=== PATIENT | male | born 1940 | race Caucasian/White ===

== ENCOUNTER → 2018-02-10 | Outpatient (CLI) | payer MEDICARE ==
[~2018-02-10] MED LIST: DOBUTamine DRIP for NUC MED 500 MG in DEXTROSE/WATER 1 250ML.BAG IV ONE
--- NOTE | 2018-02-10 14:29 | ECHOS ---
STRESS ECHOCARDIOGRAM INDICATIONS: Chest pain. MEDICATIONS: Quinine, Tradjenta, losartan, simvastatin, Tresiba, vitamins. BASELINE HEART RATE: 71 BASELINE BLOOD PRESSURE: 142/78 MAXIMUM HEART RATE: 121 MAXIMUM BLOOD PRESSURE: 133/51 85% MPHR: 120 100% MPHR: 141 MAXIMUM STAGE REACHED: III TOTAL EXERCISE TIME: 9:56 CLINICAL INFORMATION: Patient was given dobutamine infusion according to the standard protocol. Peak heart rate of 121 was achieved. Maximum blood pressure of 133/51 mmHg was noted. Resting EKG shows normal sinus rhythm with normal DE interval and QRS duration and nonspecific ST changes were noted. Occasional PVCs were noted during dobutamine infusion. No significant ST-segment change from the baseline was noted. The baseline echocardiographic images reveal normal left ventricular chamber size with normal left ventricular systolic function at the peak dose of dobutamine infusion. Normal increase in the wall thickness and contractility is noted. FINAL IMPRESSION: This dobutamine stress echocardiographic study is negative for stress-induced ischemia. EKG portion of the stress is not suggestive of ischemia. Occasional premature ventricular contractions were noted. MMODL / IJN: [id number] /
== END ==
LOC: RADNMMAIN 09:40
PROVIDERS: ATTEND Internal Medicine
DX: R07.89 Other chest pain (principal)
CPT/HCPCS: 93351; J1250

== ENCOUNTER 2018-03-31 14:43 | Emergency (ER) | payer MEDICARE ==
[2018-03-31 14:49] VITALS: RESP 18; TEMP 98.1
[2018-03-31 15:27] LABS: Albumin 3.9 g/dL (3.5-5.0); Calcium 9.4 mg/dL (8.4-10.2); Magnesium 2.2 mg/dL (1.6-2.3); Potassium 5.1 mmol/L (3.5-5.1); Total Bilirubin 0.3 mg/dL (0.2-1.3); Total Protein 6.8 g/dL (6.3-8.2)
[2018-03-31 15:28] LABS: Basophils % (A) 0 %; Eosinophils % (A) 0 %; HCT 44.3 % (39.0-53.0); HGB 13.6 gm/dL (13.0-17.5); Lymphocytes # (A) 1.3 k/uL (1.0-4.8); Lymphocytes % (A) 14 %; MCH 28.2 pg (25.0-35.0); MCHC 30.6 g/dL (31.0-37.0); MCV 92.2 fL (80.0-100.0); Mean Platelet Volume 7.1; Monocytes # (A) 0.7 k/uL (0-1.0); Monocytes % (A) 7 %; Neutrophils % (A) 75 %; Platelet Count 317 k/uL (150-450); RBC 4.81 m/uL (4.30-5.90); RDW 14.1 % (11.5-15.5); WBC 9.3 k/uL (3.8-10.6)
[2018-03-31 15:33] LABS: Partial Thromboplastin Time 22.7 sec (22.0-30.0); Prothrombin Time 9.7 sec (9.0-12.0)
[2018-03-31 15:39] LABS: Creatine Kinase 98 U/L (55-170)
--- NOTE | 2018-03-31 15:49 | XR ---
EXAMINATION TYPE: XR chest 2V DATE OF EXAM: 03/31/2018 COMPARISON: 11/05/2009 INDICATION: Short of breath chest pain TECHNIQUE: Frontal and lateral views of the chest are obtained. FINDINGS: The heart size is normal. The pulmonary vasculature is normal. The lungs are clear. IMPRESSION: 1. No acute pulmonary process.
[2018-03-31 15:53] LABS: Creatine Kinase MB 4.3 ng/mL (0.0-2.4); Troponin I <0.012 ng/mL (0.000-0.034)
--- NOTE | 2018-03-31 16:10 | ED ---
General Adult HPI - General Chief complaint: Chest Pain Stated complaint: Chest Pain Source: patient Mode of arrival: ambulatory Limitations: no limitations - History of Present Illness Initial comments: Dictation was produced using [employer] dictation software. please excuse any grammatical, word or spelling errors. Chief Complaint: 77-year-old male with past medical history diabetes and hypertension presents with chronic chest pain and request for CT of his chest. History of Present Illness: Patient is 77-year-old male presents independently. He was told that he had an abnormal chest x-ray performed outpatient his primary care physician's office. His PCP is Dr. Chacon. Patient was supposed to have a outpatient CT scheduled however he did not hear back from his PCPs office. He called his insurance company his insurance company told to come to the emergency department to get the CT performed. Patient states she's been having severe chest pain ongoing for the last month. He states his pain is worse with exertion. 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 Denies any constitutional symptoms. Denies any history of COPD or asthma. The ROS documented in this emergency department record has been reviewed and confirmed by me. Those systems with pertinent positive or negative responses have been documented in the HPI. All other systems are other negative and/or noncontributory. - Related Data Home Medications Medication Instructions Recorded Confirmed Ascorbic Acid [Vitamin C] 500 mg PO DAILY 03/31/18 03/31/18 Cholecalciferol [Vitamin D3] 1,000 unit PO DAILY 03/31/18 03/31/18 Cyanocobalamin [Vitamin B-12] 500 mcg PO DAILY 03/31/18 03/31/18 Insulin Degludec [Tresiba 10 unit SQ HS 03/31/18 03/31/18 Flextouch U-100] Insulin Glulisine [Apidra Solostar] 8 unit SQ TID 03/31/18 03/31/18 Linagliptin [Tradjenta] 5 mg PO DAILY 03/31/18 03/31/18 Losartan Potassium 50 mg PO DAILY 03/31/18 03/31/18 QUEtiapine FUMARATE [SEROquel] 300 mg PO HS 03/31/18 03/31/18 Simvastatin [Zocor] 40 mg PO HS 11/01/18 11/01/18 glipiZIDE XL [Glucotrol Xl] 5 mg PO BID 03/31/18 03/31/18 Allergies Allergy/AdvReac Type Severity Reaction Status Date / Time ciprofloxacin [From Cipro] Allergy Swelling Verified 03/31/18 16:05 Iodinated Contrast- Oral and Allergy Unknown Verified 03/31/18 16:05 IV Dye propoxyphene [From Darvon] Allergy Unknown Verified 03/31/18 16:05 Review of Systems ROS Statement: Those systems with pertinent positive or pertinent negative responses have been documented in the HPI. ROS Other: All systems not noted in ROS Statement are negative. Past Medical History Past Medical History: Diabetes Mellitus, Hypertension History of Any Multi-Drug Resistant Organisms: None Reported Past Surgical History: Back Surgery Additional Past Surgical History / Comment(s): hand surgery Past Psychological History: No Psychological Hx Reported Smoking Status: Former smoker Past Alcohol Use History: None Reported Past Drug Use History: None Reported General Exam - General Exam Comments Initial Comments: PHYSICAL EXAM: General Impression: Alert and oriented x3, not in acute distress HEENT: Normocephalic atraumatic, extra-ocular movements intact, pupils equal and reactive to light bilaterally, mucous membranes moist. Cardiovascular: Heart regular rate and rhythm, S1&S2 audible, no murmurs, rubs or gallops Chest: Lungs clear to auscultation bilaterally, no rhonchi, no wheeze, no rales , reproducible tenderness to his anterior chest bilaterally. Abdomen: Bowel sounds present, abdomen soft, non-tender, non-distended, no organomegaly Musculoskeletal: Pulses present and equal in all extremities, no peripheral edema Motor: Power 5/5 bilaterally, no focal deficits noted Neurological: CN II-XII grossly intact, no focal motor or sensory deficits noted Skin: Intact with no visualized rashes Psych: Normal affect and mood Limitations: no limitations Course Vital Signs 03/31/18 14:45 Temperature 98.1 F Pulse Rate 77 Respiratory 18 Rate Blood Pressure 128/64 O2 Sat by Pulse 98 Oximetry Medical Decision Making - Medical Decision Making ED course: 77-year-old male with 1 month history of chest pain presents with request for CT imaging of his chest. Are within acceptable limits. EKG is benign.Lab data evaluation obtained showing no acute processes. Patient has redemonstration of his chronic kidney disease. Glucose is 331. Chest x-ray and computed tomography scan of the chest was obtained showing no acute processes. EKGs benign. Patient be discharged. He is told to follow-up with his primary care physician. It is thought that patient's chest symptoms are secondary to musculoskeletal strain. Patient understandable and agreeable. EKG Interpretation: A 12 lead EKG was obtained. It was interpreted by myself and attending physician. There is a P wave before every QRS complex. Rate is 85. Rhythm is normal sinus rhythm, OK interval 160, QRS 94, QTC 428.. QT is not prolonged. No ST segment depression or elevation. . Overall, this EKG is unremarkable - Lab Data Result diagrams: 03/31/18 15:00 03/31/18 15:00 Lab Results 03/31/18 03/31/18 03/31/18 Range/Units 15:00 15:00 15:00 WBC 9.3 (3.8-10.6) k/uL RBC 4.81 (4.30-5.90) m/uL Hgb 13.6 (13.0-17.5) gm/dL Hct 44.3 (39.0-53.0) % MCV 92.2 (80.0-100.0) fL MCH 28.2 (25.0-35.0) pg MCHC 30.6 L (31.0-37.0) g/dL RDW 14.1 (11.5-15.5) % Plt Count 317 (150-450) k/uL Neutrophils % 75 % Lymphocytes % 14 % Monocytes % 7 % Eosinophils % 0 % Basophils % 0 % Neutrophils # 7.0 (1.3-7.7) k/uL Lymphocytes # 1.3 (1.0-4.8) k/uL Monocytes # 0.7 (0-1.0) k/uL Eosinophils # 0.0 (0-0.7) k/uL Basophils # 0.0 (0-0.2) k/uL PT (9.0-12.0) sec INR (<1.2) APTT (22.0-30.0) sec Sodium 137 (137-145) mmol/L Potassium 5.1 (3.5-5.1) mmol/L Chloride 104 (98-107) mmol/L Carbon Dioxide 21 L (22-30) mmol/L Anion Gap 12 mmol/L BUN 39 H (9-20) mg/dL Creatinine 1.78 H (0.66-1.25) mg/dL Est GFR (CKD-EPI)AfAm 41 (>60 ml/min/1.73 sqM) Est GFR (CKD-EPI)NonAf 36 (>60 ml/min/1.73 sqM) Glucose 331 H (74-99) mg/dL Calcium 9.4 (8.4-10.2) mg/dL Magnesium 2.2 (1.6-2.3) mg/dL Total Bilirubin 0.3 (0.2-1.3) mg/dL AST 24 (17-59) U/L ALT 55 (21-72) U/L Alkaline Phosphatase 97 (38-126) U/L Total Creatine Kinase 98 (55-170) U/L CK-MB (CK-2) 4.3 H (0.0-2.4) ng/mL CK-MB (CK-2) Rel Index 4.4 Troponin I <0.012 (0.000-0.034) ng/mL Total Protein 6.8 (6.3-8.2) g/dL Albumin 3.9 (3.5-5.0) g/dL Lipase 251 (23-300) U/L 03/31/18 Range/Units 15:00 WBC (3.8-10.6) k/uL RBC (4.30-5.90) m/uL Hgb (13.0-17.5) gm/dL Hct (39.0-53.0) % MCV (80.0-100.0) fL MCH (25.0-35.0) pg MCHC (31.0-37.0) g/dL RDW (11.5-15.5) % Plt Count (150-450) k/uL Neutrophils % % Lymphocytes % % Monocytes % % Eosinophils % % Basophils % % Neutrophils # (1.3-7.7) k/uL Lymphocytes # (1.0-4.8) k/uL Monocytes # (0-1.0) k/uL Eosinophils # (0-0.7) k/uL Basophils # (0-0.2) k/uL PT 9.7 (9.0-12.0) sec INR 1.0 (<1.2) APTT 22.7 (22.0-30.0) sec Sodium (137-145) mmol/L Potassium (3.5-5.1) mmol/L Chloride (98-107) mmol/L Carbon Dioxide (22-30) mmol/L Anion Gap mmol/L BUN (9-20) mg/dL Creatinine (0.66-1.25) mg/dL Est GFR (CKD-EPI)AfAm (>60 ml/min/1.73 sqM) Est GFR (CKD-EPI)NonAf (>60 ml/min/1.73 sqM) Glucose (74-99) mg/dL Calcium (8.4-10.2) mg/dL Magnesium (1.6-2.3) mg/dL Total Bilirubin (0.2-1.3) mg/dL AST (17-59) U/L ALT (21-72) U/L Alkaline Phosphatase (38-126) U/L Total Creatine Kinase (55-170) U/L CK-MB (CK-2) (0.0-2.4) ng/mL CK-MB (CK-2) Rel Index Troponin I (0.000-0.034) ng/mL Total Protein (6.3-8.2) g/dL Albumin (3.5-5.0) g/dL Lipase (23-300) U/L Disposition Clinical Impression: Chest pain Disposition: HOME SELF-CARE Instructions: Chest Pain (ED) Is patient prescribed a controlled substance at d/c from ED?: No Referrals: Pola Rodriguez MD [Primary Care Provider] - 1-2 days Time of Disposition: 17:44
--- NOTE | 2018-03-31 17:28 | CT ---
EXAMINATION TYPE: CT chest wo con DATE OF EXAM: 03/31/2018 COMPARISON: None HISTORY: Chest pain and shortness of breath, abnormal cxr. CT DLP: 288.4 mGycm. Automated Exposure Control for Dose Reduction was Utilized. TECHNIQUE: CT scan of the thorax is performed without IV contrast. FINDINGS: The lungs are clear of consolidation. There is no evidence of a pulmonary mass. There is no pleural e ffusion. There is some mild fatty infiltration of the liver. Heart size is normal. There is no perica rdial effusion. There is minimal coronary artery calcification. Thoracic aorta is atheromatous. There is no mediastinal adenopathy. There are no hilar masses. The bony thorax appears intact. I see no co mpression fracture of the thoracic spine. Sternum is intact. IMPRESSION: There is some fatty infiltration of the liver. No acute intrathoracic abnormality. Athero sclerotic vascular disease.
[2018-03-31 18:00] VITALS: BP 121/66; PULSE 70
== END 2018-03-31 18:00 | disposition home or self-care (01) ==
LOC: EC 14:43
DX: G89.29 Other chronic pain (principal); R07.9 Chest pain, unspecified; E11.65 Type 2 diabetes mellitus with hyperglycemia; E11.22 Type 2 diabetes mellitus with diabetic chronic kidney disease; I12.9 Hypertensive chronic kidney disease with stage 1 through stage 4 chronic kidney disease, or unspecified chronic kidney disease; N18.9 Chronic kidney disease, unspecified; Z87.891 Personal history of nicotine dependence; Z79.4 Long term (current) use of insulin; Z88.1 Allergy status to other antibiotic agents; Z79.899 Other long term (current) drug therapy; Z91.041 Radiographic dye allergy status; Z88.5 Allergy status to narcotic agent
CPT/HCPCS: 36415; 71046; 71250; 80053; 82550; 82553; 83690; 83735; 84484; 85025; 85610; 85730; 93005; 99285

== ENCOUNTER → 2018-07-29 | Outpatient (CLI) | payer MEDICARE ==
[2018-07-29 16:35] LABS: HCT 46.9 % (39.0-53.0); HGB 14.9 gm/dL (13.0-17.5); Hypochromasia Slight; MCHC 31.7 g/dL (31.0-37.0); MCV 91.4 fL (80.0-100.0); Mean Platelet Volume 7.3; Platelet Count 222 k/uL (150-450); RBC 5.13 m/uL (4.30-5.90); RDW 14.3 % (11.5-15.5); WBC 9.8 k/uL (3.8-10.6)
[2018-07-29 16:44] LABS: Potassium 4.6 mmol/L (3.5-5.1)
== END ==
LOC: LABPAT 15:46
PROVIDERS: ATTEND Internal Medicine Cardiovascular Disease
DX: Z01.812 Encounter for preprocedural laboratory examination (principal); E78.2 Mixed hyperlipidemia; R07.2 Precordial pain
CPT/HCPCS: 36415; 80051; 82565; 82947; 84520; 85027

== ENCOUNTER 2018-08-03 08:47 | Day surgery (SDC) | payer MEDICARE ==
[2018-08-01 09:59] VITALS: BMI 25.8
[~2018-08-03 08:47] MED LIST changes: +ALPRAZolam 0.25 MG TAB PO PRN; +ALPRAZolam 0.5 MG TAB PO PRN; +ASPIRIN 325 MG TAB PO STA; +ATORVASTATIN 80 MG TAB PO STA; -DOBUTamine DRIP for NUC MED 500 MG in DEXTROSE/WATER 1 250ML.BAG IV ONE; +NITROGLYCERIN SL TABS 0.4 MG TAB SUBLINGUAL PRN; +SODIUM CHLORIDE 0.9% 1,000 ML in EMPTY BAG 1 BAG IV ONE
[2018-08-03] MEDS ORDERED: SODIUM CHLORIDE 0.9% 1,000 ML IV ONE (09:15)
[2018-08-03 09:20] LABS: Glucose,Whole Blood 215 mg/dL (75-99)
[2018-08-03] MEDS ORDERED: ALPRAZolam 0.25 MG TAB PO ONE (10:00)
[2018-08-03] MEDS ORDERED: ASPIRIN 325 MG TAB PO ONE (10:00)
[2018-08-03] MEDS ORDERED: LIDOCAINE 1% INJ 10MG/ML (20 ML MDV) ONE (10:48)
[2018-08-03] MEDS: MIDAZOLAM 2 MG/2 ML VIAL IVP ONE ×2 (11:09→11:13)
[2018-08-03] MEDS ORDERED: LIDOCAINE 1% INJ 10MG/ML (20 ML MDV) SQ ONE (11:12)
[2018-08-03] MEDS ORDERED: fentaNYL (PF) 50 MCG/ML 2 ML AMP ONE (11:13)
[2018-08-03] MEDS: fentaNYL (PF) 50 MCG/ML 2 ML AMP IVP ONE ×2 (11:15→11:48)
[2018-08-03] MEDS ORDERED: NITROGLYCERIN OINT 1 INCH/GM PACKET TOPICAL ONE ×2 (11:22→11:23)
[2018-08-03] MEDS ORDERED: BIVALIRUDIN BOLUS 250 MG/50 ML IV ONE (11:48)
[2018-08-03] MEDS ORDERED: BIVALIRUDIN 250 MG in SODIUM CHLORIDE 0.9% 39 ML IV ONE (11:48)
[2018-08-03] MEDS ORDERED: NITROGLYCERIN 1000MCG/10ML SYRINGE INTRACORON ONE (11:49)
[2018-08-03] MEDS ORDERED: CLOPIDOGREL 75 MG TAB ONE (11:51)
[2018-08-03] MEDS ORDERED: CLOPIDOGREL 75 MG TAB PO ONE (11:55)
[2018-08-03] MEDS ORDERED: IOPAMIDOL-370 150ML BTL INJ ONE (11:55)
[2018-08-03] MEDS ORDERED: ATROPINE SULFATE 0.1 MG/ML 10ML SYRINGE IV PRN (12:05)
[2018-08-03] MEDS ORDERED: NITROGLYCERIN SL TABS 0.4 MG TAB SUBLINGUAL PRN (12:05)
[2018-08-03] MEDS ORDERED: MAG HYDROX/AL HYDROX/SIMETH 30 ML CUP PO PRN (12:05)
[2018-08-03] MEDS ORDERED: ZOLPIDEM 5 MG TAB PO PRN (12:05)
[2018-08-03] MEDS ORDERED: RX INFO: IV CONTRAST WAS GIVEN 1 EACH MISC MISCELLANE PRN (12:05)
--- NOTE | 2018-08-03 12:17 | CC ---
CARDIAC CATHETERIZATION REPORT INDICATION: Unstable angina. PROCEDURE NOTE: After obtaining informed consent, left heart catheterization, coronary angiogram are performed via the right femoral artery using standard Azalea catheters. The patient tolerated the procedure well without any obvious immediate complications. The patient received moderate conscious sedation. Total sedation time was 26 minutes. The patient has renal insufficiency. His creatinine is 1.7. I hydrated him prior to cath and I will continue to hydrate him post cath. The patient understands the risk of contrast induced nephropathy, but was agreeable to go through the procedure understanding the risks. FINDINGS: 1. HEMODYNAMICS: Left ventricular end-diastolic pressure is 20 to 22 mm. There is no significant gradient across aortic valve. 2. LEFT VENTRICULOGRAM: Left ventriculogram is not performed. 3. ANGIOGRAPHIC DATA: Left Main Coronary Artery: Left main coronary artery is a short vessel but is free of stenosis. Divides into left anterior descending coronary artery and circumflex coronary artery. LAD shows an ulcerated plaque with 60% stenosis in the proximal part. Very distal LAD also shows a 70% stenosis. Circumflex coronary artery is a large dominant vessel that shows moderate area of atherosclerotic plaque in the proximal part and in the very distal portion as it becomes the AV groove circumflex, there is a 70% to 80% stenosis. Right coronary artery is a small nondominant vessel and has a 95% stenosis in the proximal part. CONCLUSION: Severe 3-vessel coronary artery disease as described above with a focal hemodynamically significant lesion in the left anterior descending artery. PLAN: Patient will undergo angioplasty with stent placement of proximal LAD given the unstable nature of the lesion and in a patient who is symptomatic. We will see how he does with this and if necessary, we will consider angioplasty of the circumflex and the RCA down the road if we have to. MMODL / IJN: [id number] /
--- NOTE | 2018-08-03 12:22 | PTCA ---
PERCUTANEOUSTRANS CORORONARY ANGIOGRAPHY DATE OF SERVICE: August 03, 2018 PERFORMING PHYSICIAN: Aamir Garcia MD, gas analyst. PROCEDURE PERFORMED: Successful stenting of the proximal LAD using 2.75 x 18 mm Xience CONSTANCE with good angiographic results. INDICATION: This is a pleasant 78-year-old gentleman who sees Dr. Andres in the office as an outpatient who was experiencing symptoms of chest discomfort concerning for ischemic heart disease. He underwent a heart catheterization today and that revealed severe disease involving the proximal LAD with ulcerated unstable lesion. APPROACH: Right common femoral artery. COMPLICATION: None. LEVEL OF SEDATION: Moderate sedation length of 15 minutes. PROCEDURE DESCRIPTION: Please refer to diagnostic heart catheterization that was performed by Dr. Andres. Anticoagulation was initiated using Angiomax. Subsequently I did engage the left main using JL4 with a short tip. The LAD was wired using a run-through wire. I did direct stenting using 2.75 x 18 mm Xience drug-eluting stent where the stent was positioned under fluoroscopy guidance and deployed under 18 atmospheres for 40 seconds. The following angiogram showed good results and the procedure was completed without any complication. POSTPROCEDURE MANAGEMENT: 1. Dual antiplatelet therapy. 2. Risk factors modifications. 3. Follow up with the patient. MMODL / IJN: [id number] /
--- NOTE | 2018-08-03 12:22 | LTR ---
August 03, 2018 Re: Edwin Sorensen Dear Dr. Rodriguez: I performed cardiac catheterization on Edwin Sorensen. A detailed catheterization note is enclosed for your records. In brief, the cardiac catheterization reveals three-vessel coronary artery disease with an ulcerated plaque in the proximal LAD for which he is going to undergo angioplasty with stent placement. Thank you for giving me the privilege to participate in the care of this pleasant gentleman. Sincerely, MD GOKUL Eid / LORELEI: [id number] /
[2018-08-03] MEDS: INSULIN ASPART (NovoLOG) 100 UNIT/ML VIAL SQ SCH ×3 (14:36→21:13)
[2018-08-03] MEDS: SODIUM CHLORIDE 0.9% 1,000 ML IV SCH (14:36)
[2018-08-03 16:47] LABS: Glucose,Whole Blood 327 mg/dL (75-99)
[2018-08-03] MEDS ORDERED: INSULIN ASPART (NovoLOG) 100 UNIT/ML VIAL SQ SCH (17:30)
[2018-08-03 20:33] LABS: Glucose,Whole Blood 291 mg/dL (75-99)
[2018-08-03] MEDS ORDERED: INSULIN DETEMIR (LEVEMIR) 100 UNIT/ML SYR SQ SCH (21:00)
[2018-08-03] MEDS ORDERED: FINASTERIDE 5 MG TAB PO SCH (21:00)
[2018-08-04 00:03] VITALS: RESP 18
[2018-08-04 00:07] LABS: Glucose,Whole Blood 304 mg/dL (75-99)
[2018-08-04] MEDS: SODIUM CHLORIDE 0.9% 1,000 ML IV SCH (06:23)
[2018-08-04 06:29] LABS: Calcium 8.8 mg/dL (8.4-10.2); Potassium 4.5 mmol/L (3.5-5.1)
[2018-08-04 06:37] LABS: Basophils # (A) 0.1 k/uL (0-0.2); Basophils % (A) 0 %; Eosinophils # (A) 0.1 k/uL (0-0.7); Eosinophils % (A) 1 %; HCT 43.5 % (39.0-53.0); HGB 13.4 gm/dL (13.0-17.5); Lymphocytes # (A) 2.7 k/uL (1.0-4.8); Lymphocytes % (A) 16 %; MCHC 30.9 g/dL (31.0-37.0); MCV 90.7 fL (80.0-100.0); Mean Platelet Volume 6.9; Monocytes % (A) 6 %; Neutrophils # (A) 12.5 k/uL (1.3-7.7); Neutrophils % (A) 74 %; Platelet Count 228 k/uL (150-450); RBC 4.79 m/uL (4.30-5.90); RDW 14.4 % (11.5-15.5); WBC 16.9 k/uL (3.8-10.6)
[2018-08-04] MEDS: INSULIN ASPART (NovoLOG) 100 UNIT/ML VIAL SQ SCH ×2 (06:53→12:59)
[2018-08-04] MEDS ORDERED: INSULIN ASPART (NovoLOG) 100 UNIT/ML VIAL SQ SCH ×2 (07:30→12:00)
[2018-08-04] MEDS ORDERED: ASPIRIN 325 MG TAB PO SCH (09:00)
[2018-08-04] MEDS ORDERED: ASCORBIC ACID 500 MG TAB PO SCH (09:00)
[2018-08-04] MEDS ORDERED: CYANOCOBALAMIN 500 MCG TAB PO SCH (09:00)
[2018-08-04] MEDS ORDERED: TAMSULOSIN 0.4 MG CAP.ER.24H PO SCH (09:00)
[2018-08-04] MEDS ORDERED: CHOLECALCIFEROL 1,000 UNIT TAB PO SCH (09:00)
[2018-08-04] MEDS ORDERED: LOSARTAN 50 MG TAB PO SCH (09:00)
[2018-08-04 11:49] LABS: Glucose,Whole Blood 93 mg/dL (75-99)
[2018-08-04] MEDS ORDERED: CLOPIDOGREL 75 MG TAB PO SCH (12:00)
--- NOTE | 2018-08-04 12:50 | DS ---
DISCHARGE SUMMARY DATE OF ADMISSION: 08/03/2018. DATE OF DISCHARGE: 08/04/2018. FINAL DIAGNOSES: 1. Unstable angina. 2. Multivessel coronary artery disease. PROCEDURES PERFORMED: 1. Left heart catheterization. 2. Angioplasty with stent placement. HOSPITAL COURSE: This is an 78-year-old gentleman who presented to me with symptoms of unstable angina and underwent cardiac catheterization. His cardiac catheterization revealed multivessel coronary artery disease with severe stenosis involving proximal LAD. He also has stenotic lesions within the circumflex coronary artery and a nondominant right coronary artery. The patient underwent angioplasty of LAD. The patient has had a fairly uneventful perioperative course, doing well and is free of symptoms, ambulating without any problems. CONDITION AT THE TIME OF DISCHARGE: Vital signs are stable. O2 sat is 97% on room air. There is no jugular venous distention. Carotid upstroke is normal. There is no bruit. Chest exam reveals good air entry bilaterally. Heart exam reveals first and second heart sounds. No gallop. No murmur. Groin is free of bleeding, bruit, hematoma. Foot pulses are intact. EKG shows sinus rhythm with nonspecific anterolateral ST-T wave changes. FOLLOWUP: He will be seen by me in the office in a week's time. DISCHARGE MEDICATIONS: Discharge medications include: 1. Aspirin. 2. Plavix 75 mg daily. 3. Zocor 40 mg daily. 4. Insulin. 5. Losartan 50 mg daily. 6. Proscar. 7. Vitamin D. I am not starting the patient on a beta beverley at this time given the sinus bradycardia. MMODL / IJN: [id number] /
[2018-08-04 13:03] VITALS: BP 157/73; PULSE 84; TEMP 98.1
[2018-08-04] MEDS ORDERED: ATORVASTATIN 20 MG TAB PO SCH (21:00)
== END 2018-08-04 13:45 | disposition home or self-care (01) ==
LOC: CATHCVL 08:47 → 3SCARD 13:40 → CATHCVL 08-04 13:45
PROVIDERS: ATTEND Internal Medicine Cardiovascular Disease
DX: I25.110 Atherosclerotic heart disease of native coronary artery with unstable angina pectoris (principal); I10 Essential (primary) hypertension; E11.9 Type 2 diabetes mellitus without complications; F17.200 Nicotine dependence, unspecified, uncomplicated; Z79.4 Long term (current) use of insulin; Z79.899 Other long term (current) drug therapy; Z88.1 Allergy status to other antibiotic agents; Z88.8 Allergy status to other drugs, medicaments and biological substances; Z88.5 Allergy status to narcotic agent; E78.2 Mixed hyperlipidemia
CPT/HCPCS: 80048; 85025; 93458; C1874

== ENCOUNTER → 2019-02-27 | Outpatient (CLI) | payer MEDICARE ==
[2019-02-27 16:32] LABS: Basophils # (A) 0.1 k/uL (0-0.2); Basophils % (A) 1 %; Eosinophils # (A) 0.2 k/uL (0-0.7); Eosinophils % (A) 2 %; HCT 45.3 % (39.0-53.0); HGB 14.9 gm/dL (13.0-17.5); Lymphocytes # (A) 1.8 k/uL (1.0-4.8); Lymphocytes % (A) 15 %; MCV 88.1 fL (80.0-100.0); Mean Platelet Volume 7.4; Monocytes # (A) 0.6 k/uL (0-1.0); Monocytes % (A) 6 %; Neutrophils # (A) 8.5 k/uL (1.3-7.7); Neutrophils % (A) 73 %; Platelet Count 230 k/uL (150-450); RBC 5.14 m/uL (4.30-5.90); RDW 14.3 % (11.5-15.5); WBC 11.7 k/uL (3.8-10.6)
[2019-02-28 01:54] LABS: African American GFR (CKD) 40.3 (60.0-200.0); Albumin 4.6 g/dL (3.80-4.90); Albumin/Globulin Ratio 2.56 (1.60-3.17); Anion Gap 14.5 mmol/L (4.00-12.00); BUN/Creat Ratio 20.56 Ratio (12.00-20.00); Calcium 9.5 mg/dL (8.7-10.3); Carbon Dioxide 20.5 mmol/L (21.6-31.8); Chol/HDL Ratio 5.42; Globulin 1.8 g/dL (1.6-3.3); LDL Cholesterol,Calculated 58.6 mg/dL (0.0-131.0); Potassium 4.7 mmol/L (3.5-5.5); Total Bilirubin 0.2 mg/dL (0.2-1.2); Total Protein 6.4 g/dL (6.2-8.2); VLDL Calculation 100.4 mg/dL (5.00-40.00)
== END | disposition home or self-care (01) ==
LOC: LABWHC1 15:04
PROVIDERS: ATTEND Internal Medicine
DX: E11.42 Type 2 diabetes mellitus with diabetic polyneuropathy (principal); I10 Essential (primary) hypertension; E03.9 Hypothyroidism, unspecified
CPT/HCPCS: 36415; 80053; 80061; 82043; 82570; 84443; 85025

== ENCOUNTER → 2019-03-20 | Outpatient (CLI) | payer MEDICARE ==
--- NOTE | 2019-03-20 15:56 | CT ---
EXAMINATION TYPE: CT abdomen pelvis wo con DATE OF EXAM: 03/20/2019 COMPARISON: None INDICATION: Microhematuria DLP: 785 mGycm, Automated exposure control for dose reduction was used. CONTRAST: No intravenous contrast Study performed without Oral Contrast TECHNIQUE: Axial images were obtained from above the diaphragm to the pubic rami in the axial plane a t 5 mm thick sections. Reconstructed images are reviewed on the computer in the coronal plane. FINDINGS: Limited CT sections are obtained the lung bases. The lung bases are clear. Urinary calcification is present. CT ABDOMEN: Liver: There is moderate fatty infiltration liver. No discrete masses or cysts are evident. Spleen: Normal Pancreas: Normal Adrenal glands: The adrenal glands are normal. Gallbladder: Normal Kidneys: There are multiple bilateral renal stones without evidence of obstruction. There is a 1.5 cm cyst like area of the medial aspect of the mid to inferior right kidney. No hydronephrosis or hydrou reter is evident. Aorta: Vascular calcification is within the aorta. Inferior vena cava: Normal. CT PELVIS: r periumbilical fat-containing hernia is present. This has an opening of 0.9 cm. Loops of bowel within the abdomen and pelvis are normal. There are scattered diverticuli within the sigmoid colon. No inflammatory changes just acute diverticulitis is evident. There are loops of bow el which are incompletely distended or lack oral contrast limiting their evaluation. Appendix: Normal as visualized. Urinary bladder: Decompressed limiting evaluation Genitourinary structures: Prostate is prominent contains some calcification. Osseous structures: No suspicious lytic or sclerotic lesions. IMPRESSIONS: 1. Multiple nonobstructing bilateral renal stones. 2. Diverticulosis without acute diverticulitis. 3. Moderate fatty infiltration of liver.
== END ==
LOC: RADCTMAIN 13:24
PROVIDERS: ATTEND Urology
DX: N20.0 Calculus of kidney (principal); K76.0 Fatty (change of) liver, not elsewhere classified; K57.90 Diverticulosis of intestine, part unspecified, without perforation or abscess without bleeding
CPT/HCPCS: 74176

== ENCOUNTER → 2019-06-26 | Outpatient (CLI) | payer MEDICARE ==
[2019-06-26 17:07] LABS: HCT 47.9 % (39.0-53.0); HGB 15.1 gm/dL (13.0-17.5); MCH 28.5 pg (25.0-35.0); MCHC 31.5 g/dL (31.0-37.0); MCV 90.7 fL (80.0-100.0); Mean Platelet Volume 7.8; Platelet Count 260 k/uL (150-450); RBC 5.28 m/uL (4.30-5.90); RDW 14.2 % (11.5-15.5); WBC 12.2 k/uL (3.8-10.6)
[2019-06-26 23:25] LABS: Anion Gap 8.4 mmol/L (4.00-12.00); Carbon Dioxide 22.6 mmol/L (21.6-31.8); Non-African American GFR(CKD) 34.5 (60.0-200.0); Potassium 4.6 mmol/L (3.5-5.5)
== END | disposition home or self-care (01) ==
LOC: LABWHC1 15:46
PROVIDERS: ATTEND Internal Medicine Cardiovascular Disease
DX: R06.02 Shortness of breath (principal)
CPT/HCPCS: 36415; 80051; 82565; 84520; 85027; 85379

== ENCOUNTER → 2019-06-28 | Outpatient (CLI) | payer MEDICARE ==
--- NOTE | 2019-06-28 16:27 | NM ---
EXAMINATION TYPE: NM pul vent and perfuse DATE OF EXAM: 06/28/2019 COMPARISON: No chest x-ray is submitted for correlation HISTORY: Pulmonary embolism, elevated d-dimer TECHNIQUE: Utilizing inhalation of 61.1 mCi Tc 99m DTPA aerosol and intravenous injection of 4.6 mCi of Tc 99m MAA, ventilation and perfusion images are acquired post injection in multiple projections. FINDINGS: Normal radiotracer distribution is noted in the lungs. There is no evidence of mismatched defects. IMPRESSION: Low probability for pulmonary embolism, no chest x-ray submitted for correlation
--- NOTE | 2019-06-29 08:59 | XR ---
EXAMINATION TYPE: XR chest 2V DATE OF EXAM: 06/28/2019 COMPARISON: Prior chest x-ray 03/31/2018 HISTORY: Pulmonary embolism, elevated d-dimer TECHNIQUE: Frontal and lateral views of the chest are obtained. FINDINGS: There is no focal air space opacity, pleural effusion, or pneumothorax seen. The cardiac silhouette size is within normal limits. The osseous structures are intact. There is dense. IMPRESSION: No acute cardiopulmonary process.
== END | disposition home or self-care (01) ==
LOC: RADNMMAIN 14:36
PROVIDERS: ATTEND Internal Medicine Cardiovascular Disease
DX: I26.99 Other pulmonary embolism without acute cor pulmonale (principal)
CPT/HCPCS: 71046; 78582; A9540; A9567

== ENCOUNTER → 2019-10-09 | Outpatient (CLI) | payer MEDICARE | END | disposition home or self-care (01) | LOC: LABWHC1 12:14 | PROVIDERS: ATTEND Internal Medicine Gastroenterology | DX: U07.1 COVID-19 (principal) | CPT/HCPCS: 87635 ==

== ENCOUNTER → 2019-10-11 | Day surgery (SDC) | payer MEDICARE ==
[2019-10-10 12:53] VITALS: BMI 26.3
[~2019-10-11] MED LIST changes: -ALPRAZolam 0.25 MG TAB PO PRN; -ALPRAZolam 0.5 MG TAB PO PRN; -ASPIRIN 325 MG TAB PO STA; -ATORVASTATIN 80 MG TAB PO STA; +IV FLUID CONTINUATION 1,000 ML IV ONE; +LACTATED RINGERS 1,000 ML IV ONE; +LACTATED RINGERS 1,000 ML IV SCH; +LIDOCAINE 1% (10MG/ML) FOR IV START INTRADERMA PRN; +LIDOCAINE 1% INJ 10MG/ML (20 ML MDV) ONE; -NITROGLYCERIN SL TABS 0.4 MG TAB SUBLINGUAL PRN; +PROPOFOL 10 MG/ML 20 ML VIAL IV ONE; -SODIUM CHLORIDE 0.9% 1,000 ML in EMPTY BAG 1 BAG IV ONE
[2019-10-11 09:39] VITALS: TEMP 98
[2019-10-11 09:49] LABS: Glucose,Whole Blood 136 mg/dL (75-99)
--- NOTE | 2019-10-11 10:28 | P.PCN ---
Date of Procedure: 10/11/19 Procedure(s) Performed: Brief history: Patient is a pleasant 79-year-old white male, scheduled for an elective upper endoscopy as well as colonoscopy as a part of evaluation of black tarry stools for the last 2 weeks' duration. The same time he started having some lower abdominal pain and diarrhea. No prior history of peptic ulcer disease or recent NSAID use. His last colonoscopy was about 11 years ago. Procedure performed: Esophagogastroduodenoscopy with biopsy Colonoscopy with biopsy Preoperative diagnosis: Melena of 2 weeks' duration Lower abdominal pain and change in bowel habits Anesthesia: MAC Procedure: After informed consent was obtained from the patient was brought into the en doscopy unit and IV sedation was administered by anesthesia under continuous monitoring. Initially upper endoscopy was done. The Olympus GF 160 video endoscope was inserted inserted into the mouth and esophagus intubated without any difficulty and was gradually advanced into the stomach and duodenum and carefully examined. The bulb and second part of the duodenum had mild erythema consistent with duodenitis along the duodenal sweep the mucosa appeared nodular with small polyps which were biopsied. The scope was then withdrawn into the stomach adequately insufflated with air and upon careful examination the antrum had mild gastritis and biopsies were done from this area. The body, cardia and fundus appeared normal. The scope was then withdrawn into the esophagus. The GE junction was located at 40 cm to the incisors. It appeared regular with no erythema erosions or ulcerations. Rest of the esophagus appeared normal. Patient tolerated the procedure well. At this time the patient continued to remain sedation. Initial digital rectal examination was normal. Olympus CF 160 video colonoscope was then inserted into the rectum and gradually advanced to the cecum without any difficulty. Careful examination was performed as the scope was gradually being withdrawn. The prep was excellent. The cecum, ascending colon, transverse colon, descending colon, sigmoid colon and rectum appeared normal. Moderate left-sided diverticulosis. There was a 2-3 mm transverse colon polyp that was removed by cold biopsy Retroflexion was performed in the rectum and no lesions were noted. Random biopsies were done from ascending and descending colon to rule out microscopic/collagenous colitis. Patient tolerated the procedure well. Impression: 1. UpperEndoscopy revealed duodenitis, gastritis and small duodenal polyp status post biopsy 2. Colonoscopy revealed moderate left-sided diverticulosis but no evidence of colitis . 2 mm transverse colon polyp status post removal by cold biopsy Recommendations: Findings of this examination were discussed with the patient as well as his family. He was advised to follow with the biopsy results.. He will be seen in the Office in 2-3 weeks.
[2019-10-11 10:35] VITALS: RESP 16
[2019-10-11 10:51] VITALS: BP 127/67; PULSE 75
== END ==
LOC: ORWHC2ENDO 09:10
PROVIDERS: ATTEND Internal Medicine Gastroenterology
DX: K29.50 Unspecified chronic gastritis without bleeding (principal); K29.80 Duodenitis without bleeding; K63.5 Polyp of colon; I10 Essential (primary) hypertension; I25.10 Atherosclerotic heart disease of native coronary artery without angina pectoris; E11.9 Type 2 diabetes mellitus without complications; K31.7 Polyp of stomach and duodenum; K57.30 Diverticulosis of large intestine without perforation or abscess without bleeding; Z79.02 Long term (current) use of antithrombotics/antiplatelets; Z79.890 Hormone replacement therapy; Z79.4 Long term (current) use of insulin; Z79.899 Other long term (current) drug therapy; Z88.1 Allergy status to other antibiotic agents; Z88.5 Allergy status to narcotic agent; Z91.041 Radiographic dye allergy status
CPT/HCPCS: 88305; 45380; 43239; J2001; J2704

== ENCOUNTER 2019-12-05 13:13 | Inpatient (IN) | payer MEDICARE ==
[2019-12-05] MEDS ORDERED: SODIUM CHLORIDE 0.9% 500 ML 500 ML IV STA (13:49)
[2019-12-05 14:24] LABS: Basophils # (A) 0.1 k/uL (0-0.2); Basophils % (A) 1 %; Eosinophils # (A) 0.2 k/uL (0-0.7); Eosinophils % (A) 2 %; HCT 46.8 % (39.0-53.0); HGB 14.7 gm/dL (13.0-17.5); Lymphocytes # (A) 1.9 k/uL (1.0-4.8); Lymphocytes % (A) 14 %; MCHC 31.5 g/dL (31.0-37.0); Monocytes # (A) 0.8 k/uL (0-1.0); Monocytes % (A) 6 %; Neutrophils # (A) 10.3 k/uL (1.3-7.7); Neutrophils % (A) 75 %; Platelet Count 300 k/uL (150-450); RBC 5.26 m/uL (4.30-5.90); WBC 13.8 k/uL (3.8-10.6)
[2019-12-05 14:29] LABS: Appearance,Urine Cloudy (Clear); Bacteria,Urine Rare /hpf; Bilirubin,Urine Negative (Negative); Blood,Urine Moderate (Negative); Color,Urine Light Red; Glucose,Urine (UA) Trace (Negative); Hyaline Casts,Urine 6 /lpf (0-2); Ketones,Urine Negative (Negative); Leukocyte Esterase,Urine Large (Negative); Mucus,Urine Occasional /hpf; Nitrite,Urine Negative (Negative); PH, Urine 5.5 (5.0-8.0); Protein,Urine 1+ (Negative); RBC,Urine >182 /hpf (0-5); Specific Gravity,Urine 1.022 (1.001-1.035); Urobilinogen,Urine <2.0 mg/dL (<2.0); WBC,Urine >182 /hpf (0-5)
[2019-12-05 14:33] LABS: Albumin 4.1 g/dL (3.5-5.0); Calcium 10.2 mg/dL (8.4-10.2); Magnesium 2.2 mg/dL (1.6-2.3); Potassium 4.9 mmol/L (3.5-5.1); Total Bilirubin 0.4 mg/dL (0.2-1.3); Total Protein 6.9 g/dL (6.3-8.2)
--- NOTE | 2019-12-05 14:56 | CT ---
EXAMINATION TYPE: CT abdomen pelvis wo con DATE OF EXAM: 12/05/2019 COMPARISON: 03/20/2019 HISTORY: 79-year-old male Lower abdominal pain. CT DLP: 636.5 mGycm. Automated exposure control for dose reduction was used. TECHNIQUE: Contiguous axial scanning of the abdomen and pelvis without IV contrast. Coronal and sagit mary reconstructions performed. FINDINGS: Heart normal size without pericardial effusion. Mild circumferential wall thickening distal esophagus . Lung bases clear without pleural effusion. Liver borderline enlarged at 17.9 cm with marked low attenuation. Gallbladder, adrenal glands, spleen, and pancreas show no gross abnormal body by noncontrast CT. Approximately 5 nonobstructing right renal calculi are present, largest measuring 8 mm. On the left, proximally 5 nonobstructing calculi are present, largest measuring 7 mm. There is mild to moderate left-sided hydroureter ureter and hydronephrosis but without any obstructin g calculus identified. Moderate atherosclerotic calcifications abdominal aorta without aneurysm. Small fatty umbilical hernia. Scattered nonenlarged mesenteric lymph nodes are noted. Stable enlarged 1.4 cm geoffrey hepatic lymph no de. Prominent upper peripancreatic 5 mm lymph node. Stability suggests a benign etiology. Prominent a nd nonenlarged 1.2 cm portacaval lymph node. All of these are unchanged. Normal appendix. Scattered mild stool. There is sigmoid diverticulosis. Mild wall thickening and mild inflammatory fat stranding along the p roximal sigmoid, axial image 120. The bladder is thickened and small in size with surrounding fat stranding. Possible subtle extension from the mid sigmoid to the bladder dome, axial image 122 and coronal image 52. Patulous bilateral inguinal canals. Bones: Mild degenerative change of the hips. Prior L4-L5 posterior lumbar fusion with laminectomies. Moderate degenerative disc disease throughout the remainder of the lumbar spine. IMPRESSION: 1. Sigmoid diverticulosis with mild fat stranding suggesting mild acute diverticulitis along the pro ximal sigmoid. No abscess or free air. 2. Possible subtle tract extending from the midsigmoid to the bladder dome. A small fistula versus s carring as a sequela of prior diverticulitis could be considered. 3. Thickened and irregularly shrunken bladder with mild surrounding inflammation. Correlate for unde rlying cystitis. Given new mild to moderate left-sided hydronephrosis but no obstructing stone, urete ral obstruction secondary to some type of abnormal soft tissue/mass in the bladder is not excluded. C orrelate with urinalysis, urine cytology and direct visualization as indicated. 4. Bilateral nonobstructive renal calculi measuring up to 7 mm. The new [id number] left-sided hydronephrosis could alternatively relate to a recently passed stone. 5. Mild circumferential wall thickening distal esophagus. Correlate for any symptoms of esophagitis. Marked hepatic steatosis. Small fatty umbilical hernia.
--- NOTE | 2019-12-05 15:01 | ED ---
General Adult HPI - General Source: patient Mode of arrival: wheelchair Limitations: no limitations <Karina Ghotra - Last Filed: 12/05/19 18:41> <Linda Quiles - Last Filed: 12/11/19 00:31> - General Chief complaint: Dizziness Stated complaint: Dizziness Time Seen by Provider: 12/05/19 13:37 - History of Present Illness Initial comments: Patient is an 79-year-old male, history of diabetes, hypertension, presenting to the emergency Department with complaints of hematuria, lower abdominal discomfort that has been ongoing for the last month. Patient did go to see his urologist, Dr. Daly one week ago who did start him on antibiotic, patient is unaware of which antibiotic. Patient states his symptoms have still been progressing and he went back today and they recommended going to the ER. He states he also feels dizzy at times, he has increase in urinary frequency, he's not been able to sleep because of this. He describes his abdominal discomfort as very low, over his bladder. He denies any urethral discharge. Patient denies any fever or chills. He states he has passed a few small blood clots as well as a few small stones he believes. He denies any abdominal surgeries, has been having regular bowel movements. He denies any chest pain, shortness of breath. He has no further complaints at this time. Upon arrival to the ER, his vitals are stable. (Karina Ghotra) - Related Data Home Medications Medication Instructions Recorded Confirmed Ascorbic Acid [Vitamin C] 500 mg PO DAILY 03/31/18 12/05/19 Cholecalciferol [Vitamin D3] 1,000 unit PO DAILY 03/31/18 12/05/19 Cyanocobalamin [Vitamin B-12] 500 mcg PO DAILY 03/31/18 12/05/19 Losartan Potassium 50 mg PO DAILY 03/31/18 12/05/19 Simvastatin [Zocor] 40 mg PO HS 03/31/18 12/05/19 Insulin Aspart [NovoLOG] See Protocol SQ TID-W/MEALS 08/01/18 12/05/19 quiNINE SULFATE 324 mg PO HS 08/01/18 12/05/19 Insulin Glargine [Lantus] 20 unit SQ HS 10/10/19 12/05/19 Isosorbide Mononitrate [Isosorbide 30 mg PO DAILY 10/10/19 12/05/19 Mononitrate ER] Levothyroxine Sodium [Synthroid] 50 mcg PO DAILY 10/10/19 12/05/19 Clopidogrel [Plavix] 75 mg PO HS 12/05/19 12/05/19 Doxycycline Hyclate [Vibramycin] 100 mg PO BID 12/05/19 12/05/19 Allergies Allergy/AdvReac Type Severity Reaction Status Date / Time ciprofloxacin [From Cipro] Allergy Swelling Verified 12/05/19 16:42 propoxyphene [From Darvon] Allergy Hallucinati Verified 12/05/19 16:42 ons Iodinated Contrast Media AdvReac Dyspnea Verified 12/05/19 16:42 [Iodinated Contrast- Oral and IV Dye] Review of Systems ROS Other: All systems not noted in ROS Statement are negative. <Karina Ghotra - Last Filed: 12/05/19 18:41> ROS Other: All systems not noted in ROS Statement are negative. <Linda Quiles - Last Filed: 12/11/19 00:31> ROS Statement: Those systems with pertinent positive or pertinent negative responses have been documented in the HPI. Past Medical History Past Medical History: Chest Pain / Angina, Diabetes Mellitus, Hypertension Additional Past Medical History / Comment(s): shortness of breath History of Any Multi-Drug Resistant Organisms: None Reported Past Surgical History: Back Surgery Additional Past Surgical History / Comment(s): hand surgery. back surgery with 4 screws and 2 rods Past Anesthesia/Blood Transfusion Reactions: No Reported Reaction Additional Past Anesthesia/Blood Transfusion Reaction / Comment(s): son allergic to one type of anesthesia Past Psychological History: No Psychological Hx Reported Smoking Status: Former smoker Past Alcohol Use History: None Reported Past Drug Use History: None Reported - Past Family History Mother Family Medical History: Unable to Obtain Additional Family Medical History / Comment(s): adopted <Karina Ghotra - Last Filed: 12/05/19 18:41> General Exam Limitations: no limitations <Karina Ghotra - Last Filed: 12/05/19 18:41> - General Exam Comments Initial Comments: GENERAL: Well-appearing, well-nourished and in no acute distress. HEAD: Atraumatic, normocephalic. EYES: Pupils equal round and reactive to light, extraocular movements intact, sclera anicteric, conjunctiva are normal. ENT: TMs normal, nares patent, oropharynx clear without exudates. Moist mucous membranes. NECK: Normal range of motion, supple without lymphadenopathy or JVD. LUNGS: Breath sounds clear to auscultation bilaterally and equal. No wheezes rales or rhonchi. HEART: Regular rate and rhythm without murmurs, rubs or gallops. ABDOMEN: Mild tenderness to palpation of the lower abdomen, suprapubic. Soft, normoactive bowel sounds. No guarding, no rebound. No masses appreciated. : Deferred EXTREMITIES: Normal range of motion, no pitting or edema. No clubbing or cyanosis. NEUROLOGICAL: Cranial nerves II through XII grossly intact. Normal speech, normal gait. PSYCH: Normal mood, normal affect. SKIN: Warm, Dry, normal turgor, no rashes or lesions noted. (Karina Ghotra) Course Vital Signs 12/05/19 12/05/19 12/05/19 13:21 14:11 15:56 Temperature 98.0 F 98.3 F Pulse Rate 96 83 80 Respiratory 16 16 16 Rate Blood Pressure 132/67 131/73 149/76 O2 Sat by Pulse 98 99 Oximetry 12/05/19 18:12 Temperature Pulse Rate 83 Respiratory 16 Rate Blood Pressure 188/87 O2 Sat by Pulse 99 Oximetry EKG Findings - EKG Comments: EKG Findings:: Normal sinus rhythm, RBBB, no signs of acute ischemia. Ventricular rate 80, MN interval 168, QT 382. <Karina Ghotra - Last Filed: 12/05/19 18:41> Medical Decision Making - Lab Data Result diagrams: 12/05/19 14:10 12/05/19 14:10 <Karina Ghotra - Last Filed: 12/05/19 18:41> - Lab Data Result diagrams: 12/10/19 07:05 12/10/19 07:05 <Linda Quiles - Last Filed: 12/11/19 00:31> - Medical Decision Making Patient is an 79-year-old male presenting for hematuria, lower abdominal pain ongoing for 1 month. He does see urologist, Dr. Daly. He is also on an antibiotic for 1 week for possible UTI, patient is unsure of the antibiotic. Vital signs are stable upon arrival. Patient does have some lower abdominal tenderness on palpation. Labs reveal slight leukocytosis at 13.8, kidney function is stable, urine does show moderate amount of blood, wbc clumps and bacteria. Urine culture is pending. CT of the abdomen shows mild acute diverticulitis, no abscess or free air. There appears to be a small track extending from the mid sigmoid to the bladder, a small fistula versus scarring should be considered. There is new mild to moderate left-sided hydronephrosis but no obstructing stone, there may be some type of abnormal soft tissue mass in the bladder which is not excluded. They recommend direct visualization. Patient was given fluids, 1 g of Rocephin. Patient will be admitted for acute UTI, hematuria, possible fistula. Patient was accepted by Dr. Carrillo with consults to urology and surgery. Patient is in agreement with this plan of care. Case discussed with Dr. Quiles. (Karina Ghotra) I was available for consultation in the emergency department. The history and physical exam were done by the midlevel provider. I was consulted for this patients care. I reviewed the case with the midlevel provider and based on their presentation of the patient, I agree with the assessment, medical decision making and plan of care as documented. I discussed the case with Dr. Carrillo and Dr. Esteban. Chart was dictated using [employer] dictation software. Attempts were made to correct any dictation errors however some typographical errors may persist. Patient was seen during a national state of emergency due to the Covid-19 pandemic. (Linda Quiles) - Lab Data Lab Results 12/05/19 12/05/19 12/05/19 Range/Units 14:10 14:10 14:10 WBC 13.8 H (3.8-10.6) k/uL RBC 5.26 (4.30-5.90) m/uL Hgb 14.7 (13.0-17.5) gm/dL Hct 46.8 (39.0-53.0) % MCV 89.0 (80.0-100.0) fL MCH 28.0 (25.0-35.0) pg MCHC 31.5 (31.0-37.0) g/dL RDW 15.0 (11.5-15.5) % Plt Count 300 (150-450) k/uL Neutrophils % 75 % Lymphocytes % 14 % Monocytes % 6 % Eosinophils % 2 % Basophils % 1 % Neutrophils # 10.3 H (1.3-7.7) k/uL Lymphocytes # 1.9 (1.0-4.8) k/uL Monocytes # 0.8 (0-1.0) k/uL Eosinophils # 0.2 (0-0.7) k/uL Basophils # 0.1 (0-0.2) k/uL Sodium 138 (137-145) mmol/L Potassium 4.9 (3.5-5.1) mmol/L Chloride 109 H (98-107) mmol/L Carbon Dioxide 20 L (22-30) mmol/L Anion Gap 9 mmol/L BUN 39 H (9-20) mg/dL Creatinine 1.73 H (0.66-1.25) mg/dL Est GFR (CKD-EPI)AfAm 42 (>60 ml/min/1.73 sqM) Est GFR (CKD-EPI)NonAf 36 (>60 ml/min/1.73 sqM) Glucose 190 H (74-99) mg/dL Plasma Lactic Acid Alex (0.7-2.0) mmol/L Calcium 10.2 (8.4-10.2) mg/dL Magnesium 2.2 (1.6-2.3) mg/dL Total Bilirubin 0.4 (0.2-1.3) mg/dL AST 30 (17-59) U/L ALT 31 (4-49) U/L Alkaline Phosphatase 70 (38-126) U/L Total Protein 6.9 (6.3-8.2) g/dL Albumin 4.1 (3.5-5.0) g/dL Urine Color Light Red Urine Appearance Cloudy (Clear) Urine pH 5.5 (5.0-8.0) Ur Specific [place] 1.022 (1.001-1.035) Urine Protein 1+ H (Negative) Urine Glucose (UA) Trace H (Negative) Urine Ketones Negative (Negative) Urine Blood Moderate H (Negative) Urine Nitrite Negative (Negative) Urine Bilirubin Negative (Negative) Urine Urobilinogen <2.0 (<2.0) mg/dL Ur Leukocyte Esterase Large H (Negative) Urine RBC >182 H (0-5) /hpf Urine WBC >182 H (0-5) /hpf Urine WBC Clumps Occasional H (None) /hpf Urine Bacteria Rare H (None) /hpf Hyaline Casts 6 H (0-2) /lpf Urine Mucus Occasional H (None) /hpf 12/05/19 Range/Units 14:10 WBC (3.8-10.6) k/uL RBC (4.30-5.90) m/uL Hgb (13.0-17.5) gm/dL Hct (39.0-53.0) % MCV (80.0-100.0) fL MCH (25.0-35.0) pg MCHC (31.0-37.0) g/dL RDW (11.5-15.5) % Plt Count (150-450) k/uL Neutrophils % % Lymphocytes % % Monocytes % % Eosinophils % % Basophils % % Neutrophils # (1.3-7.7) k/uL Lymphocytes # (1.0-4.8) k/uL Monocytes # (0-1.0) k/uL Eosinophils # (0-0.7) k/uL Basophils # (0-0.2) k/uL Sodium (137-145) mmol/L Potassium (3.5-5.1) mmol/L Chloride (98-107) mmol/L Carbon Dioxide (22-30) mmol/L Anion Gap mmol/L BUN (9-20) mg/dL Creatinine (0.66-1.25) mg/dL Est GFR (CKD-EPI)AfAm (>60 ml/min/1.73 sqM) Est GFR (CKD-EPI)NonAf (>60 ml/min/1.73 sqM) Glucose (74-99) mg/dL Plasma Lactic Acid Alex 1.5 (0.7-2.0) mmol/L Calcium (8.4-10.2) mg/dL Magnesium (1.6-2.3) mg/dL Total Bilirubin (0.2-1.3) mg/dL AST (17-59) U/L ALT (4-49) U/L Alkaline Phosphatase (38-126) U/L Total Protein (6.3-8.2) g/dL Albumin (3.5-5.0) g/dL Urine Color Urine Appearance (Clear) Urine pH (5.0-8.0) Ur Specific [place] (1.001-1.035) Urine Protein (Negative) Urine Glucose (UA) (Negative) Urine Ketones (Negative) Urine Blood (Negative) Urine Nitrite (Negative) Urine Bilirubin (Negative) Urine Urobilinogen (<2.0) mg/dL Ur Leukocyte Esterase (Negative) Urine RBC (0-5) /hpf Urine WBC (0-5) /hpf Urine WBC Clumps (None) /hpf Urine Bacteria (None) /hpf Hyaline Casts (0-2) /lpf Urine Mucus (None) /hpf Disposition Decision Date: 12/05/19 Decision Time: 17:48 <Karina Ghotra - Last Filed: 12/05/19 18:41> <Linda Quiles - Last Filed: 12/11/19 00:31> Clinical Impression: Lower abdominal pain, UTI (urinary tract infection), Hematuria Disposition: ADMITTED IP TO THIS HOSP Condition: Stable
[2019-12-05] MEDS ORDERED: MORPHINE SULFATE 4 MG/ML SYRINGE IV PRN (17:44)
[2019-12-05] MEDS ORDERED: NALOXONE 0.4 MG/ML 1 ML VIAL IV PRN (17:44)
[2019-12-05] MEDS ORDERED: KETOROLAC 30 MG/ML 1 ML VIAL IVP PRN (17:44)
[2019-12-05] MEDS ORDERED: SODIUM CHLORIDE 0.9% 1,000 ML IV SCH (17:45)
--- NOTE | 2019-12-05 19:16 | P.GSCN ---
History of Present Illness Consult date: 12/05/19 History of present illness: I was asked to see this 79-year-old gentleman because of a urine infection that failed outpatient treatment. The patient stated that he has had burning frequency and urgency of urination for the last couple of months. He was seen by Dr. Chacon in the office and presumed to have a urinary tract infection. He is placed on an antibiotic twice daily for 10 days. He apparently just finished antibiotics. The symptoms have persisted and he thus came to the emergency room. In the emergency room his urine was very inflamed with 182 red 182 white cells. He had a computed tomography scan of the abdomen identifying some mild hydronephrosis on the left. There is also a possible fistulous track from a colon with diverticulitis. There is no air in the bladder however. He has no pneumaturia. He does have frequency and urgency every 30 minutes to an hour. He denies fever or chills. He was evaluated by several months ago for hematuria and it was recommended that he undergo cystoscopy however he declined. He has kidney stone disease. He had a ureteral calculus removed with stent placement in [place] a few years back. His CAT scan did show some stones in the kidney. He stated that he passed a stone in the last 24 hours. Review of Systems All systems: negative - Constitutional Denies fever, Denies weight loss - EENT Eyes: denies blurred vision Ears, nose, mouth and throat: Denies dysphagia - Cardiovascular Denies chest pain, Denies shortness of breath - Respiratory Denies cough, Denies 7 - Gastrointestinal Reports as per HPI, Reports abdominal pain, Reports diarrhea - Genitourinary Reports as per HPI, Denies dysuria, Denies hematuria - Integumentary Denies rash, Denies unusual bruising - Neurological Denies headaches, Denies syncope - Hematologic/Lymphatic Denies easy bleeding, Denies easy bruising Past Medical History Past Medical History: Chest Pain / Angina, Diabetes Mellitus, Hypertension Additional Past Medical History / Comment(s): shortness of breath History of Any Multi-Drug Resistant Organisms: None Reported Past Surgical History: Back Surgery Additional Past Surgical History / Comment(s): hand surgery. back surgery with 4 screws and 2 rods Past Anesthesia/Blood Transfusion Reactions: No Reported Reaction Additional Past Anesthesia/Blood Transfusion Reaction / Comm: son allergic to one type of anesthesia Past Psychological History: No Psychological Hx Reported Smoking Status: Former smoker Past Alcohol Use History: None Reported Past Drug Use History: None Reported - Past Family History Mother Family Medical History: Unable to Obtain Additional Family Medical History / Comment(s): adopted Medications and Allergies Home Medications Medication Instructions Recorded Confirmed Type Ascorbic Acid [Vitamin C] 500 mg PO DAILY 03/31/18 12/05/19 History Cholecalciferol [Vitamin D3] 1,000 unit PO DAILY 03/31/18 12/05/19 History Cyanocobalamin [Vitamin B-12] 500 mcg PO DAILY 03/31/18 12/05/19 History Losartan Potassium 50 mg PO DAILY 03/31/18 12/05/19 History Simvastatin [Zocor] 40 mg PO HS 03/31/18 12/05/19 History Insulin Aspart [NovoLOG] See Protocol SQ TID-W/MEALS 08/01/18 12/05/19 History quiNINE SULFATE 324 mg PO HS 08/01/18 12/05/19 History Insulin Glargine [Lantus] 20 unit SQ HS 10/10/19 12/05/19 History Isosorbide Mononitrate [Isosorbide 30 mg PO DAILY 10/10/19 12/05/19 History Mononitrate ER] Levothyroxine Sodium [Synthroid] 50 mcg PO DAILY 10/10/19 12/05/19 History Clopidogrel [Plavix] 75 mg PO HS 12/05/19 12/05/19 History Doxycycline Hyclate [Vibramycin] 100 mg PO BID 12/05/19 12/05/19 History Allergies Allergy/AdvReac Type Severity Reaction Status Date / Time ciprofloxacin [From Cipro] Allergy Swelling Verified 12/05/19 16:42 propoxyphene [From Darvon] Allergy Hallucinati Verified 12/05/19 16:42 ons Iodinated Contrast Media AdvReac Dyspnea Verified 12/05/19 16:42 [Iodinated Contrast- Oral and IV Dye] Surgical - Exam Vital Signs Temp Pulse Resp BP Pulse Ox 98.0 F 96 16 132/67 98 12/05/19 13:21 12/05/19 13:21 12/05/19 13:21 12/05/19 13:21 12/05/19 13:21 - General mild distress well developed, well nourished - Eyes PERRL - ENT no hearing loss - Neck no masses, trachea midline - Respiratory normal expansion, normal respiratory effort - Cardiovascular Rhythm: regular - Abdomen Abdomen: non tender - Genitourinary Prostate is 20-30 g soft and benign normal penis with no external lesions, testicles present - Integumentary no rash, no growths - Neurologic normal coordination, normal sensation - Musculoskeletal normal posture - Psychiatric oriented to time, oriented to person, oriented to place, speech is normal, memory intact Results - Labs 12/05/19 14:10 12/05/19 14:10 Abnormal Lab Results - Last 24 Hours (Table) 12/05/19 12/05/19 12/05/19 Range/Units 14:10 14:10 14:10 WBC 13.8 H (3.8-10.6) k/uL Neutrophils # 10.3 H (1.3-7.7) k/uL Chloride 109 H (98-107) mmol/L Carbon Dioxide 20 L (22-30) mmol/L BUN 39 H (9-20) mg/dL Creatinine 1.73 H (0.66-1.25) mg/dL Glucose 190 H (74-99) mg/dL Urine Protein 1+ H (Negative) Urine Glucose (UA) Trace H (Negative) Urine Blood Moderate H (Negative) Ur Leukocyte Esterase Large H (Negative) Urine RBC >182 H (0-5) /hpf Urine WBC >182 H (0-5) /hpf Urine WBC Clumps Occasional H (None) /hpf Urine Bacteria Rare H (None) /hpf Hyaline Casts 6 H (0-2) /lpf Urine Mucus Occasional H (None) /hpf Diabetes panel 12/05/19 Range/Units 14:10 Sodium 138 (137-145) mmol/L Potassium 4.9 (3.5-5.1) mmol/L Chloride 109 H (98-107) mmol/L Carbon Dioxide 20 L (22-30) mmol/L BUN 39 H (9-20) mg/dL Creatinine 1.73 H (0.66-1.25) mg/dL Glucose 190 H (74-99) mg/dL Calcium 10.2 (8.4-10.2) mg/dL AST 30 (17-59) U/L ALT 31 (4-49) U/L Alkaline Phosphatase 70 (38-126) U/L Total Protein 6.9 (6.3-8.2) g/dL Albumin 4.1 (3.5-5.0) g/dL Calcium panel 12/05/19 Range/Units 14:10 Calcium 10.2 (8.4-10.2) mg/dL Albumin 4.1 (3.5-5.0) g/dL Pituitary panel 12/05/19 Range/Units 14:10 Sodium 138 (137-145) mmol/L Potassium 4.9 (3.5-5.1) mmol/L Chloride 109 H (98-107) mmol/L Carbon Dioxide 20 L (22-30) mmol/L BUN 39 H (9-20) mg/dL Creatinine 1.73 H (0.66-1.25) mg/dL Glucose 190 H (74-99) mg/dL Calcium 10.2 (8.4-10.2) mg/dL Adrenal panel 12/05/19 Range/Units 14:10 Sodium 138 (137-145) mmol/L Potassium 4.9 (3.5-5.1) mmol/L Chloride 109 H (98-107) mmol/L Carbon Dioxide 20 L (22-30) mmol/L BUN 39 H (9-20) mg/dL Creatinine 1.73 H (0.66-1.25) mg/dL Glucose 190 H (74-99) mg/dL Calcium 10.2 (8.4-10.2) mg/dL Total Bilirubin 0.4 (0.2-1.3) mg/dL AST 30 (17-59) U/L ALT 31 (4-49) U/L Alkaline Phosphatase 70 (38-126) U/L Total Protein 6.9 (6.3-8.2) g/dL Albumin 4.1 (3.5-5.0) g/dL - Imaging CT scan - abdomen: report reviewed, image reviewed CT scan - pelvis: report reviewed, image reviewed Assessment and Plan Assessment: Impression: Gross hematuria with dysuria. Normal urinalysis consistent with inflammation possible urine infection. History of kidney stone disease with recent passage. Left-sided hydronephrosis. Sigmoid diverticulitis with possible colovesical fistula. Diabetes. Her disease. Recommendations: This patient has a somewhat complicated urinary tract history because of the duration as well as self neglected. The patient refused cyst oscopy several months ago by when he had asymptomatic hematuria. The inflamed urine could be due to a urinary tract infection incompletely or improperly treated, colovesical fistula. It could be due to urinary tract cancer. The hydronephrosis could be due to the recent stone passage, scar tissue from previous stone passage, colovesical fistula, malignancy. The patient has been started on ceftriaxone. A culture has been obtained. The culture however may not be of value since he has been on antibiotics. We will see how he responds to the antibiotics. At some point in time in the future he will need cystoscopy. If the culture is positive I prefer to wait until after it has been treated as the inflammation from the infection can obscure other problems. I will follow this patient with you. Time with Patient: Greater than 30
[2019-12-05 20:13] LABS: Glucose,Whole Blood 195 mg/dL (75-99)
[2019-12-05] MEDS: CLOPIDOGREL 75 MG TAB PO SCH (21:27)
[2019-12-05] MEDS: ATORVASTATIN 20 MG TAB PO SCH (21:27)
[2019-12-05] MEDS: INSULIN ASPART (NovoLOG) 100 UNIT/ML VIAL SQ SCH (21:27)
[2019-12-05] MEDS: INSULIN DETEMIR (LEVEMIR) 100 UNIT/ML SYR SQ SCH (21:27)
--- NOTE | 2019-12-05 22:30 | P.HPIM ---
History of Present Illness H&P Date: 12/05/19 Chief Complaint: Hematuria History of presenting complaint: This is a very pleasant [address] Pola Knott. Also follows with duplex trimmer Dr. Shannon Andres. Chronic stable medical conditions include diabetes, chronic kidney disease hypertension, coronary artery disease with a stent about 15 months ago. Patient for about one has been having hematuria especially in the last 2 weeks has been far more problems with sometimes shanice blood. Patient was recently started on antibiotics in the form of doxycycline by Dr. Persaud was patient's urologist. Also having some suprapubic tenderness. Has started feeling dizzy. Sometimes gets bladder spasms. Because the symptoms not getting controlled decided to come to the ER. Dr. Persaud was consulted. Denies cyst oscopy. Has known kidney stones. Review of systems: GEN.: Tired EYES: None HEENT: None NECK: None RESPIRATORY: Occasional short of breath CARDIOVASCULAR: None GASTROINTESTINAL: None GENITOURINARY: [As above MUSCULOSKELETAL: [Joint pains LYMPHATICS: None HEMATOLOGICAL: None PSYCHIATRY: None NEUROLOGICAL: None Past medical history to include: Coronary artery disease stent about 15 months ago, diabetes, hypertension, Social history: Lives alone. Smokes over 30 years stopped in 1990. No alcohol. Family history: Patient is adopted Physical examination: VITAL SIGNS: 98, 96, 16, 132/67, 98% room air GENERAL: [BMI 26.3, sitting up, awake. EYES: Pupils equal. Conjunctiva normal. HEENT: External appearance of nose and ears normal, oral cavity grossly normal. NECK: JVD not raised; masses not palpable. HEART: First and second heart sounds are normal; no edema. LUNGS: Respiratory rate normal; clear to auscultation. ABDOMEN: Soft, minimal suprapubic tenderness, no guarding or rigidity, liver spleen not palpable, no masses palpable. PSYCH: Alert and oriented x3; mood and affect normal. 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 LYMPHATICS: No lymph nodes palpable in the axilla and neck INVESTIGATIONS, reviewed in the clinical context: White count 13.8 hemoglobin 40.7 platelets 300 potassium 4.9 bun 39 creatinine 1.73 Labs on 06/26/2019 showed a bun of 36 creatinine 1.8 Assessment: -Patient been having progressively worsening hematuria the last 2 weeks. Associated bladder spasm. Patient will need a cystoscopy. Has had prior kidney stones. 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 Persaud was consulted. Home medications resumed. Accu-Cheks will be followed. Care was discussed with the patient. Give IV fluids. He'll be sent off for culture. Start the patient on ceftriaxone. Continue with Plavix in view of stent about 15 months ago. Past Medical History Past Medical History: Chest Pain / Angina, Diabetes Mellitus, Hypertension Additional Past Medical History / Comment(s): shortness of breath History of Any Multi-Drug Resistant Organisms: None Reported Past Surgical History: Back Surgery Additional Past Surgical History / Comment(s): hand surgery. back surgery with 4 screws and 2 rods Past Anesthesia/Blood Transfusion Reactions: No Reported Reaction Additional Past Anesthesia/Blood Transfusion Reaction / Comment(s): son allergic to one type of anesthesia Past Psychological History: No Psychological Hx Reported Smoking Status: Never smoker Past Alcohol Use History: None Reported Additional Past Alcohol Use History / Comment(s): quit 1991 smoked 30+ years on and off Past Drug Use History: None Reported - Past Family History Mother Family Medical History: Unable to Obtain Additional Family Medical History / Comment(s): adopted Medications and Allergies Home Medications Medication Instructions Recorded Confirmed Type Ascorbic Acid [Vitamin C] 500 mg PO DAILY 03/31/18 12/05/19 History Cholecalciferol [Vitamin D3] 1,000 unit PO DAILY 03/31/18 12/05/19 History Cyanocobalamin [Vitamin B-12] 500 mcg PO DAILY 03/31/18 12/05/19 History Losartan Potassium 50 mg PO DAILY 03/31/18 12/05/19 History Simvastatin [Zocor] 40 mg PO HS 03/31/18 12/05/19 History Insulin Aspart [NovoLOG] See Protocol SQ TID-W/MEALS 08/01/18 12/05/19 History quiNINE SULFATE 324 mg PO HS 08/01/18 12/05/19 History Insulin Glargine [Lantus] 20 unit SQ HS 10/10/19 12/05/19 History Isosorbide Mononitrate [Isosorbide 30 mg PO DAILY 10/10/19 12/05/19 History Mononitrate ER] Levothyroxine Sodium [Synthroid] 50 mcg PO DAILY 10/10/19 12/05/19 History Clopidogrel [Plavix] 75 mg PO HS 12/05/19 12/05/19 History Doxycycline Hyclate [Vibramycin] 100 mg PO BID 12/05/19 12/05/19 History Allergies Allergy/AdvReac Type Severity Reaction Status Date / Time ciprofloxacin [From Cipro] Allergy Swelling Verified 12/05/19 16:42 propoxyphene [From Darvon] Allergy Hallucinati Verified 12/05/19 16:42 ons Iodinated Contrast Media AdvReac Dyspnea Verified 12/05/19 16:42 [Iodinated Contrast- Oral and IV Dye] Physical Exam Vitals: Vital Signs Temp Pulse Pulse Resp BP BP Pulse Ox 12/05/19 19:20 98.6 F 85 16 168/81 93 L 12/05/19 18:12 83 16 188/87 99 12/05/19 15:56 98.3 F 80 16 149/76 99 12/05/19 14:11 83 16 131/73 12/05/19 13:21 98.0 F 96 16 132/67 98 Intake and Output 12/05/19 12/05/19 12/05/19 06:59 14:59 22:59 Output Total 200 Balance -200 Output: Urine 200 Other: Voiding Method Toilet Weight 76.204 kg 76.204 kg Results CBC & Chem 7: 12/05/19 14:10 12/05/19 14:10 Labs: Abnormal Lab Results - Last 24 Hours (Table) 12/05/19 12/05/19 12/05/19 Range/Units 14:10 14:10 14:10 WBC 13.8 H (3.8-10.6) k/uL Neutrophils # 10.3 H (1.3-7.7) k/uL Chloride 109 H (98-107) mmol/L Carbon Dioxide 20 L (22-30) mmol/L BUN 39 H (9-20) mg/dL Creatinine 1.73 H (0.66-1.25) mg/dL Glucose 190 H (74-99) mg/dL POC Glucose (mg/dL) (75-99) mg/dL Urine Protein 1+ H (Negative) Urine Glucose (UA) Trace H (Negative) Urine Blood Moderate H (Negative) Ur Leukocyte Esterase Large H (Negative) Urine RBC >182 H (0-5) /hpf Urine WBC >182 H (0-5) /hpf Urine WBC Clumps Occasional H (None) /hpf Urine Bacteria Rare H (None) /hpf Hyaline Casts 6 H (0-2) /lpf Urine Mucus Occasional H (None) /hpf 12/05/19 Range/Units 20:12 WBC (3.8-10.6) k/uL Neutrophils # (1.3-7.7) k/uL Chloride (98-107) mmol/L Carbon Dioxide (22-30) mmol/L BUN (9-20) mg/dL Creatinine (0.66-1.25) mg/dL Glucose (74-99) mg/dL POC Glucose (mg/dL) 195 H (75-99) mg/dL Urine Protein (Negative) Urine Glucose (UA) (Negative) Urine Blood (Negative) Ur Leukocyte Esterase (Negative) Urine RBC (0-5) /hpf Urine WBC (0-5) /hpf Urine WBC Clumps (None) /hpf Urine Bacteria (None) /hpf Hyaline Casts (0-2) /lpf Urine Mucus (None) /hpf Thrombosis Risk Factor Assmnt - Choose All That Apply Any of the Below Risk Factors Present?: Yes Each Factor Represents 1 point: Obesity (BMI >25) Other Risk Factors: Yes Each Risk Factor Represents 3 Points: Age 75 years or older Thrombosis Risk Factor Assessment Total Risk Factor Score: 4 Thrombosis Risk Factor Assessment Level: Moderate Risk
[2019-12-05] MEDS: SODIUM CHLORIDE 0.9% 1,000 ML IV SCH (22:50)
[2019-12-05] MEDS: ACETAMINOPHEN TAB 325 MG TAB PO PRN (22:53)
[2019-12-06] MEDS: LEVOTHYROXINE 50 MCG TAB PO SCH (05:48)
[2019-12-06 06:53] LABS: Glucose,Whole Blood 125 mg/dL (75-99)
[2019-12-06] MEDS: INSULIN ASPART (NovoLOG) 100 UNIT/ML VIAL SQ SCH ×3 (06:54→18:21)
[2019-12-06 08:49] LABS: HCT 45.1 % (39.0-53.0); HGB 13.4 gm/dL (13.0-17.5); Hypochromasia Slight; MCH 26.7 pg (25.0-35.0); MCHC 29.8 g/dL (31.0-37.0); MCV 89.9 fL (80.0-100.0); Mean Platelet Volume 7.7; Platelet Count 240 k/uL (150-450); RBC 5.02 m/uL (4.30-5.90); RDW 15.1 % (11.5-15.5); WBC 12.5 k/uL (3.8-10.6)
[2019-12-06] MEDS: CYANOCOBALAMIN 500 MCG TAB PO SCH (08:51)
[2019-12-06] MEDS: LOSARTAN 50 MG TAB PO SCH (08:51)
[2019-12-06] MEDS: ACETAMINOPHEN TAB 325 MG TAB PO PRN (08:51)
[2019-12-06] MEDS: ASCORBIC ACID 500 MG TAB PO SCH (08:51)
[2019-12-06] MEDS: ISOSORBIDE MONONITRATE ER 30 MG TAB.ER.24H PO SCH (08:51)
[2019-12-06 09:00] LABS: Calcium 8.9 mg/dL (8.4-10.2); Potassium 4.7 mmol/L (3.5-5.1)
--- NOTE | 2019-12-06 11:29 | PN ---
PROGRESS NOTE Mr. Sorensen was seen yesterday by me for penile discomfort, urine infection, and hematuria. He has been having this problem for over a month. He was seen by Dr. Rodriguez of medicine and given antibiotics. I do not know whether culture was obtained. He was seen by my partner, Dr. Whitehead, back in February and a cystoscopy was recommended, but the patient declined. The patient's urinalysis showed 182 white, 182 reds, consistent with significant inflammation, possible urine infection. He was brought in the hospital by Medicine and had a urine culture and placed on IV antibiotics. He had a CT scan that identified some left-sided hydronephrosis. The patient did pass a stone in the last 24 hours, however. Also on the CT scan was diverticulitis and a question of a fistula in the dome of the bladder. There was no air in the bladder and he does not describe pneumaturia. This morning he does not feel any better, despite 24 hours of antibiotic. We will see what the urine culture shows. If he continues to have problems, he may need to have cystoscopy sooner rather than later. I will follow this patient with you. MMODL / IJN: [id number] /
[2019-12-06 11:42] LABS: Glucose,Whole Blood 159 mg/dL (75-99)
--- NOTE | 2019-12-06 14:49 | P.GSCN ---
History of Present Illness Consult date: 12/06/19 Reason for Consult: Colovesical fistula History of present illness: Is a 1-year-old male has been hospital for urinary tract infection and dive rticulitis. The patient has had complaints of blood in urine. His recent CAT scans of the possible tracks in the mid sigmoid to the bladder. Patient noted to have diverticulosis. He currently has complaints of suprapubic and left lower quadrant pain. Past Medical History Past Medical History: Chest Pain / Angina, Diabetes Mellitus, Hypertension Additional Past Medical History / Comment(s): shortness of breath History of Any Multi-Drug Resistant Organisms: None Reported Past Surgical History: Back Surgery Additional Past Surgical History / Comment(s): hand surgery. back surgery with 4 screws and 2 rods Past Anesthesia/Blood Transfusion Reactions: No Reported Reaction Additional Past Anesthesia/Blood Transfusion Reaction / Comm: son allergic to one type of anesthesia Past Psychological History: No Psychological Hx Reported Smoking Status: Never smoker Past Alcohol Use History: None Reported Additional Past Alcohol Use History / Comment(s): quit 1990 smoked 30+ years on and off Past Drug Use History: None Reported - Past Family History Mother Family Medical History: Unable to Obtain Additional Family Medical History / Comment(s): adopted Medications and Allergies Home Medications Medication Instructions Recorded Confirmed Type Ascorbic Acid [Vitamin C] 500 mg PO DAILY 03/31/18 12/05/19 History Cholecalciferol [Vitamin D3] 1,000 unit PO DAILY 03/31/18 12/05/19 History Cyanocobalamin [Vitamin B-12] 500 mcg PO DAILY 03/31/18 12/05/19 History Losartan Potassium 50 mg PO DAILY 03/31/18 12/05/19 History Simvastatin [Zocor] 40 mg PO HS 03/31/18 12/05/19 History Insulin Aspart [NovoLOG] See Protocol SQ TID-W/MEALS 08/01/18 12/05/19 History quiNINE SULFATE 324 mg PO HS 08/01/18 12/05/19 History Insulin Glargine [Lantus] 20 unit SQ HS 10/10/19 12/05/19 History Isosorbide Mononitrate [Isosorbide 30 mg PO DAILY 10/10/19 12/05/19 History Mononitrate ER] Levothyroxine Sodium [Synthroid] 50 mcg PO DAILY 10/10/19 12/05/19 History Clopidogrel [Plavix] 75 mg PO HS 12/05/19 12/05/19 History Doxycycline Hyclate [Vibramycin] 100 mg PO BID 12/05/19 12/05/19 History Allergies Allergy/AdvReac Type Severity Reaction Status Date / Time ciprofloxacin [From Cipro] Allergy Swelling Verified 12/05/19 16:42 propoxyphene [From Darvon] Allergy Hallucinati Verified 12/05/19 16:42 ons Iodinated Contrast Media AdvReac Dyspnea Verified 12/05/19 16:42 [Iodinated Contrast- Oral and IV Dye] Surgical - Exam Vital Signs Temp Pulse Resp BP Pulse Ox 98.0 F 96 16 132/67 98 12/05/19 13:21 12/05/19 13:21 12/05/19 13:21 12/05/19 13:21 12/05/19 13:21 - General well developed, well nourished, no distress - Eyes PERRL - ENT normal pinna - Neck no masses - Respiratory normal expansion - Cardiovascular Rhythm: regular - Abdomen Mild left lower quadrant and suprapubic pain Abdomen: soft Results - Labs 12/06/19 08:29 12/06/19 08:29 Abnormal Lab Results - Last 24 Hours (Table) 12/05/19 12/06/19 12/06/19 Range/Units 20:12 06:52 08:29 WBC 12.5 H (3.8-10.6) k/uL MCHC 29.8 L (31.0-37.0) g/dL Chloride (98-107) mmol/L Carbon Dioxide (22-30) mmol/L BUN (9-20) mg/dL Creatinine (0.66-1.25) mg/dL Glucose (74-99) mg/dL POC Glucose (mg/dL) 195 H 125 H (75-99) mg/dL 12/06/19 12/06/19 Range/Units 08:29 11:39 WBC (3.8-10.6) k/uL MCHC (31.0-37.0) g/dL Chloride 111 H (98-107) mmol/L Carbon Dioxide 21 L (22-30) mmol/L BUN 33 H (9-20) mg/dL Creatinine 1.51 H (0.66-1.25) mg/dL Glucose 276 H (74-99) mg/dL POC Glucose (mg/dL) 159 H (75-99) mg/dL Microbiology - Last 24 Hours (Table) 12/05/19 14:10 Urine Culture - Preliminary Urine,Voided Diabetes panel 12/06/19 Range/Units 08:29 Sodium 140 (137-145) mmol/L Potassium 4.7 (3.5-5.1) mmol/L Chloride 111 H (98-107) mmol/L Carbon Dioxide 21 L (22-30) mmol/L BUN 33 H (9-20) mg/dL Creatinine 1.51 H (0.66-1.25) mg/dL Glucose 276 H (74-99) mg/dL Calcium 8.9 (8.4-10.2) mg/dL Calcium panel 12/06/19 Range/Units 08:29 Calcium 8.9 (8.4-10.2) mg/dL Pituitary panel 12/06/19 Range/Units 08:29 Sodium 140 (137-145) mmol/L Potassium 4.7 (3.5-5.1) mmol/L Chloride 111 H (98-107) mmol/L Carbon Dioxide 21 L (22-30) mmol/L BUN 33 H (9-20) mg/dL Creatinine 1.51 H (0.66-1.25) mg/dL Glucose 276 H (74-99) mg/dL Calcium 8.9 (8.4-10.2) mg/dL Adrenal panel 12/06/19 Range/Units 08:29 Sodium 140 (137-145) mmol/L Potassium 4.7 (3.5-5.1) mmol/L Chloride 111 H (98-107) mmol/L Carbon Dioxide 21 L (22-30) mmol/L BUN 33 H (9-20) mg/dL Creatinine 1.51 H (0.66-1.25) mg/dL Glucose 276 H (74-99) mg/dL Calcium 8.9 (8.4-10.2) mg/dL Assessment and Plan Assessment: Hematuria Type T lysis of possible colonoscopy fistula Patient's we treated IV antibiotics currently. He is undergone recent colonoscopy this will be reviewed. We will follow with you.
[2019-12-06 16:34] LABS: Glucose,Whole Blood 159 mg/dL (75-99)
[2019-12-06] MEDS: SODIUM CHLORIDE 0.9% 1,000 ML IV SCH ×2 (18:55→18:56)
[2019-12-06 20:48] LABS: Glucose,Whole Blood 194 mg/dL (75-99)
[2019-12-06] MEDS ORDERED: CLOPIDOGREL 75 MG TAB ONE (21:00)
[2019-12-06] MEDS ORDERED: INSULIN ASPART (NovoLOG) 100 UNIT/ML VIAL SQ ONE ×2 (21:00)
[2019-12-06] MEDS ORDERED: ATORVASTATIN 20 MG TAB ONE (21:00)
[2019-12-06] MEDS ORDERED: ACETAMINOPHEN TAB 325 MG TAB ONE (21:00)
[2019-12-06] MEDS ORDERED: INSULIN DETEMIR (LEVEMIR) 100 UNIT/ML SYR SQ ONE (21:00)
--- NOTE | 2019-12-06 22:28 | P.PN ---
Progress Note - Text Progress Note Date: 12/06/19 Chief Complaint: Hematuria History of presenting complaint: This is a very pleasant [address] Pola Knott. 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 Shannon Andres. Chronic stable medical conditions include diabetes, chronic kidney disease hypertension, coronary artery disease with a stent about 15 months ago. Patient for about one has been having hematuria especially in the last 2 weeks has been far more problems with sometimes shanice blood. Patient was recently started on antibiotics in the form of doxycycline by Dr. Persaud was patient's urologist. Also having some suprapubic tenderness. Has started feeling dizzy. Sometimes gets bladder spasms. Because the symptoms not getting controlled decided to come to the ER. Dr. Persaud was consulted. Denies cystoscopy. Has known kidney stones. Computed tomography scan suggestive of questionable fistula from the bladder to:. And question about diverticulitis. Patient also been having some diarrhea for quite a few days she states. No blood. Patient started and IV ceftriaxone. Today-making urine. No shanice blood. Still having some diarrhea. Tired. Some lower abdominal tenderness Review of systems: Was done for constitutional, cardiovascular, GI, pulmonary. relevant finding as above Active Medications Acetaminophen (Tylenol Tab) 650 mg PO Q6HR PRN PRN Reason: Mild Pain or Fever > 100.5 Last Admin: 12/06/19 08:51 Dose: 650 mg Documented by: Ascorbic Acid (Vitamin C) 500 mg PO DAILY [facility] Last Admin: 12/06/19 08:51 Dose: 500 mg Documented by: Atorvastatin Calcium (Lipitor) 20 mg PO [facility] Last Admin: 12/05/19 21:27 Dose: 20 mg Documented by: Clopidogrel Bisulfate (Plavix) 75 mg PO [facility] Last Admin: 12/05/19 21:27 Dose: 75 mg Documented by: Cyanocobalamin (Vitamin B-12) 500 mcg PO DAILY [facility] Last Admin: 12/06/19 08:51 Dose: 500 mcg Documented by: Ceftriaxone Sodium 1 gm/ (Sodium Chloride) 50 mls @ 100 mls/hr IVPB Q24H [facility] Last Admin: 12/06/19 15:34 Dose: 100 mls/hr Documented by: Sodium Chloride (Saline 0.9%) 1,000 mls @ 100 mls/hr IV .Q10H [facility] Last Admin: 12/06/19 18:56 Dose: Not Given Documented by: Insulin Aspart (Novolog) 0 unit SQ [facility]; Protocol Last Admin: 12/06/19 18:21 Dose: Not Given Documented by: Insulin Detemir (Levemir) 20 unit SQ [facility] Last Admin: 12/05/19 21:27 Dose: 20 unit Documented by: Isosorbide Mononitrate (Imdur) 30 mg PO DAILY [facility] Last Admin: 12/06/19 08:51 Dose: 30 mg Documented by: Levothyroxine Sodium (Synthroid) 50 mcg PO 0630 [facility] Last Admin: 12/06/19 05:48 Dose: 50 mcg Documented by: Losartan Potassium (Cozaar) 50 mg PO DAILY [facility] Last Admin: 12/06/19 08:51 Dose: 50 mg Documented by: Naloxone HCl (Narcan) 0.2 mg IV Q2M PRN PRN Reason: Opioid Reversal Ondansetron HCl (Zofran) 4 mg IVP Q8HR PRN PRN Reason: Nausea And Vomiting Quinine Sulfate (Qualaquin) 324 mg PO [facility] Last Admin: 12/05/19 21:26 Dose: 324 mg Documented by: Physical examination: VITAL SIGNS: 97.9, 80, 18, 156/70, 99% room air GENERAL: Laying in bed, slightly tired EYES: Pupils equal. Conjunctiva normal. HEENT: External appearance of nose and ears normal, oral cavity grossly normal. NECK: JVD not raised; masses not palpable. HEART: First and second heart sounds are normal; no edema. LUNGS: Respiratory rate normal; clear to auscultation. ABDOMEN: Soft, minimal lower abdominal tenderness, no guarding or rigidity, liver spleen not palpable, no masses palpable. PSYCH: Alert and oriented x3; mood and affect normal. 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 Possible subcu tract extending from the mid sigmoid to the bladder dome. Fistula possible. [id number] left-sided hydronephrosis with no obstructive stone. Bilateral nonobstructive renal calculi. Urine culture unremarkable Assessment: -Patient been having progressively worsening hematuria the last 2 weeks. Associated bladder spasm. Patient will need a cystoscopy. -Questionable diverticulitis and/or questionable fistula from the colon to the bladder. -Left-sided hydronephrosis. -Bilateral nephrolithiasis -Coronary artery disease with stent about 15 months ago -Diabetes mellitus type 2 -Essential hypertension -Hypothyroid -Chronic kidney disease stage III from bilateral kidney stones -Hypertensive kidney disease Plan: Will change patient from IV ceftriaxone to IV cefepime. Also add Flagyl. Patient will need cystoscopy. Follow labs.
[2019-12-07] MEDS ORDERED: metroNIDAZOLE-NS PMX 500 MG/100 ML BAG ONE (00:30)
[2019-12-07] MEDS ORDERED: LEVOTHYROXINE 50 MCG TAB ONE (02:00)
[2019-12-07] MEDS ORDERED: ACETAMINOPHEN TAB 325 MG TAB ONE (02:00)
[2019-12-07] MEDS ORDERED: SODIUM CHLORIDE 0.9% 1,000 ML BAG ONE (02:00)
--- NOTE | 2019-12-07 07:23 | P.PN ---
Subjective Progress Note Date: 12/07/19 the patient is in the hospital with hematuria and bladder pain. His urine culture grew 10-50,000 genital andrew. He had been on antibiotics by Dr. Chacon. He is still having discomfort. I will thus set him up for cystoscopy and possible bladder biopsies for tomorrow. This has been discussed and understood by the patient. Objective - Vital Signs Vital signs: Vital Signs Temp 98.1 F 12/07/19 01:57 Pulse 75 12/07/19 01:57 Resp 18 12/07/19 01:57 BP 170/78 12/07/19 01:57 Pulse Ox 97 12/07/19 01:57 Intake & Output 12/06/19 12/07/19 12/07/19 18:59 06:59 18:59 Output Total 400 Balance -400 Output: Urine 400 Other: Voiding Method Toilet Toilet # Voids 4 - Labs CBC & Chem 7: 12/06/19 08:29 12/06/19 08:29 Labs: Abnormal Lab Results - Last 24 Hours (Table) 12/06/19 12/06/19 12/06/19 Range/Units 08:29 08:29 11:39 WBC 12.5 H (3.8-10.6) k/uL MCHC 29.8 L (31.0-37.0) g/dL Chloride 111 H (98-107) mmol/L Carbon Dioxide 21 L (22-30) mmol/L BUN 33 H (9-20) mg/dL Creatinine 1.51 H (0.66-1.25) mg/dL Glucose 276 H (74-99) mg/dL POC Glucose (mg/dL) 159 H (75-99) mg/dL 12/06/19 12/06/19 Range/Units 16:32 20:47 WBC (3.8-10.6) k/uL MCHC (31.0-37.0) g/dL Chloride (98-107) mmol/L Carbon Dioxide (22-30) mmol/L BUN (9-20) mg/dL Creatinine (0.66-1.25) mg/dL Glucose (74-99) mg/dL POC Glucose (mg/dL) 159 H 194 H (75-99) mg/dL Microbiology - Last 24 Hours (Table) 12/05/19 14:10 Urine Culture - Final Urine,Voided
[2019-12-07 07:26] LABS: Glucose,Whole Blood 133 mg/dL (75-99)
[2019-12-07 07:59] LABS: Albumin 3.9 g/dL (3.5-5.0); Calcium 9.2 mg/dL (8.4-10.2); Potassium 4.6 mmol/L (3.5-5.1); Total Bilirubin 0.5 mg/dL (0.2-1.3); Total Protein 6.8 g/dL (6.3-8.2)
[2019-12-07] MEDS: CLOPIDOGREL 75 MG TAB PO SCH ×2 (08:09→20:37)
[2019-12-07] MEDS: ATORVASTATIN 20 MG TAB PO SCH ×2 (08:09→20:37)
[2019-12-07] MEDS: INSULIN ASPART (NovoLOG) 100 UNIT/ML VIAL SQ SCH ×5 (08:10→20:39)
[2019-12-07] MEDS: INSULIN DETEMIR (LEVEMIR) 100 UNIT/ML SYR SQ SCH ×2 (08:11→20:42)
[2019-12-07] MEDS: SODIUM CHLORIDE 0.9% 1,000 ML IV SCH ×2 (08:11→16:03)
[2019-12-07] MEDS: metroNIDAZOLE-NS PMX 500 MG in SALINE 1 100ML.BAG IVPB SCH ×3 (08:12→15:06)
[2019-12-07] MEDS: CEFEPIME 1 GM in SODIUM CHLORIDE 0.9% 50 ML IVPB SCH ×2 (08:12→12:25)
[2019-12-07] MEDS: LEVOTHYROXINE 50 MCG TAB PO SCH (08:17)
[2019-12-07] MEDS: ASCORBIC ACID 500 MG TAB PO SCH (08:22)
[2019-12-07] MEDS: ISOSORBIDE MONONITRATE ER 30 MG TAB.ER.24H PO SCH (08:22)
[2019-12-07] MEDS: LOSARTAN 50 MG TAB PO SCH (08:22)
[2019-12-07] MEDS: CYANOCOBALAMIN 500 MCG TAB PO SCH (08:22)
[2019-12-07] MEDS: ACETAMINOPHEN TAB 325 MG TAB PO PRN ×3 (08:23→20:47)
[2019-12-07 11:58] LABS: Glucose,Whole Blood 138 mg/dL (75-99)
--- NOTE | 2019-12-07 12:00 | P.PN ---
Progress Note - Text Progress Note Date: 12/07/19 Patient still complains of left-sided abdominal pain and suprapubic pain. Apparently he is scheduled for cystoscopy today. On exam vessels are stable. Abdomen is soft. There is tenderness left lower quadrant and superior pubic area. Diverticulitis with possible colonoscope initial. Patient will undergo cystoscopy today.
[2019-12-07 17:21] LABS: Glucose,Whole Blood 188 mg/dL (75-99)
--- NOTE | 2019-12-07 18:12 | P.PN ---
Progress Note - Text Progress Note Date: 12/07/19 Chief Complaint: Hematuria History of presenting complaint: This is a very pleasant [address] Pola Knott. Also follows with brass finisher Dr. Shannon Andres. Chronic stable medical conditions include diabetes, chronic kidney disease hypertension, coronary artery disease with a stent about 15 months ago. Patient for about one has been having hematuria especially in the last 2 weeks has been far more problems with sometimes shanice blood. Patient was recently started on antibiotics in the form of doxycycline by Dr. Persaud was patient's urologist. Also having some suprapubic tenderness. Has started feeling dizzy. Sometimes gets bladder spasms. Because the symptoms not getting controlled decided to come to the ER. Dr. Persaud was consulted. Denies cystoscopy. Has known kidney stones. Computed tomography scan suggestive of questionable fistula from the bladder to:. And question about diverticulitis. Patient also been having some diarrhea for quite a few days she states. No blood. Patient started and IV ceftriaxone. Antibiotics switched to cefepime and Flagyl. Today-making urine. No further hematuria. Diarrhea still present though better. On antibiotics. Review of systems: Was done for constitutional, cardiovascular, GI, pulmonary. relevant finding as above Active Medications Acetaminophen (Tylenol Tab) 650 mg PO Q6HR PRN PRN Reason: Mild Pain or Fever > 100.5 Last Admin: 12/07/19 15:06 Dose: 650 mg Documented by: Ascorbic Acid (Vitamin C) 500 mg PO DAILY [facility] Last Admin: 12/07/19 08:22 Dose: 500 mg Documented by: Atorvastatin Calcium (Lipitor) 20 mg PO [facility] Last Admin: 12/07/19 08:09 Dose: Not Given Documented by: Clopidogrel Bisulfate (Plavix) 75 mg PO [facility] Last Admin: 12/07/19 08:09 Dose: Not Given Documented by: Cyanocobalamin (Vitamin B-12) 500 mcg PO DAILY [facility] Last Admin: 12/07/19 08:22 Dose: 500 mcg Documented by: Sodium Chloride (Saline 0.9%) 1,000 mls @ 100 mls/hr IV .Q10H [facility] Last Admin: 12/07/19 16:03 Dose: Not Given Documented by: Cefepime HCl 1 gm/ Sodium (Chloride) 50 mls @ 100 mls/hr IVPB Q12H [facility] Last Admin: 12/07/19 12:25 Dose: 100 mls/hr Documented by: Metronidazole 500 mg/ IV (Solution) 100 mls @ 100 mls/hr IVPB Q8HR [facility] Last Admin: 12/07/19 15:06 Dose: 100 mls/hr Documented by: Insulin Aspart (Novolog) 0 unit SQ [facility]; Protocol Last Admin: 12/07/19 17:40 Dose: 2 unit Documented by: Insulin Detemir (Levemir) 20 unit SQ [facility] Last Admin: 12/07/19 08:11 Dose: Not Given Documented by: Isosorbide Mononitrate (Imdur) 30 mg PO DAILY [facility] Last Admin: 12/07/19 08:22 Dose: 30 mg Documented by: Levothyroxine Sodium (Synthroid) 50 mcg PO 629 [facility] Last Admin: 12/07/19 08:17 Dose: Not Given Documented by: Losartan Potassium (Cozaar) 50 mg PO DAILY [facility] Last Admin: 12/07/19 08:22 Dose: 50 mg Documented by: Naloxone HCl (Narcan) 0.2 mg IV Q2M PRN PRN Reason: Opioid Reversal Ondansetron HCl (Zofran) 4 mg IVP Q8HR PRN PRN Reason: Nausea And Vomiting Quinine Sulfate (Qualaquin) 324 mg PO [facility] Last Admin: 12/07/19 08:11 Dose: Not Given Documented by: Physical examination: VITAL SIGNS: 98.3, 76, 16, 171/83, 97% room air GENERAL: Laying in bed, awake EYES: Pupils equal. Conjunctiva normal. HEENT: External appearance of nose and ears normal, oral cavity grossly normal. NECK: JVD not raised; masses not palpable. HEART: First and second heart sounds are normal; no edema. LUNGS: Respiratory rate normal; clear to auscultation. ABDOMEN: Soft, minimal lower abdominal tenderness, no guarding or rigidity, liver spleen not palpable, no masses palpable. PSYCH: Alert and oriented x3; mood and affect normal. 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 10/30/2027 creatinine 1.44 pro calcitonin 0.1 once Previous testing White count 13.8 hemoglobin 40.7 platelets 300 potassium 4.9 bun 39 creatinine 1.73 Labs on 06/26/2019 showed a bun of 36 creatinine 1.8 Computed tomography scan of the abdomen-sigmoid diverticulosis with some mild fat stranding. Possible subcu tract extending from the mid sigmoid to the bladder dome. Fistula possible. [id number] left-sided hydronephrosis with no obstructive stone. Bilateral nonobstructive renal calculi. Urine culture unremarkable Assessment: -Patient been having progressively worsening hematuria the last 2 weeks. Associated bladder spasm. Patient will need a cystoscopy. -Urine looking more clear -Questionable diverticulitis and/or questionable fistula from the colon to the bladder. -Left-sided hydronephrosis. -Bilateral nephrolithiasis -Coronary artery disease with stent about 15 months ago -Diabetes mellitus type 2 -Essential hypertension -Hypothyroid -Chronic kidney disease stage III from bilateral kidney stones -Hypertensive kidney disease Plan: -IV cefepime. And IV Flagyl. Pending cystoscopy tomorrow. Repeat labs in the morning. Patient also being followed by Dr. Feliberto Andres from GI. As an outpatient and will be be consulted.
[2019-12-07 20:29] LABS: Glucose,Whole Blood 147 mg/dL (75-99)
[2019-12-08] MEDS: CEFEPIME 1 GM in SODIUM CHLORIDE 0.9% 50 ML IVPB SCH ×3 (00:01→22:58)
[2019-12-08] MEDS: metroNIDAZOLE-NS PMX 500 MG in SALINE 1 100ML.BAG IVPB SCH ×3 (01:34→19:48)
[2019-12-08] MEDS: ACETAMINOPHEN TAB 325 MG TAB PO PRN ×3 (02:48→19:47)
[2019-12-08] MEDS: SODIUM CHLORIDE 0.9% 1,000 ML IV SCH ×3 (02:49→23:00)
[2019-12-08] MEDS: LEVOTHYROXINE 50 MCG TAB PO SCH (05:51)
[2019-12-08 07:19] LABS: Glucose,Whole Blood 129 mg/dL (75-99)
[2019-12-08] MEDS: INSULIN ASPART (NovoLOG) 100 UNIT/ML VIAL SQ SCH ×4 (07:25→23:00)
[2019-12-08] MEDS: ONDANSETRON 4 MG/2 ML VIAL IVP PRN ×2 (08:06→22:53)
[2019-12-08 08:07] LABS: HCT 44.8 % (39.0-53.0); HGB 13.5 gm/dL (13.0-17.5); Hypochromasia Slight; MCH 26.9 pg (25.0-35.0); MCHC 30.2 g/dL (31.0-37.0); MCV 89.1 fL (80.0-100.0); Mean Platelet Volume 7.7; Platelet Count 239 k/uL (150-450); RBC 5.03 m/uL (4.30-5.90); RDW 14.9 % (11.5-15.5); WBC 12.7 k/uL (3.8-10.6)
[2019-12-08 08:24] LABS: Albumin 3.9 g/dL (3.5-5.0); Calcium 9.1 mg/dL (8.4-10.2); Potassium 4.5 mmol/L (3.5-5.1); Total Bilirubin 0.6 mg/dL (0.2-1.3); Total Protein 6.7 g/dL (6.3-8.2)
[2019-12-08] MEDS: ASCORBIC ACID 500 MG TAB PO SCH (10:41)
[2019-12-08] MEDS: CYANOCOBALAMIN 500 MCG TAB PO SCH (10:41)
[2019-12-08 11:50] LABS: Glucose,Whole Blood 122 mg/dL (75-99)
[2019-12-08] MEDS: ISOSORBIDE MONONITRATE ER 30 MG TAB.ER.24H PO SCH (11:54)
[2019-12-08] MEDS: LOSARTAN 50 MG TAB PO SCH (11:54)
--- NOTE | 2019-12-08 13:46 | P.PN ---
Progress Note - Text Progress Note Date: 12/08/19 The patient's lungs complaints of significant left-sided and suprapubic abdominal pain. He is scheduled for cystoscopy today. On exam her lesser stable. Abdomen soft. There is tenderness on the left side. 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 Patient will be evaluated by cystoscopy today. We will follow with you.
[2019-12-08 14:11] LABS: Glucose,Whole Blood 102 mg/dL (75-99)
[2019-12-08] MEDS ORDERED: IV FLUID CONTINUATION 1,000 ML IV ONE ×2 (14:14)
[2019-12-08] MEDS ORDERED: PROPOFOL 10 MG/ML 20 ML VIAL IV ONE (14:21)
[2019-12-08] MEDS ORDERED: fentaNYL (PF) 50 MCG/ML 2 ML AMP ONE (14:21)
[2019-12-08] MEDS ORDERED: MIDAZOLAM 2 MG/2 ML VIAL ONE (14:21)
--- NOTE | 2019-12-08 15:08 | P.OP ---
Date of Procedure: 12/08/19 Preoperative Diagnosis: Hemorrhagic cystitis Postoperative Diagnosis: Same rule out carcinoma in situ Procedure(s) Performed: Cystoscopy, evacuation of clot, biopsy of bladder, urine cytology Anesthesia: ARACELY ROSS Pathology: other (Bladder biopsy urine cytology) Condition: stable Disposition: PACU Indications for Procedure: The patient is 79. He has had persistent lower urinary tract symptoms. He came in the hospital with inflamed and infected looking urine. The urine culture was nonspecific. He had a computed tomography scan showing a possible fistula however he had no symptoms. He continues with pain. He comes for cystoscopy and bladder biopsy Description of Procedure: Patient brought to the operating suite. He is given IV sedation. He's placed lithotomy position with sterile prep and drape. Cystoscopy Foroblique lens and 22-Citizen [place] sheath identifies normal urethra. The prostate is inflamed. The bladder is severely inflamed. I irrigate several times and evacuated some clot. It is very difficult to see. I asked anesthesia placed the patient under general anesthesia and they did. I reinspected the bladder. There is diffuse inflammation especially over the floor the bladder. There is a mucosal tear in the posterior bladder wall. All is inflamed. I did some bladder biopsies and then cauterized. Because of the mucosal tear I'll place a Landin catheter. A Landin catheters placed and irrigated thoroughly. Impression diffuse hemorrhagic cystitis of indeterminate etiology. Pending bladder disease and cytology as a further recommendation.
[2019-12-08] MEDS: HYDROmorphone 1 MG/ML 1 ML SYRINGE IVP ONE ×4 (15:24→15:45)
[2019-12-08] MEDS ORDERED: diphenhydrAMINE 50 MG/ML 1 ML VIAL IVP ONE (15:32)
[2019-12-08 15:35] LABS: Glucose,Whole Blood 106 mg/dL (75-99)
[2019-12-08] MEDS: fentaNYL (PF) 50 MCG/ML 2 ML AMP IVP ONE ×2 (15:56→16:10)
[2019-12-08 17:08] LABS: Glucose,Whole Blood 124 mg/dL (75-99)
[2019-12-08] MEDS: OXYBUTYNIN CHLORIDE 5 MG TAB PO SCH (19:47)
[2019-12-08 20:24] LABS: Glucose,Whole Blood 136 mg/dL (75-99)
[2019-12-08 22:51] LABS: Basophils % (A) 0 %; Eosinophils # (A) 0.1 k/uL (0-0.7); Eosinophils % (A) 1 %; HCT 40.1 % (39.0-53.0); HGB 11.9 gm/dL (13.0-17.5); Hypochromasia Moderate; Lymphocytes % (A) 6 %; MCH 26.9 pg (25.0-35.0); MCHC 29.8 g/dL (31.0-37.0); MCV 90.2 fL (80.0-100.0); Mean Platelet Volume 7.8; Monocytes # (A) 0.9 k/uL (0-1.0); Monocytes % (A) 6 %; Neutrophils # (A) 13.6 k/uL (1.3-7.7); Neutrophils % (A) 84 %; Platelet Count 218 k/uL (150-450); RBC 4.45 m/uL (4.30-5.90); RDW 15.2 % (11.5-15.5); WBC 16.1 k/uL (3.8-10.6)
--- NOTE | 2019-12-08 22:51 | P.PN ---
Progress Note - Text Progress Note Date: 12/08/19 Chief Complaint: Hematuria History of presenting complaint: This is a very pleasant [address] Pola Knott. Also follows with production machine computer operator Dr. Shannon Andres. Chronic stable medical conditions include diabetes, chronic kidney disease hypertension, coronary artery disease with a stent about 15 months ago. Patient for about one has been having hematuria especially in the last 2 weeks has been far more problems with sometimes shanice blood. Patient was recently started on antibiotics in the form of doxycycline by Dr. Persaud was patient's urologist. Also having some suprapubic tenderness. Has started feeling dizzy. Sometimes gets bladder spasms. Because the symptoms not getting controlled decided to come to the ER. Dr. Persaud was consulted. Denies cystoscopy. Has known kidney stones. Computed tomography scan suggestive of questionable fistula from the bladder to:. And question about diverticulitis. Patient also been having some diarrhea for quite a few days she states. No blood. Patient started and IV ceftriaxone. Antibiotics switched to cefepime and Flagyl. Today-so the patient this morning. Sitting up. No shanice hematuria. Awaiting cystoscopy. Review of systems: Was done for constitutional, cardiovascular, GI, pulmonary. relevant finding as above Active Medications Acetaminophen (Tylenol Tab) 650 mg PO Q6HR PRN PRN Reason: Mild Pain or Fever > 100.5 Last Admin: 12/08/19 19:47 Dose: 650 mg Documented by: Hydrocodone Bitart/Acetaminophen ([place] 5-325) 1 each PO Q6HR PRN PRN Reason: Pain Ascorbic Acid (Vitamin C) 500 mg PO DAILY [facility] Last Admin: 12/08/19 10:41 Dose: Not Given Documented by: Atorvastatin Calcium (Lipitor) 20 mg PO [facility] Last Admin: 12/07/19 20:37 Dose: 20 mg Documented by: Belladonna Alkaloids/Opium (B&O Suppository) 1 each RECTAL TID PRN PRN Reason: Pain Clopidogrel Bisulfate (Plavix) 75 mg PO [facility] Last Admin: 12/07/19 20:37 Dose: 75 mg Documented by: Cyanocobalamin (Vitamin B-12) 500 mcg PO DAILY [facility] Last Admin: 12/08/19 10:41 Dose: Not Given Documented by: Sodium Chloride (Saline 0.9%) 1,000 mls @ 100 mls/hr IV .Q10H [facility] Last Admin: 12/08/19 13:51 Dose: 100 mls/hr Documented by: Cefepime HCl 1 gm/ Sodium (Chloride) 50 mls @ 100 mls/hr IVPB Q12H [facility] Last Admin: 12/08/19 14:07 Dose: Not Given Documented by: Metronidazole 500 mg/ IV (Solution) 100 mls @ 100 mls/hr IVPB Q8HR [facility] Last Admin: 12/08/19 19:48 Dose: 100 mls/hr Documented by: Insulin Aspart (Novolog) 0 unit SQ [facility]; Protocol Last Admin: 12/08/19 17:35 Dose: Not Given Documented by: Insulin Detemir (Levemir) 20 unit SQ [facility] Last Admin: 12/07/19 20:42 Dose: 20 unit Documented by: Isosorbide Mononitrate (Imdur) 30 mg PO DAILY [facility] Last Admin: 12/08/19 11:54 Dose: 30 mg Documented by: Levothyroxine Sodium (Synthroid) 50 mcg PO 0630 [facility] Last Admin: 12/08/19 05:51 Dose: 50 mcg Documented by: Losartan Potassium (Cozaar) 50 mg PO DAILY [facility] Last Admin: 12/08/19 11:54 Dose: 50 mg Documented by: Morphine Sulfate (Morphine Sulfate (Inj)) 2 mg IVP Q4H PRN PRN Reason: Pain/Discomfort Naloxone HCl (Narcan) 0.2 mg IV Q2M PRN PRN Reason: Opioid Reversal Ondansetron HCl (Zofran) 4 mg IVP Q8HR PRN PRN Reason: Nausea And Vomiting Last Admin: 12/08/19 08:06 Dose: 4 mg Documented by: Oxybutynin Chloride (Ditropan) 5 mg PO TID [facility] Last Admin: 12/08/19 19:47 Dose: 5 mg Documented by: Quinine Sulfate (Qualaquin) 324 mg PO [facility] Last Admin: 12/07/19 20:37 Dose: 324 mg Documented by: Physical examination: VITAL SIGNS: 97.9, 76, 14, 1:30 was 73, 98% room air GENERAL: Laying in bed, awake EYES: Pupils equal. Conjunctiva normal. HEENT: External appearance of nose and ears normal, oral cavity grossly normal. NECK: JVD not raised; masses not palpable. HEART: First and second heart sounds are normal; no edema. LUNGS: Respiratory rate normal; clear to auscultation. ABDOMEN: Soft, minimal lower abdominal tenderness, no guarding or rigidity, liver spleen not palpable, no masses palpable. PSYCH: Alert and oriented x3; mood and affect normal. 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 Possible subcu tract extending from the mid sigmoid to the bladder dome. Fistula possible. [id number] left-sided hydronephrosis with no obstructive stone. Bilateral nonobstructive renal calculi. Urine culture unremarkable Assessment: -worsening hematuria the last 2 weeks. Associated bladder spasm. Pending cystoscopy this afternoon -Aged UTI and cystitis -Questionable diverticulitis and/or questionable fistula from the colon to the bladder. -Left-sided hydronephrosis. -Bilateral nephrolithiasis -Coronary artery disease with stent about 15 months ago -Diabetes mellitus type 2 -Essential hypertension -Hypothyroid -Chronic kidney disease stage III from bilateral kidney stones -Hypertensive kidney disease Plan: Admitted today patient underwent a cystoscopy. Found to have diffuse hemorrhagic cystitis of indeterminate etiology. Also found to have a mucosal tear in the posterior bladder wall. Landin catheter was placed. Patient to continue on IV cefepime, IV Flagyl, IV fluids. Repeat labs.
[2019-12-08] MEDS: MORPHINE SULFATE 2 MG/ML SYRINGE IVP PRN (22:53)
[2019-12-08] MEDS: ATORVASTATIN 20 MG TAB PO SCH (22:53)
[2019-12-08] MEDS: CLOPIDOGREL 75 MG TAB PO SCH (23:01)
--- NOTE | 2019-12-08 23:01 | CONS ---
CONSULTATION DATE OF DICTATION: 12/08/2019 REASON FOR CONSULTATION: Diarrhea and possible sigmoid diverticulitis. HISTORY OF PRESENT ILLNESS: The patient is an 79-year-old pleasant white male with history of diabetes mellitus, hypertension, hyperlipidemia, chronic kidney disease, who was admitted to the hospital because of hematuria for the last 2 weeks' duration. He has been having blood with clots in the urine. He was recently started on antibiotic for possible UTI and is scheduled for a cystoscopy today. In the meantime, because of intermittent lower abdominal pain and diarrhea he had a CT of the abdomen and pelvis done that showed changes consistent with possible sigmoid diverticulitis. The patient had an EGD and colonoscopy done by me in September of 2019 that showed evidence of sigmoid diverticulosis and a small colon polyp. PAST MEDICAL HISTORY: His past medical history is significant for hypertension, hyperlipidemia, coronary artery disease, status post stent placement 4 months ago, history of diabetes mellitus, hypothyroidism. HOME MEDICATIONS: Plavix, aspirin, Synthroid, Imdur, Lantus, quinine, sulfate, Losartan, Zocor, vitamin C, vitamin D3. ALLERGIES: CIPRO, DIOVAN, IV DYE. SOCIAL HISTORY: No smoking. No alcohol use. PAST SURGICAL HISTORY: Hand surgery, back surgery, EGD, colonoscopy 2 months ago, cardiac cath with angioplasty and stent placement. FAMILY HISTORY: The patient is adopted and hence could not be obtained. REVIEW OF SYSTEMS: CARDIOPULMONARY: No chest pain or shortness of breath. GENITOURINARY: Severe hematuria, as mentioned above. NEUROLOGY: Unremarkable. PSYCHIATRY: Unremarkable. ENT/VISION: Unremarkable. CONSTITUTIONAL: No recent weight loss. No fever, chills, night sweats. ENDOCRINE: Unremarkable. PHYSICAL EXAMINATION: Blood pressure is 132/72, pulse rate 96, temperature 98. HEENT examination unremarkable. Conjunctivae pink. Sclerae anicteric. Oral cavity no lesions. NECK: No JVD or lymph node enlargement. CHEST: Clear to auscultation. HEART: Regular rate and rhythm. ABDOMEN: Soft. Bowel sounds are positive. No organomegaly. There is tenderness in the suprapubic area, minimal tenderness in the left lower quadrant area. EXTREMITIES: No pedal edema. SKIN: No rashes. NEUROLOGIC: Alert and oriented x3. No focal deficits. LABS: WBC 12.7, hemoglobin 13.5, platelets normal. BUN and creatinine were 39 and 1.73, respectively. Today creatinine is 1.49. ALT, AST, T-bilirubin and alkaline phosphatase are all within normal limits. IMPRESSION: 1. Hematuria. Urology is following the patient closely. He is scheduled for a cystoscopy today. 2. Left-sided abdominal pain with occasional left lower quadrant and suprapubic pain. CT of the abdomen at the time of admission to the hospital showed some sigmoid diverticulitis and fat stranding in this area suggestive of acute sigmoid diverticulitis. He had a colonoscopy by me 2 months ago that showed sigmoid diverticulosis. The patient has been on broad-spectrum antibiotics, on Levaquin and Flagyl, day number 2, clinically improving. 3. History of diabetes mellitus. 4. History of hypertension. 5. Coronary artery disease, status post angioplasty with stent placement 4 months ago. RECOMMENDATIONS: 1. Continue broad-spectrum antibiotics with Flagyl and Cipro. 2. Await cystoscopy results. 3. Monitor CBC on a daily basis. 4. Advance diet as tolerated. 5. Will follow with you closely. Thank you for this consultation. MMODL / IJN: [id number] /
[2019-12-08] MEDS: INSULIN DETEMIR (LEVEMIR) 100 UNIT/ML SYR SQ SCH (23:03)
[2019-12-09] MEDS: SODIUM CHLORIDE 0.9% 1,000 ML IV SCH ×3 (04:32→23:26)
[2019-12-09] MEDS: OXYBUTYNIN CHLORIDE 5 MG TAB PO SCH ×4 (04:32→20:57)
[2019-12-09] MEDS: metroNIDAZOLE-NS PMX 500 MG in SALINE 1 100ML.BAG IVPB SCH ×3 (04:32→16:11)
[2019-12-09] MEDS: MORPHINE SULFATE 2 MG/ML SYRINGE IVP PRN ×3 (04:33→23:24)
[2019-12-09] MEDS: LEVOTHYROXINE 50 MCG TAB PO SCH (05:53)
--- NOTE | 2019-12-09 07:18 | P.PN ---
Subjective Progress Note Date: 12/09/19 The patient is in his first postoperative day from cystoscopy and bladder biopsies. The patient has had a moderate amount of hematuria is expected. His bladder was extensively inflamed and there was a mucosal tear in the posterior bladder wall whether this is due to to a hemorrhagic cystitis or carcinoma in situ will be determined based on cytology and biopsy. The patient is stable feels okay. He is getting bladder irrigation. The urine is pink. Objective - Vital Signs Vital signs: Vital Signs Temp 97.9 F 12/09/19 01:55 Pulse 81 12/09/19 01:55 Resp 16 12/09/19 01:55 BP 109/66 12/09/19 01:55 Pulse Ox 97 12/09/19 01:55 Intake & Output 12/08/19 12/09/19 12/09/19 18:59 06:59 18:59 Intake Total 650 350 Output Total 10 2400 Balance 640 -2050 Intake: IV 650 Oral 350 Output: Urine 2400 Estimated Blood Loss 10 Other: Voiding Method Toilet Indwelling Catheter Urinal # Voids 1 - Labs CBC & Chem 7: 12/08/19 22:40 12/08/19 07:38 Labs: Abnormal Lab Results - Last 24 Hours (Table) 12/08/19 12/08/19 12/08/19 Range/Units 07:18 07:38 07:38 WBC 12.7 H (3.8-10.6) k/uL Hgb (13.0-17.5) gm/dL MCHC 30.2 L (31.0-37.0) g/dL Neutrophils # (1.3-7.7) k/uL Chloride 112 H (98-107) mmol/L Carbon Dioxide 19 L (22-30) mmol/L BUN 27 H (9-20) mg/dL Creatinine 1.49 H (0.66-1.25) mg/dL Glucose 123 H (74-99) mg/dL POC Glucose (mg/dL) 129 H (75-99) mg/dL 12/08/19 12/08/19 12/08/19 Range/Units 11:48 14:09 15:34 WBC (3.8-10.6) k/uL Hgb (13.0-17.5) gm/dL MCHC (31.0-37.0) g/dL Neutrophils # (1.3-7.7) k/uL Chloride (98-107) mmol/L Carbon Dioxide (22-30) mmol/L BUN (9-20) mg/dL Creatinine (0.66-1.25) mg/dL Glucose (74-99) mg/dL POC Glucose (mg/dL) 122 H 102 H 106 H (75-99) mg/dL 12/08/19 12/08/19 12/08/19 Range/Units 17:03 20:23 22:40 WBC 16.1 H (3.8-10.6) k/uL Hgb 11.9 L (13.0-17.5) gm/dL MCHC 29.8 L (31.0-37.0) g/dL Neutrophils # 13.6 H (1.3-7.7) k/uL Chloride (98-107) mmol/L Carbon Dioxide (22-30) mmol/L BUN (9-20) mg/dL Creatinine (0.66-1.25) mg/dL Glucose (74-99) mg/dL POC Glucose (mg/dL) 124 H 136 H (75-99) mg/dL
[2019-12-09 07:24] LABS: Glucose,Whole Blood 112 mg/dL (75-99)
[2019-12-09] MEDS: INSULIN ASPART (NovoLOG) 100 UNIT/ML VIAL SQ SCH ×4 (07:28→20:58)
[2019-12-09 07:33] LABS: Basophils # (A) 0.1 k/uL (0-0.2); Basophils % (A) 0 %; Eosinophils # (A) 0.1 k/uL (0-0.7); Eosinophils % (A) 1 %; HCT 38.5 % (39.0-53.0); HGB 11.6 gm/dL (13.0-17.5); Hypochromasia Moderate; Lymphocytes # (A) 1.5 k/uL (1.0-4.8); Lymphocytes % (A) 11 %; MCH 27.5 pg (25.0-35.0); MCHC 30.2 g/dL (31.0-37.0); MCV 91.2 fL (80.0-100.0); Mean Platelet Volume 7.8; Monocytes # (A) 1.1 k/uL (0-1.0); Monocytes % (A) 8 %; Neutrophils # (A) 10.2 k/uL (1.3-7.7); Neutrophils % (A) 76 %; Platelet Count 202 k/uL (150-450); RBC 4.22 m/uL (4.30-5.90); RDW 15.1 % (11.5-15.5); WBC 13.4 k/uL (3.8-10.6)
[2019-12-09 07:45] LABS: Calcium 7.8 mg/dL (8.4-10.2); Potassium 4.6 mmol/L (3.5-5.1)
[2019-12-09] MEDS: ACETAMINOPHEN TAB 325 MG TAB PO PRN (08:27)
[2019-12-09] MEDS: CYANOCOBALAMIN 500 MCG TAB PO SCH (08:28)
[2019-12-09] MEDS: ISOSORBIDE MONONITRATE ER 30 MG TAB.ER.24H PO SCH (08:28)
[2019-12-09] MEDS: LOSARTAN 50 MG TAB PO SCH (08:28)
[2019-12-09] MEDS: ASCORBIC ACID 500 MG TAB PO SCH (08:28)
[2019-12-09 11:28] LABS: Glucose,Whole Blood 168 mg/dL (75-99)
[2019-12-09] MEDS: CEFEPIME 1 GM in SODIUM CHLORIDE 0.9% 50 ML IVPB SCH ×2 (11:37→23:25)
--- NOTE | 2019-12-09 13:34 | P.PN ---
Subjective Progress Note Date: 12/09/19 Principal diagnosis: Possible colovesical fistula Patient had his cystoscopy performed yesterday. Severe cystitis noted. Biopsies pending. Had hematuria overnight. Objective - Vital Signs Vital signs: Vital Signs Temp 98.0 F 12/09/19 07:00 Pulse 94 12/09/19 07:00 Resp 18 12/09/19 07:00 BP 122/66 12/09/19 07:00 Pulse Ox 96 12/09/19 07:00 Intake & Output 12/08/19 12/09/19 12/09/19 18:59 06:59 18:59 Intake Total 650 350 Output Total 10 2400 200 Balance 640 -2050 -200 Intake: IV 650 Oral 350 Output: Urine 2400 200 Estimated Blood Loss 10 Other: Voiding Method Toilet Indwelling Catheter Indwelling Catheter Urinal # Voids 1 - Exam Abdomen: Soft, nontender, nondistended - Labs CBC & Chem 7: 12/09/19 06:44 12/09/19 06:44 Labs: Abnormal Lab Results - Last 24 Hours (Table) 12/08/19 12/08/19 12/08/19 Range/Units 14:09 15:34 17:03 WBC (3.8-10.6) k/uL RBC (4.30-5.90) m/uL Hgb (13.0-17.5) gm/dL Hct (39.0-53.0) % MCHC (31.0-37.0) g/dL Neutrophils # (1.3-7.7) k/uL Monocytes # (0-1.0) k/uL Chloride (98-107) mmol/L Carbon Dioxide (22-30) mmol/L BUN (9-20) mg/dL Creatinine (0.66-1.25) mg/dL Glucose (74-99) mg/dL POC Glucose (mg/dL) 102 H 106 H 124 H (75-99) mg/dL Calcium (8.4-10.2) mg/dL 12/08/19 12/08/19 12/09/19 Range/Units 20:23 22:40 06:44 WBC 16.1 H 13.4 H (3.8-10.6) k/uL RBC 4.22 L (4.30-5.90) m/uL Hgb 11.9 L 11.6 L (13.0-17.5) gm/dL Hct 38.5 L (39.0-53.0) % MCHC 29.8 L 30.2 L (31.0-37.0) g/dL Neutrophils # 13.6 H 10.2 H (1.3-7.7) k/uL Monocytes # 1.1 H (0-1.0) k/uL Chloride (98-107) mmol/L Carbon Dioxide (22-30) mmol/L BUN (9-20) mg/dL Creatinine (0.66-1.25) mg/dL Glucose (74-99) mg/dL POC Glucose (mg/dL) 136 H (75-99) mg/dL Calcium (8.4-10.2) mg/dL 12/09/19 12/09/19 12/09/19 Range/Units 06:44 07:22 11:26 WBC (3.8-10.6) k/uL RBC (4.30-5.90) m/uL Hgb (13.0-17.5) gm/dL Hct (39.0-53.0) % MCHC (31.0-37.0) g/dL Neutrophils # (1.3-7.7) k/uL Monocytes # (0-1.0) k/uL Chloride 113 H (98-107) mmol/L Carbon Dioxide 21 L (22-30) mmol/L BUN 28 H (9-20) mg/dL Creatinine 1.84 H (0.66-1.25) mg/dL Glucose 107 H (74-99) mg/dL POC Glucose (mg/dL) 112 H 168 H (75-99) mg/dL Calcium 7.8 L (8.4-10.2) mg/dL Assessment and Plan (1) Diverticulitis Narrative/Plan: Patient doing better at this time. Continue Landin catheter. Monitor for heavy bleeding or clots. Await biopsies from cystoscopy. Current Visit: Yes Status: Acute Code(s): K57.92 - DVTRCLI OF INTEST, PART UNSP, W/O PERF OR ABSCESS W/O BLEED SNOMED Code(s): 337579875
[2019-12-09] MEDS: BELLADONNA-OPIUM 16.2-60 MG 1 EACH SUPP RECTAL PRN (15:18)
[2019-12-09 16:27] LABS: Glucose,Whole Blood 125 mg/dL (75-99)
[2019-12-09 20:24] LABS: Glucose,Whole Blood 263 mg/dL (75-99)
[2019-12-09] MEDS: CLOPIDOGREL 75 MG TAB PO SCH (20:57)
[2019-12-09] MEDS: ATORVASTATIN 20 MG TAB PO SCH (20:57)
[2019-12-09] MEDS: INSULIN DETEMIR (LEVEMIR) 100 UNIT/ML SYR SQ SCH (20:58)
--- NOTE | 2019-12-09 21:20 | PN ---
PROGRESS NOTE DATE OF SERVICE: 12/09/2019 Patient is an 79-year-old pleasant white male admitted to hospital with severe hematuria. He underwent a cystoscopy yesterday that showed severe diffuse hemorrhagic cystitis. Biopsies were done which are still pending at the time of this dictation. He had a Landin catheter placed yesterday and is feeling much better today. Abdominal pain has significantly improved. Gastroenterology is following because of acute sigmoid diverticulitis noted on CT scan and presently on broad-spectrum antibiotics. He had some loose bowel movements today that resolved. He had just one soft bowel movement. Abdominal pain has improved. No nausea, vomiting. No fever, chills, night sweats. PHYSICAL EXAMINATION: Appears comfortable, no apparent distress. VITAL SIGNS: Stable. Blood pressure is 132/65, pulse rate 99, temperature 98.6. HEENT is examination unremarkable. Conjunctivae pink. Sclerae anicteric. Oral cavity no lesions. NECK: No JVD or lymph node enlargement. CHEST: Clear to auscultation. HEART: Regular rate and rhythm. ABDOMEN: Soft. Bowel sounds positive. No organomegaly. EXTREMITIES: No pedal edema. SKIN: No rashes. NEURO: He is alert and oriented x3. No focal deficits. LABS: From today hemoglobin 11.8, WBC 13.6. IMPRESSION: 1. Acute sigmoid diverticulitis on broad-spectrum antibiotics. 2. Severe hematuria secondary to acute hemorrhagic cystitis. Urology is following the patient closely. The patient has a Landin catheter in place with still has large amount of blood and clot in the catheter. 3. History of hypertension. 4. History of coronary artery disease on aspirin and Plavix. RECOMMENDATIONS: 1. Continue with broad-spectrum antibiotics. 2. Follow hemoglobin on a daily basis. 3. Advance diet as tolerated. 4. We will continue to follow with you closely. Thank you for this consultation. MMODL / IJN: [id number] /
--- NOTE | 2019-12-09 22:52 | P.PN ---
Progress Note - Text Progress Note Date: 12/09/19 Chief Complaint: Hematuria History of presenting complaint: This is a very pleasant [address] Pola Knott. Also follows with prison keeper Dr. Shannon Andres. Chronic stable medical conditions include diabetes, chronic kidney disease hypertension, coronary artery disease with a stent about 15 months ago. Patient for about one has been having hematuria especially in the last 2 weeks has been far more problems with sometimes shanice blood. Patient was recently started on antibiotics in the form of doxycycline by Dr. Persaud was patient's urologist. Also having some suprapubic tenderness. Has started feeling dizzy. Sometimes gets bladder spasms. Because the symptoms not getting controlled decided to come to the ER. Dr. Persaud was consulted. Denies cystoscopy. Has known kidney stones. Computed tomography scan suggestive of questionable fistula from the bladder to:. And question about diverticulitis. Patient also been having some diarrhea for quite a few days she states. No blood. Patient started and IV ceftriaxone. Antibiotics switched to cefepime and Flagyl. December 07-cystoscope a short severe hemorrhagic cystitis, mucosal tear in the posterior bladder wall. Landin catheter was placed. Today-has a Landin catheter was significant hematuria. Decreased bladder spasms. Her diet. Review of systems: Was done for constitutional, cardiovascular, GI, pulmonary. relevant finding as above Active Medications Acetaminophen (Tylenol Tab) 650 mg PO Q6HR PRN PRN Reason: Mild Pain or Fever > 100.5 Last Admin: 12/09/19 08:27 Dose: 650 mg Documented by: Hydrocodone Bitart/Acetaminophen ([place] 5-325) 1 each PO Q6HR PRN PRN Reason: Pain Ascorbic Acid (Vitamin C) 500 mg PO DAILY [facility] Last Admin: 12/09/19 08:28 Dose: 500 mg Documented by: Atorvastatin Calcium (Lipitor) 20 mg PO [facility] Last Admin: 12/09/19 20:57 Dose: 20 mg Documented by: Belladonna Alkaloids/Opium (B&O Suppository) 1 each RECTAL TID PRN PRN Reason: Pain Last Admin: 12/09/19 15:18 Dose: 1 each Documented by: Clopidogrel Bisulfate (Plavix) 75 mg PO [facility] Last Admin: 12/09/19 20:57 Dose: 75 mg Documented by: Cyanocobalamin (Vitamin B-12) 500 mcg PO DAILY [facility] Last Admin: 12/09/19 08:28 Dose: 500 mcg Documented by: Sodium Chloride (Saline 0.9%) 1,000 mls @ 100 mls/hr IV .Q10H COUNT INCLUDES THE [facility] Last Admin: 12/09/19 20:58 Dose: 100 mls/hr Documented by: Cefepime HCl 1 gm/ Sodium (Chloride) 50 mls @ 100 mls/hr IVPB Q12H COUNT [facility]CLUDES [facility] Last Admin: 12/09/19 11:37 Dose: 100 mls/hr Documented by: Metronidazole 500 mg/ IV (Solution) 100 mls @ 100 mls/hr IVPB Q8HR [facility]CLUD[facility] Last Admin: 12/09/19 16:11 Dose: 100 mls/hr Documented by: Insulin Aspart (Novolog) 0 unit SQ [facility] COUNT INCLUDES THE [facility]; Protocol Last Admin: 12/09/19 20:58 Dose: 4 unit Documented by: Insulin Detemir (Levemir) 20 unit SQ [facility] Last Admin: 12/09/19 20:58 Dose: 20 unit Documented by: Isosorbide Mononitrate (Imdur) 30 mg PO DAILY [facility] Last Admin: 12/09/19 08:28 Dose: 30 mg Documented by: Levothyroxine Sodium (Synthroid) 50 mcg PO 0630 COUNT [facility]CLUD[facility] Last Admin: 12/09/19 05:53 Dose: 50 mcg Documented by: Losartan Potassium (Cozaar) 50 mg PO DAILY COUNT [facility]CLUD[facility] Last Admin: 12/09/19 08:28 Dose: 50 mg Documented by: Morphine Sulfate (Morphine Sulfate (Inj)) 2 mg IVP Q4H PRN PRN Reason: Pain/Discomfort Last Admin: 12/09/19 15:19 Dose: 2 mg Documented by: Naloxone HCl (Narcan) 0.2 mg IV Q2M PRN PRN Reason: Opioid Reversal Ondansetron HCl (Zofran) 4 mg IVP Q8HR PRN PRN Reason: Nausea And Vomiting Last Admin: 12/08/19 22:53 Dose: 4 mg Documented by: Oxybutynin Chloride (Ditropan) 5 mg PO TID [facility] Last Admin: 12/09/19 20:57 Dose: 5 mg Documented by: Quinine Sulfate (Qualaquin) 324 mg PO [facility] Last Admin: 12/09/19 20:57 Dose: 324 mg Documented by: Physical examination: VITAL SIGNS: 98.4, 88, 17, 146/65, 95% on room air GENERAL: Sitting up in a chair, comfortable EYES: Pupils equal. Conjunctiva normal. HEENT: External appearance of nose and ears normal, oral cavity grossly normal. NECK: JVD not raised; masses not palpable. HEART: First and second heart sounds are normal; no edema. LUNGS: Respiratory rate normal; clear to auscultation. ABDOMEN: Soft, minimal lower abdominal tenderness, no guarding or rigidity, liver spleen not palpable, no masses palpable-Landin catheter with blood in the bag. PSYCH: Alert and oriented x3; mood and affect normal. 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 Possible subcu tract extending from the mid sigmoid to the bladder dome. Fistula possible. [id number] left-sided hydronephrosis with no obstructive stone. Bilateral nonobstructive renal calculi. Urine culture unremarkable Assessment: -worsening hematuria the last 2 weeks. Associated bladder spasm. Cystoscopy showing severe hemorrhagic cystitis and a posterior bladder wall mucosal tear. -Acute UTI and cystitis -Probable sigmoid diverticulitis and/or questionable fistula from the colon to the bladder. -Left-sided hydronephrosis. -Bilateral nephrolithiasis -Coronary artery disease with stent about 15 months ago -Diabetes mellitus type 2 -Essential hypertension -Hypothyroid -Chronic kidney disease stage III from bilateral kidney stones -Hypertensive kidney disease Plan: -. Continue patient on IV Flagyl and cefepime. IV fluids. In view of renal function DC Cozaar temporarily. Patient is getting intermittent bladder flushes. Await decision from general surgery about further surgical intervention. Repeat labs.
[2019-12-10] MEDS: metroNIDAZOLE-NS PMX 500 MG in SALINE 1 100ML.BAG IVPB SCH ×4 (01:01→23:47)
[2019-12-10] MEDS: MORPHINE SULFATE 2 MG/ML SYRINGE IVP PRN ×2 (05:08→23:02)
[2019-12-10] MEDS: LEVOTHYROXINE 50 MCG TAB PO SCH (05:08)
[2019-12-10 06:54] LABS: Glucose,Whole Blood 120 mg/dL (75-99)
[2019-12-10] MEDS: INSULIN ASPART (NovoLOG) 100 UNIT/ML VIAL SQ SCH ×4 (07:07→23:01)
[2019-12-10 07:30] LABS: HGB 11.7 gm/dL (13.0-17.5); Hypochromasia Moderate; MCH 28.8 pg (25.0-35.0); MCHC 31.7 g/dL (31.0-37.0); MCV 90.8 fL (80.0-100.0); Mean Platelet Volume 7.8; Platelet Count 174 k/uL (150-450); RBC 4.07 m/uL (4.30-5.90); WBC 12.8 k/uL (3.8-10.6)
[2019-12-10 07:50] LABS: Calcium 8.4 mg/dL (8.4-10.2); Potassium 4.5 mmol/L (3.5-5.1)
[2019-12-10] MEDS: OXYBUTYNIN CHLORIDE 5 MG TAB PO SCH ×3 (08:05→23:01)
[2019-12-10] MEDS: ASCORBIC ACID 500 MG TAB PO SCH (08:05)
[2019-12-10] MEDS: SODIUM CHLORIDE 0.9% 1,000 ML IV SCH ×3 (08:05→23:47)
[2019-12-10] MEDS: cloNIDine HCL 0.1 MG TAB PO SCH ×2 (08:05→23:01)
[2019-12-10] MEDS: CYANOCOBALAMIN 500 MCG TAB PO SCH (08:05)
[2019-12-10] MEDS: ISOSORBIDE MONONITRATE ER 30 MG TAB.ER.24H PO SCH (08:05)
--- NOTE | 2019-12-10 08:43 | P.PN ---
Subjective Progress Note Date: 12/10/19 The patient on Wednesday underwent cystoscopy for persistent dysuria or hematuria and an abnormal urinalysis. The urine culture had grown 10-49,000 genital fluoroscopy. The computed tomography scan showed some left hydronephrosis as well as diverticulitis and a possible colovesical fistula. He did not have pneumaturia nor did he have any air in the bladder on computed tomography scan. The computed tomography scan showed a severely inflamed bladder mucosal tear without distinct tumor formation. Biopsies are obtained to rule out carcinoma in situ. The patient's hematuria is decreasing. His pain is decreasing. Depending on the biopsy report as to treatment options. His diarrhea seems to be less. This was discussed at length with the patient. We'll continue to follow. Objective - Vital Signs Vital signs: Vital Signs Temp 97.6 F 12/10/19 07:00 Pulse 84 12/10/19 07:00 Resp 18 12/10/19 07:00 BP 165/79 12/10/19 07:00 Pulse Ox 96 12/10/19 07:00 Intake & Output 12/09/19 12/10/19 12/10/19 18:59 06:59 18:59 Intake Total 1080 350 Output Total 1300 2200 Balance -220 -1850 Intake: Oral 1080 350 Output: Urine 1300 2200 Uretheral (Landin) 100 Other: Voiding Method Indwelling Catheter Indwelling Catheter Indwelling Catheter # Bowel Movements 2 - Labs CBC & Chem 7: 12/10/19 07:05 12/10/19 07:05 Labs: Abnormal Lab Results - Last 24 Hours (Table) 12/09/19 12/09/19 12/09/19 Range/Units 11:26 16:25 20:22 WBC (3.8-10.6) k/uL RBC (4.30-5.90) m/uL Hgb (13.0-17.5) gm/dL Hct (39.0-53.0) % Chloride (98-107) mmol/L Carbon Dioxide (22-30) mmol/L BUN (9-20) mg/dL Creatinine (0.66-1.25) mg/dL Glucose (74-99) mg/dL POC Glucose (mg/dL) 168 H 125 H 263 H (75-99) mg/dL 12/10/19 12/10/19 12/10/19 Range/Units 06:52 07:05 07:05 WBC 12.8 H (3.8-10.6) k/uL RBC 4.07 L (4.30-5.90) m/uL Hgb 11.7 L (13.0-17.5) gm/dL Hct 37.0 L (39.0-53.0) % Chloride 115 H (98-107) mmol/L Carbon Dioxide 20 L (22-30) mmol/L BUN 26 H (9-20) mg/dL Creatinine 1.90 H (0.66-1.25) mg/dL Glucose 127 H (74-99) mg/dL POC Glucose (mg/dL) 120 H (75-99) mg/dL
--- NOTE | 2019-12-10 09:33 | PN ---
PROGRESS NOTE DATE OF SERVICE: 12/10/2019 Patient is an 79-year-old pleasant white male admitted to the hospital with severe hematuria and abdominal pain. CT scan showed diverticulitis, presently on broad- spectrum antibiotics. Underwent cystoscopy and was noted to have acute hemorrhagic cystitis. Biopsies are still pending. He is doing better. He still has hematuria. Landin catheter in place. He remains on broad-spectrum antibiotics for acute sigmoid diverticulitis and questionable colovesical fistula. PHYSICAL EXAMINATION: He appears comfortable. No apparent distress. VITAL SIGNS: Stable. Blood pressure is 165/79, temperature 97.6, pulse rate 84. HEENT: Examination unremarkable. Conjunctivae are pink. Sclerae anicteric. Oral cavity no lesions. NECK: No JVD, no lymph node enlargement. CHEST: Clear to auscultation. HEART: Regular rate and rhythm. ABDOMEN: Soft, bowel sounds are positive. There was mild tenderness in the suprapubic area. EXTREMITIES: No pedal edema. NEUROLOGIC: Alert and oriented x3. No focal deficits. LABS: WBC 12.8, hemoglobin 11.7, platelets 178. BUN 26, creatinine 1.90. IMPRESSION: 1. Hematuria status post cystoscopy that showed acute hemorrhagic cystitis. Presently on antibiotics for possible urinary tract infection . Biopsies are still pending. 2. Acute sigmoid diverticulitis with possible colovesical fistula. Colonoscopy done 2 months ago that showed diverticulosis. 3. History of coronary artery disease. On aspirin and Plavix. 4. History of diabetes mellitus and hypothyroidism. RECOMMENDATIONS: 1. Continue antibiotics. 2. Continue with a low-fiber diet. 3. Repeat labs in the morning. 4. We will follow with you closely. Thank you for this consultation. MMODL / IJN: [id number] /
--- NOTE | 2019-12-10 10:51 | P.PN ---
Subjective Progress Note Date: 12/10/19 Principal diagnosis: Possible colovesical fistula Patient says he feels better today. He was able to sleep well last night. White blood cell count 12.8, hemoglobin 11.7. Urine slightly less bloody. Objective - Vital Signs Vital signs: Vital Signs Temp 97.6 F 12/10/19 07:00 Pulse 84 12/10/19 07:00 Resp 18 12/10/19 07:00 BP 165/79 12/10/19 07:00 Pulse Ox 96 12/10/19 07:00 Intake & Output 12/09/19 12/10/19 12/10/19 18:59 06:59 18:59 Intake Total 1080 350 Output Total 1300 2200 Balance -220 -1850 Intake: Oral 1080 350 Output: Urine 1300 2200 Uretheral (Landin) 100 Other: Voiding Method Indwelling Catheter Indwelling Catheter Indwelling Catheter # Bowel Movements 2 - Exam Abdomen: Soft, nondistended, nontender - Labs CBC & Chem 7: 12/10/19 07:05 12/10/19 07:05 Labs: Abnormal Lab Results - Last 24 Hours (Table) 12/09/19 12/09/19 12/09/19 Range/Units 11:26 16:25 20:22 WBC (3.8-10.6) k/uL RBC (4.30-5.90) m/uL Hgb (13.0-17.5) gm/dL Hct (39.0-53.0) % Chloride (98-107) mmol/L Carbon Dioxide (22-30) mmol/L BUN (9-20) mg/dL Creatinine (0.66-1.25) mg/dL Glucose (74-99) mg/dL POC Glucose (mg/dL) 168 H 125 H 263 H (75-99) mg/dL 12/10/19 12/10/19 12/10/19 Range/Units 06:52 07:05 07:05 WBC 12.8 H (3.8-10.6) k/uL RBC 4.07 L (4.30-5.90) m/uL Hgb 11.7 L (13.0-17.5) gm/dL Hct 37.0 L (39.0-53.0) % Chloride 115 H (98-107) mmol/L Carbon Dioxide 20 L (22-30) mmol/L BUN 26 H (9-20) mg/dL Creatinine 1.90 H (0.66-1.25) mg/dL Glucose 127 H (74-99) mg/dL POC Glucose (mg/dL) 120 H (75-99) mg/dL Assessment and Plan (1) Diverticulitis Narrative/Plan: Continue antibiotics. Await biopsies and cultures. Will follow. Current Visit: Yes Status: Acute Code(s): K57.92 - DVTRCLI OF INTEST, PART UNSP, W/O PERF OR ABSCESS W/O BLEED SNOMED Code(s): 738255173
[2019-12-10 11:27] LABS: Glucose,Whole Blood 172 mg/dL (75-99)
[2019-12-10] MEDS: CEFEPIME 1 GM in SODIUM CHLORIDE 0.9% 50 ML IVPB SCH ×2 (11:47→23:02)
[2019-12-10] MEDS: ACETAMINOPHEN TAB 325 MG TAB PO PRN ×2 (11:50→19:46)
[2019-12-10 16:34] LABS: Glucose,Whole Blood 163 mg/dL (75-99)
--- NOTE | 2019-12-10 18:01 | P.PN ---
Progress Note - Text Progress Note Date: 12/10/19 Chief Complaint: Hematuria History of presenting complaint: This is a very pleasant [address] Pola Knott. Also follows with ceramics teacher Dr. Shannon Andres. Chronic stable medical conditions include diabetes, chronic kidney disease hypertension, coronary artery disease with a stent about 15 months ago. Patient for about one has been having hematuria especially in the last 2 weeks has been far more problems with sometimes brock blood. Patient was recently started on antibiotics in the form of doxycycline by Dr. Persaud was patient's urologist. Also having some suprapubic tenderness. Has started feeling dizzy. Sometimes gets bladder spasms. Because the symptoms not getting controlled decided to come to the ER. Dr. Persaud was consulted. Denies cystoscopy. Has known kidney stones. Computed tomography scan suggestive of questionable fistula from the bladder to:. And question about diverticulitis. Patient also been having some diarrhea for quite a few days she states. No blood. Patient started and IV ceftriaxone. Antibiotics switched to cefepime and Flagyl. December [id number] hemorrhagic cystitis, mucosal tear in the posterior bladder wall. Landin catheter was placed. Brock hematuria present. Cozaar were discontinued because of renal function. Today-Landin catheter still putting out dark blood. Patient is having 2 or 3 bowel movements a day. Minimal Abdominal pain. Tolerating diet Review of systems: Was done for constitutional, cardiovascular, GI, pulmonary. relevant finding as above Active Medications Acetaminophen (Tylenol Tab) 650 mg PO Q6HR PRN PRN Reason: Mild Pain or Fever > 100.5 Last Admin: 12/10/19 11:50 Dose: 650 mg Documented by: Hydrocodone Bitart/Acetaminophen ([place] 5-325) 1 each PO Q6HR PRN PRN Reason: Pain Ascorbic Acid (Vitamin C) 500 mg PO DAILY [facility] Last Admin: 12/10/19 08:05 Dose: 500 mg Documented by: Atorvastatin Calcium (Lipitor) 20 mg PO HS [facility] Last Admin: 12/09/19 20:57 Dose: 20 mg Documented by: Belladonna Alkaloids/Opium (B&O Suppository) 1 each RECTAL TID PRN PRN Reason: Pain Last Admin: 12/09/19 15:18 Dose: 1 each Documented by: Clonidine (Catapres) 0.1 mg PO BID [facility] Last Admin: 12/10/19 08:05 Dose: 0.1 mg Documented by: Clopidogrel Bisulfate (Plavix) 75 mg PO [facility] Last Admin: 12/09/19 20:57 Dose: 75 mg Documented by: Cyanocobalamin (Vitamin B-12) 500 mcg PO DAILY [facility] Last Admin: 12/10/19 08:05 Dose: 500 mcg Documented by: Cefepime HCl 1 gm/ Sodium (Chloride) 50 mls @ 100 mls/hr IVPB Q12H [facility] Last Admin: 12/10/19 11:47 Dose: 100 mls/hr Documented by: Metronidazole 500 mg/ IV (Solution) 100 mls @ 100 mls/hr IVPB Q8HR [facility] Last Admin: 12/10/19 15:16 Dose: 100 mls/hr Documented by: Sodium Chloride (Saline 0.9%) 1,000 mls @ 130 mls/hr IV .Q7H42M [facility] Last Admin: 12/10/19 15:16 Dose: 130 mls/hr Documented by: Insulin Aspart (Novolog) 0 unit SQ [facility]; Protocol Last Admin: 12/10/19 17:43 Dose: 1 unit Documented by: Insulin Detemir (Levemir) 20 unit SQ [facility] Last Admin: 12/09/19 20:58 Dose: 20 unit Documented by: Isosorbide Mononitrate (Imdur) 30 mg PO DAILY [facility] Last Admin: 12/10/19 08:05 Dose: 30 mg Documented by: Levothyroxine Sodium (Synthroid) 50 mcg PO 0630 [facility] Last Admin: 12/10/19 05:08 Dose: 50 mcg Documented by: Morphine Sulfate (Morphine Sulfate (Inj)) 2 mg IVP Q4H PRN PRN Reason: Pain/Discomfort Last Admin: 12/10/19 05:08 Dose: 2 mg Documented by: Naloxone HCl (Narcan) 0.2 mg IV Q2M PRN PRN Reason: Opioid Reversal Ondansetron HCl (Zofran) 4 mg IVP Q8HR PRN PRN Reason: Nausea And Vomiting Last Admin: 12/08/19 22:53 Dose: 4 mg Documented by: Oxybutynin Chloride (Ditropan) 5 mg PO TID [facility] Last Admin: 12/10/19 15:15 Dose: 5 mg Documented by: Quinine Sulfate (Qualaquin) 324 mg PO [facility] Last Admin: 12/09/19 20:57 Dose: 324 mg Documented by: Physical examination: VITAL SIGNS: 98.3, 70, 17, 130/58, 97% room air GENERAL: Sitting up in a chair, comfortable EYES: Pupils equal. Conjunctiva normal. HEENT: External appearance of nose and ears normal, oral cavity grossly normal. NECK: JVD not raised; masses not palpable. HEART: First and second heart sounds are normal; no edema. LUNGS: Respiratory rate normal; clear to auscultation. ABDOMEN: Soft, minimal lower abdominal tenderness, no guarding or rigidity, liver spleen not palpable, no masses palpable-Landin catheter with blood in the bag. PSYCH: Alert and oriented x3; mood and affect normal. 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 Possible subcu tract extending from the mid sigmoid to the bladder dome. Fistula possible. [id number] left-sided hydronephrosis with no obstructive stone. Bilateral nonobstructive renal calculi. Urine culture unremarkable Assessment: -worsening hematuria the last 2 weeks. Associated bladder spasm. Cystoscopy showing severe hemorrhagic cystitis and a posterior bladder wall mucosal tear. Has a Landin catheter in place. -Acute UTI and cystitis-urine culture negative -Probable sigmoid diverticulitis and/or questionable fistula from the colon to the bladder.-Being followed by Dr. Garcia -Left-sided hydronephrosis. -Bilateral nephrolithiasis -Coronary artery disease with stent about 15 months ago -Diabetes mellitus type 2 -Essential hypertension -Hypothyroid -Chronic kidney disease stage III from bilateral kidney stones -Hypertensive kidney disease Plan: -. Continue patient on IV Flagyl and cefepime. In view of hyperchloremia we'll change the fluids to half saline. Repeat labs in the morning. Follow with surgery and urology. GI.
[2019-12-10 21:22] LABS: Glucose,Whole Blood 214 mg/dL (75-99)
[2019-12-10] MEDS: INSULIN DETEMIR (LEVEMIR) 100 UNIT/ML SYR SQ SCH (23:01)
[2019-12-10] MEDS: ATORVASTATIN 20 MG TAB PO SCH (23:01)
[2019-12-10] MEDS: CLOPIDOGREL 75 MG TAB PO SCH (23:01)
[2019-12-11] MEDS: ACETAMINOPHEN TAB 325 MG TAB PO PRN (05:22)
[2019-12-11] MEDS: MORPHINE SULFATE 2 MG/ML SYRINGE IVP PRN ×2 (05:23→08:31)
[2019-12-11] MEDS: LEVOTHYROXINE 50 MCG TAB PO SCH (05:23)
[2019-12-11] MEDS: ONDANSETRON 4 MG/2 ML VIAL IVP PRN (05:23)
[2019-12-11] MEDS: BELLADONNA-OPIUM 16.2-60 MG 1 EACH SUPP RECTAL PRN ×2 (05:23→12:18)
[2019-12-11 07:07] LABS: Glucose,Whole Blood 113 mg/dL (75-99)
[2019-12-11] MEDS: INSULIN ASPART (NovoLOG) 100 UNIT/ML VIAL SQ SCH ×4 (07:15→22:06)
[2019-12-11 07:58] LABS: HGB 10.5 gm/dL (13.0-17.5); Hypochromasia Slight; MCH 28.4 pg (25.0-35.0); MCHC 31.7 g/dL (31.0-37.0); MCV 89.8 fL (80.0-100.0); Mean Platelet Volume 8.1; Platelet Count 165 k/uL (150-450); RBC 3.68 m/uL (4.30-5.90); RDW 15.4 % (11.5-15.5); WBC 12.5 k/uL (3.8-10.6)
[2019-12-11 08:12] LABS: Calcium 8.4 mg/dL (8.4-10.2); Potassium 4.3 mmol/L (3.5-5.1)
--- NOTE | 2019-12-11 08:20 | P.PN ---
Subjective From records This is a very pleasant [address] Pola Knott. Also follows with [employer] Dr. Shannon Andres. Chronic stable medical conditions include diabetes, chronic kidney disease hypertension, coronary artery disease with a stent about 15 months ago. Patient for about one has been having hematuria especially in the last 2 weeks has been far more problems with sometimes shanice blood. Patient was recently started on antibiotics in the form of doxycycline by Dr. Persaud was patient's urologist. Also having some suprapubic tenderness. Has started feeling dizzy. Sometimes gets bladder spasms. Because the symptoms not getting controlled decided to come to the ER. Dr. Persaud was consulted. Denies cystoscopy. Has known kidney stones. Computed tomography scan suggestive of questionable fistula from the bladder to:. And question about diverticulitis. Patient also been having some diarrhea for quite a few days she states. No blood. Patient started and IV ceftriaxone. Antibiotics switched to cefepime and Flagyl. December [id number] hemorrhagic cystitis, mucosal tear in the posterior bladder wall. Landin catheter was placed. Shanice hematuria present. Cozaar were discontinued because of renal function. Today-Landin catheter still putting out dark blood. Patient is having 2 or 3 bowel movements a day. Minimal Abdominal pain. Tolerating diet Subjective 12/11/2019 This is a pleasant 79 years old male who presents with hematuria secondary to severe margins cystitis for cystoscopy done on 12/07, also is been treated for UTI with cefepime and IV Flagyl, also is on antibiotics for sigmoid diverticuli tis and there was suspicion of possible vesico-colonic fistula with surgery and GI and neurology team on the case Last night he had a rough last Night because his Landin catheter was blocked and has to be flushed, patient needed pain medication and he was complaining from pain at the penile area (patient refused genital exam) This morning he was having some acid reflux, Protonix is admitted. He denies abdominal pain, no LLQ pain or tenderness. No nausea vomiting and is tolerated that well however he has pain on eating due to acid reflux, Protonix was added as he was not on PPI or antiacids. WBC stable at 12.5 K, looks chronic. Creatinine is improving down to 1.7, which is close to his baseline of 1.4-1.8, no fever. Physical normal saline and with 30 mL/h, IV cefepime and IV fluids Objective - Vital Signs Vital signs: Vital Signs Temp 97.6 F 12/11/19 07:00 Pulse 75 12/11/19 07:00 Resp 18 12/11/19 07:00 BP 143/76 12/11/19 07:00 Pulse Ox 97 12/11/19 07:00 Intake & Output 12/10/19 12/11/19 12/11/19 18:59 06:59 18:59 Intake Total 850 950 Output Total 1600 1825 Balance -750 -875 Intake: Intake, IV Titration 850 Amount Cefepime 1 gm In Sodium 50 Chloride 0.9% 50 ml @ 100 mls/hr IVPB Q12H KAT Rx# :[id number] Sodium Chloride 0.9% 1, 700 000 ml @ 130 mls/hr IV . Q7H42M KAT Rx#:[id number] metroNIDAZOLE-NS PMX 500 100 mg In Saline 1 100ml.bag @ 100 mls/hr IVPB Q8HR KAT Rx#:[id number] Oral 950 Output: Urine 1600 1825 Other: Voiding Method Indwelling Catheter - Exam GENERAL: The patient is alert and oriented x3, not in any acute distress. Well developed, well nourished. HEENT: Pupils are round and equally reacting to light. EOMI. No scleral icterus. No conjunctival pallor. Normocephalic, atraumatic. No pharyngeal erythema. No thyromegaly. CARDIOVASCULAR: S1 and S2 present. No murmurs, rubs, or gallops. PULMONARY: Chest is clear to auscultation, no wheezing or crackles. -ABDOMEN: Soft, nontender, nondistended, normoactive bowel sounds. No palpable organomegaly. Landin catheter is in place (patient is refusing genital exam) MUSCULOSKELETAL: No joint swelling or deformity. EXTREMITIES: No cyanosis, clubbing, or pedal edema. NEUROLOGICAL: Gross neurological examination did not reveal any focal deficits. SKIN: No rashes. no petechiae. - Labs CBC & Chem 7: 12/11/19 06:50 12/10/19 07:05 Labs: Abnormal Lab Results - Last 24 Hours (Table) 12/10/19 12/10/19 12/10/19 Range/Units 11:25 16:32 21:21 WBC (3.8-10.6) k/uL RBC (4.30-5.90) m/uL Hgb (13.0-17.5) gm/dL Hct (39.0-53.0) % POC Glucose (mg/dL) 172 H 163 H 214 H (75-99) mg/dL 12/11/19 12/11/19 Range/Units 06:50 06:58 WBC 12.5 H (3.8-10.6) k/uL RBC 3.68 L (4.30-5.90) m/uL Hgb 10.5 L (13.0-17.5) gm/dL Hct 33.0 L (39.0-53.0) % POC Glucose (mg/dL) 113 H (75-99) mg/dL Assessment and Plan Assessment: - severe hemorrhagic cystitis and a posterior bladder wall mucosal tear. 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 -Left-sided hydronephrosis. -Bilateral nephrolithiasis -Possible Reflux esophagitis -Coronary artery disease with stent about 15 months ago -Diabetes mellitus type 2 -Essential hypertension -Hypothyroid -Chronic kidney disease stage III from bilateral kidney stones -Hypertensive kidney disease Plan: This is a pleasant 79 years old male who presents with hemorrhagic cystitis, sigmoid diverticulitis and possible vesico-colonic fistula. Continue patient on IV Flagyl and cefepime. Continue with IV fluids. Follow with surgery and urology and GI. Labs and medication were reviewed.. Continue same treatment. Continue with symptomatic treatment. Resume home medication. Monitor lytes and vitals. DVT and GI prophylaxis. Further recommendations of the clinical course of the patient DVT prophylaxis: no Subcutaneous heparin in the view of hematuria GI Prophylaxis: pi PT/OT: Pending Prognosis is guarded
[2019-12-11] MEDS: CYANOCOBALAMIN 500 MCG TAB PO SCH (08:49)
[2019-12-11] MEDS: OXYBUTYNIN CHLORIDE 5 MG TAB PO SCH ×3 (08:49→22:18)
[2019-12-11] MEDS: ASCORBIC ACID 500 MG TAB PO SCH (08:49)
[2019-12-11] MEDS: metroNIDAZOLE-NS PMX 500 MG in SALINE 1 100ML.BAG IVPB SCH (08:49)
[2019-12-11] MEDS: ISOSORBIDE MONONITRATE ER 30 MG TAB.ER.24H PO SCH (08:49)
[2019-12-11] MEDS: cloNIDine HCL 0.1 MG TAB PO SCH ×2 (08:49→22:18)
[2019-12-11] MEDS: SODIUM CHLORIDE 0.9% 1,000 ML IV SCH ×4 (08:50→23:21)
[2019-12-11] MEDS ORDERED: PANTOPRAZOLE 40 MG/10 ML VIAL IVP SCH (09:00)
[2019-12-11 11:35] LABS: Glucose,Whole Blood 228 mg/dL (75-99)
--- NOTE | 2019-12-11 11:57 | P.PN ---
Progress Note - Text Progress Note Date: 12/11/19 The patient is afebrile. He continues to have intermittent suprapubic discomfort and penile pain related to bladder spasms. His bladder has been irrigated periodically but apparently only a few clots were removed this morning. I irrigated the catheter later this morning and only 2 or 3 cc of clot were present. His hemoglobin today is 10.5. His pathology report is pending. I discussed the patient with Dr. Esteban earlier this morning and he would prefer that the catheter remained in place until at least tomorrow. Hopefully the path report will be available by tomorrow also. In the meantime the patient's bladder spasms will be treated with anticholinergics.
[2019-12-11] MEDS: CEFEPIME 1 GM in SODIUM CHLORIDE 0.9% 50 ML IVPB SCH ×2 (12:16→23:21)
[2019-12-11] MEDS: HYDROcodone/APAP 5-325MG 1 EACH TAB PO PRN ×2 (12:17→23:20)
--- NOTE | 2019-12-11 13:58 | P.PN ---
Progress Note - Text Progress Note Date: 12/11/19 Patient's complaints of severe suprapubic pain. He describes a bladder spasms. There are some clots in his Landin catheter. On exam vessels are stable. Abdomen soft there is minimal left lower quadrant pain there is significant suprapubic pain Patient's Landin catheter is being irrigated by the urology service. He has hemorrhagic cystitis. Patient's diverticulitis will be continued treated with IV antibiotics.
[2019-12-11 14:29] VITALS: BMI 26.3
[2019-12-11] MEDS: metroNIDAZOLE 500 MG TAB PO SCH ×2 (15:59→23:20)
[2019-12-11 16:20] LABS: Glucose,Whole Blood 151 mg/dL (75-99)
[2019-12-11 16:48] LABS: Amorphous Sediment,Urine Rare /hpf; Appearance,Urine Cloudy (Clear); Bacteria,Urine Occasional /hpf; Bilirubin,Urine Negative (Negative); Blood,Urine Large (Negative); Color,Urine Light Red; Glucose,Urine (UA) Negative (Negative); Ketones,Urine Negative (Negative); Leukocyte Esterase,Urine Large (Negative); Mucus,Urine Rare /hpf; Nitrite,Urine Negative (Negative); PH, Urine 5.5 (5.0-8.0); Protein,Urine 1+ (Negative); RBC,Urine >182 /hpf (0-5); Specific Gravity,Urine 1.014 (1.001-1.035); Urobilinogen,Urine <2.0 mg/dL (<2.0); WBC,Urine 48 /hpf (0-5)
[2019-12-11 21:41] LABS: Glucose,Whole Blood 109 mg/dL (75-99)
[2019-12-11] MEDS: INSULIN DETEMIR (LEVEMIR) 100 UNIT/ML SYR SQ SCH (22:10)
[2019-12-11] MEDS: PANTOPRAZOLE 40 MG TABLET PO SCH (22:18)
[2019-12-11] MEDS: ATORVASTATIN 20 MG TAB PO SCH (22:18)
[2019-12-11] MEDS: CLOPIDOGREL 75 MG TAB PO SCH (22:18)
[2019-12-12] MEDS: ACETAMINOPHEN TAB 325 MG TAB PO PRN (05:39)
[2019-12-12] MEDS: LEVOTHYROXINE 50 MCG TAB PO SCH (05:39)
[2019-12-12 07:10] LABS: Glucose,Whole Blood 96 mg/dL (75-99)
[2019-12-12] MEDS: INSULIN ASPART (NovoLOG) 100 UNIT/ML VIAL SQ SCH ×4 (07:12→22:28)
[2019-12-12 08:12] LABS: Basophils # (A) 0.1 k/uL (0-0.2); Basophils % (A) 1 %; Eosinophils # (A) 0.4 k/uL (0-0.7); Eosinophils % (A) 3 %; HCT 37.4 % (39.0-53.0); HGB 11.2 gm/dL (13.0-17.5); Hypochromasia Slight; Lymphocytes # (A) 1.3 k/uL (1.0-4.8); Lymphocytes % (A) 10 %; MCHC 30.1 g/dL (31.0-37.0); MCV 89.7 fL (80.0-100.0); Mean Platelet Volume 7.8; Monocytes # (A) 0.9 k/uL (0-1.0); Monocytes % (A) 7 %; Neutrophils # (A) 9.4 k/uL (1.3-7.7); Neutrophils % (A) 75 %; Platelet Count 226 k/uL (150-450); RBC 4.17 m/uL (4.30-5.90); RDW 15.6 % (11.5-15.5); WBC 12.5 k/uL (3.8-10.6)
[2019-12-12 08:21] LABS: Calcium 8.7 mg/dL (8.4-10.2); Potassium 4.5 mmol/L (3.5-5.1)
--- NOTE | 2019-12-12 08:24 | P.PN ---
Subjective From records This is a very pleasant [address] Pola Knott. Also follows with [employer] Dr. Shannon Andres. Chronic stable medical conditions include diabetes, chronic kidney disease hypertension, coronary artery disease with a stent about 15 months ago. Patient for about one has been having hematuria especially in the last 2 weeks has been far more problems with sometimes brock blood. Patient was recently started on antibiotics in the form of doxycycline by Dr. Persuad was patient's urologist. Also having some suprapubic tenderness. Has started feeling dizzy. Sometimes gets bladder spasms. Because the symptoms not getting controlled decided to come to the ER. Dr. Persaud was consulted. Denies cystoscopy. Has known kidney stones. Computed tomography scan suggestive of questionable fistula from the bladder to:. And question about diverticulitis. Patient also been having some diarrhea for quite a few days she states. No blood. Patient started and IV ceftriaxone. Antibiotics switched to cefepime and Flagyl. December [id number] hemorrhagic cystitis, mucosal tear in the posterior bladder wall. Landin catheter was placed. Brock hematuria present. Cozaar were discontinued because of renal function. Today-Landin catheter still putting out dark blood. Patient is having 2 or 3 bowel movements a day. Minimal Abdominal pain. Tolerating diet Subjective 12/11/2019 This is a pleasant 79 years old male who presents with hematuria secondary to severe hemorrhagic cystitis ,cystoscopy done on 12/07, also is been treated for UTI with cefepime and IV Flagyl, also is on antibiotics for sigmoid diverticul itis and there was suspicion of possible vesico-colonic fistula with surgery and GI and urology team on the case Last night he had a rough last Night because his Landin catheter was blocked and has to be flushed, patient needed pain medication and he was complaining from pain at the penile area (patient refused genital exam) This morning he was having some acid reflux, Protonix is admitted. He denies abdominal pain, no LLQ pain or tenderness. No nausea vomiting and is tolerated that well however he has pain on eating due to acid reflux, Protonix was added as he was not on PPI or antiacids. WBC stable at 12.5 K, looks chronic. Creatinine is improving down to 1.7, which is close to his baseline of 1.4-1.8, no fever. Physical normal saline and with 30 mL/h, IV cefepime and IV fluids 12/12/2019 Patient is awake and alert, his abdominal pain and bladder spasm was better today, he still gets some abdominal cramps now and then. Landin catheter still in place and has clear urine this morning. No other complaint no dyspnea or chest pain. He has this suprapubic tenderness today. No fever. Labs from today showing WBC stable at 12.5 K which is chronic. Hemoglobin stable at 11.2. Platelet normal. Sugar controlled. Urinary bladder biopsy showing invasive high-grade urothelial carcinoma with features suggestive of lymph/vascular invasion. Urology is on the case Patient remains on cefepime and IV Flagyl and normal saline at 130 mL/h. Patient will benefit from ECF for inpatient rehab per OT team recommendation, discussed with the patient he was hesitant but he agrees to see social service worker for possible ECF placement for rehab Objective - Vital Signs Vital signs: Vital Signs Temp 97.8 F 12/12/19 07:00 Pulse 75 12/12/19 07:00 Resp 18 12/12/19 07:00 BP 126/65 12/12/19 07:00 Pulse Ox 95 12/12/19 07:00 Intake & Output 12/11/19 12/12/19 12/12/19 18:59 06:59 18:59 Output Total 900 2475 Balance -900 -2475 Weight 76.204 kg Output: Urine 900 2475 Other: Voiding Method Indwelling Catheter # Voids 1 # Bowel Movements 2 - Exam GENERAL: The patient is alert and oriented x3, not in any acute distress. Well developed, well nourished. HEENT: Pupils are round and equally reacting to light. EOMI. No scleral icterus. No conjunctival pallor. Normocephalic, atraumatic. No pharyngeal erythema. No thyromegaly. CARDIOVASCULAR: S1 and S2 present. No murmurs, rubs, or gallops. PULMONARY: Chest is clear to auscultation, no wheezing or crackles. -ABDOMEN: Soft, nontender, nondistended, normoactive bowel sounds. No palpable organomegaly. Landin catheter is in place (patient is refusing genital exam) MUSCULOSKELETAL: No joint swelling or deformity. EXTREMITIES: No cyanosis, clubbing, or pedal edema. NEUROLOGICAL: Gross neurological examination did not reveal any focal deficits. SKIN: No rashes. no petechiae. - Labs CBC & Chem 7: 12/12/19 07:23 12/11/19 06:50 Labs: Abnormal Lab Results - Last 24 Hours (Table) 12/11/19 12/11/19 12/11/19 Range/Units 06:50 11:32 16:18 WBC (3.8-10.6) k/uL RBC (4.30-5.90) m/uL Hgb (13.0-17.5) gm/dL Hct (39.0-53.0) % MCHC (31.0-37.0) g/dL RDW (11.5-15.5) % Neutrophils # (1.3-7.7) k/uL POC Glucose (mg/dL) 228 H 151 H (75-99) mg/dL Procalcitonin 0.32 H (0.02-0.09) ng/mL Urine Protein (Negative) Urine Blood (Negative) Ur Leukocyte Esterase (Negative) Urine RBC (0-5) /hpf Urine WBC (0-5) /hpf Amorphous Sediment (None) /hpf Urine Bacteria (None) /hpf Urine Mucus (None) /hpf 12/11/19 12/11/19 12/12/19 Range/Units 16:30 21:40 07:23 WBC 12.5 H (3.8-10.6) k/uL RBC 4.17 L (4.30-5.90) m/uL Hgb 11.2 L (13.0-17.5) gm/dL Hct 37.4 L (39.0-53.0) % MCHC 30.1 L (31.0-37.0) g/dL RDW 15.6 H (11.5-15.5) % Neutrophils # 9.4 H (1.3-7.7) k/uL POC Glucose (mg/dL) 109 H (75-99) mg/dL Procalcitonin (0.02-0.09) ng/mL Urine Protein 1+ H (Negative) Urine Blood Large H (Negative) Ur Leukocyte Esterase Large H (Negative) Urine RBC >182 H (0-5) /hpf Urine WBC 48 H (0-5) /hpf Amorphous Sediment Rare H (None) /hpf Urine Bacteria Occasional H (None) /hpf Urine Mucus Rare H (None) /hpf Assessment and Plan Assessment: - severe hemorrhagic cystitis and a posterior bladder wall mucosal tear. 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 -Left-sided hydronephrosis. -Bilateral nephrolithiasis -Possible Reflux esophagitis -Coronary artery disease with stent about 15 months ago -Diabetes mellitus type 2 -Essential hypertension -Hypothyroid -Chronic kidney disease stage III from bilateral kidney stones -Hypertensive kidney disease Plan: This is a pleasant 79 years old male who presents with hemorrhagic cystitis, sigmoid diverticulitis and possible vesico-colonic fistula. Urine biopsy showing urothelial cancer. Continue patient on IV Flagyl and cefepime. Continue with IV fluids. Follow with surgery and urology and GI. I discussed with the patient and he is thinking about going to rehab or no Labs and medication were reviewed.. Continue same treatment. Continue with symptomatic treatment. Resume home medication. Monitor lytes and vitals. DVT and GI prophylaxis. Further recommendations of the clinical course of the pat ient DVT prophylaxis: no Subcutaneous heparin in the view of hematuria GI Prophylaxis: pi PT/OT: Pending Prognosis is guarded
[2019-12-12] MEDS: cloNIDine HCL 0.1 MG TAB PO SCH ×2 (08:45→22:25)
[2019-12-12] MEDS: CYANOCOBALAMIN 500 MCG TAB PO SCH (08:45)
[2019-12-12] MEDS: ISOSORBIDE MONONITRATE ER 30 MG TAB.ER.24H PO SCH (08:46)
[2019-12-12] MEDS: PANTOPRAZOLE 40 MG TABLET PO SCH ×2 (08:46→22:26)
[2019-12-12] MEDS: HYDROcodone/APAP 5-325MG 1 EACH TAB PO PRN ×2 (08:46→22:55)
[2019-12-12] MEDS: OXYBUTYNIN CHLORIDE 5 MG TAB PO SCH ×3 (08:46→22:26)
[2019-12-12] MEDS: metroNIDAZOLE 500 MG TAB PO SCH ×3 (08:46→23:41)
[2019-12-12] MEDS: ASCORBIC ACID 500 MG TAB PO SCH (08:46)
[2019-12-12] MEDS: BELLADONNA-OPIUM 16.2-60 MG 1 EACH SUPP RECTAL PRN (08:46)
[2019-12-12] MEDS: CEFEPIME 1 GM in SODIUM CHLORIDE 0.9% 50 ML IVPB SCH ×2 (10:46→22:27)
[2019-12-12 12:06] LABS: Glucose,Whole Blood 120 mg/dL (75-99)
--- NOTE | 2019-12-12 12:32 | P.PN ---
Progress Note - Text Progress Note Date: 12/12/19 Patient is resting comfortably in bed. Patient has a newly diagnosed bladder cancer. His Landin catheter has lost blood in it. On exam vital signs show. Abdomen soft. Newly diagnosed bladder cancer await urology and oncology input.
--- NOTE | 2019-12-12 12:50 | P.PN ---
Subjective Progress Note Date: 12/12/19 The patient is clinically improving. His urine has cleared. His vital signs are stable. The pathology came back high-grade bladder cancer. Unfortunately these were only cup biopsy so therefore muscle invasion is not determined based on this biopsy. The left hydronephrosis could signal muscle invasion however he also has had the diverticulitis and recent stone passage. The patient needs a transurethral resection of this area under a general or spinal anesthetic determine muscle invasion as that we'll clarify treatment options. I distended the last 20 minutes with the patient and his family explaining this. He'll be set up for the surgery tomorrow day by myself or one of my partners based on availability. Objective - Vital Signs Vital signs: Vital Signs Temp 97.8 F 12/12/19 07:00 Pulse 75 12/12/19 07:00 Resp 18 12/12/19 07:00 BP 126/65 12/12/19 07:00 Pulse Ox 95 12/12/19 07:00 Intake & Output 12/11/19 12/12/19 12/12/19 18:59 06:59 18:59 Output Total 900 2475 Balance -900 -2475 Weight 76.204 kg Output: Urine 900 2475 Other: Voiding Method Indwelling Catheter Indwelling Catheter # Voids 1 # Bowel Movements 2 - Labs CBC & Chem 7: 12/12/19 07:23 12/12/19 07:23 Labs: Abnormal Lab Results - Last 24 Hours (Table) 12/11/19 12/11/19 12/11/19 Range/Units 16:18 16:30 21:40 WBC (3.8-10.6) k/uL RBC (4.30-5.90) m/uL Hgb (13.0-17.5) gm/dL Hct (39.0-53.0) % MCHC (31.0-37.0) g/dL RDW (11.5-15.5) % Neutrophils # (1.3-7.7) k/uL Chloride (98-107) mmol/L Carbon Dioxide (22-30) mmol/L BUN (9-20) mg/dL Creatinine (0.66-1.25) mg/dL POC Glucose (mg/dL) 151 H 109 H (75-99) mg/dL Urine Protein 1+ H (Negative) Urine Blood Large H (Negative) Ur Leukocyte Esterase Large H (Negative) Urine RBC >182 H (0-5) /hpf Urine WBC 48 H (0-5) /hpf Amorphous Sediment Rare H (None) /hpf Urine Bacteria Occasional H (None) /hpf Urine Mucus Rare H (None) /hpf 12/12/19 12/12/19 12/12/19 Range/Units 07:23 07:23 12:05 WBC 12.5 H (3.8-10.6) k/uL RBC 4.17 L (4.30-5.90) m/uL Hgb 11.2 L (13.0-17.5) gm/dL Hct 37.4 L (39.0-53.0) % MCHC 30.1 L (31.0-37.0) g/dL RDW 15.6 H (11.5-15.5) % Neutrophils # 9.4 H (1.3-7.7) k/uL Chloride 113 H (98-107) mmol/L Carbon Dioxide 19 L (22-30) mmol/L BUN 25 H (9-20) mg/dL Creatinine 1.73 H (0.66-1.25) mg/dL POC Glucose (mg/dL) 120 H (75-99) mg/dL Urine Protein (Negative) Urine Blood (Negative) Ur Leukocyte Esterase (Negative) Urine RBC (0-5) /hpf Urine WBC (0-5) /hpf Amorphous Sediment (None) /hpf Urine Bacteria (None) /hpf Urine Mucus (None) /hpf
[2019-12-12] MEDS ORDERED: IOPAMIDOL CONTRAST (ORAL USE) VIAL PO PRN (14:02)
[2019-12-12] MEDS ORDERED: BARIUM SULFATE 450 ML ORAL.SUSP BOTTLE PO ONE ×2 (14:27→18:00)
[2019-12-12] MEDS: SODIUM CHLORIDE 0.9% 1,000 ML IV SCH ×2 (14:32→23:46)
--- NOTE | 2019-12-12 15:34 | P.CONS ---
History of Present Illness - Reason for Consult Consult date: 12/12/19 New diagnosis high grade urothelial carcinoma Requesting physician: Ian E Sheet - Chief Complaint abdominal Pain - History of Present Illness Mr. Sorensen is a pleasant male patient who originally presented to emergency with hematuria and lower abdominal pain. He underwent a cystoscopy by Dr. Esteban and biopsy. Pathology revealed high grade urothelial carcinoma. He has known chronic stable medical conditions include diabetes, chronic kidney disease hypertension, coronary artery disease with a stent about 15 months ago. Because of the results of this pathology medical oncology has been consulted. Urology is planning on TURP tomorrow am, and staging scans have been ordered, although without contrast secondary to chronic kidney disease. Review of Systems A 14 point review of systems assessed and completed and all negative except HPI Past Medical History Past Medical History: Chest Pain / Angina, Diabetes Mellitus, Hypertension Additional Past Medical History / Comment(s): shortness of breath History of Any Multi-Drug Resistant Organisms: None Reported Past Surgical History: Back Surgery Additional Past Surgical History / Comment(s): hand surgery. back surgery with 4 screws and 2 rods Past Anesthesia/Blood Transfusion Reactions: No Reported Reaction Additional Past Anesthesia/Blood Transfusion Reaction / Comm: son allergic to one type of anesthesia Past Psychological History: No Psychological Hx Reported Past Alcohol Use History: None Reported Additional Past Alcohol Use History / Comment(s): quit 1991 smoked 30+ years on and off Past Drug Use History: None Reported - Past Family History Mother Family Medical History: Unable to Obtain Additional Family Medical History / Comment(s): adopted Medications and Allergies Home Medications Medication Instructions Recorded Confirmed Type Ascorbic Acid [Vitamin C] 500 mg PO DAILY 03/31/18 12/05/19 History Cholecalciferol [Vitamin D3] 1,000 unit PO DAILY 03/31/18 12/05/19 History Cyanocobalamin [Vitamin B-12] 500 mcg PO DAILY 03/31/18 12/05/19 History Losartan Potassium 50 mg PO DAILY 03/31/18 12/05/19 History Simvastatin [Zocor] 40 mg PO HS 03/31/18 12/05/19 History Insulin Aspart [NovoLOG] See Protocol SQ TID-W/MEALS 08/01/18 12/05/19 History quiNINE SULFATE 324 mg PO HS 08/01/18 12/05/19 History Insulin Glargine [Lantus] 20 unit SQ HS 10/10/19 12/05/19 History Isosorbide Mononitrate [Isosorbide 30 mg PO DAILY 10/10/19 12/05/19 History Mononitrate ER] Levothyroxine Sodium [Synthroid] 50 mcg PO DAILY 10/10/19 12/05/19 History Clopidogrel [Plavix] 75 mg PO HS 12/05/19 12/05/19 History Doxycycline Hyclate [Vibramycin] 100 mg PO BID 12/05/19 12/05/19 History Allergies Allergy/AdvReac Type Severity Reaction Status Date / Time ciprofloxacin [From Cipro] Allergy Swelling Verified 12/05/19 16:42 propoxyphene [From Darvon] Allergy Hallucinati Verified 12/05/19 16:42 ons Iodinated Contrast Media AdvReac Dyspnea Verified 12/05/19 16:42 [Iodinated Contrast- Oral and IV Dye] Physical Exam Vitals: Vital Signs Temp Pulse Resp BP Pulse Ox 12/12/19 07:00 97.8 F 75 18 126/65 95 12/12/19 00:34 99.1 F 64 103/58 97 12/11/19 20:00 98.1 F 77 16 122/55 99 Intake and Output 12/12/19 12/12/19 12/12/19 06:59 14:59 22:59 Output Total 1625 Balance -1625 Output: Urine 1625 Other: Voiding Method Indwelling Catheter Indwelling Catheter # Voids 1 # Bowel Movements 2 1 - Constitutional General appearance: cooperative, no acute distress - EENT Eyes: EOMI, PERRLA, dentition normal ENT: hard of hearing, NA/AT, normal oropharynx - Neck Neck: normal ROM - Respiratory Respiratory: bilateral: CTA (no increased effort) - Cardiovascular Rhythm: regular Heart sounds: normal: S1, S2 - Gastrointestinal General gastrointestinal: normal bowel sounds, soft, tenderness - Neurologic non-focal Neurologic: CNII-XII intact - Musculoskeletal Musculoskeletal: generalized weakness, strength equal bilaterally - Psychiatric Psychiatric: A&O x's 3, appropriate affect, intact judgment & insight Results CBC & Chem 7: 12/12/19 07:23 12/12/19 07:23 Labs: Abnormal Lab Results - Last 24 Hours (Table) 12/11/19 12/11/19 12/11/19 Range/Units 16:18 16:30 21:40 WBC (3.8-10.6) k/uL RBC (4.30-5.90) m/uL Hgb (13.0-17.5) gm/dL Hct (39.0-53.0) % MCHC (31.0-37.0) g/dL RDW (11.5-15.5) % Neutrophils # (1.3-7.7) k/uL Chloride (98-107) mmol/L Carbon Dioxide (22-30) mmol/L BUN (9-20) mg/dL Creatinine (0.66-1.25) mg/dL POC Glucose (mg/dL) 151 H 109 H (75-99) mg/dL Urine Protein 1+ H (Negative) Urine Blood Large H (Negative) Ur Leukocyte Esterase Large H (Negative) Urine RBC >182 H (0-5) /hpf Urine WBC 48 H (0-5) /hpf Amorphous Sediment Rare H (None) /hpf Urine Bacteria Occasional H (None) /hpf Urine Mucus Rare H (None) /hpf 12/12/19 12/12/19 12/12/19 Range/Units 07:23 07:23 12:05 WBC 12.5 H (3.8-10.6) k/uL RBC 4.17 L (4.30-5.90) m/uL Hgb 11.2 L (13.0-17.5) gm/dL Hct 37.4 L (39.0-53.0) % MCHC 30.1 L (31.0-37.0) g/dL RDW 15.6 H (11.5-15.5) % Neutrophils # 9.4 H (1.3-7.7) k/uL Chloride 113 H (98-107) mmol/L Carbon Dioxide 19 L (22-30) mmol/L BUN 25 H (9-20) mg/dL Creatinine 1.73 H (0.66-1.25) mg/dL POC Glucose (mg/dL) 120 H (75-99) mg/dL Urine Protein (Negative) Urine Blood (Negative) Ur Leukocyte Esterase (Negative) Urine RBC (0-5) /hpf Urine WBC (0-5) /hpf Amorphous Sediment (None) /hpf Urine Bacteria (None) /hpf Urine Mucus (None) /hpf CT scan - abdomen: report reviewed CT scan - pelvis: report reviewed Assessment and Plan (1) Urothelial carcinoma of bladder Current Visit: Yes Status: Acute Code(s): C67.9 - MALIGNANT NEOPLASM OF BLADDER, UNSPECIFIED SNOMED Code(s): 306458391 Plan: Assessment and Recommendations: New Diagnosis High Grade Urothelial Carcinoma: - Planning on Surgical resection by Urology on 12/13/19 - Staging CTs without contrast Chest, abdomen and pelvis and bone scan have been ordered Hematuria: Improving: - Iron studies and monitoring CBC Plan: - Further recommendations after resection and staging completed Physician attest: I have completed the full history and physical and agree with above dictation. Dictated as a scribe.
[2019-12-12 17:12] LABS: Glucose,Whole Blood 137 mg/dL (75-99)
--- NOTE | 2019-12-12 20:21 | CT ---
EXAMINATION TYPE: CT ChestAbdPelvis wo con DATE OF EXAM: 12/12/2019 INDICATION: COMPARISON: 12/05/2019 CT DLP: 837.1 mGycm CONTRAST: No intravenous contrast. Oral contrast was utilized. TECHNIQUE: Axial images at 5 mm thick sections. Reconstructed images in the coronal plane. Delayed images through the kidneys. FINDINGS: CT CHEST: Portion of the thyroid visualized is normal. No suspicious lung nodules or focal infiltrates are present. No enlarged mediastinal or hilar adenopathy is evident. There are scattered small lymph nodes within the mediastinum. The ascending aorta diameter at the level of the main pulmonary artery is 3.1 cm. The main pulmonary artery diameter at the bifurcation is 2.8 cm. Coronary artery calcification is present. CT ABDOMEN: Liver: There is moderate fatty infiltration of the liver. Spleen: Normal Pancreas: Normal Adrenal glands: The adrenal glands are normal. Gallbladder: Normal Kidneys: No masses are evident. No right hydronephrosis is evident. There are multiple renal stones p resent on the right. The largest is in the posterior lateral right mid kidney and measures 0.6 cm. Th ere is moderate left hydronephrosis. There are nonobstructing renal stones within the left kidney inc luding a 0.7 cm superior lateral calcification. There is moderate left hydroureter which can be trace d to the urinary bladder. An etiology for obstruction is not identified. Consider recent passage of t he calcification. Aorta: Vascular calcification is within the aorta. Inferior vena cava: Normal. CT PELVIS: Multiple diverticuli are present within the sigmoid colon. No acute diverticulitis changes are eviden t. Oral contrast extends to the distal small bowel loops. There are loops of bowel which are incomple tely distended or lack oral contrast limiting their evaluation. Appendix: Normal as visualized. No adjacent inflammatory changes are evident. The appendix is retroce delgado and redundant. Urinary bladder: Urinary bladder is decompressed with a Landin catheter. No urinary bladder stones are evident. Genitourinary structures: Prostate appears unremarkable Osseous structures: No suspicious lytic or sclerotic lesions. IMPRESSIONS: 1. Moderate left hydronephrosis and hydroureter without an obstructing renal or ureteral stone. 2. Bilateral renal lithiasis. 3. Diverticulosis without acute diverticulitis. 4. Fatty infiltration liver.
[2019-12-12 21:07] LABS: Glucose,Whole Blood 102 mg/dL (75-99)
[2019-12-12] MEDS: INSULIN DETEMIR (LEVEMIR) 100 UNIT/ML SYR SQ SCH (22:23)
[2019-12-12] MEDS: CLOPIDOGREL 75 MG TAB PO SCH (22:26)
[2019-12-12] MEDS: ATORVASTATIN 20 MG TAB PO SCH (22:55)
[2019-12-12] MEDS: ONDANSETRON 4 MG/2 ML VIAL IVP PRN (22:55)
[2019-12-13 01:56] LABS: % Iron Saturation 8.04 (15.00-50.00); Ferritin 315.8 ng/mL (22.0-322.0)
[2019-12-13] MEDS: LEVOTHYROXINE 50 MCG TAB PO SCH (05:49)
[2019-12-13] MEDS: HYDROcodone/APAP 5-325MG 1 EACH TAB PO PRN ×2 (05:49→21:15)
[2019-12-13] MEDS: SODIUM CHLORIDE 0.9% 1,000 ML IV SCH ×3 (05:52→22:08)
[2019-12-13 07:00] LABS: Glucose,Whole Blood 92 mg/dL (75-99)
[2019-12-13] MEDS: INSULIN ASPART (NovoLOG) 100 UNIT/ML VIAL SQ SCH ×4 (07:05→22:08)
[2019-12-13] MEDS: PANTOPRAZOLE 40 MG TABLET PO SCH ×2 (07:10→22:07)
[2019-12-13] MEDS: CYANOCOBALAMIN 500 MCG TAB PO SCH (07:10)
[2019-12-13] MEDS: OXYBUTYNIN CHLORIDE 5 MG TAB PO SCH ×3 (07:10→22:07)
[2019-12-13] MEDS: ISOSORBIDE MONONITRATE ER 30 MG TAB.ER.24H PO SCH (07:10)
[2019-12-13] MEDS: metroNIDAZOLE 500 MG TAB PO SCH ×3 (07:10→23:21)
[2019-12-13] MEDS: cloNIDine HCL 0.1 MG TAB PO SCH ×2 (07:10→22:08)
[2019-12-13 07:46] LABS: Basophils # (A) 0.1 k/uL (0-0.2); Basophils % (A) 0 %; Eosinophils # (A) 0.3 k/uL (0-0.7); Eosinophils % (A) 3 %; HCT 34.4 % (39.0-53.0); Hypochromasia Moderate; Lymphocytes % (A) 10 %; MCH 29.1 pg (25.0-35.0); Mean Platelet Volume 7.5; Monocytes # (A) 0.7 k/uL (0-1.0); Monocytes % (A) 7 %; Neutrophils % (A) 77 %; Platelet Count 231 k/uL (150-450); RBC 3.78 m/uL (4.30-5.90); RDW 15.4 % (11.5-15.5); WBC 10.5 k/uL (3.8-10.6)
[2019-12-13 07:50] LABS: Calcium 8.3 mg/dL (8.4-10.2); Potassium 4.4 mmol/L (3.5-5.1)
[2019-12-13] MEDS ORDERED: LACTATED RINGERS 1,000 ML IV ONE (09:24)
[2019-12-13] MEDS ORDERED: fentaNYL (PF) 50 MCG/ML 2 ML AMP ONE (09:29)
[2019-12-13] MEDS ORDERED: ROCURONIUM 10 MG/ML (5 ML VIAL) IV ONE (09:29)
[2019-12-13] MEDS ORDERED: NEOSTIGMINE 1 MG/ML 10 ML VIAL ONE (09:29)
[2019-12-13] MEDS ORDERED: LIDOCAINE 1% INJ 10MG/ML (20 ML MDV) ONE (09:29)
[2019-12-13] MEDS ORDERED: MIDAZOLAM 2 MG/2 ML VIAL ONE (09:29)
[2019-12-13] MEDS ORDERED: GLYCOPYRROLATE 0.2 MG/ML 2 ML VIAL ONE (09:29)
[2019-12-13] MEDS ORDERED: PROPOFOL 10 MG/ML 20 ML VIAL IV ONE (09:29)
[2019-12-13] MEDS ORDERED: SUCCINYLCHOLINE CHLORIDE 100 MG/5 ML SYR IV ONE (09:29)
--- NOTE | 2019-12-13 10:36 | P.OP ---
Date of Procedure: 12/13/19 Preoperative Diagnosis: Bladder cancer Postoperative Diagnosis: Same Procedure(s) Performed: TURBT [ medium] Anesthesia: PAMA Surgeon: Andrew Esteban Pathology: other (Bladder tumor) Condition: stable Disposition: PACU Indications for Procedure: The patient is 79. He came to the hospital recently with recurrent gross hematuria and burning. He had a urinalysis worrisome for an infection. He had been treated for recurrent urine infection by his medical doctor for several months. His urine culture did not grow any significant bacteria. He underwent cystoscopy evacuation of clot and bladder biopsy last week. The bladder is extremely inflamed and I could not really determine anything based on the appearance of the bladder at the time. The biopsy came back positive for high- grade cancer of the bladder wall. No muscle was obtained due to the type of biopsy that I did. Therefore he comes back for transurethral resection of this erythematous area to stage the bladder cancer and determine whether this is carcinoma in situ or invasive bladder cancer into the muscle. Description of Procedure: The patient is brought to the operating suite. He is given a general endotracheal anesthesia. He's placed lithotomy position with a sterile prep and drape. Urethra is cut to 28-Moldovan with the [place] urethrotome. Under direct vision a 5-Moldovan sheath with direct vision obturator and Foroblique lenses introduced in urethra. Urethra is normal. The prostate is somewhat obstructing with the lateral lobes. There is edema near the bladder neck. Upon entering the bladder wall the bladder is severely trabeculated. There is marked edematous erythematous mucosa extending from mid bladder to bladder neck circumferentially completely. No distinct papillary tumors noted. It did not even look like pedunculated or sessile tumor. Images showed severe edema consistent with CIF. The resected area of the bladder is then cauterized thoroughly. The specimen is evacuated from the bladder and sent to pathology. At the end of the procedure and 18-Moldovan 5 mL balloon coud-tip catheters introduced the bladder with clear to light pink urine return. Impression this patient has had recurrent hematuria. Bladder biopsy showed a high-grade carcinoma. The inflamed areas resected and will be sent to pathology to determine muscle invasion and further complete evaluation of this cancer. A new the results as to further recommendations.
[2019-12-13] MEDS: HYDROmorphone 1 MG/ML 1 ML SYRINGE IVP ONE ×3 (10:54→11:16)
[2019-12-13 11:06] LABS: Glucose,Whole Blood 100 mg/dL (75-99)
[2019-12-13] MEDS ORDERED: HYDROmorphone 1 MG/ML 1 ML SYRINGE IVP ONE (11:46)
--- NOTE | 2019-12-13 11:49 | P.OP ---
Date of Procedure: 12/13/19 Preoperative Diagnosis: Bladder cancer Postoperative Diagnosis: Same Procedure(s) Performed: TURBT Anesthesia: GETA Surgeon: Andrew Esteban Description of Procedure: The patient had his dictation of his bladder cancer resection in the previous note. The addendum is that the tumor is greater than 2 cm but less than 5 cm. It is diffuse edema and erythema in the bladder wall circumferentially from the mid bladder to bladder neck
[2019-12-13 12:16] LABS: Glucose,Whole Blood 101 mg/dL (75-99)
[2019-12-13] MEDS ORDERED: fentaNYL (PF) 50 MCG/ML 2 ML AMP IVP ONE (12:24)
[2019-12-13] MEDS ORDERED: LABETALOL SYRINGE 5 MG/ML IVP ONE (12:35)
--- NOTE | 2019-12-13 13:31 | P.PN ---
Progress Note - Text Progress Note Date: 12/13/19 The patient underwent TURBT today. He is resting in his bed.
[2019-12-13] MEDS: CEFEPIME 1 GM in SODIUM CHLORIDE 0.9% 50 ML IVPB SCH ×2 (13:45→22:08)
--- NOTE | 2019-12-13 14:56 | NM ---
EXAMINATION TYPE: NM bone scan whole body DATE OF EXAM: 12/13/2019 COMPARISON: CT chest abdomen pelvis 12/12/2019. HISTORY: Urothelial carcinoma. Delayed whole-body scanning was performed following the injection of 23.6 mCi Tc 99m MDP. Images acq uired 6.5 hours post injection. FINDINGS: No suspicious focal activity. Symmetric degenerative activity of the bilateral shoulders, sternoclavi cular joints, and ankles. Activity of the superior cervical spine on the left and inferior cervical s pine on the right likely related to facet arthropathy. Activity in the right foot first MTP joint deg enerative. Focus of activity at the sternomanubrial joint with no correlate lesion on 12/12/2019 CT, l ikely degenerative. IMPRESSION: Degenerative uptake as above, with no suspicious focal activity.
[2019-12-13 15:47] LABS: Glucose,Whole Blood 93 mg/dL (75-99)
[2019-12-13] MEDS: ACETAMINOPHEN TAB 325 MG TAB PO PRN (15:59)
[2019-12-13 17:15] LABS: Glucose,Whole Blood 152 mg/dL (75-99)
[2019-12-13 21:38] LABS: Glucose,Whole Blood 158 mg/dL (75-99)
[2019-12-13] MEDS: CLOPIDOGREL 75 MG TAB PO SCH (22:00)
[2019-12-13] MEDS: ATORVASTATIN 20 MG TAB PO SCH (22:07)
[2019-12-13] MEDS: INSULIN DETEMIR (LEVEMIR) 100 UNIT/ML SYR SQ SCH (22:08)
--- NOTE | 2019-12-13 22:16 | P.PN ---
Subjective From records This is a very pleasant [address] Pola Knott. Also follows with marine welder Dr. Shannon Andres. Chronic stable medical conditions include diabetes, chronic kidney disease hypertension, coronary artery disease with a stent about 15 months ago. Patient for about one has been having hematuria especially in the last 2 weeks has been far more problems with sometimes brock blood. Patient was recently started on antibiotics in the form of doxycycline by Dr. Persaud was patient's urologist. Also having some suprapubic tenderness. Has started feeling dizzy. Sometimes gets bladder spasms. Because the symptoms not getting controlled decided to come to the ER. Dr. Persaud was consulted. Denies cystoscopy. Has known kidney stones. Computed tomography scan suggestive of questionable fistula from the bladder to:. And question about diverticulitis. Patient also been having some diarrhea for quite a few days she states. No blood. Patient started and IV ceftriaxone. Antibiotics switched to cefepime and Flagyl. December [id number] hemorrhagic cystitis, mucosal tear in the posterior bladder wall. Landin catheter was placed. Brock hematuria present. Cozaar were discontinued because of renal function. Today-Landin catheter still putting out dark blood. Patient is having 2 or 3 bowel movements a day. Minimal Abdominal pain. Tolerating diet Subjective 12/11/2019 This is a pleasant 79 years old male who presents with hematuria secondary to severe hemorrhagic cystitis ,cystoscopy done on 12/07, also is been treated for UTI with cefepime and IV Flagyl, also is on antibiotics for sigmoid diverticul itis and there was suspicion of possible vesico-colonic fistula with surgery and GI and urology team on the case Last night he had a rough last Night because his Landin catheter was blocked and has to be flushed, patient needed pain medication and he was complaining from pain at the penile area (patient refused genital exam) This morning he was having some acid reflux, Protonix is admitted. He denies abdominal pain, no LLQ pain or tenderness. No nausea vomiting and is tolerated that well however he has pain on eating due to acid reflux, Protonix was added as he was not on PPI or antiacids. WBC stable at 12.5 K, looks chronic. Creatinine is improving down to 1.7, which is close to his baseline of 1.4-1.8, no fever. Physical normal saline and with 30 mL/h, IV cefepime and IV fluids 12/12/2019 Patient is awake and alert, his abdominal pain and bladder spasm was better today, he still gets some abdominal cramps now and then. Landin catheter still in place and has clear urine this morning. No other complaint no dyspnea or chest pain. He has this suprapubic tenderness today. No fever. Labs from today showing WBC stable at 12.5 K which is chronic. Hemoglobin stable at 11.2. Platelet normal. Sugar controlled. Urinary bladder biopsy showing invasive high-grade urothelial carcinoma with features suggestive of lymph/vascular invasion. Urology is on the case Patient remains on cefepime and IV Flagyl and normal saline at 130 mL/h. Patient will benefit from ECF for inpatient rehab per OT team recommendation, discussed with the patient he was hesitant but he agrees to see social worker masters for possible ECF placement for rehab 12/13/19 Patient underwent transurethral resection of the bladder tumor to identify its cancer in situ versus invasive cancer into the muscles. Oncology team also evaluated the patient for further treatment PET scan: No focal activity, degenerative disease. WBC is back to normal today at 10.5 K, hemoglobin stable at 11.0. Sugar is controlled and creatinine is slightly down at 1.6 and vitals are stable Patient remains on cefepime, IV Flagyl and normal sclera 2029 Objective - Vital Signs Vital signs: Vital Signs Temp 97.2 F L 12/13/19 10:33 Pulse 92 12/13/19 12:15 Resp 18 12/13/19 12:15 BP 197/87 12/13/19 12:15 Pulse Ox 99 12/13/19 12:15 Intake & Output 12/12/19 12/13/19 12/13/19 18:59 06:59 18:59 Intake Total 400 850 Output Total 1000 1200 20 Balance -1000 -800 830 Weight 76.204 kg Intake: IV 850 Oral 400 Output: Urine 1000 1200 Estimated Blood Loss 20 Other: Voiding Method Indwelling Catheter Indwelling Catheter # Bowel Movements 1 - Exam GENERAL: The patient is alert and oriented x3, not in any acute distress. Well developed, well nourished. HEENT: Pupils are round and equally reacting to light. EOMI. No scleral icterus. No conjunctival pallor. Normocephalic, atraumatic. No pharyngeal erythema. No thyromegaly. CARDIOVASCULAR: S1 and S2 present. No murmurs, rubs, or gallops. PULMONARY: Chest is clear to auscultation, no wheezing or crackles. -ABDOMEN: Soft, nontender, nondistended, normoactive bowel sounds. No palpable o rganomegaly. Landin catheter is in place (patient is refusing genital exam) MUSCULOSKELETAL: No joint swelling or deformity. EXTREMITIES: No cyanosis, clubbing, or pedal edema. NEUROLOGICAL: Gross neurological examination did not reveal any focal deficits. SKIN: No rashes. no petechiae. - Labs CBC & Chem 7: 12/13/19 06:56 12/13/19 06:56 Labs: Abnormal Lab Results - Last 24 Hours (Table) 12/12/19 12/12/19 12/12/19 Range/Units 07:23 17:11 21:04 RBC (4.30-5.90) m/uL Hgb (13.0-17.5) gm/dL Hct (39.0-53.0) % Neutrophils # (1.3-7.7) k/uL Chloride (98-107) mmol/L Carbon Dioxide (22-30) mmol/L BUN (9-20) mg/dL Creatinine (0.66-1.25) mg/dL POC Glucose (mg/dL) 137 H 102 H (75-99) mg/dL Calcium (8.4-10.2) mg/dL Iron 18 L (65-175) ug/dL TIBC 224 L (228-460) ug/dL % Saturation 8.04 L (15.00-50.00) 12/13/19 12/13/19 12/13/19 Range/Units 06:56 06:56 11:04 RBC 3.78 L (4.30-5.90) m/uL Hgb 11.0 L (13.0-17.5) gm/dL Hct 34.4 L (39.0-53.0) % Neutrophils # 8.0 H (1.3-7.7) k/uL Chloride 112 H (98-107) mmol/L Carbon Dioxide 18 L (22-30) mmol/L BUN 25 H (9-20) mg/dL Creatinine 1.63 H (0.66-1.25) mg/dL POC Glucose (mg/dL) 100 H (75-99) mg/dL Calcium 8.3 L (8.4-10.2) mg/dL Iron (65-175) ug/dL TIBC (228-460) ug/dL % Saturation (15.00-50.00) 12/13/19 Range/Units 12:15 RBC (4.30-5.90) m/uL Hgb (13.0-17.5) gm/dL Hct (39.0-53.0) % Neutrophils # (1.3-7.7) k/uL Chloride (98-107) mmol/L Carbon Dioxide (22-30) mmol/L BUN (9-20) mg/dL Creatinine (0.66-1.25) mg/dL POC Glucose (mg/dL) 101 H (75-99) mg/dL Calcium (8.4-10.2) mg/dL Iron (65-175) ug/dL TIBC (228-460) ug/dL % Saturation (15.00-50.00) Assessment and Plan Assessment: - severe hemorrhagic cystitis and a posterior bladder wall mucosal tear. 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 -Left-sided hydronephrosis. -Bilateral nephrolithiasis -Possible Reflux esophagitis -Coronary artery disease with stent about 15 months ago -Diabetes mellitus type 2 -Essential hypertension -Hypothyroid -Chronic kidney disease stage III from bilateral kidney stones -Hypertensive kidney disease Plan: This is a pleasant 79 years old male who presents with hemorrhagic cystitis, sigmoid diverticulitis and possible vesico-colonic fistula. Urine biopsy showing urothelial cancer. He is a status post TURBT Continue patient on IV Flagyl and cefepime. Continue with IV fluids. Follow with surgery and urology and GI. I discussed with the patient and he is thinking about going to rehab or no Labs and medication were reviewed.. Continue same treatment. Continue with symptomatic treatment. Resume home medication. Monitor lytes and vitals. DVT and GI prophylaxis. Further recommendations of the clinical course of the patient DVT prophylaxis: no Subcutaneous heparin in the view of hematuria GI Prophylaxis: pi PT/OT: Pending Prognosis is guarded
[2019-12-13] MEDS: MORPHINE SULFATE 2 MG/ML SYRINGE IVP PRN (23:20)
[2019-12-14] MEDS: MORPHINE SULFATE 2 MG/ML SYRINGE IVP PRN ×2 (03:23→16:55)
[2019-12-14] MEDS: SODIUM CHLORIDE 0.9% 1,000 ML IV SCH ×3 (03:27→19:38)
[2019-12-14] MEDS: LEVOTHYROXINE 50 MCG TAB PO SCH (06:01)
[2019-12-14 07:08] LABS: Glucose,Whole Blood 105 mg/dL (75-99)
[2019-12-14] MEDS: ISOSORBIDE MONONITRATE ER 30 MG TAB.ER.24H PO SCH (08:02)
[2019-12-14] MEDS: CYANOCOBALAMIN 500 MCG TAB PO SCH (08:02)
[2019-12-14] MEDS: cloNIDine HCL 0.1 MG TAB PO SCH ×2 (08:03→21:06)
[2019-12-14] MEDS: PANTOPRAZOLE 40 MG TABLET PO SCH ×2 (08:03→21:06)
[2019-12-14] MEDS: metroNIDAZOLE 500 MG TAB PO SCH ×3 (08:03→23:55)
[2019-12-14] MEDS: OXYBUTYNIN CHLORIDE 5 MG TAB PO SCH ×3 (08:03→21:06)
[2019-12-14] MEDS: INSULIN ASPART (NovoLOG) 100 UNIT/ML VIAL SQ SCH ×4 (08:05→20:22)
[2019-12-14] MEDS ORDERED: MAGNESIUM HYDROXIDE 2,400 MG/10 ML CUP PO PRN (08:06)
[2019-12-14] MEDS: HYDROcodone/APAP 5-325MG 1 EACH TAB PO PRN ×3 (08:11→19:36)
--- NOTE | 2019-12-14 08:21 | P.PN ---
Progress Note - Text Progress Note Date: 12/14/19 The patient is afebrile. His main complaint is intermittent bladder spasms which are worse when his bladder is irrigated. The patient's bladder has been irrigated periodically through the night but only a small amount of clots have been present. This is as expected following the transurethral biopsies obtained yesterday. The frequency of the bladder irrigation will be decreased. Unfortunately the patient has become constipated probably due to his use of narcotics and anti-cholinergics. He is receiving cathartics and may require an enema later today. His catheter will remain until he is seen by Dr. Esteban next week.
[2019-12-14 08:51] LABS: Basophils # (A) 0.1 k/uL (0-0.2); Basophils % (A) 0 %; Eosinophils # (A) 0.3 k/uL (0-0.7); Eosinophils % (A) 2 %; HCT 35.4 % (39.0-53.0); HGB 11.3 gm/dL (13.0-17.5); Hypochromasia Moderate; Lymphocytes # (A) 1.2 k/uL (1.0-4.8); Lymphocytes % (A) 7 %; MCHC 31.9 g/dL (31.0-37.0); Mean Platelet Volume 7.2; Monocytes # (A) 1.1 k/uL (0-1.0); Monocytes % (A) 6 %; Neutrophils # (A) 14.4 k/uL (1.3-7.7); Neutrophils % (A) 82 %; Platelet Count 235 k/uL (150-450); RDW 15.3 % (11.5-15.5); WBC 17.6 k/uL (3.8-10.6)
[2019-12-14 09:10] LABS: Calcium 8.3 mg/dL (8.4-10.2); Potassium 4.5 mmol/L (3.5-5.1)
[2019-12-14 11:36] LABS: Glucose,Whole Blood 118 mg/dL (75-99)
--- NOTE | 2019-12-14 12:03 | P.PN ---
Subjective From records This is a very pleasant [address] Pola Knott. Also follows with astrobiologist Dr. Shannon Andres. Chronic stable medical conditions include diabetes, chronic kidney disease hypertension, coronary artery disease with a stent about 15 months ago. Patient for about one has been having hematuria especially in the last 2 weeks has been far more problems with sometimes brock blood. Patient was recently started on antibiotics in the form of doxycycline by Dr. Persaud was patient's urologist. Also having some suprapubic tenderness. Has started feeling dizzy. Sometimes gets bladder spasms. Because the symptoms not getting controlled decided to come to the ER. Dr. Persaud was consulted. Denies cystoscopy. Has known kidney stones. Computed tomography scan suggestive of questionable fistula from the bladder to:. And question about diverticulitis. Patient also been having some diarrhea for quite a few days she states. No blood. Patient started and IV ceftriaxone. Antibiotics switched to cefepime and Flagyl. December 0713-[id number] hemorrhagic cystitis, mucosal tear in the posterior bladder wall. Landin catheter was placed. Brock hematuria present. Cozaar were discontinued because of renal function. Today-Landin catheter still putting out dark blood. Patient is having 2 or 3 bowel movements a day. Minimal Abdominal pain. Tolerating diet Subjective 12/11/2019 This is a pleasant 79 years old male who presents with hematuria secondary to severe hemorrhagic cystitis ,cystoscopy done on 12/07, also is been treated for UTI with cefepime and IV Flagyl, also is on antibiotics for sigmoid diverticul itis and there was suspicion of possible vesico-colonic fistula with surgery and GI and urology team on the case Last night he had a rough last Night because his Landin catheter was blocked and has to be flushed, patient needed pain medication and he was complaining from pain at the penile area (patient refused genital exam) This morning he was having some acid reflux, Protonix is admitted. He denies abdominal pain, no LLQ pain or tenderness. No nausea vomiting and is tolerated that well however he has pain on eating due to acid reflux, Protonix was added as he was not on PPI or antiacids. WBC stable at 12.5 K, looks chronic. Creatinine is improving down to 1.7, which is close to his baseline of 1.4-1.8, no fever. Physical normal saline and with 30 mL/h, IV cefepime and IV fluids 12/12/2019 Patient is awake and alert, his abdominal pain and bladder spasm was better today, he still gets some abdominal cramps now and then. Landin catheter still in place and has clear urine this morning. No other complaint no dyspnea or chest pain. He has this suprapubic tenderness today. No fever. Labs from today showing WBC stable at 12.5 K which is chronic. Hemoglobin stable at 11.2. Platelet normal. Sugar controlled. Urinary bladder biopsy showing invasive high-grade urothelial carcinoma with features suggestive of lymph/vascular invasion. Urology is on the case Patient remains on cefepime and IV Flagyl and normal saline at 130 mL/h. Patient will benefit from ECF for inpatient rehab per OT team recommendation, discussed with the patient he was hesitant but he agrees to see clinical social work aide for possible ECF placement for rehab 12/13/19 Patient underwent transurethral resection of the bladder tumor to identify its cancer in situ versus invasive cancer into the muscles. Oncology team also evaluated the patient for further treatment PET scan: No focal activity, degenerative disease. WBC is back to normal today at 10.5 K, hemoglobin stable at 11.0. Sugar is controlled and creatinine is slightly down at 1.6 and vitals are stable Patient remains on cefepime, IV Flagyl and normal saline 12/14/2019 Patient is status post cystoscopy with TURBT, today is postoperative day #1. Landin catheter is placed, patient still complaining of from some suprapubic pain and constipation. His abdominal distented so we ordered abdominal x-distended. No chest pain or dyspnea. Vital signs stable. WBC is high again at 17.6 K. Hemoglobin and sodium and potassium are stable. Creatinine went up to 3.9, currently he is on normal saline at 130 mL/h, will continue with hydration with normal saline and follow-up creatinine is no improvement then we'll consider nephrology consult. Patient had negative PET scan yesterday Objective - Vital Signs Vital signs: Vital Signs Temp 98.0 F 12/14/19 07:00 Pulse 93 12/14/19 08:00 Resp 16 12/14/19 08:00 BP 136/70 12/14/19 07:00 Pulse Ox 97 12/14/19 07:00 Intake & Output 12/13/19 12/14/19 12/14/19 18:59 06:59 18:59 Intake Total 1100 Output Total 120 500 Balance 980 -500 Weight 76.204 kg Intake: IV 900 Intake, IV Titration 200 Amount Sodium Chloride 0.9% 1, 200 000 ml @ 130 mls/hr IV . [id number] [facility] Rx#:[id number] Output: Urine 100 500 Estimated Blood Loss 20 Other: Voiding Method Indwelling Catheter Indwelling Catheter Indwelling Catheter - Exam GENERAL: The patient is alert and oriented x3, not in any acute distress. Well developed, well nourished. HEENT: Pupils are round and equally reacting to light. EOMI. No scleral icterus. No conjunctival pallor. Normocephalic, atraumatic. No pharyngeal erythema. No thyromegaly. CARDIOVASCULAR: S1 and S2 present. No murmurs, rubs, or gallops. PULMONARY: Chest is clear to auscultation, no wheezing or crackles. -ABDOMEN: Soft, nontender, nondistended, normoactive bowel sounds. No palpable organomegaly. Landin catheter is in place (patient is refusing genital exam) MUSCULOSKELETAL: No joint swelling or deformity. EXTREMITIES: No cyanosis, clubbing, or pedal edema. NEUROLOGICAL: Gross neurological examination did not reveal any focal deficits. SKIN: No rashes. no petechiae. - Labs CBC & Chem 7: 12/14/19 08:28 12/14/19 08:28 Labs: Abnormal Lab Results - Last 24 Hours (Table) 12/13/19 12/13/19 12/13/19 Range/Units 12:15 17:13 21:37 WBC (3.8-10.6) k/uL RBC (4.30-5.90) m/uL Hgb (13.0-17.5) gm/dL Hct (39.0-53.0) % Neutrophils # (1.3-7.7) k/uL Monocytes # (0-1.0) k/uL Sodium (137-145) mmol/L Chloride (98-107) mmol/L Carbon Dioxide (22-30) mmol/L BUN (9-20) mg/dL Creatinine (0.66-1.25) mg/dL POC Glucose (mg/dL) 101 H 152 H 158 H (75-99) mg/dL Calcium (8.4-10.2) mg/dL 12/14/19 12/14/19 12/14/19 Range/Units 07:06 08:28 08:28 WBC 17.6 H (3.8-10.6) k/uL RBC 3.90 L (4.30-5.90) m/uL Hgb 11.3 L (13.0-17.5) gm/dL Hct 35.4 L (39.0-53.0) % Neutrophils # 14.4 H (1.3-7.7) k/uL Monocytes # 1.1 H (0-1.0) k/uL Sodium 134 L (137-145) mmol/L Chloride 109 H (98-107) mmol/L Carbon Dioxide 16 L (22-30) mmol/L BUN 38 H (9-20) mg/dL Creatinine 3.90 H (0.66-1.25) mg/dL POC Glucose (mg/dL) 105 H (75-99) mg/dL Calcium 8.3 L (8.4-10.2) mg/dL 12/14/19 Range/Units 11:35 WBC (3.8-10.6) k/uL RBC (4.30-5.90) m/uL Hgb (13.0-17.5) gm/dL Hct (39.0-53.0) % Neutrophils # (1.3-7.7) k/uL Monocytes # (0-1.0) k/uL Sodium (137-145) mmol/L Chloride (98-107) mmol/L Carbon Dioxide (22-30) mmol/L BUN (9-20) mg/dL Creatinine (0.66-1.25) mg/dL POC Glucose (mg/dL) 118 H (75-99) mg/dL Calcium (8.4-10.2) mg/dL Assessment and Plan Assessment: - severe hemorrhagic cystitis and a posterior bladder wall mucosal tear. 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 -Left-sided hydronephrosis. -Bilateral nephrolithiasis -Possible Reflux esophagitis -Coronary artery disease with stent about 15 months ago -Diabetes mellitus type 2 -Essential hypertension -Hypothyroid -Chronic kidney disease stage III from bilateral kidney stones -Hypertensive kidney disease Plan: This is a pleasant 79 years old male who presents with hemorrhagic cystitis, sigmoid diverticulitis and possible vesico-colonic fistula. Urine biopsy showing urothelial cancer. He is a status post TURBT Continue patient on IV Flagyl and cefepime. Continue with IV fluids. Follow with surgery and urology and GI. I discussed with the patient and he is thinking about going to rehab or no Labs and medication were reviewed.. Continue same treatment. Continue with symptomatic treatment. Resume home medication. Monitor lytes and vitals. DVT and GI prophylaxis. Further recommendations of the clinical course of the patient DVT prophylaxis: no Subcutaneous heparin in the view of hematuria GI Prophylaxis: pi PT/OT: Pending Prognosis is guarded
--- NOTE | 2019-12-14 12:56 | XR ---
KUB HISTORY: Abdominal distention Frontal KUB submitted on 2 images The lung bases are clear. Patient shows postop change status post lumbar fusion at L4-5. There is ret ained contrast material within the colon from prior CT. There are air-fluid levels present without kendy wel distention. No pneumoperitoneum. The appendix fills and is normal. IMPRESSION: Findings may represent an ileus or enteritis, bowel obstruction not identified with certa inty, follow-up as indicated.
--- NOTE | 2019-12-14 15:10 | P.PN ---
Subjective Progress Note Date: 12/14/19 Principal diagnosis: Bladder Mass Status Post TURP with urology. He is recovering currently. His creatinine is increased today, receiving hydration. The biopsy of the bladder is not definitive, await finalized surgical path for diagnosis confirmation of potential urothelial Carcinoma Objective - Vital Signs Vital signs: Vital Signs Temp 98.0 F 12/14/19 07:00 Pulse 93 12/14/19 08:00 Resp 16 12/14/19 08:00 BP 136/70 12/14/19 07:00 Pulse Ox 97 12/14/19 07:00 Intake & Output 12/13/19 12/14/19 12/14/19 18:59 06:59 18:59 Intake Total 1100 Output Total 120 500 Balance 980 -500 Weight 76.204 kg Intake: IV 900 Intake, IV Titration 200 Amount Sodium Chloride 0.9% 1, 200 000 ml @ 130 mls/hr IV . Q7H42M [facility] Rx#:[id number] Output: Urine 100 500 Estimated Blood Loss 20 Other: Voiding Method Indwelling Catheter Indwelling Catheter Indwelling Catheter - Exam - Constitutional General appearance: cooperative, no acute distress - EENT Eyes: EOMI, PERRLA, dentition normal ENT: hard of hearing, NA/AT, normal oropharynx - Neck Neck: normal ROM - Respiratory Respiratory: bilateral: CTA (no increased effort) - Cardiovascular Rhythm: regular Heart sounds: normal: S1, S2 - Gastrointestinal General gastrointestinal: normal bowel sounds, soft, tenderness - Neurologic non-focal Neurologic: CNII-XII intact - Musculoskeletal Musculoskeletal: generalized weakness, strength equal bilaterally - Psychiatric Psychiatric: A&O x's 3, appropriate affect, intact judgment & insight - Labs CBC & Chem 7: 12/14/19 08:28 12/14/19 08:28 Labs: Abnormal Lab Results - Last 24 Hours (Table) 12/13/19 12/13/19 12/14/19 Range/Units 17:13 21:37 07:06 WBC (3.8-10.6) k/uL RBC (4.30-5.90) m/uL Hgb (13.0-17.5) gm/dL Hct (39.0-53.0) % Neutrophils # (1.3-7.7) k/uL Monocytes # (0-1.0) k/uL Sodium (137-145) mmol/L Chloride (98-107) mmol/L Carbon Dioxide (22-30) mmol/L BUN (9-20) mg/dL Creatinine (0.66-1.25) mg/dL POC Glucose (mg/dL) 152 H 158 H 105 H (75-99) mg/dL Calcium (8.4-10.2) mg/dL 12/14/19 12/14/19 12/14/19 Range/Units 08:28 08:28 11:35 WBC 17.6 H (3.8-10.6) k/uL RBC 3.90 L (4.30-5.90) m/uL Hgb 11.3 L (13.0-17.5) gm/dL Hct 35.4 L (39.0-53.0) % Neutrophils # 14.4 H (1.3-7.7) k/uL Monocytes # 1.1 H (0-1.0) k/uL Sodium 134 L (137-145) mmol/L Chloride 109 H (98-107) mmol/L Carbon Dioxide 16 L (22-30) mmol/L BUN 38 H (9-20) mg/dL Creatinine 3.90 H (0.66-1.25) mg/dL POC Glucose (mg/dL) 118 H (75-99) mg/dL Calcium 8.3 L (8.4-10.2) mg/dL Assessment and Plan (1) Urothelial carcinoma of bladder Current Visit: Yes Status: Acute Code(s): C67.9 - MALIGNANT NEOPLASM OF BLADDER, UNSPECIFIED SNOMED Code(s): 640610031 Plan: Assessment and Recommendations: New Diagnosis Probable High Grade Urothelial Carcinoma:Initial Biopsy not definitive - Planning on Surgical resection by Urology on 12/13/19 - Staging CTs without contrast Chest, abdomen and pelvis and bone scan have been ordered - The biopsy of the bladder is not definitive, await finalized surgical path for diagnosis confirmation of potential urothelial Carcinoma Hematuria: Improving: - Iron studies and monitoring CBC Plan: - Further recommendations after resection pathology results. - Staging exams negative at this time for distant metastatic disease.
[2019-12-14 17:01] LABS: Glucose,Whole Blood 164 mg/dL (75-99)
[2019-12-14] MEDS: CLOPIDOGREL 75 MG TAB PO SCH (20:18)
[2019-12-14 20:21] LABS: Glucose,Whole Blood 132 mg/dL (75-99)
[2019-12-14] MEDS: ATORVASTATIN 20 MG TAB PO SCH (21:06)
[2019-12-14] MEDS: INSULIN DETEMIR (LEVEMIR) 100 UNIT/ML SYR SQ SCH (21:06)
[2019-12-15] MEDS ORDERED: SENNOSIDES 8.6 MG TAB PO SCH (00:10)
[2019-12-15] MEDS: SENNOSIDES 8.6 MG TAB PO SCH ×2 (01:12→21:17)
[2019-12-15] MEDS: SODIUM CHLORIDE 0.9% 1,000 ML IV SCH ×3 (01:13→17:36)
[2019-12-15] MEDS: ACETAMINOPHEN TAB 325 MG TAB PO PRN ×2 (05:22→12:29)
[2019-12-15] MEDS: LEVOTHYROXINE 50 MCG TAB PO SCH (05:23)
[2019-12-15 06:51] LABS: Glucose,Whole Blood 79 mg/dL (75-99)
[2019-12-15] MEDS: INSULIN ASPART (NovoLOG) 100 UNIT/ML VIAL SQ SCH ×4 (07:01→21:26)
[2019-12-15] MEDS: cloNIDine HCL 0.1 MG TAB PO SCH ×2 (07:08→21:17)
[2019-12-15] MEDS: OXYBUTYNIN CHLORIDE 5 MG TAB PO SCH ×3 (07:08→21:17)
[2019-12-15] MEDS: CYANOCOBALAMIN 500 MCG TAB PO SCH (07:08)
[2019-12-15] MEDS: metroNIDAZOLE 500 MG TAB PO SCH ×3 (07:08→23:39)
[2019-12-15] MEDS: ISOSORBIDE MONONITRATE ER 30 MG TAB.ER.24H PO SCH (07:08)
[2019-12-15] MEDS: PANTOPRAZOLE 40 MG TABLET PO SCH ×2 (07:08→21:17)
[2019-12-15] MEDS: DOCUSATE 100 MG CAP PO SCH ×2 (07:08→21:17)
[2019-12-15 08:12] LABS: Basophils # (A) 0.1 k/uL (0-0.2); Basophils % (A) 0 %; Eosinophils # (A) 0.3 k/uL (0-0.7); Eosinophils % (A) 2 %; HCT 34.1 % (39.0-53.0); HGB 10.5 gm/dL (13.0-17.5); Hypochromasia Moderate; Lymphocytes # (A) 0.9 k/uL (1.0-4.8); Lymphocytes % (A) 6 %; MCH 27.6 pg (25.0-35.0); MCHC 30.7 g/dL (31.0-37.0); Mean Platelet Volume 7.7; Monocytes # (A) 1.2 k/uL (0-1.0); Monocytes % (A) 7 %; Neutrophils # (A) 13.3 k/uL (1.3-7.7); Neutrophils % (A) 81 %; Platelet Count 234 k/uL (150-450); RBC 3.79 m/uL (4.30-5.90); RDW 15.5 % (11.5-15.5); WBC 16.3 k/uL (3.8-10.6)
[2019-12-15 08:29] LABS: Calcium 8.3 mg/dL (8.4-10.2); Potassium 4.7 mmol/L (3.5-5.1)
--- NOTE | 2019-12-15 09:27 | P.PN ---
Subjective From records This is a very pleasant [address] Pola Knott. Also follows with senior sourcing manager Dr. Shannon Andres. Chronic stable medical conditions include diabetes, chronic kidney disease hypertension, coronary artery disease with a stent about 15 months ago. Patient for about one has been having hematuria especially in the last 2 weeks has been far more problems with sometimes shanice blood. Patient was recently started on antibiotics in the form of doxycycline by Dr. Persaud was patient's urologist. Also having some suprapubic tenderness. Has started feeling dizzy. Sometimes gets bladder spasms. Because the symptoms not getting controlled decided to come to the ER. Dr. Persaud was consulted. Denies cystoscopy. Has known kidney stones. Computed tomography scan suggestive of questionable fistula from the bladder to:. And question about diverticulitis. Patient also been having some diarrhea for quite a few days she states. No blood. Patient started and IV ceftriaxone. Antibiotics switched to cefepime and Flagyl. December [id number] hemorrhagic cystitis, mucosal tear in the posterior bladder wall. Landin catheter was placed. Shanice hematuria present. Cozaar were discontinued because of renal function. Today-Landin catheter still putting out dark blood. Patient is having 2 or 3 bowel movements a day. Minimal Abdominal pain. Tolerating diet Subjective 12/11/2019 This is a pleasant 79 years old male who presents with hematuria secondary to severe hemorrhagic cystitis ,cystoscopy done on 12/07, also is been treated for UTI with cefepime and IV Flagyl, also is on antibiotics for sigmoid diverticul itis and there was suspicion of possible vesico-colonic fistula with surgery and GI and urology team on the case Last night he had a rough last Night because his Landin catheter was blocked and has to be flushed, patient needed pain medication and he was complaining from pain at the penile area (patient refused genital exam) This morning he was having some acid reflux, Protonix is admitted. He denies abdominal pain, no LLQ pain or tenderness. No nausea vomiting and is tolerated that well however he has pain on eating due to acid reflux, Protonix was added as he was not on PPI or antiacids. WBC stable at 12.5 K, looks chronic. Creatinine is improving down to 1.7, which is close to his baseline of 1.4-1.8, no fever. Physical normal saline and with 30 mL/h, IV cefepime and IV fluids 12/12/2019 Patient is awake and alert, his abdominal pain and bladder spasm was better today, he still gets some abdominal cramps now and then. Landin catheter still in place and has clear urine this morning. No other complaint no dyspnea or chest pain. He has this suprapubic tenderness today. No fever. Labs from today showing WBC stable at 12.5 K which is chronic. Hemoglobin stable at 11.2. Platelet normal. Sugar controlled. Urinary bladder biopsy showing invasive high-grade urothelial carcinoma with features suggestive of lymph/vascular invasion. Urology is on the case Patient remains on cefepime and IV Flagyl and normal saline at 130 mL/h. Patient will benefit from ECF for inpatient rehab per OT team recommendation, discussed with the patient he was hesitant but he agrees to see social worker psychiatric for possible ECF placement for rehab 12/13/19 Patient underwent transurethral resection of the bladder tumor to identify its cancer in situ versus invasive cancer into the muscles. Oncology team also evaluated the patient for further treatment PET scan: No focal activity, degenerative disease. WBC is back to normal today at 10.5 K, hemoglobin stable at 11.0. Sugar is controlled and creatinine is slightly down at 1.6 and vitals are stable Patient remains on cefepime, IV Flagyl and normal saline 12/14/2019 Patient is status post cystoscopy with TURBT, today is postoperative day #1. Landin catheter is placed, patient still complaining of from some suprapubic pain and constipation. His abdominal distented so we ordered abdominal x-distended. No chest pain or dyspnea. Vital signs stable. WBC is high again at 17.6 K. Hemoglobin and sodium and potassium are stable. Creatinine went up to 3.9, currently he is on normal saline at 130 mL/h, will continue with hydration with normal saline and follow-up creatinine is no improvement then we'll consider nephrology consult. Patient had negative PET scan yesterday 12/15/2019 Patient awake and he feels little better every day, he still gets abdominal cramps and spasms and he needs his Landin catheter to be flushed, today he has r ed colored urine in his urine catheter, also his complaining of from right flank pain, no nausea vomiting, also he has abdominal distention with ileus and has a lot of gases but no bowel movement, mostly related to his pain medication and he was started on senna and Colace, we'll ask surgical team for reevaluation vitals are stable and he is afebrile.WBC still elevated with slightly less at 16.3 K, hemoglobin stable at 10.5, creatinine is up today to 4.6, electrolytes are normal,glucose low this morning at 64 and we lowered his Levemir from 20 down to 15 units. We'll check renal ultrasound in view of his right flank pain, and trending up creatinine and he status post recent cystoscopy and tumor resection with TURBT, today is postoperative day #2. he remains on cefepime and IV Flagyl (for urinary bladder cystitis and colitis) and normal saline at 130 mL/h PT/OT recommended rehab, was reluctant to go to rehab, I discussed with him and explained extensively the importance of rehab follow-up and he change his mind and agrees to go to rehab now discussed with the staff Review of systems CONSTITUTIONAL: No fever, no malaise, no fatigue. HEENT: No recent visual problems or hearing problems. Denied any sore throat. CARDIOVASCULAR: No orthopnea, PND, no palpitations, no syncope. GASTROINTESTINAL: No diarrhea, no nausea, no vomiting, no abdominal pain. Normoactive bowel sounds. NEUROLOGICAL: No headaches, no weakness, no numbness. HEMATOLOGICAL: Denies any bleeding or petechiae. MUSCULOSKELETAL/RHEUMATOLOGICAL: Denies any joint pain, swelling, or any muscle pain. Active Medications Generic Name Dose Route Start Last Admin Trade Name Freq PRN Reason Stop Dose Admin Acetaminophen 650 mg 12/05/19 17:44 12/15/19 05:22 Tylenol Tab PO 650 mg Q6HR PRN Administration Mild Pain or Fever > 100.5 Hydrocodone Bitart/Acetaminophen 1 each 12/08/19 20:11 12/14/19 19:36 [place] 5-325 PO 1 each Q6HR PRN Administration Pain Atorvastatin Calcium 20 mg 12/05/19 21:00 12/14/19 21:06 Lipitor PO 20 mg HS KAT Administration Belladonna Alkaloids/Opium 1 each 12/08/19 15:10 12/12/19 08:46 B&O Suppository RECTAL 1 each TID PRN Administration Pain Clonidine 0.1 mg 12/10/19 09:00 12/15/19 07:08 Catapres PO 0.1 mg BID [facility] Administration Clopidogrel Bisulfate 75 mg 12/05/19 21:00 12/14/19 20:18 Plavix PO Not Given HS [facility] Cyanocobalamin 500 mcg 12/06/19 09:00 12/15/19 07:08 Vitamin B-12 PO 500 mcg DAILY [facility] Administration Docusate Sodium 100 mg 12/15/19 09:00 12/15/19 07:08 Colace PO 100 mg BID [facility] Administration Sodium Chloride 1,000 mls @ 130 mls/hr 12/09/19 23:00 12/15/19 01:13 Saline 0.9% IV 130 mls/hr .Q7H42M [facility] Administration Insulin Aspart 0 unit 12/05/19 21:00 12/15/19 07:01 [facility]olog SQ [facility] Insulin Detemir 15 unit 12/15/19 21:00 Levemir SQ HS [facility] Isosorbide Mononitrate 30 mg 12/06/19 09:00 12/15/19 07:08 Imdur PO 30 mg DAILY [facility] Administration Levothyroxine Sodium 50 mcg 12/06/19 06:30 12/15/19 05:23 Synthroid PO 50 mcg 0630 [facility] Administration Lidocaine 1 patch 12/15/19 09:00 Lidoderm TOPICAL DAILY [facility] Magnesium Hydroxide 2,400 mg 12/14/19 08:06 12/14/19 08:11 Milk Of Magnesia PO 2,400 mg BID PRN Administration Constipation Metronidazole 500 mg 12/11/19 16:00 12/15/19 07:08 Flagyl PO 500 mg Q8HR [facility] Administration Morphine Sulfate 2 mg 12/08/19 20:11 12/14/19 16:55 Morphine Sulfate (Inj) IVP 2 mg Q4H PRN Administration Pain/Discomfort Naloxone HCl 0.2 mg 12/05/19 17:44 Narcan IV Q2M PRN Opioid Reversal Ondansetron HCl 4 mg 12/05/19 17:44 12/12/19 22:55 Zofran IVP 4 mg Q8HR PRN Administration Nausea And Vomiting Oxybutynin Chloride 5 mg 12/08/19 16:00 12/15/19 07:08 Ditropan PO 5 mg TID [facility] Administration Pantoprazole Sodium 40 mg 12/11/19 21:00 12/15/19 07:08 Protonix PO 40 mg BID [facility] Administration Senna 17.2 mg 12/15/19 00:15 12/15/19 01:12 Senokot PO 17.2 mg HS KAT Administration Objective - Vital Signs Vital signs: Vital Signs Temp 98.2 F 12/15/19 07:00 Pulse 78 12/15/19 07:00 Resp 18 12/15/19 08:00 BP 117/69 12/15/19 07:00 Pulse Ox 96 12/15/19 07:00 Intake & Output 12/14/19 12/15/19 12/15/19 18:59 06:59 18:59 Intake Total 296 Output Total 800 1150 Balance -800 -1150 296 Intake: Oral 296 Output: Urine 800 1150 Other: Voiding Method Indwelling Catheter Indwelling Catheter Indwelling Catheter # Voids 1 # Bowel Movements 1 1 - Exam GENERAL: The patient is alert and oriented x3, not in any acute distress. Well developed, well nourished. HEENT: Pupils are round and equally reacting to light. EOMI. No scleral icterus. No conjunctival pallor. Normocephalic, atraumatic. No pharyngeal erythema. No thyromegaly. CARDIOVASCULAR: S1 and S2 present. No murmurs, rubs, or gallops. PULMONARY: Chest is clear to auscultation, no wheezing or crackles. -ABDOMEN: Soft, nontender, nondistended, normoactive bowel sounds. No palpable organomegaly. Landin catheter is in place (patient is refusing genital exam) MUSCULOSKELETAL: No joint swelling or deformity. EXTREMITIES: No cyanosis, clubbing, or pedal edema. NEUROLOGICAL: Gross neurological examination did not reveal any focal deficits. SKIN: No rashes. no petechiae. - Labs CBC & Chem 7: 12/15/19 07:13 12/15/19 07:13 Labs: Abnormal Lab Results - Last 24 Hours (Table) 12/14/19 12/14/19 12/14/19 Range/Units 11:35 16:59 20:19 WBC (3.8-10.6) k/uL RBC (4.30-5.90) m/uL Hgb (13.0-17.5) gm/dL Hct (39.0-53.0) % MCHC (31.0-37.0) g/dL Neutrophils # (1.3-7.7) k/uL Lymphocytes # (1.0-4.8) k/uL Monocytes # (0-1.0) k/uL Chloride (98-107) mmol/L Carbon Dioxide (22-30) mmol/L BUN (9-20) mg/dL Creatinine (0.66-1.25) mg/dL Glucose (74-99) mg/dL POC Glucose (mg/dL) 118 H 164 H 132 H (75-99) mg/dL Calcium (8.4-10.2) mg/dL 12/15/19 12/15/19 Range/Units 07:13 07:13 WBC 16.3 H (3.8-10.6) k/uL RBC 3.79 L (4.30-5.90) m/uL Hgb 10.5 L (13.0-17.5) gm/dL Hct 34.1 L (39.0-53.0) % MCHC 30.7 L (31.0-37.0) g/dL Neutrophils # 13.3 H (1.3-7.7) k/uL Lymphocytes # 0.9 L (1.0-4.8) k/uL Monocytes # 1.2 H (0-1.0) k/uL Chloride 111 H (98-107) mmol/L Carbon Dioxide 16 L (22-30) mmol/L BUN 42 H (9-20) mg/dL Creatinine 4.60 H (0.66-1.25) mg/dL Glucose 64 L (74-99) mg/dL POC Glucose (mg/dL) (75-99) mg/dL Calcium 8.3 L (8.4-10.2) mg/dL Assessment and Plan Assessment: - severe hemorrhagic cystitis and a posterior bladder wall mucosal tear. 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 -Left-sided hydronephrosis. -Bilateral nephrolithiasis -Possible Reflux esophagitis -Coronary artery disease with stent about 15 months ago -Diabetes mellitus type 2 -Essential hypertension -Hypothyroid -Chronic kidney disease stage III from bilateral kidney stones -Hypertensive kidney disease Plan: This is a pleasant 79 years old male who presents with hemorrhagic cystitis, sigmoid diverticulitis and possible vesico-colonic fistula. Urine biopsy s howing urothelial cancer. He is a status post TURBT Continue patient on IV Flagyl and cefepime. Continue with IV fluids. Follow with surgery and urology and GI. also we will check renal ultrasound I discussed with the patient and he is agreeing to go to rehab Labs and medication were reviewed.. Continue same treatment. Continue with symptomatic treatment. Resume home medication. Monitor lytes and vitals. DVT and GI prophylaxis. Further recommendations of the clinical course of the patie nt DVT prophylaxis: no Subcutaneous heparin in the view of hematuria GI Prophylaxis: pi PT/OT: Pending Prognosis is guarded
[2019-12-15] MEDS: LIDOCAINE 5% PATCH TOPICAL SCH (09:39)
--- NOTE | 2019-12-15 09:55 | US ---
EXAMINATION TYPE: US renals and bladder DATE OF EXAM: 12/15/2019 COMPARISON: CT 2019 CLINICAL HISTORY: high creatine . UTI, pelvic pain, hematuria, elevated creatinine EXAM MEASUREMENTS: Right Kidney: 10.5 x 6.3 x 6.4 cm Left Kidney: 10.9 x 5.8 x 5.0 cm Right Kidney: dilated renal pelvis, cortical thinning, 0.4cm echogenic focus Left Kidney: mild hydronephrosis, cortical thinning, 0.6cm echogenic focus Bladder: not fully distended, skelton catheter Bilateral Jets seen: no There is no evidence for hydronephrosis at this point in time. No masses are identified. The urin spike bladder is anechoic. Bilateral ureteral jets are seen. IMPRESSION: 1. Renal parenchymal thinning. 2. Hydronephrosis as noted above. 3. Nephrolithiasis.
--- NOTE | 2019-12-15 12:07 | CDI ---
Documentation Clarification Form Date: 12/15/2019 11:56:38 AM From: Desiree BrookeHutchinsJOHN alanis, CCDS Admit Date: 12/05/2019 03:36:00 PM Patient Name: Edwin Sorensen Visit Number: [id number] Discharge Date: ATTENTION: The Clinical Documentation Specialists (CDI) and [facility] Coding Staff appreciate your assistance in clarifying documentation. Please respond to the clarification below the line at the bottom and electronically sign. The CDI & [facility] Coding staff will review the response and follow-up if needed. Please note: Queries are made part of the Legal Health Record. If you have any questions, please contact the author of this message via ITS. Dr. Sosa E. Sheet: Per the 12/14 Attending Progress Note: "... has abdominal distention with ileus..." Patients Admitting Diagnosis: Hematuria, Associated bladder spasm, history of kidney stones. 12/07 Preoperative Diagnosis: Hemorrhagic Cystitis 12/07 Post-Operative Diagnosis: same r/o carcinoma in situ 12/07 Procedure performed: Cystoscopy, evacuation of clot, biopsy of bladder, urine cytology. 12/12 Preoperative Diagnosis: Bladder Cancer 12/12 Postoperative Diagnosis: same 12/12 Procedure performed: TURBT History/Risk Factors: Kidney Stones, Hypertensive CKD III from Diabetic Nephropathy & Nephrosclerosis, DM II, Hypertension. Clinical Indicators: Patient presented to the ED on 12/04 with worsening hematuria & bladder spasms. On 12/13, the patient continued to have suprapubic pain & abdominal distention. KUB7/16: Ileus Treatment: Procedures as above. IV Flagyl, IV Labetalol, IV Fentanyl, IV Dilaudid. In order to accurately reflect this patients severity of illness, please clarify if the Ileus: Has been ruled out Is a complication of surgical procedure Is an expected outcome of the surgical procedure Is related to co-morbid condition(s) of Other please specify: Unable to determine (Last Revision: July 2019) multifactorial, mainly secondary to pain medication, renal problem could be contributing as well MTDD
[2019-12-15 12:15] LABS: Glucose,Whole Blood 112 mg/dL (75-99)
--- NOTE | 2019-12-15 14:41 | P.PN ---
<Fabienne Garcia - Last Filed: 12/15/19 20:00> Subjective Progress Note Date: 12/15/19 Principal diagnosis: Bladder Mass Renal Function significantly increased. Prior imaging revealed multiple renal calculi and moderate left hydronephrosis. He is status post TUPT with positive path for High grade muscle invasive Urothelial carcinoma. He will need Cystectomy moving forward with options of adjuvant chemotherapy, although renal function will need to be stabilized to have systemic options. Nephrology consulted. Objective - Vital Signs Vital signs: Vital Signs Temp 98 F 12/15/19 13:39 Pulse 84 12/15/19 13:39 Resp 18 12/15/19 13:39 BP 159/73 12/15/19 13:39 Pulse Ox 98 12/15/19 13:39 Intake & Output 12/14/19 12/15/19 12/15/19 18:59 06:59 18:59 Intake Total 1276 Output Total 800 1150 700 Balance -800 -1150 576 Intake: Intake, IV Titration 780 Amount Sodium Chloride 0.9% 1, 780 000 ml @ 130 mls/hr IV . [id number] [facility] Rx#:[id number] Oral 496 Output: Urine 800 1150 700 Coude 700 Other: Voiding Method Indwelling Catheter Indwelling Catheter Indwelling Catheter # Voids 1 1 # Bowel Movements 1 1 - Exam - Constitutional General appearance: cooperative, no acute distress - EENT Eyes: EOMI, PERRLA, dentition normal ENT: hard of hearing, NA/AT, normal oropharynx - Neck Neck: normal ROM - Respiratory Respiratory: bilateral: CTA (no increased effort) - Cardiovascular Rhythm: regular Heart sounds: normal: S1, S2 - Gastrointestinal General gastrointestinal: normal bowel sounds, soft, tenderness - Neurologic non-focal Neurologic: CNII-XII intact - Musculoskeletal Musculoskeletal: generalized weakness, strength equal bilaterally - Psychiatric Psychiatric: A&O x's 3, appropriate affect, intact judgment & insight - Labs CBC & Chem 7: 12/15/19 07:13 12/15/19 07:13 Labs: Abnormal Lab Results - Last 24 Hours (Table) 12/14/19 12/14/19 12/15/19 Range/Units 16:59 20:19 07:13 WBC 16.3 H (3.8-10.6) k/uL RBC 3.79 L (4.30-5.90) m/uL Hgb 10.5 L (13.0-17.5) gm/dL Hct 34.1 L (39.0-53.0) % MCHC 30.7 L (31.0-37.0) g/dL Neutrophils # 13.3 H (1.3-7.7) k/uL Lymphocytes # 0.9 L (1.0-4.8) k/uL Monocytes # 1.2 H (0-1.0) k/uL Chloride (98-107) mmol/L Carbon Dioxide (22-30) mmol/L BUN (9-20) mg/dL Creatinine (0.66-1.25) mg/dL Glucose (74-99) mg/dL POC Glucose (mg/dL) 164 H 132 H (75-99) mg/dL Calcium (8.4-10.2) mg/dL 12/15/19 12/15/19 Range/Units 07:13 12:11 WBC (3.8-10.6) k/uL RBC (4.30-5.90) m/uL Hgb (13.0-17.5) gm/dL Hct (39.0-53.0) % MCHC (31.0-37.0) g/dL Neutrophils # (1.3-7.7) k/uL Lymphocytes # (1.0-4.8) k/uL Monocytes # (0-1.0) k/uL Chloride 111 H (98-107) mmol/L Carbon Dioxide 16 L (22-30) mmol/L BUN 42 H (9-20) mg/dL Creatinine 4.60 H (0.66-1.25) mg/dL Glucose 64 L (74-99) mg/dL POC Glucose (mg/dL) 112 H (75-99) mg/dL Calcium 8.3 L (8.4-10.2) mg/dL Assessment and Plan (1) Urothelial carcinoma of bladder Current Visit: Yes Status: Acute Code(s): C67.9 - MALIGNANT NEOPLASM OF BLADDER, UNSPECIFIED SNOMED Code(s): 608195630 Plan: Assessment and Recommendations: New Diagnosis High Grade Urothelial Carcinoma: - Status Post TURPT by Urology on 12/13/19 - Staging CTs without contrast Chest, abdomen and pelvis and bone scan do not reveal metastatic disease. Hematuria: Improving: - Iron studies and monitoring CBC Acute Renal Failure: - Nephrology COnsult - Prior imaging with multiple stones and left hydronephrosis - Ultrasound of kidneys Plan: - POsitive path for muscular invasion high grade urothelial, no evedence of distant mets. Plan cystectomy and likely recommend systemic adjuvant treatment Physician Attest: I have completed full history and physical and agree with above dictation, dictated as a scribe <Madeline,Maciej - Last Filed: 12/17/19 01:33> Objective - Vital Signs Vital signs: Vital Signs Temp 98.6 F 12/16/19 19:00 Pulse 85 12/16/19 19:00 Resp 18 12/16/19 23:59 BP 149/69 12/16/19 19:00 Pulse Ox 97 12/16/19 19:00 Intake & Output 12/16/19 12/16/19 12/17/19 06:59 18:59 06:59 Intake Total 200 Output Total 2300 1025 825 Balance -2100 1025 825 Intake: Oral 200 Output: Urine 2300 1025 825 Coude 550 Other: Voiding Method Indwelling Catheter Indwelling Catheter Indwelling Catheter - Labs CBC & Chem 7: 12/16/19 09:48 12/16/19 09:48 Labs: Abnormal Lab Results - Last 24 Hours (Table) 12/16/19 12/16/19 12/16/19 Range/Units 07:18 09:48 09:48 WBC 13.4 H (3.8-10.6) k/uL RBC 3.57 L (4.30-5.90) m/uL Hgb 9.8 L (13.0-17.5) gm/dL Hct 32.7 L (39.0-53.0) % MCHC 30.0 L (31.0-37.0) g/dL Neutrophils # (Manual) 10.85 H (1.3-7.7) k/uL Monocytes # (Manual) 1.34 H (0-1.0) k/uL Metamyelocytes # (Man) 0.13 H (0) k/uL Sodium 136 L (137-145) mmol/L Chloride 113 H (98-107) mmol/L Carbon Dioxide 15 L (22-30) mmol/L BUN 46 H (9-20) mg/dL Creatinine 4.56 H (0.66-1.25) mg/dL Glucose 140 H (74-99) mg/dL POC Glucose (mg/dL) 149 H (75-99) mg/dL Calcium 8.2 L (8.4-10.2) mg/dL 12/16/19 12/16/19 12/16/19 Range/Units 11:29 16:46 19:55 WBC (3.8-10.6) k/uL RBC (4.30-5.90) m/uL Hgb (13.0-17.5) gm/dL Hct (39.0-53.0) % MCHC (31.0-37.0) g/dL Neutrophils # (Manual) (1.3-7.7) k/uL Monocytes # (Manual) (0-1.0) k/uL Metamyelocytes # (Man) (0) k/uL Sodium (137-145) mmol/L Chloride (98-107) mmol/L Carbon Dioxide (22-30) mmol/L BUN (9-20) mg/dL Creatinine (0.66-1.25) mg/dL Glucose (74-99) mg/dL POC Glucose (mg/dL) 133 H 171 H 176 H (75-99) mg/dL Calcium (8.4-10.2) mg/dL Microbiology - Last 24 Hours (Table) 12/15/19 16:30 Urine Culture - Preliminary Urine,Voided Assessment and Plan Plan: Add ( and clarification): As above. Path discussed with pt. He is confirmed to have muscle invasive disease , with no evidence of metastases. Ideally he should be treated with cystectomy, with systemic therapy, given preferably neoadjuvantly with a yocha dehe containing combination. However the pt is currently not a good candidate for either due to worsening Cr. Nephrology consulted. Urology following. Await their recommendations
[2019-12-15] MEDS: MORPHINE SULFATE 2 MG/ML SYRINGE IVP PRN ×2 (15:49→21:16)
[2019-12-15 17:00] LABS: Appearance,Urine Cloudy (Clear); Bacteria,Urine Few /hpf; Bilirubin,Urine Negative (Negative); Blood,Urine Large (Negative); Color,Urine Yellow; Glucose,Urine (UA) Negative (Negative); Ketones,Urine Negative (Negative); Leukocyte Esterase,Urine Large (Negative); Mucus,Urine Rare /hpf; Nitrite,Urine Negative (Negative); PH, Urine 5.5 (5.0-8.0); Protein,Urine 1+ (Negative); RBC,Urine 70 /hpf (0-5); Specific Gravity,Urine 1.007 (1.001-1.035); Urobilinogen,Urine <2.0 mg/dL (<2.0); WBC,Urine >182 /hpf (0-5)
[2019-12-15 17:27] LABS: Glucose,Whole Blood 167 mg/dL (75-99)
--- NOTE | 2019-12-15 19:48 | P.PN ---
Progress Note - Text Progress Note Date: 12/15/19 The patient is 2 days post transurethral resection of the trigone of his bladder performed for further staging of his bladder cancer. He has less abdominal pain and bladder spasms. His urine is clearer than yesterday and minimal if any blood clots are present. His creatinine prior to the transurethral resection was 1.63. Yesterday his creatinine was 3.9 and today it is 4.66. He was somewhat oliguric immediately following the transurethral resection but his urine output has improved considerably today. Renal ultrasound was performed earlier today and was reviewed by me. He has mild right hydronephrosis and moderate left hydronephrosis. This is essentially the same as was noted on his preoperative CT scans without IV contrast. A KUB was obtained yesterday but there was no evidence of a calculus along the expected course of the right or left ureter. In addition to the above, the patient's path report has confirmed muscle invasive high-grade urothelial carcinoma. The source of the patient's worsening renal function may be a combination of invasive cancer involving the trigone (as the patient had left hydroureteronephrosis on his original CT scan) and he may also have some element of edema in the immediate postop period related to the transurethral resection. At this time I feel that further observation is reasonable as the patient is not oliguric. Unfortunately due to the recent surgery it will be extremely difficult to locate either the right or left ureteral orifices for the purpose of double-J catheter placement. If the patient's renal function continues to deteriorate then percutaneous nephrostomy placement may need to be considered. Further treatment of the patient's bladder cancer will clearly need to be deferred until the patient's renal function has stabilized and hopefully improved.
[2019-12-15 21:02] LABS: Glucose,Whole Blood 178 mg/dL (75-99)
[2019-12-15] MEDS: INSULIN DETEMIR (LEVEMIR) 100 UNIT/ML SYR SQ SCH (21:16)
[2019-12-15] MEDS: ATORVASTATIN 20 MG TAB PO SCH (21:17)
[2019-12-15] MEDS: CLOPIDOGREL 75 MG TAB PO SCH (21:17)
[2019-12-16] MEDS: SODIUM CHLORIDE 0.9% 1,000 ML IV SCH ×2 (01:00→17:48)
[2019-12-16] MEDS: MORPHINE SULFATE 2 MG/ML SYRINGE IVP PRN ×4 (02:14→23:19)
[2019-12-16] MEDS: LEVOTHYROXINE 50 MCG TAB PO SCH (05:53)
[2019-12-16] MEDS: ACETAMINOPHEN TAB 325 MG TAB PO PRN (06:00)
[2019-12-16 07:20] LABS: Glucose,Whole Blood 149 mg/dL (75-99)
[2019-12-16] MEDS: metroNIDAZOLE 500 MG TAB PO SCH ×3 (08:17→23:14)
[2019-12-16] MEDS: INSULIN ASPART (NovoLOG) 100 UNIT/ML VIAL SQ SCH ×4 (08:17→20:39)
[2019-12-16] MEDS: cloNIDine HCL 0.1 MG TAB PO SCH ×2 (08:17→20:39)
[2019-12-16] MEDS: LIDOCAINE 5% PATCH TOPICAL SCH ×2 (08:18→11:54)
[2019-12-16] MEDS: ISOSORBIDE MONONITRATE ER 30 MG TAB.ER.24H PO SCH (08:18)
[2019-12-16] MEDS: OXYBUTYNIN CHLORIDE 5 MG TAB PO SCH ×3 (08:18→20:38)
[2019-12-16] MEDS: CYANOCOBALAMIN 500 MCG TAB PO SCH (08:18)
[2019-12-16] MEDS: DOCUSATE 100 MG CAP PO SCH ×2 (08:18→20:38)
[2019-12-16] MEDS: HYDROcodone/APAP 5-325MG 1 EACH TAB PO PRN (08:18)
[2019-12-16] MEDS: PANTOPRAZOLE 40 MG TABLET PO SCH ×2 (08:18→20:37)
--- NOTE | 2019-12-16 09:52 | P.CONS ---
History of Present Illness - Chief Complaint Medical debility - History of Present Illness I had the opportunity to see patient for inpatient rehab consultation with regard to medical debility. He was admitted to [facility] December 04 history of bladder cancer and gross hematuria. Seen by Dr. Correa and Dr. Rojas. History of declined cystoscopy noted. Seen by Dr. Bryant who notes history of fistula. Seen by Fabienne Garcia who notes urothelial cancer high-grade. Computed tomography scan of chest and abdomen demonstrates left hydronephrosis, bilateral renal lithiasis, diverticulosis without diverticulitis and fatty liver infiltrate. Bone scan with degenerative uptake C-spine and right MTP joints. KUB with possible ileus. Renal ultrasound with hydronephrosis and lithiasis. PT reports supervision functional mobility and gait 80 feet with roller walker but moves slow and complains of back pain with postural movement. OT reports supervision for upper dressing toileting and functional mobility, moderate assistance for lower dressing and minimal assistance for bathing. Previous functional history as elicited from patient: 79-year-old right-handed white male who is single lives in one floor home alone. Retired. Describes independent with own cooking, laundry, driving, standing shower and gait without device. PMD Dr. Chacon. Denies tobacco or alcohol. Family history: Patient adopted but adoptive father was a smoker. Review of Systems Review of systems: ENT: Denies sneezes or discharge. Eyes: Denies discharge or photophobia. Cardiac: Denies chest pain or palpitation. Pulmonary: Denies cough or shortness of breath. Gastrointestinal: Denies nausea, emesis, constipation, diarrhea. Genitourinary: Still with mild dysuria. Musculoskeletal: Denies muscle or bone aches. Neurologic: Lower extremity weakness. Endocrine: Denies shakes or sweats. Oncology: Denies cancers. Dermatologic: Denies rash, itching, pruritus. ALLERGY/immunology: Denies sneezes, rashes. Past Medical History Past Medical History: Chest Pain / Angina, Diabetes Mellitus, Hypertension Additional Past Medical History / Comment(s): shortness of breath History of Any Multi-Drug Resistant Organisms: None Reported Past Surgical History: Back Surgery Additional Past Surgical History / Comment(s): hand surgery. back surgery with 4 screws and 2 rods Past Anesthesia/Blood Transfusion Reactions: No Reported Reaction Additional Past Anesthesia/Blood Transfusion Reaction / Comm: son allergic to on e type of anesthesia Past Psychological History: No Psychological Hx Reported Past Alcohol Use History: None Reported Additional Past Alcohol Use History / Comment(s): quit 1990 smoked 30+ years on and off Past Drug Use History: None Reported - Past Family History Mother Family Medical History: Unable to Obtain Additional Family Medical History / Comment(s): adopted Medications and Allergies Home Medications Medication Instructions Recorded Confirmed Type Ascorbic Acid [Vitamin C] 500 mg PO DAILY 03/31/18 12/05/19 History Cholecalciferol [Vitamin D3] 1,000 unit PO DAILY 03/31/18 12/05/19 History Cyanocobalamin [Vitamin B-12] 500 mcg PO DAILY 03/31/18 12/05/19 History Losartan Potassium 50 mg PO DAILY 03/31/18 12/05/19 History Simvastatin [Zocor] 40 mg PO HS 03/31/18 12/05/19 History Insulin Aspart [NovoLOG] See Protocol SQ TID-W/MEALS 08/01/18 12/05/19 History quiNINE SULFATE 324 mg PO HS 08/01/18 12/05/19 History Insulin Glargine [Lantus] 20 unit SQ HS 10/10/19 12/05/19 History Isosorbide Mononitrate [Isosorbide 30 mg PO DAILY 10/10/19 12/05/19 History Mononitrate ER] Levothyroxine Sodium [Synthroid] 50 mcg PO DAILY 10/10/19 12/05/19 History Clopidogrel [Plavix] 75 mg PO HS 12/05/19 12/05/19 History Doxycycline Hyclate [Vibramycin] 100 mg PO BID 12/05/19 12/05/19 History Allergies Allergy/AdvReac Type Severity Reaction Status Date / Time ciprofloxacin [From Cipro] Allergy Swelling Verified 12/05/19 16:42 propoxyphene [From Darvon] Allergy Hallucinati Verified 12/05/19 16:42 ons Iodinated Contrast Media AdvReac Dyspnea Verified 12/05/19 16:42 [Iodinated Contrast- Oral and IV Dye] Physical Exam Vitals: Vital Signs Temp Pulse Resp BP Pulse Ox 12/16/19 07:37 103 H 20 12/16/19 07:00 97.8 F 55 L 18 150/78 98 12/16/19 01:00 98.3 F 103 H 20 165/73 98 12/15/19 19:22 97.9 F 89 18 171/83 98 12/15/19 16:00 18 12/15/19 13:39 98 F 84 18 159/73 98 Intake and Output 12/15/19 12/16/19 12/16/19 22:59 06:59 14:59 Intake Total 100 100 Output Total 2300 Balance 100 -2200 Intake: Oral 100 100 Output: Urine 2300 Coude 550 Other: Voiding Method Indwelling Catheter Indwelling Catheter Skin: Atrophic, intact. General: Overweight build and comfortable appearance. Head: Normocephalic, atraumatic. Eyes: Symmetric. Pupils equal round. Ears: Symmetric. Hearing within normal limits. Mouth: Clear. Neck: Supple. Carotid without bruit. Cardiac: Regular rate and rhythm. Lungs: Clear anteriorly and posteriorly. Abdomen: Soft active nontender. Extremities: Normal tone. Neurological: Mental status: Alert, cooperative, pleasant. Cranial nerves: Symmetric facial tone and trapezius. Motor: Active movement both arms. Poor movement legs. Sensation: Intact throughout. DTRs: Symmetric and equal throughout. Mobility: Requires physical assistance for transfer from bed to Noemi chair. Results CBC & Chem 7: 12/15/19 07:13 12/15/19 07:13 Labs: Abnormal Lab Results - Last 24 Hours (Table) 12/15/19 12/15/19 12/15/19 Range/Units 12:11 16:30 17:25 POC Glucose (mg/dL) 112 H 167 H (75-99) mg/dL Urine Protein 1+ H (Negative) Urine Blood Large H (Negative) Ur Leukocyte Esterase Large H (Negative) Urine RBC 70 H (0-5) /hpf Urine WBC >182 H (0-5) /hpf Urine WBC Clumps Many H (None) /hpf Urine Bacteria Few H (None) /hpf Urine Mucus Rare H (None) /hpf 12/15/19 12/16/19 Range/Units 20:47 07:18 POC Glucose (mg/dL) 178 H 149 H (75-99) mg/dL Urine Protein (Negative) Urine Blood (Negative) Ur Leukocyte Esterase (Negative) Urine RBC (0-5) /hpf Urine WBC (0-5) /hpf Urine WBC Clumps (None) /hpf Urine Bacteria (None) /hpf Urine Mucus (None) /hpf Microbiology - Last 24 Hours (Table) 12/15/19 16:30 Urine Culture - Preliminary Urine,Voided Assessment and Plan (1) UTI (urinary tract infection) Current Visit: Yes Status: Acute Code(s): N39.0 - URINARY TRACT INFECTION, SITE NOT SPECIFIED SNOMED Code(s): 27092931 (2) Urothelial carcinoma of bladder Current Visit: Yes Status: Acute Code(s): C67.9 - MALIGNANT NEOPLASM OF BLADDER, UNSPECIFIED SNOMED Code(s): 506556285 Plan: Impression: 1. Medical debility. 2. 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 3. Urothelial cancer. 4. Diabetes. 5. Hypertension. 6. History of angina. Comments and plan: At this time PT and OT are ongoing. PT notes really supervision for functional debility and gait. At this time, patient does not have multidisciplinary need for possible inpatient rehab. Will continue to follow closely with yourself though for possible deterioration.
[2019-12-16 10:39] LABS: Calcium 8.2 mg/dL (8.4-10.2); Potassium 5.1 mmol/L (3.5-5.1)
--- NOTE | 2019-12-16 11:19 | P.PN ---
Progress Note - Text Progress Note Date: 12/16/19 The patient is afebrile. He continues to have lower abdominal discomfort from bladder spasms but says that this continues to get less and less. His urine is relatively clear and has not required catheter irrigation. BUN/creatinine are essentially the same as yesterday at 46/4.56. The rise in BUN and creatinine may be from some temporary edema in the trigone related to the transurethral resection performed earlier in the week. If the BUN and creatinine have improved by tomorrow it may be possible to discharge the patient either tomorrow or Wednesday with a urethral catheter. I reviewed the patient's path report with him. He is aware that the optimal treatment for him due to high-grade stage T2 cancer would be neoadjuvant chemotherapy followed by radical cystectomy and probably urinary diversion. An alternative would be chemotherapy and radiation therapy but in view of the diffuse cancer within his bladder and a small bladder capacity this would not be a good option.
[2019-12-16 11:31] LABS: Glucose,Whole Blood 133 mg/dL (75-99)
[2019-12-16 11:38] LABS: HCT 32.7 % (39.0-53.0); HGB 9.8 gm/dL (13.0-17.5); Hypochromasia Marked; MCH 27.5 pg (25.0-35.0); MCV 91.7 fL (80.0-100.0); Platelet Count 245 k/uL (150-450); RBC 3.57 m/uL (4.30-5.90); RDW 15.5 % (11.5-15.5); WBC 13.4 k/uL (3.8-10.6)
[2019-12-16 13:03] LABS: Eosinophils # (M) 0.13 k/uL (0-0.7); Lymphocytes # (M) 1.21 k/uL (1.0-4.8); Metamyelocytes # (M) 0.13 k/uL (0); Metamyelocytes % 1 %; Monocytes # (M) 1.34 k/uL (0-1.0); Neutrophils # (M) 10.85 k/uL (1.3-7.7); Neutrophils % (M) 81 %; Nucleated Red Blood Cells 0 /100 WBC (0-0); Total Cells Counted 200
--- NOTE | 2019-12-16 13:29 | XR ---
EXAMINATION TYPE: XR KUB , 2 VIEWS DATE OF EXAM ORDERED: 12/16/2019 HISTORY: f/u. COMPARISON: Previous study dated 12/14/2019. FINDINGS: There is blunting of the left CP angle and I could not exclude a small left-sided effusion . The lung bases are otherwise clear. Within the abdomen, is been a previous interpedicular fusion at L4 and L5. IMPRESSION: FINDINGS CONSISTENT WITH MILD, GENERALIZED ILEUS. NOTE IS MADE OF A WORSENING LEFT-SIDED EFFUSION.
--- NOTE | 2019-12-16 14:06 | P.NPCON ---
History of Present Illness - Reason for Consult Consult date: 12/16/19 acute renal failure - Chief Complaint Abdominal discomfort. - History of Present Illness 79-year-old gentleman with history of bladder cancer follows with urology. He is having abdominal discomfort for a month with dysuria and hematuria was taking oral antibiotics, no relief came to the hospital on 12/05/2019. Creatinine was at baseline 1.5-1.7 MG per DL. Initial CAT scan showed mild to moderate left hydronephrosis. While in the hospital creatinine remained stable, started rising on 12/13/2019 to 3.5 MG per DL, 4.7 MG per DL yesterday and 4.5 MG per DL today. Good urine output of 3 L in the last 24 hours. Urine still has bloody sediment. Is currently on IV fluids at 1:30 ML's an hour. Some documented hypertensive followed by hypotensive episodes on 714 and 12/13/2019. No nausea vomiting diarrhea. No recent contrast studies or NSAID use. Recent ultrasound showed bilateral hydronephrosis. He had TURP earlier this week. Review of Systems Constitutional: Reports as per HPI Past Medical History Past Medical History: Chest Pain / Angina, Diabetes Mellitus, Hypertension Additional Past Medical History / Comment(s): shortness of breath History of Any Multi-Drug Resistant Organisms: None Reported Past Surgical History: Back Surgery Additional Past Surgical History / Comment(s): hand surgery. back surgery with 4 screws and 2 rods Past Anesthesia/Blood Transfusion Reactions: No Reported Reaction Additional Past Anesthesia/Blood Transfusion Reaction / Comment(s): son allergic to one type of anesthesia Past Psychological History: No Psychological Hx Reported Past Alcohol Use History: None Reported Additional Past Alcohol Use History / Comment(s): quit 1990 smoked 30+ years on and off Past Drug Use History: None Reported - Past Family History Mother Family Medical History: Unable to Obtain Additional Family Medical History / Comment(s): adopted Medications and Allergies Home Medications Medication Instructions Recorded Confirmed Type Ascorbic Acid [Vitamin C] 500 mg PO DAILY 03/31/18 12/05/19 History Cholecalciferol [Vitamin D3] 1,000 unit PO DAILY 03/31/18 12/05/19 History Cyanocobalamin [Vitamin B-12] 500 mcg PO DAILY 03/31/18 12/05/19 History Losartan Potassium 50 mg PO DAILY 03/31/18 12/05/19 History Simvastatin [Zocor] 40 mg PO HS 03/31/18 12/05/19 History Insulin Aspart [NovoLOG] See Protocol SQ TID-W/MEALS 08/01/18 12/05/19 History quiNINE SULFATE 324 mg PO HS 08/01/18 12/05/19 History Insulin Glargine [Lantus] 20 unit SQ HS 10/10/19 12/05/19 History Isosorbide Mononitrate [Isosorbide 30 mg PO DAILY 10/10/19 12/05/19 History Mononitrate ER] Levothyroxine Sodium [Synthroid] 50 mcg PO DAILY 10/10/19 12/05/19 History Clopidogrel [Plavix] 75 mg PO HS 12/05/19 12/05/19 History Doxycycline Hyclate [Vibramycin] 100 mg PO BID 12/05/19 12/05/19 History Allergies Allergy/AdvReac Type Severity Reaction Status Date / Time ciprofloxacin [From Cipro] Allergy Swelling Verified 12/05/19 16:42 propoxyphene [From Darvon] Allergy Hallucinati Verified 12/05/19 16:42 ons Iodinated Contrast Media AdvReac Dyspnea Verified 12/05/19 16:42 [Iodinated Contrast- Oral and IV Dye] Physical Exam Vitals: Vital Signs Temp Pulse Resp BP Pulse Ox 12/16/19 07:37 103 H 20 12/16/19 07:00 97.8 F 55 L 18 150/78 98 12/16/19 01:00 98.3 F 103 H 20 165/73 98 12/15/19 19:22 97.9 F 89 18 171/83 98 12/15/19 16:00 18 Intake and Output 12/15/19 12/16/19 12/16/19 22:59 06:59 14:59 Intake Total 100 100 Output Total 2300 Balance 100 -2200 Intake: Oral 100 100 Output: Urine 2300 Coude 550 Other: Voiding Method Indwelling Catheter Indwelling Catheter No acute distress Decreased breath sounds S1-S2 heard Abdominal distention Landin catheter Edema Results - Lab Results Most recent lab results Calcium 8.2 mg/dL (8.4-10.2) L 12/16/19 09:48 Magnesium 2.2 mg/dL (1.6-2.3) 12/05/19 14:10 12/16/19 09:48 12/16/19 09:48 Assessment and Plan Assessment: #1 nonoliguric acute kidney injury multifactorial possibilities include -Normotensive hemodynamic ATN with rapid fluctuation in blood pressure -Obstructive uropathy with bilateral hydronephrosis -Doubt abdominal compartment syndrome with tense abdomen. #2 hypervolemia with ascites and edema #3 hypervolemic hyponatremia #4 chronic kidney disease stage III suspect nephrosclerosis with a baseline creatinine of 1.6-1.8 MG per DL. #5 hypertension with chronic kidney disease currently uncontrolled. #6 hematuria with pyuria secondary to complicated UTI from underlying bladder cancer #7 metabolic acidosis from acute kidney injury #8 mild hyperkalemia Plan: #1 stop IV fluids #2 add Lasix 40 mg IV twice a day. Anticipate improvement in blood pressure, volume and electrolytes with diuresis. #3 labs in the morning #4 avoid nephrotoxic agents and hypotensive episodes.
[2019-12-16] MEDS: FUROSEMIDE 10 MG/ML 4 ML VIAL IV SCH ×2 (16:20→20:39)
[2019-12-16 16:47] LABS: Glucose,Whole Blood 171 mg/dL (75-99)
--- NOTE | 2019-12-16 17:25 | P.PN ---
Subjective Progress Note Date: 12/16/19 Principal diagnosis: Severe hemorrhagic cystitis, high-grade urothelial carcinoma Mr. Sorensen is an 79-year-old male with a past medical history of diabetes, chronic kidney disease hypertension, coronary artery disease with a stent about 15 months ago, admitted for ongoing hematuria. He was being treated with antibiotics for UTI as outpatient, but because of uncontrolled symptoms he has been hospitalized. Eventually the patient had cystoscopy done on December 07 showing severe hematologic cystitis, mucosal tear in the posterior bladder wall and bladder biopsy showing invasive high-grade urothelial carcinoma with features suggestive of lymph/vascular invasion. Patient had staging CTs done of the abdomen, chest, pelvis and bone scan that did not reveal metastatic disease. Urology, nephrology and oncology on board and following the patient closely. On 12/16/2019 - no acute events reported by nursing staff. Patient says that he still continues to have pain in his lower abdomen that has been radiating to the back. He has a Landin's catheter in place showing pinkish urine. Patient denies having any fevers chills or rigors. No chest pain or palpitations. No cough or difficulty in breathing. No epigastric pain, nausea vomiting or diarrhea. Patient complains of abdominal bloating. Patient's vitals have been stable and saturating at 97% on room air, heart rate in 90s to 100s. On reviewing the patient's labs white count is slightly lower from yesterday to 13.4, hemoglobin stable around 10, electrolytes within normal limits. Creatinine slowly trending up and today it is at 4.56. Patient had KUB x-ray done showing findings consistent with mild, generalized ileus and worsening left-sided effusion. Active Medications Acetaminophen (Tylenol Tab) 650 mg PO Q6HR PRN PRN Reason: Mild Pain or Fever > 100.5 Last Admin: 12/16/19 06:00 Dose: 650 mg Documented by: Hydrocodone Bitart/Acetaminophen ([place] 5-325) 1 each PO Q6HR PRN PRN Reason: Pain Last Admin: 12/16/19 08:18 Dose: 1 each Documented by: Atorvastatin Calcium (Lipitor) 20 mg PO HS [facility] Last Admin: 12/15/19 21:17 Dose: 20 mg Documented by: Belladonna Alkaloids/Opium (B&O Suppository) 1 each RECTAL TID PRN PRN Reason: Pain Last Admin: 12/12/19 08:46 Dose: 1 each Documented by: Clonidine (Catapres) 0.1 mg PO BID [facility] Last Admin: 12/16/19 08:17 Dose: 0.1 mg Documented by: Clopidogrel Bisulfate (Plavix) 75 mg PO [facility] Last Admin: 12/15/19 21:17 Dose: 75 mg Documented by: Cyanocobalamin (Vitamin B-12) 500 mcg PO DAILY [facility] Last Admin: 12/16/19 08:18 Dose: 500 mcg Documented by: Docusate Sodium (Colace) 100 mg PO BID [facility] Last Admin: 12/16/19 08:18 Dose: 100 mg Documented by: Furosemide (Lasix) 40 mg IV Q12HR [facility] Last Admin: 12/16/19 16:20 Dose: 40 mg Documented by: Insulin Aspart (Novolog) 0 unit SQ [facility]; Protocol Last Admin: 12/16/19 16:59 Dose: 2 unit Documented by: Insulin Detemir (Levemir) 15 unit SQ [facility] Last Admin: 12/15/19 21:16 Dose: 15 unit Documented by: Isosorbide Mononitrate (Imdur) 30 mg PO DAILY [facility] Last Admin: 12/16/19 08:18 Dose: 30 mg Documented by: Levothyroxine Sodium (Synthroid) 50 mcg PO 0630 [facility] Last Admin: 12/16/19 05:53 Dose: 50 mcg Documented by: Lidocaine (Lidoderm) 1 patch TOPICAL DAILY [facility] Last Admin: 12/16/19 11:54 Dose: 1 patch Documented by: Magnesium Hydroxide (Milk Of Magnesia) 2,400 mg PO BID PRN PRN Reason: Constipation Last Admin: 12/14/19 08:11 Dose: 2,400 mg Documented by: Metronidazole (Flagyl) 500 mg PO Q8HR [facility] Last Admin: 12/16/19 16:20 Dose: 500 mg Documented by: Morphine Sulfate (Morphine Sulfate (Inj)) 2 mg IVP Q4H PRN PRN Reason: Pain/Discomfort Last Admin: 12/16/19 16:40 Dose: 2 mg Documented by: Naloxone HCl (Narcan) 0.2 mg IV Q2M PRN PRN Reason: Opioid Reversal Ondansetron HCl (Zofran) 4 mg IVP Q8HR PRN PRN Reason: Nausea And Vomiting Last Admin: 12/12/19 22:55 Dose: 4 mg Documented by: Oxybutynin Chloride (Ditropan) 5 mg PO TID [facility] Last Admin: 12/16/19 16:20 Dose: 5 mg Documented by: Pantoprazole Sodium (Protonix) 40 mg PO BID [facility] Last Admin: 12/16/19 08:18 Dose: 40 mg Documented by: Senna (Senokot) 17.2 mg PO HS [facility] Last Admin: 12/15/19 21:17 Dose: 17.2 mg Documented by: Objective - Vital Signs Vital signs: Vital Signs Temp 97.9 F 12/16/19 14:28 Pulse 103 H 12/16/19 16:00 Resp 17 12/16/19 16:00 BP 133/69 12/16/19 14:28 Pulse Ox 97 12/16/19 14:28 Intake & Output 12/15/19 12/16/19 12/16/19 18:59 06:59 18:59 Intake Total 1276 200 Output Total 700 2300 600 Balance 576 -2100 -600 Intake: Intake, IV Titration 780 Amount Sodium Chloride 0.9% 1, 780 000 ml @ 130 mls/hr IV . Q7H42M [facility] Rx#:[id number] Oral 496 200 Output: Urine 700 2300 600 Coude 700 550 Other: Voiding Method Indwelling Catheter Indwelling Catheter Indwelling Catheter # Voids 1 - Exam - Exam GENERAL: The patient is alert and oriented x3, not in any acute distress. Well developed, well nourished. HEENT: Pupils are round and equally reacting to light. EOMI. No scleral icterus. No conjunctival pallor. Normocephalic, atraumatic. No pharyngeal erythema. No thyromegaly. CARDIOVASCULAR: S1 and S2 present. No murmurs, rubs, or gallops. PULMONARY: Bilateral breath sounds are positive. Mild crackles at the lower lung bases bilaterally. ABDOMEN: Soft, nontender, slightly distended, normoactive bowel sounds. Landin catheter is in place with pinkish urine MUSCULOSKELETAL: No joint swelling or deformity. EXTREMITIES: No cyanosis, clubbing, mild pedal edema. NEUROLOGICAL: Gross neurological examination did not reveal any focal deficits. SKIN: No rashes. no petechiae - Labs CBC & Chem 7: 12/16/19 09:48 12/16/19 09:48 Labs: Abnormal Lab Results - Last 24 Hours (Table) 12/15/19 12/15/19 12/16/19 Range/Units 17:25 20:47 07:18 WBC (3.8-10.6) k/uL RBC (4.30-5.90) m/uL Hgb (13.0-17.5) gm/dL Hct (39.0-53.0) % MCHC (31.0-37.0) g/dL Neutrophils # (Manual) (1.3-7.7) k/uL Monocytes # (Manual) (0-1.0) k/uL Metamyelocytes # (Man) (0) k/uL Sodium (137-145) mmol/L Chloride (98-107) mmol/L Carbon Dioxide (22-30) mmol/L BUN (9-20) mg/dL Creatinine (0.66-1.25) mg/dL Glucose (74-99) mg/dL POC Glucose (mg/dL) 167 H 178 H 149 H (75-99) mg/dL Calcium (8.4-10.2) mg/dL 12/16/19 12/16/19 12/16/19 Range/Units 09:48 09:48 11:29 WBC 13.4 H (3.8-10.6) k/uL RBC 3.57 L (4.30-5.90) m/uL Hgb 9.8 L (13.0-17.5) gm/dL Hct 32.7 L (39.0-53.0) % MCHC 30.0 L (31.0-37.0) g/dL Neutrophils # (Manual) 10.85 H (1.3-7.7) k/uL Monocytes # (Manual) 1.34 H (0-1.0) k/uL Metamyelocytes # (Man) 0.13 H (0) k/uL Sodium 136 L (137-145) mmol/L Chloride 113 H (98-107) mmol/L Carbon Dioxide 15 L (22-30) mmol/L BUN 46 H (9-20) mg/dL Creatinine 4.56 H (0.66-1.25) mg/dL Glucose 140 H (74-99) mg/dL POC Glucose (mg/dL) 133 H (75-99) mg/dL Calcium 8.2 L (8.4-10.2) mg/dL 12/16/19 Range/Units 16:46 WBC (3.8-10.6) k/uL RBC (4.30-5.90) m/uL Hgb (13.0-17.5) gm/dL Hct (39.0-53.0) % MCHC (31.0-37.0) g/dL Neutrophils # (Manual) (1.3-7.7) k/uL Monocytes # (Manual) (0-1.0) k/uL Metamyelocytes # (Man) (0) k/uL Sodium (137-145) mmol/L Chloride (98-107) mmol/L Carbon Dioxide (22-30) mmol/L BUN (9-20) mg/dL Creatinine (0.66-1.25) mg/dL Glucose (74-99) mg/dL POC Glucose (mg/dL) 171 H (75-99) mg/dL Calcium (8.4-10.2) mg/dL Microbiology - Last 24 Hours (Table) 12/15/19 16:30 Urine Culture - Preliminary Urine,Voided Assessment and Plan Assessment: ASSESSMENT -Invasive high-grade urothelial carcinoma status post transurethral resection of the bladder tumor -Severe hemorrhagic cystitis and posterior bladder wall mucosal tear - urine culture pending -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 -Left-sided hydronephrosis. -Bilateral nephrolithiasis -Possible Reflux esophagitis -Coronary artery disease with stent about 15 months ago -Diabetes mellitus type 2 -Essential hypertension -Hypothyroid -Chronic kidney disease stage III from bilateral kidney stones -Hypertensive kidney disease PLAN: Patient currently having distended abdomen, KUB x-ray showing mild, generalized ileus. He has good bowel sounds. We'll continue with bowel regimen. Surgery Dr. Garcia in on board. Patient's creatinine is slowly trending up, nephrology has seen the patient, he has been started on Lasix 40 mg IV. Ongoing discussions with oncology for a treatment plan for invasive urothe lial carcinoma. Continue with the current medication regimen. Overall prognosis is poor. Further recommendations to follow depending on the progress of the patient.
[2019-12-16 20:00] LABS: Glucose,Whole Blood 176 mg/dL (75-99)
[2019-12-16] MEDS: CLOPIDOGREL 75 MG TAB PO SCH (20:37)
[2019-12-16] MEDS: SENNOSIDES 8.6 MG TAB PO SCH (20:38)
[2019-12-16] MEDS: ATORVASTATIN 20 MG TAB PO SCH (20:38)
[2019-12-16] MEDS: INSULIN DETEMIR (LEVEMIR) 100 UNIT/ML SYR SQ SCH (20:38)
[2019-12-16] MEDS: bisacodyL 10 MG SUPP RECTAL STA ×2 (20:39→20:47)
[2019-12-17] MEDS: LEVOTHYROXINE 50 MCG TAB PO SCH (05:35)
[2019-12-17 06:52] LABS: Glucose,Whole Blood 93 mg/dL (75-99)
[2019-12-17] MEDS: MORPHINE SULFATE 2 MG/ML SYRINGE IVP PRN ×3 (07:57→18:11)
[2019-12-17] MEDS: cloNIDine HCL 0.1 MG TAB PO SCH ×2 (07:59→21:38)
[2019-12-17] MEDS: metroNIDAZOLE 500 MG TAB PO SCH ×3 (07:59→23:49)
[2019-12-17] MEDS: ENOXAPARIN 30 MG/0.3 ML SYRINGE SQ SCH (07:59)
[2019-12-17] MEDS: OXYBUTYNIN CHLORIDE 5 MG TAB PO SCH ×3 (07:59→21:40)
[2019-12-17] MEDS: DOCUSATE 100 MG CAP PO SCH ×2 (07:59→21:38)
[2019-12-17] MEDS: ISOSORBIDE MONONITRATE ER 30 MG TAB.ER.24H PO SCH (07:59)
[2019-12-17] MEDS: PANTOPRAZOLE 40 MG TABLET PO SCH ×2 (07:59→21:39)
[2019-12-17] MEDS: FUROSEMIDE 10 MG/ML 4 ML VIAL IV SCH ×2 (07:59→21:39)
[2019-12-17] MEDS: CYANOCOBALAMIN 500 MCG TAB PO SCH (07:59)
[2019-12-17] MEDS: INSULIN ASPART (NovoLOG) 100 UNIT/ML VIAL SQ SCH ×4 (08:00→21:39)
[2019-12-17] MEDS: LIDOCAINE 5% PATCH TOPICAL SCH (08:00)
[2019-12-17] MEDS ORDERED: ENOXAPARIN 40 MG/0.4 ML SYRINGE SQ SCH (09:00)
[2019-12-17 10:11] LABS: Calcium 8.6 mg/dL (8.4-10.2); Potassium 4.7 mmol/L (3.5-5.1)
[2019-12-17 10:45] LABS: Basophils # (A) 0.1 k/uL (0-0.2); Basophils % (A) 1 %; Eosinophils # (A) 0.3 k/uL (0-0.7); Eosinophils % (A) 2 %; HCT 35.2 % (39.0-53.0); HGB 10.7 gm/dL (13.0-17.5); Hypochromasia Marked; Lymphocytes # (A) 0.8 k/uL (1.0-4.8); Lymphocytes % (A) 5 %; MCH 28.4 pg (25.0-35.0); MCHC 30.4 g/dL (31.0-37.0); MCV 93.2 fL (80.0-100.0); Mean Platelet Volume 7.6; Monocytes # (A) 0.9 k/uL (0-1.0); Monocytes % (A) 6 %; Neutrophils # (A) 11.5 k/uL (1.3-7.7); Neutrophils % (A) 81 %; Platelet Count 309 k/uL (150-450); RBC 3.78 m/uL (4.30-5.90); RDW 15.7 % (11.5-15.5); WBC 14.1 k/uL (3.8-10.6)
[2019-12-17 11:27] LABS: Glucose,Whole Blood 160 mg/dL (75-99)
[2019-12-17] MEDS ORDERED: NA PHOS,M-B/NA PHOS,DI-BA 133 ML ENEMA RECTAL STA (13:10)
--- NOTE | 2019-12-17 13:31 | P.PN ---
Progress Note - Text Progress Note Date: 12/17/19 The patient is afebrile and normotensive. He continues to have some lower abdominal discomfort from his Landin catheter. His urine is clear and he continues to make large amounts of urine. White blood count today is 14,000. Potassium is 4.7 and bicarbonate is 15. BUN/creatinine are 42/4.44 and have been essentially unchanged over the last 3 days. I continue to believe that at least a portion of his acute renal failure is related to edema in the trigone related to his recent transurethral resection. The patient had left hydronephrosis even prior to his surgery and if there was any edema at the right ureteral orifice this would further compromise his overall renal function. In view of his stable function I do not feel that placement of a percutaneous nephrostomy for drainage is necessary today however if his renal function does not improve over the next few days this may need to b e reconsidered. Dr. Esteban will reevaluate the patient tomorrow.
--- NOTE | 2019-12-17 13:53 | P.PN ---
Subjective Progress Note Date: 12/17/19 Follow-up for acute kidney injury. Family at bedside. Good urine output. Abdominal distention improving. Objective - Vital Signs Vital signs: Vital Signs Temp 98.0 F 12/17/19 07:00 Pulse 79 12/17/19 08:00 Resp 17 12/17/19 08:00 BP 160/69 12/17/19 07:00 Pulse Ox 96 12/17/19 07:00 Intake & Output 12/16/19 12/17/19 12/17/19 18:59 06:59 18:59 Intake Total 100 Output Total 1025 2150 Balance -1025 -2150 100 Intake: Oral 100 Output: Urine 1025 2150 Other: Voiding Method Indwelling Catheter Indwelling Catheter Indwelling Catheter - Exam No acute distress S1-S2 heard Decreased breath sounds Abdomen distended Landin Edema - Labs CBC & Chem 7: 12/17/19 09:14 12/17/19 09:14 Labs: Abnormal Lab Results - Last 24 Hours (Table) 12/16/19 12/16/19 12/17/19 Range/Units 16:46 19:55 09:14 WBC 14.1 H (3.8-10.6) k/uL RBC 3.78 L (4.30-5.90) m/uL Hgb 10.7 L (13.0-17.5) gm/dL Hct 35.2 L (39.0-53.0) % MCHC 30.4 L (31.0-37.0) g/dL RDW 15.7 H (11.5-15.5) % Neutrophils # 11.5 H (1.3-7.7) k/uL Lymphocytes # 0.8 L (1.0-4.8) k/uL Sodium (137-145) mmol/L Chloride (98-107) mmol/L Carbon Dioxide (22-30) mmol/L BUN (9-20) mg/dL Creatinine (0.66-1.25) mg/dL Glucose (74-99) mg/dL POC Glucose (mg/dL) 171 H 176 H (75-99) mg/dL 12/17/19 12/17/19 Range/Units 09:14 11:26 WBC (3.8-10.6) k/uL RBC (4.30-5.90) m/uL Hgb (13.0-17.5) gm/dL Hct (39.0-53.0) % MCHC (31.0-37.0) g/dL RDW (11.5-15.5) % Neutrophils # (1.3-7.7) k/uL Lymphocytes # (1.0-4.8) k/uL Sodium 136 L (137-145) mmol/L Chloride 110 H (98-107) mmol/L Carbon Dioxide 15 L (22-30) mmol/L BUN 47 H (9-20) mg/dL Creatinine 4.44 H (0.66-1.25) mg/dL Glucose 186 H (74-99) mg/dL POC Glucose (mg/dL) 160 H (75-99) mg/dL Microbiology - Last 24 Hours (Table) 12/15/19 16:30 Urine Culture - Final Urine,Voided Assessment and Plan Assessment: #1 nonoliguric acute kidney injury multifactorial possibilities include -Normotensive hemodynamic ATN with rapid fluctuation in blood pressure -Obstructive uropathy with bilateral hydronephrosis -Doubt abdominal compartment syndrome with tense abdomen. #2 hypervolemia with ascites and edema #3 hypervolemic hyponatremia #4 chronic kidney disease stage III suspect nephrosclerosis with a baseline crea tinine of 1.6-1.8 MG per DL. #5 hypertension with chronic kidney disease currently uncontrolled. #6 hematuria with pyuria secondary to complicated UTI from underlying bladder cancer #7 metabolic acidosis from acute kidney injury #8 mild hyperkalemia Plan: #1 continue with Lasix 40 mg IV twice a day. Renal function around the same. #2 if renal function continues to remain high needs cystoscopy to relieve the obstruction. #3 avoid nephrotoxic agents and hypotensive episodes. #4 appreciate urology input.
--- NOTE | 2019-12-17 16:03 | P.PN ---
Subjective Progress Note Date: 12/17/19 Principal diagnosis: Severe hemorrhagic cystitis, high-grade urothelial carcinoma Mr. Sorensen is an 79-year-old male with a past medical history of diabetes, chronic kidney disease hypertension, coronary artery disease with a stent about 15 months ago, admitted for ongoing hematuria. He was being treated with antibiotics for UTI as outpatient, but because of uncontrolled symptoms he has been hospitalized. Eventually the patient had cystoscopy done on December 07 showing severe hematologic cystitis, mucosal tear in the posterior bladder wall and bladder biopsy showing invasive high-grade urothelial carcinoma with features suggestive of lymph/vascular invasion. Patient had staging CTs done of the abdomen, chest, pelvis and bone scan that did not reveal metastatic disease. Urology, nephrology and oncology on board and following the patient closely. On 12/16/2019 - no acute events reported by nursing staff. Patient says that he still continues to have pain in his lower abdomen that has been radiating to the back. He has a Landin's catheter in place showing pinkish urine. Patient denies having any fevers chills or rigors. No chest pain or palpitations. No cough or difficulty in breathing. No epigastric pain, nausea vomiting or diarrhea. Patient complains of abdominal bloating. Patient's vitals have been stable and saturating at 97% on room air, heart rate in 90s to 100s. On reviewing the patient's labs white count is slightly lower from yesterday to 13.4, hemoglobin stable around 10, electrolytes within normal limits. Creatinine slowly trending up and today it is at 4.56. Patient had KUB x-ray done showing findings consistent with mild, generalized ileus and worsening left-sided effusion. On 12/17/2019 - patient is sitting up in a chair by the bedside. He states that he still has lower abdominal discomfort. Patient did not have a bowel movement since Wednesday. He has clear urine in his Landin's catheter. Patient denies having any fevers, chills or rigors. No chest pain or palpitations. Denies having any cough or difficulty in breathing. He states that there is swelling around his scrotal and penile area. On reviewing the Vitas patient's temperature is 98.3, heart rate 89, respiratory rate 18, blood pressure 118/68, saturating 98% on 2 L of oxygen. Patient's labs reviewed, white count of 14.1, hemoglobin 10.7, sodium 136, potassium 4.7, BUN 43 7, creatinine 4.44. Active Medications Acetaminophen (Tylenol Tab) 650 mg PO Q6HR PRN PRN Reason: Mild Pain or Fever > 100.5 Last Admin: 12/16/19 06:00 Dose: 650 mg Documented by: Hydrocodone Bitart/Acetaminophen ([place] 5-325) 1 each PO Q6HR PRN PRN Reason: Pain Last Admin: 12/16/19 08:18 Dose: 1 each Documented by: Atorvastatin Calcium (Lipitor) 20 mg PO [facility] Last Admin: 12/16/19 20:38 Dose: 20 mg Documented by: Belladonna Alkaloids/Opium (B&O Suppository) 1 each RECTAL TID PRN PRN Reason: Pain Last Admin: 12/12/19 08:46 Dose: 1 each Documented by: Clonidine (Catapres) 0.1 mg PO BID [facility] Last Admin: 12/17/19 07:59 Dose: 0.1 mg Documented by: Clopidogrel Bisulfate (Plavix) 75 mg PO [facility] Last Admin: 12/16/19 20:37 Dose: 75 mg Documented by: Cyanocobalamin (Vitamin B-12) 500 mcg PO DAILY [facility] Last Admin: 12/17/19 07:59 Dose: 500 mcg Documented by: Docusate Sodium (Colace) 100 mg PO BID [facility] Last Admin: 12/17/19 07:59 Dose: 100 mg Documented by: Enoxaparin Sodium (Lovenox) 30 mg SQ DAILY [facility] Last Admin: 12/17/19 07:59 Dose: 30 mg Documented by: Furosemide (Lasix) 40 mg IV Q12HR [facility] Last Admin: 12/17/19 07:59 Dose: 40 mg Documented by: Insulin Aspart (Novolog) [address] [facility]; Protocol Last Admin: 12/17/19 12:38 Dose: 1 unit Documented by: Insulin Detemir (Levemir) 15 unit SQ [facility] Last Admin: 12/16/19 20:38 Dose: 15 unit Documented by: Isosorbide Mononitrate (Imdur) 30 mg PO DAILY [facility] Last Admin: 12/17/19 07:59 Dose: 30 mg Documented by: Levothyroxine Sodium (Synthroid) 50 mcg PO 0630 [facility] Last Admin: 12/17/19 05:35 Dose: 50 mcg Documented by: Lidocaine (Lidoderm) 1 patch TOPICAL DAILY [facility] Last Admin: 12/17/19 08:00 Dose: 1 patch Documented by: Magnesium Hydroxide (Milk Of Magnesia) 2,400 mg PO BID PRN PRN Reason: Constipation Last Admin: 12/14/19 08:11 Dose: 2,400 mg Documented by: Metronidazole (Flagyl) 500 mg PO Q8HR [facility] Last Admin: 12/17/19 07:59 Dose: 500 mg Documented by: Morphine Sulfate (Morphine Sulfate (Inj)) 2 mg IVP Q4H PRN PRN Reason: Pain/Discomfort Last Admin: 12/17/19 11:52 Dose: 2 mg Documented by: Naloxone HCl (Narcan) 0.2 mg IV Q2M PRN PRN Reason: Opioid Reversal Ondansetron HCl (Zofran) 4 mg IVP Q8HR PRN PRN Reason: Nausea And Vomiting Last Admin: 12/12/19 22:55 Dose: 4 mg Documented by: Oxybutynin Chloride (Ditropan) 5 mg PO TID [facility] Last Admin: 12/17/19 07:59 Dose: 5 mg Documented by: Pantoprazole Sodium (Protonix) 40 mg PO BID [facility] Last Admin: 12/17/19 07:59 Dose: 40 mg Documented by: Senna (Senokot) 17.2 mg PO HS [facility] Last Admin: 12/16/19 20:38 Dose: 17.2 mg Documented by: Objective - Vital Signs Vital signs: Vital Signs Temp 98.3 F 12/17/19 15:00 Pulse 89 12/17/19 15:00 Resp 18 12/17/19 15:00 BP 118/68 12/17/19 15:00 Pulse Ox 98 12/17/19 15:00 Intake & Output 12/16/19 12/17/19 12/17/19 18:59 06:59 18:59 Intake Total 580 Output Total 1025 2150 Balance -1025 -2150 580 Weight 76.204 kg Intake: Oral 580 Output: Urine 1025 2150 Other: Voiding Method Indwelling Catheter Indwelling Catheter Indwelling Catheter # Voids 3 - Exam - Exam GENERAL: The patient is alert and oriented x3, not in any acute distress. Well developed, well nourished. HEENT: No pallor. No icterus. CARDIOVASCULAR: S1 and S2 present. No murmurs, rubs, or gallops. PULMONARY: Bilateral breath sounds are positive. Mild crackles at the lower lung bases bilaterally. ABDOMEN: Soft, nontender, slightly distended, normoactive bowel sounds. Landin catheter is in place with clear urine MUSCULOSKELETAL: No joint swelling or deformity. EXTREMITIES: No cyanosis, clubbing, mild pedal edema. NEUROLOGICAL: Gross neurological examination did not reveal any focal deficits. - Labs CBC & Chem 7: 12/17/19 09:14 12/17/19 09:14 Labs: Abnormal Lab Results - Last 24 Hours (Table) 12/16/19 12/16/19 12/17/19 Range/Units 16:46 19:55 09:14 WBC 14.1 H (3.8-10.6) k/uL RBC 3.78 L (4.30-5.90) m/uL Hgb 10.7 L (13.0-17.5) gm/dL Hct 35.2 L (39.0-53.0) % MCHC 30.4 L (31.0-37.0) g/dL RDW 15.7 H (11.5-15.5) % Neutrophils # 11.5 H (1.3-7.7) k/uL Lymphocytes # 0.8 L (1.0-4.8) k/uL Sodium (137-145) mmol/L Chloride (98-107) mmol/L Carbon Dioxide (22-30) mmol/L BUN (9-20) mg/dL Creatinine (0.66-1.25) mg/dL Glucose (74-99) mg/dL POC Glucose (mg/dL) 171 H 176 H (75-99) mg/dL 12/17/19 12/17/19 Range/Units 09:14 11:26 WBC (3.8-10.6) k/uL RBC (4.30-5.90) m/uL Hgb (13.0-17.5) gm/dL Hct (39.0-53.0) % MCHC (31.0-37.0) g/dL RDW (11.5-15.5) % Neutrophils # (1.3-7.7) k/uL Lymphocytes # (1.0-4.8) k/uL Sodium 136 L (137-145) mmol/L Chloride 110 H (98-107) mmol/L Carbon Dioxide 15 L (22-30) mmol/L BUN 47 H (9-20) mg/dL Creatinine 4.44 H (0.66-1.25) mg/dL Glucose 186 H (74-99) mg/dL POC Glucose (mg/dL) 160 H (75-99) mg/dL Microbiology - Last 24 Hours (Table) 12/15/19 16:30 Urine Culture - Final Urine,Voided Assessment and Plan Assessment: ASSESSMENT -Invasive high-grade urothelial carcinoma status post transurethral resection of the bladder tumor -Severe hemorrhagic cystitis and posterior bladder wall mucosal tear - urine culture - no growth till date -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 -Left-sided hydronephrosis. -Bilateral nephrolithiasis -Possible Reflux esophagitis -Coronary artery disease with stent about 15 months ago -Diabetes mellitus type 2 -Essential hypertension -Hypothyroid -Chronic kidney disease stage III from bilateral kidney stones -Hypertensive kidney disease PLAN: Patient currently having distended abdomen, KUB x-ray showing mild, generalized ileus. He has good bowel sounds. Will try [employer]. Surgery Dr. Garcia in on board. Patient's creatinine , has been stable for the past couple of days, nephrology has been started on Lasix 40 mg IV. Ongoing discussions with oncology/urology for a treatment plan for invasive urothelial carcinoma. Continue with the current medication regimen. Overall prognosis is poor. Further recommendations to follow depending on the progress of the patient.
[2019-12-17 18:04] LABS: Glucose,Whole Blood 146 mg/dL (75-99)
[2019-12-17] MEDS: HYDROcodone/APAP 5-325MG 1 EACH TAB PO PRN ×2 (19:00→23:49)
[2019-12-17 20:32] LABS: Glucose,Whole Blood 158 mg/dL (75-99)
[2019-12-17] MEDS: CLOPIDOGREL 75 MG TAB PO SCH (21:38)
[2019-12-17] MEDS: SENNOSIDES 8.6 MG TAB PO SCH (21:38)
[2019-12-17] MEDS: ATORVASTATIN 20 MG TAB PO SCH (21:38)
[2019-12-17] MEDS: INSULIN DETEMIR (LEVEMIR) 100 UNIT/ML SYR SQ SCH (21:38)
[2019-12-18] MEDS: LEVOTHYROXINE 50 MCG TAB PO SCH (05:55)
[2019-12-18] MEDS: HYDROcodone/APAP 5-325MG 1 EACH TAB PO PRN ×3 (05:56→16:54)
[2019-12-18 07:14] LABS: Glucose,Whole Blood 83 mg/dL (75-99)
[2019-12-18] MEDS: INSULIN ASPART (NovoLOG) 100 UNIT/ML VIAL SQ SCH ×4 (07:21→21:03)
[2019-12-18] MEDS: DOCUSATE 100 MG CAP PO SCH ×2 (07:44→20:31)
[2019-12-18] MEDS: CYANOCOBALAMIN 500 MCG TAB PO SCH (07:44)
[2019-12-18] MEDS: OXYBUTYNIN CHLORIDE 5 MG TAB PO SCH ×3 (07:45→21:03)
[2019-12-18] MEDS: ACETAMINOPHEN TAB 325 MG TAB PO PRN ×2 (07:45→20:32)
[2019-12-18] MEDS: ENOXAPARIN 30 MG/0.3 ML SYRINGE SQ SCH (07:45)
[2019-12-18] MEDS: PANTOPRAZOLE 40 MG TABLET PO SCH ×2 (07:46→20:31)
[2019-12-18] MEDS: FUROSEMIDE 10 MG/ML 4 ML VIAL IV SCH ×2 (07:46→20:32)
[2019-12-18] MEDS: ISOSORBIDE MONONITRATE ER 30 MG TAB.ER.24H PO SCH (07:46)
[2019-12-18] MEDS: metroNIDAZOLE 500 MG TAB PO SCH ×2 (07:46→16:51)
[2019-12-18] MEDS: cloNIDine HCL 0.1 MG TAB PO SCH ×2 (07:50→20:31)
[2019-12-18 07:58] LABS: Calcium 8.7 mg/dL (8.4-10.2); Potassium 4.2 mmol/L (3.5-5.1)
--- NOTE | 2019-12-18 08:28 | P.PN ---
Subjective Progress Note Date: 12/18/19 The events of the weekend were reviewed. The patient's creatinine elevated post-TURBT last week. It peaked at 4.4 and is now 4.1 this morning. The patient had left hydro-preoperative now has bilateral hydronephrosis but only mild right. He is relatively asymptomatic. The urine in the catheter is clear. The pathology shows muscle invasive bladder cancer. The metastatic workup including bone scan and computed tomography scan is negative. I had a lengthy discussion with the patient about treatment options including observation and palliative care, chemotherapy and radiation, chemotherapy and radical cystectomy. Given his painful small capacity bladder chemotherapy with radiation is not a very good option. If we do nothing obviously he will succumb to his disease and it will be painful. The patient understands disease and would like to proceed with cystectomy if possible. We discuss referral options. The patient has a relationship with a [facility] system and would be interested in going to that hospital. I will communicate with the surgeon's that perform this procedure and begin the referral process. I will discuss with them the need for a possible nephrostomy tube or tubes prior to incision them. The patient understands and concurs with this plan of action. Objective - Vital Signs Vital signs: Vital Signs Temp 97.8 F 12/18/19 07:00 Pulse 80 12/18/19 07:00 Resp 18 12/18/19 07:00 BP 127/50 12/18/19 07:00 Pulse Ox 100 12/18/19 07:00 Intake & Output 12/17/19 12/18/19 12/18/19 18:59 06:59 18:59 Intake Total 580 300 Output Total 3200 Balance 580 -2900 Weight 76.204 kg Intake: Oral 580 300 Output: Urine 3200 Coude 2400 Other: Voiding Method Indwelling Catheter Indwelling Catheter Indwelling Catheter # Voids 3 - Labs CBC & Chem 7: 12/17/19 09:14 12/18/19 07:22 Labs: Abnormal Lab Results - Last 24 Hours (Table) 12/17/19 12/17/19 12/17/19 Range/Units 09:14 09:14 11:26 WBC 14.1 H (3.8-10.6) k/uL RBC 3.78 L (4.30-5.90) m/uL Hgb 10.7 L (13.0-17.5) gm/dL Hct 35.2 L (39.0-53.0) % MCHC 30.4 L (31.0-37.0) g/dL RDW 15.7 H (11.5-15.5) % Neutrophils # 11.5 H (1.3-7.7) k/uL Lymphocytes # 0.8 L (1.0-4.8) k/uL Sodium 136 L (137-145) mmol/L Chloride 110 H (98-107) mmol/L Carbon Dioxide 15 L (22-30) mmol/L BUN 47 H (9-20) mg/dL Creatinine 4.44 H (0.66-1.25) mg/dL Glucose 186 H (74-99) mg/dL POC Glucose (mg/dL) 160 H (75-99) mg/dL 12/17/19 12/17/19 12/18/19 Range/Units 18:03 20:31 07:22 WBC (3.8-10.6) k/uL RBC (4.30-5.90) m/uL Hgb (13.0-17.5) gm/dL Hct (39.0-53.0) % MCHC (31.0-37.0) g/dL RDW (11.5-15.5) % Neutrophils # (1.3-7.7) k/uL Lymphocytes # (1.0-4.8) k/uL Sodium (137-145) mmol/L Chloride (98-107) mmol/L Carbon Dioxide (22-30) mmol/L BUN 50 H (9-20) mg/dL Creatinine 4.19 H (0.66-1.25) mg/dL Glucose (74-99) mg/dL POC Glucose (mg/dL) 146 H 158 H (75-99) mg/dL
[2019-12-18 11:42] LABS: Glucose,Whole Blood 200 mg/dL (75-99)
--- NOTE | 2019-12-18 12:10 | PN ---
PROGRESS NOTE Patient is seen for followup for acute kidney injury and obstructive uropathy. He is being followed by Urology. The patient is currently awaiting communication with Urology from [facility] and possibility of nephrostomy tube. He has had urine output. Serum creatinine is 4.19, which is slightly better from 4.4, however, staying elevated from a previous creatinine of about 1.7 and 1.6 mg/dL. PHYSICAL EXAMINATION: Blood pressure is 99/54, heart rate of 76 per minute, patient is afebrile. Examination of the heart S1, S2. Examination of the lungs, bilateral breath sounds are heard. Abdomen is soft, nontender. Examination of lower extremities shows no significant edema. 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 LAB: Show sodium 139, potassium 4.2, chloride 107. BUN 50, creatinine of 4.19, calcium 8.7. ASSESSMENT: 1. Acute kidney injury mostly obstructive in nature with an element of acute tubular necrosis as well. Currently nonoliguric with plans for consideration of possible nephrostomy tube placement. 2. Chronic kidney disease stage 3 secondary to nephrosclerosis. Baseline creatinine 1.6-1.8 mg/dL. 3. Hypertension with chronic kidney disease currently controlled. Blood pressure occasionally dipping significantly low. 4. Hypervolemic, hyponatremia, now improved. 5. Metabolic acidosis from renal failure, now improved. 6. Mild hyperkalemia associated with renal failure also improved. PLAN: Continue with the Lasix for now repeat labs in a.m. Continue to avoid nephrotoxic agents. Await urology decision regarding intervention. MMODL / IJN: [id number] /
--- NOTE | 2019-12-18 14:55 | P.PN ---
Subjective Progress Note Date: 12/18/19 Principal diagnosis: Bladder Mass PLan is for cystectomy at [facility] Objective - Vital Signs Vital signs: Vital Signs Temp 97.8 F 12/18/19 07:00 Pulse 80 12/18/19 07:00 Resp 18 12/18/19 07:00 BP 127/50 12/18/19 07:00 Pulse Ox 100 12/18/19 07:00 Intake & Output 12/17/19 12/18/19 12/18/19 18:59 06:59 18:59 Intake Total 580 300 200 Output Total 3200 450 Balance 580 -2900 -250 Weight 76.204 kg Intake: Oral 580 300 200 Output: Urine 3200 450 Coude 2400 Other: Voiding Method Indwelling Catheter Indwelling Catheter Indwelling Catheter # Voids 3 - Exam - Constitutional General appearance: cooperative, no acute distress - EENT Eyes: EOMI, PERRLA, dentition normal ENT: hard of hearing, NA/AT, normal oropharynx - Neck Neck: normal ROM - Respiratory Respiratory: bilateral: CTA (no increased effort) - Cardiovascular Rhythm: regular Heart sounds: normal: S1, S2 - Gastrointestinal General gastrointestinal: normal bowel sounds, soft, tenderness - Neurologic non-focal Neurologic: CNII-XII intact - Musculoskeletal Musculoskeletal: generalized weakness, strength equal bilaterally - Psychiatric Psychiatric: A&O x's 3, appropriate affect, intact judgment & insight - Labs CBC & Chem 7: 12/17/19 09:14 12/18/19 07:22 Labs: Abnormal Lab Results - Last 24 Hours (Table) 12/17/19 12/17/19 12/18/19 Range/Units 18:03 20:31 07:22 BUN 50 H (9-20) mg/dL Creatinine 4.19 H (0.66-1.25) mg/dL POC Glucose (mg/dL) 146 H 158 H (75-99) mg/dL 12/18/19 Range/Units 11:35 BUN (9-20) mg/dL Creatinine (0.66-1.25) mg/dL POC Glucose (mg/dL) 200 H (75-99) mg/dL Assessment and Plan (1) Urothelial carcinoma of bladder Current Visit: Yes Status: Acute Code(s): C67.9 - MALIGNANT NEOPLASM OF BLADDER, UNSPECIFIED SNOMED Code(s): 908482154 Plan: Assessment and Recommendations: New Diagnosis High Grade Urothelial Carcinoma: - Status Post TURPT by Urology on 12/13/19 - Staging CTs without contrast Chest, abdomen and pelvis and bone scan do not reveal metastatic disease. - Positive path for muscular invasion high grade urothelial, no evedence of distant mets. Plan cystectomy and likely recommend systemic adjuvant treatment Hematuria: Improving: - Iron studies and monitoring CBC Acute Renal Failure: - Nephrology COnsult - Prior imaging with multiple stones and left hydronephrosis - Ultrasound of kidneys Plan: - PLan for transfer to [facility] for further surgical intervention Physician Attest: I have completed full history and physical and agree with above dictation, dictated as a scribe
[2019-12-18 16:54] LABS: Glucose,Whole Blood 132 mg/dL (75-99)
[2019-12-18 18:28] LABS: Hemoglobin A1C 8.2 % (4.0-6.0)
[2019-12-18] MEDS: SENNOSIDES 8.6 MG TAB PO SCH (20:31)
[2019-12-18] MEDS: CLOPIDOGREL 75 MG TAB PO SCH (20:31)
[2019-12-18] MEDS: ATORVASTATIN 20 MG TAB PO SCH (20:31)
[2019-12-18 20:48] LABS: Glucose,Whole Blood 181 mg/dL (75-99)
[2019-12-18] MEDS: INSULIN DETEMIR (LEVEMIR) 100 UNIT/ML SYR SQ SCH (21:03)
[2019-12-18] MEDS: MORPHINE SULFATE 2 MG/ML SYRINGE IVP PRN (23:15)
--- NOTE | 2019-12-18 23:23 | P.PN ---
Subjective Progress Note Date: 12/18/19 Principal diagnosis: Severe hemorrhagic cystitis, high-grade urothelial carcinoma Mr. Sorensen is an 79-year-old male with a past medical history of diabetes, chronic kidney disease hypertension, coronary artery disease with a stent about 15 months ago, admitted for ongoing hematuria. He was being treated with antibiotics for UTI as outpatient, but because of uncontrolled symptoms he has been hospitalized. Eventually the patient had cystoscopy done on December 07 showing severe hematologic cystitis, mucosal tear in the posterior bladder wall and bladder biopsy showing invasive high-grade urothelial carcinoma with features suggestive of lymph/vascular invasion. Patient had staging CTs done of the abdomen, chest, pelvis and bone scan that did not reveal metastatic disease. Urology, nephrology and oncology on board and following the patient closely. On 12/16/2019 - no acute events reported by nursing staff. Patient says that he still continues to have pain in his lower abdomen that has been radiating to the back. He has a Landin's catheter in place showing pinkish urine. Patient denies having any fevers chills or rigors. No chest pain or palpitations. No cough or difficulty in breathing. No epigastric pain, nausea vomiting or diarrhea. Patient complains of abdominal bloating. Patient's vitals have been stable and saturating at 97% on room air, heart rate in 90s to 100s. On reviewing the patient's labs white count is slightly lower from yesterday to 13.4, hemoglobin stable around 10, electrolytes within normal limits. Creatinine slowly trending up and today it is at 4.56. Patient had KUB x-ray done showing findings consistent with mild, generalized ileus and worsening left-sided effusion. On 12/17/2019 - patient is sitting up in a chair by the bedside. He states that he still has lower abdominal discomfort. Patient did not have a bowel movement since Wednesday. He has clear urine in his Landin's catheter. Patient denies having any fevers, chills or rigors. No chest pain or palpitations. Denies having any cough or difficulty in breathing. He states that there is swelling around his scrotal and penile area. On reviewing the Vitas patient's temperature is 98.3, heart rate 89, respiratory rate 18, blood pressure 118/68, saturating 98% on 2 L of oxygen. Patient's labs reviewed, white count of 14.1, hemoglobin 10.7, sodium 136, potassium 4.7, BUN 43 7, creatinine 4.44. On 12/18/2019 -patient is sitting up in a chair by the bedside. He states that he still has lower abdominal discomfort. He also reports swelling around his perineal area. Patient has Landin's catheter in place with a clear-colored urine. He received Fleet enema yesterday and had a bowel movement, mentions that his abdominal distention is relieved now. Patient denied having any fevers chills or rigors. No chest pain or palpitations. Denies having any cough or difficulty in breathing. Patient's vitals and labs reviewed. Active Medications Acetaminophen (Tylenol Tab) 650 mg PO Q6HR PRN PRN Reason: Mild Pain or Fever > 100.5 Last Admin: 12/18/19 20:32 Dose: 650 mg Documented by: Hydrocodone Bitart/Acetaminophen ([place] 5-325) 1 each PO Q6HR PRN PRN Reason: Pain Last Admin: 12/18/19 16:54 Dose: 1 each Documented by: Atorvastatin Calcium (Lipitor) 20 mg PO [facility] Last Admin: 12/18/19 20:31 Dose: 20 mg Documented by: Belladonna Alkaloids/Opium (B&O Suppository) 1 each RECTAL TID PRN PRN Reason: Pain Last Admin: 12/12/19 08:46 Dose: 1 each Documented by: Clonidine (Catapres) 0.1 mg PO BID [facility] Last Admin: 12/18/19 20:31 Dose: 0.1 mg Documented by: Clopidogrel Bisulfate (Plavix) 75 mg PO [facility] Last Admin: 12/18/19 20:31 Dose: 75 mg Documented by: Cyanocobalamin (Vitamin B-12) 500 mcg PO DAILY [facility] Last Admin: 12/18/19 07:44 Dose: 500 mcg Documented by: Docusate Sodium (Colace) 100 mg PO BID [facility] Last Admin: 12/18/19 20:31 Dose: 100 mg Documented by: Enoxaparin Sodium (Lovenox) 30 mg SQ DAILY [facility] Last Admin: 12/18/19 07:45 Dose: 30 mg Documented by: Furosemide (Lasix) 40 mg IV Q12HR [facility] Last Admin: 12/18/19 20:32 Dose: 40 mg Documented by: Insulin Aspart (Novolog) 0 unit SQ [facility]; Protocol Last Admin: 12/18/19 21:03 Dose: 2 unit Documented by: Insulin Detemir (Levemir) 15 unit SQ [facility] Last Admin: 12/18/19 21:03 Dose: 15 unit Documented by: Isosorbide Mononitrate (Imdur) 30 mg PO DAILY [facility] Last Admin: 12/18/19 07:46 Dose: 30 mg Documented by: Levothyroxine Sodium (Synthroid) 50 mcg PO 0630 [facility] Last Admin: 12/18/19 05:55 Dose: 50 mcg Documented by: Lidocaine (Lidoderm) 1 patch TOPICAL DAILY [facility] Last Admin: 12/17/19 08:00 Dose: 1 patch Documented by: Magnesium Hydroxide (Milk Of Magnesia) 2,400 mg PO BID PRN PRN Reason: Constipation Last Admin: 12/14/19 08:11 Dose: 2,400 mg Documented by: Morphine Sulfate (Morphine Sulfate (Inj)) 2 mg IVP Q4H PRN PRN Reason: Pain/Discomfort Last Admin: 12/18/19 23:15 Dose: 2 mg Documented by: Naloxone HCl (Narcan) 0.2 mg IV Q2M PRN PRN Reason: Opioid Reversal Ondansetron HCl (Zofran) 4 mg IVP Q8HR PRN PRN Reason: Nausea And Vomiting Last Admin: 12/12/19 22:55 Dose: 4 mg Documented by: Oxybutynin Chloride (Ditropan) 5 mg PO TID [facility] Last Admin: 12/18/19 21:03 Dose: 5 mg Documented by: Pantoprazole Sodium (Protonix) 40 mg PO BID [facility] Last Admin: 12/18/19 20:31 Dose: 40 mg Documented by: Senna (Senokot) 17.2 mg PO [facility] Last Admin: 12/18/19 20:31 Dose: 17.2 mg Documented by: Objective - Vital Signs Vital signs: Vital Signs Temp 98.2 F 12/18/19 19:01 Pulse 84 12/18/19 19:01 Resp 20 12/18/19 19:01 BP 117/57 12/18/19 19:01 Pulse Ox 98 12/18/19 19:01 Intake & Output 12/18/19 12/18/19 12/19/19 06:59 18:59 06:59 Intake Total 300 200 Output Total 3200 450 1100 Balance -2900 -250 -1100 Intake: Oral 300 200 Output: Urine 3200 450 1100 Coude 2400 1100 Other: Voiding Method Indwelling Catheter Indwelling Catheter - Exam PHYSICAL EXAM GENERAL: The patient is alert and oriented x3, not in any acute distress. Well developed, well nourished. HEENT: No pallor. No icterus. CARDIOVASCULAR: S1 and S2 present. No murmurs, rubs, or gallops. PULMONARY: Bilateral breath sounds are positive. Mild crackles at the lower lung bases bilaterally. ABDOMEN: Soft, nontender, slightly distended, normoactive bowel sounds. Landin catheter is in place with clear urine MUSCULOSKELETAL: No joint swelling or deformity. EXTREMITIES: No cyanosis, clubbing, mild pedal edema. NEUROLOGICAL: Gross neurological examination did not reveal any focal deficits. - Labs CBC & Chem 7: 12/17/19 09:14 12/18/19 07:22 Labs: Abnormal Lab Results - Last 24 Hours (Table) 12/18/19 12/18/19 12/18/19 Range/Units 07:22 07:22 11:35 BUN 50 H (9-20) mg/dL Creatinine 4.19 H (0.66-1.25) mg/dL POC Glucose (mg/dL) 200 H (75-99) mg/dL Hemoglobin A1c 8.2 H (4.0-6.0) % 12/18/19 12/18/19 Range/Units 16:53 20:34 BUN (9-20) mg/dL Creatinine (0.66-1.25) mg/dL POC Glucose (mg/dL) 132 H 181 H (75-99) mg/dL Hemoglobin A1c (4.0-6.0) % Assessment and Plan Assessment: ASSESSMENT -Invasive high-grade urothelial carcinoma status post transurethral resection of the bladder tumor -Severe hemorrhagic cystitis and posterior bladder wall mucosal tear - urine culture - no growth till date -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 -Left-sided hydronephrosis. -Bilateral nephrolithiasis -Possible Reflux esophagitis -Coronary artery disease with stent about 15 months ago -Diabetes mellitus type 2 -Essential hypertension -Hypothyroid -Chronic kidney disease stage III from bilateral kidney stones -Hypertensive kidney disease PLAN: Abdominal distention relieved after having a bowel movement yesterday after Fleet enema. Patient's creatinine has been stable for the past couple of days. Nephrology on board following the patient. Urology Dr. Correa evaluated the patient today and brought up the discussion to transfer him to [facility] for possible cystectomy. As per discussion with cyanide case hardener, Dr. Correa would try to communicate with the surgeon at [facility] and arrange for transfer. Patient agrees with the plan. Continue with the rest of his current medication regimen. Overall prognosis is poor. Further recommendations to follow depending on the progress of the patient.
[2019-12-19] MEDS: HYDROcodone/APAP 5-325MG 1 EACH TAB PO PRN ×4 (01:08→21:28)
[2019-12-19] MEDS: LEVOTHYROXINE 50 MCG TAB PO SCH (06:12)
[2019-12-19 06:53] LABS: Glucose,Whole Blood 116 mg/dL (75-99)
[2019-12-19] MEDS: INSULIN ASPART (NovoLOG) 100 UNIT/ML VIAL SQ SCH ×4 (07:20→21:29)
--- NOTE | 2019-12-19 07:38 | P.PN ---
Subjective Progress Note Date: 12/19/19 The patient has muscle invasive bladder cancer. Yesterday I had a lengthy discussion about treatment options and the best treatment option for him would be cystectomy with an ileal loop. We have contacted [facility] and interested in participating in his care. They are hoping for transfer and surgery later this week. We will contact us later today. As far as the hydronephrosis and renal insufficiency depending on the level of creatinine today as well as when they can proceed with the surgery as to whether nephrostomy tube or tubes would be required. Further decisions and information will be made later today. The patient otherwise is stable. His vital signs are stable and his urine output is adequate. Objective - Vital Signs Vital signs: Vital Signs Temp 98 F 12/19/19 00:30 Pulse 86 12/19/19 00:30 Resp 18 12/19/19 03:32 BP 113/64 12/19/19 00:30 Pulse Ox 94 L 12/19/19 00:30 Intake & Output 12/18/19 12/19/19 12/19/19 18:59 06:59 18:59 Intake Total 200 300 Output Total 450 4100 Balance -250 -3800 Intake: Oral 200 300 Output: Urine 450 4100 Coude 1100 Other: Voiding Method Indwelling Catheter Indwelling Catheter - Labs CBC & Chem 7: 12/17/19 09:14 12/18/19 07:22 Labs: Abnormal Lab Results - Last 24 Hours (Table) 12/18/19 12/18/19 12/18/19 Range/Units 07:22 07:22 11:35 BUN 50 H (9-20) mg/dL Creatinine 4.19 H (0.66-1.25) mg/dL POC Glucose (mg/dL) 200 H (75-99) mg/dL Hemoglobin A1c 8.2 H (4.0-6.0) % 12/18/19 12/18/19 12/19/19 Range/Units 16:53 20:34 06:51 BUN (9-20) mg/dL Creatinine (0.66-1.25) mg/dL POC Glucose (mg/dL) 132 H 181 H 116 H (75-99) mg/dL Hemoglobin A1c (4.0-6.0) %
[2019-12-19 08:12] LABS: Basophils # (A) 0.1 k/uL (0-0.2); Basophils % (A) 1 %; Eosinophils # (A) 0.3 k/uL (0-0.7); Eosinophils % (A) 3 %; HCT 35.9 % (39.0-53.0); HGB 11.5 gm/dL (13.0-17.5); Hypochromasia Slight; Lymphocytes # (A) 1.2 k/uL (1.0-4.8); Lymphocytes % (A) 9 %; MCH 28.6 pg (25.0-35.0); MCV 89.4 fL (80.0-100.0); Monocytes # (A) 0.9 k/uL (0-1.0); Monocytes % (A) 7 %; Neutrophils # (A) 10.6 k/uL (1.3-7.7); Neutrophils % (A) 78 %; Platelet Count 400 k/uL (150-450); RBC 4.02 m/uL (4.30-5.90); RDW 15.1 % (11.5-15.5); WBC 13.5 k/uL (3.8-10.6)
[2019-12-19 08:25] LABS: Calcium 8.7 mg/dL (8.4-10.2); Potassium 4.5 mmol/L (3.5-5.1)
[2019-12-19] MEDS: cloNIDine HCL 0.1 MG TAB PO SCH ×2 (09:21→21:28)
[2019-12-19] MEDS: PANTOPRAZOLE 40 MG TABLET PO SCH ×2 (09:21→21:28)
[2019-12-19] MEDS: LIDOCAINE 5% PATCH TOPICAL SCH (09:22)
[2019-12-19] MEDS: CYANOCOBALAMIN 500 MCG TAB PO SCH (09:22)
[2019-12-19] MEDS: DOCUSATE 100 MG CAP PO SCH ×2 (09:22→21:28)
[2019-12-19] MEDS: ISOSORBIDE MONONITRATE ER 30 MG TAB.ER.24H PO SCH (09:22)
[2019-12-19] MEDS: OXYBUTYNIN CHLORIDE 5 MG TAB PO SCH ×3 (09:22→21:28)
[2019-12-19] MEDS: FUROSEMIDE 10 MG/ML 4 ML VIAL IV SCH ×2 (09:22→21:29)
[2019-12-19] MEDS: ENOXAPARIN 30 MG/0.3 ML SYRINGE SQ SCH (09:22)
[2019-12-19] MEDS: MORPHINE SULFATE 2 MG/ML SYRINGE IVP PRN ×2 (10:28→23:44)
--- NOTE | 2019-12-19 10:56 | P.PN ---
Progress Note - Text Progress Note Date: 12/19/19 I spoke with [facility]. They cant do the cystectomy until next week at the earliest The patients cr has come down to 3.3 We will continue to observe this He could go home with the skelton until his surgery We will c/w arrangements for MR Sorensen.
[2019-12-19 11:56] LABS: Glucose,Whole Blood 284 mg/dL (75-99)
--- NOTE | 2019-12-19 12:20 | P.PN ---
Subjective From records This is a very pleasant [address] Pola Knott. Also follows with piston maker Dr. Shannon Andres. Chronic stable medical conditions include diabetes, chronic kidney disease hypertension, coronary artery disease with a stent about 15 months ago. Patient for about one has been having hematuria especially in the last 2 weeks has been far more problems with sometimes shanice blood. Patient was recently started on antibiotics in the form of doxycycline by Dr. Persaud was patient's urologist. Also having some suprapubic tenderness. Has started feeling dizzy. Sometimes gets bladder spasms. Because the symptoms not getting controlled decided to come to the ER. Dr. Persaud was consulted. Denies cystoscopy. Has known kidney stones. Computed tomography scan suggestive of questionable fistula from the bladder to:. And question about diverticulitis. Patient also been having some diarrhea for quite a few days she states. No blood. Patient started and IV ceftriaxone. Antibiotics switched to cefepime and Flagyl. December [id number] hemorrhagic cystitis, mucosal tear in the posterior bladder wall. Landin catheter was placed. Shanice hematuria present. Cozaar were discontinued because of renal function. Today-Landin catheter still putting out dark blood. Patient is having 2 or 3 bowel movements a day. Minimal Abdominal pain. Tolerating diet Subjective 12/11/2019 This is a pleasant 79 years old male who presents with hematuria secondary to severe hemorrhagic cystitis ,cystoscopy done on 12/07, also is been treated for UTI with cefepime and IV Flagyl, also is on antibiotics for sigmoid diverticul itis and there was suspicion of possible vesico-colonic fistula with surgery and GI and urology team on the case Last night he had a rough last Night because his Landin catheter was blocked and has to be flushed, patient needed pain medication and he was complaining from pain at the penile area (patient refused genital exam) This morning he was having some acid reflux, Protonix is admitted. He denies abdominal pain, no LLQ pain or tenderness. No nausea vomiting and is tolerated that well however he has pain on eating due to acid reflux, Protonix was added as he was not on PPI or antiacids. WBC stable at 12.5 K, looks chronic. Creatinine is improving down to 1.7, which is close to his baseline of 1.4-1.8, no fever. Physical normal saline and with 30 mL/h, IV cefepime and IV fluids 12/12/2019 Patient is awake and alert, his abdominal pain and bladder spasm was better today, he still gets some abdominal cramps now and then. Landin catheter still in place and has clear urine this morning. No other complaint no dyspnea or chest pain. He has this suprapubic tenderness today. No fever. Labs from today showing WBC stable at 12.5 K which is chronic. Hemoglobin stable at 11.2. Platelet normal. Sugar controlled. Urinary bladder biopsy showing invasive high-grade urothelial carcinoma with features suggestive of lymph/vascular invasion. Urology is on the case Patient remains on cefepime and IV Flagyl and normal saline at 130 mL/h. Patient will benefit from ECF for inpatient rehab per OT team recommendation, discussed with the patient he was hesitant but he agrees to see social scientist for possible ECF placement for rehab 12/13/19 Patient underwent transurethral resection of the bladder tumor to identify its cancer in situ versus invasive cancer into the muscles. Oncology team also evaluated the patient for further treatment PET scan: No focal activity, degenerative disease. WBC is back to normal today at 10.5 K, hemoglobin stable at 11.0. Sugar is controlled and creatinine is slightly down at 1.6 and vitals are stable Patient remains on cefepime, IV Flagyl and normal saline 12/14/2019 . Landin catheter is placed, patient still complaining of from some suprapubic pain and constipation. His abdominal distented so we ordered abdominal x- distended. No chest pain or dyspnea. Vital signs stable. WBC is high again at 17.6 K. Hemoglobin and sodium and potassium are stable. Creatinine went up to 3.9, currently he is on normal saline at 130 mL/h, will continue with hydration with normal saline and follow-up creatinine is no improvement then we'll consider nephrology consult. Patient had negative PET scan yesterday 12/15/2019 Patient awake and he feels little better every day, he still gets abdominal cramps and spasms and he needs his Landin catheter to be flushed, today he has red colored urine in his urine catheter, also his complaining of from right flank pain, no nausea vomiting, also he has abdominal distention with ileus and has a lot of gases but no bowel movement, mostly related to his pain medication and he was started on senna and Colace, we'll ask surgical team for reevaluation vitals are stable and he is afebrile.WBC still elevated with slightly less at 16.3 K, hemoglobin stable at 10.5, creatinine is up today to 4.6, electrolytes a re normal,glucose low this morning at 64 and we lowered his Levemir from 20 down to 15 units. We'll check renal ultrasound in view of his right flank pain, and trending up creatinine and he status post recent cystoscopy and tumor resection with TURBT, today is postoperative day #2. he remains on cefepime and IV Flagyl (for urinary bladder cystitis and colitis) and normal saline at 130 mL/h PT/OT recommended rehab, was reluctant to go to rehab, I discussed with him and explained extensively the importance of rehab follow-up and he change his mind and agrees to go to rehab now discussed with the staff 12/19/2019 Patient is status post cystoscopy with TURBT, today is postoperative day #6. Urinary bladder biopsy came back positive for invasive urothelial cancer. Postoperatively he developed worsening creatinine Emely is been trending down to 3.3. Have the fluid was stopped and he is on IV Lasix. He is off antibiotics for now. He still have some suprapubic pain and discomfort, Landin catheter is in place and draining clear urine now. Dr. Esteban the urologist was trying to transfer him to her in [facility] for cystectomy, however they cannot do the surgery to next week at the earliest so Angelo Esteban recommended patient to be discharged tomorrow on Landin catheter and he can follow-up as an outpatient Also is been followed closely by technology lab teacher, surgeon and oncologist Objective - Vital Signs Vital signs: Vital Signs Temp 98.3 F 12/19/19 07:00 Pulse 85 12/19/19 07:00 Resp 18 12/19/19 07:00 BP 136/73 12/19/19 07:00 Pulse Ox 96 12/19/19 07:00 Intake & Output 12/18/19 12/19/19 12/19/19 18:59 06:59 18:59 Intake Total 200 300 Output Total 450 4100 Balance -250 -3800 Intake: Oral 200 300 Output: Urine 450 4100 Coude 1100 Other: Voiding Method Indwelling Catheter Indwelling Catheter Indwelling Catheter - Exam GENERAL: The patient is alert and oriented x3, not in any acute distress. Well developed, well nourished. HEENT: Pupils are round and equally reacting to light. EOMI. No scleral icterus. No conjunctival pallor. Normocephalic, atraumatic. No pharyngeal erythema. No thyromegaly. CARDIOVASCULAR: S1 and S2 present. No murmurs, rubs, or gallops. PULMONARY: Chest is clear to auscultation, no wheezing or crackles. -ABDOMEN: Soft, nontender, nondistended, normoactive bowel sounds. No palpable organomegaly. Landin catheter is in place (patient is refusing genital exam) MUSCULOSKELETAL: No joint swelling or deformity. EXTREMITIES: No cyanosis, clubbing, or pedal edema. NEUROLOGICAL: Gross neurological examination did not reveal any focal deficits. SKIN: No rashes. no petechiae. - Labs CBC & Chem 7: 12/19/19 07:23 12/19/19 07:23 Labs: Abnormal Lab Results - Last 24 Hours (Table) 12/18/19 12/18/19 12/18/19 Range/Units 07:22 16:53 20:34 WBC (3.8-10.6) k/uL RBC (4.30-5.90) m/uL Hgb (13.0-17.5) gm/dL Hct (39.0-53.0) % Neutrophils # (1.3-7.7) k/uL BUN (9-20) mg/dL Creatinine (0.66-1.25) mg/dL Glucose (74-99) mg/dL POC Glucose (mg/dL) 132 H 181 H (75-99) mg/dL Hemoglobin A1c 8.2 H (4.0-6.0) % 12/19/19 12/19/19 12/19/19 Range/Units 06:51 07:23 07:23 WBC 13.5 H (3.8-10.6) k/uL RBC 4.02 L (4.30-5.90) m/uL Hgb 11.5 L (13.0-17.5) gm/dL Hct 35.9 L (39.0-53.0) % Neutrophils # 10.6 H (1.3-7.7) k/uL BUN 47 H (9-20) mg/dL Creatinine 3.38 H (0.66-1.25) mg/dL Glucose 113 H (74-99) mg/dL POC Glucose (mg/dL) 116 H (75-99) mg/dL Hemoglobin A1c (4.0-6.0) % 12/19/19 Range/Units 11:55 WBC (3.8-10.6) k/uL RBC (4.30-5.90) m/uL Hgb (13.0-17.5) gm/dL Hct (39.0-53.0) % Neutrophils # (1.3-7.7) k/uL BUN (9-20) mg/dL Creatinine (0.66-1.25) mg/dL Glucose (74-99) mg/dL POC Glucose (mg/dL) 284 H (75-99) mg/dL Hemoglobin A1c (4.0-6.0) % Assessment and Plan Assessment: - severe hemorrhagic cystitis and a posterior bladder wall mucosal tear. 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 -Left-sided hydronephrosis. -Bilateral nephrolithiasis -Possible Reflux esophagitis -Coronary artery disease with stent about 15 months ago -Diabetes mellitus type 2 -Essential hypertension -Hypothyroid -Chronic kidney disease stage III from bilateral kidney stones -Hypertensive kidney disease Plan: This is a pleasant 79 years old male who presents with hemorrhagic cystitis, sigmoid diverticulitis and possible vesico-colonic fistula. Urine biopsy showing urothelial cancer. We'll keep the Landin catheter for now, it has clear urine. Dr. See cleared the patient for discharge tomorrow since he cannot have cystectomy done for him until next week at least. Continue with Lasix and turned creatinine Follow-up recommendation by technology lab teacher and oncologist. Also patient has been seen by surgeon and nursing care attendant I talked to the patient several times about going to rehab, sometimes he refuses and other times he agrees but then changes his mind and refuses again Labs and medication were reviewed.. Continue same treatment. Continue with symptomatic treatment. Resume home medication. Monitor lytes and vitals. DVT and GI prophylaxis. Further recommendations of the clinical course of the patient DVT prophylaxis: no Subcutaneous heparin in the view of hematuria GI Prophylaxis: pi PT/OT: Recommended subacute rehab but patient has been refusing Prognosis is guarded
[2019-12-19] MEDS ORDERED: CEPHALEXIN 500 MG CAP PO SCH ×2 (12:30→21:00)
--- NOTE | 2019-12-19 13:43 | PN ---
PROGRESS NOTE Patient is seen for followup for acute kidney injury. Renal function has been improving with serum creatinine down to 3.38 from 4.1 yesterday. There are plans for possible urological intervention. Awaiting further communication from [facility]. PHYSICAL EXAMINATION: On examination today, blood pressure is 136/73, heart rate 85 per minute, patient is afebrile. Examination of the heart S1, S2. Examination of the lungs, bilateral breath sounds are heard. Abdomen is soft. Examination of lower extremities shows no edema. PHARMACY OPERATIONS SPECIALIST exam grossly intact. LAB: Show hemoglobin 11.5, sodium 138, potassium 4.5, BUN 47, creatinine 3.38. ASSESSMENT: 1. Acute kidney injury with component of obstructive uropathy as well as prerenal acute kidney injury, currently improving. There are plans for consideration of urological surgery as well out of [facility]. 2. 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 3. Hypertension with chronic kidney disease. 4. Hypervolemic hyponatremia. 5. Metabolic acidosis. 6. Mild hyperkalemia associated with renal failure, now improved. PLAN: Continue with the Landin catheter. Continue with current dose of Lasix. Continue to avoid nephrotoxic medications. MMODL / IJN: [id number] /
[2019-12-19 17:17] LABS: Glucose,Whole Blood 177 mg/dL (75-99)
[2019-12-19] MEDS: ACETAMINOPHEN TAB 325 MG TAB PO PRN (17:29)
[2019-12-19 21:08] LABS: Glucose,Whole Blood 214 mg/dL (75-99)
[2019-12-19] MEDS: ATORVASTATIN 20 MG TAB PO SCH (21:28)
[2019-12-19] MEDS: SENNOSIDES 8.6 MG TAB PO SCH (21:28)
[2019-12-19] MEDS: INSULIN DETEMIR (LEVEMIR) 100 UNIT/ML SYR SQ SCH (21:29)
[2019-12-20] MEDS: LEVOTHYROXINE 50 MCG TAB PO SCH (06:16)
[2019-12-20 06:48] LABS: Glucose,Whole Blood 162 mg/dL (75-99)
[2019-12-20] MEDS: MORPHINE SULFATE 2 MG/ML SYRINGE IVP PRN ×2 (07:13→13:59)
[2019-12-20 07:15] VITALS: BP 153/75; PULSE 96; RESP 18; TEMP 98
[2019-12-20] MEDS: LIDOCAINE 5% PATCH TOPICAL SCH (07:19)
[2019-12-20 07:36] LABS: Basophils # (A) 0.1 k/uL (0-0.2); Basophils % (A) 1 %; Eosinophils # (A) 0.3 k/uL (0-0.7); Eosinophils % (A) 2 %; HGB 12.2 gm/dL (13.0-17.5); Hypochromasia Moderate; Lymphocytes # (A) 2.2 k/uL (1.0-4.8); Lymphocytes % (A) 12 %; MCH 27.8 pg (25.0-35.0); MCHC 30.5 g/dL (31.0-37.0); MCV 91.3 fL (80.0-100.0); Mean Platelet Volume 7.1; Monocytes # (A) 1.2 k/uL (0-1.0); Monocytes % (A) 7 %; Neutrophils # (A) 13.9 k/uL (1.3-7.7); Neutrophils % (A) 77 %; Platelet Count 553 k/uL (150-450); RBC 4.38 m/uL (4.30-5.90); WBC 18.2 k/uL (3.8-10.6)
[2019-12-20 07:55] LABS: Calcium 9.3 mg/dL (8.4-10.2); Potassium 4.8 mmol/L (3.5-5.1)
[2019-12-20] MEDS: DOCUSATE 100 MG CAP PO SCH (08:14)
[2019-12-20] MEDS: CYANOCOBALAMIN 500 MCG TAB PO SCH (08:14)
[2019-12-20] MEDS: PANTOPRAZOLE 40 MG TABLET PO SCH (08:14)
[2019-12-20] MEDS: OXYBUTYNIN CHLORIDE 5 MG TAB PO SCH (08:14)
[2019-12-20] MEDS: cloNIDine HCL 0.1 MG TAB PO SCH (08:14)
[2019-12-20] MEDS: INSULIN ASPART (NovoLOG) 100 UNIT/ML VIAL SQ SCH ×2 (08:15→12:46)
[2019-12-20] MEDS ORDERED: CEFEPIME 1 GM in SODIUM CHLORIDE 0.9% 100 ML IVPB SCH (08:15)
[2019-12-20] MEDS ORDERED: CEFEPIME 1 GM in SODIUM CHLORIDE 0.9% 50 ML IVPB SCH (08:15)
[2019-12-20] MEDS: ISOSORBIDE MONONITRATE ER 30 MG TAB.ER.24H PO SCH (08:15)
[2019-12-20] MEDS: FUROSEMIDE 10 MG/ML 4 ML VIAL IV SCH (08:15)
[2019-12-20] MEDS: ENOXAPARIN 30 MG/0.3 ML SYRINGE SQ SCH (08:15)
[2019-12-20] MEDS: HYDROcodone/APAP 5-325MG 1 EACH TAB PO PRN (08:26)
[2019-12-20] MEDS ORDERED: CEPHALEXIN 500 MG CAP PO SCH (09:00)
--- NOTE | 2019-12-20 09:26 | P.PN ---
Subjective Progress Note Date: 12/20/19 the patient continues to slowly recuperating. We have contacted [facility] they are making arrangements for acceptance of this patient for a radical cystectomy. The patient can go home from a urologic standpoint as the surgery at [facility] will be between 5 and 10 days from now. His creatinine has dropped to 3.1. He is having some right flank pain. We discussed a nephrostomy tube. He declines this at this point in time. He will go home with the Landin catheter and some pain medicine. Objective - Vital Signs Vital signs: Vital Signs Temp 98.0 F 12/20/19 07:00 Pulse 96 12/20/19 07:00 Resp 18 12/20/19 08:00 BP 153/75 12/20/19 07:00 Pulse Ox 94 L 12/20/19 07:00 Intake & Output 12/19/19 12/20/19 12/20/19 18:59 06:59 18:59 Output Total 900 1500 Balance -900 -1500 Output: Urine 900 1500 Other: Voiding Method Indwelling Catheter Indwelling Catheter Indwelling Catheter - Labs CBC & Chem 7: 12/20/19 06:36 12/20/19 06:36 Labs: Abnormal Lab Results - Last 24 Hours (Table) 12/19/19 12/19/19 12/19/19 Range/Units 07:23 11:55 17:16 WBC (3.8-10.6) k/uL Hgb (13.0-17.5) gm/dL MCHC (31.0-37.0) g/dL Plt Count (150-450) k/uL Neutrophils # (1.3-7.7) k/uL Monocytes # (0-1.0) k/uL BUN (9-20) mg/dL Creatinine (0.66-1.25) mg/dL Glucose (74-99) mg/dL POC Glucose (mg/dL) 284 H 177 H (75-99) mg/dL Procalcitonin 0.59 H (0.02-0.09) ng/mL 12/19/19 12/20/19 12/20/19 Range/Units 21:07 06:36 06:36 WBC 18.2 H (3.8-10.6) k/uL Hgb 12.2 L (13.0-17.5) gm/dL MCHC 30.5 L (31.0-37.0) g/dL Plt Count 553 H (150-450) k/uL Neutrophils # 13.9 H (1.3-7.7) k/uL Monocytes # 1.2 H (0-1.0) k/uL BUN 46 H (9-20) mg/dL Creatinine 3.20 H (0.66-1.25) mg/dL Glucose 152 H (74-99) mg/dL POC Glucose (mg/dL) 214 H (75-99) mg/dL Procalcitonin (0.02-0.09) ng/mL 12/20/19 Range/Units 06:46 WBC (3.8-10.6) k/uL Hgb (13.0-17.5) gm/dL MCHC (31.0-37.0) g/dL Plt Count (150-450) k/uL Neutrophils # (1.3-7.7) k/uL Monocytes # (0-1.0) k/uL BUN (9-20) mg/dL Creatinine (0.66-1.25) mg/dL Glucose (74-99) mg/dL POC Glucose (mg/dL) 162 H (75-99) mg/dL Procalcitonin (0.02-0.09) ng/mL
[2019-12-20 12:03] LABS: Glucose,Whole Blood 181 mg/dL (75-99)
--- NOTE | 2019-12-20 19:18 | P.DS ---
Providers Date of admission: 12/05/19 15:36 Attending physician: Alexander Carrillo Consults: 12/05/19 17:42 Consult Physician Urgent Consulting Provider: Ryan Garcia Consult Reason/Comments: possible colovesicular fistula Do you want consulting provider notified?: Yes Consult Physician Urgent Consulting Provider: Andrew Esteban Consult Reason/Comments: acute uti Do you want consulting provider notified?: Already Contacted 12/12/19 08:26 Consult Physician Urgent Consulting Provider: Maciej Correa Consult Reason/Comments: urothelial cancer Do you want consulting provider notified?: Yes 12/15/19 14:18 Consult Physician Routine Consulting Provider: Cheryl Zaragoza Consult Reason/Comments: JUDD Do you want consulting provider notified?: Yes 12/15/19 14:40 Consult Physician Routine Consulting Provider: Aren Bhatia Consult Reason/Comments: evaluate for inpatient rehab Do you want consulting provider notified?: Yes Primary care physician: [facility] Course: Patient was transferred to [facility] Diagnoses: -severe hemorrhagic cystitis and a posterior bladder wall mucosal tear. 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 -Left-sided hydronephrosis. -Bilateral nephrolithiasis -Possible Reflux esophagitis -Coronary artery disease with stent about 15 months ago -Diabetes mellitus type 2 -Essential hypertension -Hypothyroid -Chronic kidney disease stage III from bilateral kidney stones -Hypertensive kidney disease Hospital course: This is a pleasant 79 years old male who presents with hematuria secondary to severe hemorrhagic cystitis ,cystoscopy done on 12/07 with urinary bladder biopsy showing invasive urothelial cancer, also is been treated for UTI with cefepime and IV Flagyl, also is on antibiotics for sigmoid diverticulitis and there was suspicion of possible vesico-colonic fistula with surgery and GI and urology team on the case. With the treatment patient abdominal cramps improved, his urine becomes clear yellow. He is status post transurethral resection of bladder tumor on 12/12, postoperatively patient creatinine went up 1.6 to 3.9, renal ultrasound showed bilateral hydronephrosis, mild on the right side. On Site Manager recommended nephrostomy tube placement and cystectomy which [facility] Doctor Eulalia talked to [facility] but they cannot do surgery until next week so we recommend to keep the Landin catheter and an discharge the patient for outpatient follow-up Nephrology also following the case recommended to stop IV fluids and place him on Lasix, since then his creatinine trending down from 4.5 down to 3.2 However today his WBC went up from 13 K up to 18 K, he still complaining of from right flank pain, also for calcitonin was trending up when checked yesterday from 0.11 up to 0.59, patient was placed on cefepime. Workup by oncology shows no evidence of metastatic disease, patient may need systemic therapy as per oncologist after cystectomy, patient will need to follow-up with hematology/oncology service as an outpatient Still has Landin catheter With clear urine On the day of discharge patient is fully awake and oriented, he denies chest pain or dyspnea, no nausea vomiting, is tolerating diet well. He still have some suprapubic pain and mild tenderness, no rebound tenderness. Landin catheter is in place Patient was cleared for discharge by all consultants including urologist, for discharge, however because of worsening leukocytosis and hyperal calcitonin and need for IV antibiotics and complex urological problems that might need Urgent Intervention It Was [place] Patient Will Need Higher Level of Care. I Spoke with from [facility] and he kindly accepted the patient I spoke to the patient and he agrees for transfer Patient is stable to be transferred, prognosis remains guarded Gen: patient is a AAOx3, no distress CVS: S1-S2, RRR, no murmur Lungs: B/L CTA, no wheezing -Abdomen: soft, no distention, mild suprapubic tenderness, positive bowel sounds. Landin catheter is in place. Right Flank tenderness Extremity: no leg edema or induration Time spent more than 35 minutes Patient Condition at Discharge: Stable Plan - Discharge Summary Discharge Rx Participant: No New Discharge Prescriptions: No Action Simvastatin [Zocor] 40 mg PO HS Cyanocobalamin [Vitamin B-12] 500 mcg PO DAILY Cholecalciferol [Vitamin D3] 1,000 unit PO DAILY Ascorbic Acid [Vitamin C] 500 mg PO DAILY Losartan Potassium 50 mg PO DAILY Insulin Aspart [NovoLOG] See Protocol SQ TID-W/MEALS quiNINE sulfate [quiNINE SULFATE] 324 mg PO HS Levothyroxine Sodium [Synthroid] 50 mcg PO DAILY Isosorbide Mononitrate [Isosorbide Mononitrate ER] 30 mg PO DAILY Insulin Glargine [Lantus] 20 unit SQ HS Doxycycline Hyclate [Vibramycin] 100 mg PO BID Clopidogrel [Plavix] 75 mg PO HS Discharge Medication List Ascorbic Acid [Vitamin C] 500 mg PO DAILY 03/31/18 [History] Cholecalciferol [Vitamin D3] 1,000 unit PO DAILY 03/31/18 [History] Cyanocobalamin [Vitamin B-12] 500 mcg PO DAILY 03/31/18 [History] Losartan Potassium 50 mg PO DAILY 03/31/18 [History] Simvastatin [Zocor] 40 mg PO HS 03/31/18 [History] Insulin Aspart [NovoLOG] See Protocol SQ TID-W/MEALS 08/01/18 [History] quiNINE sulfate [quiNINE SULFATE] 324 mg PO HS 08/01/18 [History] Insulin Glargine [Lantus] 20 unit SQ HS 10/10/19 [History] Isosorbide Mononitrate [Isosorbide Mononitrate ER] 30 mg PO DAILY 10/10/19 [History] Levothyroxine Sodium [Synthroid] 50 mcg PO DAILY 10/10/19 [History] Clopidogrel [Plavix] 75 mg PO HS 12/05/19 [History] Doxycycline Hyclate [Vibramycin] 100 mg PO BID 12/05/19 [History] Follow up Appointment(s)/Referral(s): Maciej Correa MD [STAFF PHYSICIAN] - 2 Weeks Cheryl Zaragoza MD [STAFF PHYSICIAN] - 10 Days [facility], [NON-STAFF] - Pola Rodriguez MD [Primary Care Provider] - 1-2 days Andrew Esteban MD [STAFF PHYSICIAN] - 3 Days Activity/Diet/Wound Care/Special Instructions: heart healthy diet activity is limited till you see your doctor Discharge Disposition: OTHER INSTITUTION NOT DEFINED
--- NOTE | 2019-12-20 23:05 | PN ---
PROGRESS NOTE Patient is seen for followup for chronic kidney disease and acute kidney injury. He is currently sitting up in a bedside chair. Patient is comfortable. Denies any complaints. On examination, blood pressure was 127/69 early this morning and then 153/75, heart rate 96 per minute. Patient is afebrile. EXAMINATION OF THE HEART: S1 and S2. EXAMINATION OF LUNGS: Bilateral breath sounds are heard. ABDOMEN: Soft, non-tender. Examination of lower extremities shows edema 1+ bilaterally. OPERATING ROOM REGISTERED NURSE exam grossly intact. Labs show sodium 138, potassium 4.8, BUN 46, serum creatinine 3.2 mg/dL, hemoglobin 12.2. ASSESSMENT: 1. Acute kidney injury, obstructive uropathy, being followed by Urology. Patient will have further urological intervention out of [facility]. Currently maintained on Lasix. 2. Chronic kidney disease secondary to nephrosclerosis, stage 3. Baseline creatinine 1.6 to 1.8 mg/dL. 3. Hypervolemic hyponatremia, improved. 4. Bladder cancer; to be scheduled for radical cystectomy and ileal loop urostomy as outpatient at [facility]. PLAN: Continue with Landin catheter. Continue to maintain patient on loop diuretics and repeat labs in 3 to 4 days as outpatient. MMODL / IJN: [id number] /
[2019-12-21] MEDS ORDERED: CEFEPIME 1 GM in SODIUM CHLORIDE 0.9% 50 ML IVPB SCH (09:00)
== END 2019-12-20 14:44 | disposition short-term general hospital (02) | DRG 668 ==
LOC: EC 13:13 → 4SSUR 15:36
PROVIDERS: ADMIT Hospitalist; ATTEND Hospitalist
PROC: 0TBB8ZX Excision of Bladder, Via Natural or Artificial Opening Endoscopic, Diagnostic (ICD-10-PCS; 2019-12-08)
PROC: 0TCB8ZZ Extirpation of Matter from Bladder, Via Natural or Artificial Opening Endoscopic (ICD-10-PCS; 2019-12-08)
PROC: 0TBB8ZZ Excision of Bladder, Via Natural or Artificial Opening Endoscopic (ICD-10-PCS; principal; 2019-12-13 12:15)
DX: C67.9 Malignant neoplasm of bladder, unspecified (principal); N17.0 Acute kidney failure with tubular necrosis; E87.1 Hypo-osmolality and hyponatremia; E87.2 Acidosis; K56.7 Ileus, unspecified; K57.32 Diverticulitis of large intestine without perforation or abscess without bleeding; N13.6 Pyonephrosis; N32.1 Vesicointestinal fistula; R18.8 Other ascites; S37.23XA Laceration of bladder, initial encounter; E03.9 Hypothyroidism, unspecified; E11.22 Type 2 diabetes mellitus with diabetic chronic kidney disease; E78.5 Hyperlipidemia, unspecified; E87.5 Hyperkalemia; E87.70 Fluid overload, unspecified; I12.9 Hypertensive chronic kidney disease with stage 1 through stage 4 chronic kidney disease, or unspecified chronic kidney disease; I25.10 Atherosclerotic heart disease of native coronary artery without angina pectoris; K21.0 Gastro-esophageal reflux disease with esophagitis; K52.9 Noninfective gastroenteritis and colitis, unspecified; T40.605A Adverse effect of unspecified narcotics, initial encounter; K59.03 Drug induced constipation; Z11.59 Encounter for screening for other viral diseases; T44.3X5A Adverse effect of other parasympatholytics [anticholinergics and antimuscarinics] and spasmolytics, initial encounter; K63.5 Polyp of colon; N18.3 Chronic kidney disease, stage 3 (moderate); N32.89 Other specified disorders of bladder; Z74.1 Need for assistance with personal care; K76.0 Fatty (change of) liver, not elsewhere classified; Z79.02 Long term (current) use of antithrombotics/antiplatelets; Z79.4 Long term (current) use of insulin; Z79.890 Hormone replacement therapy; Z79.899 Other long term (current) drug therapy; Z87.442 Personal history of urinary calculi; Z87.891 Personal history of nicotine dependence; Z95.5 Presence of coronary angioplasty implant and graft; R53.81 Other malaise; N13.9 Obstructive and reflux uropathy, unspecified; Z88.5 Allergy status to narcotic agent; Z88.1 Allergy status to other antibiotic agents; Z91.041 Radiographic dye allergy status
CPT/HCPCS: 36415; 71250; 74018; 74176; 76770; 78306; 80048; 80053; 81001; 82728; 83036; 83540; 83550; 83605; 83735; 84145; 85025; 85027; 87086; 88108; 88305; 88307; 93005; 96361; 96365; 99285

== ENCOUNTER 2020-01-12 11:24 | Inpatient (IN) | payer MEDICARE ==
[2020-01-12] MEDS ORDERED: SODIUM CHLORIDE 0.9% 1,000 ML IV STA ×2 (11:45)
[2020-01-12] MEDS ORDERED: ONDANSETRON 4 MG/2 ML VIAL IVP STA (12:03)
[2020-01-12 12:19] LABS: Basophils # (A) 0.1 k/uL (0-0.2); Basophils % (A) 0 %; Eosinophils # (A) 0.1 k/uL (0-0.7); Eosinophils % (A) 0 %; HCT 37.3 % (39.0-53.0); HGB 11.4 gm/dL (13.0-17.5); Hypochromasia Slight; Lymphocytes # (A) 1.5 k/uL (1.0-4.8); Lymphocytes % (A) 6 %; MCH 26.7 pg (25.0-35.0); MCHC 30.6 g/dL (31.0-37.0); Mean Platelet Volume 7.6; Monocytes % (A) 4 %; Neutrophils # (A) 23.4 k/uL (1.3-7.7); Neutrophils % (A) 88 %; Platelet Count 533 k/uL (150-450); RBC 4.29 m/uL (4.30-5.90); RDW 15.1 % (11.5-15.5); WBC 26.5 k/uL (3.8-10.6)
[2020-01-12 12:43] LABS: Albumin 3.6 g/dL (3.5-5.0); Calcium 9.7 mg/dL (8.4-10.2); Magnesium 2.4 mg/dL (1.6-2.3); Potassium 5.2 mmol/L (3.5-5.1); Total Bilirubin 0.4 mg/dL (0.2-1.3)
--- NOTE | 2020-01-12 12:43 | XR ---
EXAMINATION TYPE: XR chest 2V DATE OF EXAM: 01/12/2020 COMPARISON: 06/28/2019 HISTORY: 79 year-old male shortness of breath, difficulty breathing TECHNIQUE: AP and lateral views FINDINGS: The cardiomediastinal silhouette, aorta, and pulmonary vasculature are within normal limits. Some str wyatt atelectasis at the left base. Otherwise, lungs and pleural spaces are clear. IMPRESSION: No acute cardiopulmonary process.
[2020-01-12 12:53] LABS: Partial Thromboplastin Time 23.6 sec (22.0-30.0); Prothrombin Time 10.2 sec (9.0-12.0)
[2020-01-12] MEDS ORDERED: cefTRIAXone IN SWFI 1,000 MG/10 ML SYRINGE IVP STA (13:17)
--- NOTE | 2020-01-12 13:23 | ED ---
General Adult HPI - General Chief complaint: Shortness of Breath Stated complaint: sob Time Seen by Provider: 01/12/20 11:41 Source: patient, RN notes reviewed, old records reviewed Mode of arrival: wheelchair Limitations: no limitations - History of Present Illness Initial comments: 79-year-old male history of bladder cancer presents from the oncologist office for evaluation of hypotension and tachycardia. Patient states he's had nausea for the past 2 weeks. He was discharged from an outside facility after evaluation of metastatic colon cancer. He did have a laparoscopy, according to the patient was no surgical intervention. He states he has had vomiting and has been unable to keep anything down since the time of discharge 2 weeks ago. He denies chest pain. He does report some abdominal pain and discomfort which is been constant since the time of discharge. - Related Data Home Medications Medication Instructions Recorded Confirmed Ascorbic Acid [Vitamin C] 500 mg PO DAILY 03/31/18 12/05/19 Cholecalciferol [Vitamin D3] 1,000 unit PO DAILY 03/31/18 12/05/19 Cyanocobalamin [Vitamin B-12] 500 mcg PO DAILY 03/31/18 12/05/19 Losartan Potassium 50 mg PO DAILY 03/31/18 12/05/19 Simvastatin [Zocor] 40 mg PO HS 03/31/18 12/05/19 Insulin Aspart [NovoLOG] See Protocol SQ TID-W/MEALS 08/01/18 12/05/19 quiNINE sulfate [quiNINE SULFATE] 324 mg PO HS 08/01/18 12/05/19 Insulin Glargine [Lantus] 20 unit SQ HS 10/10/19 12/05/19 Isosorbide Mononitrate [Isosorbide 30 mg PO DAILY 10/10/19 12/05/19 Mononitrate ER] Levothyroxine Sodium [Synthroid] 50 mcg PO DAILY 10/10/19 12/05/19 Clopidogrel [Plavix] 75 mg PO HS 12/05/19 12/05/19 Doxycycline Hyclate [Vibramycin] 100 mg PO BID 12/05/19 12/05/19 Allergies Allergy/AdvReac Type Severity Reaction Status Date / Time ciprofloxacin [From Cipro] Allergy Swelling Verified 01/12/20 11:37 propoxyphene [From Darvon] Allergy Hallucinati Verified 01/12/20 11:37 ons Iodinated Contrast Media AdvReac Dyspnea Verified 01/12/20 11:37 [Iodinated Contrast- Oral and IV Dye] Review of Systems ROS Statement: Those systems with pertinent positive or pertinent negative responses have been documented in the HPI. ROS Other: All systems not noted in ROS Statement are negative. Past Medical History Past Medical History: Cancer, Chest Pain / Angina, Diabetes Mellitus, Hypertension Additional Past Medical History / Comment(s): shortness of breath, bowel and bladder ca History of Any Multi-Drug Resistant Organisms: None Reported Past Surgical History: Back Surgery Additional Past Surgical History / Comment(s): hand surgery. back surgery with 4 screws and 2 rods Past Anesthesia/Blood Transfusion Reactions: No Reported Reaction Additional Past Anesthesia/Blood Transfusion Reaction / Comment(s): son allergic to one type of anesthesia Past Psychological History: No Psychological Hx Reported Smoking Status: Never smoker Past Alcohol Use History: None Reported Past Drug Use History: None Reported - Past Family History Mother Family Medical History: Unable to Obtain Additional Family Medical History / Comment(s): adopted General Exam Limitations: no limitations General appearance: alert, in no apparent distress Head exam: Present: atraumatic, normocephalic Eye exam: Present: normal appearance, PERRL ENT exam: Present: mucous membranes dry Neck exam: Present: normal inspection. Absent: tenderness, meningismus Respiratory exam: Present: normal lung sounds bilaterally. Absent: respiratory distress, wheezes Cardiovascular Exam: Present: normal rhythm, tachycardia GI/Abdominal exam: Present: soft, distended, other (Surgical incisions are well- healed). Absent: tenderness, guarding, rebound Extremities exam: Present: normal inspection, normal capillary refill. Absent: pedal edema Neurological exam: Present: alert, oriented X3, CN II-XII intact. Absent: motor sensory deficit Psychiatric exam: Present: normal affect, normal mood Skin exam: Present: warm, dry, intact. Absent: cyanosis, diaphoretic Course Vital Signs 01/12/20 01/12/20 01/12/20 11:35 11:55 12:30 Temperature 97.8 F Pulse Rate 113 H 123 H 95 Respiratory 18 23 14 Rate Blood Pressure 64/42 91/59 112/60 O2 Sat by Pulse 98 96 97 Oximetry 01/12/20 01/12/20 12:40 13:35 Temperature 98.2 F Pulse Rate 95 101 H Respiratory 17 16 Rate Blood Pressure 127/62 146/70 O2 Sat by Pulse 96 99 Oximetry - Reevaluation(s) Reevaluation #1: 01/12/20 13:50 Patient is initially hypotensive, this responds to normotension after 1 L bolus. EKG Findings - EKG Comments: EKG Findings:: EKG: Sinus tachycardia with PVC, right bundle branch block, rate of 107, HI interval 146, QRS duration 128, QTC [address] segment elevation Medical Decision Making - Medical Decision Making 79-year-old male presenting with hypotension, vomiting and inability to tolerate anything orally. Initial blood pressure 60 systolic. Patient is given 1 L normal saline bolus. Workup is initiated. He has a leukocytosis of 26,000, uncertain etiology. He has a hemoglobin of 11.4. He has some electrolyte de rangement and a creatinine of 1.7. Troponin is negative. Chest x-rays negative for focal pneumonia or acute findings. Urinalysis has not been obtained, these results are pending in addition to urine culture. Blood cultures are pending. Lactic acid is elevated and combination with high white count. He is started on antibiotics empirically in the emergency department. [facility], with oncology on consult. I did order a CT of the abdomen and pelvis to rule out infectious source, this test has not been done and results are pending. - Lab Data Result diagrams: 01/12/20 11:59 01/12/20 11:59 Lab Results 01/12/20 01/12/20 01/12/20 Range/Units 11:59 11:59 11:59 WBC 26.5 H (3.8-10.6) k/uL RBC 4.29 L (4.30-5.90) m/uL Hgb 11.4 L (13.0-17.5) gm/dL Hct 37.3 L (39.0-53.0) % MCV 87.0 (80.0-100.0) fL MCH 26.7 (25.0-35.0) pg MCHC 30.6 L (31.0-37.0) g/dL RDW 15.1 (11.5-15.5) % Plt Count 533 H (150-450) k/uL Neutrophils % 88 % Lymphocytes % 6 % Monocytes % 4 % Eosinophils % 0 % Basophils % 0 % Neutrophils # 23.4 H (1.3-7.7) k/uL Lymphocytes # 1.5 (1.0-4.8) k/uL Monocytes # 1.0 (0-1.0) k/uL Eosinophils # 0.1 (0-0.7) k/uL Basophils # 0.1 (0-0.2) k/uL Hypochromasia Slight PT 10.2 (9.0-12.0) sec INR 1.0 (<1.2) APTT 23.6 (22.0-30.0) sec Sodium 132 L (137-145) mmol/L Potassium 5.2 H (3.5-5.1) mmol/L Chloride 96 L (98-107) mmol/L Carbon Dioxide 20 L (22-30) mmol/L Anion Gap 16 mmol/L BUN 40 H (9-20) mg/dL Creatinine 1.70 H (0.66-1.25) mg/dL Est GFR (CKD-EPI)AfAm 43 (>60 ml/min/1.73 sqM) Est GFR (CKD-EPI)NonAf 37 (>60 ml/min/1.73 sqM) Glucose 248 H (74-99) mg/dL Plasma Lactic Acid Alex (0.7-2.0) mmol/L Calcium 9.7 (8.4-10.2) mg/dL Magnesium 2.4 H (1.6-2.3) mg/dL Total Bilirubin 0.4 (0.2-1.3) mg/dL AST 22 (17-59) U/L ALT 31 (4-49) U/L Alkaline Phosphatase 174 H (38-126) U/L Troponin I (0.000-0.034) ng/mL Total Protein 7.0 (6.3-8.2) g/dL Albumin 3.6 (3.5-5.0) g/dL 01/12/20 01/12/20 Range/Units 11:59 11:59 WBC (3.8-10.6) k/uL RBC (4.30-5.90) m/uL Hgb (13.0-17.5) gm/dL Hct (39.0-53.0) % MCV (80.0-100.0) fL MCH (25.0-35.0) pg MCHC (31.0-37.0) g/dL RDW (11.5-15.5) % Plt Count (150-450) k/uL Neutrophils % % Lymphocytes % % Monocytes % % Eosinophils % % Basophils % % Neutrophils # (1.3-7.7) k/uL Lymphocytes # (1.0-4.8) k/uL Monocytes # (0-1.0) k/uL Eosinophils # (0-0.7) k/uL Basophils # (0-0.2) k/uL Hypochromasia PT (9.0-12.0) sec INR (<1.2) APTT (22.0-30.0) sec Sodium (137-145) mmol/L Potassium (3.5-5.1) mmol/L Chloride (98-107) mmol/L Carbon Dioxide (22-30) mmol/L Anion Gap mmol/L BUN (9-20) mg/dL Creatinine (0.66-1.25) mg/dL Est GFR (CKD-EPI)AfAm (>60 ml/min/1.73 sqM) Est GFR (CKD-EPI)NonAf (>60 ml/min/1.73 sqM) Glucose (74-99) mg/dL Plasma Lactic Acid Alex 3.5 H* (0.7-2.0) mmol/L Calcium (8.4-10.2) mg/dL Magnesium (1.6-2.3) mg/dL Total Bilirubin (0.2-1.3) mg/dL AST (17-59) U/L ALT (4-49) U/L Alkaline Phosphatase (38-126) U/L Troponin I <0.012 (0.000-0.034) ng/mL Total Protein (6.3-8.2) g/dL Albumin (3.5-5.0) g/dL Critical Care Time Critical Care Time: Yes Total Critical Care Time: 35 Disposition Clinical Impression: Sepsis Disposition: ADMITTED IP TO THIS [facility] Condition: Stable Is patient prescribed a controlled substance at d/c from ED?: No Referrals: Pola Rodriguez MD [Primary Care Provider] - 1-2 days Decision to Admit Reason: Admit from EC Decision Date: 01/12/20 Decision Time: 13:52
[2020-01-12] MEDS ORDERED: fentaNYL (PF) 50 MCG/ML 2 ML AMP IVP STA (13:24)
[2020-01-12] MEDS ORDERED: MORPHINE SULFATE 4 MG/ML SYRINGE IV PRN (13:45)
[2020-01-12] MEDS ORDERED: PIPERACILLIN-TAZOBACTAM 3.375 GM in SODIUM CHLORIDE 0.9% 100 ML IVPB STA (13:45)
[2020-01-12] MEDS ORDERED: NALOXONE 0.4 MG/ML 1 ML VIAL IV PRN (13:45)
--- NOTE | 2020-01-12 15:44 | CT ---
EXAMINATION TYPE: CT abdomen pelvis wo con DATE OF EXAM: 01/12/2020 COMPARISON: CT chest abdomen pelvis 12/12/2019, chest abdomen and pelvis 12/05/2019. CT abdomen pelvis 1 . MRI lumbar spine 08/10/2011 HISTORY: Pain and vomiting. History of bladder cancer. CT DLP: 625.5 mGycm Automated exposure control for dose reduction was used. TECHNIQUE: Helical acquisition of images was performed from the lung bases through the pelvis. CONTRAST: Performed without Oral Contrast and without intravenous contrast. FINDINGS: LUNG BASES: No pericardial or pleural effusion. Calcified coronary artery disease. LIVER: Fatty liver. Left dome 2.2 x 1.8 x 2.0 cm fluid dense lesion (201:16, 203:69), was likely pres ent on 03/20/2019 CT comparison retrospectively with very subtle hypodense lesion (6:41) and likely n ot significantly changed. BILIARY SYSTEM: No intrahepatic or extrahepatic biliary ductal dilatation. PANCREAS: No peripancreatic inflammation. SPLEEN: Not enlarged. ADRENALS: Normal. KIDNEYS: Redemonstrated bilateral nonobstructing nephrolithiasis, largest measuring up to 5 mm bilate rally. Peripelvic renal cysts. There is mild right sided inflammatory stranding around the right uche l collecting system. BOWEL: No evidence of bowel obstruction. There is thickening and inflammatory stranding of the secon d portion of the duodenum (202:33). There is sigmoid colon diverticulosis. PERITONEUM: There is a large focal fluid collection with air-fluid level in the lower abdomen measuri ng 9.3 x 6.3 x 8.9 cm (201:69, 203:78) which appears contiguous with the left lower quadrant sigmoid colon. ADENOPATHY: Geoffrey hepatis enlarged lymph node measures 1.2 x 1.5 cm (201:29). Portacaval enlarged ly mph node measures 1.2 x 2.9 cm (201:33). PELVIS: The urinary bladder is incompletely distended. There is likely preserved fat plane between th e urinary bladder and the pelvic fluid and gas collection. VASCULATURE: No abdominal aortic aneurysm. Moderate calcified atherosclerotic disease. MUSCULOSKELETAL: No aggressive osseous destructive lesions. 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 IMPRESSION: 1. Lower abdomen 9.3 x 6.3 x 8.9 cm focal fluid collection with air-fluid level, contiguous with the sigmoid colon, and may be due to diverticular abscess. 2. Duodenitis of the second portion of the duodenum with no associated focal fluid collection. 3. Enlarged portacaval and geoffrey hepatis lymph nodes. Findings may be reactive. Attention on follow-u p imaging. 4. Mild inflammatory stranding of the right renal collecting system. Recommend correlation with urina lysis. 5. Fatty liver. 6. Left hepatic 2.2 cm fluid dense lesion, which retrospectively was possibly present and very subtle on 03/20/2019 CT comparison and may represent hepatic cyst. This lesion was not definitively seen on 12/05/2019 and 12/12/2019 CT comparison. Attention on follow-up imaging for stability. Dr. Leigha العراقي discussed findings with [facility] nursing Ale Neil RN via the phone on 2019 at 3:30 PM, and results were acknowledged. A Sanders level critical message alert has been initiated for Maciej Correa MD~[id number] via the [email or web address] Critical Results System on 01/12/2020 3:33 PM. This message alert has been sent to Maciej Correa MD ~[id number] via the preferences provided by the clinician for the receipt of Radiology Critical Findings. Message ID [id number].
[2020-01-12] MEDS: ONDANSETRON 4 MG/2 ML VIAL IVP PRN (17:20)
--- NOTE | 2020-01-12 18:54 | NM ---
EXAMINATION TYPE: NM pul vent and perfuse DATE OF EXAM: 01/12/2020 COMPARISON: 06/28/2019 HISTORY: TECHNIQUE: Utilizing inhalation of 68.3 mCi Tc 99m DTPA aerosol and intravenous injection of 5.1 mCi of Tc 99m MAA, ventilation and perfusion images are acquired post injection in multiple projections. FINDINGS: There is fairly uniform perfusion of both lungs. There are tiny subsegmental peripheral perfusion def ects. There is no segmental type defect. There is no ventilation/perfusion mismatch.. IMPRESSION: There is a low probability of pulmonary embolism. Tiny matched perfusion defects. No change compared to old exam.
--- NOTE | 2020-01-12 19:26 | P.HPIM ---
History of Present Illness H&P Date: 01/12/20 Chief Complaint: Abdominal pain, generalized weakness 79-year-old male with PMH of bladder and colon cancer, CAD, hypertension is sent from his oncologist clinic for hypotension and tachycardia. Of note, patient was recently discharged from [facility] on December 30 after undergoing laparoscopy for bladder and colon cancer were nothing was removed. Since then, patient has been experiencing multiple episodes of nausea and vomiting along with vague abdominal pain and generalized weakness. He denies any headache, lower extremity edema, fever or chills, cough, chest pain, shortness of breath, palpitations, changes in urination or bowel habits. No changes in appetite or weight. He denies any dizziness, numbness/weakness/tingling of the extremities. In the ED, he was hypotensive with BP of 64/42 with heart rate of 113. CBC showed leukocytosis of 26.5, hemoglobin of 11.4 and platelet count of 533. D- dimer was 1.6 and VQ scan showed low probability of PE. CMP showed sodium 132, potassium of 5.2, chloride of 96, HCO3 20, BUN 40, creatinine 1.7, glucose 248. Lactic acid was 3.5. Troponin was less than 0.012, EKG showing sinus tachycardia with occasional premature ventricular complex. Chest x-ray was negative. CT abdomen and pelvis showed a 9.3 x 6.3 x 8.9 fluid collection with air-fluid level contiguous with sigmoid colon. Patient is admitted for diverticular abscess and sepsis with surgery and oncology on consult. Review of Systems Pertinent positives and negatives as discussed in HPI, a complete review of systems was performed and all other systems are negative. Past Medical History Past Medical History: Cancer, Chest Pain / Angina, Diabetes Mellitus, Hypertension Additional Past Medical History / Comment(s): shortness of breath, bowel and bladder ca History of Any Multi-Drug Resistant Organisms: None Reported Past Surgical History: Back Surgery Additional Past Surgical History / Comment(s): hand surgery. back surgery with 4 screws and 2 rods Past Anesthesia/Blood Transfusion Reactions: No Reported Reaction Additional Past Anesthesia/Blood Transfusion Reaction / Comment(s): son allergic to one type of anesthesia Past Psychological History: No Psychological Hx Reported Smoking Status: Never smoker Past Alcohol Use History: None Reported Past Drug Use History: None Reported - Past Family History Mother Family Medical History: Unable to Obtain Additional Family Medical History / Comment(s): adopted Medications and Allergies Home Medications Medication Instructions Recorded Confirmed Type Ascorbic Acid [Vitamin C] 500 mg PO DAILY 03/31/18 01/12/20 History Cholecalciferol [Vitamin D3] 1,000 unit PO DAILY 03/31/18 01/12/20 History Cyanocobalamin [Vitamin B-12] 500 mcg PO DAILY 03/31/18 01/12/20 History Losartan Potassium 50 mg PO DAILY 03/31/18 01/12/20 History Insulin Aspart [NovoLOG] See Protocol SQ TID-W/MEALS 08/01/18 01/12/20 History Insulin Glargine [Lantus] 20 - 30 unit SQ HS 10/10/19 01/12/20 History Isosorbide Mononitrate [Isosorbide 30 mg PO DAILY 10/10/19 01/12/20 History Mononitrate ER] Levothyroxine Sodium [Synthroid] 50 mcg PO DAILY 10/10/19 01/12/20 History Clopidogrel [Plavix] 75 mg PO HS 12/05/19 01/12/20 History Aspirin [Arenac Aspirin EC] 81 mg PO DAILY 01/12/20 01/12/20 History Ondansetron Odt [Zofran Odt] 8 mg PO Q8HR PRN 01/12/20 01/12/20 History Allergies Allergy/AdvReac Type Severity Reaction Status Date / Time ciprofloxacin [From Cipro] Allergy Swelling Verified 01/12/20 15:48 propoxyphene [From Darvon] Allergy Hallucinati Verified 01/12/20 15:48 ons Iodinated Contrast Media AdvReac Dyspnea Verified 01/12/20 15:48 [Iodinated Contrast- Oral and IV Dye] Physical Exam Vitals: Vital Signs Temp Pulse Resp BP Pulse Ox 01/12/20 15:50 98 15 121/63 01/12/20 15:40 98 17 108/61 01/12/20 15:30 101 H 12 120/63 01/12/20 15:20 98 13 120/63 01/12/20 15:10 103 H 15 132/61 01/12/20 15:00 19 01/12/20 14:40 120/53 01/12/20 14:30 104 H 16 117/59 98 01/12/20 14:20 101 H 24 117/59 97 01/12/20 14:10 104 H 7 L 97 01/12/20 14:00 117/69 01/12/20 13:50 102 H 14 117/69 92 L 01/12/20 13:40 94 19 146/70 95 01/12/20 13:35 98.2 F 101 H 16 146/70 99 01/12/20 13:30 102 H 6 L 123/69 97 01/12/20 13:20 104 H 13 123/69 99 01/12/20 13:10 104 H 18 122/100 100 01/12/20 12:50 140/92 01/12/20 12:40 95 17 127/62 96 01/12/20 12:30 95 14 112/60 97 01/12/20 11:55 123 H 23 91/59 96 01/12/20 11:35 97.8 F 113 H 18 64/42 98 Intake and Output 01/12/20 01/12/20 01/12/20 06:59 14:59 22:59 Other: Weight 63.957 kg General: [non toxic], [no distress], [appears at stated age] Derm: [warm], [dry] Head: [atraumatic], [normocephalic], [symmetric] Eyes: [EOMI], [no lid lag], [anicteric sclera] Mouth: [no lip lesion], [mucus membranes moist] Cardiovascular: [S1S2 reg], [tachycardic], [positive DP pulse bilateral], Lungs: [CTA bilateral], [no rhonchi, no rales] , [no accessory muscle use] Abdominal: [soft], [ nontender to palpation], [no guarding], [no appreciable organomegaly], [laparoscopic scar is intact with no erythema or discharge] Ext: [no gross muscle atrophy], [no edema], [no contractures] Neuro: [ CN II-XI grossly intact], [no focal neuro deficits] Psych: [Alert], [oriented], [appropriate affect] Results CBC & Chem 7: 01/12/20 11:59 01/12/20 11:59 Labs: Abnormal Lab Results - Last 24 Hours (Table) 01/12/20 01/12/20 01/12/20 Range/Units 11:59 11:59 11:59 WBC 26.5 H (3.8-10.6) k/uL RBC 4.29 L (4.30-5.90) m/uL Hgb 11.4 L (13.0-17.5) gm/dL Hct 37.3 L (39.0-53.0) % MCHC 30.6 L (31.0-37.0) g/dL Plt Count 533 H (150-450) k/uL Neutrophils # 23.4 H (1.3-7.7) k/uL D-Dimer (<0.60) mg/L FEU Sodium 132 L (137-145) mmol/L Potassium 5.2 H (3.5-5.1) mmol/L Chloride 96 L (98-107) mmol/L Carbon Dioxide 20 L (22-30) mmol/L BUN 40 H (9-20) mg/dL Creatinine 1.70 H (0.66-1.25) mg/dL Glucose 248 H (74-99) mg/dL Plasma Lactic Acid Alex 3.5 H* (0.7-2.0) mmol/L Magnesium 2.4 H (1.6-2.3) mg/dL Alkaline Phosphatase 174 H (38-126) U/L 01/12/20 Range/Units 11:59 WBC (3.8-10.6) k/uL RBC (4.30-5.90) m/uL Hgb (13.0-17.5) gm/dL Hct (39.0-53.0) % MCHC (31.0-37.0) g/dL Plt Count (150-450) k/uL Neutrophils # (1.3-7.7) k/uL D-Dimer 1.62 H (<0.60) mg/L FEU Sodium (137-145) mmol/L Potassium (3.5-5.1) mmol/L Chloride (98-107) mmol/L Carbon Dioxide (22-30) mmol/L BUN (9-20) mg/dL Creatinine (0.66-1.25) mg/dL Glucose (74-99) mg/dL Plasma Lactic Acid Alex (0.7-2.0) mmol/L Magnesium (1.6-2.3) mg/dL Alkaline Phosphatase (38-126) U/L Assessment and Plan Assessment: Sepsis due to diverticular abscess Normocytic anemia Elevated d-dimer Hyperkalemia Acute kidney injury Lactic acidosis Diabetes mellitus CAD Hypertension Hypothyroidism Bladder and bowel cancer Patient meets sepsis criteria. CT abdomen and pelvis shows diverticular abscess. Plans: Start Flagyl and Zosyn IV. Zofran as needed for nausea or vomiting. Start normal saline at 130 mL per hour. Tylenol as needed for fever. Pain control with morphine as needed. Telemetry monitoring. Follow blood culture. Follow surgery recommendations. Hemoglobin 11.4. Likely related to malignancy. Plans: Repeat CBC tomorrow morning. Transfuse if hemoglobin less than 7. D-dimer 1.62. Likely related to malignancy. Plans: Low likelihood of PE. V/Q scan shows low probability PE. Continue to monitor. Potassium 5.2. Likely due to dehydration. Plans: Hydration as above. Telemetry monitoring. Repeat BMP tomorrow morning. Hold losartan. Creatinine 1.7. Likely due to dehydration. Plans: Hydration as above. Avoid nephrotoxins. Repeat BMP tomorrow morning. Hold losartan. Lactic acid 3.5. Likely related to underlying infection. Plans: Hydration as above. Repeat until negative. [id number] glucose 248. Plans: Insulin sliding scale. Regular Accu-Cheks. Hypoglycemic precautions. Plans: Continue aspirin and Plavix. Plans: Continue Imdur. Plans: Continue Synthroid. Plans: Follow oncology consultation. DVT prophylaxis: [Lovenox] Discussed with: [Patient] Anticipated discharge: [3-4 days] Anticipated discharge place: [Home] A total of [45] minutes was spent on the care of this complex patient more than 50% of the time was spent in counseling and care coordination.
[2020-01-12] MEDS: metroNIDAZOLE-NS PMX 500 MG in SALINE 1 100ML.BAG IVPB SCH ×2 (19:45→22:58)
[2020-01-12 20:30] LABS: Glucose,Whole Blood 256 mg/dL (75-99)
[2020-01-12] MEDS: CLOPIDOGREL 75 MG TAB PO SCH (20:30)
[2020-01-12] MEDS: MORPHINE SULFATE 2 MG/ML SYRINGE IV PRN (20:30)
[2020-01-12] MEDS: PIPERACILLIN-TAZOBACTAM 3.375 GM in SODIUM CHLORIDE 0.9% 100 ML IVPB SCH (21:04)
[2020-01-12] MEDS: INSULIN ASPART (NovoLOG) 100 UNIT/ML VIAL SQ SCH (21:04)
[2020-01-12] MEDS: SODIUM CHLORIDE 0.9% 1,000 ML IV SCH (22:59)
[2020-01-13] MEDS: MORPHINE SULFATE 2 MG/ML SYRINGE IV PRN ×2 (00:06→09:07)
[2020-01-13] MEDS ORDERED: MORPHINE SULFATE 2 MG/ML SYRINGE IVP STA ×2 (00:48→03:18)
[2020-01-13 00:54] LABS: Budding Yeast,Urine Many /hpf; RBC,Urine >182 /hpf (0-5); Squamous Epithelial Cell,Urine 1 /hpf (0-4); WBC,Urine >182 /hpf (0-5)
[2020-01-13 00:57] LABS: Appearance,Urine Cloudy (Clear); Color,Urine Yellow
[2020-01-13 00:59] LABS: Bilirubin,Urine Negative (Negative); Glucose,Urine (UA) Negative (Negative); Ketones,Urine Negative (Negative); Protein,Urine 2+ (Negative)
[2020-01-13 01:00] LABS: Blood,Urine Large (Negative); Leukocyte Esterase,Urine Large (Negative); Nitrite,Urine Negative (Negative); Urobilinogen,Urine <2.0 mg/dL (<2.0)
[2020-01-13] MEDS: ONDANSETRON 4 MG/2 ML VIAL IVP PRN ×3 (01:00→23:34)
[2020-01-13] MEDS: PIPERACILLIN-TAZOBACTAM 3.375 GM in SODIUM CHLORIDE 0.9% 100 ML IVPB SCH ×3 (03:25→20:16)
[2020-01-13 05:36] LABS: Glucose,Whole Blood 261 mg/dL (75-99)
[2020-01-13] MEDS: LEVOTHYROXINE 50 MCG TAB PO SCH (05:36)
[2020-01-13] MEDS: INSULIN ASPART (NovoLOG) 100 UNIT/ML VIAL SQ SCH ×4 (05:38→20:16)
[2020-01-13] MEDS: SODIUM CHLORIDE 0.9% 1,000 ML IV SCH ×3 (05:38→23:16)
[2020-01-13 07:05] LABS: Basophils % (A) 0 %; Eosinophils % (A) 0 %; HCT 30.8 % (39.0-53.0); Hypochromasia Moderate; Lymphocytes # (A) 1.1 k/uL (1.0-4.8); Lymphocytes % (A) 5 %; MCH 26.2 pg (25.0-35.0); MCHC 29.5 g/dL (31.0-37.0); Mean Platelet Volume 7.3; Monocytes # (A) 0.8 k/uL (0-1.0); Monocytes % (A) 4 %; Neutrophils # (A) 19.5 k/uL (1.3-7.7); Neutrophils % (A) 89 %; Platelet Count 320 k/uL (150-450); RBC 3.47 m/uL (4.30-5.90); RDW 15.2 % (11.5-15.5); WBC 21.8 k/uL (3.8-10.6)
[2020-01-13 07:11] LABS: HGB 9.1 gm/dL (13.0-17.5)
[2020-01-13 07:15] LABS: Albumin 2.7 g/dL (3.5-5.0); Calcium 8.1 mg/dL (8.4-10.2); Potassium 4.7 mmol/L (3.5-5.1); Total Bilirubin 0.5 mg/dL (0.2-1.3); Total Protein 5.3 g/dL (6.3-8.2)
[2020-01-13] MEDS: metroNIDAZOLE-NS PMX 500 MG in SALINE 1 100ML.BAG IVPB SCH ×3 (09:04→23:16)
[2020-01-13] MEDS: ASPIRIN 81 MG PO SCH (09:06)
[2020-01-13] MEDS: ISOSORBIDE MONONITRATE ER 30 MG TAB.ER.24H PO SCH (09:06)
[2020-01-13] MEDS: ENOXAPARIN 40 MG/0.4 ML SYRINGE SQ SCH (09:07)
--- NOTE | 2020-01-13 10:50 | P.GSCN ---
History of Present Illness Consult date: 01/13/20 Reason for Consult: Questional diverticular abscess History of present illness: This 79-year-old male with recent history of bladder cancer. Patient developed abdominal pain and nausea. Patient awake CAT scan is found have a 9.3 x 6.3 x 8.9 cm fluid collection surrounding the sigmoid colon. Scope thought this may be due to a diverticular abscess. Patient was recently diagnosed with diverticulitis as well. Past Medical History Past Medical History: Cancer, Chest Pain / Angina, Diabetes Mellitus, Hypertension Additional Past Medical History / Comment(s): shortness of breath, bowel and bladder ca History of Any Multi-Drug Resistant Organisms: None Reported Past Surgical History: Back Surgery Additional Past Surgical History / Comment(s): hand surgery. back surgery with 4 screws and 2 rods Past Anesthesia/Blood Transfusion Reactions: No Reported Reaction Additional Past Anesthesia/Blood Transfusion Reaction / Comm: son allergic to one type of anesthesia Past Psychological History: No Psychological Hx Reported Smoking Status: Never smoker Past Alcohol Use History: None Reported Additional Past Alcohol Use History / Comment(s): quit 1991 smoked 30+ years on and off Past Drug Use History: None Reported - Past Family History Mother Family Medical History: Unable to Obtain Additional Family Medical History / Comment(s): adopted Medications and Allergies Home Medications Medication Instructions Recorded Confirmed Type Ascorbic Acid [Vitamin C] 500 mg PO DAILY 03/31/18 01/12/20 History Cholecalciferol [Vitamin D3] 1,000 unit PO DAILY 03/31/18 01/12/20 History Cyanocobalamin [Vitamin B-12] 500 mcg PO DAILY 03/31/18 01/12/20 History Losartan Potassium 50 mg PO DAILY 03/31/18 01/12/20 History Insulin Aspart [NovoLOG] See Protocol SQ TID-W/MEALS 08/01/18 01/12/20 History Insulin Glargine [Lantus] 20 - 30 unit SQ HS 10/10/19 01/12/20 History Isosorbide Mononitrate [Isosorbide 30 mg PO DAILY 10/10/19 01/12/20 History Mononitrate ER] Levothyroxine Sodium [Synthroid] 50 mcg PO DAILY 10/10/19 01/12/20 History Clopidogrel [Plavix] 75 mg PO HS 12/05/19 01/12/20 History Aspirin [[place] Aspirin EC] 81 mg PO DAILY 01/12/20 01/12/20 History Ondansetron Odt [Zofran Odt] 8 mg PO Q8HR PRN 01/12/20 01/12/20 History Allergies Allergy/AdvReac Type Severity Reaction Status Date / Time ciprofloxacin [From Cipro] Allergy Swelling Verified 01/12/20 15:48 propoxyphene [From Darvon] Allergy Hallucinati Verified 01/12/20 15:48 ons Iodinated Contrast Media AdvReac Dyspnea Verified 01/12/20 15:48 [Iodinated Contrast- Oral and IV Dye] Surgical - Exam Vital Signs Temp Pulse Resp BP Pulse Ox 97.8 F 113 H 18 64/42 98 01/12/20 11:35 01/12/20 11:35 01/12/20 11:35 01/12/20 11:35 01/12/20 11:35 - General well developed, well nourished, no distress - Eyes PERRL - ENT normal pinna - Neck no masses - Respiratory normal expansion - Cardiovascular Rhythm: regular - Abdomen Mild tenderness throughout lower abdomen. There is no rebound or guarding. Abdomen: soft Results - Labs 01/13/20 06:25 01/13/20 06:25 Abnormal Lab Results - Last 24 Hours (Table) 01/12/20 01/12/20 01/12/20 Range/Units 11:59 11:59 11:59 WBC 26.5 H (3.8-10.6) k/uL RBC 4.29 L (4.30-5.90) m/uL Hgb 11.4 L (13.0-17.5) gm/dL Hct 37.3 L (39.0-53.0) % MCHC 30.6 L (31.0-37.0) g/dL Plt Count 533 H (150-450) k/uL Neutrophils # 23.4 H (1.3-7.7) k/uL D-Dimer (<0.60) mg/L FEU Sodium 132 L (137-145) mmol/L Potassium 5.2 H (3.5-5.1) mmol/L Chloride 96 L (98-107) mmol/L Carbon Dioxide 20 L (22-30) mmol/L BUN 40 H (9-20) mg/dL Creatinine 1.70 H (0.66-1.25) mg/dL Glucose 248 H (74-99) mg/dL POC Glucose (mg/dL) (75-99) mg/dL Plasma Lactic Acid Alex 3.5 H* (0.7-2.0) mmol/L Calcium (8.4-10.2) mg/dL Magnesium 2.4 H (1.6-2.3) mg/dL Alkaline Phosphatase 174 H (38-126) U/L Total Protein (6.3-8.2) g/dL Albumin (3.5-5.0) g/dL Urine Protein (Negative) Urine RBC (0-5) /hpf Urine WBC (0-5) /hpf Urine WBC Clumps (None) /hpf Urine Yeast (Budding) (None) /hpf 01/12/20 01/12/20 01/12/20 Range/Units 11:59 20:28 22:57 WBC (3.8-10.6) k/uL RBC (4.30-5.90) m/uL Hgb (13.0-17.5) gm/dL Hct (39.0-53.0) % MCHC (31.0-37.0) g/dL Plt Count (150-450) k/uL Neutrophils # (1.3-7.7) k/uL D-Dimer 1.62 H (<0.60) mg/L FEU Sodium (137-145) mmol/L Potassium (3.5-5.1) mmol/L Chloride (98-107) mmol/L Carbon Dioxide (22-30) mmol/L BUN (9-20) mg/dL Creatinine (0.66-1.25) mg/dL Glucose (74-99) mg/dL POC Glucose (mg/dL) 256 H (75-99) mg/dL Plasma Lactic Acid Alex (0.7-2.0) mmol/L Calcium (8.4-10.2) mg/dL Magnesium (1.6-2.3) mg/dL Alkaline Phosphatase (38-126) U/L Total Protein (6.3-8.2) g/dL Albumin (3.5-5.0) g/dL Urine Protein 2+ H (Negative) Urine RBC >182 H (0-5) /hpf Urine WBC >182 H (0-5) /hpf Urine WBC Clumps Many H (None) /hpf Urine Yeast (Budding) Many H (None) /hpf 01/13/20 01/13/20 01/13/20 Range/Units 05:34 06:25 06:25 WBC 21.8 H (3.8-10.6) k/uL RBC 3.47 L (4.30-5.90) m/uL Hgb 9.1 L D (13.0-17.5) gm/dL Hct 30.8 L (39.0-53.0) % MCHC 29.5 L (31.0-37.0) g/dL Plt Count (150-450) k/uL Neutrophils # 19.5 H (1.3-7.7) k/uL D-Dimer (<0.60) mg/L FEU Sodium 134 L (137-145) mmol/L Potassium (3.5-5.1) mmol/L Chloride (98-107) mmol/L Carbon Dioxide 20 L (22-30) mmol/L BUN 30 H (9-20) mg/dL Creatinine 1.46 H (0.66-1.25) mg/dL Glucose 229 H (74-99) mg/dL POC Glucose (mg/dL) 261 H (75-99) mg/dL Plasma Lactic Acid Alex (0.7-2.0) mmol/L Calcium 8.1 L (8.4-10.2) mg/dL Magnesium (1.6-2.3) mg/dL Alkaline Phosphatase 140 H (38-126) U/L Total Protein 5.3 L (6.3-8.2) g/dL Albumin 2.7 L (3.5-5.0) g/dL Urine Protein (Negative) Urine RBC (0-5) /hpf Urine WBC (0-5) /hpf Urine WBC Clumps (None) /hpf Urine Yeast (Budding) (None) /hpf Microbiology - Last 24 Hours (Table) 01/12/20 22:57 Urine Culture - Preliminary Urine,Clean Catch Diabetes panel 01/12/20 01/13/20 Range/Units 11:59 06:25 Sodium 132 L 134 L (137-145) mmol/L Potassium 5.2 H 4.7 (3.5-5.1) mmol/L Chloride 96 L 106 (98-107) mmol/L Carbon Dioxide 20 L 20 L (22-30) mmol/L BUN 40 H 30 H (9-20) mg/dL Creatinine 1.70 H 1.46 H (0.66-1.25) mg/dL Glucose 248 H 229 H (74-99) mg/dL Calcium 9.7 8.1 L (8.4-10.2) mg/dL AST 22 18 (17-59) U/L ALT 31 24 (4-49) U/L Alkaline Phosphatase 174 H 140 H (38-126) U/L Total Protein 7.0 5.3 L (6.3-8.2) g/dL Albumin 3.6 2.7 L (3.5-5.0) g/dL Calcium panel 01/12/20 01/13/20 Range/Units 11:59 06:25 Calcium 9.7 8.1 L (8.4-10.2) mg/dL Albumin 3.6 2.7 L (3.5-5.0) g/dL Pituitary panel 01/12/20 01/13/20 Range/Units 11:59 06:25 Sodium 132 L 134 L (137-145) mmol/L Potassium 5.2 H 4.7 (3.5-5.1) mmol/L Chloride 96 L 106 (98-107) mmol/L Carbon Dioxide 20 L 20 L (22-30) mmol/L BUN 40 H 30 H (9-20) mg/dL Creatinine 1.70 H 1.46 H (0.66-1.25) mg/dL Glucose 248 H 229 H (74-99) mg/dL Calcium 9.7 8.1 L (8.4-10.2) mg/dL Adrenal panel 01/12/20 01/13/20 Range/Units 11:59 06:25 Sodium 132 L 134 L (137-145) mmol/L Potassium 5.2 H 4.7 (3.5-5.1) mmol/L Chloride 96 L 106 (98-107) mmol/L Carbon Dioxide 20 L 20 L (22-30) mmol/L BUN 40 H 30 H (9-20) mg/dL Creatinine 1.70 H 1.46 H (0.66-1.25) mg/dL Glucose 248 H 229 H (74-99) mg/dL Calcium 9.7 8.1 L (8.4-10.2) mg/dL Total Bilirubin 0.4 0.5 (0.2-1.3) mg/dL AST 22 18 (17-59) U/L ALT 31 24 (4-49) U/L Alkaline Phosphatase 174 H 140 H (38-126) U/L Total Protein 7.0 5.3 L (6.3-8.2) g/dL Albumin 3.6 2.7 L (3.5-5.0) g/dL Assessment and Plan Plan: Possible sigmoid diverticular abscess. Patient will undergo interventional radiology consultation for possible drain placement
--- NOTE | 2020-01-13 11:54 | P.CONS ---
History of Present Illness - Reason for Consult Consult date: 01/13/20 Locally advanced bladder cancer, weakness, nausea and vomiting - History of Present Illness The patient is an 79-year-old male with multiple medical problems. He was initially seen in consult on 12/12/19. He had been admitted with hematuria and lower abdominal pain. He eventually had initially started about 3 months prior and had initially been intermittent and otherwise asymptomatic. This had been become progressive, and associated with some dysuria leading him to come to the hospital. He had a cystoscopy that admission initially which was positive for high-grade urothelial carcinoma. However muscularis propria was not sampled. The patient therefore underwent repeat cystoscopy on 12/13/19 again showing high- grade urothelial carcinoma with with extensive involvement of the muscularis propria. During that admission the patient had CT scans of the abdomen and pelvis 2. The first study had shown the possibility of a fistula between the bladder dome and sigmoid colon but the second study was negative for the same. Colonoscopy in 10/17 had been negative for any evidence of fistula. The patient also had CT of the chest and bone scan which along with CT abdomen and pelvis showed no evidence of metastatic disease. Given his multiple medical issues including acute on chronic C daily the patient was felt to be suboptimal candidate for standard approach of neoadjuvant [place] based chemotherapy followed by surgery. He was therefore referred to [facility] for surgical evaluation. The patient had a CT urogram at [facility] that showed no evidence of fistula. He was taken to surgery on 12/25/[address] Chin. He had a laparoscopic procedure which however revealed extensive adhesions between the bladder, sigmoid colon and anterior abdominal wall. He underwent lysis of adhesions. Biopsy from the surface of the sigmoid colon however showed involvement with malignancy. The patient was therefore felt to be unresectable upfront and the procedure was aborted. He also had pelvic lymph node sampling that was negative for metastatic disease. It was recommended that the patient should have a medical oncology follow-up for systemic chemotherapy for cytoreduction. During his hospitalization at [facility] his creatinine went up into the 3+ range but was decreasing at the time of discharge on 12/31/19. The patient was seen for his first office visit on 01/12/20. He was very weak, in a wheelchair, and appear to be obviously short of breath on exam. His d [id number] who accompanied him stated that his oral intake had been very poor since discharge. He had been able to tolerate only small amounts of liquids at a time and would otherwise have nausea and vomiting with the attempt to advance his diet. He also complaining of some vague abdominal discomfort. He had been constipated off and on, with no recurrence of hematuria since discharge. Patient's heart rate was also elevated in the office with systolic blood pressure in the 60 range. He was therefore sent to the emergency room, and the case discussed with the emergency room physician. The patient was admitted for further management. Additional investigations included a V/Q scan that showed low probability for PE. CT of the abdomen and pelvis showed an 8-9 cm collection in relation to the sigmoid colon suspicious for possible abscess. The patient was admitted for further management and consult placed. Review of Systems Constitutional: Reports poor appetite, Reports weakness, Reports weight loss Eyes: denies blurred vision, denies pain Ears: deny: decreased hearing, ear discharge, earache, tinnitus Ears, nose, mouth and throat: Denies headache, Denies sore throat Cardiovascular: Reports shortness of breath Respiratory: Reports dyspnea Gastrointestinal: Reports abdominal pain, Reports loss of appetite, Reports nausea, Reports vomiting Genitourinary: Reports as per HPI Musculoskeletal: Reports muscle weakness Integumentary: Denies pruritus, Denies rash Neurological: Reports weakness Psychiatric: Reports difficulty concentrating Endocrine: Reports fatigue, Reports weight change Hematologic/Lymphatic: Reports as per HPI Past Medical History Past Medical History: Cancer, Chest Pain / Angina, Diabetes Mellitus, Hypertension Additional Past Medical History / Comment(s): shortness of breath, bowel and bladder ca History of Any Multi-Drug Resistant Organisms: None Reported Past Surgical History: Back Surgery Additional Past Surgical History / Comment(s): hand surgery. back surgery with 4 screws and 2 rods Past Anesthesia/Blood Transfusion Reactions: No Reported Reaction Additional Past Anesthesia/Blood Transfusion Reaction / Comm: son allergic to one type of anesthesia Past Psychological History: No Psychological Hx Reported Smoking Status: Never smoker Past Alcohol Use History: None Reported Additional Past Alcohol Use History / Comment(s): quit 1991 smoked 30+ years on and off Past Drug Use History: None Reported - Past Family History Mother Family Medical History: Unable to Obtain Additional Family Medical History / Comment(s): adopted Medications and Allergies Home Medications Medication Instructions Recorded Confirmed Type Ascorbic Acid [Vitamin C] 500 mg PO DAILY 03/31/18 01/12/20 History Cholecalciferol [Vitamin D3] 1,000 unit PO DAILY 03/31/18 01/12/20 History Cyanocobalamin [Vitamin B-12] 500 mcg PO DAILY 03/31/18 01/12/20 History Losartan Potassium 50 mg PO DAILY 03/31/18 01/12/20 History Insulin Aspart [NovoLOG] See Protocol SQ TID-W/MEALS 08/01/18 01/12/20 History Insulin Glargine [Lantus] 20 - 30 unit SQ HS 10/10/19 01/12/20 History Isosorbide Mononitrate [Isosorbide 30 mg PO DAILY 10/10/19 01/12/20 History Mononitrate ER] Levothyroxine Sodium [Synthroid] 50 mcg PO DAILY 10/10/19 01/12/20 History Clopidogrel [Plavix] 75 mg PO HS 12/05/19 01/12/20 History Aspirin [[place] Aspirin EC] 81 mg PO DAILY 01/12/20 01/12/20 History Ondansetron Odt [Zofran Odt] 8 mg PO Q8HR PRN 01/12/20 01/12/20 History Allergies Allergy/AdvReac Type Severity Reaction Status Date / Time ciprofloxacin [From Cipro] Allergy Swelling Verified 01/12/20 15:48 propoxyphene [From Darvon] Allergy Hallucinati Verified 01/12/20 15:48 ons Iodinated Contrast Media AdvReac Dyspnea Verified 01/12/20 15:48 [Iodinated Contrast- Oral and IV Dye] Physical Exam Vitals: Vital Signs Temp Pulse Pulse Resp BP BP BP 01/13/20 09:00 98.3 F 98 16 105/63 01/13/20 03:00 98.2 F 100 18 109/52 01/12/20 23:00 98.1 F 113 H 18 99/55 01/12/20 19:30 16 01/12/20 15:50 98 15 121/63 01/12/20 15:40 98 17 108/61 01/12/20 15:30 101 H 12 120/63 01/12/20 15:20 98 13 120/63 01/12/20 15:10 103 H 15 132/61 01/12/20 15:00 19 01/12/20 14:40 120/53 01/12/20 14:30 104 H 16 117/59 01/12/20 14:20 101 H 24 117/59 01/12/20 14:10 104 H 7 L 01/12/20 14:00 117/69 01/12/20 13:50 102 H 14 117/69 01/12/20 13:40 94 19 146/70 01/12/20 13:35 98.2 F 101 H 16 146/70 01/12/20 13:30 102 H 6 L 123/69 01/12/20 13:20 104 H 13 123/69 01/12/20 13:10 104 H 18 122/100 01/12/20 12:50 140/92 01/12/20 12:40 95 17 127/62 01/12/20 12:30 95 14 112/60 01/12/20 11:55 123 H 23 91/59 Pulse Ox 01/13/20 09:00 99 01/13/20 03:00 100 01/12/20 23:00 100 01/12/20 19:30 01/12/20 15:50 01/12/20 15:40 01/12/20 15:30 01/12/20 15:20 01/12/20 15:10 01/12/20 15:00 01/12/20 14:40 01/12/20 14:30 98 01/12/20 14:20 97 01/12/20 14:10 97 01/12/20 14:00 01/12/20 13:50 92 L 01/12/20 13:40 95 01/12/20 13:35 99 01/12/20 13:30 97 01/12/20 13:20 99 01/12/20 13:10 100 01/12/20 12:50 01/12/20 12:40 96 01/12/20 12:30 97 01/12/20 11:55 96 Intake and Output 01/12/20 01/13/20 01/13/20 22:59 06:59 14:59 Other: Voiding Method Urinal Urinal Urinal # Voids 1 2 1 Weight 63.957 kg 66.5 kg - Constitutional General appearance: mild distress - EENT Eyes: EOMI, PERRLA ENT: hearing grossly normal, normal oropharynx - Neck Neck: no lymphadenopathy Thyroid: bilateral: normal size - Respiratory Respiratory: bilateral: diminished - Cardiovascular Rhythm: regular Heart sounds: normal: S1, S2 - Gastrointestinal With abdominal discomfort on palpation in the lower abdomen somewhat diffuse. No obvious rebound General gastrointestinal: normal bowel sounds, soft - Integumentary Integumentary: normal - Neurologic Neurologic: CNII-XII intact - Musculoskeletal Musculoskeletal: generalized weakness, strength equal bilaterally - Psychiatric Lethargic, responses are slow but appropriate Psychiatric: A&O x's 3 Results CBC & Chem 7: 01/13/20 06:25 01/13/20 06:25 Labs: Abnormal Lab Results - Last 24 Hours (Table) 01/12/20 01/12/20 01/12/20 Range/Units 11:59 11:59 11:59 WBC 26.5 H (3.8-10.6) k/uL RBC 4.29 L (4.30-5.90) m/uL Hgb 11.4 L (13.0-17.5) gm/dL Hct 37.3 L (39.0-53.0) % MCHC 30.6 L (31.0-37.0) g/dL Plt Count 533 H (150-450) k/uL Neutrophils # 23.4 H (1.3-7.7) k/uL D-Dimer (<0.60) mg/L FEU Sodium 132 L (137-145) mmol/L Potassium 5.2 H (3.5-5.1) mmol/L Chloride 96 L (98-107) mmol/L Carbon Dioxide 20 L (22-30) mmol/L BUN 40 H (9-20) mg/dL Creatinine 1.70 H (0.66-1.25) mg/dL Glucose 248 H (74-99) mg/dL POC Glucose (mg/dL) (75-99) mg/dL Plasma Lactic Acid Alex 3.5 H* (0.7-2.0) mmol/L Calcium (8.4-10.2) mg/dL Magnesium 2.4 H (1.6-2.3) mg/dL Alkaline Phosphatase 174 H (38-126) U/L Total Protein (6.3-8.2) g/dL Albumin (3.5-5.0) g/dL Urine Protein (Negative) Urine RBC (0-5) /hpf Urine WBC (0-5) /hpf Urine WBC Clumps (None) /hpf Urine Yeast (Budding) (None) /hpf 01/12/20 01/12/20 01/12/20 Range/Units 11:59 20:28 22:57 WBC (3.8-10.6) k/uL RBC (4.30-5.90) m/uL Hgb (13.0-17.5) gm/dL Hct (39.0-53.0) % MCHC (31.0-37.0) g/dL Plt Count (150-450) k/uL Neutrophils # (1.3-7.7) k/uL D-Dimer 1.62 H (<0.60) mg/L FEU Sodium (137-145) mmol/L Potassium (3.5-5.1) mmol/L Chloride (98-107) mmol/L Carbon Dioxide (22-30) mmol/L BUN (9-20) mg/dL Creatinine (0.66-1.25) mg/dL Glucose (74-99) mg/dL POC Glucose (mg/dL) 256 H (75-99) mg/dL Plasma Lactic Acid Alex (0.7-2.0) mmol/L Calcium (8.4-10.2) mg/dL Magnesium (1.6-2.3) mg/dL Alkaline Phosphatase (38-126) U/L Total Protein (6.3-8.2) g/dL Albumin (3.5-5.0) g/dL Urine Protein 2+ H (Negative) Urine RBC >182 H (0-5) /hpf Urine WBC >182 H (0-5) /hpf Urine WBC Clumps Many H (None) /hpf Urine Yeast (Budding) Many H (None) /hpf 01/13/20 01/13/20 01/13/20 Range/Units 05:34 06:25 06:25 WBC 21.8 H (3.8-10.6) k/uL RBC 3.47 L (4.30-5.90) m/uL Hgb 9.1 L D (13.0-17.5) gm/dL Hct 30.8 L (39.0-53.0) % MCHC 29.5 L (31.0-37.0) g/dL Plt Count (150-450) k/uL Neutrophils # 19.5 H (1.3-7.7) k/uL D-Dimer (<0.60) mg/L FEU Sodium 134 L (137-145) mmol/L Potassium (3.5-5.1) mmol/L Chloride (98-107) mmol/L Carbon Dioxide 20 L (22-30) mmol/L BUN 30 H (9-20) mg/dL Creatinine 1.46 H (0.66-1.25) mg/dL Glucose 229 H (74-99) mg/dL POC Glucose (mg/dL) 261 H (75-99) mg/dL Plasma Lactic Acid Alex (0.7-2.0) mmol/L Calcium 8.1 L (8.4-10.2) mg/dL Magnesium (1.6-2.3) mg/dL Alkaline Phosphatase 140 H (38-126) U/L Total Protein 5.3 L (6.3-8.2) g/dL Albumin 2.7 L (3.5-5.0) g/dL Urine Protein (Negative) Urine RBC (0-5) /hpf Urine WBC (0-5) /hpf Urine WBC Clumps (None) /hpf Urine Yeast (Budding) (None) /hpf Microbiology - Last 24 Hours (Table) 01/12/20 22:57 Urine Culture - Preliminary Urine,Clean Catch Comments: VQ scan report reviewed Chest x-ray: report reviewed CT scan - abdomen: report reviewed CT scan - pelvis: report reviewed Assessment and Plan (1) SIRS (systemic inflammatory response syndrome) Narrative/Plan: The patient on evaluation in the office and low blood pressure with systolic in the 60 range, elevated heart rate and elevated respiratory rate. He was therefore sent in to the emergency room as described in the HPI. Based on findings, he was admitted further management. - A VQ scan and cardiac ischemia workup were negative. CT of the abdomen and pelvis did show a fluid collection adjacent to the sigmoid colon. The patient has had a recent surgical procedure on 12/25/19 as described in the HPI, at [facility]. Therefore there is significant concern that this may represent an abscess and be the source of his SIRS. The patient has been started on IV antibiotics. Surgical consult was placed, and they have recommended brain placement with INR. Await body fluid culture. Postprocedure hematoma with or without infection, as well as abscess with or without ongoing possible leak remain concerns. - Defer to the surgical service for further management. Current Visit: Yes Status: Acute Code(s): R65.10 - SIRS OF NON-INFECTIOUS ORIGIN W/O ACUTE ORGAN DYSFUNCTION SNOMED Code(s): 169699766 (2) Urothelial carcinoma of bladder Narrative/Plan: I had a brief discussion about the pathology, stage, and treatment options with the patient and his [id number] in the office. More detailed discussion was not possible as the patient had to be sent to the emergency room. They were advised that ideally in this situation the patient would receive systemic chemotherapy. However, at this time obviously he is not a candidate for the same until his acute issues are sufficiently resolved. In addition, typically, after a major abdominal procedure we will usually wait for about 3-4 weeks anyway prior to starting any chemotherapy even in the absence of complications. To complicate matters further given the patient's age, multiple medical problems, and underlying renal insufficiency significantly increased risk of adverse events with chemotherapy. - At this time the plan is to set up a family meeting once the patient is more stable to discuss options. Current Visit: No Status: Acute Code(s): C67.9 - MALIGNANT NEOPLASM OF BLADDER, UNSPECIFIED SNOMED Code(s): 676285533 (3) Dehydration Narrative/Plan: Due to ongoing nausea, vomiting, and decreased oral intake. IV hydration. Thankfully creatinine is actually somewhat better than compared to his discharge level from [facility], at 1.7 versus mid 2's. Follow renal function with hydration Current Visit: Yes Status: Acute Code(s): E86.0 - DEHYDRATION SNOMED Code(s): 09973451 Plan: Defer to the admitting service for management of his other medical problems
[2020-01-13 12:01] LABS: Glucose,Whole Blood 266 mg/dL (75-99)
[2020-01-13] MEDS ORDERED: NALOXONE 0.4 MG/ML 1 ML VIAL IV PRN (15:16)
[2020-01-13] MEDS ORDERED: HYDROmorphone PCA 10 MG/50 ML BAG IV PRN (15:16)
--- NOTE | 2020-01-13 15:19 | P.PN ---
Subjective Progress Note Date: 01/13/20 Patient is complaining of nausea, vomiting with food. Continues to have significant abdominal pain. Has frequent urination. Objective - Vital Signs Vital signs: Vital Signs Temp 98.3 F 01/13/20 09:00 Pulse 95 01/13/20 11:10 Resp 16 01/13/20 11:10 BP 121/64 01/13/20 11:10 Pulse Ox 99 01/13/20 11:10 Intake & Output 01/12/20 01/13/20 01/13/20 18:59 06:59 18:59 Intake Total 1462 Output Total 200 Balance 1262 Weight 63.957 kg 66.5 kg Intake: Intake, IV Titration 1240 Amount Piperacillin-Tazobactam 3 100 .375 gm In Sodium Chloride 0.9% 100 ml @ 25 mls/hr IVPB Q8H KAT Rx#: [id number] Sodium Chloride 0.9% 1, 1040 000 ml @ 130 mls/hr IV . Q7H42M KAT Rx#:[id number] metroNIDAZOLE-NS PMX 500 100 mg In Saline 1 100ml.bag @ 100 mls/hr IVPB Q8HR KAT Rx#:[id number] Oral 222 Output: Urine 200 Other: Voiding Method Urinal Urinal # Voids 2 1 - Exam Gen: awake, alert HEENT: normocephalic, atraumatic, good hearing acuity, moist mucous membranes Resp: CTAB, good air exchange, no accessory muscle use, no wheezes, crackles, rhonchi CVS: good distal perfusion x 4, RRR, no murmurs, clicks, gallops GI: distended, TTP : no SPT, no CVAT, skelton catheter not present MSK: no pitting edema, no clubbing Neuro: non-focal, no sensory deficits, appropriate tone Psych: cooperative, euthymic mood - Labs CBC & Chem 7: 01/13/20 06:25 01/13/20 06:25 Labs: Abnormal Lab Results - Last 24 Hours (Table) 01/12/20 01/12/20 01/12/20 Range/Units 11:59 20:28 22:57 WBC (3.8-10.6) k/uL RBC (4.30-5.90) m/uL Hgb (13.0-17.5) gm/dL Hct (39.0-53.0) % MCHC (31.0-37.0) g/dL Neutrophils # (1.3-7.7) k/uL D-Dimer 1.62 H (<0.60) mg/L FEU Sodium (137-145) mmol/L Carbon Dioxide (22-30) mmol/L BUN (9-20) mg/dL Creatinine (0.66-1.25) mg/dL Glucose (74-99) mg/dL POC Glucose (mg/dL) 256 H (75-99) mg/dL Calcium (8.4-10.2) mg/dL Alkaline Phosphatase (38-126) U/L Total Protein (6.3-8.2) g/dL Albumin (3.5-5.0) g/dL Urine Protein 2+ H (Negative) Urine RBC >182 H (0-5) /hpf Urine WBC >182 H (0-5) /hpf Urine WBC Clumps Many H (None) /hpf Urine Yeast (Budding) Many H (None) /hpf 01/13/20 01/13/20 01/13/20 Range/Units 05:34 06:25 06:25 WBC 21.8 H (3.8-10.6) k/uL RBC 3.47 L (4.30-5.90) m/uL Hgb 9.1 L D (13.0-17.5) gm/dL Hct 30.8 L (39.0-53.0) % MCHC 29.5 L (31.0-37.0) g/dL Neutrophils # 19.5 H (1.3-7.7) k/uL D-Dimer (<0.60) mg/L FEU Sodium 134 L (137-145) mmol/L Carbon Dioxide 20 L (22-30) mmol/L BUN 30 H (9-20) mg/dL Creatinine 1.46 H (0.66-1.25) mg/dL Glucose 229 H (74-99) mg/dL POC Glucose (mg/dL) 261 H (75-99) mg/dL Calcium 8.1 L (8.4-10.2) mg/dL Alkaline Phosphatase 140 H (38-126) U/L Total Protein 5.3 L (6.3-8.2) g/dL Albumin 2.7 L (3.5-5.0) g/dL Urine Protein (Negative) Urine RBC (0-5) /hpf Urine WBC (0-5) /hpf Urine WBC Clumps (None) /hpf Urine Yeast (Budding) (None) /hpf 01/13/20 Range/Units 12:00 WBC (3.8-10.6) k/uL RBC (4.30-5.90) m/uL Hgb (13.0-17.5) gm/dL Hct (39.0-53.0) % MCHC (31.0-37.0) g/dL Neutrophils # (1.3-7.7) k/uL D-Dimer (<0.60) mg/L FEU Sodium (137-145) mmol/L Carbon Dioxide (22-30) mmol/L BUN (9-20) mg/dL Creatinine (0.66-1.25) mg/dL Glucose (74-99) mg/dL POC Glucose (mg/dL) 266 H (75-99) mg/dL Calcium (8.4-10.2) mg/dL Alkaline Phosphatase (38-126) U/L Total Protein (6.3-8.2) g/dL Albumin (3.5-5.0) g/dL Urine Protein (Negative) Urine RBC (0-5) /hpf Urine WBC (0-5) /hpf Urine WBC Clumps (None) /hpf Urine Yeast (Budding) (None) /hpf Microbiology - Last 24 Hours (Table) 01/12/20 11:59 Blood Culture - Preliminary Blood No Growth after 24 hours 01/12/20 22:57 Urine Culture - Preliminary Urine,Clean Catch Assessment and Plan Assessment: Sepsis due to diverticular abscess Normocytic anemia Elevated d-dimer Hyperkalemia Acute kidney injury Lactic acidosis Diabetes mellitus CAD Hypertension Hypothyroidism Bladder and bowel cancer Patient meets sepsis criteria. CT abdomen and pelvis shows diverticular abscess. Plans: Start Flagyl and Zosyn IV. Zofran as needed for nausea or vomiting. Start normal saline at 130 mL per hour. Tylenol as needed for fever. 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 Follow blood culture. Follow surgery recommendations. Hemoglobin 11.4. Likely related to malignancy. Plans: Repeat CBC tomorrow morning. Transfuse if hemoglobin less than 7. D-dimer 1.62. Likely related to malignancy. Plans: Low likelihood of PE. V/Q scan shows low probability PE. Continue to monitor. Potassium 5.2. Likely due to dehydration. Plans: Hydration as above. Telemetry monitoring. Repeat BMP tomorrow morning. Hold losartan. Creatinine 1.7. Likely due to dehydration. Plans: Hydration as above. Avoid nephrotoxins. Repeat BMP tomorrow morning. Hold losartan. Lactic acid 3.5. Likely related to underlying infection. Plans: Hydration as above. Repeat until negative. Kgubn-ni-ecft glucose 248. Plans: Insulin sliding scale. Regular Accu-Cheks. Hypoglycemic precautions. Plans: Continue aspirin and Plavix. Plans: Continue Imdur. Plans: Continue Synthroid. Plans: Follow oncology consultation. DVT prophylaxis: [Lovenox] Discussed with: [Patient] Anticipated discharge: [3-4 days] Anticipated discharge place: [Home]
[2020-01-13 17:19] LABS: Glucose,Whole Blood 244 mg/dL (75-99)
[2020-01-13 19:55] LABS: Glucose,Whole Blood 265 mg/dL (75-99)
[2020-01-13] MEDS: CLOPIDOGREL 75 MG TAB PO SCH (21:52)
[2020-01-14] MEDS: PIPERACILLIN-TAZOBACTAM 3.375 GM in SODIUM CHLORIDE 0.9% 100 ML IVPB SCH ×3 (05:16→21:02)
[2020-01-14] MEDS: LEVOTHYROXINE 50 MCG TAB PO SCH (05:56)
[2020-01-14] MEDS: SODIUM CHLORIDE 0.9% 1,000 ML IV SCH ×3 (05:57→20:57)
[2020-01-14 06:08] LABS: Glucose,Whole Blood 288 mg/dL (75-99)
[2020-01-14] MEDS: INSULIN ASPART (NovoLOG) 100 UNIT/ML VIAL SQ SCH ×4 (06:18→21:02)
[2020-01-14] MEDS: ISOSORBIDE MONONITRATE ER 30 MG TAB.ER.24H PO SCH (08:03)
[2020-01-14] MEDS: metroNIDAZOLE-NS PMX 500 MG in SALINE 1 100ML.BAG IVPB SCH ×3 (08:04→23:43)
[2020-01-14] MEDS: ASPIRIN 81 MG PO SCH (09:43)
[2020-01-14] MEDS: ENOXAPARIN 40 MG/0.4 ML SYRINGE SQ SCH (09:43)
--- NOTE | 2020-01-14 11:16 | P.PN ---
Subjective Progress Note Date: 01/14/20 No new complaints today. Pt says pain is much better controlled. Plans for IR abscess drainage today. Objective - Vital Signs Vital signs: Vital Signs Temp 98.5 F 01/14/20 08:00 Pulse 97 01/14/20 08:00 Resp 18 01/14/20 08:00 BP 147/70 01/14/20 08:00 Pulse Ox 99 01/14/20 08:00 Intake & Output 01/13/20 01/14/20 01/14/20 18:59 06:59 18:59 Intake Total 1684 Output Total 200 350 Balance 1484 -350 Weight 66.9 kg Intake: Intake, IV Titration 1240 Amount Piperacillin-Tazobactam 3 100 .375 gm In Sodium Chloride 0.9% 100 ml @ 25 mls/hr IVPB Q8H KAT Rx#: [id number] Sodium Chloride 0.9% 1, 1040 000 ml @ 130 mls/hr IV . Q7H42M KAT Rx#:[id number] metroNIDAZOLE-NS PMX 500 100 mg In Saline 1 100ml.bag @ 100 mls/hr IVPB Q8HR KAT Rx#:[id number] Oral 444 Output: Urine 200 350 Other: Voiding Method Bedside Commode Bedside Commode Bedside Commode Urinal Urinal Urinal # Voids 2 4 # Bowel Movements 2 1 - Exam Gen: awake, alert HEENT: normocephalic, atraumatic, good hearing acuity, dry mucous membranes Resp: CTAB, good air exchange, no accessory muscle use, no wheezes, crackles, rhonchi CVS: good distal perfusion x 4, RRR, no murmurs, clicks, gallops GI: distended, TTP : no SPT, no CVAT, skelton catheter not present MSK: no pitting edema, no clubbing Neuro: non-focal, no sensory deficits, appropriate tone Psych: cooperative, euthymic mood - Labs CBC & Chem 7: 01/13/20 06:25 01/13/20 06:25 Labs: Abnormal Lab Results - Last 24 Hours (Table) 01/13/20 01/13/20 01/13/20 Range/Units 12:00 17:17 19:54 POC Glucose (mg/dL) 266 H 244 H 265 H (75-99) mg/dL 01/14/20 Range/Units 06:04 POC Glucose (mg/dL) 288 H (75-99) mg/dL Microbiology - Last 24 Hours (Table) 01/12/20 22:57 Urine Culture - Final Urine,Clean Catch Josselyn albicans 01/12/20 11:59 Blood Culture - Preliminary Blood No Growth after 24 hours Assessment and Plan Assessment: Sepsis due to diverticular abscess Normocytic anemia Elevated d-dimer Hyperkalemia Acute kidney injury Lactic acidosis Diabetes mellitus CAD Hypertension Hypothyroidism Bladder and bowel cancer Patient meets sepsis criteria. CT abdomen and pelvis shows diverticular abscess. Plans: Start Flagyl and Zosyn IV. Zofran as needed for nausea or vomiting. Start normal saline at 130 mL per hour. Tylenol as needed for fever. 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 Follow blood culture. Follow surgery recommendations. IR drainage planned today. Hemoglobin 11.4. Likely related to malignancy. Plans: Repeat CBC tomorrow morning. Transfuse if hemoglobin less than 7. D-dimer 1.62. Likely related to malignancy. Plans: Low likelihood of PE. V/Q scan shows low probability PE. Continue to monitor. Potassium 5.2. Likely due to dehydration. Plans: Hydration as above. Telemetry monitoring. Repeat BMP tomorrow morning. Hold losartan. Creatinine 1.7. Likely due to dehydration. Plans: Hydration as above. Avoid nephrotoxins. Repeat BMP tomorrow morning. Hold losartan. Lactic acid 3.5. Likely related to underlying infection. Plans: Hydration as above. Repeat until negative. Ubfyy-dx-ezip glucose 248. Plans: Insulin sliding scale. Regular Accu-Cheks. Hypoglycemic precautions. Plans: Continue aspirin and Plavix. Plans: Continue Imdur. Plans: Continue Synthroid. Plans: Follow oncology consultation. DVT prophylaxis: [Lovenox] Discussed with: [Patient] Anticipated discharge: [3-4 days] Anticipated discharge place: [Home]
--- NOTE | 2020-01-14 11:22 | P.PN ---
Progress Note - Text Progress Note Date: 01/14/20 Patient still has complaints of lower quadrant abdominal pain. Apparently scheduled for CT-guided drainage of diverticular abscess. On exam vital signs are stable. Abdomen soft there is tenderness left lower quadrant. The patient undergo eventual radiology drainage of sigmoid abscess today.
[2020-01-14 12:17] LABS: Glucose,Whole Blood 182 mg/dL (75-99)
--- NOTE | 2020-01-14 15:10 | P.OP ---
Date of Procedure: 01/14/20 Preoperative Diagnosis: abdominal abscess Procedure(s) Performed: CT-guided 10FR coiled catheter drainage of abdominal fluid collection Implants: 10FR coiled catheter Anesthesia: local Surgeon: Leigha العراقي Estimated Blood Loss (ml): 0 Pathology: other (purulent fluid sent to pathology department for testing) Condition: stable Disposition: floor Operative Findings: 240 ml purulent fluid drained from catheter into gravity collection bag at time of catheter placement
[2020-01-14] MEDS: ACETAMINOPHEN TAB 325 MG TAB PO PRN (18:50)
[2020-01-14] MEDS: LACTATED RINGERS 1,000 ML IV SCH ×5 (18:51→23:41)
[2020-01-14 20:24] LABS: Glucose,Whole Blood 185 mg/dL (75-99)
[2020-01-14] MEDS: CLOPIDOGREL 75 MG TAB PO SCH (21:02)
[2020-01-15] MEDS: PIPERACILLIN-TAZOBACTAM 3.375 GM in SODIUM CHLORIDE 0.9% 100 ML IVPB SCH ×3 (02:54→20:36)
[2020-01-15] MEDS: SODIUM CHLORIDE 0.9% 1,000 ML IV SCH ×3 (05:37→20:37)
[2020-01-15 06:04] LABS: Glucose,Whole Blood 237 mg/dL (75-99)
[2020-01-15] MEDS: LEVOTHYROXINE 50 MCG TAB PO SCH (06:26)
[2020-01-15 06:45] LABS: Basophils % (A) 0 %; Eosinophils % (A) 0 %; HCT 27.8 % (39.0-53.0); HGB 8.6 gm/dL (13.0-17.5); Hypochromasia Marked; Lymphocytes # (A) 1.1 k/uL (1.0-4.8); Lymphocytes % (A) 9 %; MCH 27.6 pg (25.0-35.0); MCHC 30.9 g/dL (31.0-37.0); MCV 89.4 fL (80.0-100.0); Mean Platelet Volume 7.4; Monocytes # (A) 0.5 k/uL (0-1.0); Monocytes % (A) 5 %; Neutrophils # (A) 9.9 k/uL (1.3-7.7); Neutrophils % (A) 83 %; Platelet Count 279 k/uL (150-450); RBC 3.11 m/uL (4.30-5.90); RDW 15.4 % (11.5-15.5); WBC 11.9 k/uL (3.8-10.6)
[2020-01-15] MEDS: INSULIN ASPART (NovoLOG) 100 UNIT/ML VIAL SQ SCH ×4 (06:45→20:36)
[2020-01-15 06:54] LABS: Calcium 7.6 mg/dL (8.4-10.2); Magnesium 1.7 mg/dL (1.6-2.3); Potassium 4.1 mmol/L (3.5-5.1)
[2020-01-15] MEDS: metroNIDAZOLE-NS PMX 500 MG in SALINE 1 100ML.BAG IVPB SCH ×3 (08:54→23:37)
[2020-01-15] MEDS: ISOSORBIDE MONONITRATE ER 30 MG TAB.ER.24H PO SCH (08:55)
[2020-01-15] MEDS: ENOXAPARIN 40 MG/0.4 ML SYRINGE SQ SCH (08:55)
[2020-01-15] MEDS: ASPIRIN 81 MG PO SCH (08:55)
--- NOTE | 2020-01-15 09:58 | CT ---
EXAMINATION TYPE: CT guided abscess drainage DATE OF EXAM: 01/14/2020 HISTORY: Abdominal abscess COMPARISON: CT abdomen pelvis 01/12/2020 INSPECTOR SHELLS: Dr. Leigha العراقي PROCEDURE: The procedure was discussed with the patient. The risks, complications, benefits, and alternatives we re discussed and any questions were answered. Informed consent was obtained. Preprocedure preliminary imaging redemonstrated a large lower abdominal mesenteric fluid collection w ith internal foci of air. Maximal barrier technique was utilized. The left lower quadrant skin over suitable path to the absces s was localized with CT and the overlying skin prepped and draped. Lidocaine was used for local anest hesia. A skin layla made with a scalpel. Access was gained using CT guidance with a 5FR 10 cm one-step centesis catheter attached to a 3 cc syringe and purulent material was returned. A 0.035 inch wire w as advanced and the access site was upsized. Subsequently an 10-FR drain was deployed within the abs cess cavity. 240 cc of purulent material aspirated and sent for laboratory analysis. Catheter fixed i n place with stay-fix device and the cathter was attached to gravity drainage. No immediate complicat ion. The patient remained in stable condition. Postprocedure imaging demonstrated significant reduction in size of the lower abdominal mesenteric fl uid collection. No evidence of significant hemorrhage. Drain care orders placed in patient's chart. IMPRESSION: Status post CT-guided 10FR coiled catheter drainage of lower abdominal mesenteric abscess. 240 cc of purulent fluid aspirated at time of catheter placement.
[2020-01-15] MEDS: MORPHINE SULFATE 4 MG/ML SYRINGE IVP PRN ×2 (10:30→14:49)
--- NOTE | 2020-01-15 11:06 | P.PN ---
Subjective Progress Note Date: 01/15/20 Rec'd drainage of abscess yesterday with 250cc of purulent fluid drained. Abd pain better today. Still reports minimal appetite. Microbiology pending. Objective - Vital Signs Vital signs: Vital Signs Temp 96.5 F L 01/15/20 08:00 Pulse 93 01/15/20 08:00 Resp 16 01/15/20 08:00 BP 128/62 01/15/20 08:00 Pulse Ox 98 01/15/20 08:00 Intake & Output 01/14/20 01/15/20 01/15/20 18:59 06:59 18:59 Intake Total 995 Output Total 150 640 0 Balance 845 -640 0 Weight 72.5 kg Intake: Blood Product 995 Platelet Pheresis Pas-C 706 Unit [id number] Platelet Pheresis Pas-C 289 Unit [id number] Output: Drainage 150 100 0 Right Lower Abdomen 150 100 0 Urine 540 Other: Voiding Method Bedside Commode Indwelling Catheter Indwelling Catheter Urinal # Voids 5 # Bowel Movements 1 - Exam Gen: awake, alert HEENT: normocephalic, atraumatic, good hearing acuity, dry mucous membranes Resp: CTAB, good air exchange, no accessory muscle use, no wheezes, crackles, rhonchi CVS: good distal perfusion x 4, RRR, no murmurs, clicks, gallops GI: distended, TTP, abdominal drain in place : no SPT, no CVAT, skelton catheter not present MSK: no pitting edema, no clubbing Neuro: non-focal, no sensory deficits, appropriate tone Psych: cooperative, euthymic mood - Labs CBC & Chem 7: 01/15/20 06:05 01/15/20 06:05 Labs: Abnormal Lab Results - Last 24 Hours (Table) 01/14/20 01/14/20 01/15/20 Range/Units 12:16 20:23 06:03 WBC (3.8-10.6) k/uL RBC (4.30-5.90) m/uL Hgb (13.0-17.5) gm/dL Hct (39.0-53.0) % MCHC (31.0-37.0) g/dL Neutrophils # (1.3-7.7) k/uL Sodium (137-145) mmol/L Chloride (98-107) mmol/L Carbon Dioxide (22-30) mmol/L Creatinine (0.66-1.25) mg/dL Glucose (74-99) mg/dL POC Glucose (mg/dL) 182 H 185 H 237 H (75-99) mg/dL Calcium (8.4-10.2) mg/dL 01/15/20 01/15/20 Range/Units 06:05 06:05 WBC 11.9 H (3.8-10.6) k/uL RBC 3.11 L (4.30-5.90) m/uL Hgb 8.6 L (13.0-17.5) gm/dL Hct 27.8 L (39.0-53.0) % MCHC 30.9 L (31.0-37.0) g/dL Neutrophils # 9.9 H (1.3-7.7) k/uL Sodium 135 L (137-145) mmol/L Chloride 109 H (98-107) mmol/L Carbon Dioxide 19 L (22-30) mmol/L Creatinine 1.77 H (0.66-1.25) mg/dL Glucose 205 H (74-99) mg/dL POC Glucose (mg/dL) (75-99) mg/dL Calcium 7.6 L (8.4-10.2) mg/dL Microbiology - Last 24 Hours (Table) 01/14/20 14:50 Gram Stain - Preliminary Aspirate Body Fluid Culture - Preliminary 01/14/20 14:50 Anaerobic Culture - Preliminary Aspirate 01/14/20 14:50 Acid Fast Bacilli Culture - Preliminary Aspirate 01/14/20 14:50 Fungal Culture - Preliminary Aspirate 01/12/20 11:59 Blood Culture - Preliminary Blood No Growth after 48 hours 01/12/20 22:57 Urine Culture - Final Urine,Clean Catch Josselyn albicans Assessment and Plan Assessment: Sepsis due to diverticular abscess Normocytic anemia Elevated d-dimer Hyperkalemia Acute kidney injury Lactic acidosis Diabetes mellitus CAD Hypertension Hypothyroidism Bladder and bowel cancer Patient meets sepsis criteria. CT abdomen and pelvis shows diverticular abscess. Plans: Start Flagyl and Zosyn IV. Zofran as needed for nausea or vomiting. Start normal saline at 130 mL per hour. Tylenol as needed for fever. 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 Telemetry monitoring. Follow blood culture - NGTD. Follow surgery recommendations. S/p IR drainage of 250cc purulent fluid. Follow up microbiology. Hemoglobin 11.4. Likely related to malignancy. Plans: Repeat CBC tomorrow morning. Transfuse if hemoglobin less than 7. D-dimer 1.62. Likely related to malignancy. Plans: Low likelihood of PE. V/Q scan shows low probability PE. Continue to monitor. Potassium 5.2. Likely due to dehydration. Plans: Hydration as above. Telemetry monitoring. Repeat BMP tomorrow morning. Hold losartan. Creatinine 1.7. Likely due to dehydration. Plans: Hydration as above. Avoid nephrotoxins. Repeat BMP tomorrow morning. Hold losartan. Lactic acid 3.5. Likely related to underlying infection. Plans: Hydration as above. Repeat until negative. Cntjy-qy-cuun glucose 248. Plans: Insulin sliding scale. Regular Accu-Cheks. Hypoglycemic precautions. Plans: Continue aspirin and Plavix. Plans: Continue Imdur. Plans: Continue Synthroid. Plans: Follow oncology consultation. DVT prophylaxis: [Lovenox] Discussed with: [Patient] Anticipated discharge: [3-4 days] Anticipated discharge place: [Home]
[2020-01-15 11:40] LABS: Glucose,Whole Blood 177 mg/dL (75-99)
--- NOTE | 2020-01-15 14:13 | P.PN ---
Subjective Progress Note Date: 01/15/20 CHIEF COMPLAINT: Diverticular abscess HISTORY OF PRESENT ILLNESS: Patient is status post CT guided drainage of the diverticular abscess. Patient had 240 mL of purulent fluid aspirated from the abscess. He has drainage tube in place and has pus-type fluid. Still having some abdominal pain. Denies any nausea or vomiting. He had a temp last night of 103.2 and tachycardic. White count has come down from 21.8-11.9. Hemoglobin 8.6. He is on Flagyl and IV Zosyn. PHYSICAL EXAM: VITAL SIGNS: Reviewed. GENERAL: Well-developed in no acute distress. HEENT: No sclera icterus. Extraocular movements grossly intact. Moist buccal mucosa. Head is atraumatic, normocephalic. ABDOMEN: Soft. Nondistended. Tenderness left lower quadrant. Drainage tube present with pus in bag NEUROLOGIC: Alert and oriented. Cranial nerves II through XII grossly intact. ASSESSMENT: 1. Diverticular abscess status post computed tomography scan guided drainage 2. History of bladder cancer followed by oncology PLAN: -Continue IV antibiotics Flagyl and Zosyn -Consult infectious disease -Continue regular diet -Continue DVT prophylaxis Lovenox Physician Court Monitor note has been reviewed by physician. Signing provider agrees with the documented findings, assessment, and plan of care. Objective - Vital Signs Vital signs: Vital Signs Temp 97.6 F 01/15/20 11:21 Pulse 80 01/15/20 11:21 Resp 16 01/15/20 11:21 BP 113/59 01/15/20 11:21 Pulse Ox 98 01/15/20 11:21 Intake & Output 01/14/20 01/15/20 01/15/20 18:59 06:59 18:59 Intake Total 995 Output Total 150 640 0 Balance 845 -640 0 Weight 72.5 kg 72.5 kg Intake: Blood Product 995 Platelet Pheresis Pas-C 706 Unit [id number] Platelet Pheresis Pas-C 289 Unit [id number] Output: Drainage 150 100 0 Right Lower Abdomen 150 100 0 Urine 540 Other: Voiding Method Bedside Commode Indwelling Catheter Indwelling Catheter Urinal # Voids 5 # Bowel Movements 1 - Labs CBC & Chem 7: 01/15/20 06:05 01/15/20 06:05 Labs: Abnormal Lab Results - Last 24 Hours (Table) 01/14/20 01/15/20 01/15/20 Range/Units 20:23 06:03 06:05 WBC 11.9 H (3.8-10.6) k/uL RBC 3.11 L (4.30-5.90) m/uL Hgb 8.6 L (13.0-17.5) gm/dL Hct 27.8 L (39.0-53.0) % MCHC 30.9 L (31.0-37.0) g/dL Neutrophils # 9.9 H (1.3-7.7) k/uL Sodium (137-145) mmol/L Chloride (98-107) mmol/L Carbon Dioxide (22-30) mmol/L Creatinine (0.66-1.25) mg/dL Glucose (74-99) mg/dL POC Glucose (mg/dL) 185 H 237 H (75-99) mg/dL Calcium (8.4-10.2) mg/dL 01/15/20 01/15/20 Range/Units 06:05 11:38 WBC (3.8-10.6) k/uL RBC (4.30-5.90) m/uL Hgb (13.0-17.5) gm/dL Hct (39.0-53.0) % MCHC (31.0-37.0) g/dL Neutrophils # (1.3-7.7) k/uL Sodium 135 L (137-145) mmol/L Chloride 109 H (98-107) mmol/L Carbon Dioxide 19 L (22-30) mmol/L Creatinine 1.77 H (0.66-1.25) mg/dL Glucose 205 H (74-99) mg/dL POC Glucose (mg/dL) 177 H (75-99) mg/dL Calcium 7.6 L (8.4-10.2) mg/dL Microbiology - Last 24 Hours (Table) 01/14/20 14:50 Gram Stain - Preliminary Aspirate Body Fluid Culture - Preliminary 01/14/20 14:50 Anaerobic Culture - Preliminary Aspirate 01/14/20 14:50 Acid Fast Bacilli Culture - Preliminary Aspirate 01/14/20 14:50 Fungal Culture - Preliminary Aspirate 01/12/20 11:59 Blood Culture - Preliminary Blood No Growth after 48 hours 01/12/20 22:57 Urine Culture - Final Urine,Clean Catch Josselyn albicans
[2020-01-15] MEDS: ONDANSETRON 4 MG/2 ML VIAL IVP PRN (14:57)
[2020-01-15] MEDS: HYDROmorphone 1 MG/ML 1 ML SYRINGE IVP PRN ×2 (16:22→20:37)
[2020-01-15 16:28] LABS: Glucose,Whole Blood 172 mg/dL (75-99)
--- NOTE | 2020-01-15 16:58 | PN ---
Please see the full consult. MTDD
[2020-01-15 20:16] LABS: Glucose,Whole Blood 293 mg/dL (75-99)
[2020-01-15] MEDS: CLOPIDOGREL 75 MG TAB PO SCH (20:36)
--- NOTE | 2020-01-15 20:44 | CONS ---
CONSULTATION REASON FOR CONSULT: Renal failure. HISTORY OF PRESENT ILLNESS: Patient is an 79-year-old male who was admitted to the hospital on 01/12/2020 with abdominal pain and generalized weakness. CT of the abdomen showed fluid collection with air-fluid levels. The patient was seen by Surgery and had CT-guided drainage of the abdominal fluid collection on 01/14/2020. He is maintained on antibiotics. Patient's serum creatinine was 1.7 on initial admission. It did go down to 1.4. It is back up to 1.7. Review of previous labs shows evidence of acute kidney injury in November of [address] the way up to 4. Previously it has been at 1.7 and 1.8 mg/dL. 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 He was referred to [facility] for further surgical evaluation. Patient was being considered for radical cystectomy and ileal loop urostomy. However, it appears that he was noted to have invasion into the sigmoid colon as well. Currently patient is maintained on IV fluids. His urine output was about 790 mL for 24 hours. PAST MEDICAL HISTORY: CKD, stage 4. Baseline creatinine 1.4 to 1.7 mg/dL. Bladder cancer with extensive involvement of the bladder muscle as well as sigmoid colon. History of acute kidney injury in November with creatinine peaking at around 4. History of type 2 diabetes. Hypertension. PAST SURGICAL HISTORY: Hand surgery, back surgery, cystoscopies. SOCIAL HISTORY: Negative for smoking, drug abuse, alcohol abuse. MEDICATIONS: Medications at home prior to admission included vitamin C, vitamin D, B12, insulin, losartan, Plavix, Synthroid, aspirin, Zofran. ALLERGIES: ALLERGIES include CIPRO, DARVON, IV CONTRAST. REVIEW OF SYSTEMS: As per HPI. Other systems negative. PHYSICAL EXAMINATION: Patient is comfortable, awake, alert, oriented x3, not in any acute distress. Blood pressure was 113/59, heart rate 80 per minute. He is afebrile. EXAMINATION OF THE HEART: S1 and S2. EXAMINATION OF LUNGS: Bilateral breath sounds are heard. ABDOMEN: Soft. Mild tenderness noted. Examination of lower extremities shows no significant edema. CLOTHING SORTER exam is grossly intact. LABS: Labs show sodium 135, potassium 4.1, chloride 109. CO2 is 19, BUN 18, creatinine 1.7, hemoglobin 8.6 g/dL. ASSESSMENT: 1. Acute kidney injury in November of 2019, mostly acute tubular necrosis, currently improved with creatinine down to about 1.7 mg/dL. 2. Chronic kidney disease secondary to nephrosclerosis. Baseline creatinine 1.6 to 1.8. Renal function currently close to baseline. 3. Invasive bladder cancer with no plans for surgical treatment at this time. Patient had gone for second opinion at [facility]. 4. Intraabdominal abscess, currently with drain. Cultures pending. 5. Hypertension, controlled. PLAN: Encourage increased oral intake. May continue with IV fluids. Repeat labs in a.m. Avoid nephrotoxic agents. MMODL / IJN: [id number] /
--- NOTE | 2020-01-15 21:05 | P.PN ---
Subjective Progress Note Date: 01/15/20 Principal diagnosis: Fever/Abscess Patient seen and evaluated, up in chair and resting comfortably. He is status post CT guided drainage of diverticular abscess, T-max in 24 hours 103.2. He still complains of abdominal pain. Objective - Vital Signs Vital signs: Vital Signs Temp 97.9 F 01/15/20 15:04 Pulse 95 01/15/20 15:04 Resp 16 01/15/20 15:04 BP 125/60 01/15/20 15:04 Pulse Ox 99 01/15/20 15:04 Intake & Output 01/14/20 01/15/20 01/15/20 18:59 06:59 18:59 Intake Total 995 Output Total 150 640 855 Balance 845 -640 -855 Weight 72.5 kg 72.5 kg Intake: Blood Product 995 Platelet Pheresis Pas-C 706 Unit [id number] Platelet Pheresis Pas-C 289 Unit [id number] Output: Drainage 150 100 55 Right Lower Abdomen 150 100 55 Urine 540 700 Emesis 100 Other: Voiding Method Bedside Commode Indwelling Catheter Indwelling Catheter Urinal # Voids 5 # Bowel Movements 1 - Exam - Constitutional General appearance: mild distress - EENT Eyes: EOMI, PERRLA ENT: hearing grossly normal, normal oropharynx - Neck Neck: no lymphadenopathy Thyroid: bilateral: normal size - Respiratory Respiratory: bilateral: diminished - Cardiovascular Rhythm: regular Heart sounds: normal: S1, S2 - Gastrointestinal With abdominal discomfort on palpation in the lower abdomen somewhat diffuse. No obvious rebound General gastrointestinal: normal bowel sounds, soft - Integumentary Integumentary: normal - Neurologic Neurologic: CNII-XII intact - Musculoskeletal Musculoskeletal: generalized weakness, strength equal bilaterally - Psychiatric Lethargic, responses are slow but approp - Labs CBC & Chem 7: 01/15/20 06:05 01/15/20 06:05 Labs: Abnormal Lab Results - Last 24 Hours (Table) 01/14/20 01/15/20 01/15/20 Range/Units 20:23 06:03 06:05 WBC 11.9 H (3.8-10.6) k/uL RBC 3.11 L (4.30-5.90) m/uL Hgb 8.6 L (13.0-17.5) gm/dL Hct 27.8 L (39.0-53.0) % MCHC 30.9 L (31.0-37.0) g/dL Neutrophils # 9.9 H (1.3-7.7) k/uL Sodium (137-145) mmol/L Chloride (98-107) mmol/L Carbon Dioxide (22-30) mmol/L Creatinine (0.66-1.25) mg/dL Glucose (74-99) mg/dL POC Glucose (mg/dL) 185 H 237 H (75-99) mg/dL Calcium (8.4-10.2) mg/dL 01/15/20 01/15/20 Range/Units 06:05 11:38 WBC (3.8-10.6) k/uL RBC (4.30-5.90) m/uL Hgb (13.0-17.5) gm/dL Hct (39.0-53.0) % MCHC (31.0-37.0) g/dL Neutrophils # (1.3-7.7) k/uL Sodium 135 L (137-145) mmol/L Chloride 109 H (98-107) mmol/L Carbon Dioxide 19 L (22-30) mmol/L Creatinine 1.77 H (0.66-1.25) mg/dL Glucose 205 H (74-99) mg/dL POC Glucose (mg/dL) 177 H (75-99) mg/dL Calcium 7.6 L (8.4-10.2) mg/dL Microbiology - Last 24 Hours (Table) 01/12/20 11:59 Blood Culture - Preliminary Blood No Growth after 72 hours 01/14/20 14:50 Gram Stain - Preliminary Aspirate Body Fluid Culture - Preliminary 01/14/20 14:50 Anaerobic Culture - Preliminary Aspirate 01/14/20 14:50 Acid Fast Bacilli Culture - Preliminary Aspirate 01/14/20 14:50 Fungal Culture - Preliminary Aspirate Assessment and Plan Plan: VQ scan report reviewed Chest x-ray: report reviewed CT scan - abdomen: report reviewed CT scan - pelvis: report reviewed Assessment and Plan SIRS (systemic inflammatory response syndrome) - Originally evaluated in the office with noted low blood pressure, elevated h eart rate and elevated respiratory rate. He was therefore sent in to the emergency room and has been admitted with antibiotics, intervention, and monitoring. - A VQ scan and cardiac ischemia workup were negative. - CT of the abdomen and pelvis did show a fluid collection adjacent to the sigmoid colon. He is now status post drainage of abscess - T-max in 24 hours 103.2F. - The patient had a recent surgical procedure on 12/25/19 at [facility]. - Gram Stain body fluid culture with Gran Negative Bacilli. 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 plus considering the average post operative timeframe of 3-4 weeks when there is no obvious complications present. - In addition to his current acute situation other variables that must be considered are patient's age, multiple medical problems, and underlying renal insufficiency which may significantly increased risk of adverse events with chemotherapy. - At this time the plan is to set up a family meeting once the patient is more stable to discuss options. Dehydration Acute on Chronic Renal Insufficiency: - Due to ongoing nausea, vomiting, and decreased oral intake. - Continued IV hydration. - Post operative creatinine was mid 2's from [facility] - Today 1.7 - Continue to monitor renal function
--- NOTE | 2020-01-15 23:54 | P.CONS ---
History of Present Illness - Reason for Consult Consult date: 01/15/20 Abdominal abscess Requesting physician: Ryan Garcia - Chief Complaint Abdominal pain and vomiting x few days - History of Present Illness Patient is 79 year male who apparently recently admitted at any for Hospital patient mentioned for about a month with the patient did have laparoscopy for bladder and colon cancer however did not have any surgical resection patient has been discharged on 12/31/2019 patient has been evaluated in outpatient setting by his oncologist and was sent to the ER on 01/12/2020 for evaluation of persistent nausea vomiting and abdominal pain the patient's symptom has been going on for a few days before presentation to the hospital. The patient remains symptom has been nausea vomiting and unable to keep anything down patient possible banding of abdominal pain mostly in the lower abdominal area describing it more for the leaking to shop intensity 78 out of 10 and no radiation patient denies having any diarrhea or constipation patient did have a CT of abdominal pelvis completed we did shows large fluid collection suspicious for abscess contagious with sigmoid colon, patient did have a white count 26.5 and despite the fever to 103F, the patient did have a drainage of this abscess this morning by interventional radiology, patient has been treated with Zosyn and Flagyl infectious disease was consulted for further management of antibiotic therapy Review of Systems Positive point has been mentioned in the HPI rest of the systems are negative Past Medical History Past Medical History: Cancer, Chest Pain / Angina, Diabetes Mellitus, Hypertension Additional Past Medical History / Comment(s): shortness of breath, bowel and bladder ca History of Any Multi-Drug Resistant Organisms: None Reported Past Surgical History: Back Surgery Additional Past Surgical History / Comment(s): hand surgery. back surgery with 4 screws and 2 rods Past Anesthesia/Blood Transfusion Reactions: No Reported Reaction Additional Past Anesthesia/Blood Transfusion Reaction / Comm: son allergic to one type of anesthesia Past Psychological History: No Psychological Hx Reported Smoking Status: Never smoker Past Alcohol Use History: None Reported Additional Past Alcohol Use History / Comment(s): quit 1990 smoked 30+ years on and off Past Drug Use History: None Reported - Past Family History Mother Family Medical History: Unable to Obtain Additional Family Medical History / Comment(s): adopted Medications and Allergies Home Medications Medication Instructions Recorded Confirmed Type Ascorbic Acid [Vitamin C] 500 mg PO DAILY 03/31/18 01/12/20 History Cholecalciferol [Vitamin D3] 1,000 unit PO DAILY 03/31/18 01/12/20 History Cyanocobalamin [Vitamin B-12] 500 mcg PO DAILY 03/31/18 01/12/20 History Losartan Potassium 50 mg PO DAILY 03/31/18 01/12/20 History Insulin Aspart [NovoLOG] See Protocol SQ TID-W/MEALS 08/01/18 01/12/20 History Insulin Glargine [Lantus] 20 - 30 unit SQ HS 10/10/19 01/12/20 History Isosorbide Mononitrate [Isosorbide 30 mg PO DAILY 10/10/19 01/12/20 History Mononitrate ER] Levothyroxine Sodium [Synthroid] 50 mcg PO DAILY 10/10/19 01/12/20 History Clopidogrel [Plavix] 75 mg PO HS 12/05/19 01/12/20 History Aspirin [[place] Aspirin EC] 81 mg PO DAILY 01/12/20 01/12/20 History Ondansetron Odt [Zofran Odt] 8 mg PO Q8HR PRN 01/12/20 01/12/20 History Allergies Allergy/AdvReac Type Severity Reaction Status Date / Time ciprofloxacin [From Cipro] Allergy Swelling Verified 01/12/20 15:48 propoxyphene [From Darvon] Allergy Hallucinati Verified 01/12/20 15:48 ons Iodinated Contrast Media AdvReac Dyspnea Verified 01/12/20 15:48 [Iodinated Contrast- Oral and IV Dye] Physical Exam Vitals: Vital Signs Temp Pulse Resp BP Pulse Ox 01/15/20 15:04 97.9 F 95 16 125/60 99 01/15/20 11:21 97.6 F 80 16 113/59 98 01/15/20 08:00 96.5 F L 93 16 128/62 98 01/15/20 04:00 98.8 F 93 19 130/72 96 01/15/20 00:00 98.3 F 94 16 105/57 99 01/14/20 20:00 99.4 F 118 H 17 98/58 97 01/14/20 18:07 103.2 F H 134 H 18 165/78 94 L Intake and Output 01/15/20 01/15/20 01/15/20 06:59 14:59 22:59 Output Total 540 0 855 Balance -540 0 -855 Output: Drainage 0 0 55 Right Lower Abdomen 0 0 55 Urine 540 700 Emesis 100 Other: Voiding Method Indwelling Catheter Indwelling Catheter Weight 72.5 kg 72.5 kg GENERAL DESCRIPTION: An elderly male lying in bed, no distress. No tachypnea or accessory muscle of respiration use. HEENT: Shows Pallor , no scleral icterus. Oral mucous membrane is dry. No pharyngeal erythema or thrush NECK: Trachea central, no thyromegaly. LUNGS: Unlabored breathing. Clear to auscultation anteriorly. No wheeze or crackle. HEART: S1, S2, regular rate and rhythm. No loud murmur ABDOMEN: Soft, mild lower abdominal tenderness , no guarding or rigidity, did have purulent drainage in the drainage bag EXTREMITIES: No edema of feet. SKIN: No rash, no masses palpable. NEUROLOGICAL: The patient is awake, alert, oriented x3, mood and affect normal. Results CBC & Chem 7: 01/15/20 06:05 01/15/20 06:05 Labs: Abnormal Lab Results - Last 24 Hours (Table) 01/14/20 01/15/20 01/15/20 Range/Units 20:23 06:03 06:05 WBC 11.9 H (3.8-10.6) k/uL RBC 3.11 L (4.30-5.90) m/uL Hgb 8.6 L (13.0-17.5) gm/dL Hct 27.8 L (39.0-53.0) % MCHC 30.9 L (31.0-37.0) g/dL Neutrophils # 9.9 H (1.3-7.7) k/uL Sodium (137-145) mmol/L Chloride (98-107) mmol/L Carbon Dioxide (22-30) mmol/L Creatinine (0.66-1.25) mg/dL Glucose (74-99) mg/dL POC Glucose (mg/dL) 185 H 237 H (75-99) mg/dL Calcium (8.4-10.2) mg/dL 01/15/20 01/15/20 Range/Units 06:05 11:38 WBC (3.8-10.6) k/uL RBC (4.30-5.90) m/uL Hgb (13.0-17.5) gm/dL Hct (39.0-53.0) % MCHC (31.0-37.0) g/dL Neutrophils # (1.3-7.7) k/uL Sodium 135 L (137-145) mmol/L Chloride 109 H (98-107) mmol/L Carbon Dioxide 19 L (22-30) mmol/L Creatinine 1.77 H (0.66-1.25) mg/dL Glucose 205 H (74-99) mg/dL POC Glucose (mg/dL) 177 H (75-99) mg/dL Calcium 7.6 L (8.4-10.2) mg/dL Microbiology - Last 24 Hours (Table) 01/12/20 11:59 Blood Culture - Preliminary Blood No Growth after 72 hours 01/14/20 14:50 Gram Stain - Preliminary Aspirate Body Fluid Culture - Preliminary 01/14/20 14:50 Anaerobic Culture - Preliminary Aspirate 01/14/20 14:50 Acid Fast Bacilli Culture - Preliminary Aspirate 01/14/20 14:50 Fungal Culture - Preliminary Aspirate Assessment and Plan Assessment: 1- patient presented to hospital with sepsis this patient did have a fever tachycardia and elevated white count source is abdominal abscess likely of diverticular origin and oriented to cover for enteric gram-negative organisms and anaerobes, To be The likely pathogen for this abscess 2- Cipro and contrast ALLERGY (1) Intra-abdominal abscess Current Visit: Yes Status: Acute Code(s): K65.1 - PERITONEAL ABSCESS SNOMED Code(s): 64347001 (2) Sepsis Current Visit: Yes Status: Acute Code(s): A41.9 - SEPSIS, UNSPECIFIED ORGANISM SNOMED Code(s): 65241083 Plan: 1- Zosyn 3.375 g every 8 hours 2- gentle IV fluid We will follow on clinical condition and cultures to further adjust medication if needed Thank you for this consultation will follow this patient with you Time with Patient: Greater than 30
[2020-01-16] MEDS: HYDROmorphone 1 MG/ML 1 ML SYRINGE IVP PRN ×2 (02:56→23:39)
[2020-01-16] MEDS: PIPERACILLIN-TAZOBACTAM 3.375 GM in SODIUM CHLORIDE 0.9% 100 ML IVPB SCH ×3 (02:56→20:11)
[2020-01-16] MEDS: SODIUM CHLORIDE 0.9% 1,000 ML IV SCH ×3 (02:57→18:15)
[2020-01-16] MEDS: LEVOTHYROXINE 50 MCG TAB PO SCH (06:11)
[2020-01-16 06:12] LABS: Glucose,Whole Blood 233 mg/dL (75-99)
[2020-01-16] MEDS: INSULIN ASPART (NovoLOG) 100 UNIT/ML VIAL SQ SCH ×4 (06:27→20:11)
[2020-01-16 06:33] LABS: Basophils % (A) 0 %; Eosinophils # (A) 0.1 k/uL (0-0.7); Eosinophils % (A) 1 %; HCT 23.4 % (39.0-53.0); Hypochromasia Marked; Lymphocytes # (A) 1.1 k/uL (1.0-4.8); Lymphocytes % (A) 9 %; MCH 27.1 pg (25.0-35.0); MCHC 29.8 g/dL (31.0-37.0); MCV 90.7 fL (80.0-100.0); Mean Platelet Volume 7.5; Monocytes # (A) 0.4 k/uL (0-1.0); Monocytes % (A) 3 %; Neutrophils # (A) 10.2 k/uL (1.3-7.7); Neutrophils % (A) 84 %; Platelet Count 271 k/uL (150-450); RBC 2.58 m/uL (4.30-5.90); RDW 15.5 % (11.5-15.5); WBC 12.1 k/uL (3.8-10.6)
[2020-01-16 06:54] LABS: Albumin 2.2 g/dL (3.5-5.0); Calcium 7.8 mg/dL (8.4-10.2); Magnesium 1.9 mg/dL (1.6-2.3); Potassium 3.9 mmol/L (3.5-5.1); Total Bilirubin 0.3 mg/dL (0.2-1.3); Total Protein 4.6 g/dL (6.3-8.2)
[2020-01-16] MEDS: ASPIRIN 81 MG PO SCH (09:34)
[2020-01-16] MEDS: ISOSORBIDE MONONITRATE ER 30 MG TAB.ER.24H PO SCH (09:35)
[2020-01-16] MEDS: ENOXAPARIN 40 MG/0.4 ML SYRINGE SQ SCH (09:35)
[2020-01-16] MEDS: ONDANSETRON 4 MG/2 ML VIAL IVP PRN (09:35)
[2020-01-16] MEDS: metroNIDAZOLE-NS PMX 500 MG in SALINE 1 100ML.BAG IVPB SCH ×3 (09:35→23:35)
--- NOTE | 2020-01-16 11:36 | XR ---
EXAMINATION TYPE: XR abdomen 1V DATE OF EXAM: 01/16/2020 11:25 AM CLINICAL HISTORY: Abdominal pain and black stools. TECHNIQUE: Two portable supine KUB images of the abdomen are obtained. COMPARISON: CT abdomen and pelvis January 12, 2020. Abdominal x-ray December 16, 2019. FINDINGS: Gas is seen in nondistended stomach. Scattered gas is seen in predominantly non-distended s mall bowel loops. Some gas prominent small bowel loops left lower quadrant are noted. Gas and fecal m aterial is seen in non-distended colon. Postsurgical change L4-L5 level redemonstrated. Lung bases re main clear. There is new percutaneous pigtail catheter overlying the central pelvis from left-sided a pproach. Bilateral roughly 5 mm renal calculi redemonstrated. IMPRESSION: Overall nonobstructive bowel gas pattern.
[2020-01-16 12:21] LABS: Glucose,Whole Blood 248 mg/dL (75-99)
--- NOTE | 2020-01-16 12:35 | P.PN ---
Subjective Progress Note Date: 01/16/20 Patient continues to report very poor PO intake. Ongoing abdominal pain. +Melenic stools, melenic drain output. hemorrhagic skelton output. Objective - Vital Signs Vital signs: Vital Signs Temp 96.4 F L 01/16/20 08:00 Pulse 107 H 01/16/20 08:00 Resp 17 01/16/20 03:59 BP 141/67 01/16/20 08:00 Pulse Ox 98 01/16/20 08:00 Intake & Output 01/15/20 01/16/20 01/16/20 18:59 06:59 18:59 Intake Total 1140 480 360 Output Total 855 1000 Balance 285 -520 360 Weight 72.5 kg 72 kg Intake: IV 1140 Sodium Chloride 0.9% 1, 1040 000 ml @ 130 mls/hr IV . [facility]42M [facility] Rx#:[id number] metroNIDAZOLE-NS PMX 500 100 mg In Saline 1 100ml.bag @ 100 mls/hr IVPB Q8HR [facility] Rx#:[id number] Intake, IV Titration 360 Amount Piperacillin-Tazobactam 3 100 .375 gm In Sodium Chloride 0.9% 100 ml @ 25 mls/hr IVPB Q8H [facility] Rx#: [id number] Sodium Chloride 0.9% 1, 260 000 ml @ 130 mls/hr IV . Q7H42M [facility] Rx#:[id number] Oral 480 Output: Drainage 55 100 Right Lower Abdomen 55 100 Urine 700 900 Emesis 100 Other: Voiding Method Indwelling Catheter Indwelling Catheter Indwelling Catheter # Bowel Movements 1 1 - Exam Gen: awake, alert HEENT: normocephalic, atraumatic, good hearing acuity, dry mucous membranes Resp: CTAB, good air exchange, no accessory muscle use, no wheezes, crackles, rhonchi CVS: good distal perfusion x 4, RRR, no murmurs, clicks, gallops GI: distended, TTP, abdominal drain in place : no SPT, no CVAT, skelton catheter not present MSK: no pitting edema, no clubbing Neuro: non-focal, no sensory deficits, appropriate tone Psych: cooperative, euthymic mood - Labs CBC & Chem 7: 01/16/20 05:57 01/16/20 05:57 Labs: Abnormal Lab Results - Last 24 Hours (Table) 01/13/20 01/15/20 01/15/20 Range/Units 13:59 16:26 20:15 WBC (3.8-10.6) k/uL RBC (4.30-5.90) m/uL Hgb (13.0-17.5) gm/dL Hct (39.0-53.0) % MCHC (31.0-37.0) g/dL Neutrophils # (1.3-7.7) k/uL Chloride (98-107) mmol/L Carbon Dioxide (22-30) mmol/L BUN (9-20) mg/dL Creatinine (0.66-1.25) mg/dL Glucose (74-99) mg/dL POC Glucose (mg/dL) 172 H 293 H (75-99) mg/dL Calcium (8.4-10.2) mg/dL AST (17-59) U/L Total Protein (6.3-8.2) g/dL Albumin (3.5-5.0) g/dL Crossmatch See Detail 01/16/20 01/16/20 01/16/20 Range/Units 05:57 05:57 06:10 WBC 12.1 H (3.8-10.6) k/uL RBC 2.58 L (4.30-5.90) m/uL Hgb 7.0 L D (13.0-17.5) gm/dL Hct 23.4 L (39.0-53.0) % MCHC 29.8 L (31.0-37.0) g/dL Neutrophils # 10.2 H (1.3-7.7) k/uL Chloride 112 H (98-107) mmol/L Carbon Dioxide 20 L (22-30) mmol/L BUN 31 H (9-20) mg/dL Creatinine 1.53 H (0.66-1.25) mg/dL Glucose 199 H (74-99) mg/dL POC Glucose (mg/dL) 233 H (75-99) mg/dL Calcium 7.8 L (8.4-10.2) mg/dL AST 15 L (17-59) U/L Total Protein 4.6 L (6.3-8.2) g/dL Albumin 2.2 L (3.5-5.0) g/dL Crossmatch 01/16/20 Range/Units 11:55 WBC (3.8-10.6) k/uL RBC (4.30-5.90) m/uL Hgb (13.0-17.5) gm/dL Hct (39.0-53.0) % MCHC (31.0-37.0) g/dL Neutrophils # (1.3-7.7) k/uL Chloride (98-107) mmol/L Carbon Dioxide (22-30) mmol/L BUN (9-20) mg/dL Creatinine (0.66-1.25) mg/dL Glucose (74-99) mg/dL POC Glucose (mg/dL) 248 H (75-99) mg/dL Calcium (8.4-10.2) mg/dL AST (17-59) U/L Total Protein (6.3-8.2) g/dL Albumin (3.5-5.0) g/dL Crossmatch Microbiology - Last 24 Hours (Table) 01/14/20 18:16 Blood Culture - Preliminary Blood No Growth after 24 hours 01/14/20 14:50 Acid Fast Bacilli Smear - Final Aspirate Acid Fast Bacilli Culture - Preliminary 01/14/20 14:50 Gram Stain - Preliminary Aspirate Body Fluid Culture - Preliminary Gram Neg Bacilli 01/12/20 11:59 Blood Culture - Preliminary Blood No Growth after 72 hours Assessment and Plan Assessment: Sepsis due to diverticular abscess Normocytic anemia Elevated d-dimer Hyperkalemia Acute kidney injury Lactic acidosis Diabetes mellitus CAD Hypertension Hypothyroidism Bladder and bowel cancer Patient meets sepsis criteria. CT abdomen and pelvis shows diverticular abscess. Plans: Start Flagyl and Zosyn IV. Zofran as needed for nausea or vomiting. Start normal saline at 130 mL per hour. Tylenol as needed for fever. Pain control with morphine as needed + dilaudid [employer] (d/c'd 01/14). Telemetry monitoring. Follow blood culture - NGTD. Follow surgery recommendations. S/p IR drainage of 250cc purulent fluid. Follow up microbiology = growing GNR. Hemoglobin 11.4. Likely related to malignancy. Plans: Repeat CBC tomorrow morning. Transfuse if hemoglobin less than 7. D-dimer 1.62. Likely related to malignancy. Plans: Low likelihood of PE. V/Q scan shows low probability PE. Continue to monitor. Potassium 5.2. Likely due to dehydration. Plans: Hydration as above. Telemetry monitoring. Repeat BMP tomorrow morning. Hold losartan. Creatinine 1.7. Likely due to dehydration. Plans: Hydration as above. Avoid n ephrotoxins. Repeat BMP tomorrow morning. Hold losartan. Lactic acid 3.5. Likely related to underlying infection. Plans: Hydration as above. Repeat until negative. [id number] glucose 248. Plans: Insulin sliding scale. Regular Accu-Cheks. Hypoglycemic precautions. Plans: Continue aspirin and Plavix. Plans: Continue Imdur. Plans: Continue Synthroid. Plans: Follow oncology consultation. DVT prophylaxis: [Lovenox] Discussed with: [Patient] Anticipated discharge: [3-4 days] Anticipated discharge place: [Home]
--- NOTE | 2020-01-16 12:57 | P.PN ---
Subjective Progress Note Date: 01/16/20 Principal diagnosis: Fever/Abscess remains afebrile. Hemoglobin is 7 today, from greater than 8. Creatinine improving. Objective - Vital Signs Vital signs: Vital Signs Temp 96.4 F L 01/16/20 08:00 Pulse 107 H 01/16/20 08:00 Resp 17 01/16/20 03:59 BP 141/67 01/16/20 08:00 Pulse Ox 98 01/16/20 08:00 Intake & Output 01/15/20 01/16/20 01/16/20 18:59 06:59 18:59 Intake Total 1140 480 410 Output Total 855 1000 Balance 285 -520 410 Weight 72.5 kg 72 kg Intake: IV 1140 Sodium Chloride 0.9% 1, 1040 000 ml @ 130 mls/hr IV . Q7H42M [facility] Rx#:[id number] metroNIDAZOLE-NS PMX 500 100 mg In Saline 1 100ml.bag @ 100 mls/hr IVPB Q8HR [facility] Rx#:[id number] Intake, IV Titration 360 Amount Piperacillin-Tazobactam 3 100 .375 gm In Sodium Chloride 0.9% 100 ml @ 25 mls/hr IVPB Q8H [facility] Rx#: [id number] Sodium Chloride 0.9% 1, 260 000 ml @ 130 mls/hr IV . Q7H42M [facility] Rx#:[id number] Oral 480 50 Output: Drainage 55 100 Right Lower Abdomen 55 100 Urine 700 900 Emesis 100 Other: Voiding Method Indwelling Catheter Indwelling Catheter Indwelling Catheter # Bowel Movements 1 1 - Exam - Constitutional General appearance: mild distress - EENT Eyes: EOMI, PERRLA ENT: hearing grossly normal, normal oropharynx - Neck Neck: no lymphadenopathy Thyroid: bilateral: normal size - Respiratory Respiratory: bilateral: diminished - Cardiovascular Rhythm: regular Heart sounds: normal: S1, S2 - Gastrointestinal With abdominal discomfort on palpation in the lower abdomen somewhat diffuse. No obvious rebound General gastrointestinal: normal bowel sounds, soft - Integumentary Integumentary: normal - Neurologic Neurologic: CNII-XII intact - Musculoskeletal Musculoskeletal: generalized weakness, strength equal bilaterally - Psychiatric Lethargic, responses are slow but approp - Labs CBC & Chem 7: 01/16/20 05:57 01/16/20 05:57 Labs: Abnormal Lab Results - Last 24 Hours (Table) 01/13/20 01/15/20 01/15/20 Range/Units 13:59 16:26 20:15 WBC (3.8-10.6) k/uL RBC (4.30-5.90) m/uL Hgb (13.0-17.5) gm/dL Hct (39.0-53.0) % MCHC (31.0-37.0) g/dL Neutrophils # (1.3-7.7) k/uL Chloride (98-107) mmol/L Carbon Dioxide (22-30) mmol/L BUN (9-20) mg/dL Creatinine (0.66-1.25) mg/dL Glucose (74-99) mg/dL POC Glucose (mg/dL) 172 H 293 H (75-99) mg/dL Calcium (8.4-10.2) mg/dL AST (17-59) U/L Total Protein (6.3-8.2) g/dL Albumin (3.5-5.0) g/dL Crossmatch See Detail 01/16/20 01/16/20 01/16/20 Range/Units 05:57 05:57 06:10 WBC 12.1 H (3.8-10.6) k/uL RBC 2.58 L (4.30-5.90) m/uL Hgb 7.0 L D (13.0-17.5) gm/dL Hct 23.4 L (39.0-53.0) % MCHC 29.8 L (31.0-37.0) g/dL Neutrophils # 10.2 H (1.3-7.7) k/uL Chloride 112 H (98-107) mmol/L Carbon Dioxide 20 L (22-30) mmol/L BUN 31 H (9-20) mg/dL Creatinine 1.53 H (0.66-1.25) mg/dL Glucose 199 H (74-99) mg/dL POC Glucose (mg/dL) 233 H (75-99) mg/dL Calcium 7.8 L (8.4-10.2) mg/dL AST 15 L (17-59) U/L Total Protein 4.6 L (6.3-8.2) g/dL Albumin 2.2 L (3.5-5.0) g/dL Crossmatch 01/16/20 Range/Units 11:55 WBC (3.8-10.6) k/uL RBC (4.30-5.90) m/uL Hgb (13.0-17.5) gm/dL Hct (39.0-53.0) % MCHC (31.0-37.0) g/dL Neutrophils # (1.3-7.7) k/uL Chloride (98-107) mmol/L Carbon Dioxide (22-30) mmol/L BUN (9-20) mg/dL Creatinine (0.66-1.25) mg/dL Glucose (74-99) mg/dL POC Glucose (mg/dL) 248 H (75-99) mg/dL Calcium (8.4-10.2) mg/dL AST (17-59) U/L Total Protein (6.3-8.2) g/dL Albumin (3.5-5.0) g/dL Crossmatch Microbiology - Last 24 Hours (Table) 01/14/20 18:16 Blood Culture - Preliminary Blood No Growth after 24 hours 01/14/20 14:50 Acid Fast Bacilli Smear - Final Aspirate Acid Fast Bacilli Culture - Preliminary 01/14/20 14:50 Gram Stain - Preliminary Aspirate Body Fluid Culture - Preliminary Gram Neg Bacilli 01/12/20 11:59 Blood Culture - Preliminary Blood No Growth after 72 hours Assessment and Plan Plan: VQ scan report reviewed Chest x-ray: report reviewed CT scan - abdomen: report reviewed CT scan - pelvis: report reviewed Assessment and Plan SIRS (systemic inflammatory response syndrome) - Originally evaluated in the office with noted low blood pressure, elevated heart rate and elevated respiratory rate. He was therefore sent in to the emergency room and has been admitted with antibiotics, intervention, and monitoring. - A VQ scan and cardiac ischemia workup were negative. - CT of the abdomen and pelvis did show a fluid collection adjacent to the sigmoid colon. He is now status post drainage of abscess - Last fever 01/13 103.2F. Afebrile since. Repeat cultures negative from 01/13 - The patient had a recent surgical procedure on 12/25/19 at [facility]. - Gram Stain body fluid culture with Gran Negative Bacilli. 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 plus considering the average post operative timeframe of 3-4 weeks when there is no obvious complications present. - In addition to his current acute situation other variables that must be considered are patient's age, multiple medical problems, and underlying renal insufficiency which may significantly increased risk of adverse events with chemotherapy. - At this time the plan is to set up a family meeting once the patient is more stable to discuss options. Dehydration Normocytic Anemia: - Worsening - Repeat anemia panel - Possible secondary to recent procedure and dilution - transfuse less than 7 Acute on Chronic Renal Insufficiency: - Due to ongoing nausea, vomiting, and decreased oral intake. - Continued IV hydration. - Post operative creatinine was mid 2's from [facility] - Today improved at 1.5 - Continue to monitor renal function Weakness and decrease overall performance: - Continue to work with PT//OT - Will need to increase PS and resolve above issues prior to starting systemic treatment. Continue aggressive supportive care CBC in am Transfuse less than 7
--- NOTE | 2020-01-16 13:06 | P.PN ---
Subjective Progress Note Date: 01/16/20 CHIEF COMPLAINT: Diverticular abscess HISTORY OF PRESENT ILLNESS: Patient seen and examined with Dr. Garcia. Patient is status post CT guided drainage of the diverticular abscess. Patient had 240 mL of purulent fluid aspirated from the abscess. He has drainage tube in place and has pus-type fluid. Still having abdominal pain. Denies any nausea or vomiting. Afebrile. White count up at 12.1. Hemoglobin 7 he is receiving a unit of blood. No active bleeding noted. He is on Flagyl and IV Zosyn. PHYSICAL EXAM: VITAL SIGNS: Reviewed. GENERAL: Well-developed in no acute distress. HEENT: No sclera icterus. Extraocular movements grossly intact. Moist buccal mucosa. Head is atraumatic, normocephalic. ABDOMEN: Soft. Nondistended. Tenderness left lower quadrant. Drainage tube present with pus in bag NEUROLOGIC: Alert and oriented. Cranial nerves II through XII grossly intact. ASSESSMENT: 1. Diverticular abscess status post computed tomography scan guided drainage 2. History of bladder cancer followed by oncology PLAN: -Continue IV antibiotics Flagyl and Zosyn -Consult infectious disease -Continue regular diet -Continue DVT prophylaxis Lovenox Physician Costumed Character note has been reviewed by physician. Signing provider agrees with the documented findings, assessment, and plan of care. Objective - Vital Signs Vital signs: Vital Signs Temp 96.4 F L 01/16/20 08:00 Pulse 107 H 01/16/20 08:00 Resp 17 01/16/20 03:59 BP 141/67 01/16/20 08:00 Pulse Ox 98 01/16/20 08:00 Intake & Output 01/15/20 01/16/20 01/16/20 18:59 06:59 18:59 Intake Total 1140 480 410 Output Total 855 1000 Balance 285 -520 410 Weight 72.5 kg 72 kg Intake: IV 1140 Sodium Chloride 0.9% 1, 1040 000 ml @ 130 mls/hr IV . Q7H42M [facility] Rx#:[id number] metroNIDAZOLE-NS PMX 500 100 mg In Saline 1 100ml.bag @ 100 mls/hr IVPB Q8HR [facility] Rx#:[id number] Intake, IV Titration 360 Amount Piperacillin-Tazobactam 3 100 .375 gm In Sodium Chloride 0.9% 100 ml @ 25 mls/hr IVPB Q8H [facility] Rx#: [id number] Sodium Chloride 0.9% 1, 260 000 ml @ 130 mls/hr IV . Q7H42M [facility] Rx#:[id number] Oral 480 50 Output: Drainage 55 100 Right Lower Abdomen 55 100 Urine 700 900 Emesis 100 Other: Voiding Method Indwelling Catheter Indwelling Catheter Indwelling Catheter # Bowel Movements 1 1 - Labs CBC & Chem 7: 01/16/20 05:57 01/16/20 05:57 Labs: Abnormal Lab Results - Last 24 Hours (Table) 01/13/20 01/15/20 01/15/20 Range/Units 13:59 16:26 20:15 WBC (3.8-10.6) k/uL RBC (4.30-5.90) m/uL Hgb (13.0-17.5) gm/dL Hct (39.0-53.0) % MCHC (31.0-37.0) g/dL Neutrophils # (1.3-7.7) k/uL Chloride (98-107) mmol/L Carbon Dioxide (22-30) mmol/L BUN (9-20) mg/dL Creatinine (0.66-1.25) mg/dL Glucose (74-99) mg/dL POC Glucose (mg/dL) 172 H 293 H (75-99) mg/dL Calcium (8.4-10.2) mg/dL AST (17-59) U/L Total Protein (6.3-8.2) g/dL Albumin (3.5-5.0) g/dL Crossmatch See Detail 01/16/20 01/16/20 01/16/20 Range/Units 05:57 05:57 06:10 WBC 12.1 H (3.8-10.6) k/uL RBC 2.58 L (4.30-5.90) m/uL Hgb 7.0 L D (13.0-17.5) gm/dL Hct 23.4 L (39.0-53.0) % MCHC 29.8 L (31.0-37.0) g/dL Neutrophils # 10.2 H (1.3-7.7) k/uL Chloride 112 H (98-107) mmol/L Carbon Dioxide 20 L (22-30) mmol/L BUN 31 H (9-20) mg/dL Creatinine 1.53 H (0.66-1.25) mg/dL Glucose 199 H (74-99) mg/dL POC Glucose (mg/dL) 233 H (75-99) mg/dL Calcium 7.8 L (8.4-10.2) mg/dL AST 15 L (17-59) U/L Total Protein 4.6 L (6.3-8.2) g/dL Albumin 2.2 L (3.5-5.0) g/dL Crossmatch 01/16/20 Range/Units 11:55 WBC (3.8-10.6) k/uL RBC (4.30-5.90) m/uL Hgb (13.0-17.5) gm/dL Hct (39.0-53.0) % MCHC (31.0-37.0) g/dL Neutrophils # (1.3-7.7) k/uL Chloride (98-107) mmol/L Carbon Dioxide (22-30) mmol/L BUN (9-20) mg/dL Creatinine (0.66-1.25) mg/dL Glucose (74-99) mg/dL POC Glucose (mg/dL) 248 H (75-99) mg/dL Calcium (8.4-10.2) mg/dL AST (17-59) U/L Total Protein (6.3-8.2) g/dL Albumin (3.5-5.0) g/dL Crossmatch Microbiology - Last 24 Hours (Table) 01/14/20 18:16 Blood Culture - Preliminary Blood No Growth after 24 hours 01/14/20 14:50 Acid Fast Bacilli Smear - Final Aspirate Acid Fast Bacilli Culture - Preliminary 01/14/20 14:50 Gram Stain - Preliminary Aspirate Body Fluid Culture - Preliminary Gram Neg Bacilli 01/12/20 11:59 Blood Culture - Preliminary Blood No Growth after 72 hours
[2020-01-16 13:35] LABS: Reticulocyte % 1.5 % (0.5-2.0)
--- NOTE | 2020-01-16 15:35 | PN ---
PROGRESS NOTE The patient is seen for followup for acute kidney injury on top of chronic kidney disease. His renal function is currently improved. Patient is maintained on IV fluids. He has an intraabdominal abscess and has a draining catheter. On examination today, blood pressure was 141/67, heart rate 107 per minute, patient is afebrile.. Examination of the heart S1, S2. Examination of the lungs, bilateral breath sounds are heard. Abdomen is soft. There is tenderness noted in the mid abdomen. Examination of lower extremities shows no evidence of edema. RADIO ENGINEER exam grossly intact. Labs show sodium 139, potassium 3.9, chloride 112, CO2 is 20, BUN 31, creatinine 1.53, hemoglobin 7.0 g/dL. ASSESSMENT: 1. Acute kidney injury prerenal with a component of acute tubular necrosis currently improved continue with IV fluids. 2. Intraabdominal abscess, currently with a surgical drain. 3. History of invasive bladder cancer with invasion all the way into the colon. No plans for surgery at this point. Patient has been evaluated at [facility]. 4. History of acute kidney injury on last admission with creatinine peaking at about 4 mg/dL. 5. 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 PLAN: Continue with antibiotics. I will decrease the fluids by tomorrow and continue with the indwelling Landin catheter as well. MMODL / IJN: [id number] /
[2020-01-16 17:49] LABS: Glucose,Whole Blood 298 mg/dL (75-99)
[2020-01-16 20:04] LABS: Glucose,Whole Blood 267 mg/dL (75-99)
[2020-01-16] MEDS: CLOPIDOGREL 75 MG TAB PO SCH (20:11)
[2020-01-16 22:53] LABS: Ferritin 693.2 ng/mL (22.0-322.0)
--- NOTE | 2020-01-17 00:53 | PN ---
PROGRESS NOTE DATE OF SERVICE: 01/16/2020 REASON FOR FOLLOWUP: Diverticular abscess. INTERVAL HISTORY: The patient is currently afebrile. Patient is breathing comfortably. The patient denies having any chest pain or shortness of breath or cough. He did have an episode of vomiting and significant diarrhea. PHYSICAL EXAMINATION: Blood pressure 125/60 with a pulse of 96, temperature 97.2. He is 97% on room air. General description is an elderly male lying in bed in no distress. RESPIRATORY SYSTEM: Unlabored breathing with decreased breath sounds in the bases, no wheeze. HEART: S1, S2. Regular rate and rhythm. ABDOMEN: Soft, no tenderness. EXTREMITIES: No edema of feet. LABS: Hemoglobin 7, white count 12.1, BUN of 31, creatinine 1.53. Abdominal cultures with gram-negative bacilli. DIAGNOSTIC IMPRESSION AND PLAN: Patient with abdominal abscess status post CT-guided drainage with concern for possible diverticular in origin. Abdominal culture with gram-negative bacilli. The patient is covered with Zosyn to continue adjusting antibiotic further based on the culture report. Continue with supportive care. MMODL / IJN: [id number] /
[2020-01-17 01:08] LABS: % Iron Saturation 2.81 (15.00-50.00)
[2020-01-17] MEDS: SODIUM CHLORIDE 0.9% 1,000 ML IV SCH ×3 (01:25→16:14)
[2020-01-17] MEDS: PIPERACILLIN-TAZOBACTAM 3.375 GM in SODIUM CHLORIDE 0.9% 100 ML IVPB SCH ×3 (03:58→20:23)
[2020-01-17] MEDS: HYDROmorphone 1 MG/ML 1 ML SYRINGE IVP PRN ×4 (05:47→21:51)
[2020-01-17] MEDS: ONDANSETRON 4 MG/2 ML VIAL IVP PRN (05:47)
[2020-01-17 06:09] LABS: Glucose,Whole Blood 201 mg/dL (75-99)
[2020-01-17] MEDS: LEVOTHYROXINE 50 MCG TAB PO SCH (06:15)
[2020-01-17 06:29] LABS: Basophils % (A) 0 %; Eosinophils # (A) 0.2 k/uL (0-0.7); Eosinophils % (A) 2 %; HCT 28.1 % (39.0-53.0); HGB 8.4 gm/dL (13.0-17.5); Hypochromasia Marked; Lymphocytes # (A) 1.1 k/uL (1.0-4.8); Lymphocytes % (A) 8 %; MCH 27.1 pg (25.0-35.0); MCHC 29.9 g/dL (31.0-37.0); MCV 90.8 fL (80.0-100.0); Mean Platelet Volume 7.2; Monocytes # (A) 0.5 k/uL (0-1.0); Monocytes % (A) 4 %; Neutrophils # (A) 10.6 k/uL (1.3-7.7); Neutrophils % (A) 84 %; Platelet Count 268 k/uL (150-450); Poikilocytosis Slight; RBC 3.09 m/uL (4.30-5.90); RDW 15.2 % (11.5-15.5); WBC 12.7 k/uL (3.8-10.6)
[2020-01-17 06:40] LABS: Calcium 7.7 mg/dL (8.4-10.2); Magnesium 1.8 mg/dL (1.6-2.3); Potassium 3.9 mmol/L (3.5-5.1)
[2020-01-17] MEDS: INSULIN ASPART (NovoLOG) 100 UNIT/ML VIAL SQ SCH ×4 (07:18→20:23)
[2020-01-17] MEDS: metroNIDAZOLE-NS PMX 500 MG in SALINE 1 100ML.BAG IVPB SCH ×2 (09:04→16:11)
[2020-01-17] MEDS: ASPIRIN 81 MG PO SCH (09:04)
[2020-01-17] MEDS: ENOXAPARIN 40 MG/0.4 ML SYRINGE SQ SCH (09:04)
[2020-01-17] MEDS: ISOSORBIDE MONONITRATE ER 30 MG TAB.ER.24H PO SCH (09:04)
--- NOTE | 2020-01-17 10:08 | CDI ---
Anemia is secondary to acute blood loss as expected from the procedure superimposed on Anemia of Chronic Disease Documentation Clarification Form Date: 01/17/2020 09:57:08 AM From: Bela Lopez RN, CCDS Admit Date: 01/12/2020 01:45:00 PM Patient Name: Edwin Sorensen Visit Number: [id number] ATTENTION: The Clinical Documentation Specialists (CDI) and [facility] Coding Staff appreciate your assistance in clarifying documentation. Please respond to the clarification below the line at the bottom and electronically sign. The CDI & [facility] Coding staff will review the response and follow-up if needed. Please note: Queries are made part of the Legal Health Record. If you have any questions, please contact the author of this message via ITS. Dr. Mian Lyle Normocytic Anemia is documented in the Attending Progress Notes and requires further specificity. 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 01/15 Nephrology Progress Note: "Acute kidney injury prerenal with a component of acute tubular necrosis currently improved continue with IV fluids. 2. Intraabdominal abscess, currently with a surgical drain. 3. History of invasive bladder cancer with invasion all the way into the colon. 5. 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 Chronic blood loss anemia Iron deficiency anemia Anemia due to malignancy Nutritional anemia Anemia of chronic kidney disease Unable to determine Other, please specify (Last Form Revision: July 2019) MTDD
--- NOTE | 2020-01-17 11:05 | P.PN ---
Subjective Progress Note Date: 01/17/20 No new complaints. Reports improvement in appetite. Continues to report weakness overall. Nausea has improved. Drain with murky becerra output, purulent. Objective - Vital Signs Vital signs: Vital Signs Temp 97.7 F 01/17/20 09:00 Pulse 97 01/17/20 09:00 Resp 16 01/17/20 09:00 BP 164/74 01/17/20 09:00 Pulse Ox 97 01/17/20 09:00 Intake & Output 01/16/20 01/17/20 01/17/20 18:59 06:59 18:59 Intake Total 1680 120 120 Output Total 800 830 Balance 880 -710 120 Weight 69.9 kg Intake: Intake, IV Titration 360 Amount Piperacillin-Tazobactam 3 100 .375 gm In Sodium Chloride 0.9% 100 ml @ 25 mls/hr IVPB Q8H [facility] Rx#: [id number] Sodium Chloride 0.9% 1, 260 000 ml @ 130 mls/hr IV . Q7H42M [facility] Rx#:[id number] Oral 1010 120 120 Blood Product 310 Rc As-3 Unit 310 [id number] Output: Drainage 30 Right Lower Abdomen 30 Urine 800 800 Other: Voiding Method Indwelling Catheter Indwelling Catheter Indwelling Catheter # Bowel Movements 3 2 # Emeses 1 - Exam Gen: awake, alert HEENT: normocephalic, atraumatic, good hearing acuity, dry mucous membranes Resp: CTAB, good air exchange, no accessory muscle use, no wheezes, crackles, rhonchi CVS: good distal perfusion x 4, RRR, no murmurs, clicks, gallops GI: distended, TTP, abdominal drain in place : no SPT, no CVAT, skelton catheter not present MSK: no pitting edema, no clubbing Neuro: non-focal, no sensory deficits, appropriate tone Psych: cooperative, euthymic mood - Labs CBC & Chem 7: 01/17/20 05:55 01/17/20 05:55 Labs: Abnormal Lab Results - Last 24 Hours (Table) 01/13/20 01/16/20 01/16/20 Range/Units 13:59 05:57 11:55 WBC (3.8-10.6) k/uL RBC (4.30-5.90) m/uL Hgb (13.0-17.5) gm/dL Hct (39.0-53.0) % MCHC (31.0-37.0) g/dL Neutrophils # (1.3-7.7) k/uL Chloride (98-107) mmol/L Carbon Dioxide (22-30) mmol/L BUN (9-20) mg/dL Creatinine (0.66-1.25) mg/dL Glucose (74-99) mg/dL POC Glucose (mg/dL) 248 H (75-99) mg/dL Calcium (8.4-10.2) mg/dL Iron 5 L (65-175) ug/dL TIBC 178 L (228-460) ug/dL % Saturation 2.81 L (15.00-50.00) Ferritin 693.2 H (22.0-322.0) ng/mL Vitamin B12 1258.0 H (200.0-944.0) pg/mL Crossmatch See Detail 01/16/20 01/16/20 01/17/20 Range/Units 17:25 20:02 05:55 WBC 12.7 H (3.8-10.6) k/uL RBC 3.09 L (4.30-5.90) m/uL Hgb 8.4 L (13.0-17.5) gm/dL Hct 28.1 L (39.0-53.0) % MCHC 29.9 L (31.0-37.0) g/dL Neutrophils # 10.6 H (1.3-7.7) k/uL Chloride (98-107) mmol/L Carbon Dioxide (22-30) mmol/L BUN (9-20) mg/dL Creatinine (0.66-1.25) mg/dL Glucose (74-99) mg/dL POC Glucose (mg/dL) 298 H 267 H (75-99) mg/dL Calcium (8.4-10.2) mg/dL Iron (65-175) ug/dL TIBC (228-460) ug/dL % Saturation (15.00-50.00) Ferritin (22.0-322.0) ng/mL Vitamin B12 (200.0-944.0) pg/mL Crossmatch 01/17/20 01/17/20 Range/Units 05:55 06:07 WBC (3.8-10.6) k/uL RBC (4.30-5.90) m/uL Hgb (13.0-17.5) gm/dL Hct (39.0-53.0) % MCHC (31.0-37.0) g/dL Neutrophils # (1.3-7.7) k/uL Chloride 113 H (98-107) mmol/L Carbon Dioxide 18 L (22-30) mmol/L BUN 21 H (9-20) mg/dL Creatinine 1.29 H (0.66-1.25) mg/dL Glucose 171 H (74-99) mg/dL POC Glucose (mg/dL) 201 H (75-99) mg/dL Calcium 7.7 L (8.4-10.2) mg/dL Iron (65-175) ug/dL TIBC (228-460) ug/dL % Saturation (15.00-50.00) Ferritin (22.0-322.0) ng/mL Vitamin B12 (200.0-944.0) pg/mL Crossmatch Microbiology - Last 24 Hours (Table) 01/14/20 14:50 Gram Stain - Preliminary Aspirate Body Fluid Culture - Preliminary Proteus mirabilis Group D Enterococcus Alpha Hemolytic Streptococcus 01/14/20 18:16 Blood Culture - Preliminary Blood No Growth after 48 hours 01/12/20 11:59 Blood Culture - Preliminary Blood No Growth after 96 hours Assessment and Plan Assessment: Sepsis due to diverticular abscess Normocytic anemia Elevated d-dimer Hyperkalemia Acute kidney injury Lactic acidosis Diabetes mellitus CAD Hypertension Hypothyroidism Bladder and bowel cancer Patient meets sepsis criteria. CT abdomen and pelvis shows diverticular absce ss. Plans: Start Flagyl and Zosyn IV. Zofran as needed for nausea or vomiting. Start normal saline at 130 mL per hour. Tylenol as needed for fever. 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 Telemetry monitoring. Follow blood culture - NGTD. Follow surgery recommendations. S/p IR drainage of 250cc purulent fluid. Follow up microbiology = growing GNR. Hemoglobin 11.4. Likely related to malignancy. Plans: Repeat CBC tomorrow morning. Transfuse if hemoglobin less than 7. D-dimer 1.62. Likely related to malignancy. Plans: Low likelihood of PE. V/Q scan shows low probability PE. Continue to monitor. Potassium 5.2. Likely due to dehydration. Plans: Hydration as above. Telemetry monitoring. Repeat BMP tomorrow morning. Hold losartan. Creatinine 1.7. Likely due to dehydration. Plans: Hydration as above. Avoid nephrotoxins. Repeat BMP tomorrow morning. Hold losartan. Lactic acid 3.5. Likely related to underlying infection. Plans: Hydration as above. Repeat until negative. Voham-mp-mwlb glucose 248. Plans: Insulin sliding scale. Regular Accu-Cheks. Hypoglycemic precautions. Plans: Continue aspirin and Plavix. Plans: Continue Imdur. Plans: Continue Synthroid. Plans: Follow oncology consultation. DVT prophylaxis: [Lovenox] Discussed with: [Patient] Anticipated discharge: [1-2 days] Anticipated discharge place: SNF, patient is almost medically ready to go to rehab, once drain output slows, can pull, then convert to oral antibiotics and discharge.
[2020-01-17 12:44] LABS: Glucose,Whole Blood 296 mg/dL (75-99)
--- NOTE | 2020-01-17 12:49 | P.PN ---
Subjective Progress Note Date: 01/17/20 CHIEF COMPLAINT: Diverticular abscess HISTORY OF PRESENT ILLNESS: Patient seen and examined with Dr. Garcia. Patient is status post CT guided drainage of the diverticular abscess. Patient had 240 mL of purulent fluid aspirated from the abscess. He has drainage tube in place and has pus-type fluid. Still having abdominal pain, but improving. Denies any nausea or vomiting. Afebrile. White count up at 12.7. Hemoglobin up from 7- 8.4 after blood transfusion. H No active bleeding noted. He is on Flagyl and IV Zosyn. Path report from abscess fluid was negative for malignant cells. Fluid culture growing Proteus mirabilis, group D enterococcus, alpha hemolytic streptococcus. PHYSICAL EXAM: VITAL SIGNS: Reviewed. GENERAL: Well-developed in no acute distress. HEENT: No sclera icterus. Extraocular movements grossly intact. Moist buccal mucosa. Head is atraumatic, normocephalic. ABDOMEN: Soft. Nondistended. Tenderness left lower quadrant. Drainage tube present with pus in bag NEUROLOGIC: Alert and oriented. Cranial nerves II through XII grossly intact. ASSESSMENT: 1. Diverticular abscess status post computed tomography scan guided drainage 2. History of bladder cancer followed by oncology PLAN: -Continue IV antibiotics Flagyl and Zosyn -infectious disease following -Continue regular diet -Continue DVT prophylaxis Lovenox -Possible discharge on Wednesday to [facility] Physician Scrap Crane Operator note has been reviewed by physician. Signing provider agrees with the documented findings, assessment, and plan of care. Objective - Vital Signs Vital signs: Vital Signs Temp 97.7 F 01/17/20 09:00 Pulse 94 01/17/20 11:45 Resp 16 01/17/20 11:45 BP 130/65 01/17/20 11:44 Pulse Ox 99 01/17/20 11:44 Intake & Output 01/16/20 01/17/20 01/17/20 18:59 06:59 18:59 Intake Total 3023 804 0889 Output Total 800 830 Balance 880 -710 1360 Weight 69.9 kg Intake: IV 100 metroNIDAZOLE-NS PMX 500 100 mg In Saline 1 100ml.bag @ 100 mls/hr IVPB Q8HR [facility] Rx#:[id number] Intake, IV Titration 360 1140 Amount Piperacillin-Tazobactam 3 100 100 .375 gm In Sodium Chloride 0.9% 100 ml @ 25 mls/hr IVPB Q8H [facility] Rx#: [id number] Sodium Chloride 0.9% 1, 260 1040 000 ml @ 130 mls/hr IV . Q7H42M [facility] Rx#:[id number] Oral 1010 120 120 Blood Product 310 Rc As-3 Unit 310 [id number] Output: Drainage 30 Right Lower Abdomen 30 Urine 800 800 Other: Voiding Method Indwelling Catheter Indwelling Catheter Indwelling Catheter # Bowel Movements 3 2 # Emeses 1 - Labs CBC & Chem 7: 01/17/20 05:55 01/17/20 05:55 Labs: Abnormal Lab Results - Last 24 Hours (Table) 01/13/20 01/16/20 01/16/20 Range/Units 13:59 05:57 17:25 WBC (3.8-10.6) k/uL RBC (4.30-5.90) m/uL Hgb (13.0-17.5) gm/dL Hct (39.0-53.0) % MCHC (31.0-37.0) g/dL Neutrophils # (1.3-7.7) k/uL Chloride (98-107) mmol/L Carbon Dioxide (22-30) mmol/L BUN (9-20) mg/dL Creatinine (0.66-1.25) mg/dL Glucose (74-99) mg/dL POC Glucose (mg/dL) 298 H (75-99) mg/dL Calcium (8.4-10.2) mg/dL Iron 5 L (65-175) ug/dL TIBC 178 L (228-460) ug/dL % Saturation 2.81 L (15.00-50.00) Ferritin 693.2 H (22.0-322.0) ng/mL Vitamin B12 1258.0 H (200.0-944.0) pg/mL Crossmatch See Detail 01/16/20 01/17/20 01/17/20 Range/Units 20:02 05:55 05:55 WBC 12.7 H (3.8-10.6) k/uL RBC 3.09 L (4.30-5.90) m/uL Hgb 8.4 L (13.0-17.5) gm/dL Hct 28.1 L (39.0-53.0) % MCHC 29.9 L (31.0-37.0) g/dL Neutrophils # 10.6 H (1.3-7.7) k/uL Chloride 113 H (98-107) mmol/L Carbon Dioxide 18 L (22-30) mmol/L BUN 21 H (9-20) mg/dL Creatinine 1.29 H (0.66-1.25) mg/dL Glucose 171 H (74-99) mg/dL POC Glucose (mg/dL) 267 H (75-99) mg/dL Calcium 7.7 L (8.4-10.2) mg/dL Iron (65-175) ug/dL TIBC (228-460) ug/dL % Saturation (15.00-50.00) Ferritin (22.0-322.0) ng/mL Vitamin B12 (200.0-944.0) pg/mL Crossmatch 01/17/20 01/17/20 Range/Units 06:07 12:38 WBC (3.8-10.6) k/uL RBC (4.30-5.90) m/uL Hgb (13.0-17.5) gm/dL Hct (39.0-53.0) % MCHC (31.0-37.0) g/dL Neutrophils # (1.3-7.7) k/uL Chloride (98-107) mmol/L Carbon Dioxide (22-30) mmol/L BUN (9-20) mg/dL Creatinine (0.66-1.25) mg/dL Glucose (74-99) mg/dL POC Glucose (mg/dL) 201 H 296 H (75-99) mg/dL Calcium (8.4-10.2) mg/dL Iron (65-175) ug/dL TIBC (228-460) ug/dL % Saturation (15.00-50.00) Ferritin (22.0-322.0) ng/mL Vitamin B12 (200.0-944.0) pg/mL Crossmatch Microbiology - Last 24 Hours (Table) 01/14/20 14:50 Gram Stain - Preliminary Aspirate Body Fluid Culture - Preliminary Proteus mirabilis Group D Enterococcus Alpha Hemolytic Streptococcus 01/14/20 18:16 Blood Culture - Preliminary Blood No Growth after 48 hours 01/12/20 11:59 Blood Culture - Preliminary Blood No Growth after 96 hours
--- NOTE | 2020-01-17 14:56 | P.PN ---
Subjective Progress Note Date: 01/17/20 Principal diagnosis: Fever/Abscess No acute event, Path resulted from Abscess and negative for malignant cells. Cultures positive for Proteus mirabilis, group D enterococcus, alpha hemolytic streptococcus. Objective - Vital Signs Vital signs: Vital Signs Temp 97.7 F 01/17/20 09:00 Pulse 94 01/17/20 11:45 Resp 16 01/17/20 11:45 BP 130/65 01/17/20 11:44 Pulse Ox 99 01/17/20 11:44 Intake & Output 01/16/20 01/17/20 01/17/20 18:59 06:59 18:59 Intake Total 3648 971 3521 Output Total 800 830 Balance 880 -710 1360 Weight 69.9 kg 69.9 kg Intake: IV 100 metroNIDAZOLE-NS PMX 500 100 mg In Saline 1 100ml.bag @ 100 mls/hr IVPB Q8HR [facility] Rx#:[id number] Intake, IV Titration 360 1140 Amount Piperacillin-Tazobactam 3 100 100 .375 gm In Sodium Chloride 0.9% 100 ml @ 25 mls/hr IVPB Q8H [facility] Rx#: [id number] Sodium Chloride 0.9% 1, 260 1040 000 ml @ 130 mls/hr IV . Q7H42M [facility] Rx#:[id number] Oral 1010 120 120 Blood Product 310 Rc As-3 Unit 310 [id number] Output: Drainage 30 Right Lower Abdomen 30 Urine 800 800 Other: Voiding Method Indwelling Catheter Indwelling Catheter Indwelling Catheter # Bowel Movements 3 2 # Emeses 1 - Exam - Constitutional General appearance: mild distress - EENT Eyes: EOMI, PERRLA ENT: hearing grossly normal, normal oropharynx - Neck Neck: no lymphadenopathy Thyroid: bilateral: normal size - Respiratory Respiratory: bilateral: diminished - Cardiovascular Rhythm: regular Heart sounds: normal: S1, S2 - Gastrointestinal With abdominal discomfort on palpation in the lower abdomen somewhat diffuse. No obvious rebound General gastrointestinal: normal bowel sounds, soft - Integumentary Integumentary: normal - Neurologic Neurologic: CNII-XII intact - Musculoskeletal Musculoskeletal: generalized weakness, strength equal bilaterally - Psychiatric Lethargic, responses are slow but approp - Labs CBC & Chem 7: 01/17/20 05:55 01/17/20 05:55 Labs: Abnormal Lab Results - Last 24 Hours (Table) 01/13/20 01/16/20 01/16/20 Range/Units 13:59 05:57 17:25 WBC (3.8-10.6) k/uL RBC (4.30-5.90) m/uL Hgb (13.0-17.5) gm/dL Hct (39.0-53.0) % MCHC (31.0-37.0) g/dL Neutrophils # (1.3-7.7) k/uL Chloride (98-107) mmol/L Carbon Dioxide (22-30) mmol/L BUN (9-20) mg/dL Creatinine (0.66-1.25) mg/dL Glucose (74-99) mg/dL POC Glucose (mg/dL) 298 H (75-99) mg/dL Calcium (8.4-10.2) mg/dL Iron 5 L (65-175) ug/dL TIBC 178 L (228-460) ug/dL % Saturation 2.81 L (15.00-50.00) Ferritin 693.2 H (22.0-322.0) ng/mL Vitamin B12 1258.0 H (200.0-944.0) pg/mL Crossmatch See Detail 01/16/20 01/17/20 01/17/20 Range/Units 20:02 05:55 05:55 WBC 12.7 H (3.8-10.6) k/uL RBC 3.09 L (4.30-5.90) m/uL Hgb 8.4 L (13.0-17.5) gm/dL Hct 28.1 L (39.0-53.0) % MCHC 29.9 L (31.0-37.0) g/dL Neutrophils # 10.6 H (1.3-7.7) k/uL Chloride 113 H (98-107) mmol/L Carbon Dioxide 18 L (22-30) mmol/L BUN 21 H (9-20) mg/dL Creatinine 1.29 H (0.66-1.25) mg/dL Glucose 171 H (74-99) mg/dL POC Glucose (mg/dL) 267 H (75-99) mg/dL Calcium 7.7 L (8.4-10.2) mg/dL Iron (65-175) ug/dL TIBC (228-460) ug/dL % Saturation (15.00-50.00) Ferritin (22.0-322.0) ng/mL Vitamin B12 (200.0-944.0) pg/mL Crossmatch 01/17/20 01/17/20 Range/Units 06:07 12:38 WBC (3.8-10.6) k/uL RBC (4.30-5.90) m/uL Hgb (13.0-17.5) gm/dL Hct (39.0-53.0) % MCHC (31.0-37.0) g/dL Neutrophils # (1.3-7.7) k/uL Chloride (98-107) mmol/L Carbon Dioxide (22-30) mmol/L BUN (9-20) mg/dL Creatinine (0.66-1.25) mg/dL Glucose (74-99) mg/dL POC Glucose (mg/dL) 201 H 296 H (75-99) mg/dL Calcium (8.4-10.2) mg/dL Iron (65-175) ug/dL TIBC (228-460) ug/dL % Saturation (15.00-50.00) Ferritin (22.0-322.0) ng/mL Vitamin B12 (200.0-944.0) pg/mL Crossmatch Microbiology - Last 24 Hours (Table) 01/12/20 11:59 Blood Culture - Preliminary Blood No Growth after 120 hours 01/14/20 14:50 Gram Stain - Preliminary Aspirate Body Fluid Culture - Preliminary Proteus mirabilis Group D Enterococcus Alpha Hemolytic Streptococcus 01/14/20 18:16 Blood Culture - Preliminary Blood No Growth after 48 hours Assessment and Plan Plan: VQ scan report reviewed Chest x-ray: report reviewed CT scan - abdomen: report reviewed CT scan - pelvis: report reviewed Assessment and Plan SIRS (systemic inflammatory response syndrome) - Originally evaluated in the office with noted low blood pressure, elevated heart rate and elevated respiratory rate. He was therefore sent in to the emergency room and has been admitted with antibiotics, intervention, and monitoring. - A VQ scan and cardiac ischemia workup were negative. - CT of the abdomen and pelvis did show a fluid collection adjacent to the sigmoid colon. He is now status post drainage of abscess - Last fever 01/13 103.2F. Afebrile since. Repeat cultures negative from 01/13 - The patient had a recent surgical procedure on 12/25/19 at [facility]. - Gram Stain body fluid culture with Gran Negative Bacilli. 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 plus considering the average post operative timeframe of 3-4 weeks wh en there is no obvious complications present. - In addition to his current acute situation other variables that must be considered are patient's age, multiple medical problems, and underlying renal insufficiency which may significantly increased risk of adverse events with chemotherapy. - At this time the plan is to set up a family meeting once the patient is more stable to discuss options. - Abscess negative for malignant cells Dehydration Normocytic Anemia: - Improved, Hg 8.4 today - Repeat anemia panel - Possible secondary to recent procedure and dilution - transfuse less than 7 Acute on Chronic Renal Insufficiency: - Stable - Due to ongoing nausea, vomiting, and decreased oral intake. - Continued IV hydration. - Continue to monitor renal function Weakness and decrease overall performance: - Continue to work with PT//OT - Will need to increase PS and resolve above issues prior to starting systemic treatment. Continue aggressive supportive care CBC in am Transfuse less than 7
--- NOTE | 2020-01-17 15:33 | PN ---
PROGRESS NOTE The patient is seen for follow up for acute kidney injury on top of chronic kidney disease. He is currently doing well. Patient is awake, comfortable. He states his abdominal pain is better. Urine output through the Landin catheter. Renal function has improved. PHYSICAL EXAMINATION: Blood pressure is 130/65, heart rate 94 per minute. He is afebrile. Examination of the heart S1, S2. Examination of the lungs, bilateral breath sounds are heard. Abdomen is soft with tenderness in the mid abdomen. Exam of lower extremities shows no edema. PROPERTY DISPOSAL MANAGER exam grossly intact. LABS: Show sodium 138, potassium 3.9, chloride 113, CO2 is 18, BUN 21, creatinine 1.29, hemoglobin 8.4 g/dL. ASSESSMENT: 1. Acute kidney injury prerenal/acute tubular necrosis currently improving. Patient is maintained on IV fluids. However, I am not sure if he is getting the IV fluids. I will decrease the rate to about 60 mL an hour. He is encouraged to increase his oral intake. 2. Intraabdominal abscess with a drain. 3. History of invasive bladder cancer with involvement of the colon as well. No plans for surgical intervention at this point. 4. Chronic kidney disease, stage 3B to 4 with baseline creatinine 1.6-1.8 previously. However, creatinine is currently improved further. PLAN: Decrease IV fluids. Encourage increased oral intake. Continue to avoid nephrotoxic agents. MMODL / IJN: [id number] /
[2020-01-17 16:52] LABS: Glucose,Whole Blood 263 mg/dL (75-99)
--- NOTE | 2020-01-17 17:37 | PN ---
PROGRESS NOTE DATE OF SERVICE: 01/17/2020 REASON FOR FOLLOWUP: Abdominal abscess. INTERVAL HISTORY: The patient is currently afebrile, has been breathing comfortably. The patient denies having any chest pain or shortness of breath or cough. No nausea, vomiting, abdominal pain or any worsening diarrhea. PHYSICAL EXAMINATION: Blood pressure 132/65 with a pulse of 94, temperature is 97.7. He is 99% on room air. General description is an elderly male lying in bed in no distress. RESPIRATORY SYSTEM: Unlabored breathing with decreased breath sounds at the base. No wheeze. HEART: S1, S2. Regular rate and rhythm. ABDOMEN: Soft. No tenderness. LABS: Hemoglobin 8.4, white count 12.7, BUN of 21, creatinine 1.29. DIAGNOSTIC IMPRESSION AND PLAN: Patient with abdominal abscess. Culture now showing Proteus mirabilis, strep and group D Enterococcus with sensitivities pathogens pending. Patient is covered with Zosyn. He will benefit from a midline and outpatient antibiotic on discharge, as the patient is going to a care home anyway. Continue supportive care. MMODL / IJN: [id number] /
[2020-01-17 19:53] LABS: Glucose,Whole Blood 240 mg/dL (75-99)
[2020-01-17] MEDS: CLOPIDOGREL 75 MG TAB PO SCH (20:23)
[2020-01-18] MEDS: metroNIDAZOLE-NS PMX 500 MG in SALINE 1 100ML.BAG IVPB SCH ×3 (00:36→17:57)
[2020-01-18] MEDS: HYDROmorphone 1 MG/ML 1 ML SYRINGE IVP PRN ×2 (02:39→22:11)
[2020-01-18] MEDS: PIPERACILLIN-TAZOBACTAM 3.375 GM in SODIUM CHLORIDE 0.9% 100 ML IVPB SCH ×3 (04:07→19:28)
[2020-01-18 06:17] LABS: Glucose,Whole Blood 294 mg/dL (75-99)
[2020-01-18] MEDS: INSULIN ASPART (NovoLOG) 100 UNIT/ML VIAL SQ SCH ×4 (06:23→21:24)
[2020-01-18] MEDS: LEVOTHYROXINE 50 MCG TAB PO SCH (06:23)
[2020-01-18] MEDS: ASPIRIN 81 MG PO SCH (08:58)
[2020-01-18] MEDS: ISOSORBIDE MONONITRATE ER 30 MG TAB.ER.24H PO SCH (08:58)
[2020-01-18] MEDS: ENOXAPARIN 40 MG/0.4 ML SYRINGE SQ SCH (08:58)
[2020-01-18 09:05] LABS: Basophils % (A) 0 %; Eosinophils # (A) 0.2 k/uL (0-0.7); Eosinophils % (A) 1 %; HCT 27.5 % (39.0-53.0); HGB 8.5 gm/dL (13.0-17.5); Hypochromasia Marked; Lymphocytes # (A) 0.9 k/uL (1.0-4.8); Lymphocytes % (A) 7 %; MCH 27.6 pg (25.0-35.0); MCHC 30.7 g/dL (31.0-37.0); MCV 89.7 fL (80.0-100.0); Mean Platelet Volume 7.3; Monocytes # (A) 0.5 k/uL (0-1.0); Monocytes % (A) 4 %; Neutrophils # (A) 10.2 k/uL (1.3-7.7); Neutrophils % (A) 85 %; Platelet Count 275 k/uL (150-450); Poikilocytosis Slight; RBC 3.07 m/uL (4.30-5.90); RDW 15.8 % (11.5-15.5)
[2020-01-18 09:20] LABS: Calcium 7.9 mg/dL (8.4-10.2)
--- NOTE | 2020-01-18 10:55 | P.PN ---
Subjective Progress Note Date: 01/18/20 Pt is very motivated today to ambulate out of the bed, appetite has increased, no further episodes of nausea/vomiting. Objective - Vital Signs Vital signs: Vital Signs Temp 97.8 F 01/18/20 08:00 Pulse 93 01/18/20 08:00 Resp 20 01/18/20 08:00 BP 135/71 01/18/20 08:00 Pulse Ox 98 01/18/20 08:00 Intake & Output 01/17/20 01/18/20 01/18/20 18:59 06:59 18:59 Intake Total 1480 Output Total 468 1420 Balance 1012 -1420 Weight 69.9 kg 72.5 kg Intake: IV 100 metroNIDAZOLE-NS PMX 500 100 mg In Saline 1 100ml.bag @ 100 mls/hr IVPB Q8HR [facility] Rx#:[id number] Intake, IV Titration 1140 Amount Piperacillin-Tazobactam 3 100 .375 gm In Sodium Chloride 0.9% 100 ml @ 25 mls/hr IVPB Q8H [facility] Rx#: [id number] Sodium Chloride 0.9% 1, 1040 000 ml @ 60 mls/hr IV . [id number] [facility] Rx#:[id number] Oral 240 Output: Drainage 18 20 Right Lower Abdomen 18 20 Urine 450 1400 Other: Voiding Method Indwelling Catheter Indwelling Catheter # Bowel Movements 1 - Exam Gen: awake, alert HEENT: normocephalic, atraumatic, good hearing acuity, dry mucous membranes Resp: CTAB, good air exchange, no accessory muscle use, no wheezes, crackles, rhonchi CVS: good distal perfusion x 4, RRR, no murmurs, clicks, gallops GI: distended, TTP, abdominal drain in place : no SPT, no CVAT, skelton catheter not present MSK: no pitting edema, no clubbing Neuro: non-focal, no sensory deficits, appropriate tone Psych: cooperative, euthymic mood - Labs CBC & Chem 7: 01/18/20 08:42 01/18/20 08:42 Labs: Abnormal Lab Results - Last 24 Hours (Table) 01/16/20 01/17/20 01/17/20 Range/Units 05:57 12:38 16:50 WBC (3.8-10.6) k/uL RBC (4.30-5.90) m/uL Hgb (13.0-17.5) gm/dL Hct (39.0-53.0) % MCHC (31.0-37.0) g/dL RDW (11.5-15.5) % Neutrophils # (1.3-7.7) k/uL Lymphocytes # (1.0-4.8) k/uL Chloride (98-107) mmol/L Carbon Dioxide (22-30) mmol/L Glucose (74-99) mg/dL POC Glucose (mg/dL) 296 H 263 H (75-99) mg/dL Calcium (8.4-10.2) mg/dL Methylmalonic Acid 0.78 H (<0.40) umol/L 01/17/20 01/18/20 01/18/20 Range/Units 19:46 06:15 08:42 WBC 12.0 H (3.8-10.6) k/uL RBC 3.07 L (4.30-5.90) m/uL Hgb 8.5 L (13.0-17.5) gm/dL Hct 27.5 L (39.0-53.0) % MCHC 30.7 L (31.0-37.0) g/dL RDW 15.8 H (11.5-15.5) % Neutrophils # 10.2 H (1.3-7.7) k/uL Lymphocytes # 0.9 L (1.0-4.8) k/uL Chloride (98-107) mmol/L Carbon Dioxide (22-30) mmol/L Glucose (74-99) mg/dL POC Glucose (mg/dL) 240 H 294 H (75-99) mg/dL Calcium (8.4-10.2) mg/dL Methylmalonic Acid (<0.40) umol/L 01/18/20 Range/Units 08:42 WBC (3.8-10.6) k/uL RBC (4.30-5.90) m/uL Hgb (13.0-17.5) gm/dL Hct (39.0-53.0) % MCHC (31.0-37.0) g/dL RDW (11.5-15.5) % Neutrophils # (1.3-7.7) k/uL Lymphocytes # (1.0-4.8) k/uL Chloride 111 H (98-107) mmol/L Carbon Dioxide 21 L (22-30) mmol/L Glucose 250 H (74-99) mg/dL POC Glucose (mg/dL) (75-99) mg/dL Calcium 7.9 L (8.4-10.2) mg/dL Methylmalonic Acid (<0.40) umol/L Microbiology - Last 24 Hours (Table) 01/14/20 14:50 Gram Stain - Final Aspirate Body Fluid Culture - Final Proteus mirabilis Escherichia coli Enterococcus faecalis Alpha Hemolytic Streptococcus 01/14/20 18:16 Blood Culture - Preliminary Blood No Growth after 72 hours 01/12/20 11:59 Blood Culture - Preliminary Blood No Growth after 120 hours Assessment and Plan Assessment: Sepsis due to diverticular abscess Normocytic anemia Elevated d-dimer Hyperkalemia Acute kidney injury Lactic acidosis Diabetes mellitus CAD Hypertension Hypothyroidism Bladder and bowel cancer Patient meets sepsis criteria. CT abdomen and pelvis shows diverticular abscess. Plans: Start Flagyl and Zosyn IV. Zofran as needed for nausea or vomi ting. Start normal saline at 130 mL per hour. Tylenol as needed for fever. Pain control with morphine as needed + dilaudid TOP CUTTER (d/c'd 01/14). Telemetry monitoring. Follow blood culture - NGTD. Follow surgery recommendations. S/p IR drainage of 250cc purulent fluid. Follow up microbiology = growing polymicrobial (E coli, enterococcus, proteus, alpha-hemolytic strep). Covered with zosyn/flagyl. Hemoglobin 11.4. Likely related to malignancy. Plans: Repeat CBC tomorrow morning. Transfuse if hemoglobin less than 7. D-dimer 1.62. Likely related to malignancy. Plans: Low likelihood of PE. V/Q scan shows low probability PE. Continue to monitor. Potassium 5.2. Likely due to dehydration. Plans: Hydration as above. Telemetry monitoring. Repeat BMP tomorrow morning. Hold losartan. Creatinine 1.7. Likely due to dehydration. Plans: Hydration as above. Avoid nephrotoxins. Repeat BMP tomorrow morning. Hold losartan. Lactic acid 3.5. Likely related to underlying infection. Plans: Hydration as above. Repeat until negative. [id number] glucose 248. Plans: Insulin sliding scale. Regular Accu-Cheks. Hypoglycemic precautions. Plans: Continue aspirin and Plavix. Plans: Continue Imdur. Plans: Continue Synthroid. Plans: Follow oncology consultation. DVT prophylaxis: [Lovenox] Discussed with: [Patient] Anticipated discharge: [1-2 days] Anticipated discharge place: SNF, patient is almost medically ready to go to rehab, once drain output slows, can pull, then convert to oral antibiotics and discharge.
[2020-01-18 11:47] LABS: Glucose,Whole Blood 282 mg/dL (75-99)
[2020-01-18] MEDS: SODIUM CHLORIDE 0.9% 1,000 ML IV SCH (12:09)
--- NOTE | 2020-01-18 12:40 | P.PN ---
Subjective Progress Note Date: 01/18/20 CHIEF COMPLAINT: Diverticular abscess HISTORY OF PRESENT ILLNESS: Patient is status post CT guided drainage of the diverticular abscess. Patient had 240 mL of purulent fluid aspirated from the abscess. He has drainage tube in place and has pus-type fluid. Still having abdominal pain, but improving. Did have liquidy dark green bowel movement. Denies any nausea or vomiting. Afebrile. Hemoglobin 8.5. WBC 12 No active bleeding noted. He is on Flagyl and IV Zosyn. Path report from abscess fluid w as negative for malignant cells. Fluid culture growing Proteus mirabilis, group D enterococcus, alpha hemolytic streptococcus. PHYSICAL EXAM: VITAL SIGNS: Reviewed. GENERAL: Well-developed in no acute distress. HEENT: No sclera icterus. Extraocular movements grossly intact. Moist buccal mucosa. Head is atraumatic, normocephalic. ABDOMEN: Soft. Nondistended. Tenderness left lower quadrant. Drainage tube present with pus in bag NEUROLOGIC: Alert and oriented. Cranial nerves II through XII grossly intact. ASSESSMENT: 1. Diverticular abscess status post computed tomography scan guided drainage 2. History of bladder cancer followed by oncology PLAN: -Continue IV antibiotics Flagyl and Zosyn -infectious disease following -Continue regular diet -Continue DVT prophylaxis Lovenox -Possible discharge on Wednesday to [facility] Physician Manager Of Housekeeping note has been reviewed by physician. Signing provider agrees with the documented findings, assessment, and plan of care. Objective - Vital Signs Vital signs: Vital Signs Temp 97.8 F 01/18/20 08:00 Pulse 93 01/18/20 08:00 Resp 20 01/18/20 08:00 BP 135/71 01/18/20 08:00 Pulse Ox 98 01/18/20 08:00 Intake & Output 01/17/20 01/18/20 01/18/20 18:59 06:59 18:59 Intake Total 1480 Output Total 468 1420 Balance 1012 -1420 Weight 69.9 kg 72.5 kg Intake: IV 100 metroNIDAZOLE-NS PMX 500 100 mg In Saline 1 100ml.bag @ 100 mls/hr IVPB Q8HR [facility] Rx#:[id number] Intake, IV Titration 1140 Amount Piperacillin-Tazobactam 3 100 .375 gm In Sodium Chloride 0.9% 100 ml @ 25 mls/hr IVPB Q8H [facility] Rx#: [id number] Sodium Chloride 0.9% 1, 1040 000 ml @ 60 mls/hr IV . [id number] [facility] Rx#:[id number] Oral 240 Output: Drainage 18 20 Right Lower Abdomen 18 20 Urine 450 1400 Other: Voiding Method Indwelling Catheter Indwelling Catheter Indwelling Catheter # Bowel Movements 1 3 - Labs CBC & Chem 7: 01/18/20 08:42 01/18/20 08:42 Labs: Abnormal Lab Results - Last 24 Hours (Table) 01/16/20 01/17/20 01/17/20 Range/Units 05:57 12:38 16:50 WBC (3.8-10.6) k/uL RBC (4.30-5.90) m/uL Hgb (13.0-17.5) gm/dL Hct (39.0-53.0) % MCHC (31.0-37.0) g/dL RDW (11.5-15.5) % Neutrophils # (1.3-7.7) k/uL Lymphocytes # (1.0-4.8) k/uL Chloride (98-107) mmol/L Carbon Dioxide (22-30) mmol/L Glucose (74-99) mg/dL POC Glucose (mg/dL) 296 H 263 H (75-99) mg/dL Calcium (8.4-10.2) mg/dL Methylmalonic Acid 0.78 H (<0.40) umol/L 01/17/20 01/18/20 01/18/20 Range/Units 19:46 06:15 08:42 WBC 12.0 H (3.8-10.6) k/uL RBC 3.07 L (4.30-5.90) m/uL Hgb 8.5 L (13.0-17.5) gm/dL Hct 27.5 L (39.0-53.0) % MCHC 30.7 L (31.0-37.0) g/dL RDW 15.8 H (11.5-15.5) % Neutrophils # 10.2 H (1.3-7.7) k/uL Lymphocytes # 0.9 L (1.0-4.8) k/uL Chloride (98-107) mmol/L Carbon Dioxide (22-30) mmol/L Glucose (74-99) mg/dL POC Glucose (mg/dL) 240 H 294 H (75-99) mg/dL Calcium (8.4-10.2) mg/dL Methylmalonic Acid (<0.40) umol/L 01/18/20 01/18/20 Range/Units 08:42 11:46 WBC (3.8-10.6) k/uL RBC (4.30-5.90) m/uL Hgb (13.0-17.5) gm/dL Hct (39.0-53.0) % MCHC (31.0-37.0) g/dL RDW (11.5-15.5) % Neutrophils # (1.3-7.7) k/uL Lymphocytes # (1.0-4.8) k/uL Chloride 111 H (98-107) mmol/L Carbon Dioxide 21 L (22-30) mmol/L Glucose 250 H (74-99) mg/dL POC Glucose (mg/dL) 282 H (75-99) mg/dL Calcium 7.9 L (8.4-10.2) mg/dL Methylmalonic Acid (<0.40) umol/L Microbiology - Last 24 Hours (Table) 01/14/20 14:50 Gram Stain - Final Aspirate Body Fluid Culture - Final Proteus mirabilis Escherichia coli Enterococcus faecalis Alpha Hemolytic Streptococcus 01/14/20 18:16 Blood Culture - Preliminary Blood No Growth after 72 hours 01/12/20 11:59 Blood Culture - Preliminary Blood No Growth after 120 hours
[2020-01-18] MEDS: ACETAMINOPHEN TAB 325 MG TAB PO PRN (15:41)
--- NOTE | 2020-01-18 15:48 | P.PN ---
Subjective Progress Note Date: 01/18/20 Principal diagnosis: Fever/Abscess No acute events, blood counts stable. Afebrile. Cultures reviewed. Still weak working with PT/OT Objective - Vital Signs Vital signs: Vital Signs Temp 97.8 F 01/18/20 08:00 Pulse 93 01/18/20 08:00 Resp 20 01/18/20 08:00 BP 135/71 01/18/20 08:00 Pulse Ox 98 01/18/20 08:00 Intake & Output 01/17/20 01/18/20 01/18/20 18:59 06:59 18:59 Intake Total 1480 Output Total 468 1420 Balance 1012 -1420 Weight 69.9 kg 72.5 kg Intake: IV 100 metroNIDAZOLE-NS PMX 500 100 mg In Saline 1 100ml.bag @ 100 mls/hr IVPB Q8HR [facility] Rx#:[id number] Intake, IV Titration 1140 Amount Piperacillin-Tazobactam 3 100 .375 gm In Sodium Chloride 0.9% 100 ml @ 25 mls/hr IVPB Q8H [facility] Rx#: [id number] Sodium Chloride 0.9% 1, 1040 000 ml @ 60 mls/hr IV . [id number] [facility] Rx#:[id number] Oral 240 Output: Drainage 18 20 Right Lower Abdomen 18 20 Urine 450 1400 Other: Voiding Method Indwelling Catheter Indwelling Catheter Indwelling Catheter # Bowel Movements 1 3 - Exam - Constitutional General appearance: mild distress - EENT Eyes: EOMI, PERRLA ENT: hearing grossly normal, normal oropharynx - Neck Neck: no lymphadenopathy Thyroid: bilateral: normal size - Respiratory Respiratory: bilateral: diminished - Cardiovascular Rhythm: regular Heart sounds: normal: S1, S2 - Gastrointestinal With abdominal discomfort on palpation in the lower abdomen somewhat diffuse. No obvious rebound General gastrointestinal: normal bowel sounds, soft - Integumentary Integumentary: normal - Neurologic Neurologic: CNII-XII intact - Musculoskeletal Musculoskeletal: generalized weakness, strength equal bilaterally - Psychiatric Lethargic, responses are slow but approp - Labs CBC & Chem 7: 01/18/20 08:42 01/18/20 08:42 Labs: Abnormal Lab Results - Last 24 Hours (Table) 01/16/20 01/17/20 01/17/20 Range/Units 05:57 16:50 19:46 WBC (3.8-10.6) k/uL RBC (4.30-5.90) m/uL Hgb (13.0-17.5) gm/dL Hct (39.0-53.0) % MCHC (31.0-37.0) g/dL RDW (11.5-15.5) % Neutrophils # (1.3-7.7) k/uL Lymphocytes # (1.0-4.8) k/uL Chloride (98-107) mmol/L Carbon Dioxide (22-30) mmol/L Glucose (74-99) mg/dL POC Glucose (mg/dL) 263 H 240 H (75-99) mg/dL Calcium (8.4-10.2) mg/dL Methylmalonic Acid 0.78 H (<0.40) umol/L 01/18/20 01/18/20 01/18/20 Range/Units 06:15 08:42 08:42 WBC 12.0 H (3.8-10.6) k/uL RBC 3.07 L (4.30-5.90) m/uL Hgb 8.5 L (13.0-17.5) gm/dL Hct 27.5 L (39.0-53.0) % MCHC 30.7 L (31.0-37.0) g/dL RDW 15.8 H (11.5-15.5) % Neutrophils # 10.2 H (1.3-7.7) k/uL Lymphocytes # 0.9 L (1.0-4.8) k/uL Chloride 111 H (98-107) mmol/L Carbon Dioxide 21 L (22-30) mmol/L Glucose 250 H (74-99) mg/dL POC Glucose (mg/dL) 294 H (75-99) mg/dL Calcium 7.9 L (8.4-10.2) mg/dL Methylmalonic Acid (<0.40) umol/L 01/18/20 Range/Units 11:46 WBC (3.8-10.6) k/uL RBC (4.30-5.90) m/uL Hgb (13.0-17.5) gm/dL Hct (39.0-53.0) % MCHC (31.0-37.0) g/dL RDW (11.5-15.5) % Neutrophils # (1.3-7.7) k/uL Lymphocytes # (1.0-4.8) k/uL Chloride (98-107) mmol/L Carbon Dioxide (22-30) mmol/L Glucose (74-99) mg/dL POC Glucose (mg/dL) 282 H (75-99) mg/dL Calcium (8.4-10.2) mg/dL Methylmalonic Acid (<0.40) umol/L Microbiology - Last 24 Hours (Table) 01/12/20 11:59 Blood Culture - Final Blood No Growth after 144 hours 01/14/20 14:50 Gram Stain - Final Aspirate Body Fluid Culture - Final Proteus mirabilis Escherichia coli Enterococcus faecalis Alpha Hemolytic Streptococcus 01/14/20 18:16 Blood Culture - Preliminary Blood No Growth after 72 hours Assessment and Plan Plan: VQ scan report reviewed Chest x-ray: report reviewed CT scan - abdomen: report reviewed CT scan - pelvis: report reviewed Assessment and Plan SIRS (systemic inflammatory response syndrome): Improved - Originally evaluated in the office with noted low blood pressure, elevated heart rate and elevated respiratory rate. He was therefore sent in to the emergency room and has been admitted with antibiotics, intervention, and monitoring. - A VQ scan and cardiac ischemia workup were negative. - CT of the abdomen and pelvis did show a fluid collection adjacent to the sigmoid colon. He is now status post drainage of abscess - Last fever 01/13 103.2F. Afebrile since. Repeat cultures negative from 01/13 - The patient had a recent surgical procedure on 12/25/19 at [facility]. - Gram Stain body fluid culture with Gran Negative Bacilli. 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 plus considering the average post operative timeframe of 3-4 weeks when there is no obvious complications present. - In addition to his current acute situation other variables that must be considered are patient's age, multiple medical problems, and underlying renal insufficiency which may significantly increased risk of adverse events with chemotherapy. - At this time the plan is to set up a family meeting once the patient is more stable to discuss options. - Abscess negative for malignant cells - Will need to wait for increased performance and resolution of abscess, including completion of antibiotics prior to initiation of systemic treatment Dehydration Normocytic Anemia: - Improved, Stable - transfuse less than 7 Acute on Chronic Renal Insufficiency: - Stable - Due to ongoing nausea, vomiting, and decreased oral intake. - Continued IV hydration. - Continue to monitor renal function Weakness and decrease overall performance: - Continue to work with PT//OT - Will need to increase PS and resolve above issues prior to starting systemic treatment. Continue aggressive supportive care CBC in am Transfuse less than 7 Plan is for patient to continue with rehab, likely ECF at discharge. His chemotherapy will be held until performance status improved, completion of rehab and antibiotics. We will make a tentative appointment with Dr. Correa as outpatient within two weeks to re-evaluate.
--- NOTE | 2020-01-18 16:29 | PN ---
PROGRESS NOTE Patient is seen for followup for acute kidney injury. Patient's renal function continues to improve, his creatinine now staying at about 1.2 mg/dL. He has an intraabdominal abscess and currently has a drain in place. He is maintained on antibiotics and overall states that he is slightly better. Patient has a Landin catheter and has had good urine output. PHYSICAL EXAMINATION: On examination, blood pressure was 135/71, heart rate 93 per minute. He is afebrile. EXAMINATION OF THE HEART: S1 and S2. EXAMINATION OF LUNGS: Bilateral breath sounds are heard. ABDOMEN: Soft. Tenderness noted in lower abdomen at site of the drain. Examination of lower extremities shows trace edema bilaterally. BLOW MOLD TECHNICIAN exam is grossly intact. LABS: Labs show sodium 138, potassium 4.0, chloride 111, hemoglobin 8.5 g/dL. ASSESSMENT: 1. Acute kidney injury, acute tubular necrosis versus prerenal component, currently significantly improved. 2. Bladder cancer which is invasive and extending into the colon. No plans for surgery at this time. 3. Intraabdominal abscess, currently maintained on antibiotics with an intraabdominal drain. Mostly diverticular abscess. 4. Chronic kidney disease, stage 3B. Previous creatinine has been 1.6 to 1.8; however, now creatinine is down to about 1.2 mg/dL. PLAN: Encourage increased oral intake. Avoid nephrotoxins. Continue with Landin catheter for now. Continue current antibiotics. MMODL / IJN: [id number] /
[2020-01-18 16:54] LABS: Glucose,Whole Blood 263 mg/dL (75-99)
[2020-01-18] MEDS: CLOPIDOGREL 75 MG TAB PO SCH (19:28)
[2020-01-18 20:06] LABS: Glucose,Whole Blood 232 mg/dL (75-99)
[2020-01-18] MEDS ORDERED: diazePAM 5 MG TAB PO STA (21:16)
[2020-01-18] MEDS: AMPICILLIN-SULBACTAM 3 GM in SODIUM CHLORIDE 0.9% 100 ML IVPB SCH (23:12)
[2020-01-18] MEDS: MORPHINE SULFATE 4 MG/ML SYRINGE IVP PRN (23:20)
--- NOTE | 2020-01-19 01:48 | PN ---
PROGRESS NOTE DATE OF SERVICE: 01/18/2020. REASON FOR FOLLOWUP: Abdominal abscess. INTERVAL HISTORY: The patient is currently afebrile. The patient is breathing comfortably. Denies having any chest pain or cough. Abdominal pain has slightly decreased in intensity, however, complaining of significant diarrhea. Some nausea, but no vomiting. PHYSICAL EXAMINATION: Blood pressure is 148/73 with a pulse of 103, temperature 97.8. He is 98% on room air. General description is an elderly male up in the bed in no distress. RESPIRATORY SYSTEM: Unlabored breathing, clear to auscultation anteriorly. HEART: S1, S2. Regular rate and rhythm. ABDOMEN: Soft, mild tenderness. No guarding or rigidity. LABS: Hemoglobin 8.5, white count 12 with a BUN of 17, creatinine 1.23. The abdominal culture with Proteus, E coli, Enterococcus faecalis. DIAGNOSTIC IMPRESSION AND PLAN: 1. Patient with abdominal abscess, possible perforated diverticulitis in this patient culture has been predominantly gram-positive as well as no resistant gram-negative has been shown. Antibiotic will be adjusted to Unasyn 3 grams q.6. 2. With his significant diarrhea, possible antibiotic associated, we will check a stool for Clostridium difficile positive, add Questran for symptomatic relief. MMODL / IJN: [id number] /
[2020-01-19] MEDS: SODIUM CHLORIDE 0.9% 1,000 ML IV SCH ×3 (03:02→20:40)
[2020-01-19] MEDS: HYDROmorphone 1 MG/ML 1 ML SYRINGE IVP PRN (03:02)
[2020-01-19 06:05] LABS: Glucose,Whole Blood 171 mg/dL (75-99)
[2020-01-19] MEDS: INSULIN ASPART (NovoLOG) 100 UNIT/ML VIAL SQ SCH ×4 (06:30→20:38)
[2020-01-19] MEDS: AMPICILLIN-SULBACTAM 3 GM in SODIUM CHLORIDE 0.9% 100 ML IVPB SCH ×4 (06:31→23:58)
[2020-01-19] MEDS: LEVOTHYROXINE 50 MCG TAB PO SCH (06:32)
[2020-01-19 07:13] LABS: Glucose,Whole Blood 228 mg/dL (75-99)
[2020-01-19 08:11] LABS: Anisocytosis Slight; Basophils % (A) 0 %; Eosinophils # (A) 0.2 k/uL (0-0.7); Eosinophils % (A) 2 %; HCT 27.1 % (39.0-53.0); HGB 8.4 gm/dL (13.0-17.5); Hypochromasia Marked; Lymphocytes # (A) 1.2 k/uL (1.0-4.8); Lymphocytes % (A) 10 %; MCHC 30.8 g/dL (31.0-37.0); MCV 90.7 fL (80.0-100.0); Mean Platelet Volume 7.5; Monocytes # (A) 0.5 k/uL (0-1.0); Monocytes % (A) 4 %; Neutrophils # (A) 10.1 k/uL (1.3-7.7); Neutrophils % (A) 82 %; Platelet Count 278 k/uL (150-450); Poikilocytosis Slight; RBC 2.99 m/uL (4.30-5.90); RDW 16.1 % (11.5-15.5); WBC 12.3 k/uL (3.8-10.6)
[2020-01-19 08:30] LABS: Calcium 7.8 mg/dL (8.4-10.2); Potassium 3.8 mmol/L (3.5-5.1)
[2020-01-19] MEDS: INSULIN DETEMIR (LEVEMIR) 100 UNIT/ML SYR SQ SCH (08:57)
[2020-01-19] MEDS: ASPIRIN 81 MG PO SCH (08:57)
[2020-01-19] MEDS: CHOLESTYRAMINE (WITH SUGAR) 4 GM PACKET PO SCH ×3 (08:57→17:37)
[2020-01-19] MEDS: ISOSORBIDE MONONITRATE ER 30 MG TAB.ER.24H PO SCH (08:58)
[2020-01-19] MEDS: ENOXAPARIN 40 MG/0.4 ML SYRINGE SQ SCH (08:58)
--- NOTE | 2020-01-19 09:54 | P.PN ---
Subjective Progress Note Date: 01/19/20 CHIEF COMPLAINT: Diverticular abscess HISTORY OF PRESENT ILLNESS: Patient seen and examined with Dr. Garcia. Patient is status post CT guided drainage of the diverticular abscess. Patient had 240 mL of purulent fluid aspirated from the abscess. He has drainage tube in place and has pus-type fluid. He reports having bowel movements. Denies any nausea or vomiting. The ports improvement in his abdominal pain. Dr. Syed has adjusted antibiotics to Unasyn. Patient is afebrile. Sacral 0.3 hemoglobin 8.4 PHYSICAL EXAM: VITAL SIGNS: Reviewed. GENERAL: Well-developed in no acute distress. HEENT: No sclera icterus. Extraocular movements grossly intact. Moist buccal mucosa. Head is atraumatic, normocephalic. ABDOMEN: Soft. Nondistended. Tenderness left lower quadrant. Drainage tube present with pus in bag NEUROLOGIC: Alert and oriented. Cranial nerves II through XII grossly intact. ASSESSMENT: 1. Diverticular abscess status post computed tomography scan guided drainage 2. History of bladder cancer followed by oncology PLAN: -Continue antibiotics per ID -Continue regular diet -Continue DVT prophylaxis Lovenox -Patient follow-up with Dr. Garcia in 1 week -Patient can be discharged from a surgical standpoint with drain Physician Assistant Professor Of Geography note has been reviewed by physician. Signing provider agrees with the documented findings, assessment, and plan of care. Objective - Vital Signs Vital signs: Vital Signs Temp 98 F 01/19/20 08:00 Pulse 101 H 01/19/20 08:00 Resp 18 01/19/20 08:00 BP 148/82 01/19/20 08:00 Pulse Ox 98 01/19/20 08:00 Intake & Output 01/18/20 01/19/20 01/19/20 18:59 06:59 18:59 Intake Total 400 540 60 Output Total 630 700 Balance -230 -160 60 Weight 72.5 kg Intake: IV 540 Sodium Chloride 0.9% 1, 540 000 ml @ 60 mls/hr IV . [id number] Rx#:[id number] Oral 400 60 Output: Drainage 30 Right Lower Abdomen 30 Urine 600 700 Other: Voiding Method Indwelling Catheter Indwelling Catheter Indwelling Catheter # Bowel Movements 3 1 - Labs CBC & Chem 7: 01/19/20 07:33 01/19/20 07:33 Labs: Abnormal Lab Results - Last 24 Hours (Table) 01/18/20 01/18/20 01/18/20 Range/Units 11:46 16:53 20:04 WBC (3.8-10.6) k/uL RBC (4.30-5.90) m/uL Hgb (13.0-17.5) gm/dL Hct (39.0-53.0) % MCHC (31.0-37.0) g/dL RDW (11.5-15.5) % Neutrophils # (1.3-7.7) k/uL Chloride (98-107) mmol/L Glucose (74-99) mg/dL POC Glucose (mg/dL) 282 H 263 H 232 H (75-99) mg/dL Calcium (8.4-10.2) mg/dL 01/19/20 01/19/20 01/19/20 Range/Units 06:04 07:12 07:33 WBC 12.3 H (3.8-10.6) k/uL RBC 2.99 L (4.30-5.90) m/uL Hgb 8.4 L (13.0-17.5) gm/dL Hct 27.1 L (39.0-53.0) % MCHC 30.8 L (31.0-37.0) g/dL RDW 16.1 H (11.5-15.5) % Neutrophils # 10.1 H (1.3-7.7) k/uL Chloride (98-107) mmol/L Glucose (74-99) mg/dL POC Glucose (mg/dL) 171 H 228 H (75-99) mg/dL Calcium (8.4-10.2) mg/dL 01/19/20 Range/Units 07:33 WBC (3.8-10.6) k/uL RBC (4.30-5.90) m/uL Hgb (13.0-17.5) gm/dL Hct (39.0-53.0) % MCHC (31.0-37.0) g/dL RDW (11.5-15.5) % Neutrophils # (1.3-7.7) k/uL Chloride 112 H (98-107) mmol/L Glucose 189 H (74-99) mg/dL POC Glucose (mg/dL) (75-99) mg/dL Calcium 7.8 L (8.4-10.2) mg/dL Microbiology - Last 24 Hours (Table) 01/14/20 14:50 Anaerobic Culture - Final Aspirate 01/14/20 18:16 Blood Culture - Preliminary Blood No Growth after 96 hours 01/12/20 11:59 Blood Culture - Final Blood No Growth after 144 hours
--- NOTE | 2020-01-19 11:39 | P.DS ---
Providers Date of admission: 01/12/20 13:45 Expected date of discharge: 01/19/20 Attending physician: Vianney Herrera MD Consults: 01/12/20 13:46 Consult Physician Routine Consulting Provider: Maciej Corera Consult Reason/Comments: Patient known to physician Do you want consulting provider notified?: Yes 01/12/20 18:42 Consult Physician Routine Consulting Provider: Ryan Garcia Consult Reason/Comments: diverticular abscess Do you want consulting provider notified?: Yes 01/15/20 09:49 Consult Physician Routine Consulting Provider: Tommy Hopkins Consult Reason/Comments: CKD Do you want consulting provider notified?: Yes 01/15/20 13:20 Consult Physician Routine Consulting Provider: Alexandre Syed Consult Reason/Comments: diverticular abscess Do you want consulting provider notified?: Yes Primary care physician: [facility] Course: Admitting diagnoses: 1. Sepsis due to diverticular abscess Status post drainage of abscess 2. Normocytic anemia 3. Elevated d-dimer 4. Hyperkalemia 5. Acute kidney injury 6. Lactic acidosis 7. Bladder and bowel cancer 8. Chronic conditions that include diabetes mellitus, CAD, hypertension, & hypothyroidism Discharge diagnoses: 1. Sepsis due to diverticular abscess improved 2. Normocytic anemia hemoglobin stable at 8.4 3. Hyperkalemia resolved 4. Acute kidney injury resolved 5. Bladder and bowel cancer 6. Chronic conditions that include diabetes mellitus, CAD, hypertension, & hypothyroidism Patient seen and examined at bedside. Patient's drain remains. Minimal drainage seen. Patient denies chest pain, shortness of breath, nausea, vomiting, or fevers chills. Patient will be discharged today to SNF with IV antibiotics for 10 days. Vitals: Temperature 9 7.8 F heart rate 97 respiratory rate 16 blood pressure 159/87 oxygen saturation 99% on room air Hospital course: 79-year-old male with PMH of bladder and colon cancer, CAD, hypertension is sent from his oncologist clinic for hypotension and tachycardia. Of note, patient was recently discharged from [facility] on December 30 after undergoing laparoscopy for bladder and colon cancer were nothing was removed. Since then, patient has been experiencing multiple episodes of nausea and vomiting along with vague abdominal pain and generalized weakness. He denied any headache, lower extremity edema, fever or chills, cough, chest pain, shortness of breath, palpitations, changes in urination or bowel habits. No changes in appetite or weight. He denied any dizziness, numbness/weakness/tingling of the extremities. In the ED, he was hypotensive with BP of 64/42 with heart rate of 113. CBC showed leukocytosis of 26.5, hemoglobin of 11.4 and platelet count of 533. D- dimer was 1.6 and VQ scan showed low probability of PE. CMP showed sodium 132, potassium of 5.2, chloride of 96, HCO3 20, BUN 40, creatinine 1.7, glucose 248. Lactic acid was 3.5. Troponin was less than 0.012, EKG showing sinus tachycardia with occasional premature ventricular complex. Chest x-ray was negative. CT abdomen and pelvis showed a 9.3 x 6.3 x 8.9 fluid collection with air-fluid level contiguous with sigmoid colon. Patient was admitted for diverticular abscess and sepsis with surgery and oncology on consult. Patient was placed on IV antibiotics by infectious disease. Drainage of the abscess was CT-guided on 01/13/2010. 240 cc of purulent fluid aspirated at time of catheter placement. Cultures grew Proteus mirabilis, E. coli, enterococcus faecalis, and alpha hemolytic streptococcus Patient will be discharged to SNF today. Activity: as tolerated Condition: Fair Diet: Diabetic Follow-up: Surgery in 1 week and PCP within 2-7 days 1. Patient Condition at Discharge: Stable Plan - Discharge Summary Discharge Rx Participant: No New Discharge Prescriptions: New Enoxaparin [Lovenox] 40 mg SQ DAILY syringe Cholestyramine (with Sugar) [Questran Packet] 4 gm PO BID@1000,1800 30 Days #60 packet Ampicillin-Sulbactam [Unasyn] 3 gm IVPB Q6HR 10 Days #40 vial Continue Cyanocobalamin [Vitamin B-12] 500 mcg PO DAILY Cholecalciferol [Vitamin D3 (25 Mcg = 1000 Iu)] 1,000 unit PO DAILY Ascorbic Acid [Vitamin C] 500 mg PO DAILY Losartan Potassium 50 mg PO DAILY Insulin Aspart [NovoLOG] See Protocol SQ TID-W/MEALS Levothyroxine Sodium [Synthroid] 50 mcg PO DAILY Isosorbide Mononitrate [Isosorbide Mononitrate ER] 30 mg PO DAILY Insulin Glargine [Lantus] 20 - 30 unit SQ HS Clopidogrel [Plavix] 75 mg PO HS Ondansetron Odt [Zofran ODT] 8 mg PO Q8HR PRN PRN Reason: Nausea Aspirin [[place] Aspirin EC] 81 mg PO DAILY Discharge Medication List Ascorbic Acid [Vitamin C] 500 mg PO DAILY 03/31/18 [History] Cholecalciferol [Vitamin D3 (25 Mcg = 1000 Iu)] 1,000 unit PO DAILY 03/31/18 [History] Cyanocobalamin [Vitamin B-12] 500 mcg PO DAILY 03/31/18 [History] Losartan Potassium 50 mg PO DAILY 03/31/18 [History] Insulin Aspart [NovoLOG] See Protocol SQ TID-W/MEALS 08/01/18 [History] Insulin Glargine [Lantus] 20 - 30 unit SQ HS 10/10/19 [History] Isosorbide Mononitrate [Isosorbide Mononitrate ER] 30 mg PO DAILY 10/10/19 [History] Levothyroxine Sodium [Synthroid] 50 mcg PO DAILY 10/10/19 [History] Clopidogrel [Plavix] 75 mg PO HS 12/05/19 [History] Aspirin [[place] Aspirin EC] 81 mg PO DAILY 01/12/20 [History] Ondansetron Odt [Zofran ODT] 8 mg PO Q8HR PRN 01/12/20 [History] Ampicillin-Sulbactam [Unasyn] 3 gm IVPB Q6HR 10 Days #40 vial 01/19/20 [Rx] Cholestyramine (with Sugar) [Questran Packet] 4 gm PO BID@1000,1800 30 Days #60 packet 01/19/20 [Rx] Enoxaparin [Lovenox] 40 mg SQ DAILY syringe 01/19/20 [Rx] Follow up Appointment(s)/Referral(s): Maciej Correa MD [STAFF PHYSICIAN] - 1 Week Pola Rodriguez MD [Primary Care Provider] - 1-2 days Ryan Garcia MD [STAFF PHYSICIAN] - 1 Week Activity/Diet/Wound Care/Special Instructions: palliative score of 5
[2020-01-19 12:04] LABS: Glucose,Whole Blood 346 mg/dL (75-99)
--- NOTE | 2020-01-19 12:10 | PN ---
PROGRESS NOTE Patient is seen for followup for acute kidney injury, mostly acute tubular necrosis, currently significantly improved. He has an intraabdominal abscess, currently with a drain and maintained on antibiotics. The patient has a Landin catheter, as he has history of obstructive uropathy with underlying bladder cancer which is invasive into the adjacent colon. No plans for surgical therapy at this time for the bladder cancer. PHYSICAL EXAMINATION: Blood pressure was 148/82, heart rate 101 per minute, he is afebrile. Examination of the heart S1, S2. Examination of the lungs, bilateral breath sounds are heard. Decreased breath sounds at bases. Abdomen is soft. There is tenderness noted. Exam of lower extremities shows trace edema bilaterally. NEUROPSYCHIATRIC AIDE exam grossly intact. LAB: Show sodium 139, potassium 3.8, chloride 112, CO2 is 22, BUN 14, creatinine 1.21, hemoglobin 8.4 g/dL. ASSESSMENT: 1. Acute kidney injury associated with underlying infection and acute tubular necrosis, currently improving. 2. Intraabdominal abscess, currently with a drain and maintained on antibiotics. 3. Bladder cancer which is invasive extending into the colon. No plans for surgery. 4. Chronic kidney disease stage 3 with creatinine now down to about 1.2, which may be patient's new baseline. 5. History of obstructive uropathy, currently with long-term indwelling Landin catheter. PLAN: Encourage increased oral intake. Continue to avoid nephrotoxic agents. Maintain Landin catheter for now. MMODL / IJN: [id number] /
[2020-01-19 13:23] VITALS: BMI 25.0
[2020-01-19] MEDS: MORPHINE SULFATE 4 MG/ML SYRINGE IVP PRN ×2 (15:12→23:27)
--- NOTE | 2020-01-19 15:37 | PN ---
PROGRESS NOTE DATE OF SERVICE: 01/19/2020 REASON FOR FOLLOWUP: Abdominal abscess. INTERVAL HISTORY: The patient is currently afebrile. The patient is breathing comfortably. The patient denies having any chest pain or shortness of breath or cough. No nausea or vomiting. Abdominal pain is currently controlled and diarrhea has stopped. PHYSICAL EXAMINATION: Blood pressure is 95/53 with a pulse of 104, temperature 97.9. He is 100% on room air. General description is an elderly male up in the chair in no distress. RESPIRATORY SYSTEM: Unlabored breathing. Clear to auscultation anteriorly. HEART: S1, S2. Regular rate and rhythm. ABDOMEN: Soft. Mildly distended. No guarding or rigidity. LABS: Hemoglobin is 8.4, white count 12.3, BUN of 14, creatinine 1.21. Abdominal culture with Proteus mirabilis, E coli, Enterococcus faecalis. DIAGNOSTIC IMPRESSION AND PLAN: Patient with abdominal abscess, status post CT-guided drainage. The patient is going to a senior care. We are recommending getting a mid line and continuation of the IV Unasyn, which can be done every 8 hours for at least 10 days to 2 weeks, with close outpatient followup. MMODL / IJN: [id number] /
[2020-01-19 16:51] LABS: Glucose,Whole Blood 125 mg/dL (75-99)
--- NOTE | 2020-01-19 17:25 | P.PN ---
Subjective Progress Note Date: 01/19/20 Principal diagnosis: Fever/Abscess Objective - Vital Signs Vital signs: Vital Signs Temp 98 F 01/19/20 08:00 Pulse 101 H 01/19/20 08:00 Resp 18 01/19/20 08:00 BP 148/82 01/19/20 08:00 Pulse Ox 98 01/19/20 08:00 Intake & Output 01/18/20 01/19/20 01/19/20 18:59 06:59 18:59 Intake Total 400 540 60 Output Total 630 700 700 Balance -230 -160 -640 Weight 72.5 kg Intake: IV 540 Sodium Chloride 0.9% 1, 540 000 ml @ 60 mls/hr IV . [id number] [facility] Rx#:[id number] Oral 400 60 Output: Drainage 30 Right Lower Abdomen 30 Urine 600 700 Urine/Stool Mix 700 Other: Voiding Method Indwelling Catheter Indwelling Catheter Indwelling Catheter # Bowel Movements 3 1 - Exam - Constitutional General appearance: mild distress - EENT Eyes: EOMI, PERRLA ENT: hearing grossly normal, normal oropharynx - Neck Neck: no lymphadenopathy Thyroid: bilateral: normal size - Respiratory Respiratory: bilateral: diminished - Cardiovascular Rhythm: regular Heart sounds: normal: S1, S2 - Gastrointestinal With abdominal discomfort on palpation in the lower abdomen somewhat diffuse. No obvious rebound General gastrointestinal: normal bowel sounds, soft - Integumentary Integumentary: normal - Neurologic Neurologic: CNII-XII intact - Musculoskeletal Musculoskeletal: generalized weakness, strength equal bilaterally - Psychiatric Lethargic, responses are slow but approp - Labs CBC & Chem 7: 01/19/20 07:33 01/19/20 07:33 Labs: Abnormal Lab Results - Last 24 Hours (Table) 01/18/20 01/18/20 01/18/20 Range/Units 11:46 16:53 20:04 WBC (3.8-10.6) k/uL RBC (4.30-5.90) m/uL Hgb (13.0-17.5) gm/dL Hct (39.0-53.0) % MCHC (31.0-37.0) g/dL RDW (11.5-15.5) % Neutrophils # (1.3-7.7) k/uL Chloride (98-107) mmol/L Glucose (74-99) mg/dL POC Glucose (mg/dL) 282 H 263 H 232 H (75-99) mg/dL Calcium (8.4-10.2) mg/dL 01/19/20 01/19/20 01/19/20 Range/Units 06:04 07:12 07:33 WBC 12.3 H (3.8-10.6) k/uL RBC 2.99 L (4.30-5.90) m/uL Hgb 8.4 L (13.0-17.5) gm/dL Hct 27.1 L (39.0-53.0) % MCHC 30.8 L (31.0-37.0) g/dL RDW 16.1 H (11.5-15.5) % Neutrophils # 10.1 H (1.3-7.7) k/uL Chloride (98-107) mmol/L Glucose (74-99) mg/dL POC Glucose (mg/dL) 171 H 228 H (75-99) mg/dL Calcium (8.4-10.2) mg/dL 01/19/20 Range/Units 07:33 WBC (3.8-10.6) k/uL RBC (4.30-5.90) m/uL Hgb (13.0-17.5) gm/dL Hct (39.0-53.0) % MCHC (31.0-37.0) g/dL RDW (11.5-15.5) % Neutrophils # (1.3-7.7) k/uL Chloride 112 H (98-107) mmol/L Glucose 189 H (74-99) mg/dL POC Glucose (mg/dL) (75-99) mg/dL Calcium 7.8 L (8.4-10.2) mg/dL Microbiology - Last 24 Hours (Table) 01/14/20 14:50 Anaerobic Culture - Final Aspirate 01/14/20 18:16 Blood Culture - Preliminary Blood No Growth after 96 hours 01/12/20 11:59 Blood Culture - Final Blood No Growth after 144 hours Assessment and Plan Plan: VQ scan report reviewed Chest x-ray: report reviewed CT scan - abdomen: report reviewed CT scan - pelvis: report reviewed Assessment and Plan SIRS (systemic inflammatory response syndrome): Improved - Originally evaluated in the office with noted low blood pressure, elevated heart rate and elevated respiratory rate. He was therefore sent in to the emergency room and has been admitted with antibiotics, intervention, and monito ring. - A VQ scan and cardiac ischemia workup were negative. - CT of the abdomen and pelvis did show a fluid collection adjacent to the sigmoid colon. He is now status post drainage of abscess - Last fever 01/13 103.2F. Afebrile since. Repeat cultures negative from 01/13 - The patient had a recent surgical procedure on 12/25/19 at [facility]. - Gram Stain body fluid culture with Gran Negative Bacilli. 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 plus considering the average post operative timeframe of 3-4 weeks when there is no obvious complications present. - In addition to his current acute situation other variables that must be considered are patient's age, multiple medical problems, and underlying renal insufficiency which may significantly increased risk of adverse events with chemotherapy. - At this time the plan is to set up a family meeting once the patient is more stable to discuss options. - Abscess negative for malignant cells - Will need to wait for increased performance and resolution of abscess, including completion of antibiotics prior to initiation of systemic treatment Dehydration Normocytic Anemia: - Improved, Stable - hemoglobin 8.4 today - transfuse less than 7 Acute on Chronic Renal Insufficiency: - Stable - Due to ongoing nausea, vomiting, and decreased oral intake. - Continued IV hydration. - Continue to monitor renal function Weakness and decrease overall performance: - Continue to work with PT//OT - Will need to increase PS and resolve above issues prior to starting systemic treatment. Continue aggressive supportive care CBC in am Transfuse less than 7 Plan is for patient to continue with rehab, likely ECF at discharge. His chemotherapy will be held until performance status improved, completion of rehab and antibiotics. We will make a tentative appointment with Dr. Correa as outpatient within two weeks to re-evaluate.
[2020-01-19 20:35] LABS: Glucose,Whole Blood 186 mg/dL (75-99)
[2020-01-19] MEDS: CLOPIDOGREL 75 MG TAB PO SCH (20:38)
[2020-01-20] MEDS: AMPICILLIN-SULBACTAM 3 GM in SODIUM CHLORIDE 0.9% 100 ML IVPB SCH ×4 (06:12→23:17)
[2020-01-20] MEDS: LEVOTHYROXINE 50 MCG TAB PO SCH (06:12)
[2020-01-20] MEDS: MORPHINE SULFATE 4 MG/ML SYRINGE IVP PRN ×2 (06:47→20:04)
[2020-01-20 07:14] LABS: Glucose,Whole Blood 225 mg/dL (75-99)
[2020-01-20] MEDS: INSULIN ASPART (NovoLOG) 100 UNIT/ML VIAL SQ SCH ×4 (07:29→21:28)
[2020-01-20] MEDS: INSULIN DETEMIR (LEVEMIR) 100 UNIT/ML SYR SQ SCH (07:29)
[2020-01-20] MEDS: CHOLESTYRAMINE (WITH SUGAR) 4 GM PACKET PO SCH ×2 (08:40→17:31)
[2020-01-20] MEDS: ENOXAPARIN 40 MG/0.4 ML SYRINGE SQ SCH (08:40)
[2020-01-20] MEDS: ASPIRIN 81 MG PO SCH (08:40)
[2020-01-20] MEDS: ISOSORBIDE MONONITRATE ER 30 MG TAB.ER.24H PO SCH (08:40)
--- NOTE | 2020-01-20 10:13 | P.PN ---
Subjective Patient seen and examined at bedside. Patient denies chest pain shortness of breath, nausea, vomiting, fevers, or chills. Discharge has been delayed until Wednesday secondary to insurance issues. Objective - Vital Signs Vital signs: Vital Signs Temp 97.8 F 01/20/20 08:47 Pulse 104 H 01/20/20 08:47 Resp 18 01/20/20 08:47 BP 174/83 01/20/20 08:47 Pulse Ox 99 01/20/20 08:47 Intake & Output 01/19/20 01/20/20 01/20/20 18:59 06:59 18:59 Intake Total 60 100 700 Output Total 1600 1730 Balance -1540 -1630 700 Weight 72.5 kg 65 kg Intake: IV 600 Sodium Chloride 0.9% 1, 600 000 ml @ 60 mls/hr IV . [id number] [facility] Rx#:[id number] Intake, IV Titration 100 100 Amount Ampicillin-Sulbactam 3 gm 100 100 In Sodium Chloride 0.9% 100 ml @ 200 mls/hr IVPB Q6HR [facility] Rx#:[id number] Oral 60 Output: Drainage 30 Right Lower Abdomen 30 Urine 900 1700 Urine/Stool Mix 700 Other: Voiding Method Indwelling Catheter Indwelling Catheter - Exam General: [non toxic], [no distress], [appears at stated age] Derm: [warm], [dry] Head: [atraumatic], [normocephalic], [symmetric] Eyes: [EOMI], [no lid lag], [anicteric sclera] Mouth: [no lip lesion], [mucus membranes moist] Cardiovascular: [S1S2 reg], [no murmur], [positive posterior tibial pulse bilateral], Lungs: [CTA bilateral], [no rhonchi, no rales] , [no accessory muscle use] Abdominal: [soft], [ tender to palpation HUDSON drain in place minimal drainage], [no guarding], [no appreciable organomegaly] Ext: [no gross muscle atrophy], [no edema], [no contractures] Neuro: [ CN II-XI grossly intact], [no focal neuro deficits] Psych: [Alert], [oriented], [appropriate affect] - Labs CBC & Chem 7: 01/19/20 07:33 01/19/20 07:33 Labs: Abnormal Lab Results - Last 24 Hours (Table) 01/16/20 01/19/20 01/19/20 Range/Units 05:57 12:03 16:49 POC Glucose (mg/dL) 346 H 125 H (75-99) mg/dL Erythropoietin 55.18 H (2.00-30.00) mIU/mL 01/19/20 01/20/20 Range/Units 20:34 07:13 POC Glucose (mg/dL) 186 H 225 H (75-99) mg/dL Erythropoietin (2.00-30.00) mIU/mL Microbiology - Last 24 Hours (Table) 01/14/20 18:16 Blood Culture - Preliminary Blood No Growth after 120 hours 01/14/20 14:50 Fungal Culture - Preliminary Aspirate Josselyn albicans Assessment and Plan Assessment: 1. Sepsis due to diverticular abscess Status post drainage of abscess. HUDSNO drain in place. Surgery recs and ID recs appreciated I spoke with ID, Dr. Syed, Josselyn grew in aspirate as a result Diflucan was added 2. Normocytic anemia-stable continue to monitor CBC 3. Hyperkalemia-resolved trend CMP 4. Acute kidney injury-resolved Monintor BUN/CR 5. Bladder and bowel cancer Oncology recs appreciated Landin in place 8. Chronic conditions that include diabetes mellitus, CAD, hypertension, & hypothyroidism 9. AM labs Anticipated discharge to SNF this Wednesday Time with Patient: Greater than 30
--- NOTE | 2020-01-20 11:31 | P.PN ---
Subjective Progress Note Date: 01/20/20 Principal diagnosis: Diverticular abscess Patient doing better today. Pain is improved. Drain is still purulent in nature. Remains on antibiotics. Tolerating diet. Objective - Vital Signs Vital signs: Vital Signs Temp 97.8 F 01/20/20 08:47 Pulse 104 H 01/20/20 08:47 Resp 18 01/20/20 08:47 BP 174/83 01/20/20 08:47 Pulse Ox 99 01/20/20 08:47 Intake & Output 01/19/20 01/20/20 01/20/20 18:59 06:59 18:59 Intake Total 60 100 700 Output Total 1600 1730 Balance -1540 -1630 700 Weight 72.5 kg 65 kg Intake: IV 600 Sodium Chloride 0.9% 1, 600 000 ml @ 60 mls/hr IV . [id number] [facility] Rx#:[id number] Intake, IV Titration 100 100 Amount Ampicillin-Sulbactam 3 gm 100 100 In Sodium Chloride 0.9% 100 ml @ 200 mls/hr IVPB Q6HR [facility] Rx#:[id number] Oral 60 Output: Drainage 30 Right Lower Abdomen 30 Urine 900 1700 Urine/Stool Mix 700 Other: Voiding Method Indwelling Catheter Indwelling Catheter - Exam Abdomen: Soft, nondistended, minimal tenderness, recent incisions clean and dry, drain intact - Labs CBC & Chem 7: 01/19/20 07:33 01/19/20 07:33 Labs: Abnormal Lab Results - Last 24 Hours (Table) 01/16/20 01/19/20 01/19/20 Range/Units 05:57 12:03 16:49 POC Glucose (mg/dL) 346 H 125 H (75-99) mg/dL Erythropoietin 55.18 H (2.00-30.00) mIU/mL 01/19/20 01/20/20 Range/Units 20:34 07:13 POC Glucose (mg/dL) 186 H 225 H (75-99) mg/dL Erythropoietin (2.00-30.00) mIU/mL Microbiology - Last 24 Hours (Table) 01/14/20 18:16 Blood Culture - Preliminary Blood No Growth after 120 hours 01/14/20 14:50 Fungal Culture - Preliminary Aspirate Josselyn albicans Assessment and Plan Plan: Patient seems to be doing fairly well. Continue antibiotics. Continue regular diet. Arrangements for ECF underway.
--- NOTE | 2020-01-20 11:33 | P.PN ---
Subjective Progress Note Date: 01/20/20 Principal diagnosis: 79-year-old male who was admitted because of abscess from diverticulitis had drainage, had acute kidney injury which is slowly resolving. Creatinine down to 1.2. Good urine Complaining of loss of appetite. No nausea vomiting is moving his bowels. He denies any chest pain shortness of breath fever chills Additionally he is known with bladder cancer and diabetes Objective - Vital Signs Vital signs: Vital Signs Temp 97.8 F 01/20/20 08:47 Pulse 104 H 01/20/20 08:47 Resp 18 01/20/20 08:47 BP 174/83 01/20/20 08:47 Pulse Ox 99 01/20/20 08:47 Intake & Output 01/19/20 01/20/20 01/20/20 18:59 06:59 18:59 Intake Total 60 100 700 Output Total 1600 1730 Balance -1540 -1630 700 Weight 72.5 kg 65 kg Intake: IV 600 Sodium Chloride 0.9% 1, 600 000 ml @ 60 mls/hr IV . [id number] [facility] Rx#:[id number] Intake, IV Titration 100 100 Amount Ampicillin-Sulbactam 3 gm 100 100 In Sodium Chloride 0.9% 100 ml @ 200 mls/hr IVPB Q6HR [facility] Rx#:[id number] Oral 60 Output: Drainage 30 Right Lower Abdomen 30 Urine 900 1700 Urine/Stool Mix 700 Other: Voiding Method Indwelling Catheter Indwelling Catheter On examination is awake alert oriented comfortable HEENT exam no JVP neck is supple no facial asymmetry Lungs are clear to auscultation good air entry bilaterally Heart sounds are unremarkable for any murmur rub gallop Abdomen soft nontender distended. He has a drain coming from the lower abdomen on the left Extremity exam minimal mild edema Neurologically awake alert oriented but - Labs CBC & Chem 7: 01/19/20 07:33 01/19/20 07:33 Labs: Abnormal Lab Results - Last 24 Hours (Table) 01/16/20 01/19/20 01/19/20 Range/Units 05:57 12:03 16:49 POC Glucose (mg/dL) 346 H 125 H (75-99) mg/dL Erythropoietin 55.18 H (2.00-30.00) mIU/mL 01/19/20 01/20/20 Range/Units 20:34 07:13 POC Glucose (mg/dL) 186 H 225 H (75-99) mg/dL Erythropoietin (2.00-30.00) mIU/mL Microbiology - Last 24 Hours (Table) 01/14/20 18:16 Blood Culture - Preliminary Blood No Growth after 120 hours 01/14/20 14:50 Fungal Culture - Preliminary Aspirate Josselyn albicans Assessment and Plan Assessment: Impression 1. Acute kidney injury from ATN from intra-abdominal abscess improving creatinine down to 1.2 2. Minimal edema 3. Poor intake is on liquids orally because he has no appetite 4. History of bowel cancer and bladder cancer 5. Diabetes mellitus Recommendations 1. Pressure like to ambulate and is requesting that if possible to discontinue his IV fluids. Will proceed and discontinue his IV fluid we will need Hep-Lock for antibiotics and morphine
[2020-01-20 12:16] LABS: Glucose,Whole Blood 284 mg/dL (75-99)
[2020-01-20] MEDS: FLUCONAZOLE 100 MG TAB PO SCH (12:24)
--- NOTE | 2020-01-20 16:22 | PN ---
PROGRESS NOTE DATE OF SERVICE: 01/20/2020 REASON FOR FOLLOWUP: Intraabdominal abscess. INTERVAL HISTORY: Patient is currently afebrile. The patient is feeling better. Breathing comfortably. Denies having any chest pain. No shortness of breath or cough. Abdominal pain is currently controlled. No nausea, vomiting and diarrhea has slowed down. PHYSICAL EXAMINATION: Blood pressure 125/56, pulse of 95, temperature 98.8. He is 98% on room air. General description: The patient is an elderly male up in the chair in no distress. Respiratory system: Unlabored breathing. Clear to auscultation anteriorly. Heart S1, S2. Regular rate and rhythm. Abdomen soft. No tenderness. LABS: Abdomen aspirate culture now showing Josselyn albicans in addition to the other pathogen. DIAGNOSTIC IMPRESSION AND PLAN: Patient with abdominal abscess status post drainage, culture multiple pathogen. Patient covered with Unasyn, Diflucan has been added today to continue and we will monitor his clinical course closely. MMODL / IJN: [id number] /
[2020-01-20 17:15] LABS: Glucose,Whole Blood 278 mg/dL (75-99)
[2020-01-20] MEDS: CLOPIDOGREL 75 MG TAB PO SCH (20:04)
[2020-01-20 20:48] LABS: Glucose,Whole Blood 260 mg/dL (75-99)
[2020-01-21 04:16] VITALS: RESP 18
[2020-01-21] MEDS: LEVOTHYROXINE 50 MCG TAB PO SCH (05:44)
[2020-01-21] MEDS: AMPICILLIN-SULBACTAM 3 GM in SODIUM CHLORIDE 0.9% 100 ML IVPB SCH ×4 (05:44→23:02)
[2020-01-21] MEDS: MORPHINE SULFATE 4 MG/ML SYRINGE IVP PRN ×2 (05:50→20:24)
[2020-01-21 06:16] LABS: Anisocytosis Slight; Basophils % (A) 0 %; Eosinophils # (A) 0.3 k/uL (0-0.7); Eosinophils % (A) 2 %; HCT 23.8 % (39.0-53.0); HGB 7.2 gm/dL (13.0-17.5); Hypochromasia Moderate; Lymphocytes # (A) 1.2 k/uL (1.0-4.8); Lymphocytes % (A) 10 %; MCHC 30.2 g/dL (31.0-37.0); MCV 89.3 fL (80.0-100.0); Mean Platelet Volume 7.4; Monocytes # (A) 0.5 k/uL (0-1.0); Monocytes % (A) 4 %; Neutrophils # (A) 10.3 k/uL (1.3-7.7); Neutrophils % (A) 81 %; Platelet Count 305 k/uL (150-450); RBC 2.67 m/uL (4.30-5.90); RDW 16.8 % (11.5-15.5); WBC 12.7 k/uL (3.8-10.6)
[2020-01-21 06:28] LABS: Albumin 2.4 g/dL (3.5-5.0); Calcium 8.3 mg/dL (8.4-10.2); Total Bilirubin 0.3 mg/dL (0.2-1.3); Total Protein 4.9 g/dL (6.3-8.2)
[2020-01-21 06:35] LABS: Glucose,Whole Blood 238 mg/dL (75-99)
[2020-01-21] MEDS: INSULIN DETEMIR (LEVEMIR) 100 UNIT/ML SYR SQ SCH (06:44)
[2020-01-21] MEDS: INSULIN ASPART (NovoLOG) 100 UNIT/ML VIAL SQ SCH ×4 (06:45→20:23)
[2020-01-21] MEDS: ASPIRIN 81 MG PO SCH (08:27)
[2020-01-21] MEDS: ENOXAPARIN 40 MG/0.4 ML SYRINGE SQ SCH (08:27)
[2020-01-21] MEDS: ISOSORBIDE MONONITRATE ER 30 MG TAB.ER.24H PO SCH (08:27)
[2020-01-21] MEDS: FLUCONAZOLE 100 MG TAB PO SCH (08:27)
[2020-01-21] MEDS: CHOLESTYRAMINE (WITH SUGAR) 4 GM PACKET PO SCH ×2 (08:28→17:22)
[2020-01-21] MEDS ORDERED: INSULIN DETEMIR (LEVEMIR) 100 UNIT/ML SYR SQ ONE (09:00)
--- NOTE | 2020-01-21 09:55 | P.PN ---
Subjective Progress Note Date: 01/21/20 No new complaints today. Pending discharge to SNF. Objective - Vital Signs Vital signs: Vital Signs Temp 98.2 F 01/21/20 08:37 Pulse 104 H 01/21/20 08:37 Resp 18 01/21/20 08:37 BP 180/85 01/21/20 08:37 Pulse Ox 98 01/21/20 08:37 Intake & Output 01/20/20 01/21/20 01/21/20 18:59 06:59 18:59 Intake Total 1180 340 Output Total 900 402 Balance 280 -62 Weight 75.5 kg Intake: IV 600 Sodium Chloride 0.9% 1, 600 000 ml @ 60 mls/hr IV . [id number] [facility] Rx#:[id number] Intake, IV Titration 100 100 Amount Ampicillin-Sulbactam 3 gm 100 100 In Sodium Chloride 0.9% 100 ml @ 200 mls/hr IVPB Q6HR [facility] Rx#:[id number] Oral 480 240 Output: Drainage 2 Right Lower Abdomen 2 Urine 900 400 Other: Voiding Method Indwelling Catheter Indwelling Catheter - Exam Gen: awake, alert HEENT: normocephalic, atraumatic, good hearing acuity, dry mucous membranes Resp: CTAB, good air exchange, no accessory muscle use, no wheezes, crackles, rhonchi CVS: good distal perfusion x 4, RRR, no murmurs, clicks, gallops GI: distended, TTP, abdominal drain in place : no SPT, no CVAT, skelton catheter not present MSK: no pitting edema, no clubbing Neuro: non-focal, no sensory deficits, appropriate tone Psych: cooperative, euthymic mood - Labs CBC & Chem 7: 01/21/20 05:26 01/21/20 05:26 Labs: Abnormal Lab Results - Last 24 Hours (Table) 01/20/20 01/20/20 01/20/20 Range/Units 12:12 17:12 20:47 WBC (3.8-10.6) k/uL RBC (4.30-5.90) m/uL Hgb (13.0-17.5) gm/dL Hct (39.0-53.0) % MCHC (31.0-37.0) g/dL RDW (11.5-15.5) % Neutrophils # (1.3-7.7) k/uL BUN (9-20) mg/dL Glucose (74-99) mg/dL POC Glucose (mg/dL) 284 H 278 H 260 H (75-99) mg/dL Calcium (8.4-10.2) mg/dL AST (17-59) U/L Total Protein (6.3-8.2) g/dL Albumin (3.5-5.0) g/dL 01/21/20 01/21/20 01/21/20 Range/Units 05:26 05:26 06:33 WBC 12.7 H (3.8-10.6) k/uL RBC 2.67 L (4.30-5.90) m/uL Hgb 7.2 L (13.0-17.5) gm/dL Hct 23.8 L (39.0-53.0) % MCHC 30.2 L (31.0-37.0) g/dL RDW 16.8 H (11.5-15.5) % Neutrophils # 10.3 H (1.3-7.7) k/uL BUN 22 H (9-20) mg/dL Glucose 189 H (74-99) mg/dL POC Glucose (mg/dL) 238 H (75-99) mg/dL Calcium 8.3 L (8.4-10.2) mg/dL AST 13 L (17-59) U/L Total Protein 4.9 L (6.3-8.2) g/dL Albumin 2.4 L (3.5-5.0) g/dL Microbiology - Last 24 Hours (Table) 01/14/20 18:16 Blood Culture - Final Blood No Growth after 144 hours Assessment and Plan Assessment: Sepsis due to diverticular abscess Normocytic anemia Elevated d-dimer Hyperkalemia Acute kidney injury Lactic acidosis Diabetes mellitus CAD Hypertension Hypothyroidism Bladder and bowel cancer Patient meets sepsis criteria. CT abdomen and pelvis shows diverticular abscess. Plans: Start Flagyl and Zosyn IV. Zofran as needed for nausea or vomiting. Start normal saline at 130 mL per hour. Tylenol as needed for fever. Pain control with morphine as needed + dilaudid [employer] (d/c'd 01/14). Telemetry monitoring. Follow blood culture - NGTD. Follow surgery recommendations. S/p IR drainage of 250cc purulent fluid. Follow up microbiology = growing polymicrobial (E coli, enterococcus, proteus, alpha-hemolytic strep). Covered with zosyn/flagyl. Hemoglobin 11.4. Likely related to malignancy. Plans: Repeat CBC tomorrow morning. Transfuse if hemoglobin less than 7. D-dimer 1.62. Likely related to malignancy. Plans: Low likelihood of PE. V/Q scan shows low probability PE. Continue to monitor. Potassium 5.2. Likely due to dehydration. Plans: Hydration as above. Telemetry monitoring. Repeat BMP tomorrow morning. Hold losartan. Creatinine 1.7. Likely due to dehydration. Plans: Hydration as above. Avoid nephrotoxins. Repeat BMP tomorrow morning. Hold losartan. Lactic acid 3.5. Likely related to underlying infection. Plans: Hydration as above. Repeat until negative. [id number] glucose 248. Plans: Insulin sliding scale. Regular Accu-Cheks. Hypoglycemic precautions. Plans: Continue aspirin and Plavix. Plans: Continue Imdur. Plans: Continue Synthroid. Plans: Follow oncology consultation. DVT prophylaxis: [Lovenox] Discussed with: [Patient] Anticipated discharge: [1-2 days] Anticipated discharge place: SNF, patient is almost medically ready to go to rehab, once drain output slows, can pull, then convert to oral antibiotics and discharge.
--- NOTE | 2020-01-21 10:50 | P.PN ---
Subjective Progress Note Date: 01/21/20 Principal diagnosis: Diverticular abscess Patient without new complaints. Says his pain is improving. White blood cell count 12.7 today. He is afebrile. Tolerating diet. Objective - Vital Signs Vital signs: Vital Signs Temp 98.2 F 01/21/20 08:37 Pulse 104 H 01/21/20 08:37 Resp 18 01/21/20 08:37 BP 180/85 01/21/20 08:37 Pulse Ox 98 01/21/20 08:37 Intake & Output 01/20/20 01/21/20 01/21/20 18:59 06:59 18:59 Intake Total 1180 340 Output Total 900 402 Balance 280 -62 Weight 75.5 kg Intake: IV 600 Sodium Chloride 0.9% 1, 600 000 ml @ 60 mls/hr IV . [id number] [facility] Rx#:[id number] Intake, IV Titration 100 100 Amount Ampicillin-Sulbactam 3 gm 100 100 In Sodium Chloride 0.9% 100 ml @ 200 mls/hr IVPB Q6HR [facility] Rx#:[id number] Oral 480 240 Output: Drainage 2 Right Lower Abdomen 2 Urine 900 400 Other: Voiding Method Indwelling Catheter Indwelling Catheter - Exam Abdomen: Soft, nondistended, drain in place, purulent output, incisions clean and dry, minimal tenderness - Labs CBC & Chem 7: 01/21/20 05:26 01/21/20 05:26 Labs: Abnormal Lab Results - Last 24 Hours (Table) 01/20/20 01/20/20 01/20/20 Range/Units 12:12 17:12 20:47 WBC (3.8-10.6) k/uL RBC (4.30-5.90) m/uL Hgb (13.0-17.5) gm/dL Hct (39.0-53.0) % MCHC (31.0-37.0) g/dL RDW (11.5-15.5) % Neutrophils # (1.3-7.7) k/uL BUN (9-20) mg/dL Glucose (74-99) mg/dL POC Glucose (mg/dL) 284 H 278 H 260 H (75-99) mg/dL Calcium (8.4-10.2) mg/dL AST (17-59) U/L Total Protein (6.3-8.2) g/dL Albumin (3.5-5.0) g/dL 01/21/20 01/21/20 01/21/20 Range/Units 05:26 05:26 06:33 WBC 12.7 H (3.8-10.6) k/uL RBC 2.67 L (4.30-5.90) m/uL Hgb 7.2 L (13.0-17.5) gm/dL Hct 23.8 L (39.0-53.0) % MCHC 30.2 L (31.0-37.0) g/dL RDW 16.8 H (11.5-15.5) % Neutrophils # 10.3 H (1.3-7.7) k/uL BUN 22 H (9-20) mg/dL Glucose 189 H (74-99) mg/dL POC Glucose (mg/dL) 238 H (75-99) mg/dL Calcium 8.3 L (8.4-10.2) mg/dL AST 13 L (17-59) U/L Total Protein 4.9 L (6.3-8.2) g/dL Albumin 2.4 L (3.5-5.0) g/dL Microbiology - Last 24 Hours (Table) 01/14/20 18:16 Blood Culture - Final Blood No Growth after 144 hours Assessment and Plan (1) Intra-abdominal abscess Narrative/Plan: Patient seems to be gradually improving. Continue drain to dependent drainage. Possible transfer to ECF. Current Visit: Yes Status: Acute Code(s): K65.1 - PERITONEAL ABSCESS SNOMED Code(s): 56972393
[2020-01-21 11:59] LABS: Glucose,Whole Blood 275 mg/dL (75-99)
[2020-01-21 17:16] LABS: Glucose,Whole Blood 267 mg/dL (75-99)
[2020-01-21 20:06] LABS: Glucose,Whole Blood 166 mg/dL (75-99)
[2020-01-21] MEDS: CLOPIDOGREL 75 MG TAB PO SCH (20:22)
[2020-01-21] MEDS ORDERED: MIRTAZAPINE 15 MG TAB PO SCH (21:00)
--- NOTE | 2020-01-21 23:40 | PN ---
PROGRESS NOTE DATE OF SERVICE: 01/21/2020 REASON FOR FOLLOWUP: Intraabdominal abscess. INTERVAL HISTORY: The patient is currently afebrile, has been breathing comfortably. Still has some abdominal discomfort and diarrhea. No nausea, no vomiting. No chest pain, shortness of breath or cough. PHYSICAL EXAMINATION: Blood pressure 144/73 with a pulse of 106, temperature 98.3. He is 99% on room air. General description is an elderly male up in the chair in no distress. LABS: Hemoglobin 7.2, white count 12.7, BUN of 22, creatinine 1.14. DIAGNOSTIC IMPRESSION AND PLAN: Patient with intraabdominal abscess, status post CT-guided drainage, culture with Streptococcus, Enterococcus faecalis, Escherichia coli and Proteus mirabilis for which the patient is currently covered with Unasyn and Diflucan to continue for another 10 days and close outpatient followup. Family at the bedside, questions were answered. MMODL / IJN: [id number] /
[2020-01-22 06:07] LABS: Glucose,Whole Blood 143 mg/dL (75-99)
[2020-01-22] MEDS: AMPICILLIN-SULBACTAM 3 GM in SODIUM CHLORIDE 0.9% 100 ML IVPB SCH ×2 (06:23→12:28)
[2020-01-22] MEDS: INSULIN ASPART (NovoLOG) 100 UNIT/ML VIAL SQ SCH ×3 (06:29→16:59)
[2020-01-22] MEDS ORDERED: INSULIN DETEMIR (LEVEMIR) 100 UNIT/ML SYR SQ SCH (07:00)
--- NOTE | 2020-01-22 08:45 | P.DS ---
Providers Date of admission: 01/12/20 13:45 Attending physician: Vianney Herrera MD Consults: 01/12/20 13:46 Consult Physician Routine Consulting Provider: Maciej Correa Consult Reason/Comments: Patient known to physician Do you want consulting provider notified?: Yes 01/12/20 18:42 Consult Physician Routine Consulting Provider: Ryna Garcia Consult Reason/Comments: diverticular abscess Do you want consulting provider notified?: Yes 01/15/20 09:49 Consult Physician Routine Consulting Provider: Tommy Hopkins Consult Reason/Comments: CKD Do you want consulting provider notified?: Yes 01/15/20 13:20 Consult Physician Routine Consulting Provider: Alexandre Syed Consult Reason/Comments: diverticular abscess Do you want consulting provider notified?: Yes Primary care physician: Pola Rodriguez [facility] Course: Admitting diagnoses: 1. Sepsis due to diverticular abscess Status post drainage of abscess 2. Normocytic anemia 3. Elevated d-dimer 4. Hyperkalemia 5. Acute kidney injury 6. Lactic acidosis 7. Bladder and bowel cancer 8. Chronic conditions that include diabetes mellitus, CAD, hypertension, & hypothyroidism Discharge diagnoses: 1. Sepsis due to diverticular abscess improved 2. Normocytic anemia hemoglobin 3. Hyperkalemia resolved 4. Acute kidney injury resolved 5. Bladder and bowel cancer 6. Chronic conditions that include diabetes mellitus, CAD, hypertension, & hypothyroidism Patient seen and examined at bedside. Patient's drain remains. Minimal drainage seen. Patient denies chest pain, shortness of breath, nausea, vomiting, or fevers chills. Patient will be discharged today to SNF with IV antibiotics for 10 days. Vitals: Temperature 9 7.8 F heart rate 97 respiratory rate 16 blood pressure 159/87 oxygen saturation 99% on room air Hospital course: 79-year-old male with PMH of bladder and colon cancer, CAD, hypertension is sent from his oncologist clinic for hypotension and tachycardia. Of note, patient was recently discharged from [facility] on December 30 after undergoing laparoscopy for bladder and colon cancer were nothing was removed. Since then, patient has been experiencing multiple episodes of nausea and vomiting along with vague abdominal pain and generalized weakness. He denied any headache, lower extremity edema, fever or chills, cough, chest pain, shortness of breath, palpitations, changes in urination or bowel habits. No changes in appetite or weight. He denied any dizziness, numbness/weakness/tingling of the extremities. In the ED, he was hypotensive with BP of 64/42 with heart rate of 113. CBC showed leukocytosis of 26.5, hemoglobin of 11.4 and platelet count of 533. D- dimer was 1.6 and VQ scan showed low probability of PE. CMP showed sodium 132, potassium of 5.2, chloride of 96, HCO3 20, BUN 40, creatinine 1.7, glucose 248. Lactic acid was 3.5. Troponin was less than 0.012, EKG showing sinus tachycardia with occasional premature ventricular complex. Chest x-ray was negative. CT abdomen and pelvis showed a 9.3 x 6.3 x 8.9 fluid collection with air-fluid level contiguous with sigmoid colon. Patient was admitted for diverticular abscess and sepsis with surgery and oncology on consult. Patient was placed on IV antibiotics by infectious disease. Drainage of the abscess was CT-guided on 01/13/2010. 240 cc of purulent fluid aspirated at time of catheter placement. Cultures grew Proteus mirabilis, E. coli, enterococcus faecalis, and alpha hemolytic streptococcus Patient will be discharged to SNF today. Activity: as tolerated Condition: Fair Diet: Diabetic Follow-up: Surgery in 1 week and PCP within 2-7 days Discharge was originally planned for 01/18, but delayed to 01/21 due to insurance issues. Patient Condition at Discharge: Stable Plan - Discharge Summary Discharge Rx Participant: Yes New Discharge Prescriptions: New Enoxaparin [Lovenox] 40 mg SQ DAILY syringe Cholestyramine (with Sugar) [Questran Packet] 4 gm PO BID@1000,1800 30 Days #60 packet Ampicillin-Sulbactam [Unasyn] 3 gm IVPB Q6HR 10 Days #40 vial Fluconazole [Diflucan] 200 mg PO DAILY tab Insulin Detemir (Levemir) [Levemir] 20 unit SQ DAILY@0700 syr Mirtazapine [Remeron] 7.5 mg PO HS tab Continue Cyanocobalamin [Vitamin B-12] 500 mcg PO DAILY Cholecalciferol [Vitamin D3 (25 Mcg = 1000 Iu)] 1,000 unit PO DAILY Ascorbic Acid [Vitamin C] 500 mg PO DAILY Losartan Potassium 50 mg PO DAILY Insulin Aspart [NovoLOG] See Protocol SQ TID-W/MEALS Levothyroxine Sodium [Synthroid] 50 mcg PO DAILY Isosorbide Mononitrate [Isosorbide Mononitrate ER] 30 mg PO DAILY Insulin Glargine [Lantus] 20 - 30 unit SQ HS Clopidogrel [Plavix] 75 mg PO HS Ondansetron Odt [Zofran ODT] 8 mg PO Q8HR PRN PRN Reason: Nausea Aspirin [[place] Aspirin EC] 81 mg PO DAILY Discharge Medication List Ascorbic Acid [Vitamin C] 500 mg PO DAILY 03/31/18 [History] Cholecalciferol [Vitamin D3 (25 Mcg = 1000 Iu)] 1,000 unit PO DAILY 03/31/18 [History] Cyanocobalamin [Vitamin B-12] 500 mcg PO DAILY 03/31/18 [History] Losartan Potassium 50 mg PO DAILY 03/31/18 [History] Insulin Aspart [NovoLOG] See Protocol SQ TID-W/MEALS 08/01/18 [History] Insulin Glargine [Lantus] 20 - 30 unit SQ HS 10/10/19 [History] Isosorbide Mononitrate [Isosorbide Mononitrate ER] 30 mg PO DAILY 10/10/19 [History] Levothyroxine Sodium [Synthroid] 50 mcg PO DAILY 10/10/19 [History] Clopidogrel [Plavix] 75 mg PO HS 12/05/19 [History] Aspirin [[place] Aspirin EC] 81 mg PO DAILY 01/12/20 [History] Ondansetron Odt [Zofran ODT] 8 mg PO Q8HR PRN 01/12/20 [History] Ampicillin-Sulbactam [Unasyn] 3 gm IVPB Q6HR 10 Days #40 vial 01/19/20 [Rx] Cholestyramine (with Sugar) [Questran Packet] 4 gm PO BID@1000,1800 30 Days #60 packet 01/19/20 [Rx] Enoxaparin [Lovenox] 40 mg SQ DAILY syringe 01/19/20 [Rx] Fluconazole [Diflucan] 200 mg PO DAILY tab 01/22/20 [Rx] Insulin Detemir (Levemir) [Levemir] 20 unit SQ DAILY@0700 syr 01/22/20 [Rx] Mirtazapine [Remeron] 7.5 mg PO HS tab 01/22/20 [Rx] Follow up Appointment(s)/Referral(s): Maciej Correa MD [STAFF PHYSICIAN] - 1 Week Pola Rodriguez MD [Primary Care Provider] - 1-2 days Ryan Garcia MD [STAFF PHYSICIAN] - 1 Week Activity/Diet/Wound Care/Special Instructions: palliative score of 5 Discharge Disposition: TRANSFER TO SNF/ECF
[2020-01-22] MEDS: CHOLESTYRAMINE (WITH SUGAR) 4 GM PACKET PO SCH ×2 (09:07→14:41)
[2020-01-22] MEDS: ENOXAPARIN 40 MG/0.4 ML SYRINGE SQ SCH (09:10)
[2020-01-22] MEDS: ASPIRIN 81 MG PO SCH (09:11)
[2020-01-22] MEDS: FLUCONAZOLE 100 MG TAB PO SCH (09:11)
[2020-01-22] MEDS: ISOSORBIDE MONONITRATE ER 30 MG TAB.ER.24H PO SCH (09:11)
[2020-01-22 09:26] LABS: Anisocytosis Slight; Basophils # (A) 0.1 k/uL (0-0.2); Basophils % (A) 1 %; Eosinophils # (A) 0.3 k/uL (0-0.7); Eosinophils % (A) 3 %; HCT 22.8 % (39.0-53.0); Hypochromasia Marked; Lymphocytes # (A) 1.1 k/uL (1.0-4.8); Lymphocytes % (A) 11 %; MCH 27.4 pg (25.0-35.0); MCHC 29.4 g/dL (31.0-37.0); Mean Platelet Volume 7.1; Monocytes # (A) 0.4 k/uL (0-1.0); Monocytes % (A) 4 %; Neutrophils # (A) 7.5 k/uL (1.3-7.7); Neutrophils % (A) 78 %; Platelet Count 324 k/uL (150-450); RBC 2.46 m/uL (4.30-5.90); RDW 17.5 % (11.5-15.5); WBC 9.7 k/uL (3.8-10.6)
[2020-01-22 09:30] LABS: HGB 6.7 gm/dL (13.0-17.5)
--- NOTE | 2020-01-22 10:04 | P.PN ---
Subjective Progress Note Date: 01/22/20 CHIEF COMPLAINT: Diverticular abscess HISTORY OF PRESENT ILLNESS: Patient is status post CT guided drainage of the diverticular abscess. He reports having bowel movements. No evidence of blood in the stools. Denies any nausea or vomiting. Improvement in his abdominal pain. Patient is afebrile. WBC 9.7 hemoglobin 6.7 patient scheduled for blood transfusion PHYSICAL EXAM: VITAL SIGNS: Reviewed. GENERAL: Well-developed in no acute distress. HEENT: No sclera icterus. Extraocular movements grossly intact. Moist buccal mucosa. Head is atraumatic, normocephalic. ABDOMEN: Soft. Nondistended. Tenderness left lower quadrant. Drainage tube present with purulent output NEUROLOGIC: Alert and oriented. Cranial nerves II through XII grossly intact. ASSESSMENT: 1. Diverticular abscess status post computed tomography scan guided drainage 2. History of bladder cancer followed by oncology PLAN: -Continue antibiotics per ID -Continue regular diet -Continue DVT prophylaxis Lovenox -Patient to follow-up with Dr. Garcia in 1 week after he is discharged Physician Milk Drier note has been reviewed by physician. Signing provider agrees with the documented findings, assessment, and plan of care. Objective - Vital Signs Vital signs: Vital Signs Temp 98.2 F 01/22/20 08:00 Pulse 106 H 01/22/20 08:00 Resp 18 01/22/20 08:00 BP 154/77 01/22/20 08:00 Pulse Ox 99 01/22/20 08:00 Intake & Output 01/21/20 01/22/20 01/22/20 18:59 06:59 18:59 Intake Total 480 100 236 Output Total 0 1600 0 Balance 480 -1500 236 Weight 72.393 kg Intake: Intake, IV Titration 100 Amount Ampicillin-Sulbactam 3 gm 100 In Sodium Chloride 0.9% 100 ml @ 200 mls/hr IVPB Q6HR [facility] Rx#:[id number] Oral 480 236 Output: Drainage 0 0 0 Right Lower Abdomen 0 0 0 Urine 1600 Other: Voiding Method Indwelling Catheter Indwelling Catheter Indwelling Catheter # Bowel Movements 1 - Labs CBC & Chem 7: 01/22/20 08:51 01/21/20 05:26 Labs: Abnormal Lab Results - Last 24 Hours (Table) 01/21/20 01/21/20 01/21/20 Range/Units 11:41 16:55 20:04 RBC (4.30-5.90) m/uL Hgb (13.0-17.5) gm/dL Hct (39.0-53.0) % MCHC (31.0-37.0) g/dL RDW (11.5-15.5) % POC Glucose (mg/dL) 275 H 267 H 166 H (75-99) mg/dL 01/22/20 01/22/20 Range/Units 06:06 08:51 RBC 2.46 L (4.30-5.90) m/uL Hgb 6.7 L* (13.0-17.5) gm/dL Hct 22.8 L (39.0-53.0) % MCHC 29.4 L (31.0-37.0) g/dL RDW 17.5 H (11.5-15.5) % POC Glucose (mg/dL) 143 H (75-99) mg/dL
[2020-01-22 11:49] LABS: Glucose,Whole Blood 189 mg/dL (75-99)
--- NOTE | 2020-01-22 12:56 | CT ---
EXAMINATION TYPE: CT abdomen pelvis wo con DATE OF EXAM: 01/22/2020 COMPARISON: 01/12/2020 INDICATION: Abdominal pain, Abscess drain from 01/14/2020 DLP: 666.2 mGycm, Automated exposure control for dose reduction was used. CONTRAST: 0 mL of Isovue 300. Study performed without Oral Contrast TECHNIQUE: Axial images were obtained from above the diaphragm to the pubic rami in the axial plane a t 5 mm thick sections. Reconstructed images are reviewed on the computer in the coronal plane. FINDINGS: Limited CT sections are obtained the lung bases. The lung bases are clear. CT ABDOMEN: Liver: There is a 2.0 cm cystlike area measuring 22 Hounsfield units superior portion left lobe liver present previously Spleen: Normal Pancreas: Normal Adrenal glands: The adrenal glands are normal. Gallbladder: Normal Kidneys: No masses are evident. Hydronephrosis is present bilaterally, greater on the left. Hydrouret er is present bilaterally and can be traced to the urinary bladder. Multiple bilateral renal stones a re present. These are all nonobstructing and include a 0.8 cm on the lateral upper pole left renal st one, a right 0.2 cm anterior inferior renal stone, a 0.4 cm nonobstructing mid posterior right renal stone, a 0.3 cm posterior upper pole right renal stone, and a 0.5 cm nonobstructing posterior lateral upper pole right renal stone Aorta: Vascular calcification is within the aorta. Inferior vena cava: Normal. CT PELVIS: Minimal free fluid is within the pelvis. Loops of bowel within the abdomen and pelvis are normal. The studies performed without oral contr ast limiting bowel evaluation. Appendix: Not visualized. No suspicious dilated tubular structure inflammatory changes evident. Some minimal fluid is in the paracolic gutter adjacent. Clinical management of any suspected appendicitis will be required. Urinary bladder: Urinary bladder wall is thickened. Small amount of air is present. There is a Landin catheter present. Genitourinary structures: Prostate is normal. Osseous structures: No suspicious lytic or sclerotic lesions. IMPRESSIONS: 1. Minimal free fluid within the abdomen and pelvis. 2. Bilateral hydronephrosis with nonobstructing renal stones. 3. Stable suspected hepatic cyst
--- NOTE | 2020-01-22 13:18 | P.PN ---
Subjective Progress Note Date: 01/22/20 Principal diagnosis: Urothelial carcinoma In follow-up today patient states he has no new complaints, he is feeling at least stable, he does feel that he would benefit from rehabilitation. No fevers, nausea, vomiting, he is passing gas. Objective - Vital Signs Vital signs: Vital Signs Temp 98.2 F 01/22/20 12:00 Pulse 102 H 01/22/20 12:00 Resp 18 01/22/20 12:00 BP 139/80 01/22/20 12:00 Pulse Ox 96 01/22/20 12:00 Intake & Output 01/21/20 01/22/20 01/22/20 18:59 06:59 18:59 Intake Total 480 100 236 Output Total 0 1600 800 Balance 480 -1500 -564 Weight 72.393 kg Intake: Intake, IV Titration 100 Amount Ampicillin-Sulbactam 3 gm 100 In Sodium Chloride 0.9% 100 ml @ 200 mls/hr IVPB Q6HR [facility] Rx#:[id number] Oral 480 236 Blood Product 0 Rc As-1 Unit 0 [id number] Output: Drainage 0 0 0 Right Lower Abdomen 0 0 0 Urine 1600 800 Other: Voiding Method Indwelling Catheter Indwelling Catheter Indwelling Catheter # Bowel Movements 1 - Constitutional General appearance: Present: average body habitus, cooperative, no acute distress - EENT Eyes: Present: anicteric sclerae, EOMI ENT: Present: hearing grossly normal - Respiratory Respiratory: bilateral: CTA, diminished, other (Weak inspiratory effort) - Cardiovascular Rhythm: regular Heart sounds: normal: S1, S2 Abnormal Heart Sounds: Absent: systolic murmur, diastolic murmur, rub, S3 Gallop, S4 Gallop, click, other - Peripheral edema leg Peripheral Edema: bilateral: Trace - Gastrointestinal Gastrointestinal Comment(s): Left abdominal drain noted. Multiple laparoscopic incisions appear to be well approximated, some mild bruising, tenderness-nothing unrealistic, abdomen is not warm to the touch General gastrointestinal: Present: distended, normal bowel sounds - Integumentary Integumentary: Present: pale - Neurologic Neurologic: Present: CNII-XII intact - Musculoskeletal Musculoskeletal: Present: generalized weakness - Psychiatric Psychiatric: Present: A&O x's 3, appropriate affect, intact judgment & insight - Labs CBC & Chem 7: 01/22/20 08:51 01/21/20 05:26 Labs: Abnormal Lab Results - Last 24 Hours (Table) 01/21/20 01/21/20 01/22/20 Range/Units 16:55 20:04 06:06 RBC (4.30-5.90) m/uL Hgb (13.0-17.5) gm/dL Hct (39.0-53.0) % MCHC (31.0-37.0) g/dL RDW (11.5-15.5) % POC Glucose (mg/dL) 267 H 166 H 143 H (75-99) mg/dL Crossmatch 01/22/20 01/22/20 01/22/20 Range/Units 08:51 10:14 11:48 RBC 2.46 L (4.30-5.90) m/uL Hgb 6.7 L* (13.0-17.5) gm/dL Hct 22.8 L (39.0-53.0) % MCHC 29.4 L (31.0-37.0) g/dL RDW 17.5 H (11.5-15.5) % POC Glucose (mg/dL) 189 H (75-99) mg/dL Crossmatch See Detail - Imaging and Cardiology CT scan - abdomen: report reviewed CT scan - pelvis: report reviewed Assessment and Plan (1) Urothelial carcinoma of bladder Current Visit: Yes Status: Acute Priority: High Code(s): C67.9 - MALIGNANT NEOPLASM OF BLADDER, UNSPECIFIED SNOMED Code(s): 282986932 Plan: At this time patient needs to heal from his recent surgical procedure and infection. Recommendation to the patient is to rehabilitate as well as he can, completes his course of antibiotics and to heal up from his surgery. At that time he will follow-up with Dr. Correa to discuss what treatment options there are, prognosis with and without treatment and answer questions that pt and family may have so informed decisions can be made as to how they would like to proceed with a plan of care. Patient verbalized understanding. Contact Information is in the patient's discharge paperwork.
[2020-01-22 15:54] VITALS: BP 157/68; PULSE 101; TEMP 98.6
[2020-01-22 16:57] LABS: Glucose,Whole Blood 117 mg/dL (75-99)
--- NOTE | 2020-01-24 10:25 | CDI ---
Documentation Clarification Form Date: 01/24/20 From: Michelle Bautista Phone: If you have a question about this query, please contact Yessenia Thomas, [employer]ator at [phone] between 8am and 5pm. Admit Date: 01/12/20 Discharge Date: 01/22/20 Patient Name: YEIMI SNOW Visit Number: [id number] ATTENTION: The Clinical Documentation Specialists (CDI) and [facility] Coding Staff appreciate your assistance in clarifying documentation. Please respond to the clarification below the line at the bottom and electronically sign. The CDI & [facility] Coding staff will review the response and follow-up if needed. Please note: Queries are made part of the Legal Health Record. If you have any questions, please contact the author of this message via ITS. Dear Dr. Mian Lyle, The patient presented with the following hypotension, vomiting and tachycardia. Diagnosed with sepsis. Per 01/[address] Zaragoza-acute kidney injury prerenal with a component of acute tubular necrosis currently improved continue with IV fluids. Per Dr Zaragoza's 01/18 PN - Acute kidney injury associated with underlying infectio and acute tubular necrosis, currently improving. 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 coli, Enterococcus faecalis, Alpha Hemolytic Streptococcus Vitals signs on admission: T-97.8, P-113, R-18, BP-64/42, O2 Sat-98 Other Clinical Indicators: Neutrophils-23.4, Plt count-553, D-Dimer-1.62, Cr- 1.70 ID Consult: IV Zoysn 3.375 g every 8 hours, gentle IV hydration Antibiotics: IV Rocephin, IV Zoysn, IV Flagyl, IV Unasyn IV Bolus: yes, Sodium chloride 0.9% In your professional opinion, please clarify if these sepsis was with septic shock or without septic shock and the organism: Sepsis from (name organism) Severe Sepsis without septic shock (name organism) Septic Shock (name organism) Other, please specify Unable to determine Link or clarify if there is associated (due to/with): Organ failure Shock SIRS Criteria (2 or more of the following may indicate SIRS): -Temperature < 96.8F (36C) or > 101.0F (38.3C) -Heart Rate > 90 bpm -Respiratory Rate > 20 breaths/min or PaCO2 < 32 mmHg -White Blood Cell Count > 12,000 or < 4,000 cells/mm3 or > 10% bands -Lactate >2.0 mmol/L (>4.0 is equivalent to septic shock) Severe Sepsis without Septic Shock from a Polymicrobial Source including P. mirabilis, E. coli, and alpha hemolytic strep MTDD
== END 2020-01-22 18:33 | DRG 871 ==
LOC: EC 11:24 → 3SCARD 13:45
PROVIDERS: ADMIT Family Medicine; ATTEND Family Medicine
PROC: 0W9G30Z Drainage of Peritoneal Cavity with Drainage Device, Percutaneous Approach (ICD-10-PCS; principal; 2020-01-12)
PROC: 30233R1 Transfusion of Nonautologous Platelets into Peripheral Vein, Percutaneous Approach (ICD-10-PCS; 2020-01-14)
PROC: 30233N1 Transfusion of Nonautologous Red Blood Cells into Peripheral Vein, Percutaneous Approach (ICD-10-PCS; 2020-01-16)
PROC: 05HC33Z Insertion of Infusion Device into Left Basilic Vein, Percutaneous Approach (ICD-10-PCS; 2020-01-22)
DX: A41.51 Sepsis due to Escherichia coli [E. coli] (principal); K65.1 Peritoneal abscess; N17.0 Acute kidney failure with tubular necrosis; E87.2 Acidosis; C78.5 Secondary malignant neoplasm of large intestine and rectum; K57.20 Diverticulitis of large intestine with perforation and abscess without bleeding; D62 Acute posthemorrhagic anemia; A40.0 Sepsis due to streptococcus, group A; R65.20 Severe sepsis without septic shock; D63.1 Anemia in chronic kidney disease; C67.9 Malignant neoplasm of bladder, unspecified; N18.3 Chronic kidney disease, stage 3 (moderate); E11.22 Type 2 diabetes mellitus with diabetic chronic kidney disease; Z79.4 Long term (current) use of insulin; I95.9 Hypotension, unspecified; I12.9 Hypertensive chronic kidney disease with stage 1 through stage 4 chronic kidney disease, or unspecified chronic kidney disease; I25.10 Atherosclerotic heart disease of native coronary artery without angina pectoris; E03.9 Hypothyroidism, unspecified; E86.0 Dehydration; E87.5 Hyperkalemia; N13.9 Obstructive and reflux uropathy, unspecified; R31.9 Hematuria, unspecified; K66.0 Peritoneal adhesions (postprocedural) (postinfection); I49.3 Ventricular premature depolarization; K59.00 Constipation, unspecified; I45.10 Unspecified right bundle-branch block; Z79.82 Long term (current) use of aspirin; Z79.02 Long term (current) use of antithrombotics/antiplatelets; Z79.890 Hormone replacement therapy; Z79.899 Other long term (current) drug therapy; Z87.891 Personal history of nicotine dependence; Z87.39 Personal history of other diseases of the musculoskeletal system and connective tissue; Z98.890 Other specified postprocedural states; Z88.5 Allergy status to narcotic agent; Z88.1 Allergy status to other antibiotic agents; Z91.041 Radiographic dye allergy status
CPT/HCPCS: 36410; 36415; 71046; 74018; 74176; 75989; 76937; 77012; 78582; 80048; 80053; 81001; 82607; 82668; 82728; 83540; 83550; 83605; 83615; 83735; 83921; 84484; 85025; 85045; 85379; 85610; 85730; 86850; 86900; 86901; 86920; 87040; 87070; 87075; 87077; 87086; 87102; 87116; 87186; 87205; 87206; 88108; 88305; 93005; 94760; 94762; 96361; 96365; 96366; 96375; 96376; 99291

== ENCOUNTER 2020-01-30 03:07 | Inpatient (IN) | payer MEDICARE ==
[2020-01-30 04:14] LABS: Anisocytosis Slight; Basophils # (A) 0.1 k/uL (0-0.2); Basophils % (A) 1 %; Eosinophils # (A) 0.5 k/uL (0-0.7); Eosinophils % (A) 6 %; HCT 21.4 % (39.0-53.0); Hypochromasia Marked; Lymphocytes # (A) 1.7 k/uL (1.0-4.8); Lymphocytes % (A) 21 %; MCH 28.6 pg (25.0-35.0); MCHC 30.4 g/dL (31.0-37.0); Mean Platelet Volume 7.6; Monocytes # (A) 0.4 k/uL (0-1.0); Monocytes % (A) 5 %; Neutrophils # (A) 5.4 k/uL (1.3-7.7); Neutrophils % (A) 64 %; Platelet Count 470 k/uL (150-450); RBC 2.28 m/uL (4.30-5.90); RDW 17.1 % (11.5-15.5); WBC 8.4 k/uL (3.8-10.6)
[2020-01-30 04:17] LABS: Albumin 2.9 g/dL (3.5-5.0); Calcium 8.6 mg/dL (8.4-10.2); Potassium 4.2 mmol/L (3.5-5.1); Total Bilirubin 0.3 mg/dL (0.2-1.3); Total Protein 5.8 g/dL (6.3-8.2)
[2020-01-30 05:06] LABS: HGB 6.5 gm/dL (13.0-17.5)
[2020-01-30] MEDS ORDERED: NALOXONE 0.4 MG/ML 1 ML VIAL IV PRN (05:23)
--- NOTE | 2020-01-30 07:02 | ED ---
General Adult HPI - General Chief complaint: Recheck/Abnormal Lab/Rx Stated complaint: abnormal labs Time Seen by Provider: 01/30/20 03:17 Source: patient, EMS Mode of arrival: EMS Limitations: no limitations - History of Present Illness Initial comments: Edwin is an 79-year-old male with what he reports a history of bowel and bladder cancer, chronic recurrent anemia, patient is brought to the ER this morning by EMS after outpatient labs revealed worsening anemia with a hemoglobin of 6.7 and need for transfusion. Patient reports he was sleeping comfortably in bed with no complaints with the use woken up and advised that he was coming to the hospital for blood. Patient does report fatigue no other Complaints. - Related Data Home Medications Medication Instructions Recorded Confirmed Ascorbic Acid [Vitamin C] 500 mg PO DAILY@89903/31/18 01/30/20 Cholecalciferol [Vitamin D3 (25 1,000 unit PO DAILY@89903/31/18 01/30/20 Mcg = 1000 Iu)] Cyanocobalamin [Vitamin B-12] 500 mcg PO DAILY@89903/31/18 01/30/20 Losartan Potassium 50 mg PO DAILY@89903/31/18 01/30/20 Insulin Aspart [NovoLOG] See Protocol SQ AC-TID 08/01/18 01/30/20 Isosorbide Mononitrate [Isosorbide 30 mg PO DAILY@89910/10/19 01/30/20 Mononitrate ER] Levothyroxine Sodium [Synthroid] 50 mcg PO DAILY@59910/10/19 01/30/20 Clopidogrel [Plavix] 75 mg PO HS@2100 12/05/19 01/30/20 Aspirin [Larue Aspirin EC] 81 mg PO DAILY@89901/12/20 01/30/20 Acetaminophen Tab [Tylenol] 650 mg PO Q4H PRN 01/30/20 01/30/20 Ampicillin-Sulbactam [Unasyn] 3 gm IVPB Q6H 01/30/20 01/30/20 Calcium Carbonate [Tums] 1,000 mg PO Q6H PRN 01/30/20 01/30/20 Enoxaparin [Lovenox] 40 mg SQ DAILY@89901/30/20 01/30/20 Fluconazole [Diflucan] 200 mg PO DAILY@0901/30/20 01/30/20 Insulin Glargine,Hum.rec.anlog 20 unit SQ BID@0900,209901/30/20 01/30/20 [Basaglar Kwikpen U-100] Mirtazapine [Remeron] 15 mg PO HS@209901/30/20 01/30/20 Ondansetron HCl [Zofran] 8 mg PO Q8H PRN 01/30/20 01/30/20 Previous Rx's Medication Instructions Recorded Cholestyramine (with Sugar) 4 gm PO BID@1000,1800 30 Days #60 01/19/20 [Questran Packet] packet Allergies Allergy/AdvReac Type Severity Reaction Status Date / Time ciprofloxacin [From Cipro] Allergy Swelling Verified 01/30/20 07:18 propoxyphene [From Darvon] Allergy Hallucinati Verified 01/30/20 07:18 ons Iodinated Contrast Media AdvReac Dyspnea Verified 01/30/20 07:18 [Iodinated Contrast- Oral and IV Dye] Review of Systems ROS Statement: Those systems with pertinent positive or pertinent negative responses have been documented in the HPI. ROS Other: All systems not noted in ROS Statement are negative. Past Medical History Past Medical History: Cancer, Chest Pain / Angina, Diabetes Mellitus, Hypertension Additional Past Medical History / Comment(s): shortness of breath, bowel and bladder ca History of Any Multi-Drug Resistant Organisms: None Reported Past Surgical History: Back Surgery Additional Past Surgical History / Comment(s): hand surgery. back surgery with 4 screws and 2 rods Past Anesthesia/Blood Transfusion Reactions: No Reported Reaction Additional Past Anesthesia/Blood Transfusion Reaction / Comment(s): son allergic to one type of anesthesia Past Psychological History: No Psychological Hx Reported Smoking Status: Never smoker Past Alcohol Use History: None Reported Past Drug Use History: None Reported - Past Family History Mother Family Medical History: Unable to Obtain Additional Family Medical History / Comment(s): adopted General Exam - General Exam Comments Initial Comments: Physical Exam GENERAL: Chronically ill appearing HENT: Normocephalic, Atraumatic. EYES: PERRL, EOMI Conjunctival pallor PULMONARY: Unlabored respirations. CARDIOVASCULAR: RRR ABDOMEN: Non-distended SKIN: Pale : Deferred NEUROLOGIC: Alert and oriented Normal speech Normal gait MUSCULOSKELETAL: Moving all extremities with no apparent injury PSYCHIATRIC: Agitation that he is here No SI/HI Limitations: no limitations Course Vital Signs 01/30/20 01/30/20 01/30/20 03:13 05:10 05:20 Temperature 98.3 F 98.2 F 97.6 F Pulse Rate 94 86 91 Respiratory 18 18 16 Rate Blood Pressure 138/71 116/60 135/75 O2 Sat by Pulse 99 100 Oximetry 01/30/20 01/30/20 01/30/20 05:50 06:00 06:30 Temperature 97.6 F Pulse Rate 90 92 92 Respiratory 18 18 16 Rate Blood Pressure 148/71 142/78 144/78 O2 Sat by Pulse 97 100 98 Oximetry Medical Decision Making - Medical Decision Making Patient was seen and evaluated, history obtained from patient Patient with history of recurrent anemia due to chronic GI losses related to cancer Labs with multiple abnormalities - worsening anemia, Troponin elevated likely related to demand ischemia Transfusion ordered Patient to be admitted, admission plan was discussed with Dr. Carrillo who agrees to admission - Lab Data Result diagrams: 01/30/20 03:56 01/30/20 03:56 Lab Results 01/30/20 01/30/20 01/30/20 Range/Units 03:56 03:56 03:56 WBC 8.4 (3.8-10.6) k/uL RBC 2.28 L (4.30-5.90) m/uL Hgb 6.5 L* (13.0-17.5) gm/dL Hct 21.4 L (39.0-53.0) % MCV 94.0 (80.0-100.0) fL MCH 28.6 (25.0-35.0) pg MCHC 30.4 L (31.0-37.0) g/dL RDW 17.1 H (11.5-15.5) % Plt Count 470 H (150-450) k/uL Neutrophils % 64 % Lymphocytes % 21 % Monocytes % 5 % Eosinophils % 6 % Basophils % 1 % Neutrophils # 5.4 (1.3-7.7) k/uL Lymphocytes # 1.7 (1.0-4.8) k/uL Monocytes # 0.4 (0-1.0) k/uL Eosinophils # 0.5 (0-0.7) k/uL Basophils # 0.1 (0-0.2) k/uL Hypochromasia Marked Anisocytosis Slight APTT (22.0-30.0) sec Sodium 137 (137-145) mmol/L Potassium 4.2 (3.5-5.1) mmol/L Chloride 106 (98-107) mmol/L Carbon Dioxide 26 (22-30) mmol/L Anion Gap 5 mmol/L BUN 10 (9-20) mg/dL Creatinine 1.33 H (0.66-1.25) mg/dL Est GFR (CKD-EPI)AfAm 58 (>60 ml/min/1.73 sqM) Est GFR (CKD-EPI)NonAf 50 (>60 ml/min/1.73 sqM) Glucose 95 (74-99) mg/dL Plasma Lactic Acid Alex 1.0 (0.7-2.0) mmol/L Calcium 8.6 (8.4-10.2) mg/dL Total Bilirubin 0.3 (0.2-1.3) mg/dL AST 22 (17-59) U/L ALT 11 (4-49) U/L Alkaline Phosphatase 79 (38-126) U/L Troponin I (0.000-0.034) ng/mL Total Protein 5.8 L (6.3-8.2) g/dL Albumin 2.9 L (3.5-5.0) g/dL Blood Type Blood Type Recheck Bld Type Recheck Status Antibody Screen Crossmatch Spec Expiration Date 01/30/20 01/30/20 01/30/20 Range/Units 03:56 04:23 04:23 WBC (3.8-10.6) k/uL RBC (4.30-5.90) m/uL Hgb (13.0-17.5) gm/dL Hct (39.0-53.0) % MCV (80.0-100.0) fL MCH (25.0-35.0) pg MCHC (31.0-37.0) g/dL RDW (11.5-15.5) % Plt Count (150-450) k/uL Neutrophils % % Lymphocytes % % Monocytes % % Eosinophils % % Basophils % % Neutrophils # (1.3-7.7) k/uL Lymphocytes # (1.0-4.8) k/uL Monocytes # (0-1.0) k/uL Eosinophils # (0-0.7) k/uL Basophils # (0-0.2) k/uL Hypochromasia Anisocytosis APTT 19.3 L (22.0-30.0) sec Sodium (137-145) mmol/L Potassium (3.5-5.1) mmol/L Chloride (98-107) mmol/L Carbon Dioxide (22-30) mmol/L Anion Gap mmol/L BUN (9-20) mg/dL Creatinine (0.66-1.25) mg/dL Est GFR (CKD-EPI)AfAm (>60 ml/min/1.73 sqM) Est GFR (CKD-EPI)NonAf (>60 ml/min/1.73 sqM) Glucose (74-99) mg/dL Plasma Lactic Acid Alex (0.7-2.0) mmol/L Calcium (8.4-10.2) mg/dL Total Bilirubin (0.2-1.3) mg/dL AST (17-59) U/L ALT (4-49) U/L Alkaline Phosphatase (38-126) U/L Troponin I 0.190 H* (0.000-0.034) ng/mL Total Protein (6.3-8.2) g/dL Albumin (3.5-5.0) g/dL Blood Type A Positive Blood Type Recheck A Pos Bld Type Recheck Status No Antibody Screen NEGATIVE Crossmatch See Detail Spec Expiration Date 02/02/2020 2359 Disposition Clinical Impression: Anemia, Elevated troponin Disposition: ADMITTED IP TO THIS [facility] Condition: Serious Is patient prescribed a controlled substance at d/c from ED?: No
[2020-01-30] MEDS ORDERED: ONDANSETRON 4 MG TAB PO PRN (10:25)
[2020-01-30] MEDS ORDERED: AMPICILLIN-SULBACTAM 3 GM VIAL IVPB SCH (10:30)
[2020-01-30 11:13] LABS: Glucose,Whole Blood 112 mg/dL (75-99)
[2020-01-30] MEDS: INSULIN DETEMIR (LEVEMIR) 100 UNIT/ML SYR SQ SCH ×2 (11:18→21:55)
[2020-01-30] MEDS: FLUCONAZOLE 100 MG TAB PO SCH (12:17)
[2020-01-30] MEDS: CHOLESTYRAMINE (WITH SUGAR) 4 GM PACKET PO SCH ×2 (12:17→18:25)
[2020-01-30] MEDS: INSULIN ASPART (NovoLOG) 100 UNIT/ML VIAL SQ SCH ×3 (12:18→21:55)
[2020-01-30] MEDS: LEVOTHYROXINE 50 MCG TAB PO SCH (13:30)
[2020-01-30] MEDS: LOSARTAN 50 MG TAB PO SCH (13:30)
[2020-01-30] MEDS: ACETAMINOPHEN TAB 325 MG TAB PO PRN (13:39)
[2020-01-30] MEDS: AMPICILLIN-SULBACTAM 3 GM in SODIUM CHLORIDE 0.9% 100 ML IVPB SCH ×2 (13:40→18:26)
[2020-01-30] MEDS: ISOSORBIDE MONONITRATE ER 30 MG TAB.ER.24H PO SCH (13:40)
[2020-01-30] MEDS: ENOXAPARIN 40 MG/0.4 ML SYRINGE SQ SCH (13:40)
[2020-01-30 15:34] VITALS: BMI 25.8
[2020-01-30 16:46] LABS: Glucose,Whole Blood 163 mg/dL (75-99)
--- NOTE | 2020-01-30 18:49 | P.HPIM ---
History of Present Illness H&P Date: 01/30/20 Chief Complaint: Normal hemoglobin History of presenting complaint: This is a 79-year-old patient resident of [facility], before by Dr. Pola Rodriguez. Chronic stable medical conditions include diabetes, chronic kidney disease, coronary artery disease with stent, hypertension, kidney stones bowel and bladder cancer. On December 07 patient had a cystoscopy that showed severe hemorrhagic cystitis. He's had prior back surgery and is also had surgery for his cancer and bladder. Patient states she is woken up early also this morning and EMS was called because hemoglobin was low. Possibly patient been having dark stools unclear. Patient not sure about the history. No chest pain or shortness of breath no fever no chills. Patient does feel weak and tired. 1 unit of blood was ordered. Review of systems: GEN.: Tired EYES: None HEENT: None NECK: None RESPIRATORY: None CARDIOVASCULAR: None GASTROINTESTINAL: None GENITOURINARY: None MUSCULOSKELETAL: [Joint pains LYMPHATICS: None HEMATOLOGICAL: None PSYCHIATRY: None NEUROLOGICAL: None Past medical history to include: Diabetes, hypertension, bowel and bladder cancer, kidney stones coronary artery with stent hypothyroid, chronic kidney disease stage III, hypertensive kidney disease Social history: Currently at resident of [facility]. No alcohol. Smoked for over 30 years stopped in 1990. Family history: Patient is adopted Physical examination: VITAL SIGNS: 98.3, 94, 18, 138/71, 99% room air GENERAL: BMI 25.8, laying in bed, awake. EYES: [Pupils equal. Conjunctiva pale. HEENT: External appearance of nose and ears normal, oral cavity grossly normal. NECK: JVD not raised; masses not palpable. HEART: First and second heart sounds are normal; no edema. LUNGS: Respiratory rate normal; clear to auscultation. ABDOMEN: Soft, nontender, liver spleen not palpable, no masses palpable. PSYCH: Alert and oriented x3; mood and affect normal. MUSCULAR skeletal: Evidence of always patient in the hands NEUROLOGICAL: Cranial nerves grossly intact; no facial asymmetry, power and sensation grossly intact. LYMPHATICS: No lymph nodes palpable in the axilla and neck INVESTIGATIONS, reviewed in the clinical context: White count 8.4 hemoglobin 6.5 platelets 470 potassium 4.2 creatinine 1.33 Troponin I 0.190 Assessment: -Acute severe anemia. Possible GI bleed -Bilateral left frontal leads yeses -Coronary artery disease with stent -Diabetes mellitus type 2 -Essential hypertension -Hypothyroid -Chronic kidney disease stage III from kidney stones -Hypertensive kidney disease -Chronic bilateral hydronephrosis Plan: 1 unit of blood was out of this morning. GI was consulted. Home medications resumed. Hold off aspirin and Plavix for now. Repeat hemoglobin in the morning. Past Medical History Past Medical History: Cancer, Chest Pain / Angina, Diabetes Mellitus, Hype rtension Additional Past Medical History / Comment(s): shortness of breath, bowel and bladder ca History of Any Multi-Drug Resistant Organisms: None Reported Past Surgical History: Back Surgery Additional Past Surgical History / Comment(s): hand surgery. back surgery with 4 screws and 2 rods currently had surgery for cancer on bladder on on the outside of his colon, has drain to LLQ abdomen Past Anesthesia/Blood Transfusion Reactions: No Reported Reaction Additional Past Anesthesia/Blood Transfusion Reaction / Comment(s): son allergic to one type of anesthesia Past Psychological History: No Psychological Hx Reported Smoking Status: Former smoker Past Alcohol Use History: None Reported Additional Past Alcohol Use History / Comment(s): quit 1990 smoked 30+ years on and off Past Drug Use History: None Reported - Past Family History Mother Family Medical History: Unable to Obtain Additional Family Medical History / Comment(s): adopted Medications and Allergies Home Medications Medication Instructions Recorded Confirmed Type Ascorbic Acid [Vitamin C] 500 mg PO DAILY@89903/31/18 01/30/20 History Cholecalciferol [Vitamin D3 (25 1,000 unit PO DAILY@89903/31/18 01/30/20 Histo ry Mcg = 1000 Iu)] Cyanocobalamin [Vitamin B-12] 500 mcg PO DAILY@89903/31/18 01/30/20 History Losartan Potassium 50 mg PO DAILY@89903/31/18 01/30/20 History Insulin Aspart [NovoLOG] See Protocol SQ AC-TID 08/01/18 01/30/20 History Isosorbide Mononitrate [Isosorbide 30 mg PO DAILY@89910/10/19 01/30/20 History Mononitrate ER] Levothyroxine Sodium [Synthroid] 50 mcg PO DAILY@0610/10/19 01/30/20 History Clopidogrel [Plavix] 75 mg PO HS@2100 12/05/19 01/30/20 History Aspirin [Republic Aspirin EC] 81 mg PO DAILY@0900 01/12/20 01/30/20 History Cholestyramine (with Sugar) 4 gm PO BID@1000,1800 30 Days #60 01/19/20 01/30/20 Rx [Questran Packet] packet Acetaminophen Tab [Tylenol] 650 mg PO Q4H PRN 01/30/20 01/30/20 History Ampicillin-Sulbactam [Unasyn] 3 gm IVPB Q6H 01/30/20 01/30/20 History Calcium Carbonate [Tums] 1,000 mg PO Q6H PRN 01/30/20 01/30/20 History Enoxaparin [Lovenox] 40 mg SQ DAILY@89901/30/20 01/30/20 History Fluconazole [Diflucan] 200 mg PO DAILY@89901/30/20 01/30/20 History Insulin Glargine,Hum.rec.anlog 20 unit SQ BID@0900,2100 01/30/20 01/30/20 History [Basaglar Nazia U-100] Mirtazapine [Remeron] 15 mg PO HS@209901/30/20 01/30/20 History Ondansetron HCl [Zofran] 8 mg PO Q8H PRN 01/30/20 01/30/20 History Allergies Allergy/AdvReac Type Severity Reaction Status Date / Time ciprofloxacin [From Cipro] Allergy Swelling Verified 01/30/20 07:18 propoxyphene [From Darvon] Allergy Hallucinati Verified 01/30/20 07:18 ons Iodinated Contrast Media AdvReac Dyspnea Verified 01/30/20 07:18 [Iodinated Contrast- Oral and IV Dye] Physical Exam Vitals: Vital Signs Temp Pulse Resp BP Pulse Ox 01/30/20 08:09 99.0 F 70 18 149/75 99 01/30/20 08:03 99.0 F 70 18 149/75 99 01/30/20 06:30 92 16 144/78 98 01/30/20 06:00 92 18 142/78 100 01/30/20 05:50 97.6 F 90 18 148/71 97 01/30/20 05:20 97.6 F 91 16 135/75 01/30/20 05:10 98.2 F 86 18 116/60 100 01/30/20 03:13 98.3 F 94 18 138/71 99 Intake and Output 01/29/20 01/30/20 01/30/20 22:59 06:59 14:59 Intake Total 0 310 Balance 0 310 Intake: Blood Product 0 310 Rc As-1 Unit 0 310 [id number] Other: Voiding Method Indwelling Catheter Weight 74.843 kg 74.843 kg Results CBC & Chem 7: 01/30/20 03:56 01/30/20 03:56 Labs: Abnormal Lab Results - Last 24 Hours (Table) 01/30/20 01/30/20 01/30/20 Range/Units 03:56 03:56 03:56 RBC 2.28 L (4.30-5.90) m/uL Hgb 6.5 L* (13.0-17.5) gm/dL Hct 21.4 L (39.0-53.0) % MCHC 30.4 L (31.0-37.0) g/dL RDW 17.1 H (11.5-15.5) % Plt Count 470 H (150-450) k/uL APTT (22.0-30.0) sec Creatinine 1.33 H (0.66-1.25) mg/dL Troponin I (0.000-0.034) ng/mL Total Protein 5.8 L (6.3-8.2) g/dL Albumin 2.9 L (3.5-5.0) g/dL Crossmatch See Detail 01/30/20 01/30/20 Range/Units 04:23 04:23 RBC (4.30-5.90) m/uL Hgb (13.0-17.5) gm/dL Hct (39.0-53.0) % MCHC (31.0-37.0) g/dL RDW (11.5-15.5) % Plt Count (150-450) k/uL APTT 19.3 L (22.0-30.0) sec Creatinine (0.66-1.25) mg/dL Troponin I 0.190 H* (0.000-0.034) ng/mL Total Protein (6.3-8.2) g/dL Albumin (3.5-5.0) g/dL Crossmatch Thrombosis Risk Factor Assmnt - Choose All That Apply Each Factor Represents 1 point: Medical pt on bed rest Each Risk Factor Represents 2 Points: Patient confined to bed, Malignancy Each Risk Factor Represents 3 Points: Age 75 years or older Other congenital or acquired thrombophilia - If yes, enter type in comment: No Thrombosis Risk Factor Assessment Total Risk Factor Score: 8 Thrombosis Risk Factor Assessment Level: High Risk
[2020-01-30] MEDS: MIRTAZAPINE 15 MG TAB PO SCH (20:11)
[2020-01-30] MEDS: PANTOPRAZOLE 40 MG TABLET PO SCH (20:11)
[2020-01-30 20:58] LABS: Glucose,Whole Blood 171 mg/dL (75-99)
[2020-01-30] MEDS ORDERED: CLOPIDOGREL 75 MG TAB PO SCH (21:00)
--- NOTE | 2020-01-30 21:11 | CONS ---
CONSULTATION DATE OF DICTATION: 01/30/2020 REASON FOR CONSULTATION: Severe anemia and black tarry stools. HISTORY OF PRESENT ILLNESS: The patient is an 79-year-old pleasant white male who came to the emergency room because of severe anemia and a hemoglobin of 6.7 that was noted on outpatient labs yesterday. [facility] the [facility] living for blood transfusion. He denies any abdominal pain, reports no nausea, vomiting. Has been complaining of black tarry stools for the last several days' duration. He was just admitted to the hospital 2 weeks ago for a diverticular abscess, at which time he had a CT-guided drain for the diverticular abscess performed, and the catheter is still in place. He was supposed to follow with Dr. Garcia on an outpatient basis. Prior to that the patient had a hospitalization in November of 2019 with severe hematuria. He was seen by Dr. Esteban and recently was evaluated by Dr. Correa for diagnosis of high-grade urothelial carcinoma of the bladder that was diagnosed on cystoscopy during his past admission on December 13, 2019. 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 He does complain of diffuse abdominal pain. He reports no nausea, vomiting. He had one black tarry bowel movement this morning. He did have EGD and colonoscopy on October 11, 2019, by me that showed mild gastritis, small duodenal polyp and moderate left-sided diverticulosis noted. PAST MEDICAL HISTORY: His past medical history is significant for recently diagnosed high-grade uroepithelial carcinoma, for which Dr. Correa is following the patient closely, recent diverticular abscess, for which he has had a CT-guided drainage catheter placement and is currently on antibiotics. He has history of hypertension, hypercholesteremia, hypothyroidism, anxiety, depression. MEDICATIONS: Medications at home include Plavix, aspirin, Tylenol, Unasyn, Tums, Lovenox, Diflucan, Remeron, Zofran, vitamin C, vitamin D3, vitamin B12, Losartan, NovoLog, Isordil, levothyroxine. ALLERGIES: CIPRO, DARVON, IV DYE. PAST SURGICAL HISTORY: Back surgery, hand surgery. SOCIAL HISTORY: No smoking. No alcohol use. FAMILY HISTORY: He was adopted. REVIEW OF SYSTEMS: CARDIOPULMONARY: No chest pain or shortness of breath. GENITOURINARY: No dysuria or hematuria. MUSCULOSKELETAL: Unremarkable. SKIN: Unremarkable. ENDOCRINE: Unremarkable. PSYCHIATRIC: Unremarkable. ENT/VISION: Unremarkable. CONSTITUTIONAL: No recent weight loss. No fever, chills, night sweats. GI: As mentioned above. PHYSICAL EXAMINATION: He appears comfortable. No apparent distress. Vital signs are stable. Blood pressure is 144/62, afebrile, pulse rate 89. HEENT examination unremarkable. Conjunctivae pink. Sclerae anicteric. Oral cavity no lesions. NECK: No JVD or lymph node enlargement. CHEST: Clear to auscultation. HEART: Regular rate and rhythm. ABDOMEN: Soft. It was slightly tender diffusely all over the abdomen. Catheter in place. Drainage catheter in place in the left lower quadrant area. EXTREMITIES: No pedal edema. SKIN: No rashes. NEUROLOGIC: Alert and oriented x3. No focal deficits. LABS: WBC 8.4, hemoglobin 6.5, platelets 470. Hemoglobin last week at the time of discharge from the hospital was 7.2. Prior to that in November it was 11.5 g/dL. PT and INR within normal limits. AST, ALT, T-bilirubin, alkaline phosphatase are normal. BUN and creatinine are 10 and 1.33. Troponin 0.190. IMPRESSION: 1. Severe symptomatic anemia with a hemoglobin of 6.5 g/dL. Patient states that he has been having black tarry stools for the last few weeks' duration. His hemoglobin in November was 11.5 and a week ago it was 7.5 g/dL. Most likely anemia is multifactorial in etiology, probably anemia of chronic disease, but the possibility of superimposed acute upper GI bleed cannot be excluded. He did have an upper endoscopy in September of this year that showed mild gastritis and a small duodenal polyp. 2. Recent episode of diverticular abscess, status post CT-guided drainage of the abscess with the catheter still in place. Presently on broad-spectrum antibiotics. 3. Recently diagnosed bladder cancer, for which Dr. Correa is following the patient closely. 4. History of hypertension. 5. Diabetes mellitus. 6. Hypercholesterolemia. RECOMMENDATIONS: 1. Continue with broad-spectrum antibiotics. 2. Start Protonix 40 mg daily. 3. Will proceed with an upper endoscopy tomorrow to rule out upper GI source of bleeding. 4. Agree with PRBC transfusion. 5. Repeat labs in the morning. 6. Will follow with you closely. Thank you for this consultation. MMODL / IJN: [id number] /
[2020-01-31] MEDS: AMPICILLIN-SULBACTAM 3 GM in SODIUM CHLORIDE 0.9% 100 ML IVPB SCH ×4 (01:01→17:45)
[2020-01-31] MEDS: ACETAMINOPHEN TAB 325 MG TAB PO PRN ×2 (01:03→17:45)
[2020-01-31] MEDS: LEVOTHYROXINE 50 MCG TAB PO SCH (05:27)
[2020-01-31 06:50] LABS: Glucose,Whole Blood 55 mg/dL (75-99)
[2020-01-31] MEDS ORDERED: DEXTROSE 50% SYRINGE 50 ML IVP STA ×2 (06:52→11:38)
[2020-01-31] MEDS: INSULIN ASPART (NovoLOG) 100 UNIT/ML VIAL SQ SCH ×4 (07:26→22:08)
[2020-01-31 07:28] LABS: Glucose,Whole Blood 155 mg/dL (75-99)
[2020-01-31] MEDS ORDERED: ASPIRIN 81 MG PO SCH (09:00)
[2020-01-31] MEDS: LOSARTAN 50 MG TAB PO SCH (09:20)
[2020-01-31] MEDS: ASCORBIC ACID 500 MG TAB PO SCH (10:24)
[2020-01-31] MEDS: PANTOPRAZOLE 40 MG TABLET PO SCH ×2 (10:24→17:45)
[2020-01-31] MEDS: ISOSORBIDE MONONITRATE ER 30 MG TAB.ER.24H PO SCH (10:25)
[2020-01-31] MEDS: CHOLESTYRAMINE (WITH SUGAR) 4 GM PACKET PO SCH ×2 (10:25→17:39)
[2020-01-31] MEDS: INSULIN DETEMIR (LEVEMIR) 100 UNIT/ML SYR SQ SCH ×2 (10:25→22:09)
[2020-01-31] MEDS: FLUCONAZOLE 100 MG TAB PO SCH (10:25)
[2020-01-31] MEDS: ENOXAPARIN 40 MG/0.4 ML SYRINGE SQ SCH (10:25)
[2020-01-31] MEDS: CYANOCOBALAMIN 500 MCG TAB PO SCH (10:25)
[2020-01-31] MEDS ORDERED: DEXTROSE 50% SYRINGE 50 ML IVP ONE (11:39)
[2020-01-31 11:41] LABS: Glucose,Whole Blood 50 mg/dL (75-99)
[2020-01-31 12:04] LABS: Glucose,Whole Blood 147 mg/dL (75-99)
[2020-01-31] MEDS ORDERED: PROPOFOL 10 MG/ML 20 ML VIAL IV ONE (12:11)
[2020-01-31] MEDS ORDERED: LIDOCAINE 1% INJ 10MG/ML (20 ML MDV) ONE (12:11)
[2020-01-31] MEDS ORDERED: IV FLUID CONTINUATION 100 ML IV ONE (12:16)
[2020-01-31 12:18] LABS: Anisocytosis Slight; Basophils # (A) 0.1 k/uL (0-0.2); Basophils % (A) 1 %; Eosinophils # (A) 0.2 k/uL (0-0.7); Eosinophils % (A) 2 %; Hypochromasia Marked; Lymphocytes # (A) 1.2 k/uL (1.0-4.8); Lymphocytes % (A) 14 %; MCH 28.5 pg (25.0-35.0); MCHC 30.2 g/dL (31.0-37.0); MCV 94.2 fL (80.0-100.0); Monocytes # (A) 0.5 k/uL (0-1.0); Monocytes % (A) 5 %; Neutrophils # (A) 6.3 k/uL (1.3-7.7); Neutrophils % (A) 76 %; Platelet Count 440 k/uL (150-450); Poikilocytosis Slight; RBC 3.08 m/uL (4.30-5.90); RDW 16.1 % (11.5-15.5); WBC 8.3 k/uL (3.8-10.6)
[2020-01-31 12:23] LABS: HGB 8.8 gm/dL (13.0-17.5)
--- NOTE | 2020-01-31 12:31 | P.PCN ---
Date of Procedure: 01/31/20 Procedure(s) Performed: BRIEF HISTORY: Patient is a 79-year-old, pleasant, white male admitted hospital with severe symptomatic anemia and hemoglobin of 6.5 g/dL requiring 1 unit of blood transfusion. He had been having some intermittent dark-colored stools for the last few weeks. His and scheduled for an upper endoscopy to evaluate further.. PROCEDURE PERFORMED: Esophagogastroduodenoscopy with injection epinephrine and cautery with gold probe and biopsy. PREOPERATIVE DIAGNOSIS: Severe symptomatic anemia and black stools. IV sedation per anesthesia. PROCEDURE: After informed consent was obtained, the patient was brought into the endoscopy unit. IV sedation was administered by Anesthesia under continuous monitoring. Initially the Olympus GIF-140 video endoscope was inserted into the mouth. Esophagus intubated without any difficulty. It was gradually advanced into the stomach and duodenum and carefully examined. The bulb of the duodenum there was a 2 cm deep ulceration along the duodenal sweep with a small clot and oozing identified. Initially I injected 1 in 10,000 epinephrine and total of 5 mL was injected following which there was good hemostasis. Fundus using a gold cautery was performed at the site of oozing. Good hemostasis was achieved. The The second part of the duodenum appeared normal. The scope at this time was withdrawn to the stomach, adequately insufflated with air, and upon careful examination, mucosa of the antrum had mild gastritis and biopsies were done from this area. The, body, cardia and the fundus appeared normal. The scope was then withdrawn into the esophagus. The GE junction was located at 39 cm from the incisors. The esophagus appeared normal. There were no erosions or ulcerations seen and the patient tolerated the procedure well. IMPRESSION: 1. 2 cm deep ulceration in the duodenal bulb along the duodenal sweep with a small clot and oozing status post injection epinephrine followed by cautery with good hemostasis. 2. Antral Gastritis. RECOMMENDATIONS: The findings of this examination were discussed with the patient. She'll be started on Protonix 40 mg twice daily. Remain on a clear liquid diet for today. Monitor CBC on a daily basis.
[2020-01-31] MEDS ORDERED: EPINEPHrine 10 ML SYRINGE (0.1 MG/ML) MISCELLANE ONE (12:38)
--- NOTE | 2020-01-31 15:21 | P.GSCN ---
History of Present Illness Consult date: 01/31/20 History of present illness: CHIEF COMPLAINT: Anemia HISTORY OF PRESENT ILLNESS: This is a 79-year-old male with a known past medical history of diabetes, chronic kidney disease, coronary artery disease with stent, hypertension, bowel and bladder cancer. He had recent hospitalization with diverticular abscess and had a undergo CT-guided drainage. He still has the dr quiroz bag in place and had been on IV antibiotics. Patient was currently residing at an [facility]. He was awake and early in the morning and was told his hemoglobin was low and was brought into the hospital via EMS. Patient has been reporting black tarry stools. Hemoglobin 6.5. He did receive blood transfusions. And underwent EGD today with Dr. Andres. Patient denies any fever, chills, sweats, nausea or vomiting. PAST MEDICAL HISTORY: See list. PAST SURGICAL HISTORY: See list. MEDICATIONS: See list. ALLERGIES: See list. SOCIAL HISTORY: No illicit drug use. REVIEW OF SYSTEMS: CONSTITUTIONAL: Denies fever or chills. HEENT: Denies blurred vision, vision changes, or eye pain. Denies hemoptysis CARDIOVASCULAR: Denies chest pain or pressure. RESPIRATORY: No shortness of breath. GASTROINTESTINAL: See HPI for pertinent findings HEMATOLOGIC: Denies bleeding disorders. GENITOURINARY: Denies any blood in urine or increased urinary frequency. SKIN: Denies pruitis. Denies rash. PHYSICAL EXAM: VITAL SIGNS: Reviewed GENERAL: Well-developed in no acute distress. HEENT: No sclera icterus. Extraocular movements grossly intact. Moist buccal mucosa. Head is atraumatic, normocephalic. No nasal drainage. ABDOMEN: Soft. Nontender nondistended has drainage bag still present with pus NEUROLOGIC: Alert and oriented. Cranial nerves II through XII grossly intact. LABORATORY DATA: WBC 8.3 hemoglobin 8.8 platelets 440 IMAGING: ASSESSMENT: 1. Acute blood loss anemia secondary to upper GI bleed from a duodenal ulcer 2. Ulceration in the duodenal bulb with small clot and losing requiring epinephrine injection during EGD 3. Antral gastritis 4. Diverticular abscess with drainage bag 5. History of bowel and bladder cancer PLAN: -Continue Protonix -Continue clear liquid diet -Continue drainage bag for diverticular abscess Thank you for this consultation. We will continue to follow along with you. Physician Evp General Counsel note has been reviewed by physician. Signing provider agrees with the documented findings, assessment, and plan of care. Past Medical History Past Medical History: Cancer, Chest Pain / Angina, Diabetes Mellitus, Hypertension Additional Past Medical History / Comment(s): shortness of breath, bowel and bladder ca History of Any Multi-Drug Resistant Organisms: None Reported Past Surgical History: Back Surgery Additional Past Surgical History / Comment(s): hand surgery. back surgery with 4 screws and 2 rods currently had surgery for cancer on bladder on on the outside of his colon, has drain to LLQ abdomen Past Anesthesia/Blood Transfusion Reactions: No Reported Reaction Additional Past Anesthesia/Blood Transfusion Reaction / Comm: son allergic to one type of anesthesia Past Psychological History: No Psychological Hx Reported Smoking Status: Former smoker Past Alcohol Use History: None Reported Additional Past Alcohol Use History / Comment(s): quit 1990 smoked 30+ years on and off Past Drug Use History: None Reported - Past Family History Mother Family Medical History: Unable to Obtain Additional Family Medical History / Comment(s): adopted Medications and Allergies Home Medications Medication Instructions Recorded Confirmed Type Ascorbic Acid [Vitamin C] 500 mg PO DAILY@89903/31/18 01/30/20 History Cholecalciferol [Vitamin D3 (25 1,000 unit PO DAILY@89903/31/18 01/30/20 History Mcg = 1000 Iu)] Cyanocobalamin [Vitamin B-12] 500 mcg PO DAILY@89903/31/18 01/30/20 History Losartan Potassium 50 mg PO DAILY@89903/31/18 01/30/20 History Insulin Aspart [NovoLOG] See Protocol SQ AC-TID 08/01/18 01/30/20 History Isosorbide Mononitrate [Isosorbide 30 mg PO DAILY@89910/10/19 01/30/20 History Mononitrate ER] Levothyroxine Sodium [Synthroid] 50 mcg PO DAILY@59910/10/19 01/30/20 History Clopidogrel [Plavix] 75 mg PO HS@2100 12/05/19 01/30/20 History Aspirin [Haskell Aspirin EC] 81 mg PO DAILY@89901/12/20 01/30/20 History Cholestyramine (with Sugar) 4 gm PO BID@1000,1800 30 Days #60 01/19/20 01/30/20 Rx [Questran Packet] packet Acetaminophen Tab [Tylenol] 650 mg PO Q4H PRN 01/30/20 01/30/20 History Ampicillin-Sulbactam [Unasyn] 3 gm IVPB Q6H 01/30/20 01/30/20 History Calcium Carbonate [Tums] 1,000 mg PO Q6H PRN 01/30/20 01/30/20 History Enoxaparin [Lovenox] 40 mg SQ DAILY@89901/30/20 01/30/20 History Fluconazole [Diflucan] 200 mg PO DAILY@89901/30/20 01/30/20 History Insulin Glargine,Hum.rec.anlog 20 unit SQ BID@899,209901/30/20 01/30/20 History [Basaglar Kwikpen U-100] Mirtazapine [Remeron] 15 mg PO HS@209901/30/20 01/30/20 History Ondansetron HCl [Zofran] 8 mg PO Q8H PRN 01/30/20 01/30/20 History Allergies Allergy/AdvReac Type Severity Reaction Status Date / Time ciprofloxacin [From Cipro] Allergy Swelling Verified 01/30/20 07:18 propoxyphene [From Darvon] Allergy Hallucinati Verified 01/30/20 07:18 ons Iodinated Contrast Media AdvReac Dyspnea Verified 01/30/20 07:18 [Iodinated Contrast- Oral and IV Dye] Surgical - Exam Vital Signs Temp Pulse Resp BP Pulse Ox 98.3 F 94 18 138/71 99 01/30/20 03:13 01/30/20 03:13 01/30/20 03:13 01/30/20 03:13 01/30/20 03:13 Results - Labs 01/31/20 11:56 01/30/20 03:56 Abnormal Lab Results - Last 24 Hours (Table) 01/30/20 01/30/20 01/31/20 Range/Units 16:41 20:45 06:48 RBC (4.30-5.90) m/uL Hgb (13.0-17.5) gm/dL Hct (39.0-53.0) % MCHC (31.0-37.0) g/dL RDW (11.5-15.5) % POC Glucose (mg/dL) 163 H 171 H 55 L (75-99) mg/dL 01/31/20 01/31/20 01/31/20 Range/Units 07:26 11:33 11:56 RBC 3.08 L (4.30-5.90) m/uL Hgb 8.8 L D (13.0-17.5) gm/dL Hct 29.0 L (39.0-53.0) % MCHC 30.2 L (31.0-37.0) g/dL RDW 16.1 H (11.5-15.5) % POC Glucose (mg/dL) 155 H 50 L (75-99) mg/dL 01/31/20 Range/Units 12:02 RBC (4.30-5.90) m/uL Hgb (13.0-17.5) gm/dL Hct (39.0-53.0) % MCHC (31.0-37.0) g/dL RDW (11.5-15.5) % POC Glucose (mg/dL) 147 H (75-99) mg/dL
[2020-01-31 16:54] LABS: Glucose,Whole Blood 141 mg/dL (75-99)
--- NOTE | 2020-01-31 17:35 | P.PN ---
Progress Note - Text Progress Note Date: 01/31/20 Chief Complaint: Decreased hemoglobin History of presenting complaint: This is a 79-year-old patient resident of [facility], before by Dr. Pola Rodriguez. Chronic stable medical conditions include diabetes, chronic kidney disease, coronary artery disease with stent, hypertension, kidney stones bowel and bladder cancer. On December 07 patient had a cystoscopy that showed severe hemorrhagic cystitis. He's had prior back surgery and is also had surgery for his cancer and bladder. Patient states she is woken up early also this morning and EMS was called because hemoglobin was low. Possibly patient been having dark stools unclear. Patient not sure about the history. No chest pain or shortness of breath no fever no chills. Patient does feel weak and tired. 1 unit of blood was ordered. Today-underwent EGD was found to have-to 7 be a deep ulceration in the duodenal bulb along the duodenal sweep with a small clot and losing-status post epinephrine with good hemostasis. Also antral gastritis. Laying in bed, tired. Awake Review of systems: Was done for constitutional, cardiovascular, GI, pulmonary. relevant finding as above Active Medications Acetaminophen (Tylenol Tab) 650 mg PO Q4H PRN PRN Reason: Pain Last Admin: 01/31/20 01:03 Dose: 650 mg Documented by: Ascorbic Acid (Vitamin C) 500 mg PO DAILY@899 [facility] Last Admin: 01/31/20 10:24 Dose: Not Given Documented by: Cholestyramine Resin (Questran) 4 gm PO BID@1000,1800 [facility] Last Admin: 01/31/20 10:25 Dose: Not Given Documented by: Cyanocobalamin (Vitamin B-12) 500 mcg PO DAILY@899 [facility] Last Admin: 01/31/20 10:25 Dose: Not Given Documented by: Enoxaparin Sodium (Lovenox) 40 mg SQ DAILY@899 [facility] Last Admin: 01/31/20 10:25 Dose: Not Given Documented by: Fluconazole (Diflucan) 200 mg PO DAILY@899 [facility] Last Admin: 01/31/20 10:25 Dose: Not Given Documented by: Ampicillin Sodium/Sulbactam (Sodium 3 gm/ Sodium Chloride) 100 mls @ 200 mls/hr IVPB Q6HR [facility] Stop: 01/31/20 23:00 Last Admin: 01/31/20 13:28 Dose: Not Given Documented by: Insulin Aspart (Novolog) 0 unit SQ [facility]; Protocol Last Admin: 01/31/20 17:21 Dose: Not Given Documented by: Insulin Detemir (Levemir) 20 unit SQ BID@0900,2100 [facility] Last Admin: 01/31/20 10:25 Dose: Not Given Documented by: Isosorbide Mononitrate (Imdur) 30 mg PO DAILY@0900 [facility] Last Admin: 01/31/20 10:25 Dose: Not Given Documented by: Levothyroxine Sodium (Synthroid) 50 mcg PO DAILY@0600 [facility] Last Admin: 01/31/20 05:27 Dose: Not Given Documented by: Losartan Potassium (Cozaar) 50 mg PO DAILY@0900 [facility] Last Admin: 01/31/20 09:20 Dose: 50 mg Documented by: Mirtazapine (Remeron) 15 mg PO HS@2100 [facility] Last Admin: 01/30/20 20:11 Dose: 15 mg Documented by: Naloxone HCl (Narcan) 0.2 mg IV Q2M PRN PRN Reason: Opioid Reversal Ondansetron HCl (Zofran) 8 mg PO Q8H PRN PRN Reason: Nausea And Vomiting Pantoprazole Sodium (Protonix) 40 mg PO AC-BRKFST [facility] Last Admin: 01/31/20 10:24 Dose: Not Given Documented by: Physical examination: VITAL SIGNS: 97.5, 85, 18, 160 was any 7, 98% room air GENERAL: Laying in bed, awake EYES: [Pupils equal. Conjunctiva pale. HEENT: External appearance of nose and ears normal, oral cavity grossly normal. NECK: JVD not raised; masses not palpable. HEART: First and second heart sounds are normal; no edema. LUNGS: Respiratory rate normal; clear to auscultation. ABDOMEN: Soft, nontender, liver spleen not palpable, no masses palpable. PSYCH: Alert and oriented x3; mood and affect normal. MUSCULAR skeletal: Evidence of always patient in the hands INVESTIGATIONS, reviewed in the clinical context: White count 8.3 hemoglobin 8.8 Previous testing White count 8.4 hemoglobin 6.5 platelets 470 potassium 4.2 creatinine 1.33 Troponin I 0.190 Assessment: -Acute severe GI blood loss anemia-received a unit of blood -Acute bleeding duodenal ulcer-status post epinephrine injection -Acute gastritis -Bilateral nephrolithiasis -Coronary artery disease with stent -Diabetes mellitus type 2 -Essential hypertension -Hypothyroid -Chronic kidney disease stage III from kidney stones -Hypertensive kidney disease -Chronic bilateral hydronephrosis Plan: Continue to hold aspirin, and Plavix. Continue with PPI. Repeat CBC in the morning. Care was discussed with the patient. On a clear liquid diet
[2020-01-31 20:31] LABS: Glucose,Whole Blood 160 mg/dL (75-99)
[2020-01-31] MEDS: MIRTAZAPINE 15 MG TAB PO SCH (22:09)
[2020-02-01] MEDS: ACETAMINOPHEN TAB 325 MG TAB PO PRN ×2 (00:53→20:36)
[2020-02-01] MEDS: LEVOTHYROXINE 50 MCG TAB PO SCH (05:48)
[2020-02-01 06:56] LABS: Glucose,Whole Blood 147 mg/dL (75-99)
[2020-02-01 07:41] LABS: Anisocytosis Slight; Basophils # (A) 0.1 k/uL (0-0.2); Basophils % (A) 1 %; Eosinophils # (A) 0.4 k/uL (0-0.7); Eosinophils % (A) 5 %; HCT 29.1 % (39.0-53.0); HGB 8.6 gm/dL (13.0-17.5); Hypochromasia Marked; Lymphocytes # (A) 1.1 k/uL (1.0-4.8); Lymphocytes % (A) 14 %; MCH 27.7 pg (25.0-35.0); MCHC 29.5 g/dL (31.0-37.0); MCV 93.8 fL (80.0-100.0); Mean Platelet Volume 7.7; Monocytes # (A) 0.4 k/uL (0-1.0); Monocytes % (A) 5 %; Neutrophils # (A) 5.6 k/uL (1.3-7.7); Neutrophils % (A) 72 %; Platelet Count 387 k/uL (150-450); RBC 3.11 m/uL (4.30-5.90); RDW 16.1 % (11.5-15.5); WBC 7.8 k/uL (3.8-10.6)
[2020-02-01] MEDS: FLUCONAZOLE 100 MG TAB PO SCH (07:42)
[2020-02-01] MEDS: INSULIN DETEMIR (LEVEMIR) 100 UNIT/ML SYR SQ SCH (07:42)
[2020-02-01] MEDS: ASCORBIC ACID 500 MG TAB PO SCH (07:42)
[2020-02-01] MEDS: ISOSORBIDE MONONITRATE ER 30 MG TAB.ER.24H PO SCH (07:42)
[2020-02-01] MEDS: ENOXAPARIN 40 MG/0.4 ML SYRINGE SQ SCH (07:43)
[2020-02-01] MEDS: CHOLESTYRAMINE (WITH SUGAR) 4 GM PACKET PO SCH ×2 (07:43→17:09)
[2020-02-01] MEDS: LOSARTAN 50 MG TAB PO SCH (07:43)
[2020-02-01] MEDS: CYANOCOBALAMIN 500 MCG TAB PO SCH (07:43)
[2020-02-01] MEDS: PANTOPRAZOLE 40 MG TABLET PO SCH ×2 (07:43→17:08)
[2020-02-01] MEDS: INSULIN ASPART (NovoLOG) 100 UNIT/ML VIAL SQ SCH ×4 (07:43→20:36)
[2020-02-01 07:59] LABS: Calcium 8.2 mg/dL (8.4-10.2); Potassium 4.2 mmol/L (3.5-5.1)
[2020-02-01 12:13] LABS: Glucose,Whole Blood 125 mg/dL (75-99)
[2020-02-01] MEDS ORDERED: BARIUM SULFATE 450 ML ORAL.SUSP BOTTLE PO PRN (12:39)
--- NOTE | 2020-02-01 15:13 | P.PN ---
Subjective Progress Note Date: 02/01/20 CHIEF COMPLAINT: Anemia HISTORY OF PRESENT ILLNESS: Patient presented to the hospital with a hemoglobin of 6.5. Required blood transfusion. Underwent EGD with Dr. Andres that revealed Ulceration in the duodenal bulb with small clot and oozing requiring epinephrine injection and cauterization during EGD. Patient afebrile. WBC 7.8 hemoglobin 8.6. He is having bowel movements. Denies any vomiting. Currently on a clear liquid diet. PHYSICAL EXAM: VITAL SIGNS: Reviewed. GENERAL: Well-developed in no acute distress. HEENT: No sclera icterus. Extraocular movements grossly intact. Moist buccal m ucosa. Head is atraumatic, normocephalic. ABDOMEN: Soft. Nondistended. Nontender. Drainage bag has been darker fluid present NEUROLOGIC: Alert and oriented. Cranial nerves II through XII grossly intact. ASSESSMENT: 1. Acute blood loss anemia secondary to upper GI bleed from a duodenal ulcer 2. Ulceration in the duodenal bulb with small clot and oozing requiring epinephrine injection and cauterization during EGD 3. Antral gastritis 4. Diverticular abscess with drainage bag 5. History of bowel and bladder cancer PLAN: -Continue Protonix -Continue clear liquid diet. Diet to be advanced by GI service -Continue drainage bag for diverticular abscess -Computed tomography scan of the abdomen ordered to further assess diverticular abscess Physician Film Producer note has been reviewed by physician. Signing provider agrees with the documented findings, assessment, and plan of care. Objective - Vital Signs Vital signs: Vital Signs Temp 98.3 F 02/01/20 11:53 Pulse 93 02/01/20 11:53 Resp 17 02/01/20 11:53 BP 124/64 02/01/20 11:53 Pulse Ox 100 02/01/20 11:53 Intake & Output 01/31/20 02/01/20 02/01/20 18:59 06:59 18:59 Intake Total 250 Output Total 625 950 1 Balance -375 -950 -1 Intake: IV 50 Intake, IV Titration 100 Amount Ampicillin-Sulbactam 3 gm 100 In Sodium Chloride 0.9% 100 ml @ 200 mls/hr IVPB Q6HR [facility] Rx#:[id number] Oral 100 Output: Drainage 25 Left Lower Abdomen 25 Urine 600 950 Stool 1 Other: Voiding Method Indwelling Catheter Indwelling Catheter Indwelling Catheter - Labs CBC & Chem 7: 02/01/20 07:12 02/01/20 07:12 Labs: Abnormal Lab Results - Last 24 Hours (Table) 01/31/20 01/31/20 02/01/20 Range/Units 16:52 20:29 06:55 RBC (4.30-5.90) m/uL Hgb (13.0-17.5) gm/dL Hct (39.0-53.0) % MCHC (31.0-37.0) g/dL RDW (11.5-15.5) % Chloride (98-107) mmol/L Creatinine (0.66-1.25) mg/dL Glucose (74-99) mg/dL POC Glucose (mg/dL) 141 H 160 H 147 H (75-99) mg/dL Calcium (8.4-10.2) mg/dL 02/01/20 02/01/20 02/01/20 Range/Units 07:12 07:12 12:11 RBC 3.11 L (4.30-5.90) m/uL Hgb 8.6 L (13.0-17.5) gm/dL Hct 29.1 L (39.0-53.0) % MCHC 29.5 L (31.0-37.0) g/dL RDW 16.1 H (11.5-15.5) % Chloride 109 H (98-107) mmol/L Creatinine 1.39 H (0.66-1.25) mg/dL Glucose 130 H (74-99) mg/dL POC Glucose (mg/dL) 125 H (75-99) mg/dL Calcium 8.2 L (8.4-10.2) mg/dL
--- NOTE | 2020-02-01 15:19 | PN ---
PROGRESS NOTE DATE OF DICTATION: 02/01/2020 This patient is an 79-year-old pleasant white male admitted to the hospital with severe symptomatic anemia and black tarry stools. He had an upper endoscopy yesterday that revealed a 2 cm acute duodenal bulbar ulcer with active bleeding, status post injection epinephrine and cautery. He is doing well. He had one bowel movement today. So far he received a total of one unit of PRBC transfusion. Last hemoglobin is 8.6 g/dL. He denies any abdominal pain. No nausea, no vomiting. Remains on a clear liquid diet, tolerating well. PHYSICAL EXAMINATION: Appears comfortable. No apparent distress. Vital signs are stable. Blood pressure 124/64, pulse rate 93, temperature 98.3. HEENT examination unremarkable. Conjunctivae pink. Sclerae anicteric. Oral cavity no lesions. NECK: No JVD or lymph node enlargement. CHEST: Clear to auscultation. HEART: Regular rate and rhythm. ABDOMEN: Soft. Bowel sounds are positive. No organomegaly. There is a catheter in the left lower quadrant area noted. EXTREMITIES: No pedal edema. NEUROLOGIC: Alert and oriented x3. LABS: Labs from today show WBC 7.8, hemoglobin 8.6, platelets 387. Rest of the labs include BUN of 9, creatinine 1.39. IMPRESSION: 1. Acute upper gastrointestinal bleed, status post esophagogastroduodenoscopy yesterday that showed a 2 cm duodenal bulbar ulcer with active bleeding, status post injection epinephrine and cautery, with good hemostasis. Patient is hemodynamically stable. No further bleeding. Last hemoglobin is 8.5 g/dL. 2. Recent diverticular abscess, status post drainage catheter in place. 3. Bladder cancer diagnosed one month ago. RECOMMENDATIONS: 1. Continue with Protonix 40 mg twice daily. 2. Advance diet as tolerated. 3. Monitor CBC on a daily basis. 4. Will follow with you closely. Thank you for this consultation. MMODL / IJN: [id number] /
--- NOTE | 2020-02-01 16:21 | CT ---
EXAMINATION TYPE: CT abdomen pelvis wo con DATE OF EXAM: 02/01/2020 COMPARISON: 01/22/2020 HISTORY: Follow up diverticular abscess. CT DLP: 638.8 mGycm Examination of the solid and hollow viscera is limited given the lack of contrast. FINDINGS: LUNG BASES: No evidence for nodule. No evidence for infiltrate. LIVER/GB: Stable hepatic cyst. The gallbladder is unremarkable. No space-occupying hepatic lesion. PANCREAS: No pancreatic mass identified. No inflammatory process seen. SPLEEN: No evidence for splenomegaly. No intrasplenic lesions seen. ADRENALS: No adrenal nodules identified. No evidence for thickening. KIDNEYS: There is persistent bilateral hydronephrosis with nonobstructing nephrolithiasis. Hydrourete r is seen bilaterally extending to the urinary bladder. Landin catheter is in place. BOWEL: Again noted is a percutaneous drainage catheter extending to the left lower quadrant at the si te of prior abscess. Small residual phlegmon is noted. No definite abscess seen at this time. Small b owel distention without obstructive change. Mild persistent inflammatory change about the sigmoid col on. Lymph nodes: No evidence for adenopathy greater than 1 cm. Abdominal aorta: Atheromatous changes seen. No evidence for aneurysm. Genital organs: No significant abnormality. Other: No significant abnormality. IMPRESSION: 1.Again noted is a percutaneous drainage catheter extending to the left lower quadrant at the site of prior abscess. Small residual phlegmon is noted. No definite abscess seen at this time. 2. Bilateral hydronephrosis. Nonobstructing nephrolithiasis.
[2020-02-01 16:49] LABS: Glucose,Whole Blood 70 mg/dL (75-99)
--- NOTE | 2020-02-01 17:50 | P.PN ---
Progress Note - Text Progress Note Date: 02/01/20 Chief Complaint: Decreased hemoglobin History of presenting complaint: This is a 79-year-old patient resident of [facility], before by Dr. Pola Rodriguez. Chronic stable medical conditions include diabetes, chronic kidney disease, coronary artery disease with stent, hypertension, kidney stones bowel and bladder cancer. On December 07 patient had a cystoscopy that showed severe hemorrhagic cystitis. He's had prior back surgery and is also had surgery for his cancer and bladder. Patient states she is woken up early also this morning and EMS was called because hemoglobin was low. Possibly patient been having dark stools unclear. Patient not sure about the history. No chest pain or shortness of breath no fever no chills. Patient does feel weak and tired. 1 unit of blood was ordered. EGD was found to have- a deep ulceration in the duodenal bulb along the duodenal sweep with a small clot and losing-status post epinephrine with good hemostasis. Also antral gastritis. Today-tolerated a clear liquid diet. had a bowel movement earlier not really dark. Slight abdominal pain. Review of systems: Was done for constitutional, cardiovascular, GI, pulmonary. relevant finding as above Active Medications Acetaminophen (Tylenol Tab) 650 mg PO Q4H PRN PRN Reason: Pain Last Admin: 02/01/20 00:53 Dose: 650 mg Documented by: Ascorbic Acid (Vitamin C) 500 mg PO DAILY@899 [facility] Last Admin: 02/01/20 07:42 Dose: 500 mg Documented by: Barium Sulfate (Readi-Cat 2) 450 ml PO Q3HR PRN PRN Reason: CT Scan Stop: 02/02/20 12:39 Cholestyramine Resin (Questran) 4 gm PO BID@1000,1800 [facility] Last Admin: 02/01/20 17:09 Dose: 4 gm Documented by: Cyanocobalamin (Vitamin B-12) 500 mcg PO DAILY@09 [facility] Last Admin: 02/01/20 07:43 Dose: 500 mcg Documented by: Enoxaparin Sodium (Lovenox) 40 mg SQ DAILY@899 [facility] Last Admin: 02/01/20 07:43 Dose: 40 mg Documented by: Fluconazole (Diflucan) 200 mg PO DAILY@0900 [facility] Last Admin: 02/01/20 07:42 Dose: 200 mg Documented by: Insulin Aspart (Novolog) 0 unit SQ [facility]; Protocol Last Admin: 02/01/20 17:06 Dose: Not Given Documented by: Insulin Detemir (Levemir) 20 unit SQ BID@0900,2100 [facility] Last Admin: 02/01/20 07:42 Dose: 20 unit Documented by: Isosorbide Mononitrate (Imdur) 30 mg PO DAILY@0900 [facility] Last Admin: 02/01/20 07:42 Dose: 30 mg Documented by: Levothyroxine Sodium (Synthroid) 50 mcg PO DAILY@0600 [facility] Last Admin: 02/01/20 05:48 Dose: Not Given Documented by: Losartan Potassium (Cozaar) 50 mg PO DAILY@0900 [facility] Last Admin: 02/01/20 07:43 Dose: 50 mg Documented by: Mirtazapine (Remeron) 15 mg PO HS@2100 [facility] Last Admin: 01/31/20 22:09 Dose: 15 mg Documented by: Naloxone HCl (Narcan) 0.2 mg IV Q2M PRN PRN Reason: Opioid Reversal Ondansetron HCl (Zofran) 8 mg PO Q8H PRN PRN Reason: Nausea And Vomiting Pantoprazole Sodium (Protonix) 40 mg PO AC-BID [facility] Last Admin: 02/01/20 17:08 Dose: 40 mg Documented by: Physical examination: VITAL SIGNS: 98.2, 89, 18, 1 38 x 73, 99% room air GENERAL: Laying in bed, awake EYES: [Pupils equal. Conjunctiva pale. HEENT: External appearance of nose and ears normal, oral cavity grossly normal. NECK: JVD not raised; masses not palpable. HEART: First and second heart sounds are normal; no edema. LUNGS: Respiratory rate normal; clear to auscultation. ABDOMEN: Soft, mild tenderness, liver spleen not palpable, no masses palpable. PSYCH: Alert and oriented x3; mood and affect normal. MUSCULAR skeletal: Evidence of always patient in the hands INVESTIGATIONS, reviewed in the clinical context: hemoglobin 8.6 Previous testing White count 8.4 hemoglobin 6.5 platelets 470 potassium 4.2 creatinine 1.33 Troponin I 0.190 Assessment: -Acute severe GI blood loss anemia-received a unit of blood -Acute bleeding duodenal ulcer-status post epinephrine injection -Acute gastritis -Bilateral nephrolithiasis -Coronary artery disease with stent -Diabetes mellitus type 2 -Essential hypertension -Hypothyroid -Chronic kidney disease stage III from kidney stones -Hypertensive kidney disease -Chronic bilateral hydronephrosis Plan: diet advanced to full liquids. If no further bleeding advanced to soft bland in the morning.. Repeat H&H.
[2020-02-01 20:18] LABS: Glucose,Whole Blood 170 mg/dL (75-99)
[2020-02-01] MEDS: MIRTAZAPINE 15 MG TAB PO SCH (20:36)
[2020-02-02] MEDS: LEVOTHYROXINE 50 MCG TAB PO SCH (05:30)
[2020-02-02] MEDS ORDERED: INSULIN DETEMIR (LEVEMIR) 100 UNIT/ML SYR SQ SCH (07:00)
[2020-02-02 07:28] LABS: Glucose,Whole Blood 163 mg/dL (75-99)
[2020-02-02] MEDS: PANTOPRAZOLE 40 MG TABLET PO SCH ×2 (07:47→20:10)
[2020-02-02] MEDS: INSULIN ASPART (NovoLOG) 100 UNIT/ML VIAL SQ SCH ×4 (07:48→21:34)
[2020-02-02 08:07] LABS: HCT 27.8 % (39.0-53.0); HGB 8.1 gm/dL (13.0-17.5); Hypochromasia Marked; MCH 27.5 pg (25.0-35.0); MCHC 29.3 g/dL (31.0-37.0); MCV 94.1 fL (80.0-100.0); Mean Platelet Volume 7.5; Platelet Count 388 k/uL (150-450); RBC 2.96 m/uL (4.30-5.90); RDW 15.9 % (11.5-15.5); WBC 8.4 k/uL (3.8-10.6)
[2020-02-02] MEDS: ACETAMINOPHEN TAB 325 MG TAB PO PRN ×2 (08:58→21:36)
[2020-02-02] MEDS: CYANOCOBALAMIN 500 MCG TAB PO SCH (09:09)
[2020-02-02] MEDS: LOSARTAN 50 MG TAB PO SCH (09:09)
[2020-02-02] MEDS: ISOSORBIDE MONONITRATE ER 30 MG TAB.ER.24H PO SCH (09:09)
[2020-02-02] MEDS: FLUCONAZOLE ORAL SUSP 1,400 MG/35 ML BOTTLE PO SCH (09:10)
[2020-02-02] MEDS: ENOXAPARIN 40 MG/0.4 ML SYRINGE SQ SCH (09:10)
[2020-02-02] MEDS: ASCORBIC ACID 500 MG TAB PO SCH (09:10)
--- NOTE | 2020-02-02 09:49 | P.CONS ---
History of Present Illness - Reason for Consult Consult date: 02/01/20 Abdominal abscess Requesting physician: Alexander Carrillo - Chief Complaint Abnormal labs low Hemoglobin x 1 day - History of Present Illness Patient is 79-year-old male who was recently admitted at this facility in this patient who did have intra-abdominal abscess status post CT-guided drainage culture were positive for Streptococcus Enterococcus faecalis E. coli Proteus along with these patient was discharged to residential on 01/21/2020 and was advised a ten-day course of IV Unasyn and oral Diflucan patient subsequently has been brought back to [facility] on 01/30/2020 after the patient was noticed to have hemoglobin of 6.7 on a routine blood work patient denies having active symptoms at that point, patient has been evaluated by GI services and the patient is status post EGD with evidence of 2 cm deep ulceration in the duodenal bulb with small clot and using status post epinephrine injection patient was evaluated by general surgery as well as and a repeat CT of abdominal pelvis has been done with did shows overall resolution of his abscess in the left lower quadrant but small phelgom was seen patient was started on oral Diflucan and infection it was consulted for further management of antibiotic therapy, patient did not have any fever during this admission and his white count is normal, patient himself denies having headache, chest pain shortness of breath or cough no nausea no vomiting. He mild lower abdominal pain with with intensity of 2-3 out of 10 and no radiation or nausea and vomiting no diarrhea Review of Systems Positive point has been mentioned in the HPI rest of the systems are negative Past Medical History Past Medical History: Cancer, Chest Pain / Angina, Diabetes Mellitus, Hypertension Additional Past Medical History / Comment(s): shortness of breath, bowel and bladder ca History of Any Multi-Drug Resistant Organisms: None Reported Past Surgical History: Back Surgery Additional Past Surgical History / Comment(s): hand surgery. back surgery with 4 screws and 2 rods currently had surgery for cancer on bladder on on the outsid e of his colon, has drain to LLQ abdomen Past Anesthesia/Blood Transfusion Reactions: No Reported Reaction Additional Past Anesthesia/Blood Transfusion Reaction / Comm: son allergic to one type of anesthesia Past Psychological History: No Psychological Hx Reported Smoking Status: Former smoker Past Alcohol Use History: None Reported Additional Past Alcohol Use History / Comment(s): quit 1990 smoked 30+ years on and off Past Drug Use History: None Reported - Past Family History Mother Family Medical History: Unable to Obtain Additional Family Medical History / Comment(s): adopted Medications and Allergies Home Medications Medication Instructions Recorded Confirmed Type Ascorbic Acid [Vitamin C] 500 mg PO DAILY@89903/31/18 01/30/20 History Cholecalciferol [Vitamin D3 (25 1,000 unit PO DAILY@89903/31/18 01/30/20 History Mcg = 1000 Iu)] Cyanocobalamin [Vitamin B-12] 500 mcg PO DAILY@89903/31/18 01/30/20 History Losartan Potassium 50 mg PO DAILY@89903/31/18 01/30/20 History Insulin Aspart [NovoLOG] See Protocol SQ AC-TID 08/01/18 01/30/20 History Isosorbide Mononitrate [Isosorbide 30 mg PO DAILY@89910/10/19 01/30/20 History Mononitrate ER] Levothyroxine Sodium [Synthroid] 50 mcg PO DAILY@59910/10/19 01/30/20 History Clopidogrel [Plavix] 75 mg PO HS@209912/05/19 01/30/20 History Aspirin [[place] Aspirin EC] 81 mg PO DAILY@89901/12/20 01/30/20 History Cholestyramine (with Sugar) 4 gm PO BID@1000,1800 30 Days #60 01/19/20 01/30/20 Rx [Questran Packet] packet Acetaminophen Tab [Tylenol] 650 mg PO Q4H PRN 01/30/20 01/30/20 History Ampicillin-Sulbactam [Unasyn] 3 gm IVPB Q6H 01/30/20 01/30/20 History Calcium Carbonate [Tums] 1,000 mg PO Q6H PRN 01/30/20 01/30/20 History Enoxaparin [Lovenox] 40 mg SQ DAILY@89901/30/20 01/30/20 History Fluconazole [Diflucan] 200 mg PO DAILY@89901/30/20 01/30/20 History Insulin Glargine,Hum.rec.anlog 20 unit SQ BID@0900,2100 01/30/20 01/30/20 History [Basaglar Kwikpen U-100] Mirtazapine [Remeron] 15 mg PO HS@2100 01/30/20 01/30/20 History Ondansetron HCl [Zofran] 8 mg PO Q8H PRN 01/30/20 01/30/20 History Allergies Allergy/AdvReac Type Severity Reaction Status Date / Time ciprofloxacin [From Cipro] Allergy Swelling Verified 01/30/20 07:18 propoxyphene [From Darvon] Allergy Hallucinati Verified 01/30/20 07:18 ons Iodinated Contrast Media AdvReac Dyspnea Verified 01/30/20 07:18 [Iodinated Contrast- Oral and IV Dye] Physical Exam Vitals: Vital Signs Temp Pulse Pulse Resp BP Pulse Ox 02/02/20 07:08 98.0 F 95 18 163/86 99 02/02/20 01:55 98.1 F 94 18 151/70 98 02/02/20 00:00 18 02/01/20 19:07 98.1 F 67 18 157/71 97 02/01/20 16:00 89 90 18 02/01/20 15:00 98.2 F 89 18 138/73 99 02/01/20 11:53 98.3 F 93 17 124/64 100 Intake and Output 02/01/20 02/02/20 02/02/20 22:59 06:59 14:59 Intake Total 300 300 Output Total 2002 1 Balance -1703 299 Intake: Oral 300 300 Output: Urine 2000 Stool 3 1 Other: Voiding Method Indwelling Catheter Indwelling Catheter Indwelling Catheter # Voids 2 Weight 74.843 kg GENERAL DESCRIPTION: An elderly male lying in bed, no distress. No tachypnea or accessory muscle of respiration use. HEENT: Shows Pallor , no scleral icterus. Oral mucous membrane is dry. No pharyngeal erythema or thrush NECK: Trachea central, no thyromegaly. LUNGS: Unlabored breathing. Decreased breath sounds at the bases. No wheeze or crackle. HEART: S1, S2, regular rate and rhythm. No loud murmur ABDOMEN: Soft, no tenderness , guarding or rigidity, no organomegaly, HUDSON drainage with purulent secretions EXTREMITIES: No edema of feet. SKIN: No rash, no masses palpable. NEUROLOGICAL: The patient is awake, alert, oriented x3, mood and affect normal. Results CBC & Chem 7: 02/02/20 07:50 02/01/20 07:12 Labs: Abnormal Lab Results - Last 24 Hours (Table) 02/01/20 02/01/20 02/01/20 Range/Units 12:11 16:47 20:16 RBC (4.30-5.90) m/uL Hgb (13.0-17.5) gm/dL Hct (39.0-53.0) % MCHC (31.0-37.0) g/dL RDW (11.5-15.5) % POC Glucose (mg/dL) 125 H 70 L 170 H (75-99) mg/dL 02/02/20 02/02/20 Range/Units 07:24 07:50 RBC 2.96 L (4.30-5.90) m/uL Hgb 8.1 L (13.0-17.5) gm/dL Hct 27.8 L (39.0-53.0) % MCHC 29.3 L (31.0-37.0) g/dL RDW 15.9 H (11.5-15.5) % POC Glucose (mg/dL) 163 H (75-99) mg/dL Assessment and Plan Assessment: 1- patient with abdominal abscess status post CT-guided drainage on his last visit culture grew multiple pathogen in this patient was advised Unasyn 3 g every 6 hours along with oral Diflucan for 10 days patient subsequently has been readmitted to the hospital For anemia however antibiotics were not continued, CT of abdominal pelvis which shows resolution of the abscess however there is some residual phelgom likely residual infection and not complete resolution of his infection (1) Intra-abdominal abscess Current Visit: No Status: Acute Code(s): K65.1 - PERITONEAL ABSCESS SNOMED Code(s): 87111643 Plan: 1- we will restart the patient on Unasyn 3 g every 6 hours along with oral Diflucan 2- HUDSON drainage should be discontinued 3- antibiotic will be transitioned to oral Augmentin and Diflucan for about a week on discharge We will follow on clinical condition and cultures to further adjust medication if needed Thank you for this consultation will follow this patient with you Time with Patient: Greater than 30
[2020-02-02 11:30] LABS: Glucose,Whole Blood 169 mg/dL (75-99)
[2020-02-02] MEDS: AMPICILLIN-SULBACTAM 3 GM in SODIUM CHLORIDE 0.9% 100 ML IVPB SCH ×2 (12:36→20:10)
--- NOTE | 2020-02-02 15:19 | P.PN ---
Subjective Progress Note Date: 02/02/20 CHIEF COMPLAINT: Anemia HISTORY OF PRESENT ILLNESS: Patient presented to the hospital with a hemoglobin of 6.5. Required blood transfusion. Underwent EGD with Dr. Andres that revealed Ulceration in the duodenal bulb with small clot and oozing requiring epinephrine injection and cauterization during EGD. Patient afebrile. He is having bowel movements. Tolerating regular diet. Denies any vomiting. He is regular diet. Hemoglobin 8.1 WBC 8.4. He had a computed tomography scan of the abdomen showi ng no abscess small residual phlegmon noted. PHYSICAL EXAM: VITAL SIGNS: Reviewed. GENERAL: Well-developed in no acute distress. HEENT: No sclera icterus. Extraocular movements grossly intact. Moist buccal mucosa. Head is atraumatic, normocephalic. ABDOMEN: Soft. Nondistended. Nontender. Drainage bag has been darker fluid present NEUROLOGIC: Alert and oriented. Cranial nerves II through XII grossly intact. ASSESSMENT: 1. Acute blood loss anemia secondary to upper GI bleed from a duodenal ulcer 2. Ulceration in the duodenal bulb with small clot and oozing requiring epinephrine injection and cauterization during EGD 3. Antral gastritis 4. Diverticular abscess with drainage bag 5. History of bowel and bladder cancer PLAN: -Continue Protonix -Continue drainage bag for diverticular abscess at discharge -Patient follow-up with Dr. Garcia in 1 week Physician Statement Request Clerk note has been reviewed by physician. Signing provider agrees with the documented findings, assessment, and plan of care. Objective - Vital Signs Vital signs: Vital Signs Temp 98.1 F 02/02/20 12:26 Pulse 87 02/02/20 12:26 Resp 17 02/02/20 12:26 BP 99/55 02/02/20 12:26 Pulse Ox 98 02/02/20 12:26 Intake & Output 02/01/20 02/02/20 02/02/20 18:59 06:59 18:59 Intake Total 600 Output Total 603 1402 Balance -603 -802 Weight 74.843 kg Intake: Oral 600 Output: Urine 600 1400 Stool 3 2 Other: Voiding Method Indwelling Catheter Indwelling Catheter Indwelling Catheter # Voids 2 - Labs CBC & Chem 7: 02/02/20 07:50 02/01/20 07:12 Labs: Abnormal Lab Results - Last 24 Hours (Table) 02/01/20 02/01/20 02/02/20 Range/Units 16:47 20:16 07:24 RBC (4.30-5.90) m/uL Hgb (13.0-17.5) gm/dL Hct (39.0-53.0) % MCHC (31.0-37.0) g/dL RDW (11.5-15.5) % POC Glucose (mg/dL) 70 L 170 H 163 H (75-99) mg/dL 02/02/20 02/02/20 Range/Units 07:50 11:18 RBC 2.96 L (4.30-5.90) m/uL Hgb 8.1 L (13.0-17.5) gm/dL Hct 27.8 L (39.0-53.0) % MCHC 29.3 L (31.0-37.0) g/dL RDW 15.9 H (11.5-15.5) % POC Glucose (mg/dL) 169 H (75-99) mg/dL
--- NOTE | 2020-02-02 16:22 | PN ---
PROGRESS NOTE DATE OF DICTATION: 02/02/2020 Patient is an 79-year-old pleasant white male admitted to hospital with severe symptomatic anemia and black tarry stools. EGD done 2 days ago showed a 2 cm duodenal bulbar ulcer with active bleeding. The patient is on Protonix 40 mg twice daily. He is doing well, no further bleeding. Hemoglobin remains stable. PHYSICAL EXAMINATION: Appears comfortable, blood pressure 120/57, pulse rate 88, temperature 97.6. HEENT: Examination unremarkable, conjunctivae are pink, sclerae nonicteric, oral cavity no lesions. NECK: No JVD or lymph node enlargement. CHEST: Clear to auscultation. HEART: Regular rate and rhythm. ABDOMEN: Soft, bowel sounds are positive, no organomegaly. EXTREMITIES: No pedal edema. NEURO: He is alert and oriented x3. No focal deficits. LABS: From today hemoglobin is 8.1, WBC 8.4, platelets are 388. IMPRESSION: 1. Acute gastrointestinal bleed secondary to bleeding duodenal ulcer, status post EGD with cautery 2 days ago. Hemoglobin is 8.1 g/dL and stable. No further bleeding. 2. Newly diagnosed bladder cancer for which he is going to follow with Dr. Esteban. 3. Recent diverticular abscess status post CT-guided drainage, catheter placement during last hospitalization. The patient is going for catheter removal today. RECOMMENDATION: 1. Continue with Protonix 40 mg twice daily. 2. Avoid NSAIDs. 3. Regular diet. 4. He was advised to follow up in office in 4 weeks following discharge from the hospital. Thank you for this consultation. MMODL / IJN: [id number] /
[2020-02-02 16:39] LABS: Glucose,Whole Blood 68 mg/dL (75-99)
[2020-02-02 16:47] LABS: Glucose,Whole Blood 60 mg/dL (75-99)
[2020-02-02 17:04] LABS: Glucose,Whole Blood 78 mg/dL (75-99)
[2020-02-02 18:05] LABS: Glucose,Whole Blood 126 mg/dL (75-99)
--- NOTE | 2020-02-02 18:22 | PN ---
PROGRESS NOTE DATE OF SERVICE: 02/02/2020 REASON FOR FOLLOWUP: Abdominal abscess. INTERVAL HISTORY: The patient is currently afebrile, has been breathing comfortably. Denies having any chest pain, shortness of breath or cough. Abdominal pain is currently controlled. No nausea, vomiting or diarrhea. PHYSICAL EXAMINATION: Blood pressure 120/57 with a pulse of 88, temperature 96.6. He is 98% on room air. General description is an elderly male lying in bed in no distress. RESPIRATORY SYSTEM: Unlabored breathing. Clear to auscultation anteriorly. HEART: S1, S2. Regular rate and rhythm. ABDOMEN: Soft. No tenderness. LABS: Hemoglobin 8.1, white count 8.4. No culture this admission. DIAGNOSTIC IMPRESSION AND PLAN: Patient with abdominal abscess, status post CT-guided drainage. Cultures were positive for multiple pathogens. Patient is also on Unasyn and Diflucan, to be continued. Finish therapy with oral Augmentin and Diflucan for a short course, as repeat CT did show resolution of the abscess, but still some fungal formation. Continue supportive care. MMODL / IJN: [id number] /
[2020-02-02 20:14] LABS: Glucose,Whole Blood 147 mg/dL (75-99)
--- NOTE | 2020-02-02 21:14 | P.PN ---
Progress Note - Text Progress Note Date: 02/02/20 Chief Complaint: Decreased hemoglobin History of presenting complaint: This is a 79-year-old patient resident of [facility], before by Dr. Pola Rodriguez. Chronic stable medical conditions include diabetes, chronic kidney disease, coronary artery disease with stent, hypertension, kidney stones bowel and bladder cancer. On December 07 patient had a cystoscopy that showed severe hemorrhagic cystitis. He's had prior back surgery and is also had surgery for his cancer and bladder. He was discharged a week ago was found to have a diverticular abscess with multiple orgasm growing. Drain was placed. Discharged on IV Unasyn and Diflucan. Patient states she is woken up early also this morning and EMS was called because hemoglobin was low. Possibly patient been having dark stools unclear. Patient not sure about the history. No chest pain or shortness of breath no fever no chills. Patient does feel weak and tired. 1 unit of blood was ordered. EGD was found to have- a deep ulceration in the duodenal bulb along the duodenal sweep with a small clot and losing-status post epinephrine with good hemostasis. Also antral gastritis. Today-has been advanced to regular diet. Feels a bit tired. IV antibiotics and place. Did become hypoglycemic in the afternoon. Review of systems: Was done for constitutional, cardiovascular, GI, pulmonary. relevant finding as above Active Medications Acetaminophen (Tylenol Tab) 650 mg PO Q4H PRN PRN Reason: Pain Last Admin: 02/02/20 08:58 Dose: 650 mg Documented by: Ascorbic Acid (Vitamin C) 500 mg PO DAILY@899 [facility] Last Admin: 02/02/20 09:10 Dose: 500 mg Documented by: Cyanocobalamin (Vitamin B-12) 500 mcg PO DAILY@0900 [facility] Last Admin: 02/02/20 09:09 Dose: 500 mcg Documented by: Enoxaparin Sodium (Lovenox) 40 mg SQ DAILY@899 [facility] Last Admin: 02/02/20 09:10 Dose: 40 mg Documented by: Fluconazole (Diflucan) 200 mg PO DAILY [facility] Last Admin: 02/02/20 09:10 Dose: 200 mg Documented by: Ampicillin Sodium/Sulbactam (Sodium 3 gm/ Sodium Chloride) 100 mls @ 200 mls/hr IVPB Q6HR [facility] Last Admin: 02/02/20 20:10 Dose: Not Given Documented by: Insulin Aspart (Novolog) 0 unit SQ [facility]; Protocol Last Admin: 02/02/20 20:10 Dose: Not Given Documented by: Insulin Detemir (Levemir) 26 unit SQ DAILY@0700 [facility] Last Admin: 02/02/20 07:47 Dose: 26 unit Documented by: Isosorbide Mononitrate (Imdur) 30 mg PO DAILY@0900 [facility] Last Admin: 02/02/20 09:09 Dose: 30 mg Documented by: Levothyroxine Sodium (Synthroid) 50 mcg PO DAILY@0600 [facility] Last Admin: 02/02/20 05:30 Dose: 50 mcg Documented by: Losartan Potassium (Cozaar) 50 mg PO DAILY@0900 [facility] Last Admin: 02/02/20 09:09 Dose: 50 mg Documented by: Mirtazapine (Remeron) 15 mg PO HS@2100 [facility] Last Admin: 02/01/20 20:36 Dose: 15 mg Documented by: Naloxone HCl (Narcan) 0.2 mg IV Q2M PRN PRN Reason: Opioid Reversal Ondansetron HCl (Zofran) 8 mg PO Q8H PRN PRN Reason: Nausea And Vomiting Pantoprazole Sodium (Protonix) 40 mg PO AC-BID [facility] Last Admin: 02/02/20 20:10 Dose: Not Given Documented by: Physical examination: VITAL SIGNS: 98, 95, 18, 163 with 86, 99% on room air GENERAL: Laying in bed, tired EYES: [Pupils equal. Conjunctiva pale. HEENT: External appearance of nose and ears normal, oral cavity grossly normal. NECK: JVD not raised; masses not palpable. HEART: First and second heart sounds are normal; no edema. LUNGS: Respiratory rate normal; clear to auscultation. ABDOMEN: Soft, mild tenderness, liver spleen not palpable, no masses palpable. Left lower quadrant Drain in place PSYCH: Alert and oriented x3; mood and affect normal. MUSCULAR skeletal: Evidence of always patient in the hands INVESTIGATIONS, reviewed in the clinical context: Accu-Cheks 169, 68, 68 Previous testing White count 8.4 hemoglobin 6.5 platelets 470 potassium 4.2 creatinine 1.33 Troponin I 0.190 Assessment: -Acute severe GI blood loss anemia-received a unit of blood -Acute bleeding duodenal ulcer-status post epinephrine injection -Acute gastritis -Bilateral nephrolithiasis -Coronary artery disease with stent -Diabetes mellitus type 2 -Essential hypertension -Hypothyroid -Chronic kidney disease stage III from kidney stones -Hypertensive kidney disease -Chronic bilateral hydronephrosis -Recent diverticular abscess growing multiple organisms with a left lower quadrant drain on antibiotics Plan: -On regular diet. Hypoglycemic. On further cut back the dose of Levemir. Encourage oral intake. IV antibiotics per Dr. Aguero.-To be changed to Augmentin upon discharge. Discussed with patient. Discharged tomorrow.
[2020-02-02] MEDS: MIRTAZAPINE 15 MG TAB PO SCH (21:35)
[2020-02-02 22:12] LABS: Hemoglobin A1C 5.5 % (4.0-6.0)
[2020-02-03] MEDS: AMPICILLIN-SULBACTAM 3 GM in SODIUM CHLORIDE 0.9% 100 ML IVPB SCH ×3 (00:40→12:02)
[2020-02-03] MEDS ORDERED: KETOROLAC 15 MG/ML 1 ML VIAL IVP PRN (00:51)
[2020-02-03 02:14] LABS: Glucose,Whole Blood 144 mg/dL (75-99)
[2020-02-03 03:02] VITALS: RESP 16
[2020-02-03] MEDS: LEVOTHYROXINE 50 MCG TAB PO SCH (05:17)
[2020-02-03 07:00] LABS: Glucose,Whole Blood 126 mg/dL (75-99)
[2020-02-03] MEDS ORDERED: INSULIN DETEMIR (LEVEMIR) 100 UNIT/ML SYR SQ SCH (07:00)
[2020-02-03 07:27] LABS: HCT 28.2 % (39.0-53.0); HGB 8.3 gm/dL (13.0-17.5); Hypochromasia Marked; MCH 27.8 pg (25.0-35.0); MCHC 29.4 g/dL (31.0-37.0); MCV 94.7 fL (80.0-100.0); Mean Platelet Volume 7.6; Platelet Count 382 k/uL (150-450); RBC 2.98 m/uL (4.30-5.90); RDW 15.7 % (11.5-15.5); WBC 9.3 k/uL (3.8-10.6)
[2020-02-03] MEDS: CYANOCOBALAMIN 500 MCG TAB PO SCH (07:59)
[2020-02-03] MEDS: PANTOPRAZOLE 40 MG TABLET PO SCH (07:59)
[2020-02-03] MEDS: ENOXAPARIN 40 MG/0.4 ML SYRINGE SQ SCH (07:59)
[2020-02-03] MEDS: INSULIN ASPART (NovoLOG) 100 UNIT/ML VIAL SQ SCH ×2 (07:59→12:03)
[2020-02-03] MEDS: ASCORBIC ACID 500 MG TAB PO SCH (07:59)
[2020-02-03] MEDS: ISOSORBIDE MONONITRATE ER 30 MG TAB.ER.24H PO SCH (07:59)
[2020-02-03] MEDS: LOSARTAN 50 MG TAB PO SCH (07:59)
[2020-02-03] MEDS: FLUCONAZOLE ORAL SUSP 1,400 MG/35 ML BOTTLE PO SCH (08:00)
--- NOTE | 2020-02-03 09:36 | P.PN ---
Subjective Progress Note Date: 02/03/20 Principal diagnosis: Diverticular abscess Patient feels well today. Denies pain. White blood cell count 9.3, hemoglobin 8.3. No rectal bleeding or melena. Patient states she is going home today. Objective - Vital Signs Vital signs: Vital Signs Temp 97.7 F 02/03/20 06:52 Pulse 94 02/03/20 08:00 Resp 16 02/03/20 08:00 BP 169/86 02/03/20 06:52 Pulse Ox 100 02/03/20 06:52 Intake & Output 02/02/20 02/03/20 02/03/20 18:59 06:59 18:59 Intake Total 480 Output Total 710 1 Balance -230 -1 Intake: Oral 480 Output: Urine 710 Coude 60 Stool 1 Other: Voiding Method Indwelling Catheter Toilet Toilet Urinal Urinal Diaper Diaper # Voids 1 # Bowel Movements 1 1 - Exam Abdomen: Soft, nontender, nondistended, recent scars noted, drain in place with purulent output - Labs CBC & Chem 7: 02/03/20 06:59 02/01/20 07:12 Labs: Abnormal Lab Results - Last 24 Hours (Table) 02/02/20 02/02/20 02/02/20 Range/Units 11:18 16:29 16:45 RBC (4.30-5.90) m/uL Hgb (13.0-17.5) gm/dL Hct (39.0-53.0) % MCHC (31.0-37.0) g/dL RDW (11.5-15.5) % POC Glucose (mg/dL) 169 H 68 L 60 L (75-99) mg/dL 02/02/20 02/02/20 02/03/20 Range/Units 18:03 20:13 02:12 RBC (4.30-5.90) m/uL Hgb (13.0-17.5) gm/dL Hct (39.0-53.0) % MCHC (31.0-37.0) g/dL RDW (11.5-15.5) % POC Glucose (mg/dL) 126 H 147 H 144 H (75-99) mg/dL 02/03/20 02/03/20 Range/Units 06:51 06:59 RBC 2.98 L (4.30-5.90) m/uL Hgb 8.3 L (13.0-17.5) gm/dL Hct 28.2 L (39.0-53.0) % MCHC 29.4 L (31.0-37.0) g/dL RDW 15.7 H (11.5-15.5) % POC Glucose (mg/dL) 126 H (75-99) mg/dL Assessment and Plan (1) Intra-abdominal abscess Narrative/Plan: Patient seems to be improved. No further surgical plans at this time. Keep drain in place for now. Continue antibiotics. Current Visit: No Status: Acute Code(s): K65.1 - PERITONEAL ABSCESS SNOMED Code(s): 63797826
[2020-02-03 11:38] LABS: Glucose,Whole Blood 159 mg/dL (75-99)
--- NOTE | 2020-02-03 12:34 | PN ---
PROGRESS NOTE DATE OF SERVICE: 02/03/2020 Patient is an 79-year-old pleasant white male admitted to the hospital with acute severe anemia and acute GI bleed. He had an upper endoscopy 3 days ago and was noted to have a bleeding duodenal ulcer, underwent epinephrine and cautery and doing well. No further bleeding. Overall he is feeling much better. He wants to go home today. PHYSICAL EXAMINATION: VITAL SIGNS: Blood pressure 166/83, pulse rate 95, temperature 97.7. HEENT: Examination unremarkable. Conjunctivae pink. Sclerae anicteric. Oral cavity no lesions. NECK: No JVD or lymph node enlargement. CHEST: Clear to auscultation. HEART: Regular rate and rhythm. ABDOMEN: Soft. Bowel sounds are positive. EXTREMITIES: No pedal edema. NEUROLOGIC: Alert and oriented x3. No focal deficits. LABS: From today WBC 9.3, hemoglobin 8.3, platelets 382. BUN 9, creatinine 1.39. IMPRESSION: 1. Acute upper gastrointestinal bleed status post EGD 3 days ago, noted to have bleeding duodenal ulcer. Presently on Protonix 40 mg twice daily. No further bleeding. Hemoglobin stable at 8.5 g/dL. 2. Recent diverticular abscess. Had a CT-guided drainage catheter placed [address] Smith following the patient closely. 3. Newly diagnosed bladder cancer. Landin catheter was removed yesterday. Patient doing well. RECOMMENDATION: 1. Continue with Protonix 40 mg twice daily. 2. Avoid NSAIDs. 3. If he is going home today, he was advised to continue with Protonix twice daily and follow up in the office in 2-3 weeks. Thank you for this consultation. MMODL / IJN: [id number] /
[2020-02-03 14:27] VITALS: BP 152/73; PULSE 90; TEMP 98.2
--- NOTE | 2020-02-03 15:55 | PN ---
PROGRESS NOTE DATE OF SERVICE: 02/03/2020 REASON FOR FOLLOWUP: Abdominal abscess. INTERVAL HISTORY: The patient is currently afebrile. The patient is feeling better. Breathing comfortably. The patient denies having any chest pain or shortness of breath or cough. Abdominal pain is currently controlled. No nausea, vomiting or diarrhea. PHYSICAL EXAMINATION: Blood pressure 150/73 with a pulse of 92, temperature 98.2. He is 99% on room air. General description is an elderly male lying in bed in no distress. Respiratory system: Unlabored breathing, clear to auscultation anteriorly. Heart S1, S2. Regular rate and rhythm. Abdomen is soft, no tenderness. LABS: White count normal at 9.3. DIAGNOSTIC IMPRESSION AND PLAN: Patient with abdominal abscess status post CT-guided drainage. Culture with multiple pathogens. Patient was clinical responding to the Unasyn and Diflucan that will be switched over to oral Augmentin and Diflucan for about a week. Drainage catheter should be discontinued. Continue supportive care. MMODL / IJN: [id number] /
--- NOTE | 2020-02-03 20:55 | P.DS ---
Providers Date of admission: 01/30/20 05:24 Expected date of discharge: 02/03/20 Attending physician: Alexander Carrillo Consults: 01/30/20 14:22 Consult Physician Routine Consulting Provider: Nahomy Andres Consult Reason/Comments: possible GI bleed Do you want consulting provider notified?: Yes 01/30/20 16:15 Consult Physician Routine Consulting Provider: Ryan Garcia Consult Reason/Comments: diverticular abcess, known to you. anemia Do you want consulting provider notified?: Yes 02/01/20 17:54 Consult Physician Routine Consulting Provider: Alexandre Syed Consult Reason/Comments: follow-up antibiotics for abscess Do you want consulting provider notified?: Yes Primary care physician: Pola Rodriguez [facility] Course: Chief Complaint: Decreased hemoglobin History of presenting complaint: This is a 79-year-old patient resident of [facility], before by Dr. Pola Rodriguez. Chronic stable medical conditions include diabetes, chronic kidney disease, coronary artery disease with stent, hypertension, kidney stones bowel and bladder cancer. On December 07 patient had a cystoscopy that showed severe hemorrhagic cystitis. He's had prior back surgery and is also had surgery for his cancer and bladder. He was discharged a week ago was found to have a diverticular abscess with multiple orgasm growing. Drain was placed. Discharged on IV Unasyn and Diflucan. Patient states she is woken up early also this morning and EMS was called because hemoglobin was low. Possibly patient been having dark stools unclear. Patient not sure about the history. No chest pain or shortness of breath no fever no chills. Patient does feel weak and tired. 1 unit of blood was ordered. EGD was found to have- a deep ulceration in the duodenal bulb along the duodenal sweep with a small clot and losing-status post epinephrine with good hemostasis. Also antral gastritis. Placed on PPI. No further bleeding. Aspirin Plavix has been held. 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 Because of low sugars dose of Lantus was cut back. Also seen by Dr. Lopez from [place]. IV Unasyn was continued. Repeat computed tomography scan abdomen showed resolution of the abscess from last admission. Being sent over to oral antibiotics. Today-stable. No new issues. Being changed to oral antibiotics. Discussion and discharge planning more than 35 minutes Consultation: Dr. Syed from [place] [facility]. Dr. Garcia from general surgery Physical examination: VITAL SIGNS: 98.2, 90, 16, 152/73, 99% room air GENERAL: Laying in bed, comfortable EYES: [Pupils equal. Conjunctiva pale. HEENT: External appearance of nose and ears normal, oral cavity grossly normal. NECK: JVD not raised; masses not palpable. HEART: First and second heart sounds are normal; no edema. LUNGS: Respiratory rate normal; clear to auscultation. ABDOMEN: Soft, minimal tenderness, liver spleen not palpable, no masses palpable. Left lower quadrant Drain in place PSYCH: Alert and oriented x3; mood and affect normal. 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 Repeat computed tomography scan showing resolution of the abscess. Disposition: Home Patient Condition at Discharge: Stable Plan - Discharge Summary Discharge Rx Participant: No New Discharge Prescriptions: New Amoxicillin/Potassium Clav [Augmentin 875-125 Tablet] 1 tab PO Q12HR #14 tab Pantoprazole [Protonix] 40 mg PO AC-BID #[address] tablet[address] Olivier Cyanocobalamin [Vitamin B-12] 500 mcg PO DAILY@0900 Cholecalciferol [Vitamin D3 (25 Mcg = 1000 Iu)] 1,000 unit PO DAILY@0900 Ascorbic Acid [Vitamin C] 500 mg PO DAILY@0900 Losartan Potassium 50 mg PO DAILY@0900 Insulin Aspart [NovoLOG] See Protocol SQ AC-TID Levothyroxine Sodium [Synthroid] 50 mcg PO DAILY@0600 Isosorbide Mononitrate [Isosorbide Mononitrate ER] 30 mg PO DAILY@0900 Calcium Carbonate [Tums] 1,000 mg PO Q6H PRN PRN Reason: Heartburn Ondansetron HCl [Zofran] 8 mg PO Q8H PRN PRN Reason: Nausea And Vomiting Acetaminophen Tab [Tylenol] 650 mg PO Q4H PRN PRN Reason: Pain Mirtazapine [Remeron] 15 mg PO HS@2100 Fluconazole [Diflucan] 200 mg PO DAILY@0900 #7 tab Changed Insulin Glargine,Hum.rec.anlog [Basaglar Kwikpen U-100] 20 unit SQ DAILY #0 Discontinued Clopidogrel [Plavix] 75 mg PO HS@2100 Aspirin [Howard Aspirin EC] 81 mg PO DAILY@0900 Cholestyramine (with Sugar) [Questran Packet] 4 gm PO BID@1000,1800 30 Days #60 packet Ampicillin-Sulbactam [Unasyn] 3 gm IVPB Q6H Enoxaparin [Lovenox] 40 mg SQ DAILY@0900 Discharge Medication List Ascorbic Acid [Vitamin C] 500 mg PO DAILY@0903/31/18 [History] Cholecalciferol [Vitamin D3 (25 Mcg = 1000 Iu)] 1,000 unit PO DAILY@0903/31/18 [History] Cyanocobalamin [Vitamin B-12] 500 mcg PO DAILY@0903/31/18 [History] Losartan Potassium 50 mg PO DAILY@0903/31/18 [History] Insulin Aspart [NovoLOG] See Protocol SQ AC-TID 08/01/18 [History] Isosorbide Mononitrate [Isosorbide Mononitrate ER] 30 mg PO DAILY@0910/10/19 [History] Levothyroxine Sodium [Synthroid] 50 mcg PO DAILY@0610/10/19 [History] Acetaminophen Tab [Tylenol] 650 mg PO Q4H PRN 01/30/20 [History] Calcium Carbonate [Tums] 1,000 mg PO Q6H PRN 01/30/20 [History] Mirtazapine [Remeron] 15 mg PO HS@2100 01/30/20 [History] Ondansetron HCl [Zofran] 8 mg PO Q8H PRN 01/30/20 [History] Amoxicillin/Potassium Clav [Augmentin 875-125 Tablet] 1 tab PO Q12HR #14 tab 02/03/20 [Rx] Fluconazole [Diflucan] 200 mg PO DAILY@0900 #7 tab 02/03/20 [Rx] Insulin Glargine,Hum.rec.anlog [Basaglar Kwikpen U-100] 20 unit SQ DAILY #0 02/03/20 [Rx] Pantoprazole [Protonix] 40 mg PO AC-BID #60 tablet. 02/03/20 [Rx] Follow up Appointment(s)/Referral(s): cloth finishing range operator chiefdr [Other] - 1 Week Nahomy Andres MD [STAFF PHYSICIAN] - 2 Weeks [facility], [NON-STAFF] - 1-2 Days Pola Rodriguez MD [Primary Care Provider] - 1 Week Ryan Garcia MD [STAFF PHYSICIAN] - 1 Week Activity/Diet/Wound Care/Special Instructions: cbc/bmp - 5 days
== END 2020-02-03 14:40 | disposition home health service (06) | DRG 377 ==
LOC: EC 03:07 → 4SSUR 05:24
PROVIDERS: ADMIT Hospitalist; ATTEND Hospitalist
PROC: 30243N1 Transfusion of Nonautologous Red Blood Cells into Central Vein, Percutaneous Approach (ICD-10-PCS; 2020-01-30)
PROC: 0W3P8ZZ Control Bleeding in Gastrointestinal Tract, Via Natural or Artificial Opening Endoscopic (ICD-10-PCS; principal; 2020-01-31 08:45)
PROC: 3E0G8GC Introduction of Other Therapeutic Substance into Upper GI, Via Natural or Artificial Opening Endoscopic (ICD-10-PCS; principal; 2020-01-31 08:45)
PROC: 0DB78ZX Excision of Stomach, Pylorus, Via Natural or Artificial Opening Endoscopic, Diagnostic (ICD-10-PCS; principal; 2020-01-31 08:45)
DX: K26.0 Acute duodenal ulcer with hemorrhage (principal); K65.1 Peritoneal abscess; D62 Acute posthemorrhagic anemia; N13.2 Hydronephrosis with renal and ureteral calculous obstruction; N32.1 Vesicointestinal fistula; I24.8 Other forms of acute ischemic heart disease; K29.00 Acute gastritis without bleeding; E11.649 Type 2 diabetes mellitus with hypoglycemia without coma; D63.8 Anemia in other chronic diseases classified elsewhere; C67.9 Malignant neoplasm of bladder, unspecified; E11.22 Type 2 diabetes mellitus with diabetic chronic kidney disease; N18.3 Chronic kidney disease, stage 3 (moderate); E03.9 Hypothyroidism, unspecified; E78.00 Pure hypercholesterolemia, unspecified; I12.9 Hypertensive chronic kidney disease with stage 1 through stage 4 chronic kidney disease, or unspecified chronic kidney disease; I25.10 Atherosclerotic heart disease of native coronary artery without angina pectoris; F32.9 Major depressive disorder, single episode, unspecified; F41.9 Anxiety disorder, unspecified; K31.7 Polyp of stomach and duodenum; K57.90 Diverticulosis of intestine, part unspecified, without perforation or abscess without bleeding; Z79.82 Long term (current) use of aspirin; Z79.890 Hormone replacement therapy; Z79.02 Long term (current) use of antithrombotics/antiplatelets; Z79.4 Long term (current) use of insulin; Z79.899 Other long term (current) drug therapy; Z88.5 Allergy status to narcotic agent; Z88.1 Allergy status to other antibiotic agents; Z91.041 Radiographic dye allergy status; Z95.5 Presence of coronary angioplasty implant and graft; Z87.891 Personal history of nicotine dependence; Z87.442 Personal history of urinary calculi; Z85.038 Personal history of other malignant neoplasm of large intestine
CPT/HCPCS: 36415; 36430; 43255; 74176; 80048; 80053; 83036; 83605; 84484; 85025; 85027; 85730; 86850; 86900; 86901; 86920; 88305; 96365; 99284

== ENCOUNTER → 2020-03-09 | Outpatient (CLI) | payer MEDICARE ==
--- NOTE | 2020-03-11 12:50 | PE ---
Nuclear medicine PET/CT HISTORY: Bladder cancer, initial Patient received 13.6 mCi F-18 FDG intravenously in delayed scanning was performed from the skull bas e to the mid thighs. Localization and attenuation correction CT scan was performed. Correlation CT abdomen pelvis 02/01/2020 Chest and neck: There is no supraclavicular or cervical adenopathy. Bilateral pleural effusions are p resent, right effusion has increased in size, left effusion is new compared to prior CT. There is no mediastinal, axillary, or hilar adenopathy. No evident suspicious lung mass. Subpleural nodule on axi al image 82 in the right upper lobe is subcentimeter in size and a questionable clinical significance . No suspicious uptake. There are coronary calcifications. No pericardial effusion. ABDOMEN: Right-sided hydronephrosis is present, there is right-sided hydroureter. There is some mild uptake associated with the urinary bladder wall which shows abnormal thickening. Left kidney shows hy dronephrosis as well as nonobstructive calculi noted bilaterally, no significant excretion noted from the left kidney, left hydroureter is also present. Diverticular change is present throughout the col on. There is a right inguinal hernia present with some probable fluid present. There is some inflamma tory change present in the left hemipelvis, there is some luminal air, findings may be related to kanwal or diverticular abscess, no significant fluid is noted to be undrained. There is a staple line suspec ileana along the sigmoid colon, some local inflammatory change. Extensive diverticular changes are again seen, colonic wall thickening is indeterminate. Probable cysts within the left lobe of the liver. Osseous structures show no suspicious uptake. Postop changes are noted to the lower lumbar spine. The re is diffuse muscular uptake, some uptake along the ribs which is thought to be physiologic. IMPRESSION: Postop changes. There is a contained air collection which is possibly related to patient' s prior abscess, is extraluminal originating from the region of patient's sigmoid colon. Abnormal nory earance of the urinary bladder likely related to patient's history of bladder carcinoma. Bilateral pl eural effusions. Extensive diverticulosis. Additional findings above.
== END | disposition home or self-care (01) ==
LOC: RADPETMAIN 09:25
PROVIDERS: ATTEND Internal Medicine Hematology & Oncology
DX: J90 Pleural effusion, not elsewhere classified (principal); Z98.890 Other specified postprocedural states; K57.90 Diverticulosis of intestine, part unspecified, without perforation or abscess without bleeding; C67.8 Malignant neoplasm of overlapping sites of bladder
CPT/HCPCS: 78815; A9552

== ENCOUNTER 2020-03-14 15:38 | Inpatient (IN) | payer MEDICARE ==
--- NOTE | 2020-03-14 16:34 | ED ---
General Adult HPI - General Chief complaint: Shortness of Breath Stated complaint: SOB - sent by Claudia Time Seen by Provider: 03/14/20 15:39 Source: patient, RN notes reviewed, old records reviewed Mode of arrival: wheelchair Limitations: no limitations - History of Present Illness Initial comments: 79-year-old male with complicated recent medical history including bladder cancer, intra-abdominal abscess, and bilateral pleural effusion. Patient was sent over from his oncologist's office for evaluation of worsening dyspnea. He states he's had worsening dyspnea, lower extremity swelling over the past 2 weeks. He's was noted on outpatient laboratory testing to have a elevated serum creatinine at 3.5. It was also noted on outpatient PET scan that the patient had developed pleural effusions. He was sent over from the oncologist office for evaluation. He denies fever he has had some chills. He denies central chest pain. He does report a worsening dyspnea. He was a previous smoker, although he has not smoked in 30 years. No history of COPD. History of CAD status post stent, no history of congestive heart failure. - Related Data Home Medications Medication Instructions Recorded Confirmed Ascorbic Acid [Vitamin C] 500 mg PO DAILY@89903/31/18 01/30/20 Cholecalciferol [Vitamin D3 (25 1,000 unit PO DAILY@89903/31/18 01/30/20 Mcg = 1000 Iu)] Cyanocobalamin [Vitamin B-12] 500 mcg PO DAILY@89903/31/18 01/30/20 Losartan Potassium 50 mg PO DAILY@89903/31/18 01/30/20 Insulin Aspart [NovoLOG] See Protocol SQ AC-TID 08/01/18 01/30/20 Isosorbide Mononitrate [Isosorbide 30 mg PO DAILY@89910/10/19 01/30/20 Mononitrate ER] Levothyroxine Sodium [Synthroid] 50 mcg PO DAILY@59910/10/19 01/30/20 Acetaminophen Tab [Tylenol] 650 mg PO Q4H PRN 01/30/20 01/30/20 Calcium Carbonate [Tums] 1,000 mg PO Q6H PRN 01/30/20 01/30/20 Mirtazapine [Remeron] 15 mg PO HS@2100 01/30/20 01/30/20 Ondansetron HCl [Zofran] 8 mg PO Q8H PRN 01/30/20 01/30/20 Previous Rx's Medication Instructions Recorded Amoxicillin/Potassium Clav 1 tab PO Q12HR #14 tab 02/03/20 [Augmentin 875-125 Tablet] Fluconazole [Diflucan] 200 mg PO DAILY@0900 #7 tab 02/03/20 Insulin Glargine,Hum.rec.anlog 20 unit SQ DAILY #0 02/03/20 [Basaglar Kwikpen U-100] Pantoprazole [Protonix] 40 mg PO AC-BID #60 tablet. 02/03/20 Allergies Allergy/AdvReac Type Severity Reaction Status Date / Time ciprofloxacin [From Cipro] Allergy Swelling Verified 03/14/20 15:50 propoxyphene [From Darvon] Allergy Hallucinati Verified 03/14/20 15:50 ons Iodinated Contrast Media AdvReac Dyspnea Verified 03/14/20 15:50 [Iodinated Contrast- Oral and IV Dye] Review of Systems ROS Statement: Those systems with pertinent positive or pertinent negative responses have been documented in the HPI. ROS Other: All systems not noted in ROS Statement are negative. Past Medical History Past Medical History: Cancer, Chest Pain / Angina, Diabetes Mellitus, Hypertension Additional Past Medical History / Comment(s): shortness of breath, bowel and bladder ca History of Any Multi-Drug Resistant Organisms: None Reported Past Surgical History: Back Surgery Additional Past Surgical History / Comment(s): hand surgery. back surgery with 4 screws and 2 rods currently had surgery for cancer on bladder on on the outside of his colon, has drain to LLQ abdomen Past Anesthesia/Blood Transfusion Reactions: No Reported Reaction Additional Past Anesthesia/Blood Transfusion Reaction / Comment(s): son allergic to one type of anesthesia Past Psychological History: No Psychological Hx Reported Smoking Status: Former smoker Past Alcohol Use History: None Reported Past Drug Use History: None Reported - Past Family History Mother Family Medical History: Unable to Obtain Additional Family Medical History / Comment(s): adopted General Exam Limitations: no limitations General appearance: alert, in distress (Mild respiratory distress) Head exam: Present: atraumatic, normocephalic Eye exam: Present: normal appearance, PERRL ENT exam: Present: normal exam Neck exam: Present: normal inspection. Absent: tenderness, meningismus Respiratory exam: Present: respiratory distress, wheezes, decreased breath so unds Cardiovascular Exam: Present: normal rhythm, tachycardia GI/Abdominal exam: Present: soft. Absent: distended, tenderness, guarding Extremities exam: Present: pedal edema, calf tenderness (Bilateral) Neurological exam: Present: alert, oriented X3 Psychiatric exam: Present: normal affect, normal mood Skin exam: Present: warm, dry, intact, pallor. Absent: cyanosis, diaphoretic Course Vital Signs 03/14/20 15:47 Temperature 98.0 F Pulse Rate 117 H Respiratory 22 Rate Blood Pressure 129/60 O2 Sat by Pulse 98 Oximetry EKG Findings - EKG Comments: EKG Findings:: EKG: Atrial fibrillation with a right bundle branch block, rate of 94, QRS duration 124, QTC 490, no ST segment elevation, PVC Medical Decision Making - Medical Decision Making 79-year-old male presenting from outpatient oncology office with dyspnea. Patient has been retaining fluid, decreased urine output. Workup reveals a chest x-ray shows small bilateral effusions. He is in acute renal failure with a creatinine of 8, his potassium is significantly elevated at 6.8. He is acidotic with CO2 of 11. He has a stable hemoglobin for this patient at 8.8, normal white blood cell count. He is treated for hyperkalemia with the medically. The case is discussed with Dr. Zaragoza who will arrange for hemodialysis as well as Dr. Hernandez who will place dialysis access catheter. Patient has been admitted to Dr. geoion was aware of the patient. - Lab Data Result diagrams: 03/14/20 16:23 03/14/20 16:23 Lab Results 03/14/20 03/14/20 03/14/20 Range/Units 16:23 16:23 16:23 WBC 10.3 (3.8-10.6) k/uL RBC 3.40 L (4.30-5.90) m/uL Hgb 8.8 L (13.0-17.5) gm/dL Hct 31.1 L (39.0-53.0) % MCV 91.4 (80.0-100.0) fL MCH 25.9 (25.0-35.0) pg MCHC 28.3 L (31.0-37.0) g/dL RDW 16.6 H (11.5-15.5) % Plt Count 384 (150-450) k/uL Neutrophils % 78 % Lymphocytes % 12 % Monocytes % 6 % Eosinophils % 2 % Basophils % 1 % Neutrophils # 8.0 H (1.3-7.7) k/uL Lymphocytes # 1.2 (1.0-4.8) k/uL Monocytes # 0.6 (0-1.0) k/uL Eosinophils # 0.2 (0-0.7) k/uL Basophils # 0.1 (0-0.2) k/uL Hypochromasia Marked Anisocytosis Slight PT 10.8 (9.0-12.0) sec INR 1.1 (<1.2) APTT 26.5 (22.0-30.0) sec Sodium 140 (137-145) mmol/L Potassium 6.8 H* (3.5-5.1) mmol/L Chloride 114 H (98-107) mmol/L Carbon Dioxide 11 L (22-30) mmol/L Anion Gap 15 mmol/L BUN 67 H (9-20) mg/dL Creatinine 8.20 H* (0.66-1.25) mg/dL Est GFR (CKD-EPI)AfAm 6 (>60 ml/min/1.73 sqM) Est GFR (CKD-EPI)NonAf 6 (>60 ml/min/1.73 sqM) Glucose 135 H (74-99) mg/dL Plasma Lactic Acid Alex (0.7-2.0) mmol/L Calcium 9.6 (8.4-10.2) mg/dL Magnesium 1.9 (1.6-2.3) mg/dL Total Bilirubin 0.5 (0.2-1.3) mg/dL AST 23 (17-59) U/L ALT 14 (4-49) U/L Alkaline Phosphatase 87 (38-126) U/L Troponin I (0.000-0.034) ng/mL Total Protein 7.2 (6.3-8.2) g/dL Albumin 3.9 (3.5-5.0) g/dL 03/14/20 03/14/20 Range/Units 16:23 16:23 WBC (3.8-10.6) k/uL RBC (4.30-5.90) m/uL Hgb (13.0-17.5) gm/dL Hct (39.0-53.0) % MCV (80.0-100.0) fL MCH (25.0-35.0) pg MCHC (31.0-37.0) g/dL RDW (11.5-15.5) % Plt Count (150-450) k/uL Neutrophils % % Lymphocytes % % Monocytes % % Eosinophils % % Basophils % % Neutrophils # (1.3-7.7) k/uL Lymphocytes # (1.0-4.8) k/uL Monocytes # (0-1.0) k/uL Eosinophils # (0-0.7) k/uL Basophils # (0-0.2) k/uL Hypochromasia Anisocytosis PT (9.0-12.0) sec INR (<1.2) APTT (22.0-30.0) sec Sodium (137-145) mmol/L Potassium (3.5-5.1) mmol/L Chloride (98-107) mmol/L Carbon Dioxide (22-30) mmol/L Anion Gap mmol/L BUN (9-20) mg/dL Creatinine (0.66-1.25) mg/dL Est GFR (CKD-EPI)AfAm (>60 ml/min/1.73 sqM) Est GFR (CKD-EPI)NonAf (>60 ml/min/1.73 sqM) Glucose (74-99) mg/dL Plasma Lactic Acid Alex 1.4 (0.7-2.0) mmol/L Calcium (8.4-10.2) mg/dL Magnesium (1.6-2.3) mg/dL Total Bilirubin (0.2-1.3) mg/dL AST (17-59) U/L ALT (4-49) U/L Alkaline Phosphatase (38-126) U/L Troponin I 0.027 (0.000-0.034) ng/mL Total Protein (6.3-8.2) g/dL Albumin (3.5-5.0) g/dL Critical Care Time Critical Care Time: Yes Total Critical Care Time: 35 Disposition Clinical Impression: Acute renal failure, Metabolic acidosis, Hyperkalemia, Bilateral pleural effusion Disposition: ADMITTED IP TO THIS [facility] Condition: Serious Is patient prescribed a controlled substance at d/c from ED?: No Referrals: Pola Rodriguez MD [Primary Care Provider] - 1-2 days Decision to Admit Reason: Admit from EC Decision Date: 03/14/20 Decision Time: 17:51
[2020-03-14 16:38] LABS: Anisocytosis Slight; Basophils # (A) 0.1 k/uL (0-0.2); Basophils % (A) 1 %; Eosinophils # (A) 0.2 k/uL (0-0.7); Eosinophils % (A) 2 %; HCT 31.1 % (39.0-53.0); HGB 8.8 gm/dL (13.0-17.5); Hypochromasia Marked; Lymphocytes # (A) 1.2 k/uL (1.0-4.8); Lymphocytes % (A) 12 %; MCH 25.9 pg (25.0-35.0); MCHC 28.3 g/dL (31.0-37.0); MCV 91.4 fL (80.0-100.0); Mean Platelet Volume 7.4; Monocytes # (A) 0.6 k/uL (0-1.0); Monocytes % (A) 6 %; Neutrophils % (A) 78 %; Platelet Count 384 k/uL (150-450); RDW 16.6 % (11.5-15.5); WBC 10.3 k/uL (3.8-10.6)
[2020-03-14 16:40] LABS: Albumin 3.9 g/dL (3.5-5.0); Calcium 9.6 mg/dL (8.4-10.2); Magnesium 1.9 mg/dL (1.6-2.3); Total Bilirubin 0.5 mg/dL (0.2-1.3); Total Protein 7.2 g/dL (6.3-8.2)
[2020-03-14 16:42] LABS: INR 1.1 (<1.2); Partial Thromboplastin Time 26.5 sec (22.0-30.0); Prothrombin Time 10.8 sec (9.0-12.0)
[2020-03-14 16:45] LABS: Potassium 6.8 mmol/L (3.5-5.1)
[2020-03-14] MEDS ORDERED: SODIUM BICARB 8.4% 50 ML SYR (1 MEQ/ML) IV ONE (16:53)
[2020-03-14] MEDS ORDERED: CALCIUM GLUCONATE 1 GM in SODIUM CHLORIDE 0.9% 100 ML IVPB ONE (16:53)
[2020-03-14] MEDS ORDERED: SODIUM POLYSTYRENE SULFONATE 15 GM/60 ML BOTTLE PO ONE (16:53)
[2020-03-14] MEDS ORDERED: DEXTROSE 50% SYRINGE 50 ML IVP ONE (16:53)
[2020-03-14] MEDS ORDERED: INSULIN REGULAR 100 UNIT/ML VIAL IV ONE (16:53)
--- NOTE | 2020-03-14 17:03 | XR ---
EXAMINATION TYPE: XR chest 2V DATE OF EXAM: 03/14/2020 CLINICAL HISTORY: Difficulty breathing . History of bladder cancer. TECHNIQUE: Frontal and lateral views of the chest are obtained. COMPARISON: Chest radiograph 01/12/2020. PET/CT 03/09/2020. FINDINGS: The cardiomediastinal silhouette is within normal limits for size. Pulmonary vasculature i s normal. Small bilateral pleural effusions redemonstrated. Right basilar airspace opacities. No disp laced osseous fracture. IMPRESSION: Redemonstrated small bilateral pleural effusions.
[2020-03-14] MEDS ORDERED: NALOXONE 0.4 MG/ML 1 ML VIAL IV PRN (17:22)
[2020-03-14] MEDS ORDERED: HYDROmorphone 1 MG/ML 1 ML SYRINGE IVP STA ×2 (17:42→18:04)
[2020-03-14] MEDS ORDERED: HEPARIN SODIUM 1,000 UN/ML (10ML VL) MISCELLANE ONE (18:22)
[2020-03-14 18:41] LABS: Glucose,Whole Blood 107 mg/dL (75-99)
[2020-03-14] MEDS: DEXTROSE 5% IN WATER 1,000 ML with SODIUM BICARB (1 MEQ/ML) 150 ML IV SCH (18:53)
[2020-03-14 20:31] LABS: Anisocytosis Slight; Basophils # (A) 0.1 k/uL (0-0.2); Basophils % (A) 1 %; Eosinophils # (A) 0.3 k/uL (0-0.7); Eosinophils % (A) 3 %; HCT 28.2 % (39.0-53.0); HGB 8.4 gm/dL (13.0-17.5); Hypochromasia Marked; Lymphocytes # (A) 1.9 k/uL (1.0-4.8); Lymphocytes % (A) 16 %; MCH 26.8 pg (25.0-35.0); MCHC 29.7 g/dL (31.0-37.0); Mean Platelet Volume 7.5; Monocytes # (A) 0.7 k/uL (0-1.0); Monocytes % (A) 6 %; Neutrophils # (A) 8.6 k/uL (1.3-7.7); Neutrophils % (A) 72 %; Platelet Count 403 k/uL (150-450); RBC 3.13 m/uL (4.30-5.90); RDW 16.6 % (11.5-15.5); WBC 12.1 k/uL (3.8-10.6)
[2020-03-14 20:48] LABS: Albumin 3.5 g/dL (3.5-5.0); Calcium 9.6 mg/dL (8.4-10.2); Phosphorus 7.5 mg/dL (2.5-4.5); Potassium 5.5 mmol/L (3.5-5.1); Total Bilirubin 0.3 mg/dL (0.2-1.3); Total Protein 6.6 g/dL (6.3-8.2)
[2020-03-14] MEDS ORDERED: ONDANSETRON 4 MG/2 ML VIAL IVP PRN (22:38)
--- NOTE | 2020-03-15 00:45 | CONS ---
CONSULTATION This is an 79-year-old gentleman who came to the emergency room with history of acute on chronic failure. The patient came with potassium of 6.8 and creatinine of 8.2 and BUN 67. Consulted for placement of urgent dialysis catheter. MEDICAL HISTORY: History of coronary artery disease, post coronary artery stent. History of hypertension, type 2 diabetes mellitus, history of CA of the bladder. PERSONAL HISTORY: Patient is allergic to DARVON, DARVOCET, IODINE, CIPRO. SURGICAL HISTORY: Patient had a history of the urinary bladder cancer. PHYSICAL EXAMINATION: Patient was seen in the Intensive Care Unit. NECK: Supple. Trachea central. CHEST: Clear. ABDOMEN: Soft. Femorals are palpable. IMPRESSION: 1. Acute on chronic renal failure. 2. High potassium. PLAN: Placement of a dialysis catheter. Risks and complications discussed. MMODL / IJN: [id number] /
--- NOTE | 2020-03-15 05:48 | PCN ---
PROCEDURE NOTE PREOPERATIVE DIAGNOSIS: Acute on chronic renal failure with high potassium. PROCEDURE: With IV sedation, local anesthesia, placement of dialysis catheter right femoral approach. DESCRIPTION OF THE PROCEDURE: The right groin was prepped and draped in usual sterile manner and 1% lidocaine plain infiltrated. Micropuncture introduced right common femoral vein micropuncture guidewire was passed and 4-Taiwanese dilator advanced on top of the guidewire. After that, we passed a 4-Taiwanese dilator. Through the dilator, we passed a regular guidewire which was parked at the inferior vena cava without any resistance. Then the dilator was advanced and triple-lumen dialysis catheter advanced on top of the guidewire, flushed with heparin saline and hep-locked, secured with 3-0 Vicryl. Dressing applied. Patient tolerated the procedure well. MMODL / IJN: [id number] /
[2020-03-15 06:14] LABS: Glucose,Whole Blood 163 mg/dL (75-99)
[2020-03-15] MEDS: LEVOTHYROXINE 50 MCG TAB PO SCH (06:31)
[2020-03-15] MEDS: PANTOPRAZOLE 40 MG TABLET PO SCH ×2 (06:31→16:40)
[2020-03-15] MEDS: INSULIN ASPART (NovoLOG) 100 UNIT/ML VIAL SQ SCH ×4 (06:31→19:47)
[2020-03-15] MEDS: ASCORBIC ACID 500 MG TAB PO SCH (08:42)
[2020-03-15] MEDS: CHOLECALCIFEROL 1,000 UNIT TAB PO SCH (08:42)
[2020-03-15] MEDS: CYANOCOBALAMIN 500 MCG TAB PO SCH (08:43)
[2020-03-15] MEDS ORDERED: LOSARTAN 50 MG TAB PO SCH (09:00)
[2020-03-15] MEDS: DEXTROSE 5% IN WATER 1,000 ML with SODIUM BICARB (1 MEQ/ML) 150 ML IV SCH (11:37)
--- NOTE | 2020-03-15 12:13 | CONS ---
CONSULTATION REASON FOR CONSULT: Renal failure, hyperkalemia. HISTORY OF PRESENT ILLNESS: Patient is an 79-year-old male who has a history of bladder cancer with previous history of intraabdominal abscess, who was sent over from the oncologist office due to abnormal renal function. Patient was found to have a serum creatinine of 8.2, potassium of 6.8, and CO2 of 11. He has not started chemotherapy yet. The patient did have some diarrhea, although not significant over the past couple of days. He did state that he was not eating as much. Patient denied any change in his urine output prior to admission. He has not been on any nonsteroidal anti-inflammatory agents. However, he was maintained on losartan prior to admission. Blood pressure has not been significantly low with systolic around 120-130 mmHg. Patient's previous creatinine was 1.3 mg/dL on 02/01/2020. A CAT scan done on 02/01/2020 showed bilateral hydronephrosis. At this time, patient is not sure if he has seen a urologist. An ultrasound has been ordered which is currently pending. Given the significant acidosis and acute kidney injury, patient did have a dialysis catheter placed and he is being dialyzed today. His potassium had improved to 5.5 last night. No labs are available from today. PAST MEDICAL HISTORY: Significant for recent bladder cancer, recent diverticular abscess, type 2 diabetes, hypertension, chronic back pain. PAST SURGICAL HISTORY: Hand surgery, back surgery. SOCIAL HISTORY: Patient is a former smoker. No history of drug abuse or alcohol abuse. MEDICATIONS: Prior to admission included Remeron, Zofran, Tums, Tylenol, Synthroid, insulin, vitamin C, vitamin B and D and losartan. ALLERGIES: Include Cipro, Darvon, IV contrast. REVIEW OF SYSTEMS: As per HPI. Other systems negative. PHYSICAL EXAMINATION: Patient is comfortable, awake, he is not in any acute distress. Alert, oriented x3. Blood pressure 130/69, heart rate 111 per minute, he is afebrile. Examination of the heart S1, S2. Examination of the lungs, bilateral breath sounds are heard. Abdomen is soft, nontender. Examination of the lower extremities shows edema 2+ bilaterally. CUSTOMER SUPPORT ADVISOR exam grossly intact. LABS: Show sodium 142, 5.5 potassium, chloride 115, CO2 is 14, BUN 66, creatinine 8.4, hemoglobin 8.4 g/dL. ASSESSMENT: 1. Acute kidney injury, most likely obstructive uropathy. Ultrasound has been ordered. Given the significant hyperkalemia and acidosis, the patient is being dialyzed. His repeat labs are pending from today and we will reassess his renal function prior to dialysis tomorrow. Check a postvoid residual and insert Landin catheter if elevated. 2. Recent diagnosis of bladder cancer, details not available. Consult Urology. 3. Metabolic acidosis and anion gap associated with advanced renal failure, expect improvement with dialysis. Patient is status post bicarb drip. 4. Hyperkalemia, associated with acute kidney injury, severe acidosis and most likely underlying obstructive uropathy. Patient also has had a previous history of GI bleed in January of this year during a hospitalization. 5. Recent GI bleed last month. 6. Recent diverticular abscess with intraabdominal drain and status post antibiotics. PLAN: HD today, possibly again in am. Check labs today and check ultrasound of the kidneys, check postvoid residual, insert Landin if needed. Consult Urology and depending on the results of the ultrasound. Avoid any nephrotoxic agents. Check iron profile. Thank you for this consultation. Will continue to follow the patient with you during his hospitalization. MMODL / IJN: [id number] / KT
[2020-03-15 12:18] LABS: Glucose,Whole Blood 110 mg/dL (75-99)
--- NOTE | 2020-03-15 12:43 | US ---
EXAMINATION TYPE: US kidneys/renal and bladder DATE OF EXAM: 03/15/2020 COMPARISON: NONE CLINICAL HISTORY: RF. EXAM MEASUREMENTS: Right Kidney: 10.6 x 5.9 x 5.5cm Left Kidney: 10.2 x 4.8 x 4.8 cm Right Kidney: Moderate hydronephrosis, nonobstructing renal stone measuring 0.8 x 0.7 x 0.8cm superio r pole right kidney Left Kidney: Moderate to marked nephrosis, limited visualization due to patient position Bladder: difficult to ascertain where anterior wall begins, posterior wall measures 1.4cm. Bladder vo lume is calculated at 24 mL IMPRESSION: 1. Moderate right and moderate to marked left hydronephrosis. 2. Nonobstructing superior pole right renal stone
--- NOTE | 2020-03-15 15:02 | P.CONS ---
History of Present Illness - Reason for Consult Consult date: 03/15/20 locally advanced bladder cancer. Progressive renal failure - History of Present Illness This is an 79 yr old male patient initially seen in consult at [facility] on 12/12/19. He had presented to the emergency room with hematuria and lower abdominal pain. Cystoscopy and biopsy by urology on 12/08/19 noted . 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 However, no muscularis propria was present for evaluation. CT of the abdomen and pelvis from 12/05/19 showed possible diverticulitis which was treated with Flagyl and Cipro Floxin. Kidney ultrasound on 12/15/19 had valencia wn mild hydronephrosis of the left kidney. CT of the chest and abdomen 12/12/19 confirmed left hydronephrosis with possible small fistula from midsigmoid to bladder. Colonoscopy in 10/17 had shown no evidence of fistula, however. The patient had repeat cystoscopy with transurethral resection on 12/13/19. This showed invasive high-grade urothelial carcinoma with lymphovascular invasion, with muscularis propria extensively involved by tumor. CT of the chest and a bone scan done in hospital showed no evidence of metastatic disease. The patient has multiple medical problems including history of angina, hypertension and diabetes. During this hospitalization. He also had evidence of renal insufficiency with some improvement with hydration. The ileocolic urination of the case. He was transferred to [facility] for surgical evaluation. He had a CT cystogram of the pelvis on 12/21/19 that showed resolution of previously noted area versus fistulous connection. There was no evidence of bladder perforation on this study. There evaluation of the bone scan noted a possible increase uptake in the left femur neck with underlying small sclerotic lesion. An MRI was performed on 12/24/19 that indicated that this was a bone island. The patient then underwent exploratory laporotomy on 12/25/19 with plan for bladder resection. He was found to have extensive adhesions between bladder, sigmoid colon and anterior abdominal wall. Frozen sections from the sigmoid colon revealed involvement with carcinoma. The patient also had 4 pelvic lymph nodes removed which were negative. Surgery was therefore aborted and he was recommended systemic therapy. He was seen for his first office visit on 01/12/20 the patient was showing evidence of dehydration and SIRS in the office and was sent in to the emergency room. CT scans revealed evidence of a 9+ centimeter diverticular abscess adjacent to the sigmoid colon. The patient had a drain placed with cultures growing multiple organisms. The improve slowly and was then discharged to [facility]. The patient was readmitted in early 02/17 with GI bleed with EGD showing a large antral ulcer. He was treated supportively with transfusion and PPIs. the patient was then discharged home. He completed antibiotics in mid 02/17. The patient had a PET scan done when seen in the office. This showed no evidence of metastatic disease with uptake essentially only in the bladder. However it did show bilateral pleural effusions, right greater than left. In addition, his labs showed marked renal insufficiency with creatinine 3.49 at this visit in 02/17 He notes marked increase in shortness of breath and can only ambulate a few feet with a cane. Appetite was diminished again. When seen in the office on 03/14/20 he noted marked increase in shortness of breath, as well as bilateral lower extremity swelling. He could only ambulate a few feet. Appetite had started to improve after his prior admission but was diminished again. He reported significant increase in weakness. Given his PET findings as well as current symptoms and known metabolic abnormalities he was directly to go to the ER where he was admitted for further management. Abdomen the ER showed marked progression of his renal insufficiency with creatinine and 8-9 range and potassium 6.8. Review of Systems Constitutional: Reports fatigue, Reports poor appetite, Reports weakness Eyes: denies blurred vision, denies pain Ears: bilateral: decreased hearing Ears, nose, mouth and throat: Denies headache, Denies sore throat Cardiovascular: Reports orthopnea, Reports shortness of breath Respiratory: Reports dyspnea Gastrointestinal: Reports diarrhea Genitourinary: Reports incontinence, Reports urinary frequency Musculoskeletal: Reports low back pain, Reports muscle weakness Integumentary: Denies pruritus, Denies rash Neurological: Reports weakness Psychiatric: Denies anxiety, Denies depression Endocrine: Reports fatigue, Reports weight change Hematologic/Lymphatic: Reports as per HPI Past Medical History Past Medical History: Cancer, Chest Pain / Angina, Diabetes Mellitus, Hypertension Additional Past Medical History / Comment(s): shortness of breath, bowel and bladder ca History of Any Multi-Drug Resistant Organisms: None Reported Past Surgical History: Back Surgery Additional Past Surgical History / Comment(s): hand surgery. back surgery with 4 screws and 2 rods currently had surgery for cancer on bladder on on the ou tside of his colon, has drain to LLQ abdomen Past Anesthesia/Blood Transfusion Reactions: No Reported Reaction Additional Past Anesthesia/Blood Transfusion Reaction / Comm: son allergic to one type of anesthesia Past Psychological History: No Psychological Hx Reported Smoking Status: Former smoker Past Alcohol Use History: None Reported Past Drug Use History: None Reported - Past Family History Mother Family Medical History: Unable to Obtain Additional Family Medical History / Comment(s): adopted Medications and Allergies Home Medications Medication Instructions Recorded Confirmed Type Ascorbic Acid [Vitamin C] 500 mg PO DAILY@0900 03/31/18 03/14/20 History Cholecalciferol [Vitamin D3 (25 1,000 unit PO DAILY@0900 03/31/18 03/14/20 History Mcg = 1000 Iu)] Cyanocobalamin [Vitamin B-12] 500 mcg PO DAILY@0900 03/31/18 03/14/20 History Losartan Potassium 50 mg PO DAILY@0900 03/31/18 03/14/20 History Insulin Aspart [NovoLOG] See Protocol SQ AC-TID 08/01/18 03/14/20 History Levothyroxine Sodium [Synthroid] 50 mcg PO DAILY@0600 10/10/19 03/14/20 History Pantoprazole [Protonix] 40 mg PO AC-BID #60 tablet. 02/03/20 03/14/20 Rx Allergies Allergy/AdvReac Type Severity Reaction Status Date / Time ciprofloxacin [From Cipro] Allergy Swelling Verified 03/14/20 18:58 propoxyphene [From Darvon] Allergy Hallucinati Verified 03/14/20 18:58 ons Iodinated Contrast Media AdvReac Dyspnea Verified 03/14/20 18:58 [Iodinated Contrast- Oral and IV Dye] Physical Exam Vitals: Vital Signs Temp Pulse Resp BP Pulse Ox 03/14/20 20:44 98.9 F 108 H 18 141/70 97 03/14/20 18:33 92 18 148/76 99 03/14/20 18:01 93 18 149/72 100 03/14/20 15:47 98.0 F 117 H 22 129/60 98 Intake and Output 03/14/20 03/14/20 03/14/20 06:59 14:59 22:59 Other: Weight 72.575 kg generalized weakness and fatigue - Constitutional General appearance: mild distress - EENT Eyes: EOMI, PERRLA ENT: normal oropharynx - Neck Neck: no lymphadenopathy Thyroid: bilateral: normal size - Respiratory Respiratory: bilateral: diminished (right greater than left) - Cardiovascular Rhythm: regular Heart sounds: normal: S1, S2 - Gastrointestinal General gastrointestinal: normal bowel sounds, soft - Integumentary Integumentary: normal - Neurologic Neurologic: CNII-XII intact - Musculoskeletal 2-3+ edema bilateral lower extremities Musculoskeletal: generalized weakness, strength equal bilaterally - Psychiatric Psychiatric: A&O x's 3, appropriate affect Results CBC & Chem 7: 03/14/20 20:26 03/14/20 20:26 Labs: Abnormal Lab Results - Last 24 Hours (Table) 03/14/20 03/14/20 03/14/20 Range/Units 16:23 16:23 18:39 WBC (3.8-10.6) k/uL RBC 3.40 L (4.30-5.90) m/uL Hgb 8.8 L (13.0-17.5) gm/dL Hct 31.1 L (39.0-53.0) % MCHC 28.3 L (31.0-37.0) g/dL RDW 16.6 H (11.5-15.5) % Neutrophils # 8.0 H (1.3-7.7) k/uL Potassium 6.8 H* (3.5-5.1) mmol/L Chloride 114 H (98-107) mmol/L Carbon Dioxide 11 L (22-30) mmol/L BUN 67 H (9-20) mg/dL Creatinine 8.20 H* (0.66-1.25) mg/dL Glucose 135 H (74-99) mg/dL POC Glucose (mg/dL) 107 H (75-99) mg/dL Phosphorus (2.5-4.5) mg/dL 03/14/20 03/14/20 Range/Units 20:26 20:26 WBC 12.1 H (3.8-10.6) k/uL RBC 3.13 L (4.30-5.90) m/uL Hgb 8.4 L (13.0-17.5) gm/dL Hct 28.2 L (39.0-53.0) % MCHC 29.7 L (31.0-37.0) g/dL RDW 16.6 H (11.5-15.5) % Neutrophils # 8.6 H (1.3-7.7) k/uL Potassium 5.5 H (3.5-5.1) mmol/L Chloride 115 H (98-107) mmol/L Carbon Dioxide 14 L (22-30) mmol/L BUN 66 H (9-20) mg/dL Creatinine 8.41 H* (0.66-1.25) mg/dL Glucose 107 H (74-99) mg/dL POC Glucose (mg/dL) (75-99) mg/dL Phosphorus 7.5 H (2.5-4.5) mg/dL Comments: PET report reviewed and d/w pt Chest x-ray: report reviewed US - abdomen: report reviewed Assessment and Plan (1) Acute renal failure Narrative/Plan: The patient had developed recurrent symptoms in the office assistive of fluid overload due to which she was sent in to the emergency room. Labs done in the ER found marked progression of his renal failure, compared to baseline. His rec ent PET scan had shown persistent bilateral hydronephrosis, greater on the left than the right. - Patient has been started on hemodialysis urgently by nephrology. - Continue management per nephrology. We will discuss with them regarding need for urology consult at this time. Previously, no surgical intervention was recommended as the patient's renal function was stable. Despite the presence of obstructive uropathy. Current Visit: Yes Status: Acute Code(s): N17.9 - ACUTE KIDNEY FAILURE, UNSPECIFIED SNOMED Code(s): 39880445 (2) Urothelial carcinoma of bladder Narrative/Plan: The patient has locally advanced bladder cancer, which is not amenable to surgery up front. He has not been able to start systemic chemotherapy because of need for treatment for intra-abdominal abscess. PET scan did not show any metastatic disease, with the patient has now developed new issues, leading to this admission. - Patient's treatment options for systemic chemotherapy are limited as ideally he would be treated with combination regimens consisting of a red devil drug. However, his renal insufficiency precludes the use of the same. Another option would be to use 5-FU alone, but its efficacy in his situation would be somewhat undetermined. - Ironically, if the patient does end up on chronic dialysis, we can actually give him a red devil containing regimen. We'll discuss with nephrology. Current Visit: No Status: Acute Priority: High Code(s): C67.9 - MALIGNANT NEOPLASM OF BLADDER, UNSPECIFIED SNOMED Code(s): 229567948 (3) Anemia aplastic aregenerative Narrative/Plan: due to acute on chronic kidney disease. Treat supportively with transfusion to keep hemoglobin greater than 7 Current Visit: Yes Status: Acute Code(s): D61.9 - APLASTIC ANEMIA, UNSPECIFIED SNOMED Code(s): 05674101
--- NOTE | 2020-03-15 15:11 | P.GSCN ---
History of Present Illness Consult date: 03/15/20 History of present illness: This is an 79-year-old gentleman known to our office for muscle invasive bladder cancer. The patient's problem began with hematuria while back. He declined any treatment. He eventually came to the hospital and underwent cystoscopy evacuati on of clot and biopsies. The biopsy showed urothelial carcinoma. I then did a formal transurethral resection of the area that looked like carcinoma in situ, severe edema and it came back muscle invasive bladder cancer. The bladder is so edematous ureteral orifices could not be seen. The patient was referred to [facility] for cystectomy. He is known to have hydronephrosis at this point in time but we elected not to treat it thinking that he would undergo cystectomy relatively quickly. He was evaluated for a colo vesicle fistula but none was identified. He had an exploration at [facility] identifying severe lysis of adhesions but unfortunately metastatic disease to the sigmoid colon. He had lymphadenectomy that was negative. The cystectomy was aborted he was set up for more therapy. He had a pelvic fluid collection that was drained in the interim. He now came to the hospital with acute renal failure. His creatinine is 8. He had an ultrasound identifying bilateral hydronephrosis. The patient has been urinating albeit small amounts. A dialysis catheter is placed today. The patient is to undergo chemotherapy by Dr. Correa but is not medically or physically able to at this point in time. Review of Systems - Constitutional Reports anorexia, Reports chronic headaches, Reports malaise, Reports weakness - Gastrointestinal Reports abdominal pain Past Medical History Past Medical History: Cancer, Chest Pain / Angina, Diabetes Mellitus, Hy pertension Additional Past Medical History / Comment(s): shortness of breath, bowel and bladder ca History of Any Multi-Drug Resistant Organisms: None Reported Past Surgical History: Back Surgery Additional Past Surgical History / Comment(s): hand surgery. back surgery with 4 screws and 2 rods currently had surgery for cancer on bladder on on the outside of his colon, has drain to LLQ abdomen Past Anesthesia/Blood Transfusion Reactions: No Reported Reaction Additional Past Anesthesia/Blood Transfusion Reaction / Comm: son allergic to one type of anesthesia Past Psychological History: No Psychological Hx Reported Smoking Status: Former smoker Past Alcohol Use History: None Reported Past Drug Use History: None Reported - Past Family History Mother Family Medical History: Unable to Obtain Additional Family Medical History / Comment(s): adopted Medications and Allergies Home Medications Medication Instructions Recorded Confirmed Type RX: Ascorbic Acid [Vitamin C] 500 mg PO DAILY@0900 03/31/18 03/14/20 History RX: Cholecalciferol [Vitamin D3 1,000 unit PO DAILY@00 03/31/18 03/14/20 History (25 Mcg = 1000 Iu)] RX: Cyanocobalamin [Vitamin B-12] 500 mcg PO DAILY@89903/31/18 03/14/20 History RX: Losartan Potassium 50 mg PO DAILY@89903/31/18 03/14/20 History RX: Insulin Aspart [NovoLOG] See Protocol SQ AC-TID 08/01/18 03/14/20 History RX: Levothyroxine Sodium 50 mcg PO DAILY@0610/10/19 03/14/20 History [Synthroid] RX: Pantoprazole [Protonix] 40 mg PO AC-BID #60 tablet. 02/03/20 03/14/20 Rx Allergies Allergy/AdvReac Type Severity Reaction Status Date / Time ciprofloxacin [From Cipro] Allergy Swelling Verified 03/14/20 18:58 propoxyphene [From Darvon] Allergy Hallucinati Verified 03/14/20 18:58 ons Iodinated Contrast Media AdvReac Dyspnea Verified 03/14/20 18:58 [Iodinated Contrast- Oral and IV Dye] Surgical - Exam Vital Signs Temp Pulse Resp BP Pulse Ox 98.0 F 117 H 22 129/60 98 03/14/20 15:47 03/14/20 15:47 03/14/20 15:47 03/14/20 15:47 03/14/20 15:47 - General well developed, well nourished, moderate distress - Eyes PERRL - ENT no hearing loss - Neck trachea midline - Respiratory normal expansion, normal respiratory effort - Cardiovascular Rhythm: regular - Abdomen Abdomen: soft, non tender, distended - Genitourinary normal penis with no external lesions, testicles present - Integumentary no rash, no growths - Neurologic normal coordination, normal sensation - Musculoskeletal normal posture - Psychiatric oriented to time, oriented to person, oriented to place, speech is normal, memor y intact Results - Labs 03/14/20 20:26 03/14/20 20:26 Abnormal Lab Results - Last 24 Hours (Table) 03/14/20 03/14/20 03/14/20 Range/Units 16:23 16:23 18:39 WBC (3.8-10.6) k/uL RBC 3.40 L (4.30-5.90) m/uL Hgb 8.8 L (13.0-17.5) gm/dL Hct 31.1 L (39.0-53.0) % MCHC 28.3 L (31.0-37.0) g/dL RDW 16.6 H (11.5-15.5) % Neutrophils # 8.0 H (1.3-7.7) k/uL Potassium 6.8 H* (3.5-5.1) mmol/L Chloride 114 H (98-107) mmol/L Carbon Dioxide 11 L (22-30) mmol/L BUN 67 H (9-20) mg/dL Creatinine 8.20 H* (0.66-1.25) mg/dL Glucose 135 H (74-99) mg/dL POC Glucose (mg/dL) 107 H (75-99) mg/dL Phosphorus (2.5-4.5) mg/dL 03/14/20 03/14/20 03/15/20 Range/Units 20:26 20:26 06:11 WBC 12.1 H (3.8-10.6) k/uL RBC 3.13 L (4.30-5.90) m/uL Hgb 8.4 L (13.0-17.5) gm/dL Hct 28.2 L (39.0-53.0) % MCHC 29.7 L (31.0-37.0) g/dL RDW 16.6 H (11.5-15.5) % Neutrophils # 8.6 H (1.3-7.7) k/uL Potassium 5.5 H (3.5-5.1) mmol/L Chloride 115 H (98-107) mmol/L Carbon Dioxide 14 L (22-30) mmol/L BUN 66 H (9-20) mg/dL Creatinine 8.41 H* (0.66-1.25) mg/dL Glucose 107 H (74-99) mg/dL POC Glucose (mg/dL) 163 H (75-99) mg/dL Phosphorus 7.5 H (2.5-4.5) mg/dL 03/15/20 Range/Units 12:16 WBC (3.8-10.6) k/uL RBC (4.30-5.90) m/uL Hgb (13.0-17.5) gm/dL Hct (39.0-53.0) % MCHC (31.0-37.0) g/dL RDW (11.5-15.5) % Neutrophils # (1.3-7.7) k/uL Potassium (3.5-5.1) mmol/L Chloride (98-107) mmol/L Carbon Dioxide (22-30) mmol/L BUN (9-20) mg/dL Creatinine (0.66-1.25) mg/dL Glucose (74-99) mg/dL POC Glucose (mg/dL) 110 H (75-99) mg/dL Phosphorus (2.5-4.5) mg/dL Diabetes panel 03/14/20 03/14/20 Range/Units 16:23 20:26 Sodium 140 142 (137-145) mmol/L Potassium 6.8 H* 5.5 H (3.5-5.1) mmol/L Chloride 114 H 115 H (98-107) mmol/L Carbon Dioxide 11 L 14 L (22-30) mmol/L BUN 67 H 66 H (9-20) mg/dL Creatinine 8.20 H* 8.41 H* (0.66-1.25) mg/dL Glucose 135 H 107 H (74-99) mg/dL Calcium 9.6 9.6 (8.4-10.2) mg/dL AST 23 18 (17-59) U/L ALT 14 13 (4-49) U/L Alkaline Phosphatase 87 84 (38-126) U/L Total Protein 7.2 6.6 (6.3-8.2) g/dL Albumin 3.9 3.5 (3.5-5.0) g/dL Calcium panel 03/14/20 03/14/20 Range/Units 16:23 20:26 Calcium 9.6 9.6 (8.4-10.2) mg/dL Phosphorus 7.5 H (2.5-4.5) mg/dL Albumin 3.9 3.5 (3.5-5.0) g/dL Pituitary panel 03/14/20 03/14/20 Range/Units 16:23 20:26 Sodium 140 142 (137-145) mmol/L Potassium 6.8 H* 5.5 H (3.5-5.1) mmol/L Chloride 114 H 115 H (98-107) mmol/L Carbon Dioxide 11 L 14 L (22-30) mmol/L BUN 67 H 66 H (9-20) mg/dL Creatinine 8.20 H* 8.41 H* (0.66-1.25) mg/dL Glucose 135 H 107 H (74-99) mg/dL Calcium 9.6 9.6 (8.4-10.2) mg/dL Adrenal panel 03/14/20 03/14/20 Range/Units 16:23 20:26 Sodium 140 142 (137-145) mmol/L Potassium 6.8 H* 5.5 H (3.5-5.1) mmol/L Chloride 114 H 115 H (98-107) mmol/L Carbon Dioxide 11 L 14 L (22-30) mmol/L BUN 67 H 66 H (9-20) mg/dL Creatinine 8.20 H* 8.41 H* (0.66-1.25) mg/dL Glucose 135 H 107 H (74-99) mg/dL Calcium 9.6 9.6 (8.4-10.2) mg/dL Total Bilirubin 0.5 0.3 (0.2-1.3) mg/dL AST 23 18 (17-59) U/L ALT 14 13 (4-49) U/L Alkaline Phosphatase 87 84 (38-126) U/L Total Protein 7.2 6.6 (6.3-8.2) g/dL Albumin 3.9 3.5 (3.5-5.0) g/dL - Imaging US - kidney/bladder: report reviewed, image reviewed Assessment and Plan Assessment: Impression: Muscle invasive and metastatic bladder cancer. Bilateral hydronephrosis with acute renal failure. Multiple medical illnesses. Recommendations: The patient's situation is extremely difficult. The acute and chronic renal failure is due to the obstruction of the ureters from the invasive bladder cancer. Ideally the patient needs nephrostomy tubes and then can be set up for chemotherapy. Patient is reluctant to undergo chemotherapy because he feels so formal. The patient is also reluctant to undergo nephrostomy tubes. I can make arrangements to have nephrostomy tubes place early next week under anesthesia. That would then allow him to undergo chemotherapy to try to control his disease although cure rates are unlikely given the status of his disease. We will see the opinion of oncology before making the final steps. The alternative would be hospice with no oncologic care
[2020-03-15] MEDS: ACETAMINOPHEN TAB 325 MG TAB PO PRN ×2 (16:37→23:10)
[2020-03-15 16:58] LABS: Glucose,Whole Blood 100 mg/dL (75-99)
[2020-03-15 17:49] LABS: Hemoglobin A1C 6.8 % (4.0-6.0)
[2020-03-15 18:06] LABS: % Iron Saturation 4.96 (15.00-50.00)
[2020-03-15 19:09] LABS: Calcium 8.3 mg/dL (8.4-10.2); Potassium 4.7 mmol/L (3.5-5.1)
--- NOTE | 2020-03-15 19:29 | P.HPIM ---
History of Present Illness H&P Date: 03/15/20 Chief Complaint: Abnormal labs History of presenting complaint: This is a 79-year-old patient of Dr. Pola Rodriguez. Chronic stable medical conditions include diabetes,, coronary artery disease with stent, hypertension, kidney stones , bowel and bladder cancer. On December 07 patient had a cystoscopy that showed severe hemorrhagic cystitis. He's had prior back surgery and is al so had surgery for his cancer and bladder. Also recently treated for a diverticular abscess and had a drain placed. Treated with IV antibiotics with resolution of the abscess. Also recent admission to the hospital with GI bleed showed duodenal bulb ulcer and gastritis. Patient presented to his oncologist. Has been getting more short of breath. Decreased appetite, chills. Decreased urine output. Some lower extremity swelling. Worsening of his creatinine. Dr. Hernandez from vascular surgery at placed a dialysis catheter yesterday evening. Does feel tired rundown. Slight cough. Review of systems: GEN.: Tired, decreased appetite, chills EYES: None HEENT: None NECK: None RESPIRATORY: Shortness of breath CARDIOVASCULAR: None GASTROINTESTINAL: None GENITOURINARY: Decreased urine output MUSCULOSKELETAL: Joint pains LYMPHATICS: None HEMATOLOGICAL: None PSYCHIATRY: None NEUROLOGICAL: None Past medical history to include: Diabetes, hypertension, bowel and bladder cancer, kidney stones coronary artery with stent hypothyroid, chronic kidney disease stage III, hypertensive kidney di sease Social history: Lives alone. No alcohol. Smoked for over 30 years stopped in 1990. Family history: Patient is adopted Physical examination: VITAL SIGNS: 98, 117, 22, 129/60, 98% room air upon presentation GENERAL: BMI 24.3, laying in bed, anxious EYES: Pupils equal. Conjunctiva pale. HEENT: External appearance of nose and ears normal, oral cavity grossly normal. NECK: JVD unable to assess; masses not palpable. HEART: First and second heart sounds are normal; no edema. LUNGS: Respiratory rate increased; decreased breath sounds. ABDOMEN: Soft, nontender, liver spleen not palpable, no masses palpable. PSYCH: Alert and oriented x3; mood and affect anxious. 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 LYMPHATICS: No lymph nodes palpable in the axilla and neck INVESTIGATIONS, reviewed in the clinical context: White count 10.3 hemoglobin 8.8 platelets 3D4 potassium 6.8 bicarb 11 bun 67 creatinine 8.20 EKG tracing personally reviewed by me-atrial fibrillation with the right bundle branch block pattern Chest x-ray film personally reviewed by me-right pleural effusion, pulmonary edema Previous testing: Creatinine 1.39 on 02/01/2020 Assessment: -Acute kidney injury-severe, likely obstructive uropathy with a history of bladder cancer -Acute hyperkalemia from severe renal failure -Metabolic acidosis from renal failure -Chronic duodenal ulcer -Chronic gastritis, -Bilateral nephrolithiasis -Coronary artery disease with stent -Diabetes mellitus type 2, -Essential hypertension -Hypothyroid -Chronic kidney disease stage III from kidney stones, and diabetic nephropathy -Hypertensive kidney disease -Chronic bilateral hydronephrosis -Normocytic anemia multifactorial Plan: Hematology was consulted. Ultrasound of the bladder kidney was ordered. Nephrology was consulted. Patient had a hemodialysis catheter plate. For hemodialysis today. Renal offensive medications be held. Care was discussed with the patient question answered Past Medical History Past Medical History: Cancer, Chest Pain / Angina, Diabetes Mellitus, Hypertension Additional Past Medical History / Comment(s): shortness of breath, bowel and bladder ca History of Any Multi-Drug Resistant Organisms: None Reported Past Surgical History: Back Surgery Additional Past Surgical History / Comment(s): hand surgery. back surgery with 4 screws and 2 rods currently had surgery for cancer on bladder on on the outside of his colon, has drain to LLQ abdomen Past Anesthesia/Blood Transfusion Reactions: No Reported Reaction Additional Past Anesthesia/Blood Transfusion Reaction / Comment(s): son allergic to one type of anesthesia Past Psychological History: No Psychological Hx Reported Smoking Status: Former smoker Past Alcohol Use History: None Reported Past Drug Use History: None Reported - Past Family History Mother Family Medical History: Unable to Obtain Additional Family Medical History / Comment(s): adopted Medications and Allergies Home Medications Medication Instructions Recorded Confirmed Type Ascorbic Acid [Vitamin C] 500 mg PO DAILY@89903/31/18 03/14/20 History Cholecalciferol [Vitamin D3 (25 1,000 unit PO DAILY@89903/31/18 03/14/20 History Mcg = 1000 Iu)] Cyanocobalamin [Vitamin B-12] 500 mcg PO DAILY@89903/31/18 03/14/20 History Losartan Potassium 50 mg PO DAILY@89903/31/18 03/14/20 History Insulin Aspart [NovoLOG] See Protocol SQ AC-TID 08/01/18 03/14/20 History Levothyroxine Sodium [Synthroid] 50 mcg PO DAILY@0600 10/10/19 03/14/20 History Pantoprazole [Protonix] 40 mg PO AC-BID #60 tablet. 02/03/20 03/14/20 Rx Allergies Allergy/AdvReac Type Severity Reaction Status Date / Time ciprofloxacin [From Cipro] Allergy Swelling Verified 03/14/20 18:58 propoxyphene [From Darvon] Allergy Hallucinati Verified 03/14/20 18:58 ons Iodinated Contrast Media AdvReac Dyspnea Verified 03/14/20 18:58 [Iodinated Contrast- Oral and IV Dye] Physical Exam Vitals: Vital Signs Temp Pulse Pulse Resp BP BP Pulse Ox 03/15/20 08:00 97.8 F 111 H 20 130/69 100 03/15/20 04:00 90 16 03/15/20 03:57 90 16 134/63 100 03/15/20 00:00 98.9 F 94 20 163/75 99 03/14/20 21:22 97.6 F 95 18 136/61 96 03/14/20 21:15 97.6 F 95 18 136/61 96 03/14/20 20:44 98.9 F 108 H 18 141/70 97 03/14/20 18:33 92 18 148/76 99 03/14/20 18:01 93 18 149/72 100 03/14/20 15:47 98.0 F 117 H 22 129/60 98 Intake and Output 03/14/20 03/15/20 03/15/20 22:59 06:59 14:59 Other: Voiding Method Toilet Toilet # Bowel Movements 1 Weight 72.575 kg 70.4 kg Results CBC & Chem 7: 03/14/20 20:26 03/15/20 18:20 Labs: Abnormal Lab Results - Last 24 Hours (Table) 03/14/20 03/14/20 03/14/20 Range/Units 16:23 16:23 18:39 WBC (3.8-10.6) k/uL RBC 3.40 L (4.30-5.90) m/uL Hgb 8.8 L (13.0-17.5) gm/dL Hct 31.1 L (39.0-53.0) % MCHC 28.3 L (31.0-37.0) g/dL RDW 16.6 H (11.5-15.5) % Neutrophils # 8.0 H (1.3-7.7) k/uL Potassium 6.8 H* (3.5-5.1) mmol/L Chloride 114 H (98-107) mmol/L Carbon Dioxide 11 L (22-30) mmol/L BUN 67 H (9-20) mg/dL Creatinine 8.20 H* (0.66-1.25) mg/dL Glucose 135 H (74-99) mg/dL POC Glucose (mg/dL) 107 H (75-99) mg/dL Phosphorus (2.5-4.5) mg/dL 03/14/20 03/14/20 03/15/20 Range/Units 20:26 20:26 06:11 WBC 12.1 H (3.8-10.6) k/uL RBC 3.13 L (4.30-5.90) m/uL Hgb 8.4 L (13.0-17.5) gm/dL Hct 28.2 L (39.0-53.0) % MCHC 29.7 L (31.0-37.0) g/dL RDW 16.6 H (11.5-15.5) % Neutrophils # 8.6 H (1.3-7.7) k/uL Potassium 5.5 H (3.5-5.1) mmol/L Chloride 115 H (98-107) mmol/L Carbon Dioxide 14 L (22-30) mmol/L BUN 66 H (9-20) mg/dL Creatinine 8.41 H* (0.66-1.25) mg/dL Glucose 107 H (74-99) mg/dL POC Glucose (mg/dL) 163 H (75-99) mg/dL Phosphorus 7.5 H (2.5-4.5) mg/dL Thrombosis Risk Factor Assmnt - Choose All That Apply Each Factor Represents 1 point: Swollen legs (current) Other Risk Factors: Yes Each Risk Factor Represents 2 Points: Laparoscopic surgery, Malignancy Each Risk Factor Represents 3 Points: Age 75 years or older Other congenital or acquired thrombophilia - If yes, enter type in comment: No Thrombosis Risk Factor Assessment Total Risk Factor Score: 8 Thrombosis Risk Factor Assessment Level: High Risk
[2020-03-15 19:45] LABS: Glucose,Whole Blood 157 mg/dL (75-99)
[2020-03-15 21:28] LABS: Hepatitis B Core IgM Non-Reactive (Non-Reactive); Hepatitis B Surface AB- Quant 3.5 mIU/mL; Hepatitis B Surface Antibody Non-Reactive (Non-Reactive); Hepatitis B Surface Antigen Non-Reactive (Non-Reactive)
[2020-03-16 06:10] LABS: Glucose,Whole Blood 100 mg/dL (75-99)
[2020-03-16 06:30] LABS: Calcium 8.7 mg/dL (8.4-10.2); Potassium 4.9 mmol/L (3.5-5.1)
[2020-03-16] MEDS: PANTOPRAZOLE 40 MG TABLET PO SCH ×2 (06:50→17:27)
[2020-03-16] MEDS: LEVOTHYROXINE 50 MCG TAB PO SCH (06:50)
[2020-03-16] MEDS: INSULIN ASPART (NovoLOG) 100 UNIT/ML VIAL SQ SCH ×4 (06:50→20:35)
--- NOTE | 2020-03-16 09:00 | P.PN ---
Subjective Progress Note Date: 03/16/20 The patient is in the hospital with renal failure. This is primarily due to obstruction of the ureters due to his invasive bladder cancer. He was at [facility] for a possible cystectomy but was found to be metastatic to the serosa of the colon. Surgery was aborted. The cancer was ground to obstruct the ureters. He has bilateral hydronephrosis on ultrasound. I discussed with the patient about nephrostomy tubes yesterday. He has decided to proceed with that. I'll make arrangements for that early in the week. Objective - Vital Signs Vital signs: Vital Signs Temp 98.4 F 03/15/20 20:00 Pulse 83 03/16/20 04:00 Resp 22 03/16/20 04:00 BP 126/65 03/16/20 04:00 Pulse Ox 99 03/16/20 04:00 Intake & Output 03/15/20 03/16/20 03/16/20 18:59 06:59 18:59 Intake Total 713 Output Total 800 Balance -87 Weight 70.4 kg 70.7 kg Intake: Intake, IV Titration 280 Amount Dextrose 5% in Water 1, 280 000 ml @ 70 mls/hr IV . [id number] KAT with Sodium Bicarb (1 Meq/ml) 150 ml Rx#:[id number] Oral 433 Output: Hemodialysis 800 Other: Voiding Method Toilet # Voids 1 # Bowel Movements 1 - Labs CBC & Chem 7: 03/14/20 20:26 03/16/20 06:02 Labs: Abnormal Lab Results - Last 24 Hours (Table) 03/14/20 03/14/20 03/15/20 Range/Units 20:26 20:26 12:16 Chloride (98-107) mmol/L Carbon Dioxide (22-30) mmol/L BUN (9-20) mg/dL Creatinine (0.66-1.25) mg/dL Glucose (74-99) mg/dL POC Glucose (mg/dL) 110 H (75-99) mg/dL Hemoglobin A1c 6.8 H (4.0-6.0) % Calcium (8.4-10.2) mg/dL Iron 13 L (65-175) ug/dL % Saturation 4.96 L (15.00-50.00) 03/15/20 03/15/20 03/15/20 Range/Units 16:44 18:20 19:41 Chloride 109 H (98-107) mmol/L Carbon Dioxide 18 L (22-30) mmol/L BUN 45 H (9-20) mg/dL Creatinine 6.13 H (0.66-1.25) mg/dL Glucose 143 H (74-99) mg/dL POC Glucose (mg/dL) 100 H 157 H (75-99) mg/dL Hemoglobin A1c (4.0-6.0) % Calcium 8.3 L (8.4-10.2) mg/dL Iron (65-175) ug/dL % Saturation (15.00-50.00) 03/16/20 03/16/20 Range/Units 06:02 06:06 Chloride 109 H (98-107) mmol/L Carbon Dioxide 20 L (22-30) mmol/L BUN 47 H (9-20) mg/dL Creatinine 6.96 H (0.66-1.25) mg/dL Glucose 102 H (74-99) mg/dL POC Glucose (mg/dL) 100 H (75-99) mg/dL Hemoglobin A1c (4.0-6.0) % Calcium (8.4-10.2) mg/dL Iron (65-175) ug/dL % Saturation (15.00-50.00)
--- NOTE | 2020-03-16 09:26 | P.PN ---
Subjective Progress Note Date: 03/16/20 Principal diagnosis: This is an 79-year-old male seen in consultation with acute kidney injury secondary to bilateral hydronephrosis from an invasive bladder cancer. He was dialyzed yesterday with the femoral catheter in the right groin Postdialysis felt very weak. Currently he feels weak and tired short of breath. He has poor appetite. No nausea vomiting diarrhea fever chills Urine output is not documented. Social known with diabetes mellitus, coronary artery disease and stent in the past Objective - Vital Signs Vital signs: Vital Signs Temp 98.4 F 03/15/20 20:00 Pulse 83 03/16/20 04:00 Resp 22 03/16/20 04:00 BP 126/65 03/16/20 04:00 Pulse Ox 99 03/16/20 04:00 Intake & Output 03/15/20 03/16/20 03/16/20 18:59 06:59 18:59 Intake Total 713 Output Total 800 Balance -87 Weight 70.4 kg 70.7 kg Intake: Intake, IV Titration 280 Amount Dextrose 5% in Water 1, 280 000 ml @ 70 mls/hr IV . [id number] KAT with Sodium Bicarb (1 Meq/ml) 150 ml Rx#:[id number] Oral 433 Output: Hemodialysis 800 Other: Voiding Method Toilet # Voids 1 # Bowel Movements 1 On exam he is awake alert oriented but weak and tired and short of breath HEENT exam no JVP neck is supple no facial asymmetry Lungs are clear to auscultation but poor air entry he couldn't sit up. Heart sounds are unremarkable for any murmur rub gallop Abdomen soft nontender nondistended Extremity exam was moderate edema Neurologically awake alert oriented but profoundly - Labs CBC & Chem 7: 03/14/20 20:26 03/16/20 06:02 Labs: Abnormal Lab Results - Last 24 Hours (Table) 03/14/20 03/14/20 03/15/20 Range/Units 20:26 20:26 12:16 Chloride (98-107) mmol/L Carbon Dioxide (22-30) mmol/L BUN (9-20) mg/dL Creatinine (0.66-1.25) mg/dL Glucose (74-99) mg/dL POC Glucose (mg/dL) 110 H (75-99) mg/dL Hemoglobin A1c 6.8 H (4.0-6.0) % Calcium (8.4-10.2) mg/dL Iron 13 L (65-175) ug/dL % Saturation 4.96 L (15.00-50.00) 03/15/20 03/15/20 03/15/20 Range/Units 16:44 18:20 19:41 Chloride 109 H (98-107) mmol/L Carbon Dioxide 18 L (22-30) mmol/L BUN 45 H (9-20) mg/dL Creatinine 6.13 H (0.66-1.25) mg/dL Glucose 143 H (74-99) mg/dL POC Glucose (mg/dL) 100 H 157 H (75-99) mg/dL Hemoglobin A1c (4.0-6.0) % Calcium 8.3 L (8.4-10.2) mg/dL Iron (65-175) ug/dL % Saturation (15.00-50.00) 03/16/20 03/16/20 Range/Units 06:02 06:06 Chloride 109 H (98-107) mmol/L Carbon Dioxide 20 L (22-30) mmol/L BUN 47 H (9-20) mg/dL Creatinine 6.96 H (0.66-1.25) mg/dL Glucose 102 H (74-99) mg/dL POC Glucose (mg/dL) 100 H (75-99) mg/dL Hemoglobin A1c (4.0-6.0) % Calcium (8.4-10.2) mg/dL Iron (65-175) ug/dL % Saturation (15.00-50.00) Assessment and Plan Assessment: Impression 1. Acute kidney injury secondary bilateral hydronephrosis from invasive bladder cancer 2. Mild fluid overload with edema and short of breath 3 mild degree of non-gap acidosis bicarb is 20 gap is 9 4. Anemia hemoglobin is 8.4 from chronic illness, iron saturation is 4% additionally iron deficient Recommendation 1. Continue his dialysis today. 2. If possible obtain interventional radiologists have to put the percutaneous nephrostomy today rather than on Wednesday
[2020-03-16 09:33] LABS: Hepatitis A Antibody IgM Non-Reactive (Non-Reactive); Hepatitis B Core IgM Non-Reactive (Non-Reactive); Hepatitis B Surface AB- Quant 3.5 mIU/mL; Hepatitis B Surface Antibody Non-Reactive (Non-Reactive); Hepatitis B Surface Antigen Non-Reactive (Non-Reactive); Hepatitis C IgG Antibody Non-Reactive (Non-Reactive)
[2020-03-16] MEDS: ASCORBIC ACID 500 MG TAB PO SCH (09:46)
[2020-03-16] MEDS: CYANOCOBALAMIN 500 MCG TAB PO SCH (09:46)
[2020-03-16] MEDS: CHOLECALCIFEROL 1,000 UNIT TAB PO SCH (09:46)
[2020-03-16] MEDS: ACETAMINOPHEN TAB 325 MG TAB PO PRN ×2 (09:46→17:30)
[2020-03-16 12:09] LABS: Glucose,Whole Blood 163 mg/dL (75-99)
[2020-03-16 17:24] LABS: Glucose,Whole Blood 117 mg/dL (75-99)
[2020-03-16 20:04] LABS: Glucose,Whole Blood 159 mg/dL (75-99)
--- NOTE | 2020-03-16 21:52 | P.PN ---
Progress Note - Text Progress Note Date: 03/16/20 Chief Complaint: Abnormal labs History of presenting complaint: This is a 79-year-old patient of Dr. Pola Rodriguez. Chronic stable medical conditions include diabetes,, coronary artery disease with stent, hypertension, kidney stones , bowel and bladder cancer. On December 07 patient had a cystoscopy that showed severe hemorrhagic cystitis. He's had prior back surgery . Patient was referred to [facility] where he was found to have significant bladder cancer with local metastasis. Surgery was not done. Patient has resultant hydronephrosis. Also recently treated for a diverticular abscess and had a drain placed. Treated with IV antibiotics with resolution of the abscess. Also recent admission to the hospital with GI bleed showed duodenal bulb ulcer and gastritis. Patient presented to his oncologist. Has been getting more short of breath. Decreased appetite, chills. Decreased urine output. Some lower extremity swelling. Worsening of his creatinine. Dr. Hernandez from vascular surgery at placed a dialysis catheter yesterday evening. Does feel tired rundown. Slight cough. Admitted with acute obstructive uropathy renal failure. Dialysis catheter placed. Hemodialysis started. Today-laying in bed. Tired. Family visiting. Did eat some. Review of systems: Was done for constitutional, cardiovascular, GI, pulmonary. relevant finding as above Active Medications Acetaminophen (Acetaminophen Tab 325 Mg Tab) 650 mg PO Q6HR PRN PRN Reason: Fever and/ or Pain Last Admin: 03/16/20 17:30 Dose: 650 mg Documented by: Ascorbic Acid (Ascorbic Acid 500 Mg Tab) 500 mg PO DAILY@0900 [facility] Last Admin: 03/16/20 09:46 Dose: 500 mg Documented by: Cholecalciferol (Cholecalciferol 1,000 Unit Tab) 1,000 unit PO DAILY@0900 [facility] Last Admin: 03/16/20 09:46 Dose: 1,000 unit Documented by: Cyanocobalamin (Cyanocobalamin 500 Mcg Tab) 500 mcg PO DAILY@0900 [facility] Last Admin: 03/16/20 09:46 Dose: 500 mcg Documented by: Insulin Aspart (Insulin Aspart (Novolog) 100 Unit/Ml Vial) 0 unit SQ [facility]; Protocol Last Admin: 03/16/20 20:35 Dose: Not Given Documented by: Levothyroxine Sodium (Levothyroxine 50 Mcg Tab) 50 mcg PO DAILY@0630 [facility] Last Admin: 03/16/20 06:50 Dose: 50 mcg Documented by: Naloxone HCl (Naloxone 0.4 Mg/Ml 1 Ml Vial) 0.2 mg IV Q2M PRN PRN Reason: Opioid Reversal Ondansetron HCl (Ondansetron 4 Mg/2 Ml Vial) 4 mg IVP Q6HR PRN PRN Reason: Nausea And Vomiting Pantoprazole Sodium (Pantoprazole 40 Mg Tablet) 40 mg PO AC-BID [facility] Last Admin: 03/16/20 17:27 Dose: 40 mg Documented by: Physical examination: VITAL SIGNS: 97.9, 72, 18, 125/70, 98% room air GENERAL: Laying in bed, not in distress EYES: Pupils equal. Conjunctiva pale. NECK: JVD unable to assess; masses not palpable. HEART: First and second heart sounds are normal; no edema. LUNGS: Respiratory rate increased; decreased breath sounds. ABDOMEN: Soft, nontender, liver spleen not palpable, no masses palpable. PSYCH: Alert and oriented x3; mood and affect anxious. 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 Started on renal replacement therapy. Patient will need bilateral nephrostomy tube.- Slow to respond -Acute hyperkalemia from severe renal failure-corrected -Metabolic acidosis from renal failure-improving -Chronic duodenal ulcer -Chronic gastritis, -Bilateral nephrolithiasis -Coronary artery disease with stent -Diabetes mellitus type 2, -Essential hypertension -Hypothyroid -Chronic kidney disease stage III from kidney stones, and diabetic nephropathy -Hypertensive kidney disease -Chronic bilateral hydronephrosis -Normocytic anemia multifactorial Plan: Continue current medication treatment plan. Plan for bilateral nephrostomy tubes on Wednesday. Prognosis guarded. Continue hemodialysis.
[2020-03-17] MEDS: ACETAMINOPHEN TAB 325 MG TAB PO PRN ×4 (01:42→20:46)
[2020-03-17 06:35] LABS: Glucose,Whole Blood 117 mg/dL (75-99)
[2020-03-17] MEDS: LEVOTHYROXINE 50 MCG TAB PO SCH (06:50)
[2020-03-17] MEDS: PANTOPRAZOLE 40 MG TABLET PO SCH ×2 (06:50→16:59)
[2020-03-17] MEDS: INSULIN ASPART (NovoLOG) 100 UNIT/ML VIAL SQ SCH ×4 (06:50→16:48)
[2020-03-17] MEDS: CYANOCOBALAMIN 500 MCG TAB PO SCH (09:10)
[2020-03-17] MEDS: ASCORBIC ACID 500 MG TAB PO SCH (09:10)
[2020-03-17] MEDS: CHOLECALCIFEROL 1,000 UNIT TAB PO SCH (09:10)
--- NOTE | 2020-03-17 09:43 | P.PN ---
Subjective Progress Note Date: 03/17/20 The patient has bilateral hydronephrosis due to invasive bladder cancer obstructing and obscuring both ureteral orifices. He consents and will be set up for bilateral nephrostomy tubes tomorrow. Objective - Vital Signs Vital signs: Vital Signs Temp 97.9 F 03/17/20 09:18 Pulse 95 03/17/20 09:18 Resp 18 03/17/20 09:18 BP 125/70 03/17/20 09:18 Pulse Ox 98 03/17/20 09:18 Intake & Output 03/16/20 03/17/20 03/17/20 18:59 06:59 18:59 Intake Total 562 Output Total 300 Balance 262 Weight 70.4 kg Intake: Oral 562 Output: Urine 300 Hemodialysis 0 Other: Voiding Method Toilet Toilet Toilet # Voids 1 2 - Labs CBC & Chem 7: 03/14/20 20:26 03/16/20 06:02 Labs: Abnormal Lab Results - Last 24 Hours (Table) 03/16/20 03/16/20 03/16/20 Range/Units 12:08 17:18 20:02 POC Glucose (mg/dL) 163 H 117 H 159 H (75-99) mg/dL 03/17/20 Range/Units 06:33 POC Glucose (mg/dL) 117 H (75-99) mg/dL
--- NOTE | 2020-03-17 11:39 | P.PN ---
Subjective Progress Note Date: 03/17/20 Principal diagnosis: This is an 79-year-old male seen in consultation with acute kidney injury secondary to bilateral hydronephrosis from an invasive bladder cancer. He was dialyzed yesterday and the day before with the femoral catheter in the right groin Postdialysis today he is feeling much better less short of breath is able to eat better. Denies any abdominal pain. No nausea vomiting diarrhea fever chills Urine output is minimal He is known with diabetes mellitus, coronary artery disease and stent in the past Objective - Vital Signs Vital signs: Vital Signs Temp 97.9 F 03/17/20 09:18 Pulse 95 03/17/20 09:18 Resp 18 03/17/20 09:18 BP 125/70 03/17/20 09:18 Pulse Ox 98 03/17/20 09:18 Intake & Output 03/16/20 03/17/20 03/17/20 18:59 06:59 18:59 Intake Total 562 60 Output Total 300 Balance 262 60 Weight 70.4 kg Intake: Oral 562 60 Output: Urine 300 Hemodialysis 0 Other: Voiding Method Toilet Toilet Toilet # Voids 1 2 On examination is awake alert oriented seems very comfortable compared to yesterday HEENT exam no JVP neck is supple no facial asymmetry Lungs are clear to auscultation good air entry bilaterally Heart sounds are unremarkable for any murmur rub gallop Abdomen soft nondistended Extremity exam reveals trace edema Neurologically awake alert oriented no asterixis - Labs CBC & Chem 7: 03/14/20 20:26 03/16/20 06:02 Labs: Abnormal Lab Results - Last 24 Hours (Table) 03/16/20 03/16/20 03/16/20 Range/Units 12:08 17:18 20:02 POC Glucose (mg/dL) 163 H 117 H 159 H (75-99) mg/dL 03/17/20 Range/Units 06:33 POC Glucose (mg/dL) 117 H (75-99) mg/dL Assessment and Plan Assessment: Impression 1. Acute kidney injury secondary bilateral hydronephrosis from invasive bladder cancer, hemodialyzed with a femoral catheter on Wednesday and Wednesday yesterday with improvement subjectively 2. Mild fluid overload with edema and short of breath. Better 3. mild degree of non-gap acidosis bicarb is 20 gap is 9, as of yesterday 4. Anemia hemoglobin is 8.4 from chronic illness, iron saturation is 4% additionally iron deficient Recommendation 1. Is scheduled to undergo per kidney nephrostomy tomorrow. We can hold off dialysis and see how he does and assess the need for dialysis tomorrow and thereafter 2. We will give him 1 dose of Ferrlecit
[2020-03-17 12:00] LABS: Glucose,Whole Blood 135 mg/dL (75-99)
[2020-03-17] MEDS ORDERED: SODIUM FERRIC GLUCONAT-SUCROSE 125 MG in SODIUM CHLORIDE 0.9% 100 ML IVPB ONE (12:00)
--- NOTE | 2020-03-17 16:19 | P.PN ---
Progress Note - Text Progress Note Date: 03/17/20 Chief Complaint: Abnormal labs History of presenting complaint: This is a 79-year-old patient of Dr. Pola Rodriguez. Chronic stable medical conditions include diabetes,, coronary artery disease with stent, hypertension, kidney stones , bowel and bladder cancer. On December 07 patient had a cystoscopy that showed severe hemorrhagic cystitis. He's had prior back surgery . Patient was referred to [facility] where he was found to have significant bladder cancer with local metastasis. Surgery was not done. Patient has resultant hydronephrosis. Also recently treated for a diverticular abscess and had a drain placed. Treated with IV antibiotics with resolution of the abscess. Also recent admission to the hospital with GI bleed showed duodenal bulb ulcer and gastritis. Patient presented to his oncologist. Has been getting more short of breath. Decreased appetite, chills. Decreased urine output. Some lower extremity swelling. Worsening of his creatinine. Dr. Hernandez from vascular surgery at placed a dialysis catheter yesterday evening. Does feel tired rundown. Slight cough. Admitted with acute obstructive uropathy renal failure. Dialysis catheter placed. Hemodialysis started. Today-laying in bed. No pain. Tired. making urine. Review of systems: Was done for constitutional, cardiovascular, GI, pulmonary. relevant finding as above Active Medications Acetaminophen (Acetaminophen Tab 325 Mg Tab) 650 mg PO Q6HR PRN PRN Reason: Fever and/ or Pain Last Admin: 03/17/20 14:10 Dose: 650 mg Documented by: Ascorbic Acid (Ascorbic Acid 500 Mg Tab) 500 mg PO DAILY@0900 [facility] Last Admin: 03/17/20 09:10 Dose: 500 mg Documented by: Cholecalciferol (Cholecalciferol 1,000 Unit Tab) 1,000 unit PO DAILY@0900 [facility] Last Admin: 03/17/20 09:10 Dose: 1,000 unit Documented by: Cyanocobalamin (Cyanocobalamin 500 Mcg Tab) 500 mcg PO DAILY@0900 [facility] Last Admin: 03/17/20 09:10 Dose: 500 mcg Documented by: Insulin Aspart (Insulin Aspart (Novolog) 100 Unit/Ml Vial) 0 unit SQ [facility]; Protocol Last Admin: 03/17/20 11:58 Dose: Not Given Documented by: Levothyroxine Sodium (Levothyroxine 50 Mcg Tab) 50 mcg PO DAILY@0630 [facility] Last Admin: 03/17/20 06:50 Dose: 50 mcg Documented by: Naloxone HCl (Naloxone 0.4 Mg/Ml 1 Ml Vial) 0.2 mg IV Q2M PRN PRN Reason: Opioid Reversal Ondansetron HCl (Ondansetron 4 Mg/2 Ml Vial) 4 mg IVP Q6HR PRN PRN Reason: Nausea And Vomiting Pantoprazole Sodium (Pantoprazole 40 Mg Tablet) 40 mg PO AC-BID [facility] Last Admin: 03/17/20 06:50 Dose: 40 mg Documented by: Physical examination: VITAL SIGNS:97.7, 87, 18, 151/77, 97% room air GENERAL: Laying in bed, not in distress EYES: Pupils equal. Conjunctiva pale. NECK: JVD unable to assess; masses not palpable. HEART: First and second heart sounds are normal; no edema. LUNGS: Respiratory rate increased; decreased breath sounds. ABDOMEN: Soft, nontender, liver spleen not palpable, no masses palpable. PSYCH: Alert and oriented x3; mood and affect anxious. MUSCULAR skeletal: Evidence of osteoarthritis in the hands INVESTIGATIONS, reviewed in the clinical context: Potassium 4.9 bun 47 creatinine 6.96 Admission testing White count 10.3 hemoglobin 8.8 platelets 3D4 potassium 6.8 bicarb 11 bun 67 c reatinine 8.20 EKG tracing personally reviewed by me-atrial fibrillation with the right bundle branch block pattern Chest x-ray film personally reviewed by me-right pleural effusion, pulmonary edema Previous testing: Creatinine 1.39 on 02/01/2020 Assessment: -Acute kidney from obstructive uropathy with inoperable bladder cancer. Started on renal replacement therapy. 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 Scheduled for bilateral nephrostomy tubes tomorrow. Advanced care planning: Had a lengthy talk with patient about his CODE STATUS. Patient's ex- is his power of patent attorney. He does take all his decisions on his own. He has not had a chance to think up on that. His treatment options because of his renal failure recent abdominal abscess or other limited. Patient is explained about the ventilator and cardiac resuscitation. His well think about the same and get back to us. Questions were answered. 20 minutes was spent for this.
[2020-03-17 16:43] LABS: Glucose,Whole Blood 169 mg/dL (75-99)
[2020-03-17 20:28] LABS: Glucose,Whole Blood 188 mg/dL (75-99)
[2020-03-18 06:11] LABS: Glucose,Whole Blood 126 mg/dL (75-99)
[2020-03-18] MEDS: LEVOTHYROXINE 50 MCG TAB PO SCH (06:23)
[2020-03-18] MEDS: PANTOPRAZOLE 40 MG TABLET PO SCH ×2 (06:23→17:09)
[2020-03-18] MEDS: ACETAMINOPHEN TAB 325 MG TAB PO PRN (06:23)
[2020-03-18] MEDS: INSULIN ASPART (NovoLOG) 100 UNIT/ML VIAL SQ SCH ×4 (06:24→20:27)
[2020-03-18] MEDS ORDERED: diphenhydrAMINE 50 MG/ML 1 ML VIAL IVP STA (09:13)
[2020-03-18] MEDS ORDERED: FAMOTIDINE 20 MG/2 ML VIAL IV STA (09:13)
[2020-03-18] MEDS ORDERED: methylPREDNISolone SOD SUCCI 125 MG/2 ML VIAL IV STA (09:13)
[2020-03-18] MEDS: CHOLECALCIFEROL 1,000 UNIT TAB PO SCH (09:46)
[2020-03-18] MEDS: ASCORBIC ACID 500 MG TAB PO SCH (09:46)
[2020-03-18] MEDS: CYANOCOBALAMIN 500 MCG TAB PO SCH (09:47)
--- NOTE | 2020-03-18 10:59 | P.PN ---
Subjective Patient is seen in follow-up for acute kidney injury on chronic kidney disease. Last hemodialysis was on Wednesday. Scheduled for nephrostomy tube placement today. Oliguric. No vomiting or diarrhea. No chest pain or shortness of breath. Vital signs are stable. General: The patient appeared well nourished and normally developed. HEENT: Head exam is unremarkable. Neck is without jugular venous distension. LUNGS: Lungs are clear to auscultation and percussion. Breath sounds decreased. HEART: Rate and Rhythm are regular. ABDOMEN: Abdominal exam reveals normal bowel sounds. Non-tender and non- distended. EXTREMITITES: No clubbing, cyanosis, or edema. Objective - Vital Signs Vital signs: Vital Signs Temp 98.1 F 03/18/20 08:00 Pulse 94 03/18/20 08:00 Resp 16 03/18/20 08:00 BP 177/76 03/18/20 08:00 Pulse Ox 97 03/18/20 08:00 Intake & Output 03/17/20 03/18/20 03/18/20 18:59 06:59 18:59 Intake Total 320 450 120 Balance 320 450 120 Weight 70.5 kg Intake: Intake, IV Titration 100 Amount Sodium Ferric Gluconat- 100 Sucrose 125 mg In Sodium Chloride 0.9% 100 ml @ 100 mls/hr IVPB ONCE ONE Rx#:[id number] Oral 220 450 120 Other: Voiding Method Toilet Toilet Toilet # Voids 1 - Labs CBC & Chem 7: 03/14/20 20:26 03/16/20 06:02 Labs: Abnormal Lab Results - Last 24 Hours (Table) 03/17/20 03/17/20 03/17/20 Range/Units 11:59 16:43 20:27 POC Glucose (mg/dL) 135 H 169 H 188 H (75-99) mg/dL 03/18/20 Range/Units 06:09 POC Glucose (mg/dL) 126 H (75-99) mg/dL Assessment and Plan Plan: Assessment: 1. Acute kidney injury secondary to obstructive uropathy. Creatinine over 8 on admission. 6.96 as of March 16. Last hemodialysis on Wednesday. 2. Chronic kidney disease stage III with baseline creatinine 1.2-1.3. 3. Bilateral hydronephrosis. 4. Metabolic acidosis secondary to acute kidney injury. 5. Hyperkalemia secondary to acute kidney injury, stroke to uropathy and acidosis. Improved postdialysis. Plan: 2 hour hemodialysis treatment today. Scheduled for nephrostomy tubes placement today. Monitor for renal recovery. Morning labs pending.
[2020-03-18] MEDS ORDERED: SODIUM CHLORIDE 0.9% 250 ML IV ONE (11:23)
[2020-03-18 11:37] LABS: Potassium 4.4 mmol/L (3.5-5.1)
[2020-03-18] MEDS: fentaNYL (PF) 50 MCG/ML 2 ML AMP IVP ONE ×2 (11:45→11:54)
[2020-03-18] MEDS ORDERED: LIDOCAINE 1% INJ 10MG/ML (20 ML MDV) SQ ONE (11:47)
[2020-03-18] MEDS: MIDAZOLAM 2 MG/2 ML VIAL IVP ONE ×2 (11:49→12:07)
[2020-03-18] MEDS ORDERED: IOPAMIDOL-250 50ML BTL IV ONE (12:20)
[2020-03-18 12:23] LABS: Anisocytosis Slight; Basophils # (A) 0.1 k/uL (0-0.2); Basophils % (A) 1 %; Eosinophils # (A) 0.2 k/uL (0-0.7); Eosinophils % (A) 2 %; HCT 29.8 % (39.0-53.0); Hypochromasia Marked; Lymphocytes # (A) 0.8 k/uL (1.0-4.8); Lymphocytes % (A) 8 %; MCH 26.9 pg (25.0-35.0); MCHC 30.1 g/dL (31.0-37.0); MCV 89.4 fL (80.0-100.0); Mean Platelet Volume 7.8; Monocytes # (A) 0.5 k/uL (0-1.0); Monocytes % (A) 5 %; Neutrophils # (A) 8.3 k/uL (1.3-7.7); Neutrophils % (A) 82 %; Platelet Count 274 k/uL (150-450); RBC 3.34 m/uL (4.30-5.90); RDW 16.7 % (11.5-15.5); WBC 10.1 k/uL (3.8-10.6)
--- NOTE | 2020-03-18 13:33 | IR ---
EXAMINATION TYPE: IR nephrostomy, US guidance for procedure DATE OF EXAM: 03/18/2020 COMPARISON: Nuclear medicine PET/CT 03/09/2020 HISTORY: Hydronephrosis right, ureteral obstruction PROCEDURE: Maximal barrier technique was utilized. The skin overlying the right kidney was localized using ultrasound and the overlying skin prepped and draped. Ultrasound was utilized with sterile te chnique. Lidocaine used for local anesthesia. Skin layla was made with a scalpel. Access was gained under ultrasound with a 21-gauge needle to the right kidney. Urine returned in the hub of the needle . A 0.018 inch wire was advanced. The access site was dilated and the catheter and wire were upsized , 5 Arabic catheter was used with 0.035 inch angled Glidewire to select the ureter. Gentle hand injec tion of contrast verified placement in the collecting system. Urine returned in the hub of the cathet er. Access site was dilated, 8.5 Arabic nephrostomy tube advanced over the wire and fixed in place. Urine returned in the hub of the catheter. Catheter was fixed to the skin with 2-0 silk and a sterile dressing was placed. The patient remained in stable condition without complication. The patient wa s discharged to observation. Using similar technique, under ultrasound guidance, a 21-gauge needle was advanced into a midpole delgado yx. 0.018 inch wire was advanced following return of urine in the hub of the needle. Access site was upsized and subsequently a 8.5 Arabic nephrostomy tube was fixed in the renal pelvis, gentle hand inj ection of contrast verified placement. Spot images were obtained bilaterally. Minimal bleeding. Patie nt remained in stable condition. Routine 0.2 minutes fluoroscopy time, 93 intraoperative images. IMPRESSION: STATUS POST 8.5 SYRIAN right and left NEPHROSTOMY TUBE PLACEMENT WITH ULTRASOUND AND FLUO ROSCOPIC GUIDANCE. THIS PROCEDURE WAS PERFORMED BY THE UNDERSIGNED.
[2020-03-18] MEDS: traMADol 50 MG TAB PO PRN ×2 (15:29→21:56)
[2020-03-18 16:46] LABS: Glucose,Whole Blood 279 mg/dL (75-99)
--- NOTE | 2020-03-18 17:40 | P.PN ---
Subjective Progress Note Date: 03/18/20 Principal diagnosis: Acute Renal Failure, Dialysis Objective - Vital Signs Vital signs: Vital Signs Temp 98.1 F 03/18/20 08:00 Pulse 94 03/18/20 08:00 Resp 16 03/18/20 08:00 BP 177/76 03/18/20 08:00 Pulse Ox 97 03/18/20 08:00 Intake & Output 03/17/20 03/18/20 03/18/20 18:59 06:59 18:59 Intake Total 320 450 120 Balance 320 450 120 Weight 70.5 kg Intake: Intake, IV Titration 100 Amount Sodium Ferric Gluconat- 100 Sucrose 125 mg In Sodium Chloride 0.9% 100 ml @ 100 mls/hr IVPB ONCE ONE Rx#:[id number] Oral 220 450 120 Other: Voiding Method Toilet Toilet Toilet # Voids 1 - Exam generalized weakness and fatigue - Constitutional General appearance: mild distress - EENT Eyes: EOMI, PERRLA ENT: normal oropharynx - Neck Neck: no lymphadenopathy Thyroid: bilateral: normal size - Respiratory Respiratory: bilateral: diminished (right greater than left) - Cardiovascular Rhythm: regular Heart sounds: normal: S1, S2 - Gastrointestinal General gastrointestinal: normal bowel sounds, soft - Integumentary Integumentary: normal - Neurologic Neurologic: CNII-XII intact - Musculoskeletal 2-3+ edema bilateral lower extremities Musculoskeletal: generalized weakness, strength equal bilaterally - Psychiatric Psychiatric: A&O x's 3, appropriate affect - Labs CBC & Chem 7: 03/18/20 10:58 03/18/20 10:58 Labs: Abnormal Lab Results - Last 24 Hours (Table) 03/17/20 03/17/20 03/18/20 Range/Units 16:43 20:27 06:09 Carbon Dioxide (22-30) mmol/L BUN (9-20) mg/dL Creatinine (0.66-1.25) mg/dL Glucose (74-99) mg/dL POC Glucose (mg/dL) 169 H 188 H 126 H (75-99) mg/dL 03/18/20 Range/Units 10:58 Carbon Dioxide 20 L (22-30) mmol/L BUN 47 H (9-20) mg/dL Creatinine 7.80 H* (0.66-1.25) mg/dL Glucose 185 H (74-99) mg/dL POC Glucose (mg/dL) (75-99) mg/dL Assessment and Plan Plan: PET report reviewed and d/w pt Chest x-ray: report reviewed US - abdomen: report reviewed Assessment and Plan Acute renal failure - Nephrology management - Urgent Hemodialysis initiated this hospital stay, patient oliguric - Plan for hemodialysis today and nephrostomy tube placement for presence of obstructive uropathy - Recent PET scan had shown bilateral hydronephrosis, 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 He has not started systemic therapy for his cancer to date - Recent PET did not reveal any distant metasttic disease, although did reveal the newly developed complications which has preceded this hospital admission - With the picture of renal failure, the treatment options of systemic therapy do become more limited. Standard treatment for his diagnosis would usually contain a [place] based regimen, although contraindicated in patient with renal failure, unless he is deemed to receive chronic dialysis and in this case we could potentially move forward with a [place] based regimen in accordance with nephrology. Normocytic Anemia aplastic aregenerative - Last hemoglobin was on 03/14/20, Stable - Repeat today, if hemoglobin less than 7, transfuse during dialysis - Defer Epogen to Nephrology - Patients Ferritin was initially elevated, unknown if this is uinaccurate post transfusion, would repeat prior to any further iron supplementation. Physician Attest: I have completed the full history and physical, developed the above impression and plan and agree with above dictation, dictateded as a scribe
[2020-03-18] MEDS ORDERED: traMADol 50 MG TAB PO SCH (18:00)
[2020-03-18 20:26] LABS: Glucose,Whole Blood 285 mg/dL (75-99)
--- NOTE | 2020-03-18 22:27 | P.PN ---
Progress Note - Text Progress Note Date: 03/18/20 Chief Complaint: Abnormal labs History of presenting complaint: This is a 79-year-old patient of Dr. Pola Rodriguez. Chronic stable medical conditions include diabetes,, coronary artery disease with stent, hypertension, kidney stones , bowel and bladder cancer. On December 07 patient had a cystoscopy that showed severe hemorrhagic cystitis. He's had prior back surgery . Patient was referred to [facility] where he was found to have significant bladder cancer with local metastasis. Surgery was not done. Patient has resultant hydronephrosis. Also recently treated for a diverticular abscess and had a drain placed. Treated with IV antibiotics with resolution of the abscess. Also recent admission to the hospital with GI bleed showed duodenal bulb ulcer and gastritis. Patient presented to his oncologist. Has been getting more short of breath. Decreased appetite, chills. Decreased urine output. Some lower extremity swelling. Worsening of his creatinine. Dr. Hernandez from vascular surgery at placed a dialysis catheter yesterday evening. Does feel tired rundown. Slight cough. Admitted with acute obstructive uropathy renal failure. Dialysis catheter placed. Hemodialysis started. Today-intervention radiology had bilateral nephrostomy tube placed today. Has started to drain. Some local pain. No nausea vomiting. Patient is making little urine. Review of systems: Was done for constitutional, cardiovascular, GI, pulmonary. relevant finding as above Active Medications Acetaminophen (Acetaminophen Tab 325 Mg Tab) 650 mg PO Q6HR PRN PRN Reason: Fever and/ or Pain Last Admin: 03/18/20 06:23 Dose: 650 mg Documented by: Ascorbic Acid (Ascorbic Acid 500 Mg Tab) 500 mg PO DAILY@0900 [facility] Last Admin: 03/18/20 09:46 Dose: 500 mg Documented by: Cholecalciferol (Cholecalciferol 1,000 Unit Tab) 1,000 unit PO DAILY@0900 [facility] Last Admin: 03/18/20 09:46 Dose: 1,000 unit Documented by: Cyanocobalamin (Cyanocobalamin 500 Mcg Tab) 500 mcg PO DAILY@0900 [facility] Last Admin: 03/18/20 09:47 Dose: 500 mcg Documented by: Insulin Aspart (Insulin Aspart (Novolog) 100 Unit/Ml Vial) 0 unit SQ [facility]; Protocol Last Admin: 03/18/20 20:27 Dose: 4 unit Documented by: Levothyroxine Sodium (Levothyroxine 50 Mcg Tab) 50 mcg PO DAILY@0630 [facility] Last Admin: 03/18/20 06:23 Dose: 50 mcg Documented by: Naloxone HCl (Naloxone 0.4 Mg/Ml 1 Ml Vial) 0.2 mg IV Q2M PRN PRN Reason: Opioid Reversal Ondansetron HCl (Ondansetron 4 Mg/2 Ml Vial) 4 mg IVP Q6HR PRN PRN Reason: Nausea And Vomiting Pantoprazole Sodium (Pantoprazole 40 Mg Tablet) 40 mg PO AC-BID [facility] Last Admin: 03/18/20 17:09 Dose: 40 mg Documented by: Tramadol HCl (Tramadol 50 Mg Tab) 50 mg PO QID PRN PRN Reason: Mild Pain Last Admin: 03/18/20 21:56 Dose: 50 mg Documented by: Physical examination: VITAL SIGNS: 98.5, 104, 16, 170/83, 96% room air GENERAL: Propped in bed, awake EYES: Pupils equal. Conjunctiva pale. NECK: JVD unable to assess; masses not palpable. HEART: First and second heart sounds are normal; no edema. LUNGS: Respiratory rate increased; decreased breath sounds. ABDOMEN: Soft, nontender, liver spleen not palpable, no masses palpable. Bilateral nephrostomy tubes with draining bags PSYCH: Alert and oriented x3; mood and affect anxious. 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 Started on renal replacement therapy. 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 Continue current medication treatment plan. Continue with hemodialysis. Repeat labs.
[2020-03-19] MEDS: traMADol 50 MG TAB PO PRN ×2 (06:15→21:20)
[2020-03-19] MEDS: LEVOTHYROXINE 50 MCG TAB PO SCH (06:15)
[2020-03-19] MEDS: PANTOPRAZOLE 40 MG TABLET PO SCH ×2 (06:15→17:33)
[2020-03-19 06:19] LABS: Glucose,Whole Blood 317 mg/dL (75-99)
[2020-03-19] MEDS: INSULIN ASPART (NovoLOG) 100 UNIT/ML VIAL SQ SCH ×4 (06:20→21:20)
[2020-03-19] MEDS: ASCORBIC ACID 500 MG TAB PO SCH (08:15)
[2020-03-19] MEDS: CYANOCOBALAMIN 500 MCG TAB PO SCH (08:15)
[2020-03-19] MEDS: CHOLECALCIFEROL 1,000 UNIT TAB PO SCH (08:15)
[2020-03-19 08:33] LABS: Anisocytosis Slight; Basophils % (A) 0 %; Eosinophils % (A) 0 %; HCT 27.4 % (39.0-53.0); HGB 7.9 gm/dL (13.0-17.5); Hypochromasia Marked; Lymphocytes # (A) 0.5 k/uL (1.0-4.8); Lymphocytes % (A) 5 %; MCHC 28.9 g/dL (31.0-37.0); Mean Platelet Volume 7.7; Monocytes # (A) 0.4 k/uL (0-1.0); Monocytes % (A) 4 %; Neutrophils # (A) 10.5 k/uL (1.3-7.7); Neutrophils % (A) 91 %; Platelet Count 308 k/uL (150-450); RBC 3.05 m/uL (4.30-5.90); WBC 11.5 k/uL (3.8-10.6)
[2020-03-19 08:47] LABS: Calcium 9.1 mg/dL (8.4-10.2); Magnesium 1.8 mg/dL (1.6-2.3); Potassium 5.1 mmol/L (3.5-5.1)
--- NOTE | 2020-03-19 10:20 | P.PN ---
Subjective Patient is seen in follow-up for acute kidney injury on chronic kidney disease. Last hemodialysis was on Wednesday. Had bilateral nephrostomy tubes placed March 18. Has good output from the nephrostomy tubes. No vomiting or diarrhea. No chest pain or shortness of breath. Feels tired. Vital signs are stable. General: The patient appeared well nourished and normally developed. HEENT: Head exam is unremarkable. Neck is without jugular venous distension. LUNGS: Lungs are clear to auscultation and percussion. Breath sounds decreased. HEART: Rate and Rhythm are regular. ABDOMEN: Abdominal exam reveals normal bowel sounds. Non-tender and non- distended. EXTREMITITES: No clubbing, cyanosis, or edema. Objective - Vital Signs Vital signs: Vital Signs Temp 97.1 F L 03/19/20 08:00 Pulse 98 03/19/20 08:00 Resp 16 03/19/20 08:00 BP 120/57 03/19/20 08:00 Pulse Ox 99 03/19/20 08:00 Intake & Output 03/18/20 03/19/20 03/19/20 18:59 06:59 18:59 Intake Total 340 450 120 Output Total 1000 1740 450 Balance -660 -1290 -330 Weight 70.3 kg Intake: IV 100 Oral 240 450 120 Output: Drainage 300 1740 450 Left Lateral Back 630 150 Right Lateral Back 300 1110 300 Urine 700 Other: Voiding Method Toilet Toilet Toilet # Bowel Movements 1 - Labs CBC & Chem 7: 03/19/20 07:52 03/19/20 07:52 Labs: Abnormal Lab Results - Last 24 Hours (Table) 03/18/20 03/18/20 03/18/20 Range/Units 10:58 10:58 16:38 WBC (3.8-10.6) k/uL RBC 3.34 L (4.30-5.90) m/uL Hgb 9.0 L (13.0-17.5) gm/dL Hct 29.8 L (39.0-53.0) % MCHC 30.1 L (31.0-37.0) g/dL RDW 16.7 H (11.5-15.5) % Neutrophils # 8.3 H (1.3-7.7) k/uL Lymphocytes # 0.8 L (1.0-4.8) k/uL Chloride (98-107) mmol/L Carbon Dioxide 20 L (22-30) mmol/L BUN 47 H (9-20) mg/dL Creatinine 7.80 H* (0.66-1.25) mg/dL Glucose 185 H (74-99) mg/dL POC Glucose (mg/dL) 279 H (75-99) mg/dL 03/18/20 03/19/20 03/19/20 Range/Units 20:25 06:17 07:52 WBC (3.8-10.6) k/uL RBC (4.30-5.90) m/uL Hgb (13.0-17.5) gm/dL Hct (39.0-53.0) % MCHC (31.0-37.0) g/dL RDW (11.5-15.5) % Neutrophils # (1.3-7.7) k/uL Lymphocytes # (1.0-4.8) k/uL Chloride 108 H (98-107) mmol/L Carbon Dioxide 19 L (22-30) mmol/L BUN 51 H (9-20) mg/dL Creatinine 7.28 H* (0.66-1.25) mg/dL Glucose 284 H (74-99) mg/dL POC Glucose (mg/dL) 285 H 317 H (75-99) mg/dL 03/19/20 Range/Units 07:52 WBC 11.5 H (3.8-10.6) k/uL RBC 3.05 L (4.30-5.90) m/uL Hgb 7.9 L (13.0-17.5) gm/dL Hct 27.4 L (39.0-53.0) % MCHC 28.9 L (31.0-37.0) g/dL RDW 17.0 H (11.5-15.5) % Neutrophils # 10.5 H (1.3-7.7) k/uL Lymphocytes # 0.5 L (1.0-4.8) k/uL Chloride (98-107) mmol/L Carbon Dioxide (22-30) mmol/L BUN (9-20) mg/dL Creatinine (0.66-1.25) mg/dL Glucose (74-99) mg/dL POC Glucose (mg/dL) (75-99) mg/dL Assessment and Plan Plan: Assessment: 1. Acute kidney injury secondary to obstructive uropathy. Creatinine over 8 on admission - 7.28 today. Last hemodialysis on Wednesday. 2. Chronic kidney disease stage III with baseline creatinine 1.2-1.3. 3. Bilateral hydronephrosis status post nephrostomy tubes placement March 18. 4. Metabolic acidosis secondary to acute kidney injury. Expect further improvement postdialysis. 5. Hyperkalemia secondary to acute kidney injury, stroke to uropathy and acidosis. Improved postdialysis. Plan: 2 hour hemodialysis treatment today. Continue to monitor output from the nephrostomy tubes. Continue to monitor for renal recovery.
[2020-03-19 12:15] LABS: Glucose,Whole Blood 159 mg/dL (75-99)
[2020-03-19 17:01] LABS: Glucose,Whole Blood 202 mg/dL (75-99)
--- NOTE | 2020-03-19 20:08 | P.PN ---
Subjective Progress Note Date: 03/19/20 Principal diagnosis: Acute Renal Failure, Dialysis Sleepy today, Status post nephrostomy tubes yesterday Objective - Vital Signs Vital signs: Vital Signs Temp 97.2 F L 03/19/20 14:21 Pulse 90 03/19/20 16:00 Resp 16 03/19/20 16:00 BP 112/65 03/19/20 14:21 Pulse Ox 99 03/19/20 08:00 Intake & Output 03/19/20 03/19/20 03/20/20 06:59 18:59 06:59 Intake Total 450 360 Output Total 1740 950 Balance -1290 -590 Weight 70.3 kg 70.3 kg Intake: Oral 450 360 Output: Drainage 1740 450 Left Lateral Back 630 150 Right Lateral Back 1110 300 Urine 0 Hemodialysis 500 Other: Voiding Method Toilet Toilet # Voids 1 - Exam generalized weakness and fatigue - Constitutional General appearance: mild distress - EENT Eyes: EOMI, PERRLA ENT: normal oropharynx - Neck Neck: no lymphadenopathy Thyroid: bilateral: normal size - Respiratory Respiratory: bilateral: diminished (right greater than left) - Cardiovascular Rhythm: regular Heart sounds: normal: S1, S2 - Gastrointestinal General gastrointestinal: normal bowel sounds, soft - Integumentary Integumentary: normal Nephrostomy sites CDI - Neurologic Neurologic: CNII-XII intact - Musculoskeletal 2-3+ edema bilateral lower extremities Musculoskeletal: generalized weakness, strength equal bilaterally - Psychiatric Psychiatric: A&O x's 3, appropriate affect - Labs CBC & Chem 7: 03/19/20 07:52 03/19/20 07:52 Labs: Abnormal Lab Results - Last 24 Hours (Table) 03/18/20 03/19/20 03/19/20 Range/Units 20:25 06:17 07:52 WBC (3.8-10.6) k/uL RBC (4.30-5.90) m/uL Hgb (13.0-17.5) gm/dL Hct (39.0-53.0) % MCHC (31.0-37.0) g/dL RDW (11.5-15.5) % Neutrophils # (1.3-7.7) k/uL Lymphocytes # (1.0-4.8) k/uL Chloride 108 H (98-107) mmol/L Carbon Dioxide 19 L (22-30) mmol/L BUN 51 H (9-20) mg/dL Creatinine 7.28 H* (0.66-1.25) mg/dL Glucose 284 H (74-99) mg/dL POC Glucose (mg/dL) 285 H 317 H (75-99) mg/dL 03/19/20 03/19/20 03/19/20 Range/Units 07:52 12:13 16:49 WBC 11.5 H (3.8-10.6) k/uL RBC 3.05 L (4.30-5.90) m/uL Hgb 7.9 L (13.0-17.5) gm/dL Hct 27.4 L (39.0-53.0) % MCHC 28.9 L (31.0-37.0) g/dL RDW 17.0 H (11.5-15.5) % Neutrophils # 10.5 H (1.3-7.7) k/uL Lymphocytes # 0.5 L (1.0-4.8) k/uL Chloride (98-107) mmol/L Carbon Dioxide (22-30) mmol/L BUN (9-20) mg/dL Creatinine (0.66-1.25) mg/dL Glucose (74-99) mg/dL POC Glucose (mg/dL) 159 H 202 H (75-99) mg/dL Assessment and Plan Plan: PET report reviewed and d/w pt Chest x-ray: report reviewed US - abdomen: report reviewed Assessment and Plan Acute renal failure - Nephrology management - Urgent Hemodialysis initiated this hospital stay, patient oliguric - Plan for hemodialysis today and nephrostomy tube placement for presence of obstructive uropathy - Recent PET scan had shown bilateral hydronephrosis, 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 He has not started systemic therapy for his cancer to date - Recent PET did not reveal any distant metastatic disease, although did reveal the newly developed complications which has preceded this hospital admission - With the picture of renal failure, the treatment options of systemic therapy do become more limited. Standard treatment for his diagnosis would usually co ntain a [place] based regimen, although contraindicated in patient with renal failure, unless he is deemed to receive chronic dialysis and in this case we could potentially move forward with a [place] based regimen in accordance with nephrology. Normocytic Anemia aplastic aregenerative -Repeat Hemoglobin today stable - Repeat today, if hemoglobin less than 7, transfuse during dialysis - Defer Epogen to Nephrology - Patients Ferritin was initially elevated, unknown if this is uinaccurate post transfusion, would repeat prior to any further iron supplementation. Continue supportive care
[2020-03-19 20:38] LABS: Glucose,Whole Blood 211 mg/dL (75-99)
--- NOTE | 2020-03-19 20:43 | P.PN ---
Subjective Progress Note Date: 03/19/20 S/P bilateral nephrostomy tube placement on 03/18, no acute overnight event. having good urine output from bilateral nephrostomy tubes. Objective - Vital Signs Vital signs: Vital Signs Temp 97.2 F L 03/19/20 14:21 Pulse 90 03/19/20 16:00 Resp 16 03/19/20 16:00 BP 112/65 03/19/20 14:21 Pulse Ox 99 03/19/20 08:00 Intake & Output 03/19/20 03/19/20 03/20/20 06:59 18:59 06:59 Intake Total 450 360 Output Total 1740 950 Balance -1290 -590 Weight 70.3 kg 70.3 kg Intake: Oral 450 360 Output: Drainage 1740 450 Left Lateral Back 630 150 Right Lateral Back 1110 300 Urine 0 Hemodialysis 500 Other: Voiding Method Toilet Toilet # Voids 1 - Constitutional General appearance: Present: no acute distress - Genitourinary Genitourinary Comment(s): bilateral nephrostomy draining clear yellow urine - Psychiatric Psychiatric: Present: A&O x's 3 - Labs CBC & Chem 7: 03/19/20 07:52 03/19/20 07:52 Labs: Abnormal Lab Results - Last 24 Hours (Table) 03/18/20 03/19/20 03/19/20 Range/Units 20:25 06:17 07:52 WBC (3.8-10.6) k/uL RBC (4.30-5.90) m/uL Hgb (13.0-17.5) gm/dL Hct (39.0-53.0) % MCHC (31.0-37.0) g/dL RDW (11.5-15.5) % Neutrophils # (1.3-7.7) k/uL Lymphocytes # (1.0-4.8) k/uL Chloride 108 H (98-107) mmol/L Carbon Dioxide 19 L (22-30) mmol/L BUN 51 H (9-20) mg/dL Creatinine 7.28 H* (0.66-1.25) mg/dL Glucose 284 H (74-99) mg/dL POC Glucose (mg/dL) 285 H 317 H (75-99) mg/dL 03/19/20 03/19/20 03/19/20 Range/Units 07:52 12:13 16:49 WBC 11.5 H (3.8-10.6) k/uL RBC 3.05 L (4.30-5.90) m/uL Hgb 7.9 L (13.0-17.5) gm/dL Hct 27.4 L (39.0-53.0) % MCHC 28.9 L (31.0-37.0) g/dL RDW 17.0 H (11.5-15.5) % Neutrophils # 10.5 H (1.3-7.7) k/uL Lymphocytes # 0.5 L (1.0-4.8) k/uL Chloride (98-107) mmol/L Carbon Dioxide (22-30) mmol/L BUN (9-20) mg/dL Creatinine (0.66-1.25) mg/dL Glucose (74-99) mg/dL POC Glucose (mg/dL) 159 H 202 H (75-99) mg/dL Assessment and Plan Assessment: bilateral hydronephrosis due to invasive bladder cancer obstructing and obscuring both ureteral orifices. S/P bilateral nephrostomy tube placement Plan: -Will continue to trend creat, monitor UO. -F/u on oncology recs
--- NOTE | 2020-03-19 23:11 | P.PN ---
Progress Note - Text Progress Note Date: 03/19/20 Chief Complaint: Abnormal labs History of presenting complaint: This is a 79-year-old patient of Dr. Pola Rodriguez. Chronic stable medical conditions include diabetes,, coronary artery disease with stent, hypertension, kidney stones , bowel and bladder cancer. On December 07 patient had a cystoscopy that showed severe hemorrhagic cystitis. He's had prior back surgery . Patient was referred to [facility] where he was found to have significant bladder cancer with local metastasis. Surgery was not done. Patient has resultant hydronephrosis. Also recently treated for a diverticular abscess and had a drain placed. Treated with IV antibiotics with resolution of the abscess. Also recent admission to the hospital with GI bleed showed duodenal bulb ulcer and gastritis. Patient presented to his oncologist. Has been getting more short of breath. Decreased appetite, chills. Decreased urine output. Some lower extremity swelling. Worsening of his creatinine. Dr. Hernandez from vascular surgery at placed a dialysis catheter yesterday evening. Does feel tired rundown. Slight cough. Admitted with acute obstructive uropathy renal failure. Dialysis catheter placed. Hemodialysis started.intervention radiology had bilateral nephrostomy tube placed Today- getting hemodialysis today. Has been up to the bathroom with support. Feeling a bit better. Appetite improving. Review of systems: Was done for constitutional, cardiovascular, GI, pulmonary. r elevant finding as above Active Medications Acetaminophen (Acetaminophen Tab 325 Mg Tab) 650 mg PO Q6HR PRN PRN Reason: Fever and/ or Pain Last Admin: 03/18/20 06:23 Dose: 650 mg Documented by: Ascorbic Acid (Ascorbic Acid 500 Mg Tab) 500 mg PO DAILY@0900 [facility] Last Admin: 03/19/20 08:15 Dose: 500 mg Documented by: Cholecalciferol (Cholecalciferol 1,000 Unit Tab) 1,000 unit PO DAILY@0900 [facility] Last Admin: 03/19/20 08:15 Dose: 1,000 unit Documented by: Cyanocobalamin (Cyanocobalamin 500 Mcg Tab) 500 mcg PO DAILY@0900 [facility] Last Admin: 03/19/20 08:15 Dose: 500 mcg Documented by: Insulin Aspart (Insulin Aspart (Novolog) 100 Unit/Ml Vial) 0 unit SQ [facility]; Protocol Last Admin: 03/19/20 21:20 Dose: 3 unit Documented by: Levothyroxine Sodium (Levothyroxine 50 Mcg Tab) 50 mcg PO DAILY@0630 [facility] Last Admin: 03/19/20 06:15 Dose: 50 mcg Documented by: Naloxone HCl (Naloxone 0.4 Mg/Ml 1 Ml Vial) 0.2 mg IV Q2M PRN PRN Reason: Opioid Reversal Ondansetron HCl (Ondansetron 4 Mg/2 Ml Vial) 4 mg IVP Q6HR PRN PRN Reason: Nausea And Vomiting Pantoprazole Sodium (Pantoprazole 40 Mg Tablet) 40 mg PO AC-BID [facility] Last Admin: 03/19/20 17:33 Dose: 40 mg Documented by: Tramadol HCl (Tramadol 50 Mg Tab) 50 mg PO QID PRN PRN Reason: Mild Pain Last Admin: 03/19/20 21:20 Dose: 50 mg Documented by: Physical examination: VITAL SIGNS: 97.2, 90, 18, 112/65, GENERAL: Propped in bed, comfortable EYES: Pupils equal. Conjunctiva pale. NECK: JVD unable to assess; masses not palpable. HEART: First and second heart sounds are normal; no edema. LUNGS: Respiratory rate increased; decreased breath sounds. ABDOMEN: Soft, nontender, liver spleen not palpable, no masses palpable. Bilateral nephrostomy tubes with draining bags PSYCH: Alert and oriented x3; mood and affect anxious. 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 Started on renal replacement therapy. 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 Recent PET scan did not show any distant metastatic disease. Options are limited for treatment. Plan: Continue with hemodialysis. Expect patient renal function to significant improvement. Increase activity. Further plan depending upon patient's functional status and renal function.
[2020-03-20 06:13] LABS: Glucose,Whole Blood 129 mg/dL (75-99)
[2020-03-20] MEDS: INSULIN ASPART (NovoLOG) 100 UNIT/ML VIAL SQ SCH ×4 (06:13→22:22)
[2020-03-20] MEDS: LEVOTHYROXINE 50 MCG TAB PO SCH (06:14)
[2020-03-20] MEDS: PANTOPRAZOLE 40 MG TABLET PO SCH ×2 (06:14→17:23)
--- NOTE | 2020-03-20 08:07 | P.PN ---
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 Bilateral nephrostomy tubes were placed on Wednesday. We'll see how his creatinine responds. I would leave the nephrostomy tubes as is for a while before converting them to internal stents. Nephrology and oncology are following. Objective - Vital Signs Vital signs: Vital Signs Temp 98.0 F 03/20/20 04:53 Pulse 89 03/20/20 04:53 Resp 16 03/20/20 04:53 BP 118/58 03/20/20 04:53 Pulse Ox 95 03/20/20 04:53 Intake & Output 03/19/20 03/20/20 03/20/20 18:59 06:59 18:59 Intake Total 360 320 Output Total 950 1050 Balance -590 -730 Weight 70.3 kg Intake: Oral 360 320 Output: Drainage 450 1050 Left Lateral Back 150 425 Right Lateral Back 300 625 Urine 0 Hemodialysis 500 Other: Voiding Method Toilet # Voids 1 - Labs CBC & Chem 7: 03/19/20 07:52 03/19/20 07:52 Labs: Abnormal Lab Results - Last 24 Hours (Table) 03/19/20 03/19/20 03/19/20 Range/Units 07:52 07:52 12:13 WBC 11.5 H (3.8-10.6) k/uL RBC 3.05 L (4.30-5.90) m/uL Hgb 7.9 L (13.0-17.5) gm/dL Hct 27.4 L (39.0-53.0) % MCHC 28.9 L (31.0-37.0) g/dL RDW 17.0 H (11.5-15.5) % Neutrophils # 10.5 H (1.3-7.7) k/uL Lymphocytes # 0.5 L (1.0-4.8) k/uL Chloride 108 H (98-107) mmol/L Carbon Dioxide 19 L (22-30) mmol/L BUN 51 H (9-20) mg/dL Creatinine 7.28 H* (0.66-1.25) mg/dL Glucose 284 H (74-99) mg/dL POC Glucose (mg/dL) 159 H (75-99) mg/dL 03/19/20 03/19/20 03/20/20 Range/Units 16:49 20:36 06:09 WBC (3.8-10.6) k/uL RBC (4.30-5.90) m/uL Hgb (13.0-17.5) gm/dL Hct (39.0-53.0) % MCHC (31.0-37.0) g/dL RDW (11.5-15.5) % Neutrophils # (1.3-7.7) k/uL Lymphocytes # (1.0-4.8) k/uL Chloride (98-107) mmol/L Carbon Dioxide (22-30) mmol/L BUN (9-20) mg/dL Creatinine (0.66-1.25) mg/dL Glucose (74-99) mg/dL POC Glucose (mg/dL) 202 H 211 H 129 H (75-99) mg/dL
[2020-03-20] MEDS: CHOLECALCIFEROL 1,000 UNIT TAB PO SCH (08:16)
[2020-03-20] MEDS: ASCORBIC ACID 500 MG TAB PO SCH (08:16)
[2020-03-20] MEDS: CYANOCOBALAMIN 500 MCG TAB PO SCH (08:16)
[2020-03-20 08:18] LABS: Calcium 8.7 mg/dL (8.4-10.2); Magnesium 1.7 mg/dL (1.6-2.3); Potassium 4.3 mmol/L (3.5-5.1)
--- NOTE | 2020-03-20 09:21 | P.PN ---
Subjective Patient is seen in follow-up for acute kidney injury on chronic kidney disease. Last hemodialysis was on March 19. Had bilateral nephrostomy tubes placed March 18. Has good output from the nephrostomy tubes. No vomiting or diarrhea. No chest pain or shortness of breath. Vital signs are stable. General: The patient appeared well nourished and normally developed. HEENT: Head exam is unremarkable. Neck is without jugular venous distension. LUNGS: Lungs are clear to auscultation and percussion. Breath sounds decreased. HEART: Rate and Rhythm are regular. ABDOMEN: Abdominal exam reveals normal bowel sounds. Non-tender and non-diste nded. EXTREMITITES: No clubbing, cyanosis, or edema. Objective - Vital Signs Vital signs: Vital Signs Temp 98.0 F 03/20/20 04:53 Pulse 89 03/20/20 04:53 Resp 16 03/20/20 04:53 BP 118/58 03/20/20 04:53 Pulse Ox 95 03/20/20 04:53 Intake & Output 03/19/20 03/20/20 03/20/20 18:59 06:59 18:59 Intake Total 360 320 240 Output Total 950 1050 Balance -590 -730 240 Weight 70.3 kg Intake: Oral 360 320 240 Output: Drainage 450 1050 Left Lateral Back 150 425 Right Lateral Back 300 625 Urine 0 Hemodialysis 500 Other: Voiding Method Toilet # Voids 1 - Labs CBC & Chem 7: 03/19/20 07:52 03/20/20 07:28 Labs: Abnormal Lab Results - Last 24 Hours (Table) 03/19/20 03/19/20 03/19/20 Range/Units 12:13 16:49 20:36 Chloride (98-107) mmol/L BUN (9-20) mg/dL Creatinine (0.66-1.25) mg/dL Glucose (74-99) mg/dL POC Glucose (mg/dL) 159 H 202 H 211 H (75-99) mg/dL 03/20/20 03/20/20 Range/Units 06:09 07:28 Chloride 108 H (98-107) mmol/L BUN 46 H (9-20) mg/dL Creatinine 5.09 H (0.66-1.25) mg/dL Glucose 137 H (74-99) mg/dL POC Glucose (mg/dL) 129 H (75-99) mg/dL Assessment and Plan Plan: Assessment: 1. Acute kidney injury secondary to obstructive uropathy. Creatinine over 8 on admission - 5.09 today. Last hemodialysis on March 19. 2. Chronic kidney disease stage III with baseline creatinine 1.2-1.3. 3. Bilateral hydronephrosis status post nephrostomy tubes placement March 18. 4. Metabolic acidosis secondary to acute kidney injury. Better. 5. Hyperkalemia secondary to acute kidney injury, stroke to uropathy and acidosis. Improved postdialysis. Plan: Hold off on hemodialysis today. Continue to monitor output from the nephrostomy tubes. Continue to monitor for renal recovery. Repeat electrolytes in the morning.
[2020-03-20 11:45] LABS: Glucose,Whole Blood 147 mg/dL (75-99)
[2020-03-20] MEDS: ACETAMINOPHEN TAB 325 MG TAB PO PRN (14:52)
[2020-03-20 16:52] LABS: Glucose,Whole Blood 187 mg/dL (75-99)
--- NOTE | 2020-03-20 18:50 | P.PN ---
Progress Note - Text Progress Note Date: 03/20/20 Chief Complaint: Abnormal labs History of presenting complaint: This is a 79-year-old patient of Dr. Pola Rodriguez. Chronic stable medical conditions include diabetes,, coronary artery disease with stent, hypertension, kidney stones , bowel and bladder cancer. On December 07 patient had a cystoscopy that showed severe hemorrhagic cystitis. He's had prior back surgery . Patient was referred to [facility] where he was found to have significant bladder cancer with local metastasis. Surgery was not done. Patient has resultant hydronephrosis. Also recently treated for a diverticular abscess and had a drain placed. Treated with IV antibiotics with resolution of the abscess. Also recent admission to the hospital with GI bleed showed duodenal bulb ulcer and gastritis. Patient presented to his oncologist. Has been getting more short of breath. Decreased appetite, chills. Decreased urine output. Some lower extremity swelling. Worsening of his creatinine. Dr. Hernandez from vascular surgery at placed a dialysis catheter yesterday evening. Does feel tired rundown. Slight cough. Admitted with acute obstructive uropathy renal failure. Dialysis catheter placed. Hemodialysis started.intervention radiology had bilateral nephrostomy tube placed Today- feeling better. No hemodialysis today. Up to the bathroom. Eating better. Review of systems: Was done for constitutional, cardiovascular, GI, pulmonary. relevant finding as above Active Medications Acetaminophen (Acetaminophen Tab 325 Mg Tab) 650 mg PO Q6HR PRN PRN Reason: Fever and/ or Pain Last Admin: 03/20/20 14:52 Dose: 650 mg Documented by: Ascorbic Acid (Ascorbic Acid 500 Mg Tab) 500 mg PO DAILY@0900 [facility] Last Admin: 03/20/20 08:16 Dose: 500 mg Documented by: Cholecalciferol (Cholecalciferol 1,000 Unit Tab) 1,000 unit PO DAILY@0900 [facility] Last Admin: 03/20/20 08:16 Dose: 1,000 unit Documented by: Cyanocobalamin (Cyanocobalamin 500 Mcg Tab) 500 mcg PO DAILY@0900 [facility] Last Admin: 03/20/20 08:16 Dose: 500 mcg Documented by: Insulin Aspart (Insulin Aspart (Novolog) 100 Unit/Ml Vial) 0 unit SQ [facility]; Protocol Last Admin: 03/20/20 17:23 Dose: 2 unit Documented by: Levothyroxine Sodium (Levothyroxine 50 Mcg Tab) 50 mcg PO DAILY@0630 [facility] Last Admin: 03/20/20 06:14 Dose: 50 mcg Documented by: Naloxone HCl (Naloxone 0.4 Mg/Ml 1 Ml Vial) 0.2 mg IV Q2M PRN PRN Reason: Opioid Reversal Ondansetron HCl (Ondansetron 4 Mg/2 Ml Vial) 4 mg IVP Q6HR PRN PRN Reason: Nausea And Vomiting Pantoprazole Sodium (Pantoprazole 40 Mg Tablet) 40 mg PO AC-BID [facility] Last Admin: 03/20/20 17:23 Dose: 40 mg Documented by: Tramadol HCl (Tramadol 50 Mg Tab) 50 mg PO QID PRN PRN Reason: Mild Pain Last Admin: 03/19/20 21:20 Dose: 50 mg Documented by: Physical examination: VITAL SIGNS: 97.6, 87, 20, 117/58, 97% room air GENERAL: Sitting up comfortable EYES: Pupils equal. Conjunctiva pale. NECK: JVD unable to assess; masses not palpable. HEART: First and second heart sounds are normal; no edema. LUNGS: Respiratory rate increased; decreased breath sounds. ABDOMEN: Soft, nontender, liver spleen not palpable, no masses palpable. Bilateral nephrostomy tubes with draining bags PSYCH: Alert and oriented x3; mood and affect anxious. 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 Started on renal replacement therapy. 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 Recent PET scan did not show any distant metastatic disease. Options are limited for treatment. Plan: Creatinine condition improved. Follow with nephrology. Discussed with the patient. Looking to discharge to home with home care.
[2020-03-20 20:23] LABS: Glucose,Whole Blood 182 mg/dL (75-99)
--- NOTE | 2020-03-20 20:51 | P.PN ---
Subjective Progress Note Date: 03/20/20 Principal diagnosis: Acute Renal Failure, Dialysis Objective - Vital Signs Vital signs: Vital Signs Temp 97.8 F 03/20/20 20:18 Pulse 98 03/20/20 20:18 Resp 18 03/20/20 20:18 BP 143/67 03/20/20 20:18 Pulse Ox 98 03/20/20 20:18 Intake & Output 03/20/20 03/20/20 03/21/20 06:59 18:59 06:59 Intake Total 320 956 Output Total 1050 525 600 Balance -730 431 -600 Weight 69 kg Intake: Oral 320 956 Output: Drainage 1050 525 600 Left Lateral Back 425 275 200 Right Lateral Back 625 250 400 - Exam generalized weakness and fatigue - Constitutional General appearance: mild distress - EENT Eyes: EOMI, PERRLA ENT: normal oropharynx - Neck Neck: no lymphadenopathy Thyroid: bilateral: normal size - Respiratory Respiratory: bilateral: diminished (right greater than left) - Cardiovascular Rhythm: regular Heart sounds: normal: S1, S2 - Gastrointestinal General gastrointestinal: normal bowel sounds, soft - Integumentary Integumentary: normal Nephrostomy sites CDI - Neurologic Neurologic: CNII-XII intact - Musculoskeletal 2-3+ edema bilateral lower extremities Musculoskeletal: generalized weakness, strength equal bilaterally - Psychiatric Psychiatric: A&O x's 3, appropriate affect - Labs CBC & Chem 7: 03/19/20 07:52 03/20/20 07:28 Labs: Abnormal Lab Results - Last 24 Hours (Table) 03/20/20 03/20/20 03/20/20 Range/Units 06:09 07:28 11:39 Chloride 108 H (98-107) mmol/L BUN 46 H (9-20) mg/dL Creatinine 5.09 H (0.66-1.25) mg/dL Glucose 137 H (74-99) mg/dL POC Glucose (mg/dL) 129 H 147 H (75-99) mg/dL 03/20/20 03/20/20 Range/Units 16:41 20:17 Chloride (98-107) mmol/L BUN (9-20) mg/dL Creatinine (0.66-1.25) mg/dL Glucose (74-99) mg/dL POC Glucose (mg/dL) 187 H 182 H (75-99) mg/dL Assessment and Plan Plan: PET report reviewed and d/w pt Chest x-ray: report reviewed US - abdomen: report reviewed Assessment and Plan Acute renal failure - Nephrology management - Urgent Hemodialysis initiated this hospital stay, Creatinine is improving - Recent PET scan had shown bilateral hydronephrosis, 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 He has not started systemic therapy for his cancer to date - Recent PET did not reveal any distant metastatic disease, although did reveal the newly developed complications which has preceded this hospital admission - With the picture of renal failure, the treatment options of systemic therapy do become more limited. Standard treatment for his diagnosis would usually contain a [place] based regimen, although contraindicated in patient with renal failure, unless he is deemed to receive chronic dialysis and in this case we could potentially move forward with a [place] based regimen in accordance with nephrology. Normocytic Anemia aplastic aregenerative -Repeat Hemoglobin today stable yesterday - Repeat today, if hemoglobin less than 7, transfuse during dialysis - Epogen per Nephrology - Patients Ferritin was initially elevated, draw possibly after transfusion Continue supportive care Repeat CBC in am Transfusion less than 7 PLan for chemotherapy after resolution of above Physician Attest: I have completed the full hiistory and physical and agree with above dictation dictated as a scribe
[2020-03-20] MEDS: traMADol 50 MG TAB PO PRN (22:22)
[2020-03-21] MEDS: ACETAMINOPHEN TAB 325 MG TAB PO PRN (02:11)
[2020-03-21 06:07] LABS: Glucose,Whole Blood 153 mg/dL (75-99)
[2020-03-21] MEDS: INSULIN ASPART (NovoLOG) 100 UNIT/ML VIAL SQ SCH ×4 (06:30→20:49)
[2020-03-21] MEDS: PANTOPRAZOLE 40 MG TABLET PO SCH ×2 (06:30→17:24)
[2020-03-21] MEDS: LEVOTHYROXINE 50 MCG TAB PO SCH (06:30)
[2020-03-21] MEDS: ASCORBIC ACID 500 MG TAB PO SCH (08:58)
[2020-03-21] MEDS: CHOLECALCIFEROL 1,000 UNIT TAB PO SCH (08:58)
[2020-03-21] MEDS: CYANOCOBALAMIN 500 MCG TAB PO SCH (08:58)
--- NOTE | 2020-03-21 09:22 | P.PN ---
Subjective Patient is seen in follow-up for acute kidney injury on chronic kidney disease. Last hemodialysis was on March 19. Had bilateral nephrostomy tubes placed March 18. Has good output from the nephrostomy tubes. No vomiting or diarrhea. No chest pain or shortness of breath. Vital signs are stable. General: The patient appeared well nourished and normally developed. HEENT: Head exam is unremarkable. Neck is without jugular venous distension. LUNGS: Lungs are clear to auscultation and percussion. Breath sounds decreased. HEART: Rate and Rhythm are regular. ABDOMEN: Abdominal exam reveals normal bowel sounds. Non-tender and non-diste nded. EXTREMITITES: 1+ edema. Objective - Vital Signs Vital signs: Vital Signs Temp 98.1 F 03/21/20 08:58 Pulse 83 03/21/20 08:58 Resp 18 03/21/20 08:58 BP 123/64 03/21/20 08:58 Pulse Ox 98 03/21/20 08:58 Intake & Output 03/20/20 03/21/20 03/21/20 18:59 06:59 18:59 Intake Total 956 240 Output Total 525 2350 Balance 431 -2350 240 Weight 69 kg Intake: Oral 956 240 Output: Drainage 525 2100 Left Lateral Back 275 675 Right Lateral Back 250 1425 Urine 250 Other: # Voids 2 - Labs CBC & Chem 7: 03/19/20 07:52 03/20/20 07:28 Labs: Abnormal Lab Results - Last 24 Hours (Table) 03/20/20 03/20/20 03/20/20 Range/Units 11:39 16:41 20:17 POC Glucose (mg/dL) 147 H 187 H 182 H (75-99) mg/dL 03/21/20 Range/Units 06:04 POC Glucose (mg/dL) 153 H (75-99) mg/dL Assessment and Plan Plan: Assessment: 1. Acute kidney injury secondary to obstructive uropathy. Creatinine over 8 on admission - 5.09 as of yesterday. Last hemodialysis on March 19. 2. Chronic kidney disease stage III with baseline creatinine 1.2-1.3. 3. Bilateral hydronephrosis status post nephrostomy tubes placement March 18. 4. Metabolic acidosis secondary to acute kidney injury. Better. 5. Hyperkalemia secondary to acute kidney injury, stroke to uropathy and acidosis. Improved postdialysis. 6. Bladder cancer. Oncology following. Plan: Follow-up morning labs. Continue to assess daily for need for renal replacement therapy. Continue to monitor output from the nephrostomy tubes. Continue to monitor for renal recovery. Repeat electrolytes in the morning.
[2020-03-21 09:32] LABS: Anisocytosis Slight; Basophils % (A) 0 %; Eosinophils # (A) 0.3 k/uL (0-0.7); Eosinophils % (A) 3 %; HCT 27.9 % (39.0-53.0); HGB 8.1 gm/dL (13.0-17.5); Hypochromasia Marked; Lymphocytes # (A) 1.3 k/uL (1.0-4.8); Lymphocytes % (A) 12 %; MCH 25.9 pg (25.0-35.0); MCHC 28.9 g/dL (31.0-37.0); MCV 89.7 fL (80.0-100.0); Mean Platelet Volume 7.6; Monocytes # (A) 0.8 k/uL (0-1.0); Monocytes % (A) 7 %; Neutrophils % (A) 75 %; Platelet Count 285 k/uL (150-450); RBC 3.11 m/uL (4.30-5.90); RDW 16.8 % (11.5-15.5); WBC 10.7 k/uL (3.8-10.6)
[2020-03-21 09:47] LABS: Calcium 8.7 mg/dL (8.4-10.2); Magnesium 1.6 mg/dL (1.6-2.3); Potassium 4.1 mmol/L (3.5-5.1)
[2020-03-21 12:07] LABS: Glucose,Whole Blood 188 mg/dL (75-99)
[2020-03-21 12:15] LABS: Hepatitis BE Antigen NEG (Negative)
[2020-03-21 12:17] LABS: Hepatitis BE Antibody NEG (Negative)
[2020-03-21 12:48] VITALS: BMI 23.8
[2020-03-21 17:11] LABS: Glucose,Whole Blood 156 mg/dL (75-99)
[2020-03-21 20:37] LABS: Glucose,Whole Blood 127 mg/dL (75-99)
[2020-03-21] MEDS: traMADol 50 MG TAB PO PRN (23:52)
--- NOTE | 2020-03-22 00:12 | P.PN ---
Progress Note - Text Progress Note Date: 03/21/20 Chief Complaint: Abnormal labs History of presenting complaint: This is a 79-year-old patient of Dr. Pola Rodriguez. Chronic stable medical conditions include diabetes,, coronary artery disease with stent, hypertension, kidney stones , bowel and bladder cancer. On December 07 patient had a cystoscopy that showed severe hemorrhagic cystitis. He's had prior back surgery . Patient was referred to [facility] where he was found to have significant bladder cancer with local metastasis. Surgery was not done. Patient has resultant hydronephrosis. Also recently treated for a diverticular abscess and had a drain placed. Treated with IV antibiotics with resolution of the abscess. Also recent admission to the hospital with GI bleed showed duodenal bulb ulcer and gastritis. Patient presented to his oncologist. Has been getting more short of breath. Decreased appetite, chills. Decreased urine output. Some lower extremity swelling. Worsening of his creatinine. Dr. Hernandez from vascular surgery at placed a dialysis catheter yesterday evening. Does feel tired rundown. Slight cough. Admitted with acute obstructive uropathy renal failure. Dialysis catheter placed. Hemodialysis started.intervention radiology had bilateral nephrostomy tube placed Today- feeling better. No hemodialysis today. . Eating better. Review of systems: Was done for constitutional, cardiovascular, GI, pulmonary. relevant finding as above Active Medications Acetaminophen (Acetaminophen Tab 325 Mg Tab) 650 mg PO Q6HR PRN PRN Reason: Fever and/ or Pain Last Admin: 03/21/20 02:11 Dose: 650 mg Documented by: Ascorbic Acid (Ascorbic Acid 500 Mg Tab) 500 mg PO DAILY@0900 REPLACED BY [facility] Last Admin: 03/21/20 08:58 Dose: 500 mg Documented by: Cholecalciferol (Cholecalciferol 1,000 Unit Tab) 1,000 unit PO DAILY@0900 REPLACED BY [facility] Last Admin: 03/21/20 08:58 Dose: 1,000 unit Documented by: Cyanocobalamin (Cyanocobalamin 500 Mcg Tab) 500 mcg PO DAILY@0900 REPLACED BY [facility] Last Admin: 03/21/20 08:58 Dose: 500 mcg Documented by: Insulin Aspart (Insulin Aspart (Novolog) 100 Unit/Ml Vial) 0 unit SQ [facility]; Protocol Last Admin: 03/21/20 20:49 Dose: Not Given Documented by: Levothyroxine Sodium (Levothyroxine 50 Mcg Tab) 50 mcg PO DAILY@0630 REPLACED BY [facility] Last Admin: 03/21/20 06:30 Dose: 50 mcg Documented by: Naloxone HCl (Naloxone 0.4 Mg/Ml 1 Ml Vial) 0.2 mg IV Q2M PRN PRN Reason: Opioid Reversal Ondansetron HCl (Ondansetron 4 Mg/2 Ml Vial) 4 mg IVP Q6HR PRN PRN Reason: Nausea And Vomiting Pantoprazole Sodium (Pantoprazole 40 Mg Tablet) 40 mg PO AC-BID REPLACED BY [facility] Last Admin: 03/21/20 17:24 Dose: 40 mg Documented by: Tramadol HCl (Tramadol 50 Mg Tab) 50 mg PO QID PRN PRN Reason: Mild Pain Last Admin: 03/21/20 23:52 Dose: 50 mg Documented by: Physical examination: VITAL SIGNS: 99, 88, 20, 145/68, 99% room air GENERAL: Sitting up comfortable EYES: Pupils equal. Conjunctiva pale. NECK: JVD unable to assess; masses not palpable. HEART: First and second heart sounds are normal; no edema. LUNGS: Respiratory rate increased; decreased breath sounds. ABDOMEN: Soft, nontender, liver spleen not palpable, no masses palpable. Bilateral nephrostomy tubes with draining bags PSYCH: Alert and oriented x3; mood and affect anxious. 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 Started on renal replacement therapy. 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 Recent PET scan did not show any distant metastatic disease. Options are limited for treatment. Plan: Discussed with. Creatinine improving. Hopefully discharge in next 24 hours. Possibly discharge home. Outpatient dialysis decision will be made tomorrow.
[2020-03-22] MEDS: INSULIN ASPART (NovoLOG) 100 UNIT/ML VIAL SQ SCH ×3 (06:18→18:06)
[2020-03-22] MEDS: PANTOPRAZOLE 40 MG TABLET PO SCH ×2 (06:19→18:07)
[2020-03-22] MEDS: LEVOTHYROXINE 50 MCG TAB PO SCH (06:19)
[2020-03-22 06:20] LABS: Glucose,Whole Blood 182 mg/dL (75-99)
--- NOTE | 2020-03-22 08:08 | P.PN ---
Subjective Progress Note Date: 03/22/20 The patient is in the hospital with arf secondary to obstruction from invasive bladder ca. He is sp bilateral n tube placement Cr down to 4.6[8.0] He continues to feel better. Chemothreapy for ca bladder after he ahas improved from his arf Objective - Vital Signs Vital signs: Vital Signs Temp 98.4 F 03/22/20 03:06 Pulse 89 03/22/20 03:06 Resp 18 03/22/20 03:06 BP 153/78 03/22/20 03:06 Pulse Ox 100 03/22/20 03:06 Intake & Output 03/21/20 03/22/20 03/22/20 18:59 06:59 18:59 Intake Total 720 120 Output Total 900 1900 Balance -180 -1780 Weight 69 kg 66.3 kg Intake: Oral 720 120 Output: Drainage 900 1900 Left Lateral Back 325 700 Right Lateral Back 575 1200 Other: Voiding Method Toilet Toilet - Labs CBC & Chem 7: 03/21/20 07:30 03/21/20 07:30 Labs: Abnormal Lab Results - Last 24 Hours (Table) 03/21/20 03/21/20 03/21/20 Range/Units 07:30 07:30 12:00 WBC 10.7 H (3.8-10.6) k/uL RBC 3.11 L (4.30-5.90) m/uL Hgb 8.1 L (13.0-17.5) gm/dL Hct 27.9 L (39.0-53.0) % MCHC 28.9 L (31.0-37.0) g/dL RDW 16.8 H (11.5-15.5) % Neutrophils # 8.0 H (1.3-7.7) k/uL BUN 46 H (9-20) mg/dL Creatinine 4.63 H (0.66-1.25) mg/dL Glucose 119 H (74-99) mg/dL POC Glucose (mg/dL) 188 H (75-99) mg/dL 03/21/20 03/21/20 03/22/20 Range/Units 17:01 20:36 06:15 WBC (3.8-10.6) k/uL RBC (4.30-5.90) m/uL Hgb (13.0-17.5) gm/dL Hct (39.0-53.0) % MCHC (31.0-37.0) g/dL RDW (11.5-15.5) % Neutrophils # (1.3-7.7) k/uL BUN (9-20) mg/dL Creatinine (0.66-1.25) mg/dL Glucose (74-99) mg/dL POC Glucose (mg/dL) 156 H 127 H 182 H (75-99) mg/dL
[2020-03-22] MEDS: CYANOCOBALAMIN 500 MCG TAB PO SCH (09:01)
[2020-03-22] MEDS: ASCORBIC ACID 500 MG TAB PO SCH (09:01)
[2020-03-22] MEDS: CHOLECALCIFEROL 1,000 UNIT TAB PO SCH (09:01)
--- NOTE | 2020-03-22 09:16 | P.PN ---
Subjective Patient is seen in follow-up for acute kidney injury on chronic kidney disease. Last hemodialysis was on March 19. Had bilateral nephrostomy tubes placed March 18. Has good output from the nephrostomy tubes. No vomiting or diarrhea. No chest pain or shortness of breath. Vital signs are stable. General: The patient appeared well nourished and normally developed. HEENT: Head exam is unremarkable. Neck is without jugular venous distension. LUNGS: Lungs are clear to auscultation and percussion. Breath sounds decreased. HEART: Rate and Rhythm are regular. ABDOMEN: Abdominal exam reveals normal bowel sounds. Non-tender and non-diste nded. EXTREMITITES: 1+ edema. Objective - Vital Signs Vital signs: Vital Signs Temp 97.8 F 03/22/20 09:04 Pulse 91 03/22/20 09:04 Resp 16 03/22/20 09:04 BP 126/61 03/22/20 09:04 Pulse Ox 97 03/22/20 09:04 Intake & Output 03/21/20 03/22/20 03/22/20 18:59 06:59 18:59 Intake Total 720 120 Output Total 900 1900 Balance -180 -1780 Weight 69 kg 66.3 kg Intake: Oral 720 120 Output: Drainage 900 1900 Left Lateral Back 325 700 Right Lateral Back 575 1200 Other: Voiding Method Toilet Toilet - Labs CBC & Chem 7: 03/21/20 07:30 03/21/20 07:30 Labs: Abnormal Lab Results - Last 24 Hours (Table) 03/21/20 03/21/20 03/21/20 Range/Units 07:30 07:30 12:00 WBC 10.7 H (3.8-10.6) k/uL RBC 3.11 L (4.30-5.90) m/uL Hgb 8.1 L (13.0-17.5) gm/dL Hct 27.9 L (39.0-53.0) % MCHC 28.9 L (31.0-37.0) g/dL RDW 16.8 H (11.5-15.5) % Neutrophils # 8.0 H (1.3-7.7) k/uL BUN 46 H (9-20) mg/dL Creatinine 4.63 H (0.66-1.25) mg/dL Glucose 119 H (74-99) mg/dL POC Glucose (mg/dL) 188 H (75-99) mg/dL 03/21/20 03/21/20 03/22/20 Range/Units 17:01 20:36 06:15 WBC (3.8-10.6) k/uL RBC (4.30-5.90) m/uL Hgb (13.0-17.5) gm/dL Hct (39.0-53.0) % MCHC (31.0-37.0) g/dL RDW (11.5-15.5) % Neutrophils # (1.3-7.7) k/uL BUN (9-20) mg/dL Creatinine (0.66-1.25) mg/dL Glucose (74-99) mg/dL POC Glucose (mg/dL) 156 H 127 H 182 H (75-99) mg/dL Assessment and Plan Plan: Assessment: 1. Acute kidney injury secondary to obstructive uropathy. Creatinine over 8 on admission - 4.63 as of yesterday. Last hemodialysis on March 19. 2. Chronic kidney disease stage III with baseline creatinine 1.2-1.3. 3. Bilateral hydronephrosis status post nephrostomy tubes placement March 18. 4. Metabolic acidosis secondary to acute kidney injury. Better. 5. Hyperkalemia secondary to acute kidney injury, stroke to uropathy and acidosis. Improved postdialysis. 6. Bladder cancer. Oncology following. Plan: Follow-up morning labs. Continue to assess daily for need for renal replacement therapy. Continue to monitor output from the nephrostomy tubes. If renal function continues to improve, will remove dialysis catheter and he should be able to be discharged. Repeat BMP and magnesium level 2-3 days postdischarge. Follow up outpatient in 1 week.
[2020-03-22 11:00] LABS: Anisocytosis Slight; Basophils # (A) 0.1 k/uL (0-0.2); Basophils % (A) 1 %; Eosinophils # (A) 0.4 k/uL (0-0.7); Eosinophils % (A) 3 %; HCT 29.9 % (39.0-53.0); HGB 8.7 gm/dL (13.0-17.5); Hypochromasia Marked; Lymphocytes # (A) 1.4 k/uL (1.0-4.8); Lymphocytes % (A) 9 %; MCH 25.9 pg (25.0-35.0); MCV 89.6 fL (80.0-100.0); Mean Platelet Volume 7.1; Monocytes % (A) 7 %; Neutrophils # (A) 11.9 k/uL (1.3-7.7); Neutrophils % (A) 78 %; Platelet Count 363 k/uL (150-450); RBC 3.34 m/uL (4.30-5.90); WBC 15.2 k/uL (3.8-10.6)
[2020-03-22 11:08] LABS: Calcium 9.1 mg/dL (8.4-10.2); Magnesium 1.7 mg/dL (1.6-2.3); Potassium 4.7 mmol/L (3.5-5.1)
[2020-03-22] MEDS: ACETAMINOPHEN TAB 325 MG TAB PO PRN (11:31)
[2020-03-22 11:39] VITALS: TEMP 98.4
[2020-03-22 11:54] LABS: Glucose,Whole Blood 196 mg/dL (75-99)
[2020-03-22 15:29] VITALS: BP 136/64; PULSE 81; RESP 16
[2020-03-22 18:03] LABS: Glucose,Whole Blood 197 mg/dL (75-99)
--- NOTE | 2020-03-22 22:06 | P.PN ---
Subjective Progress Note Date: 03/22/20 Principal diagnosis: Acute Renal Failure, Dialysis Planninig discharge today. Creatinine is improved today 3.72. Nephrology to follow at discharge if further dialysis is needed. Patient home with homecare and will need follow-up with Dr. Correa within 2 weeks to assess for timeframe for initiating treatment of cancer. Objective - Vital Signs Vital signs: Vital Signs Temp 98.4 F 03/22/20 11:35 Pulse 85 03/22/20 11:35 Resp 18 03/22/20 11:35 BP 140/66 03/22/20 11:35 Pulse Ox 98 03/22/20 11:35 Intake & Output 03/21/20 03/22/20 03/22/20 18:59 06:59 18:59 Intake Total 720 120 600 Output Total 900 1900 575 Balance -180 -1780 25 Weight 69 kg 66.3 kg Intake: Oral 720 120 600 Output: Drainage 900 1900 575 Left Lateral Back 325 700 225 Right Lateral Back 575 1200 350 Other: Voiding Method Toilet Toilet Toilet - Exam generalized weakness and fatigue - Constitutional General appearance: mild distress - EENT Eyes: EOMI, PERRLA ENT: normal oropharynx - Neck Neck: no lymphadenopathy Thyroid: bilateral: normal size - Respiratory Respiratory: bilateral: diminished (right greater than left) - Cardiovascular Rhythm: regular Heart sounds: normal: S1, S2 - Gastrointestinal General gastrointestinal: normal bowel sounds, soft - Integumentary Integumentary: normal Nephrostomy sites CDI - Neurologic Neurologic: CNII-XII intact - Musculoskeletal 2-3+ edema bilateral lower extremities Musculoskeletal: generalized weakness, strength equal bilaterally - Psychiatric Psychiatric: A&O x's 3, appropriate affect - Labs CBC & Chem 7: 03/22/20 10:37 03/22/20 10:37 Labs: Abnormal Lab Results - Last 24 Hours (Table) 03/21/20 03/21/20 03/22/20 Range/Units 17:01 20:36 06:15 WBC (3.8-10.6) k/uL RBC (4.30-5.90) m/uL Hgb (13.0-17.5) gm/dL Hct (39.0-53.0) % MCHC (31.0-37.0) g/dL RDW (11.5-15.5) % Neutrophils # (1.3-7.7) k/uL BUN (9-20) mg/dL Creatinine (0.66-1.25) mg/dL Glucose (74-99) mg/dL POC Glucose (mg/dL) 156 H 127 H 182 H (75-99) mg/dL 03/22/20 03/22/20 03/22/20 Range/Units 10:37 10:37 11:52 WBC 15.2 H (3.8-10.6) k/uL RBC 3.34 L (4.30-5.90) m/uL Hgb 8.7 L (13.0-17.5) gm/dL Hct 29.9 L (39.0-53.0) % MCHC 29.0 L (31.0-37.0) g/dL RDW 17.0 H (11.5-15.5) % Neutrophils # 11.9 H (1.3-7.7) k/uL BUN 44 H (9-20) mg/dL Creatinine 3.72 H (0.66-1.25) mg/dL Glucose 177 H (74-99) mg/dL POC Glucose (mg/dL) 196 H (75-99) mg/dL Assessment and Plan Plan: PET report reviewed and d/w pt Chest x-ray: report reviewed US - abdomen: report reviewed Assessment and Plan Acute renal failure - Nephrology management - Urgent Hemodialysis initiated this hospital stay, Creatinine is improving - Recent PET scan had shown bilateral hydronephrosis, Left>Right - Improved today 3.72, Nephrology keeley follow at discharge for need of HD Urothelial carcinoma of bladder - Locally advanced bladder cancer which was not surgically operable at initial presentation - During initial diagnostic work-up intra-abdominal abscess was found, therefore systemic chemotherapy on hold until resolution of this. He has not started systemic therapy for his cancer to date - Recent PET did not reveal any distant metastatic disease, although did reveal the newly developed complications which has preceded this hospital admission - With the picture of renal failure, the treatment options of systemic therapy do become more limited. Standard treatment for his diagnosis would usually contain a pit river based regimen, although contraindicated in patient with renal failure, unless he is deemed to receive chronic dialysis and in this case we could potentially move forward with a pit river based regimen in accordance with nephrology. Normocytic Anemia aplastic aregenerative -Repeat Hemoglobin today stable yesterday - Repeat today, if hemoglobin less than 7, transfuse during dialysis - Patients Ferritin was initially elevated, drawn possibly after transfusion Discharge plan today and will see Dr. correa 1-2 weeks to re-assess for initiation of systemic treatment of newly diagnosed cancer Patient will be home with homecare and will follow closely with nephrology as well. Creatinine remains stable today. Physcian Attest: I have completed the full history and physical and agree with above dictation by [employer], dictated as a scribe
--- NOTE | 2020-03-24 21:23 | P.DS ---
Providers Date of admission: 03/14/20 17:22 Expected date of discharge: 03/22/20 Attending physician: Alexander Carrillo Consults: 03/14/20 17:22 Consult Physician Urgent Consulting Provider: Jin Hernandez Consult Reason/Comments: Vascular access Do you want consulting provider notified?: Already Contacted Consult Physician Urgent Consulting Provider: Cheryl Zaragoza Consult Reason/Comments: Acute renal failure Do you want consulting provider notified?: Already Contacted 03/14/20 17:23 Consult Physician Routine Consulting Provider: Maciej Correa Consult Reason/Comments: Bilateral effusions, acute renal failure Do you want consulting provider notified?: Already Contacted 03/15/20 11:37 Consult Physician Routine Consulting Provider: Blane Whitehead Consult Reason/Comments: bladder cancer/JUDD Do you want consulting provider notified?: Yes 03/22/20 11:55 Consult Physician Routine Consulting Provider: Jin Hernandez Consult Reason/Comments: dc hemodialysis port Do you want consulting provider notified?: Yes Primary care physician: Pola Rodriguez [facility] Course: Chief Complaint: Abnormal labs History of presenting complaint: This is a 79-year-old patient of Dr. Pola Rodriguez. Chronic stable medical conditions include diabetes,, coronary artery disease with stent, hypertension, kidney stones , bowel and bladder cancer. On December 07 patient had a cystoscopy that showed severe hemorrhagic cystitis. He's had prior back surgery . Patient was referred to [facility] where he was found to have significant bladder cancer with local metastasis. Surgery was not done. Patient has resultant hydronephrosis. Also recently treated for a diverticular abscess and had a drain placed. Treated with IV antibiotics with resolution of the abscess. Also recent admission to the hospital with GI bleed showed duodenal bulb ulcer and gastritis. Patient presented to his oncologist. Has been getting more short of breath. Decreased appetite, chills. Decreased urine output. Some lower extremity swelling. Worsening of his creatinine. Dr. Hernandez from vascular surgery at placed a dialysis catheter yesterday evening. Does feel tired rundown. Slight cough. Admitted with acute obstructive uropathy renal failure. Dialysis catheter placed. Hemodialysis started.intervention radiology had bilateral nephrostomy tube placed Today- creatinine continues to come down.. From 8.2 down to 3.72. Making good urine through the nephrostomy tubes. Eating well. Able to go to the bathroom. Overall doing better. Discussed with Dr. Hopkins from nephrology. Cleared for DC. Oncology we'll follow as an outpatient. Care was discussed with the patient. Questions answered. Case management involved. Overall prognosis guarded. Dr. Hernandez been contacted for the right groin dialysis catheter to be removed before discharge. Discussion and discharge planning more than 35 minutes Consultation: Dr. Correa from oncology Dr. Ham from urology Interventional radiology for placement of nephrostomy tube Dr. Hernandez from vascular surgery Nephrology Physical examination: VITAL SIGNS: 98.4, 85, 18, 140/66, 98% room air GENERAL: Sitting up comfortable EYES: Pupils equal. Conjunctiva pale. NECK: JVD unable to assess; masses not palpable. HEART: First and second heart sounds are normal; no edema. LUNGS: Respiratory rate increased; decreased breath sounds. ABDOMEN: Soft, nontender, liver spleen not palpable, no masses palpable. Bilateral nephrostomy tubes with draining bags PSYCH: Alert and oriented x3; mood and affect anxious. 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 Started on renal replacement therapy. 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 Recent PET scan did not show any distant metastatic disease.-Follow up with oncology Disposition: Home Labs: BMP-3-5 days Patient Condition at Discharge: Stable Plan - Discharge Summary Discharge Rx Participant: No New Discharge Prescriptions: New Acetaminophen Tab [Tylenol] 650 mg PO Q6HR PRN tab PRN Reason: Fever And/ Or Pain Continue Cyanocobalamin [Vitamin B-12] 500 mcg PO DAILY@0900 Cholecalciferol [Vitamin D3 (25 Mcg = 1000 Iu)] 1,000 unit PO DAILY@0900 Ascorbic Acid [Vitamin C] 500 mg PO DAILY@0900 Levothyroxine Sodium [Synthroid] 50 mcg PO DAILY@0600 Pantoprazole [Protonix] 40 mg PO AC-BID #60 tablet. Discontinued Losartan Potassium 50 mg PO DAILY@0900 Insulin Aspart [NovoLOG] See Protocol SQ AC-TID Discharge Medication List Ascorbic Acid [Vitamin C] 500 mg PO DAILY@0900 03/31/18 [History] Cholecalciferol [Vitamin D3 (25 Mcg = 1000 Iu)] 1,000 unit PO DAILY@0900 03/31/18 [History] Cyanocobalamin [Vitamin B-12] 500 mcg PO DAILY@0900 03/31/18 [History] Levothyroxine Sodium [Synthroid] 50 mcg PO DAILY@0600 10/10/19 [History] Pantoprazole [Protonix] 40 mg PO AC-BID #60 tablet. 02/03/20 [Rx] Acetaminophen Tab [Tylenol] 650 mg PO Q6HR PRN tab 03/22/20 [Rx] Follow up Appointment(s)/Referral(s): Maciej Correa MD [STAFF PHYSICIAN] - 1 Week (Office is closed at time of discharge. Please notify office that the appointment is following a hospital admission.) Cheryl Zaragoza MD [STAFF PHYSICIAN] - 03/15/21 1:00 pm () [facility], [NON-STAFF] - 1 Week (Please call when the patient arrives home.) Pola Rodriguez MD [Primary Care Provider] - 03/25/20 1:30 pm Patient Instructions/Handouts: Acute Kidney Injury (DC), Dialysis Diet (DC), Nephrostomy Tube Care (DC) Activity/Diet/Wound Care/Special Instructions: bmp - 4 days Discharge Disposition: HOME SELF-CARE
== END 2020-03-22 18:30 | disposition home health service (06) | DRG 682 ==
LOC: EC 15:38 → 3SCARD 17:22
PROVIDERS: ADMIT Hospitalist; ATTEND Hospitalist
PROC: 0T9430Z Drainage of Left Kidney Pelvis with Drainage Device, Percutaneous Approach (ICD-10-PCS; principal; 2020-03-14)
PROC: 0T9330Z Drainage of Right Kidney Pelvis with Drainage Device, Percutaneous Approach (ICD-10-PCS; 2020-03-14)
PROC: 06HY33Z Insertion of Infusion Device into Lower Vein, Percutaneous Approach (ICD-10-PCS; 2020-03-14)
PROC: 5A1D70Z Performance of Urinary Filtration, Intermittent, Less than 6 Hours Per Day (ICD-10-PCS; 2020-03-15)
DX: N17.9 Acute kidney failure, unspecified (principal); D61.89 Other specified aplastic anemias and other bone marrow failure syndromes; E87.2 Acidosis; J90 Pleural effusion, not elsewhere classified; C78.5 Secondary malignant neoplasm of large intestine and rectum; C67.9 Malignant neoplasm of bladder, unspecified; E11.22 Type 2 diabetes mellitus with diabetic chronic kidney disease; Z99.2 Dependence on renal dialysis; Z79.4 Long term (current) use of insulin; N18.30 Chronic kidney disease, stage 3 unspecified; I12.9 Hypertensive chronic kidney disease with stage 1 through stage 4 chronic kidney disease, or unspecified chronic kidney disease; N13.1 Hydronephrosis with ureteral stricture, not elsewhere classified; N20.0 Calculus of kidney; E87.5 Hyperkalemia; E61.1 Iron deficiency; E87.70 Fluid overload, unspecified; K26.7 Chronic duodenal ulcer without hemorrhage or perforation; K29.50 Unspecified chronic gastritis without bleeding; G89.29 Other chronic pain; M54.9 Dorsalgia, unspecified; I45.10 Unspecified right bundle-branch block; I25.10 Atherosclerotic heart disease of native coronary artery without angina pectoris; E03.9 Hypothyroidism, unspecified; M19.042 Primary osteoarthritis, left hand; M19.041 Primary osteoarthritis, right hand; Z79.890 Hormone replacement therapy; Z79.899 Other long term (current) drug therapy; Z95.5 Presence of coronary angioplasty implant and graft; Z87.442 Personal history of urinary calculi; Z87.891 Personal history of nicotine dependence; Z88.5 Allergy status to narcotic agent; Z88.1 Allergy status to other antibiotic agents; Z91.041 Radiographic dye allergy status
CPT/HCPCS: 36415; 36556; 50432; 71046; 76770; 76942; 80048; 80053; 80074; 83036; 83540; 83550; 83605; 83735; 83880; 84100; 84484; 85025; 85610; 85730; 86704; 86705; 86706; 86707; 87340; 87350; 90935; 93005; 94760; 96365; 96375; 99291

== ENCOUNTER 2020-04-05 17:15 | Inpatient (IN) | payer MEDICARE ==
[2020-04-05] MEDS ORDERED: SODIUM CHLORIDE 0.9% 1,000 ML IV STA ×2 (18:32)
[2020-04-05] MEDS ORDERED: SODIUM CHLORIDE 0.9% 500 ML 500 ML IV STA (18:32)
--- NOTE | 2020-04-05 18:54 | ED ---
Weakness HPI - General Chief complaint: Dizziness Stated complaint: Cancer pt - Low BP, High HR Time Seen by Provider: 04/05/20 18:12 Source: patient, family, RN notes reviewed, old records reviewed Mode of arrival: wheelchair Limitations: no limitations - History of Present Illness Initial comments: this is an 79-year-old male DF for evaluation significant weakness dehydration not feeling well. Patient is complicated medical history of bladder cancer colon cancer. Patient severely weak does not feel himself has chills shakes. Denying fever. History of similar history of multiple urinary tract infections persistent urinary tract infections MD Complaint: generalized weakness, lack of energy, difficulty walking Location: generalized Severity: moderate Severity scale (1-10): 4 Consistency: constant Improves with: none Worsens with: none Context: recent illness, history of similar Associated Symptoms: denies other symptoms - Related Data Home Medications Medication Instructions Recorded Confirmed Ascorbic Acid [Vitamin C] 500 mg PO DAILY 03/31/18 04/05/20 Cholecalciferol [Vitamin D3 (25 1,000 unit PO DAILY 03/31/18 04/05/20 Mcg = 1000 Iu)] Cyanocobalamin [Vitamin B-12] 500 mcg PO DAILY 03/31/18 04/05/20 Levothyroxine Sodium [Synthroid] 50 mcg PO AC-BRKFST 10/10/19 04/05/20 Acetaminophen Tab [Tylenol Tab] 1,000 mg PO Q6H PRN 04/05/20 04/05/20 HYDROcodone/APAP 5-325MG [[place] 1 tab PO TID PRN 04/05/20 04/05/20 5-325] Iron 27mg 27 mg PO DAILY 04/05/20 04/05/20 Pantoprazole Sodium [Protonix] 20 mg PO DAILY 04/05/20 04/05/20 Sertraline [Zoloft] 25 mg PO DAILY 04/05/20 04/05/20 Allergies Allergy/AdvReac Type Severity Reaction Status Date / Time ciprofloxacin [From Cipro] Allergy Swelling Verified 04/05/20 20:43 propoxyphene [From Darvon] Allergy Hallucinati Verified 04/05/20 20:43 ons Iodinated Contrast Media AdvReac Dyspnea Verified 04/05/20 20:43 [Iodinated Contrast- Oral and IV Dye] Review of Systems ROS Statement: Those systems with pertinent positive or pertinent negative responses have been documented in the HPI. ROS Other: All systems not noted in ROS Statement are negative. Past Medical History Past Medical History: Cancer, Chest Pain / Angina, Diabetes Mellitus, Hypertension Additional Past Medical History / Comment(s): shortness of breath, bowel and bladder ca History of Any Multi-Drug Resistant Organisms: None Reported Past Surgical History: Back Surgery Additional Past Surgical History / Comment(s): hand surgery. back surgery with 4 screws and 2 rods currently had surgery for cancer on bladder on on the outside of his colon, has drain to LLQ abdomen Past Anesthesia/Blood Transfusion Reactions: No Reported Reaction Additional Past Anesthesia/Blood Transfusion Reaction / Comment(s): son allergic to one type of anesthesia Past Psychological History: No Psychological Hx Reported Smoking Status: Former smoker Past Alcohol Use History: None Reported Past Drug Use History: None Reported - Past Family History Mother Family Medical History: Unable to Obtain Additional Family Medical History / Comment(s): adopted General Exam Limitations: no limitations General appearance: alert, in no apparent distress Head exam: Present: atraumatic, normocephalic, normal inspection Eye exam: Present: normal appearance, PERRL, EOMI. Absent: scleral icterus, conjunctival injection, periorbital swelling ENT exam: Present: normal exam, mucous membranes moist Neck exam: Present: normal inspection. Absent: tenderness, meningismus, lymphadenopathy Respiratory exam: Present: normal lung sounds bilaterally. Absent: respiratory distress, wheezes, rales, rhonchi, stridor Cardiovascular Exam: Present: regular rate, normal rhythm, normal heart sounds. Absent: systolic murmur, diastolic murmur, rubs, gallop, clicks GI/Abdominal exam: Present: soft, normal bowel sounds. Absent: distended, tenderness, guarding, rebound, rigid Extremities exam: Present: normal inspection, full ROM, normal capillary refill. Absent: tenderness, pedal edema, joint swelling, calf tenderness Back exam: Present: normal inspection Neurological exam: Present: alert, oriented X3, CN II-XII intact Psychiatric exam: Present: normal affect, normal mood Skin exam: Present: warm, dry, intact, normal color. Absent: rash Course Vital Signs 04/05/20 04/05/20 04/05/20 17:32 19:06 20:00 Temperature 98.3 F 97.7 F Pulse Rate 95 77 80 Respiratory 20 14 18 Rate Blood Pressure 89/50 99/56 115/51 O2 Sat by Pulse 99 100 97 Oximetry - Reevaluation(s) Reevaluation #1: 04/05/20 21:09 medical record is reviewed Reevaluation #2: 04/05/20 21:09 patient placed on hydration therapy EKG Findings - EKG Comments: EKG Findings:: EKG is sinus rhythm 78, [place] 162 QRS 128 QTc 465 Medical Decision Making - Medical Decision Making 79 male DF for evaluation severe dehydration recurrent urinary tract infection, patient be admitted and treated appropriately - Lab Data Result diagrams: 04/05/20 18:41 04/05/20 18:41 Lab Results 04/05/20 04/05/20 04/05/20 Range/Units 18:41 18:41 18:41 WBC 17.8 H (3.8-10.6) k/uL RBC 3.32 L (4.30-5.90) m/uL Hgb 8.4 L (13.0-17.5) gm/dL Hct 27.4 L (39.0-53.0) % MCV 82.4 D (80.0-100.0) fL MCH 25.3 (25.0-35.0) pg MCHC 30.6 L (31.0-37.0) g/dL RDW 16.1 H (11.5-15.5) % Plt Count 409 (150-450) k/uL Neutrophils % 82 % Lymphocytes % 8 % Monocytes % 7 % Eosinophils % 0 % Basophils % 1 % Neutrophils # 14.6 H (1.3-7.7) k/uL Lymphocytes # 1.4 (1.0-4.8) k/uL Monocytes # 1.2 H (0-1.0) k/uL Eosinophils # 0.1 (0-0.7) k/uL Basophils # 0.1 (0-0.2) k/uL Hypochromasia Moderate Anisocytosis Slight PT 10.8 (9.0-12.0) sec INR 1.1 (<1.2) APTT 27.2 (22.0-30.0) sec Sodium (137-145) mmol/L Potassium (3.5-5.1) mmol/L Chloride (98-107) mmol/L Carbon Dioxide (22-30) mmol/L Anion Gap mmol/L BUN (9-20) mg/dL Creatinine (0.66-1.25) mg/dL Est GFR (CKD-EPI)AfAm (>60 ml/min/1.73 sqM) Est GFR (CKD-EPI)NonAf (>60 ml/min/1.73 sqM) Glucose (74-99) mg/dL Plasma Lactic Acid Alex (0.7-2.0) mmol/L Calcium (8.4-10.2) mg/dL Phosphorus (2.5-4.5) mg/dL Magnesium (1.6-2.3) mg/dL Total Bilirubin (0.2-1.3) mg/dL AST (17-59) U/L ALT (4-49) U/L Alkaline Phosphatase (38-126) U/L Creatine Kinase (55-170) U/L Troponin I (0.000-0.034) ng/mL NT-Pro-B Natriuret Pep pg/mL Total Protein (6.3-8.2) g/dL Albumin (3.5-5.0) g/dL Urine Color Light Yellow Urine Appearance Turbid (Clear) Urine pH 7.0 (5.0-8.0) Ur Specific [place] 1.013 (1.001-1.035) Urine Protein 2+ H (Negative) Urine Glucose (UA) 1+ H (Negative) Urine Ketones Negative (Negative) Urine Blood Small H (Negative) Urine Nitrite Negative (Negative) Urine Bilirubin Negative (Negative) Urine Urobilinogen <2.0 (<2.0) mg/dL Ur Leukocyte Esterase Large H (Negative) Urine RBC 18 H (0-5) /hpf Urine WBC >182 H (0-5) /hpf Urine WBC Clumps Many H (None) /hpf Amorphous Sediment Occasional H (None) /hpf Hyaline Casts 29 H (0-2) /lpf Urine Mucus Rare H (None) /hpf 04/05/20 04/05/20 04/05/20 Range/Units 18:41 18:41 18:41 WBC (3.8-10.6) k/uL RBC (4.30-5.90) m/uL Hgb (13.0-17.5) gm/dL Hct (39.0-53.0) % MCV (80.0-100.0) fL MCH (25.0-35.0) pg MCHC (31.0-37.0) g/dL RDW (11.5-15.5) % Plt Count (150-450) k/uL Neutrophils % % Lymphocytes % % Monocytes % % Eosinophils % % Basophils % % Neutrophils # (1.3-7.7) k/uL Lymphocytes # (1.0-4.8) k/uL Monocytes # (0-1.0) k/uL Eosinophils # (0-0.7) k/uL Basophils # (0-0.2) k/uL Hypochromasia Anisocytosis PT (9.0-12.0) sec INR (<1.2) APTT (22.0-30.0) sec Sodium 133 L (137-145) mmol/L Potassium 4.9 (3.5-5.1) mmol/L Chloride 99 (98-107) mmol/L Carbon Dioxide 25 (22-30) mmol/L Anion Gap 9 mmol/L BUN 35 H (9-20) mg/dL Creatinine 2.38 H (0.66-1.25) mg/dL Est GFR (CKD-EPI)AfAm 29 (>60 ml/min/1.73 sqM) Est GFR (CKD-EPI)NonAf 25 (>60 ml/min/1.73 sqM) Glucose 173 H (74-99) mg/dL Plasma Lactic Acid Alex 1.4 (0.7-2.0) mmol/L Calcium 9.6 (8.4-10.2) mg/dL Phosphorus 3.8 (2.5-4.5) mg/dL Magnesium 2.0 (1.6-2.3) mg/dL Total Bilirubin 0.4 (0.2-1.3) mg/dL AST 19 (17-59) U/L ALT 13 (4-49) U/L Alkaline Phosphatase 134 H (38-126) U/L Creatine Kinase 23 L (55-170) U/L Troponin I 0.019 (0.000-0.034) ng/mL NT-Pro-B Natriuret Pep pg/mL Total Protein 6.8 (6.3-8.2) g/dL Albumin 3.5 (3.5-5.0) g/dL Urine Color Urine Appearance (Clear) Urine pH (5.0-8.0) Ur Specific [place] (1.001-1.035) Urine Protein (Negative) Urine Glucose (UA) (Negative) Urine Ketones (Negative) Urine Blood (Negative) Urine Nitrite (Negative) Urine Bilirubin (Negative) Urine Urobilinogen (<2.0) mg/dL Ur Leukocyte Esterase (Negative) Urine RBC (0-5) /hpf Urine WBC (0-5) /hpf Urine WBC Clumps (None) /hpf Amorphous Sediment (None) /hpf Hyaline Casts (0-2) /lpf Urine Mucus (None) /hpf 04/05/20 Range/Units 18:41 WBC (3.8-10.6) k/uL RBC (4.30-5.90) m/uL Hgb (13.0-17.5) gm/dL Hct (39.0-53.0) % MCV (80.0-100.0) fL MCH (25.0-35.0) pg MCHC (31.0-37.0) g/dL RDW (11.5-15.5) % Plt Count (150-450) k/uL Neutrophils % % Lymphocytes % % Monocytes % % Eosinophils % % Basophils % % Neutrophils # (1.3-7.7) k/uL Lymphocytes # (1.0-4.8) k/uL Monocytes # (0-1.0) k/uL Eosinophils # (0-0.7) k/uL Basophils # (0-0.2) k/uL Hypochromasia Anisocytosis PT (9.0-12.0) sec INR (<1.2) APTT (22.0-30.0) sec Sodium (137-145) mmol/L Potassium (3.5-5.1) mmol/L Chloride (98-107) mmol/L Carbon Dioxide (22-30) mmol/L Anion Gap mmol/L BUN (9-20) mg/dL Creatinine (0.66-1.25) mg/dL Est GFR (CKD-EPI)AfAm (>60 ml/min/1.73 sqM) Est GFR (CKD-EPI)NonAf (>60 ml/min/1.73 sqM) Glucose (74-99) mg/dL Plasma Lactic Acid Alex (0.7-2.0) mmol/L Calcium (8.4-10.2) mg/dL Phosphorus (2.5-4.5) mg/dL Magnesium (1.6-2.3) mg/dL Total Bilirubin (0.2-1.3) mg/dL AST (17-59) U/L ALT (4-49) U/L Alkaline Phosphatase (38-126) U/L Creatine Kinase (55-170) U/L Troponin I (0.000-0.034) ng/mL NT-Pro-B Natriuret Pep 38400 pg/mL Total Protein (6.3-8.2) g/dL Albumin (3.5-5.0) g/dL Urine Color Urine Appearance (Clear) Urine pH (5.0-8.0) Ur Specific [place] (1.001-1.035) Urine Protein (Negative) Urine Glucose (UA) (Negative) Urine Ketones (Negative) Urine Blood (Negative) Urine Nitrite (Negative) Urine Bilirubin (Negative) Urine Urobilinogen (<2.0) mg/dL Ur Leukocyte Esterase (Negative) Urine RBC (0-5) /hpf Urine WBC (0-5) /hpf Urine WBC Clumps (None) /hpf Amorphous Sediment (None) /hpf Hyaline Casts (0-2) /lpf Urine Mucus (None) /hpf Disposition Clinical Impression: Dehydration, UTI (urinary tract infection), Urothelial carcinoma of bladder, CKD (chronic kidney disease) Disposition: ADMITTED IP TO THIS HOSP Condition: Fair Is patient prescribed a controlled substance at d/c from ED?: No
[2020-04-05 18:55] LABS: Anisocytosis Slight; Basophils # (A) 0.1 k/uL (0-0.2); Basophils % (A) 1 %; Eosinophils # (A) 0.1 k/uL (0-0.7); Eosinophils % (A) 0 %; HCT 27.4 % (39.0-53.0); HGB 8.4 gm/dL (13.0-17.5); Hypochromasia Moderate; Lymphocytes # (A) 1.4 k/uL (1.0-4.8); Lymphocytes % (A) 8 %; MCH 25.3 pg (25.0-35.0); MCHC 30.6 g/dL (31.0-37.0); Mean Platelet Volume 7.2; Monocytes # (A) 1.2 k/uL (0-1.0); Monocytes % (A) 7 %; Neutrophils # (A) 14.6 k/uL (1.3-7.7); Neutrophils % (A) 82 %; Platelet Count 409 k/uL (150-450); RBC 3.32 m/uL (4.30-5.90); RDW 16.1 % (11.5-15.5); WBC 17.8 k/uL (3.8-10.6)
[2020-04-05 18:59] LABS: MCV 82.4 fL (80.0-100.0)
[2020-04-05 19:02] LABS: Amorphous Sediment,Urine Occasional /hpf; Appearance,Urine Turbid (Clear); Bilirubin,Urine Negative (Negative); Blood,Urine Small (Negative); Color,Urine Light Yellow; Glucose,Urine (UA) 1+ (Negative); Hyaline Casts,Urine 29 /lpf (0-2); Ketones,Urine Negative (Negative); Leukocyte Esterase,Urine Large (Negative); Mucus,Urine Rare /hpf; Nitrite,Urine Negative (Negative); Protein,Urine 2+ (Negative); RBC,Urine 18 /hpf (0-5); Specific Gravity,Urine 1.013 (1.001-1.035); Urobilinogen,Urine <2.0 mg/dL (<2.0); WBC,Urine >182 /hpf (0-5)
[2020-04-05 19:06] LABS: INR 1.1 (<1.2); Partial Thromboplastin Time 27.2 sec (22.0-30.0); Prothrombin Time 10.8 sec (9.0-12.0)
[2020-04-05 19:09] LABS: Albumin 3.5 g/dL (3.5-5.0); Calcium 9.6 mg/dL (8.4-10.2); Phosphorus 3.8 mg/dL (2.5-4.5); Potassium 4.9 mmol/L (3.5-5.1); Total Bilirubin 0.4 mg/dL (0.2-1.3); Total Protein 6.8 g/dL (6.3-8.2)
[2020-04-05] MEDS ORDERED: AMPICILLIN-SULBACTAM 3 GM in SODIUM CHLORIDE 0.9% 100 ML IVPB STA (19:34)
[2020-04-05] MEDS ORDERED: ONDANSETRON 4 MG/2 ML VIAL IVP PRN (19:38)
[2020-04-05] MEDS ORDERED: NALOXONE 0.4 MG/ML 1 ML VIAL IV PRN (19:38)
[2020-04-05] MEDS ORDERED: SODIUM CHLORIDE 0.9% 1,000 ML IV SCH (19:45)
[2020-04-05] MEDS ORDERED: SODIUM CHLORIDE 3%(HYPERTONIC) 500 ML IV SCH (19:45)
--- NOTE | 2020-04-05 19:59 | XR ---
EXAMINATION TYPE: XR abdomen acute w cxr DATE OF EXAM: 04/05/2020 COMPARISON: 01/16/2020 HISTORY: Abdominal pain. Weakness. TECHNIQUE: 4 views FINDINGS: There is some blunting of right costophrenic angle. Heart size is normal. The lungs are humble ar of consolidation. There is no heart failure. There are bilateral pigtail nephrostomy tubes. There is no sign of intestinal obstruction or pneumope ritoneum. Fecal pattern is normal. There is 4 mm calculus over the upper pole left kidney. There is p osterior fusion surgery at L4-5. Bowel gas pattern is normal. IMPRESSION: There is small right pleural effusion. No sign of acute abdomen and pelvis. There is erasmo ring of the small bowel ileus to a large extent compared to old exam.
[2020-04-05] MEDS ORDERED: HYDROmorphone 1 MG/ML 1 ML SYRINGE IVP STA (20:04)
[2020-04-06] MEDS: HYDROmorphone 1 MG/ML 1 ML SYRINGE IVP PRN ×3 (00:03→07:57)
--- NOTE | 2020-04-06 01:44 | P.HPIM ---
History of Present Illness H&P Date: 04/06/20 The patient is an 79-year-old male with a PMH of bladder cancer (diagnosed October 2019 -- with local infiltration to surrounding organs -- inoperable), chronic kidney disease with bilateral nephrostomy tube placement, and multiple bouts of urinary tract infection presents to the emergency room with complaints of not feeling well. Patient notes that since his diagnosis, he continues to have chronic lower back and suprapubic abdominal pain which is somewhat controlled with [place] at home. He also reports anorexia with nausea and vomiting and a 40 pound weight loss due to poor oral intake. The patient reports his pain at 8 out of 10 chronically which is improved to a 2 out of 10 with medications. At time of interview, the patient denied active pain. He also denied dysuria, fever, or chills. Reports emptying his nephrostomy bags daily. Denied chest pain, shortness of breath, or diarrhea. Abdominal x-ray in the emergency room was unremarkable. EKG revealed normal sinus rhythm at 78 bpm with a right bundle branch block. Laboratory evaluation was reviewed with WBC count 17.8, hemoglobin 8.4, BUN 35, creatinine 2.38, and a UA consistent with UTI. Review of Systems Pertinent positives and negatives as discussed in HPI, a complete review of systems was performed and all other systems are negative. Past Medical History Past Medical History: Cancer, Chest Pain / Angina, Diabetes Mellitus, Hypertension Additional Past Medical History / Comment(s): shortness of breath, bowel and bladder ca History of Any Multi-Drug Resistant Organisms: None Reported Past Surgical History: Back Surgery Additional Past Surgical History / Comment(s): hand surgery. back surgery with 4 screws and 2 rods currently had surgery for cancer on bladder on on the outside of his colon, has drain to LLQ abdomen Past Anesthesia/Blood Transfusion Reactions: No Reported Reaction Additional Past Anesthesia/Blood Transfusion Reaction / Comment(s): son allergic to one type of anesthesia Past Psychological History: No Psychological Hx Reported Smoking Status: Former smoker Past Alcohol Use History: None Reported Past Drug Use History: None Reported - Past Family History Mother Family Medical History: Unable to Obtain Additional Family Medical History / Comment(s): adopted Medications and Allergies Home Medications Medication Instructions Recorded Confirmed Type Ascorbic Acid [Vitamin C] 500 mg PO DAILY 03/31/18 04/05/20 History Cholecalciferol [Vitamin D3 (25 1,000 unit PO DAILY 03/31/18 04/05/20 History Mcg = 1000 Iu)] Cyanocobalamin [Vitamin B-12] 500 mcg PO DAILY 03/31/18 04/05/20 History Levothyroxine Sodium [Synthroid] 50 mcg PO AC-BRKFST 10/10/19 04/05/20 History Acetaminophen Tab [Tylenol Tab] 1,000 mg PO Q6H PRN 04/05/20 04/05/20 History HYDROcodone/APAP 5-325MG [[place] 1 tab PO TID PRN 04/05/20 04/05/20 History 5-325] Iron 27mg 27 mg PO DAILY 04/05/20 04/05/20 History Pantoprazole Sodium [Protonix] 20 mg PO DAILY 04/05/20 04/05/20 History Sertraline [Zoloft] 25 mg PO DAILY 04/05/20 04/05/20 History Allergies Allergy/AdvReac Type Severity Reaction Status Date / Time ciprofloxacin [From Cipro] Allergy Swelling Verified 04/05/20 20:43 propoxyphene [From Darvon] Allergy Hallucinati Verified 04/05/20 20:43 ons Iodinated Contrast Media AdvReac Dyspnea Verified 04/05/20 20:43 [Iodinated Contrast- Oral and IV Dye] Physical Exam Vitals: Vital Signs Temp Pulse Resp BP Pulse Ox 04/05/20 22:11 97.9 F 83 18 110/95 99 04/05/20 21:00 85 18 115/87 99 04/05/20 20:00 80 18 115/51 97 04/05/20 19:06 97.7 F 77 14 99/56 100 04/05/20 17:32 98.3 F 95 20 89/50 99 Intake and Output 04/05/20 04/05/20 04/05/20 06:59 14:59 22:59 Other: Weight 63.503 kg General: Somewhat chronically ill-appearing male, no distress, appears at stated age, normal weight Derm: no unusual rashes/lesions no unusual ecchymoses, warm, dry Head: atraumatic, normocephalic, symmetric Eyes: EOMI, no lid lag, anicteric sclera, pupils equal round reactive to light ENT: Nose and ears atraumatic, no thrush, no pharyngeal erythema Neck: No thyromegaly, no cervical lymphadenopathy, trachea midline, supple Mouth: no lip lesion, mucus membranes moist Cardiovascular: S1S2 reg, no murmur, positive posterior tibial pulse bilateral, no edema, capillary refill less than 2 seconds Lungs: CTA bilateral, no rhonchi, no rales , no accessory muscle use Abdominal: soft, suprapubic tenderness to palpation, no guarding, no appreciable organomegaly, normal bowel sounds, bilateral nephrostomy tubes in place with overlying dressings with urine present in bags Ext: no gross muscle atrophy, muscle strength 3+ out of 5 in all 4 extremities grossly, no contractures, Neuro: CN II-XI grossly intact, light touch intact all 4 extremities, finger to nose within normal limits, Psych: Alert, oriented, appropriate affect Results CBC & Chem 7: 04/05/20 18:41 04/05/20 18:41 Labs: Abnormal Lab Results - Last 24 Hours (Table) 04/05/20 04/05/20 04/05/20 Range/Units 18:41 18:41 18:41 WBC 17.8 H (3.8-10.6) k/uL RBC 3.32 L (4.30-5.90) m/uL Hgb 8.4 L (13.0-17.5) gm/dL Hct 27.4 L (39.0-53.0) % MCHC 30.6 L (31.0-37.0) g/dL RDW 16.1 H (11.5-15.5) % Neutrophils # 14.6 H (1.3-7.7) k/uL Monocytes # 1.2 H (0-1.0) k/uL Sodium 133 L (137-145) mmol/L BUN 35 H (9-20) mg/dL Creatinine 2.38 H (0.66-1.25) mg/dL Glucose 173 H (74-99) mg/dL Alkaline Phosphatase 134 H (38-126) U/L Creatine Kinase 23 L (55-170) U/L Urine Protein 2+ H (Negative) Urine Glucose (UA) 1+ H (Negative) Urine Blood Small H (Negative) Ur Leukocyte Esterase Large H (Negative) Urine RBC 18 H (0-5) /hpf Urine WBC >182 H (0-5) /hpf Urine WBC Clumps Many H (None) /hpf Amorphous Sediment Occasional H (None) /hpf Hyaline Casts 29 H (0-2) /lpf Urine Mucus Rare H (None) /hpf Assessment and Plan Plan: UTI in setting of bladder malignancy and huong nephrostomy tubes -C/w Unasyn -Gentle IV hydration -Follow up urine and blood cultures Inoperable bladder cancer, following with Dr. Correa -Oncology consult for goals of care planning Leukocytosis, at baseline -Likely secondary to ongoing malignancy along with UTI Chronic kidney disease, improved from baseline -Continue to monitor DVT prophylaxis -Lovenox The patient is admitted with an anticipated greater than 2 midnight stay for evaluation of UTI CODE STATUS: No Code Discussed with: Patient, [id number] Anticipated discharge date: 2-[address]: Home A total of 40 minutes was spent on the care of this complex patient more than 50% of the time was spent in counseling and care coordination.
--- NOTE | 2020-04-06 01:47 | P.PN ---
Progress Note - Text Progress Note Date: 04/06/20 Advanced Care Planning Active Diagnosis: Inoperable bladder cancer Persons present: Patient, [id number] Summary: Discussed the patient's goals of care in great detail. Discussed the inoperable locally aggressive bladder malignancy. The patient notes that he is "tired of constantly coming to the hospital" and that his quality of life is "terrible". Discussed resuscitation and if performed or life-support. The patient noted that in light of his ongoing malignancy, that he would not wish to undergo CPR or be placed on life support. The patient notes that he may conside r certain forms of life support on an elective basis. The patient does wish to discuss further treatment options with his oncologist and did not appear to be open to a hospice discussion at this time despite a likely very poor prognosis. Will make the patient No Code as per his wishes. Time spent: Total time spent face to face in education and discussion directly related to advanced care plannin minutes
[2020-04-06] MEDS: ENOXAPARIN 40 MG/0.4 ML SYRINGE SQ SCH (07:55)
[2020-04-06] MEDS: LEVOTHYROXINE 50 MCG TAB PO SCH (07:55)
[2020-04-06] MEDS: AMPICILLIN-SULBACTAM 3 GM in SODIUM CHLORIDE 0.9% 100 ML IVPB SCH ×2 (08:41→20:51)
[2020-04-06] MEDS ORDERED: PANTOPRAZOLE 40 MG/10 ML VIAL IV SCH (09:00)
[2020-04-06 09:56] LABS: Anisocytosis Slight; Basophils # (A) 0.1 k/uL (0-0.2); Basophils % (A) 0 %; Eosinophils # (A) 0.1 k/uL (0-0.7); Eosinophils % (A) 1 %; HCT 26.7 % (39.0-53.0); Hypochromasia Marked; Lymphocytes # (A) 0.8 k/uL (1.0-4.8); Lymphocytes % (A) 6 %; MCH 25.7 pg (25.0-35.0); MCHC 30.1 g/dL (31.0-37.0); MCV 85.3 fL (80.0-100.0); Mean Platelet Volume 7.2; Monocytes % (A) 7 %; Neutrophils # (A) 11.7 k/uL (1.3-7.7); Neutrophils % (A) 83 %; Platelet Count 358 k/uL (150-450); RBC 3.13 m/uL (4.30-5.90); RDW 16.2 % (11.5-15.5); WBC 14.1 k/uL (3.8-10.6)
[2020-04-06 10:16] VITALS: BMI 21.9
[2020-04-06] MEDS ORDERED: HYDROcodone/APAP 5-325MG 1 EACH TAB PO PRN (10:46)
[2020-04-06] MEDS ORDERED: IRON 27 MG PO SCH (11:00)
[2020-04-06 11:24] LABS: African American GFR (CKD) 33.2 (60.0-200.0); Albumin 3.4 g/dL (3.80-4.90); Albumin/Globulin Ratio 1.42 (1.60-3.17); Anion Gap 9.4 mmol/L (4.00-12.00); BUN/Creat Ratio 14.76 Ratio (12.00-20.00); Calcium 8.6 mg/dL (8.7-10.3); Carbon Dioxide 23.6 mmol/L (21.6-31.8); Globulin 2.4 g/dL (1.6-3.3); Non-African American GFR(CKD) 28.7 (60.0-200.0); Phosphorus 3.8 mg/dL (2.4-5.1); Potassium 4.7 mmol/L (3.5-5.5); Total Bilirubin 0.2 mg/dL (0.2-1.2); Total Protein 5.8 g/dL (6.2-8.2)
[2020-04-06 11:25] LABS: Magnesium 1.8 mg/dL (1.5-2.4)
[2020-04-06] MEDS: ASCORBIC ACID 500 MG TAB PO SCH (12:13)
[2020-04-06] MEDS: SERTRALINE 25 MG TAB PO SCH (12:13)
[2020-04-06] MEDS: CYANOCOBALAMIN 500 MCG TAB PO SCH (12:13)
[2020-04-06] MEDS: CHOLECALCIFEROL 1,000 UNIT TAB PO SCH (12:13)
--- NOTE | 2020-04-06 15:33 | P.PN ---
Subjective Progress Note Date: 04/06/20 Patient is feeling very weak and fatigued this morning. He said that he is losing his energy. He does not have a lot of appetite. He complains of some nausea but no vomiting. No acute events overnight reported to me by nursing staff. Objective - Vital Signs Vital signs: Vital Signs Temp 97.9 F 04/06/20 09:32 Pulse 82 04/06/20 09:32 Resp 12 04/06/20 09:32 BP 110/51 04/06/20 09:32 Pulse Ox 97 04/06/20 09:32 Intake & Output 04/05/20 04/06/20 04/06/20 18:59 06:59 18:59 Intake Total 1000 600 Output Total 555 Balance 445 600 Weight 63.503 kg 63.503 kg 63.503 kg Intake: Intake, IV Titration 600 600 Amount Sodium Chloride 0.9% 1, 600 600 000 ml @ 75 mls/hr IV . [id number] STA Rx#:[id number] Oral 400 Output: Drainage 555 Left Back 225 Right Back 330 Other: Voiding Method Ileal Conduit (Right) Ileal Conduit (Right) Ileal Conduit (Left) Ileal Conduit (Left) # Bowel Movements 1 - Exam General: The patient is awake and alert, in no distress Eye: there is normal conjunctiva bilaterally. Neck: The neck is supple, there is no JVD. Cardiovascular: Normal S1-S2, no S3-S4, no murmurs. Respiratory: Lungs clear to auscultation bilaterally Gastrointestinal: Abdomen is soft, nontender. There is bilateral nephrostomy tube in place Musculoskeletal: There is no pedal edema. Neurological:. Speech is normal. Skin: Skin is warm and dry - Labs CBC & Chem 7: 04/06/20 08:39 04/06/20 08:39 Labs: Abnormal Lab Results - Last 24 Hours (Table) 04/05/20 04/05/20 04/05/20 Range/Units 18:41 18:41 18:41 WBC 17.8 H (3.8-10.6) k/uL RBC 3.32 L (4.30-5.90) m/uL Hgb 8.4 L (13.0-17.5) gm/dL Hct 27.4 L (39.0-53.0) % MCHC 30.6 L (31.0-37.0) g/dL RDW 16.1 H (11.5-15.5) % Neutrophils # 14.6 H (1.3-7.7) k/uL Lymphocytes # (1.0-4.8) k/uL Monocytes # 1.2 H (0-1.0) k/uL Sodium 133 L (137-145) mmol/L BUN 35 H (9-20) mg/dL Creatinine 2.38 H (0.66-1.25) mg/dL Est GFR (CKD-EPI)AfAm (60.0-200.0) Est GFR (CKD-EPI)NonAf (60.0-200.0) Glucose 173 H (74-99) mg/dL Calcium (8.7-10.3) mg/dL Alkaline Phosphatase 134 H (38-126) U/L Creatine Kinase 23 L (55-170) U/L Total Protein (6.2-8.2) g/dL Albumin (3.80-4.90) g/dL Albumin/Globulin Ratio (1.60-3.17) g/dL Urine Protein 2+ H (Negative) Urine Glucose (UA) 1+ H (Negative) Urine Blood Small H (Negative) Ur Leukocyte Esterase Large H (Negative) Urine RBC 18 H (0-5) /hpf Urine WBC >182 H (0-5) /hpf Urine WBC Clumps Many H (None) /hpf Amorphous Sediment Occasional H (None) /hpf Hyaline Casts 29 H (0-2) /lpf Urine Mucus Rare H (None) /hpf 04/06/20 04/06/20 Range/Units 08:39 08:39 WBC 14.1 H (3.8-10.6) k/uL RBC 3.13 L (4.30-5.90) m/uL Hgb 8.0 L (13.0-17.5) gm/dL Hct 26.7 L (39.0-53.0) % MCHC 30.1 L (31.0-37.0) g/dL RDW 16.2 H (11.5-15.5) % Neutrophils # 11.7 H (1.3-7.7) k/uL Lymphocytes # 0.8 L (1.0-4.8) k/uL Monocytes # (0-1.0) k/uL Sodium (137-145) mmol/L BUN 31.0 H (9-20) mg/dL Creatinine 2.1 H (0.66-1.25) mg/dL Est GFR (CKD-EPI)AfAm 33.2 L (60.0-200.0) Est GFR (CKD-EPI)NonAf 28.7 L (60.0-200.0) Glucose 169 H (74-99) mg/dL Calcium 8.6 L (8.7-10.3) mg/dL Alkaline Phosphatase (38-126) U/L Creatine Kinase (55-170) U/L Total Protein 5.8 L (6.2-8.2) g/dL Albumin 3.40 L (3.80-4.90) g/dL Albumin/Globulin Ratio 1.42 L (1.60-3.17) g/dL Urine Protein (Negative) Urine Glucose (UA) (Negative) Urine Blood (Negative) Ur Leukocyte Esterase (Negative) Urine RBC (0-5) /hpf Urine WBC (0-5) /hpf Urine WBC Clumps (None) /hpf Amorphous Sediment (None) /hpf Hyaline Casts (0-2) /lpf Urine Mucus (None) /hpf Microbiology - Last 24 Hours (Table) 04/05/20 18:41 Urine Culture - Preliminary Urine,Voided Assessment and Plan Assessment: This is a 79-year-old male with complex past medical history noted below presented to the hospital with worsening weakness and not feeling well. Patient was evaluated in the ER and currently admitted to the hospital for further management of his medical problems noted below. 1. Complicated urinary tract infection, started on IV Unasyn awaiting urine culture. Leukocytosis improving. No evidence of sepsis on presentation 2. 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 Correa options for treatment. Consult initiated. 3. Status post bilateral nephrostomy tube 4. Stage IIIB chronic kidney disease, creatinine stable at baseline. Required hemodialysis during last admission 5. Chronic medical problems, coronary artery disease with prior stent placement, essential hypertension, history of kidney stones, type 2 diabetes: Stable continue home medications 6. DVT prophylaxis with subcu Lovenox 7. CODE STATUS: DO NOT RESUSCITATE/DO NOT INTUBATE. Discussed with patient on presentation
[2020-04-06] MEDS: HYDROcodone/APAP 5-325MG 1 EACH TAB PO PRN (20:50)
[2020-04-07] MEDS: HYDROcodone/APAP 5-325MG 1 EACH TAB PO PRN ×4 (04:16→20:22)
[2020-04-07 07:56] LABS: Anisocytosis Slight; Basophils # (A) 0.1 k/uL (0-0.2); Basophils % (A) 1 %; Eosinophils # (A) 0.3 k/uL (0-0.7); Eosinophils % (A) 2 %; HCT 25.7 % (39.0-53.0); HGB 7.6 gm/dL (13.0-17.5); Hypochromasia Marked; Lymphocytes # (A) 0.9 k/uL (1.0-4.8); Lymphocytes % (A) 8 %; MCH 25.3 pg (25.0-35.0); MCHC 29.7 g/dL (31.0-37.0); Mean Platelet Volume 6.8; Monocytes # (A) 0.7 k/uL (0-1.0); Monocytes % (A) 7 %; Neutrophils # (A) 8.8 k/uL (1.3-7.7); Neutrophils % (A) 79 %; Platelet Count 341 k/uL (150-450); RBC 3.02 m/uL (4.30-5.90); RDW 16.3 % (11.5-15.5); WBC 11.1 k/uL (3.8-10.6)
[2020-04-07] MEDS: CHOLECALCIFEROL 1,000 UNIT TAB PO SCH (08:34)
[2020-04-07] MEDS: PANTOPRAZOLE 40 MG TABLET PO SCH (08:34)
[2020-04-07] MEDS: SERTRALINE 25 MG TAB PO SCH (08:34)
[2020-04-07] MEDS: CYANOCOBALAMIN 500 MCG TAB PO SCH (08:34)
[2020-04-07] MEDS: ASCORBIC ACID 500 MG TAB PO SCH (08:34)
[2020-04-07] MEDS: LEVOTHYROXINE 50 MCG TAB PO SCH (08:34)
[2020-04-07] MEDS: ENOXAPARIN 40 MG/0.4 ML SYRINGE SQ SCH (08:35)
[2020-04-07] MEDS: AMPICILLIN-SULBACTAM 3 GM in SODIUM CHLORIDE 0.9% 100 ML IVPB SCH ×2 (08:50→20:30)
[2020-04-07 13:25] LABS: African American GFR (CKD) 33.2 (60.0-200.0); Anion Gap 9.2 mmol/L (4.00-12.00); BUN/Creat Ratio 12.86 Ratio (12.00-20.00); Calcium 8.6 mg/dL (8.7-10.3); Carbon Dioxide 21.8 mmol/L (21.6-31.8); Non-African American GFR(CKD) 28.7 (60.0-200.0); Potassium 4.7 mmol/L (3.5-5.5)
[2020-04-07] MEDS ORDERED: SODIUM FERRIC GLUCONAT-SUCROSE 125 MG in SODIUM CHLORIDE 0.9% 100 ML IVPB ONE (15:00)
--- NOTE | 2020-04-07 15:05 | P.PN ---
Subjective Progress Note Date: 04/07/20 Patient is still feeling very weak and fatigued this morning. He does not have a lot of appetite. No acute events overnight reported to me by nursing staff. Objective - Vital Signs Vital signs: Vital Signs Temp 97.9 F 04/07/20 13:00 Pulse 81 04/07/20 13:00 Resp 16 04/07/20 13:00 BP 135/60 04/07/20 13:00 Pulse Ox 98 04/07/20 13:00 Intake & Output 04/06/20 04/07/20 04/07/20 18:59 06:59 18:59 Intake Total 600 100 Output Total 521 727 4512 Balance 250 -600 -950 Weight 63.503 kg Intake: Intake, IV Titration 600 100 Amount Ampicillin-Sulbactam 3 gm 100 In Sodium Chloride 0.9% 100 ml @ 200 mls/hr IVPB Q12HR KAT Rx#:[id number] Sodium Chloride 0.9% 1, 600 000 ml @ 75 mls/hr IV . [id number] STA Rx#:[id number] Output: Drainage 632 581 2322 Left Back 150 600 450 Right Back 200 600 Other: Voiding Method Ileal Conduit (Right) Ileal Conduit (Right) Ileal Conduit (Right) Ileal Conduit (Left) Ileal Conduit (Left) Ileal Conduit (Left) # Bowel Movements 1 - Exam General: The patient is awake and alert, in no distress Eye: there is normal conjunctiva bilaterally. Neck: The neck is supple, there is no JVD. Cardiovascular: Normal S1-S2, no S3-S4, no murmurs. Respiratory: Lungs clear to auscultation bilaterally Gastrointestinal: Abdomen is soft, nontender. There is bilateral nephrostomy tube in place Musculoskeletal: There is no pedal edema. Neurological:. Speech is normal. Skin: Skin is warm and dry - Labs CBC & Chem 7: 04/07/20 07:19 04/07/20 07:19 Labs: Abnormal Lab Results - Last 24 Hours (Table) 04/07/20 04/07/20 Range/Units 07:19 07:19 WBC 11.1 H (3.8-10.6) k/uL RBC 3.02 L (4.30-5.90) m/uL Hgb 7.6 L (13.0-17.5) gm/dL Hct 25.7 L (39.0-53.0) % MCHC 29.7 L (31.0-37.0) g/dL RDW 16.3 H (11.5-15.5) % Neutrophils # 8.8 H (1.3-7.7) k/uL Lymphocytes # 0.9 L (1.0-4.8) k/uL Creatinine 2.1 H (0.6-1.5) mg/dL Est GFR (CKD-EPI)AfAm 33.2 L (60.0-200.0) Est GFR (CKD-EPI)NonAf 28.7 L (60.0-200.0) Glucose 155 H (70-110) mg/dL Calcium 8.6 L (8.7-10.3) mg/dL Microbiology - Last 24 Hours (Table) 04/05/20 18:41 Urine Culture - Final Urine,Voided Assessment and Plan Assessment: This is a 79-year-old male with complex past medical history noted below presented to the hospital with worsening weakness and not feeling well. Patient was evaluated in the ER and currently admitted to the hospital for further management of his medical problems noted below. 1. Complicated urinary tract infection, started on IV Unasyn. Urine culture showed no significant growth. Leukocytosis improving. No evidence of sepsis on presentation. Would finish 3 days course of antibiotic tomorrow 2. 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 Correa options for treatment. Consult initiated. 3. Status post bilateral nephrostomy tube 4. Stage IIIB chronic kidney disease, creatinine stable at baseline. Required hemodialysis during last admission 5. Chronic iron deficiency anemia: We will give 1 dose of IV iron today awaiting hematology evaluation 6. Chronic medical problems, coronary artery disease with prior stent placement, essential hypertension, history of kidney stones, type 2 diabetes: Stable continue home medications 7. DVT prophylaxis with subcu Lovenox 8. CODE STATUS: DO NOT RESUSCITATE/DO NOT INTUBATE. Discussed with patient on presentation
--- NOTE | 2020-04-07 18:18 | P.CONS ---
History of Present Illness - Reason for Consult Consult date: 04/06/20 Urothelial Cancer Requesting physician: Richard Pappas - Chief Complaint Myalgias, wekaness, fatigue - History of Present Illness This is an 79 yr old male patient initially seen in consult at [facility] on 12/12/19. He had presented to the emergency room with hematuria and lower abdominal pain. Cystoscopy and biopsy by urology on 12/08/19 noted . 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 However, no muscularis propria was present for evaluation. CT of the abdomen and pelvis from 12/05/19 showed possible diverticulitis which was treated with Flagyl and Cipro Floxin. Kidney ultrasound on 12/15/19 had shown mild hydronephrosis of the left kidney. CT of the chest and abdomen 12/12/19 confirmed left hydronephrosis with possible small fistula from midsigmoid to bladder. Colonoscopy in 10/17 had shown no evidence of fistula, however. The patient had repeat cystoscopy with transurethral resection on 12/13/19. This showed invasive high-grade urothelial carcinoma with lymphovascular invasion, with muscularis propria extensively involved by tumor. CT of the chest and a bone scan done in hospital showed no evidence of metastatic disease. The patient has multiple medical problems including history of angina, hypertension and diabetes. During this hospitalization. He also had evidence of renal insufficiency with some improvement with hydration. The ileocolic urination of the case. He was transferred to [facility] for surgical evaluation. He had a CT cystogram of the pelvis on 12/21/19 that showed resolution of previously noted area versus fistulous connection. There was no evidence of bladder perforation on this study. There evaluation of the bone scan noted a possible increase uptake in the left femur neck with underlying small sclerotic lesion. An MRI was performed on 12/24/19 that indicated that this was a bone island. The patient then underwent exploratory laporotomy on 12/25/19 with plan for bladder resection. He was found to have extensive adhesions between bladder, sigmoid colon and anterior abdominal wall. Frozen sections from the sigmoid colon revealed involvement with carcinoma. The patient also had 4 pelvic lymph nodes removed which were negative. Surgery was therefore aborted and he was recommended systemic therapy. He was seen for his first office visit on 01/12/20 the patient was showing evidence of dehydration and SIRS in the office and was sent in to the emergency room. CT scans revealed evidence of a 9+ centimeter diverticular abscess adjacent to the sigmoid colon. The patient had a drain placed with cultures growing multiple organisms. The improve slowly and was then discharged to [facility]. The patient was readmitted in early 02/17 with GI bleed with EGD showing a large antral ulcer. He was treated supportively with transfusion and PPIs. the patient was then discharged home. He completed antibiotics in mid 02/17. The patient had a PET scan done when seen in the office. This showed no evidence of metastatic disease with uptake essentially only in the bladder. However it did show bilateral pleural effusions, right greater than left. In addition, his labs showed marked renal insufficiency with creatinine 3.49 at this visit in 02/17 He notes marked increase in shortness of breath and can only ambulate a few feet with a cane. Appetite was diminished again. When seen in the office on 03/14/20 he noted marked increase in shortness of breath, as well as bilateral lower extremity swelling. He could only ambulate a few feet. Appetite had started to improve after his prior admission but was diminished again. He reported significant increase in weakness. Given his PET findings as well as current symptoms and known metabolic abnormalities he was directly to go to the ER where he was admitted for further management. Abdomen the ER showed marked progression of his renal insufficiency with creatinine and 8-9 range and potassium 6.8. Review of Systems All systems: negative Constitutional: Reports as per HPI Past Medical History Past Medical History: Cancer, Chest Pain / Angina, Diabetes Mellitus, Hypertension Additional Past Medical History / Comment(s): shortness of breath, bowel and bladder ca History of Any Multi-Drug Resistant Organisms: None Reported Past Surgical History: Back Surgery Additional Past Surgical History / Comment(s): hand surgery. back surgery with 4 screws and 2 rods currently had surgery for cancer on bladder on on the outside of his colon, has drain to LLQ abdomen Past Anesthesia/Blood Transfusion Reactions: No Reported Reaction Additional Past Anesthesia/Blood Transfusion Reaction / Comm: son allergic to one type of anesthesia Past Psychological History: No Psychological Hx Reported Smoking Status: Former smoker Past Alcohol Use History: None Reported Past Drug Use History: None Reported - Past Family History Mother Family Medical History: Unable to Obtain Additional Family Medical History / Comment(s): adopted Medications and Allergies Home Medications Medication Instructions Recorded Confirmed Type Ascorbic Acid [Vitamin C] 500 mg PO DAILY 03/31/18 04/05/20 History Cholecalciferol [Vitamin D3 (25 1,000 unit PO DAILY 03/31/18 04/05/20 History Mcg = 1000 Iu)] Cyanocobalamin [Vitamin B-12] 500 mcg PO DAILY 03/31/18 04/05/20 History Levothyroxine Sodium [Synthroid] 50 mcg PO AC-BRKFST 10/10/19 04/05/20 History Acetaminophen Tab [Tylenol Tab] 1,000 mg PO Q6H PRN 04/05/20 04/05/20 History HYDROcodone/APAP 5-325MG [[place] 1 tab PO TID PRN 04/05/20 04/05/20 History 5-325] Iron 27mg 27 mg PO DAILY 04/05/20 04/05/20 History Pantoprazole Sodium [Protonix] 20 mg PO DAILY 04/05/20 04/05/20 History Sertraline [Zoloft] 25 mg PO DAILY 04/05/20 04/05/20 History Allergies Allergy/AdvReac Type Severity Reaction Status Date / Time ciprofloxacin [From Cipro] Allergy Swelling Verified 04/05/20 20:43 propoxyphene [From Darvon] Allergy Hallucinati Verified 04/05/20 20:43 ons Iodinated Contrast Media AdvReac Dyspnea Verified 04/05/20 20:43 [Iodinated Contrast- Oral and IV Dye] Physical Exam Vitals: Vital Signs Temp Pulse Pulse Resp BP BP Pulse Ox 04/06/20 09:32 97.9 F 82 12 110/51 97 04/06/20 08:30 97 04/06/20 04:45 98.1 F 86 16 116/57 95 04/06/20 00:05 15 04/05/20 22:36 97.9 F 81 15 134/66 99 04/05/20 22:11 97.9 F 83 18 110/95 99 04/05/20 21:00 85 18 115/87 99 04/05/20 20:00 80 18 115/51 97 04/05/20 19:06 97.7 F 77 14 99/56 100 04/05/20 17:32 98.3 F 95 20 89/50 99 Intake and Output 04/05/20 04/06/20 04/06/20 22:59 06:59 14:59 Intake Total 1000 Output Total 555 Balance 445 Intake: Intake, IV Titration 600 Amount Sodium Chloride 0.9% 1, 600 000 ml @ 75 mls/hr IV . [id number] STA Rx#:[id number] Oral 400 Output: Drainage 555 Left Back 225 Right Back 330 Other: Voiding Method Ileal Conduit (Right) Ileal Conduit (Right) Ileal Conduit (Left) Ileal Conduit (Left) # Bowel Movements 1 Weight 63.503 kg - Constitutional General appearance: cooperative, no acute distress - EENT ENT: hard of hearing - Respiratory Respiratory: bilateral: CTA - Cardiovascular Rhythm: irregularly irregular leg Peripheral Edema: bilateral: Trace - Gastrointestinal General gastrointestinal: soft, tenderness - Integumentary Integumentary: pale - Neurologic non-focal - Musculoskeletal Musculoskeletal: generalized weakness, strength equal bilaterally - Psychiatric Psychiatric: A&O x's 3 Results CBC & Chem 7: 04/07/20 07:19 04/07/20 07:19 Labs: Abnormal Lab Results - Last 24 Hours (Table) 04/05/20 04/05/20 04/05/20 Range/Units 18:41 18:41 18:41 WBC 17.8 H (3.8-10.6) k/uL RBC 3.32 L (4.30-5.90) m/uL Hgb 8.4 L (13.0-17.5) gm/dL Hct 27.4 L (39.0-53.0) % MCHC 30.6 L (31.0-37.0) g/dL RDW 16.1 H (11.5-15.5) % Neutrophils # 14.6 H (1.3-7.7) k/uL Lymphocytes # (1.0-4.8) k/uL Monocytes # 1.2 H (0-1.0) k/uL Sodium 133 L (137-145) mmol/L BUN 35 H (9-20) mg/dL Creatinine 2.38 H (0.66-1.25) mg/dL Glucose 173 H (74-99) mg/dL Alkaline Phosphatase 134 H (38-126) U/L Creatine Kinase 23 L (55-170) U/L Urine Protein 2+ H (Negative) Urine Glucose (UA) 1+ H (Negative) Urine Blood Small H (Negative) Ur Leukocyte Esterase Large H (Negative) Urine RBC 18 H (0-5) /hpf Urine WBC >182 H (0-5) /hpf Urine WBC Clumps Many H (None) /hpf Amorphous Sediment Occasional H (None) /hpf Hyaline Casts 29 H (0-2) /lpf Urine Mucus Rare H (None) /hpf 04/06/20 Range/Units 08:39 WBC 14.1 H (3.8-10.6) k/uL RBC 3.13 L (4.30-5.90) m/uL Hgb 8.0 L (13.0-17.5) gm/dL Hct 26.7 L (39.0-53.0) % MCHC 30.1 L (31.0-37.0) g/dL RDW 16.2 H (11.5-15.5) % Neutrophils # 11.7 H (1.3-7.7) k/uL Lymphocytes # 0.8 L (1.0-4.8) k/uL Monocytes # (0-1.0) k/uL Sodium (137-145) mmol/L BUN (9-20) mg/dL Creatinine (0.66-1.25) mg/dL Glucose (74-99) mg/dL Alkaline Phosphatase (38-126) U/L Creatine Kinase (55-170) U/L Urine Protein (Negative) Urine Glucose (UA) (Negative) Urine Blood (Negative) Ur Leukocyte Esterase (Negative) Urine RBC (0-5) /hpf Urine WBC (0-5) /hpf Urine WBC Clumps (None) /hpf Amorphous Sediment (None) /hpf Hyaline Casts (0-2) /lpf Urine Mucus (None) /hpf Microbiology - Last 24 Hours (Table) 04/05/20 18:41 Urine Culture - Preliminary Urine,Voided Chest x-ray: report reviewed Abdominal x-ray: report reviewed Assessment and Plan Plan: UTI: - IV antibiotics per primary team - CUltures Pending Bladder Cancer: - - Locally advanced bladder cancer which was not surgically operable at initial presentation - During initial diagnostic work-up intra-abdominal abscess was found, therefore systemic chemotherapy on hold until resolution of this. He has not started systemic therapy for his cancer to date - Recent PET did not reveal any distant metastatic disease, although did reveal the newly developed complications which has preceded this hospital admission - With the picture of renal failure, the treatment options of systemic therapy do become more limited. Standard treatment for his diagnosis would usually contain a [place] based regimen, although contraindicated in patient with renal failure, unless he is deemed to receive chronic dialysis and in this case we could potentially move forward with a [place] based regimen in accordance with nephrology. Plan was to follow-up with Dr. callaway after his recent admission although patient has now been re-admitted Acute renal failure/ On CKD3 - Nephrology management - Dialysis initiated last admission - Status Post nephro tubes
[2020-04-08] MEDS: HYDROcodone/APAP 5-325MG 1 EACH TAB PO PRN ×3 (02:27→15:26)
[2020-04-08] MEDS ORDERED: LEVOTHYROXINE 50 MCG TAB PO SCH (06:30)
[2020-04-08 07:12] LABS: Anisocytosis Slight; Basophils # (A) 0.1 k/uL (0-0.2); Basophils % (A) 1 %; Eosinophils # (A) 0.4 k/uL (0-0.7); Eosinophils % (A) 4 %; HCT 26.3 % (39.0-53.0); HGB 7.9 gm/dL (13.0-17.5); Hypochromasia Marked; Lymphocytes # (A) 1.1 k/uL (1.0-4.8); Lymphocytes % (A) 12 %; MCH 25.1 pg (25.0-35.0); MCHC 30.1 g/dL (31.0-37.0); MCV 83.5 fL (80.0-100.0); Monocytes # (A) 0.7 k/uL (0-1.0); Monocytes % (A) 8 %; Neutrophils # (A) 6.4 k/uL (1.3-7.7); Neutrophils % (A) 72 %; Platelet Count 378 k/uL (150-450); RBC 3.15 m/uL (4.30-5.90); RDW 16.3 % (11.5-15.5); WBC 8.9 k/uL (3.8-10.6)
[2020-04-08 07:51] VITALS: RESP 18
[2020-04-08] MEDS: AMPICILLIN-SULBACTAM 3 GM in SODIUM CHLORIDE 0.9% 100 ML IVPB SCH (08:52)
[2020-04-08] MEDS: CHOLECALCIFEROL 1,000 UNIT TAB PO SCH (08:54)
[2020-04-08] MEDS: PANTOPRAZOLE 40 MG TABLET PO SCH (08:54)
[2020-04-08] MEDS: CYANOCOBALAMIN 500 MCG TAB PO SCH (08:54)
[2020-04-08] MEDS: ASCORBIC ACID 500 MG TAB PO SCH (08:55)
[2020-04-08] MEDS: ENOXAPARIN 40 MG/0.4 ML SYRINGE SQ SCH (08:55)
[2020-04-08] MEDS: SERTRALINE 25 MG TAB PO SCH (08:55)
[2020-04-08 11:05] LABS: African American GFR (CKD) 33.2 (60.0-200.0); Anion Gap 8.7 mmol/L (4.00-12.00); BUN/Creat Ratio 10.95 Ratio (12.00-20.00); Calcium 8.8 mg/dL (8.7-10.3); Carbon Dioxide 25.3 mmol/L (21.6-31.8); Non-African American GFR(CKD) 28.7 (60.0-200.0); Potassium 4.7 mmol/L (3.5-5.5)
[2020-04-08 11:21] VITALS: BP 129/67; PULSE 71; TEMP 97.6
--- NOTE | 2020-04-08 11:55 | CDI ---
Documentation Clarification Form Date: 04/08/2020 11:42:25 AM From: Desiree BrookeHutchinsJOHN, CCDS Admit Date: 04/05/2020 07:40:00 PM Patient Name: Edwin Sorensen Visit Number: [id number] Discharge Date: ATTENTION: The Clinical Documentation Specialists (CDI) and [facility] Coding Staff appreciate your assistance in clarifying documentation. Please respond to the clarification below the line at the bottom and electronically sign. The CDI & [facility] Coding staff will review the response and follow-up if needed. Please note: Queries are made part of the Legal Health Record. If you have any questions, please contact the author of this message via ITS. Dr. Jan Mendoza: Patient presented to the ED on 04/05 with UTI (recurrent), Dehydration, JUDD, CKD 3 & Urothelial Cancer. Patient had significant weakness, chills, shakes, lack of energy & difficulty walking. Per patient, also anorexia with nausea & vomiting & 40 lb weight loss due to poor oral intake. Per the History & Physical 04/05: Chronically ill appearing, History/Risk Factors: Bladder and Colon Cancer, Recurrent UTIs, CKD 3 requiring dialysis on previous admission, Angina, CAD with coronary stent, DM II, Hypertension. Clinical Indicators: Presented as above. 04/05 VS: T 98.3 - 97.7, BP 89/50* 04/05 LAB: WBC 17.8^, Hgb 8.4*, Hct 27.4*, Neut 15.6^, Na 133*, BUN 35^, Cr 2.38^, Glucose 173^. Lactic Acid: (1.4) UA: Light yellow, turbid, 2+ protein, 1+ glucose, small blood.ic acid: Urine culture: final: negative. Treatment 04/05: IV fluid 1,000 mls @ 75 mls/hr q13, IV fluid 1,000 mls @ 999 mls/hr q1, IV flid 600 mls @ 999 mls/hr q31m, IV Ampicillin, IV Zofran, IV fluid 1,000 mls @ 150 mls/hr q6, IV Dilaudid. In your professional opinion, please clarify if these findings signify one of the following conditions, whether the condition is POA, and cause, if known: Sepsis Severe Sepsis, please specified organ failure: Other, please specify Unable to determine Present on Admission: Yes or No Patient does not meet sepsis criteria (Last Revision: August 2017) MTDD
--- NOTE | 2020-04-08 12:53 | P.DS ---
Providers Date of admission: 04/05/20 19:40 Expected date of discharge: 04/08/20 Attending physician: Richard Pappas MD Consults: 04/06/20 01:42 Consult Physician Routine Consulting Provider: Maciej Correa Consult Reason/Comments: Bladder cancer Do you want consulting provider notified?: Yes Primary care physician: [facility] Course: This is a 79-year-old male with complex past medical history noted below presented to the hospital with worsening weakness and not feeling well. Patient was evaluated in the ER and admitted to the hospital for further management of his medical problems noted below. 1. Complicated urinary tract infection, started on IV Unasyn. Urine culture showed no significant growth. Leukocytosis improving. No evidence of sepsis on presentation. finished 3 days course of antibiotic 2. Bladder cancer with local metastasis diagnosed in October 2019, inoperable, patient was seen by Dr. Correa during this admission. He has limited options of treatment given his weakness and kidney function. Dr. Correa was concern about possible [place] esophagitis that patient does not have any evidence of oral candidiasis on exam. We will start a trial of nystatin swish and swallow for 10 days. Follow-up with oncology in the office as directed. 3. Status post bilateral nephrostomy tube 4. Stage IIIB chronic kidney disease, creatinine stable at baseline. Required hemodialysis during last admission 5. Chronic iron deficiency anemia: Given one-time dose of IV iron during this admission. Continue oral supplement. 6. Chronic medical problems, coronary artery disease with prior stent placement, essential hypertension, history of kidney stones, type 2 diabetes: Stable continue home medications. Patient was adamantly refused going to a [facility] for subacute rehab. He wanted to go to his son's house. He will be ordered a hospital bed. He will need a lot of physical therapy. Home health care consult at. Follow-up with oncology in the office as directed. Patient will be discharged in stable condition. His overall prognosis is guarded. Please refer to the electronic chart for further details about this hospitalization Patient Condition at Discharge: Poor Plan - Discharge Summary Discharge Rx Participant: No New Discharge Prescriptions: New Nystatin 100,000 Unit/ml Susp [Mycostatin Oral Susp] 5 ml PO QID #200 ml Continue Cyanocobalamin [Vitamin B-12] 500 mcg PO DAILY Cholecalciferol [Vitamin D3 (25 Mcg = 1000 Iu)] 1,000 unit PO DAILY Ascorbic Acid [Vitamin C] 500 mg PO DAILY Levothyroxine Sodium [Synthroid] 50 mcg PO AC-BRKFST Acetaminophen Tab [Tylenol] 1,000 mg PO Q6H PRN PRN Reason: Pain Sertraline [Zoloft] 25 mg PO DAILY Pantoprazole Sodium [Protonix] 20 mg PO DAILY HYDROcodone/APAP 5-325MG [[place] 5-325] 1 tab PO TID PRN PRN Reason: Pain Iron 27mg 27 mg PO DAILY Discharge Medication List Ascorbic Acid [Vitamin C] 500 mg PO DAILY 03/31/18 [History] Cholecalciferol [Vitamin D3 (25 Mcg = 1000 Iu)] 1,000 unit PO DAILY 03/31/18 [History] Cyanocobalamin [Vitamin B-12] 500 mcg PO DAILY 03/31/18 [History] Levothyroxine Sodium [Synthroid] 50 mcg PO AC-BRKFST 10/10/19 [History] Acetaminophen Tab [Tylenol] 1,000 mg PO Q6H PRN 04/05/20 [History] HYDROcodone/APAP 5-325MG [[place] 5-325] 1 tab PO TID PRN 04/05/20 [History] Iron 27mg 27 mg PO DAILY 04/05/20 [History] Pantoprazole Sodium [Protonix] 20 mg PO DAILY 04/05/20 [History] Sertraline [Zoloft] 25 mg PO DAILY 04/05/20 [History] Nystatin 100,000 Unit/ml Susp [Mycostatin Oral Susp] 5 ml PO QID #200 ml 04/08/20 [Rx] Follow up Appointment(s)/Referral(s): [facility], [NON-STAFF] - Pola Rodriguez MD [Primary Care Provider] - 1-2 days Maciej Correa MD [STAFF PHYSICIAN] - 1 Week Discharge Disposition: HOME WITH HOME HEALTH SERVICES
--- NOTE | 2020-04-09 11:23 | P.PN ---
Subjective Progress Note Date: 04/09/20 Principal diagnosis: Fatigue Objective - Vital Signs Vital signs: Vital Signs Temp 97.6 F 04/08/20 11:20 Pulse 71 04/08/20 11:20 Resp 18 04/08/20 11:20 BP 129/67 04/08/20 11:20 Pulse Ox 95 04/08/20 11:20 Intake & Output 04/08/20 04/09/20 04/09/20 18:59 06:59 18:59 Intake Total 100 Output Total 350 Balance -250 Intake: Intake, IV Titration 100 Amount Ampicillin-Sulbactam 3 gm 100 In Sodium Chloride 0.9% 100 ml @ 200 mls/hr IVPB Q12HR KAT Rx#:[id number] Output: Drainage 350 Left Back 150 Right Back 200 Other: Voiding Method Ileal Conduit (Right) Ileal Conduit (Left) # Bowel Movements 1 - Exam Constitutional General appearance: cooperative, no acute distress - EENT ENT: hard of hearing - Respiratory Respiratory: bilateral: CTA - Cardiovascular Rhythm: irregularly irregular leg Peripheral Edema: bilateral: Trace - Gastrointestinal General gastrointestinal: soft, tenderness - Integumentary Integumentary: pale - Neurologic non-focal - Musculoskeletal Musculoskeletal: generalized weakness, strength equal bilaterally - Psychiatric Psychiatric: A&O x's 3 - Labs CBC & Chem 7: 04/08/20 06:49 04/08/20 06:49 Assessment and Plan Plan: UTI: - IV antibiotics per primary team - Cultures Pending Bladder Cancer: - - Locally advanced bladder cancer which was not surgically operable at initial presentation - During initial diagnostic work-up intra-abdominal abscess was found, therefore systemic chemotherapy on hold until resolution of this. He has not started systemic therapy for his cancer to date - Recent PET did not reveal any distant metastatic disease, although did reveal the newly developed complications which has preceded this hospital admission - With the picture of renal failure, the treatment options of systemic therapy do become more limited. Standard treatment for his diagnosis would usually contain a [place] based regimen, although contraindicated in patient with renal failure, unless he is deemed to receive chronic dialysis and in this case we could potentially move forward with a [place] based regimen in accordance with nephrology. Plan was to follow-up with Dr. correa after his recent admission although patient has now been re-admitted Acute renal failure/ On CKD3 - Nephrology management - Dialysis initiated last admission - Status Post nephro tubes Dr. Correa had a long discussion with patient today regarding unable to start treatment due to recurrent hospitalizations and re-assessment of goals of care. Physician attest: I have completed the full history and physical and developed the impression and plan, agree with dictation, dictated as a scribe
--- NOTE | 2020-04-09 23:28 | CDI ---
Documentation Clarification Form Date: 04/10/2020 From: Kennedy Zapata Phone: If you have a question about this query, please contact Yessenia Thmoas, Teacher Of The Visually Impaired at [phone] between 8am and 5pm. Admit Date: 04/05/2020 Discharge Date: 04/08/2020 Patient Name: Edwin Sorensen Visit Number: [id number] ATTENTION: The Clinical Documentation Specialists (CDI) and [facility] Coding Staff appreciate your assistance in clarifying documentation. Please respond to the clarification below the line at the bottom and electronically sign. The CDI & [facility] Coding staff will review the response and follow-up if needed. Please note: Queries are made part of the Legal Health Record. If you have any questions, please contact the author of this message via ITS. Dear Jan Mary MD., A diagnosis of UTI has been documented through out the chart. History/Risk Factors: Bladder cancer, JUDD, dehydration Per HP documentation in the UTI in setting of bladder malignancy and huong nephrostomy tubes. Clinical Indicators: Nephrostomy catheter, Complicated bladder cancer Complicated urinary tract infection, started on IV Unasyn.Urine culture showed no significant growth.Leukocytosis improving.No evidence of sepsis on presentation. finished 3 days course of antibiotic In your professional opinion, can you please clarify Complicated UTI related to Nephrostomy tube? YES NO Other condition, please specify Unable to determine yes complicated UTI secondary to nephrostomy tube MTDD
== END 2020-04-08 17:06 | disposition home health service (06) | DRG 699 ==
LOC: EC 17:15 → 5NMEDONC 19:40
PROVIDERS: ADMIT Internal Medicine; ATTEND Internal Medicine
DX: T83.512A Infection and inflammatory reaction due to nephrostomy catheter, initial encounter (principal); N39.0 Urinary tract infection, site not specified; N17.9 Acute kidney failure, unspecified; C79.89 Secondary malignant neoplasm of other specified sites; E86.0 Dehydration; C67.9 Malignant neoplasm of bladder, unspecified; E11.22 Type 2 diabetes mellitus with diabetic chronic kidney disease; Z66 Do not resuscitate; I12.9 Hypertensive chronic kidney disease with stage 1 through stage 4 chronic kidney disease, or unspecified chronic kidney disease; N18.32 Chronic kidney disease, stage 3b; R63.0 Anorexia; R63.4 Abnormal weight loss; I45.10 Unspecified right bundle-branch block; D50.9 Iron deficiency anemia, unspecified; Z95.5 Presence of coronary angioplasty implant and graft; Z98.890 Other specified postprocedural states; Z88.5 Allergy status to narcotic agent; Z88.1 Allergy status to other antibiotic agents; Z91.041 Radiographic dye allergy status; Z79.890 Hormone replacement therapy; Z79.899 Other long term (current) drug therapy; Z85.038 Personal history of other malignant neoplasm of large intestine; Z87.440 Personal history of urinary (tract) infections; Z87.891 Personal history of nicotine dependence; Z87.11 Personal history of peptic ulcer disease
CPT/HCPCS: 36415; 74022; 80048; 80053; 81001; 82550; 83605; 83735; 83880; 84100; 84484; 85025; 85610; 85730; 87086; 93005; 94760; 96361; 96365; 96375; 99285

== ENCOUNTER 2020-05-10 15:37 | Emergency (ER) | payer MEDICARE ==
[2020-05-10 16:00] VITALS: BP 107/64; PULSE 88; RESP 18; TEMP 98
--- NOTE | 2020-05-10 16:55 | ED ---
General Adult HPI - General Chief complaint: Recheck/Abnormal Lab/Rx Stated complaint: Post Procedure - Catheter issue Time Seen by Provider: 05/10/20 16:43 Source: patient Mode of arrival: ambulatory Limitations: no limitations - History of Present Illness Initial comments: Dictation was produced using [employer] dictation software. please excuse any grammatical, word or spelling errors. This patient was cared for during a federal and state declared state of emergency secondary to Covid 19 Chief Complaint: 80-year-old male presents with past medical history of bladder cancer presents with leaking nephrostomy tube reservoir History of Present Illness: 80-year-old now he was here in our hospital for a nephrostomy tube change. Procedures performed by interventional radiology. Patient states he was on his way home he went to take a nap when he noted that there was a bunch of the EKG from his nephrostomy tube. No other complaints at this time. The ROS documented in this emergency department record has been reviewed and confirmed by me. Those systems with pertinent positive or negative responses have been documented in the HPI. All other systems are other negative and/or noncontributory. PHYSICAL EXAM: General Impression: Alert and oriented x3, not in acute distress HEENT: Normocephalic atraumatic, extra-ocular movements intact, pupils equal and reactive to light bilaterally, mucous membranes moist. Cardiovascular: Heart regular rate and rhythm Chest: Able to complete full sentences, no retractions, no tachypnea Abdomen: abdomen soft, non-tender, non-distended, no organomegaly Musculoskeletal: Pulses present and equal in all extremities, no peripheral edema Nephrostomy percutaneous sites are clean dry and intact. There is a catheter from the skin back To a tubing that appears to be intact. There is leakage coming from where the tubing meets the reservoir bag on both sides. Motor: no focal deficits noted Neurological: CN II-XII grossly intact, no focal motor or sensory deficits noted Skin: Intact with no visualized rashes Psych: Normal affect and mood ED course: 80-year-old male presents with leaky nephrostomy equipment. Vital signs upon arrival are within acceptable limits. leaking Nephrostomy bag was replaced. Patient discharged. - Related Data Home Medications Medication Instructions Recorded Confirmed Ascorbic Acid [Vitamin C] 500 mg PO DAILY 03/31/18 05/10/20 Cholecalciferol [Vitamin D3 (25 1,000 unit PO DAILY 03/31/18 05/10/20 Mcg = 1000 Iu)] Cyanocobalamin [Vitamin B-12] 500 mcg PO DAILY 03/31/18 05/10/20 Levothyroxine Sodium [Synthroid] 50 mcg PO AC-BRKFST 10/10/19 05/10/20 Acetaminophen Tab [Tylenol] 1,000 mg PO Q6H PRN 04/05/20 05/10/20 Iron 27mg 27 mg PO DAILY 04/05/20 05/10/20 Pantoprazole Sodium [Protonix] 20 mg PO DAILY 04/05/20 05/10/20 Sertraline [Zoloft] 25 mg PO DAILY 04/05/20 05/10/20 HYDROcodone/APAP 5-325MG [[place] 1 tab PO Q6HR PRN 05/09/20 05/10/20 5-325] Insulin Regular, Human [Novolin R 0 units SQ TID-W/MEALS PRN 05/09/20 05/10/20 Flexpen] Previous Rx's Medication Instructions Recorded Nystatin 100,000 Unit/ml Susp 5 ml PO QID #200 ml 04/08/20 [Mycostatin Oral Susp] Allergies Allergy/AdvReac Type Severity Reaction Status Date / Time ciprofloxacin [From Cipro] Allergy Swelling Verified 05/10/20 10:33 propoxyphene [From Darvon] Allergy Hallucinati Verified 05/10/20 10:33 ons Iodinated Contrast Media AdvReac Dyspnea Verified 05/10/20 10:33 [Iodinated Contrast- Oral and IV Dye] Review of Systems ROS Statement: Those systems with pertinent positive or pertinent negative responses have been documented in the HPI. ROS Other: All systems not noted in ROS Statement are negative. Past Medical History Past Medical History: Cancer, Diabetes Mellitus, Hypertension Additional Past Medical History / Comment(s): shortness of breath, bowel and bladder ca, kidney failure and had dialysis a few months ago. History of Any Multi-Drug Resistant Organisms: None Reported Past Surgical History: Back Surgery Additional Past Surgical History / Comment(s): hand surgery. back surgery with 4 screws and 2 rods currently had surgery for cancer on bladder on on the outside of his colon, has drain to LLQ abdomen, hx. of bleeding ulcer & sepsis. nephrotomy tubes. Past Anesthesia/Blood Transfusion Reactions: No Reported Reaction Additional Past Anesthesia/Blood Transfusion Reaction / Comment(s): son allergic to one type of anesthesia Past Psychological History: No Psychological Hx Reported Smoking Status: Former smoker Past Alcohol Use History: None Reported Past Drug Use History: None Reported - Past Family History Mother Family Medical History: Unable to Obtain Additional Family Medical History / Comment(s): adopted General Exam Limitations: no limitations Course Vital Signs 05/10/20 15:53 Temperature 98 F Pulse Rate 88 Respiratory 18 Rate Blood Pressure 107/64 O2 Sat by Pulse 95 Oximetry Disposition Clinical Impression: Nephrostomy complication Disposition: HOME SELF-CARE Condition: Good Is patient prescribed a controlled substance at d/c from ED?: No Referrals: Pola Rodriguez MD [Primary Care Provider] - 1-2 days Time of Disposition: 18:24
== END 2020-05-10 18:41 | disposition home or self-care (01) ==
LOC: EC 15:37
DX: N99.528 Other complication of incontinent external stoma of urinary tract (principal); E11.9 Type 2 diabetes mellitus without complications; I10 Essential (primary) hypertension; Z79.899 Other long term (current) drug therapy; Z88.1 Allergy status to other antibiotic agents; Z88.8 Allergy status to other drugs, medicaments and biological substances; Z91.041 Radiographic dye allergy status; Z87.891 Personal history of nicotine dependence; Z85.51 Personal history of malignant neoplasm of bladder
CPT/HCPCS: 99282

== ENCOUNTER → 2020-05-10 | Day surgery (SDC) | payer MEDICARE ==
[2020-05-09 14:45] VITALS: BMI 20.3
[~2020-05-10] MED LIST changes: +IOPAMIDOL-250 50ML BTL IV ONE; -IV FLUID CONTINUATION 1,000 ML IV ONE; -LACTATED RINGERS 1,000 ML IV ONE; -LACTATED RINGERS 1,000 ML IV SCH; -LIDOCAINE 1% (10MG/ML) FOR IV START INTRADERMA PRN; -LIDOCAINE 1% INJ 10MG/ML (20 ML MDV) ONE; +LIDOCAINE 1% INJ 10MG/ML (20 ML MDV) SQ ONE; -PROPOFOL 10 MG/ML 20 ML VIAL IV ONE; +SODIUM CHLORIDE 0.9% 1,000 ML IV SCH; +SODIUM CHLORIDE 0.9% 500 ML 500 ML IV ONE; +fentaNYL (PF) 50 MCG/ML 2 ML AMP IVP ONE
[2020-05-10 10:22] LABS: Glucose,Whole Blood 150 mg/dL (75-99)
[2020-05-10 10:36] VITALS: RESP 16; TEMP 98
[2020-05-10] MEDS: MIDAZOLAM 2 MG/2 ML VIAL IVP ONE ×2 (11:04→11:13)
--- NOTE | 2020-05-10 14:20 | IR ---
Bilateral nephrostomy tube change HISTORY: Bladder carcinoma Patient's indwelling tubes were prepped and draped in a sterile fashion. Lidocaine was used for local anesthesia. The left tube was cut following injection with radiographic contrast. Catheter was excha nged over wire, 0.035 inch angled glide, 8.5 Faro[place] tube advanced over the wire and fixed in place. Jesus jeffrey hand injection of contrast material verified placement. Using similar technique the right tube exchanged without incident. Catheter was fixed in place. Osvaldo zimmerman hand injection of contrast material performed verifying placement. Under procedure hemostasis achie coty. No immediate consultation. 25 minutes conscious sedation time. 3.3 minutes fluoroscopy time. 51 images document the procedure. IMPRESSION: Bilateral nephrostomy tube exchange, this procedure performed by undersigned.
[2020-05-10 20:07] VITALS: BP 112/59; PULSE 64
== END ==
LOC: CATHCVL 10:04
PROVIDERS: ATTEND Radiology Diagnostic Radiology
DX: T83.012A Breakdown (mechanical) of nephrostomy catheter, initial encounter (principal); C67.9 Malignant neoplasm of bladder, unspecified; B37.0 Candidal stomatitis; E11.9 Type 2 diabetes mellitus without complications; I10 Essential (primary) hypertension; E78.00 Pure hypercholesterolemia, unspecified; Z79.82 Long term (current) use of aspirin; Z79.890 Hormone replacement therapy; Z79.899 Other long term (current) drug therapy; Z79.891 Long term (current) use of opiate analgesic; Z91.048 Other nonmedicinal substance allergy status; Z88.1 Allergy status to other antibiotic agents; Z98.1 Arthrodesis status; Z85.828 Personal history of other malignant neoplasm of skin; Z98.890 Other specified postprocedural states; Z90.89 Acquired absence of other organs; Z86.19 Personal history of other infectious and parasitic diseases; Z87.891 Personal history of nicotine dependence
CPT/HCPCS: 50435; C1729; C1769 ×2; J2250; J0690; J2001; J3010; Q9966

== ENCOUNTER 2020-05-20 12:29 | Inpatient (IN) | payer MEDICARE ==
[2020-05-20] MEDS ORDERED: HYDROmorphone 1 MG/ML 1 ML SYRINGE IVP STA ×2 (13:33→14:05)
[2020-05-20] MEDS ORDERED: ONDANSETRON 4 MG/2 ML VIAL IVP STA (13:34)
[2020-05-20 14:04] LABS: Anisocytosis Slight; Basophils # (A) 0.1 k/uL (0-0.2); Basophils % (A) 0 %; Eosinophils # (A) 0.2 k/uL (0-0.7); Eosinophils % (A) 1 %; HCT 35.5 % (39.0-53.0); Hypochromasia Moderate; Lymphocytes # (A) 1.4 k/uL (1.0-4.8); Lymphocytes % (A) 7 %; MCH 25.1 pg (25.0-35.0); MCHC 31.2 g/dL (31.0-37.0); MCV 80.4 fL (80.0-100.0); Mean Platelet Volume 6.9; Microcytosis Slight; Monocytes # (A) 0.9 k/uL (0-1.0); Monocytes % (A) 5 %; Neutrophils # (A) 16.6 k/uL (1.3-7.7); Neutrophils % (A) 85 %; Platelet Count 430 k/uL (150-450); RBC 4.41 m/uL (4.30-5.90); RDW 18.8 % (11.5-15.5); WBC 19.5 k/uL (3.8-10.6)
[2020-05-20 14:08] LABS: Potassium 4.5 mmol/L (3.5-5.1); Total Bilirubin 0.3 mg/dL (0.2-1.3); Total Protein 7.4 g/dL (6.3-8.2)
[2020-05-20 14:33] LABS: Partial Thromboplastin Time 23.6 sec (22.0-30.0); Prothrombin Time 10.2 sec (9.0-12.0)
--- NOTE | 2020-05-20 14:36 | CT ---
EXAMINATION TYPE: CT abdomen pelvis wo con DATE OF EXAM: 05/20/2020 COMPARISON: PET/CT 03/09/2020 HISTORY: 80-year-old male abdominal and Pelvic pain. CT DLP: 573.3 mGycm. Automated exposure control for dose reduction was used. TECHNIQUE: Contiguous axial scanning of the abdomen and pelvis without IV contrast. Coronal and sagit mary reconstructions performed. FINDINGS: Heart normal size without pericardial effusion. Tiny hiatal hernia. Small right pleural effusion. Stable 1.9 cm cyst left liver lobe. Otherwise, noncontrast appearance of the liver, gallbladder, adre nal glands, spleen, and pancreas show no gross abnormal body. Interval placement of bilateral nephrostomy tubes with resolution of the previous hydronephrosis. No dilated small bowel or free air. Mild ascites along the paracolic gutters. However, there is colonic distention. Prominent stool within both ascending and descending colon. Asc ending colon dilated up to 8.3 cm wide and descending colon dilated up to 4.5 cm wide. Sigmoid colon measures 4.6 cm. Distal sigmoid diverticulosis. There is a 7.0 cm long segment of thickened and narrowed mid to distal sigmoid colon (refer to de la cruz l image 46). This thickened segment of colon is contiguous with extraluminal soft tissue measuring 4. 4 cm (axial image 123) at the site of prior surgical material, contiguous with thickened dome of the bladder. There is some residual linear thickening which tracks up along the left retroperitoneum, axi al image 115 previously seen to have contains air, possible collapsed old abscess cavity. Irregular soft tissue nodularity along the anterior peritoneum just adjacent, for example, referred t o axial images 117 and 121. Moderate to severe circumferential thickening of the collapsed bladder. Mild presacral soft tissue ed anibal. Small moderate fluid extending into a patulous right inguinal canal. No pelvic lymphadenopathy c learly identified. Bones: Mild degenerative change of the hips. Posterior fusion at L4-L5 with corresponding laminectomi es. Moderate degenerative disc disease L2-L3 and L3-L4. IMPRESSION: 1. Increasing annular thickening of a 7 cm long segment of the mid to distal sigmoid. Thickened soft tissue extends from here and becomes contiguous with a markedly thickened bladder dome. There is als o new irregular nodularity along the anterior lower peritoneum just adjacent. Unable to exclude local neoplastic progression. 2. Dilated colon. The ascending colon measures up to 8.3 cm and the sigmoid colon measures up to 4.6 cm. Unable to exclude a relative obstruction due to the annular thickening of the mid to distal sigm oid. 3. Interval placement of bilateral nephrostomy tubes with decompression of the renal collecting syst ems. 4. Small right pleural effusion and trace ascites along the paracolic gutters.
[2020-05-20 14:40] LABS: HGB 11.1 gm/dL (13.0-17.5)
[2020-05-20 14:56] LABS: Appearance,Urine Cloudy (Clear); Bacteria,Urine Few /hpf; Bilirubin,Urine Negative (Negative); Blood,Urine Moderate (Negative); Color,Urine Yellow; Glucose,Urine (UA) Negative (Negative); Ketones,Urine Negative (Negative); Leukocyte Esterase,Urine Large (Negative); Nitrite,Urine Negative (Negative); Protein,Urine 2+ (Negative); RBC,Urine >182 /hpf (0-5); Specific Gravity,Urine 1.018 (1.001-1.035); Squamous Epithelial Cell,Urine <1 /hpf (0-4); Urobilinogen,Urine <2.0 mg/dL (<2.0); WBC,Urine 99 /hpf (0-5)
--- NOTE | 2020-05-20 15:15 | ED ---
Abdominal Pain HPI - General Chief Complaint: Abdominal Pain Stated Complaint: Abd Pain Time Seen by Provider: 05/20/20 12:39 Source: patient, EMS Mode of arrival: EMS - History of Present Illness Initial Comments: Patient is an 80-year-old male with past history of bladder cancer status post bilateral nephrostomy tubes presents emergency Department with reported increasing abdominal pain. He reports that he started having suprapubic abdominal pain last night. The pain was so severe that he ended up having an episode of emesis this morning. Patient has not taken any medications for her symptoms. Reports that he is had normal output taken his nephrostomy tubes. No hematuria. No fevers or chills. Does report 2 normal bowel movements. No constipation, diarrhea, melenic stools or hematochezia. Denies any current nausea or vomiting. No back or flank pain. He emptied his nephrostomy tubes approximately one hour before hospital arrival and states that the output has not been decreased. Denies any chest pain or shortness of breath. No numbness, tingling or weakness into the lower 20s. No other alleviating, precipitating or modifying factors - Related Data Home Medications Medication Instructions Recorded Confirmed Levothyroxine Sodium [Synthroid] 50 mcg PO DAILY 10/10/19 05/20/20 Pantoprazole Sodium [Protonix] 20 mg PO DAILY 04/05/20 05/20/20 Sertraline [Zoloft] 25 mg PO DAILY 04/05/20 05/20/20 HYDROcodone/APAP 5-325MG [[place] 1 tab PO TID PRN 05/09/20 05/20/20 5-325] Insulin Aspart [NovoLOG Flexpen] See Protocol SQ AC-TID 05/20/20 05/20/20 Megestrol [Megace] 80 mg PO DAILY 05/20/20 05/20/20 Nystatin 100,000 Unit/ml Susp 400,000 unit PO QID 05/20/20 05/20/20 [Mycostatin Oral Susp] Allergies Allergy/AdvReac Type Severity Reaction Status Date / Time ciprofloxacin [From Cipro] Allergy Swelling Verified 05/20/20 15:40 propoxyphene [From Darvon] Allergy Hallucinati Verified 05/20/20 15:40 ons Iodinated Contrast Media AdvReac Dyspnea Verified 05/20/20 15:40 [Iodinated Contrast- Oral and IV Dye] Review of Systems ROS Statement: Those systems with pertinent positive or pertinent negative responses have been documented in the HPI. ROS Other: All systems not noted in ROS Statement are negative. Past Medical History Past Medical History: Cancer, Diabetes Mellitus, Hypertension Additional Past Medical History / Comment(s): shortness of breath, bowel and bladder ca, kidney failure and had dialysis a few months ago. History of Any Multi-Drug Resistant Organisms: None Reported Past Surgical History: Back Surgery Additional Past Surgical History / Comment(s): hand surgery. back surgery with 4 screws and 2 rods currently had surgery for cancer on bladder on on the outside of his colon, has drain to LLQ abdomen, hx. of bleeding ulcer & sepsis. nephrotomy tubes. Past Anesthesia/Blood Transfusion Reactions: No Reported Reaction Additional Past Anesthesia/Blood Transfusion Reaction / Comment(s): son allergic to one type of anesthesia Past Psychological History: No Psychological Hx Reported Smoking Status: Former smoker Past Alcohol Use History: None Reported Past Drug Use History: None Reported - Past Family History Mother Family Medical History: Unable to Obtain Additional Family Medical History / Comment(s): adopted General Exam General appearance: alert, in distress Head exam: Present: atraumatic, normocephalic, normal inspection Eye exam: Present: normal appearance, PERRL, EOMI. Absent: scleral icterus, conjunctival injection, periorbital swelling ENT exam: Present: normal exam, mucous membranes moist Neck exam: Present: normal inspection. Absent: tenderness, meningismus, lymphadenopathy Respiratory exam: Present: normal lung sounds bilaterally. Absent: respiratory distress, wheezes, rales, rhonchi, stridor Cardiovascular Exam: Present: regular rate, normal rhythm, normal heart sounds. Absent: systolic murmur, diastolic murmur, rubs, gallop, clicks GI/Abdominal exam: Present: distended, tenderness (suprapubic), guarding, diminished bowel sounds. Absent: rebound, rigid Extremities exam: Present: normal inspection, full ROM, normal capillary refill. Absent: tenderness, pedal edema, joint swelling, calf tenderness Back exam: Present: normal inspection Neurological exam: Present: alert, oriented X3, CN II-XII intact Psychiatric exam: Present: normal affect, normal mood Skin exam: Present: warm, dry, intact, normal color. Absent: rash Course Vital Signs 05/20/20 05/20/2020 12:33 16:44 17:16 Temperature 97.6 F Pulse Rate 106 H 98 74 Pulse Rate [ Pulse Oximetery ] Respiratory 18 16 18 Rate Blood Pressure 126/75 144/75 118/91 Blood Pressure [Left Arm] O2 Sat by Pulse 98 96 98 Oximetry 05/20/20 17:21 Temperature 97.6 F Pulse Rate Pulse Rate [ 72 Pulse Oximetery ] Respiratory 18 Rate Blood Pressure Blood Pressure 165/72 [Left Arm] O2 Sat by Pulse 99 Oximetry Medical Decision Making - Medical Decision Making On arrival the patient is placed into room 15. A thorough history of physical exam is performed. Patient was in a significant amount of distress due to his abdominal pain therefore an IV was established and the patient was given a dose of Dilaudid. Laboratory studies were obtained and the patient went for CT without contrast as he does have a contrast ALLERGY. Laboratory studies are reviewed and demonstrate a white count 19.5. Creatinine is 1.6. Urinalysis does demonstrate greater than 182 red blood cells, 99 with blood cells and few white blood cell clumps. CT of the patient's abdomen and pelvis demonstrates increasing annular thickening of a 7 cm long segment of the mid to distal sigmoid. Thickened soft tissue extends to the thickened bladder dome. Unable to exclude local neoplastic process. It dilated colon up to 8.3 cm. Possible structures due to the thickening. Results discussed the patient. Continues to have abdominal pain and therefore he was given an additional dose of pain medications. I did call and discussed the case with Dr. Garcia. He has come to the emergency room and evaluate the patient. Recommended antibiotics, pain control and NG tube placement. Results are discussed with patient he does agree the treatment plan. He is currently awaiting a bed on the floor - Lab Data Result diagrams: 05/28/20 07:20 05/28/20 07:09 Lab Results 05/20/20 05/20/20 05/20/20 Range/Units 13:44 13:44 13:44 WBC 19.5 H (3.8-10.6) k/uL RBC 4.41 (4.30-5.90) m/uL Hgb 11.1 L D (13.0-17.5) gm/dL Hct 35.5 L (39.0-53.0) % MCV 80.4 (80.0-100.0) fL MCH 25.1 (25.0-35.0) pg MCHC 31.2 (31.0-37.0) g/dL RDW 18.8 H (11.5-15.5) % Plt Count 430 (150-450) k/uL MPV 6.9 Neutrophils % 85 % Lymphocytes % 7 % Monocytes % 5 % Eosinophils % 1 % Basophils % 0 % Neutrophils # 16.6 H (1.3-7.7) k/uL Lymphocytes # 1.4 (1.0-4.8) k/uL Monocytes # 0.9 (0-1.0) k/uL Eosinophils # 0.2 (0-0.7) k/uL Basophils # 0.1 (0-0.2) k/uL Hypochromasia Moderate Anisocytosis Slight Microcytosis Slight PT 10.2 (9.0-12.0) sec INR 1.0 (<1.2) APTT 23.6 (22.0-30.0) sec Sodium 139 (137-145) mmol/L Potassium 4.5 (3.5-5.1) mmol/L Chloride 107 (98-107) mmol/L Carbon Dioxide 21 L (22-30) mmol/L Anion Gap 11 mmol/L BUN 39 H (9-20) mg/dL Creatinine 1.65 H (0.66-1.25) mg/dL Est GFR (CKD-EPI)AfAm 44 (>60 ml/min/1.73 sqM) Est GFR (CKD-EPI)NonAf 38 (>60 ml/min/1.73 sqM) Glucose 166 H (74-99) mg/dL Plasma Lactic Acid Alex (0.7-2.0) mmol/L Calcium 10.0 (8.4-10.2) mg/dL Total Bilirubin 0.3 (0.2-1.3) mg/dL AST 18 (17-59) U/L ALT 12 (4-49) U/L Alkaline Phosphatase 94 (38-126) U/L Total Protein 7.4 (6.3-8.2) g/dL Albumin 4.0 (3.5-5.0) g/dL Lipase 40 (23-300) U/L Urine Color Urine Appearance (Clear) Urine pH (5.0-8.0) Ur Specific [place] (1.001-1.035) Urine Protein (Negative) Urine Glucose (UA) (Negative) Urine Ketones (Negative) Urine Blood (Negative) Urine Nitrite (Negative) Urine Bilirubin (Negative) Urine Urobilinogen (<2.0) mg/dL Ur Leukocyte Esterase (Negative) Urine RBC (0-5) /hpf Urine WBC (0-5) /hpf Urine WBC Clumps (None) /hpf Ur Squamous Epith Cells (0-4) /hpf Urine Bacteria (None) /hpf 05/20/20 05/20/20 Range/Units 13:44 14:34 WBC (3.8-10.6) k/uL RBC (4.30-5.90) m/uL Hgb (13.0-17.5) gm/dL Hct (39.0-53.0) % MCV (80.0-100.0) fL MCH (25.0-35.0) pg MCHC (31.0-37.0) g/dL RDW (11.5-15.5) % Plt Count (150-450) k/uL MPV Neutrophils % % Lymphocytes % % Monocytes % % Eosinophils % % Basophils % % Neutrophils # (1.3-7.7) k/uL Lymphocytes # (1.0-4.8) k/uL Monocytes # (0-1.0) k/uL Eosinophils # (0-0.7) k/uL Basophils # (0-0.2) k/uL Hypochromasia Anisocytosis Microcytosis PT (9.0-12.0) sec INR (<1.2) APTT (22.0-30.0) sec Sodium (137-145) mmol/L Potassium (3.5-5.1) mmol/L Chloride (98-107) mmol/L Carbon Dioxide (22-30) mmol/L Anion Gap mmol/L BUN (9-20) mg/dL Creatinine (0.66-1.25) mg/dL Est GFR (CKD-EPI)AfAm (>60 ml/min/1.73 sqM) Est GFR (CKD-EPI)NonAf (>60 ml/min/1.73 sqM) Glucose (74-99) mg/dL Plasma Lactic Acid Alex 1.5 (0.7-2.0) mmol/L Calcium (8.4-10.2) mg/dL Total Bilirubin (0.2-1.3) mg/dL AST (17-59) U/L ALT (4-49) U/L Alkaline Phosphatase (38-126) U/L Total Protein (6.3-8.2) g/dL Albumin (3.5-5.0) g/dL Lipase (23-300) U/L Urine Color Yellow Urine Appearance Cloudy (Clear) Urine pH 6.0 (5.0-8.0) Ur Specific [place] 1.018 (1.001-1.035) Urine Protein 2+ H (Negative) Urine Glucose (UA) Negative (Negative) Urine Ketones Negative (Negative) Urine Blood Moderate H (Negative) Urine Nitrite Negative (Negative) Urine Bilirubin Negative (Negative) Urine Urobilinogen <2.0 (<2.0) mg/dL Ur Leukocyte Esterase Large H (Negative) Urine RBC >182 H (0-5) /hpf Urine WBC 99 H (0-5) /hpf Urine WBC Clumps Few H (None) /hpf Ur Squamous Epith Cells <1 (0-4) /hpf Urine Bacteria Few H (None) /hpf Disposition Clinical Impression: Abdominal pain, Urothelial carcinoma of bladder, Bowel obstruction, Leukocytosis Disposition: ADMITTED IP TO THIS [facility] Condition: Serious Is patient prescribed a controlled substance at d/c from ED?: No Decision to Admit Reason: Admit from EC Decision Date: 05/20/20 Decision Time: 15:15
[2020-05-20] MEDS ORDERED: HYDROmorphone 2 MG TAB PO PRN (15:16)
[2020-05-20] MEDS ORDERED: NALOXONE 0.4 MG/ML 1 ML VIAL IV PRN (15:16)
[2020-05-20] MEDS ORDERED: SODIUM CHLORIDE 0.9% 2,000 ML IV ONE (15:20)
--- NOTE | 2020-05-20 15:24 | P.GSCN ---
History of Present Illness Consult date: 05/20/20 History of present illness: CHIEF COMPLAINT: Abdominal pain HISTORY OF PRESENT ILLNESS: This is a 80-year-old male with a past medical history of bladder cancer with bilateral hydronephrosis status post bilateral nephrostomy tube placement. He also has a history of duodenal ulcer, diabetes, chronic kidney disease and required dialysis for short period of time, coronary artery disease with stent, hypertension and diverticular abscess requiring CT- guided drainage. Patient presents to the emergency room with complaints of abdominal pain and distention. Computed tomography scan of the abdomen and pelvis showing concerns for colon obstruction. Patient seen and examined in the ER with Dr. Garcia. He is recommended NG tube for decompression and IV fluids. Patient is reporting that he is thirsty. He denies any vomiting. Denies any fever chills or sweats. Patient has not started chemotherapy for his bladder cancer. PAST MEDICAL HISTORY: See list. PAST SURGICAL HISTORY: See list. MEDICATIONS: See list. ALLERGIES: See list. SOCIAL HISTORY: No illicit drug use. REVIEW OF SYSTEMS: CONSTITUTIONAL: Denies fever or chills. HEENT: Denies blurred vision, vision changes, or eye pain. Denies hemoptysis CARDIOVASCULAR: Denies chest pain or pressure. RESPIRATORY: No shortness of breath. GASTROINTESTINAL: See HPI for pertinent findings HEMATOLOGIC: Denies bleeding disorders. GENITOURINARY: Denies any blood in urine or increased urinary frequency. SKIN: Denies pruitis. Denies rash. PHYSICAL EXAM: VITAL SIGNS: Reviewed GENERAL: Well-developed in no acute distress. HEENT: No sclera icterus. Extraocular movements grossly intact. Moist buccal mucosa. Head is atraumatic, normocephalic. No nasal drainage. ABDOMEN: Soft. Distended and diffuse tenderness NEUROLOGIC: Alert and oriented. Cranial nerves II through XII grossly intact. LABORATORY DATA: WBC 19.5 hemoglobin 11.1 BUN 39 creatinine 1.65 IMAGING: CT abdomen and pelvis shows increasing annular thickening of a 7 cm long segment of the mid to distal sigmoid. Thickened soft tissue extends from here and becomes contiguous with markedly thickened bladder dome. Also new irregular nodularity along the anterior lower peritoneum just adjacent. Unable to exclude local neoplastic progression. Dilated colon. The ascending colon measures up to 8.3 cm in the sigmoid colon measures up to 4.6 cm unable to exclude a relative obstruction due to the annular thickening of the mid to distal sigmoid. ASSESSMENT: 1. Colon obstruction 2. History of bladder cancer with bilateral hydronephrosis status post nephrostomy tube placement 3. History of chronic kidney disease 4. Diabetes mellitus PLAN: -Keep patient nothing by mouth -Place NG tube for decompression -Continue with IV fluids and give fluid bolus -Start IV Zosyn -Continue Zofran as needed for nausea -Continue Dilaudid as needed for pain control Physician Range Master note has been reviewed by physician. Signing provider agrees with the documented findings, assessment, and plan of care. Past Medical History Past Medical History: Cancer, Diabetes Mellitus, Hypertension Additional Past Medical History / Comment(s): shortness of breath, bowel and bladder ca, kidney failure and had dialysis a few months ago. History of Any Multi-Drug Resistant Organisms: None Reported Past Surgical History: Back Surgery Additional Past Surgical History / Comment(s): hand surgery. back surgery with 4 screws and 2 rods currently had surgery for cancer on bladder on on the outside of his colon, has drain to LLQ abdomen, hx. of bleeding ulcer & sepsis. nephrotomy tubes. Past Anesthesia/Blood Transfusion Reactions: No Reported Reaction Additional Past Anesthesia/Blood Transfusion Reaction / Comm: son allergic to one type of anesthesia Past Psychological History: No Psychological Hx Reported Smoking Status: Former smoker Past Alcohol Use History: None Reported Past Drug Use History: None Reported - Past Family History Mother Family Medical History: Unable to Obtain Additional Family Medical History / Comment(s): adopted Medications and Allergies Home Medications Medication Instructions Recorded Confirmed Type Levothyroxine Sodium [Synthroid] 50 mcg PO DAILY 10/10/19 05/20/20 History Pantoprazole Sodium [Protonix] 20 mg PO DAILY 04/05/20 05/20/20 History Sertraline [Zoloft] 25 mg PO DAILY 04/05/20 05/20/20 History HYDROcodone/APAP 5-325MG [[place] 1 tab PO TID PRN 05/09/20 05/20/20 History 5-325] Insulin Aspart [NovoLOG Flexpen] See Protocol SQ AC-TID 05/20/20 05/20/20 H istory Megestrol [Megace] 80 mg PO DAILY 05/20/20 05/20/20 History Nystatin 100,000 Unit/ml Susp 400,000 unit PO QID 05/20/20 05/20/20 History [Mycostatin Oral Susp] Allergies Allergy/AdvReac Type Severity Reaction Status Date / Time ciprofloxacin [From Cipro] Allergy Swelling Verified 05/20/20 15:40 propoxyphene [From Darvon] Allergy Hallucinati Verified 05/20/20 15:40 ons Iodinated Contrast Media AdvReac Dyspnea Verified 05/20/20 15:40 [Iodinated Contrast- Oral and IV Dye] Surgical - Exam Vital Signs Temp Pulse Resp BP Pulse Ox 97.6 F 106 H 18 126/75 98 05/20/20 12:33 05/20/20 12:33 05/20/20 12:33 05/20/20 12:33 05/20/20 12:33 Results - Labs 05/21/20 05:42 05/21/20 05:42 Abnormal Lab Results - Last 24 Hours (Table) 05/20/20 05/20/20 05/20/20 Range/Units 13:44 13:44 14:34 WBC 19.5 H (3.8-10.6) k/uL Hgb 11.1 L D (13.0-17.5) gm/dL Hct 35.5 L (39.0-53.0) % RDW 18.8 H (11.5-15.5) % Neutrophils # 16.6 H (1.3-7.7) k/uL Carbon Dioxide 21 L (22-30) mmol/L BUN 39 H (9-20) mg/dL Creatinine 1.65 H (0.66-1.25) mg/dL Glucose 166 H (74-99) mg/dL Urine Protein 2+ H (Negative) Urine Blood Moderate H (Negative) Ur Leukocyte Esterase Large H (Negative) Urine RBC >182 H (0-5) /hpf Urine WBC 99 H (0-5) /hpf Urine WBC Clumps Few H (None) /hpf Urine Bacteria Few H (None) /hpf Diabetes panel 05/20/20 Range/Units 13:44 Sodium 139 (137-145) mmol/L Potassium 4.5 (3.5-5.1) mmol/L Chloride 107 (98-107) mmol/L Carbon Dioxide 21 L (22-30) mmol/L BUN 39 H (9-20) mg/dL Creatinine 1.65 H (0.66-1.25) mg/dL Glucose 166 H (74-99) mg/dL Calcium 10.0 (8.4-10.2) mg/dL AST 18 (17-59) U/L ALT 12 (4-49) U/L Alkaline Phosphatase 94 (38-126) U/L Total Protein 7.4 (6.3-8.2) g/dL Albumin 4.0 (3.5-5.0) g/dL Calcium panel 05/20/20 Range/Units 13:44 Calcium 10.0 (8.4-10.2) mg/dL Albumin 4.0 (3.5-5.0) g/dL Pituitary panel 05/20/20 Range/Units 13:44 Sodium 139 (137-145) mmol/L Potassium 4.5 (3.5-5.1) mmol/L Chloride 107 (98-107) mmol/L Carbon Dioxide 21 L (22-30) mmol/L BUN 39 H (9-20) mg/dL Creatinine 1.65 H (0.66-1.25) mg/dL Glucose 166 H (74-99) mg/dL Calcium 10.0 (8.4-10.2) mg/dL Adrenal panel 05/20/20 Range/Units 13:44 Sodium 139 (137-145) mmol/L Potassium 4.5 (3.5-5.1) mmol/L Chloride 107 (98-107) mmol/L Carbon Dioxide 21 L (22-30) mmol/L BUN 39 H (9-20) mg/dL Creatinine 1.65 H (0.66-1.25) mg/dL Glucose 166 H (74-99) mg/dL Calcium 10.0 (8.4-10.2) mg/dL Total Bilirubin 0.3 (0.2-1.3) mg/dL AST 18 (17-59) U/L ALT 12 (4-49) U/L Alkaline Phosphatase 94 (38-126) U/L Total Protein 7.4 (6.3-8.2) g/dL Albumin 4.0 (3.5-5.0) g/dL
[2020-05-20] MEDS: PIPERACILLIN-TAZOBACTAM 3.375 GM in SODIUM CHLORIDE 0.9% 100 ML IVPB SCH (16:31)
[2020-05-20] MEDS: SODIUM CHLORIDE 0.9% 1,000 ML IV SCH (16:32)
[2020-05-20] MEDS: HYDROmorphone 1 MG/ML 1 ML SYRINGE IVP SCH ×2 (17:03→20:39)
[2020-05-20 20:59] LABS: Glucose,Whole Blood 128 mg/dL (75-99)
[2020-05-21] MEDS: PIPERACILLIN-TAZOBACTAM 3.375 GM in SODIUM CHLORIDE 0.9% 100 ML IVPB SCH ×4 (00:23→23:32)
[2020-05-21] MEDS: HYDROmorphone 1 MG/ML 1 ML SYRINGE IVP SCH ×9 (00:24→23:31)
[2020-05-21] MEDS: SODIUM CHLORIDE 0.9% 1,000 ML IV SCH ×3 (02:40→21:46)
[2020-05-21] MEDS: ONDANSETRON 4 MG/2 ML VIAL IVP PRN (03:01)
[2020-05-21] MEDS ORDERED: HYDROmorphone 0.5 MG/0.5 ML SYRINGE IVP STA (03:41)
--- NOTE | 2020-05-21 04:14 | P.CONS ---
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 The patient notes that he has not had a bowel movement in the past 3 days, and that his abdomen has gradually become more and more distended with associated intermittent 10 out of 10 and cramping abdominal pain. The pain is located mostly in the lower abdomen with some radiation throughout. Patient denied any clears alleviating or exacerbating features. Patient also denied additional complaints and he denied fever, chills, chest pain, shortness of breath, or cough. Denied headaches, weakness, numbness, tingling. CT abdomen and pelvis the emergency room and revealed suspected small bowel obstruction along with possible progression of bladder CA. Surgery was consulted and the patient was started on IV antibiotics along with IV fluids, NG tube for decompression, nothing by mouth, and pain control. At time of the interview, the patient notes ongoing 8 out of 10 pain, occurring intermittently. Laboratory evaluation from the emergency room was remarkable for a WBC count of 19.5, hemoglobin 11.1, creatinine 1.65, and an abnormal UA. Review of Systems Pertinent positives and negatives as discussed in HPI, a complete review of systems was performed and all other systems are negative. Past Medical History Past Medical History: Cancer, Diabetes Mellitus, Hypertension Additional Past Medical History / Comment(s): shortness of breath, bowel and bladder ca, kidney failure and had dialysis a few months ago. History of Any Multi-Drug Resistant Organisms: None Reported Past Surgical History: Back Surgery Additional Past Surgical History / Comment(s): hand surgery. back surgery with 4 screws and 2 rods currently had surgery for cancer on bladder on on the outside of his colon, has drain to LLQ abdomen, hx. of bleeding ulcer & sepsis. nephrotomy tubes. Past Anesthesia/Blood Transfusion Reactions: No Reported Reaction Additional Past Anesthesia/Blood Transfusion Reaction / Comm: son allergic to one type of anesthesia Past Psychological History: No Psychological Hx Reported Smoking Status: Former smoker Past Alcohol Use History: None Reported Past Drug Use History: None Reported - Past Family History Mother Family Medical History: Unable to Obtain Additional Family Medical History / Comment(s): adopted Medications and Allergies Home Medications Medication Instructions Recorded Confirmed Type Levothyroxine Sodium [Synthroid] 50 mcg PO DAILY 10/10/19 05/20/20 History Pantoprazole Sodium [Protonix] 20 mg PO DAILY 04/05/20 05/20/20 History Sertraline [Zoloft] 25 mg PO DAILY 04/05/20 05/20/20 History HYDROcodone/APAP 5-325MG [[place] 1 tab PO TID PRN 05/09/20 05/20/20 History 5-325] Insulin Aspart [NovoLOG Flexpen] See Protocol SQ AC-TID 05/20/20 05/20/20 History Megestrol [Megace] 80 mg PO DAILY 05/20/20 05/20/20 History Nystatin 100,000 Unit/ml Susp 400,000 unit PO QID 05/20/20 05/20/20 History [Mycostatin Oral Susp] Allergies Allergy/AdvReac Type Severity Reaction Status Date / Time ciprofloxacin [From Cipro] Allergy Swelling Verified 05/20/20 15:40 propoxyphene [From Darvon] Allergy Hallucinati Verified 05/20/20 15:40 ons Iodinated Contrast Media AdvReac Dyspnea Verified 05/20/20 15:40 [Iodinated Contrast- Oral and IV Dye] Physical Exam Vitals: Vital Signs Temp Pulse Pulse Resp BP BP Pulse Ox 05/21/20 02:00 98.0 F 89 16 120/72 98 05/20/20 20:00 97.6 F 72 16 165/72 99 05/20/20 17:21 97.6 F 72 18 165/72 99 05/20/20 17:16 74 18 118/91 98 05/20/20 16:44 98 16 144/75 96 05/20/20 12:33 97.6 F 106 H 18 126/75 98 Intake and Output 05/20/20 05/20/20 05/21/20 14:59 22:59 06:59 Output Total 175 125 Balance -175 -125 Output: Urine 175 125 Other: Voiding Method Ileal Conduit (Right) Ileal Conduit (Left) Weight 58.513 kg 58.513 kg General: non toxic, in mild to moderate distress due to pain, appears at stated age, normal weight Derm: no unusual rashes/lesions no unusual ecchymoses, warm, dry Head: atraumatic, normocephalic, symmetric Eyes: EOMI, no lid lag, anicteric sclera, pupils equal round reactive to light ENT: Nose and ears atraumatic, no thrush, no pharyngeal erythema Neck: No thyromegaly, no cervical lymphadenopathy, trachea midline, supple Mouth: no lip lesion, mucus membranes moist Cardiovascular: S1S2 reg, no murmur, positive posterior tibial pulse bilateral, no edema, capillary refill less than 2 seconds Lungs: CTA bilateral, no rhonchi, no rales , no accessory muscle use Abdominal: Distended, tenderness to palpation mostly in the lower abdomen, some guarding, bilateral nephrostomy tubes in place with clear urine Ext: no gross muscle atrophy, muscle strength 5 out of 5 in all 4 extremities grossly, no contractures, Neuro: CN II-XI grossly intact, light touch intact all 4 extremities, finger to nose within normal limits, Psych: Alert, oriented, appropriate affect Results CBC & Chem 7: 05/20/20 13:44 05/20/20 13:44 Labs: Abnormal Lab Results - Last 24 Hours (Table) 05/20/20 05/20/20 05/20/20 Range/Units 13:44 13:44 14:34 WBC 19.5 H (3.8-10.6) k/uL Hgb 11.1 L D (13.0-17.5) gm/dL Hct 35.5 L (39.0-53.0) % RDW 18.8 H (11.5-15.5) % Neutrophils # 16.6 H (1.3-7.7) k/uL Carbon Dioxide 21 L (22-30) mmol/L BUN 39 H (9-20) mg/dL Creatinine 1.65 H (0.66-1.25) mg/dL Glucose 166 H (74-99) mg/dL POC Glucose (mg/dL) (75-99) mg/dL Urine Protein 2+ H (Negative) Urine Blood Moderate H (Negative) Ur Leukocyte Esterase Large H (Negative) Urine RBC >182 H (0-5) /hpf Urine WBC 99 H (0-5) /hpf Urine WBC Clumps Few H (None) /hpf Urine Bacteria Few H (None) /hpf 05/20/20 Range/Units 20:56 WBC (3.8-10.6) k/uL Hgb (13.0-17.5) gm/dL Hct (39.0-53.0) % RDW (11.5-15.5) % Neutrophils # (1.3-7.7) k/uL Carbon Dioxide (22-30) mmol/L BUN (9-20) mg/dL Creatinine (0.66-1.25) mg/dL Glucose (74-99) mg/dL POC Glucose (mg/dL) 128 H (75-99) mg/dL Urine Protein (Negative) Urine Blood (Negative) Ur Leukocyte Esterase (Negative) Urine RBC (0-5) /hpf Urine WBC (0-5) /hpf Urine WBC Clumps (None) /hpf Urine Bacteria (None) /hpf Microbiology - Last 24 Hours (Table) 05/20/20 14:34 Urine Culture - Preliminary Urine,Voided Assessment and Plan Plan: Type 2 DM -Lispro insulin sliding scale, blood glucose monitoring -Check A1c Hypothyroidism -Continue with home levothyroxine Abnormal UA -Likely colonization in setting of chronic urinary retention Small bowel obstruction -Will defer management to surgical service Inoperable bladder ca -Patient notes that he has not been able to follow-up with Oncologists to schedule his Chemotherapy treatments as of yet -Oncology consult for suspicion of local spread with possible resultant obstruction Chronic kidney disease -Improved from baseline -Continue to monitor for now DVT prophylaxis -Lovenox
[2020-05-21] MEDS: LEVOTHYROXINE 50 MCG TAB PO SCH (05:20)
[2020-05-21 06:19] LABS: Anisocytosis Slight; Basophils # (A) 0.1 k/uL (0-0.2); Basophils % (A) 0 %; Eosinophils # (A) 0.1 k/uL (0-0.7); Eosinophils % (A) 0 %; HCT 32.1 % (39.0-53.0); HGB 9.7 gm/dL (13.0-17.5); Hypochromasia Marked; Lymphocytes % (A) 8 %; MCH 24.6 pg (25.0-35.0); MCHC 30.2 g/dL (31.0-37.0); MCV 81.4 fL (80.0-100.0); Mean Platelet Volume 6.8; Microcytosis Slight; Monocytes # (A) 0.6 k/uL (0-1.0); Monocytes % (A) 5 %; Neutrophils # (A) 10.7 k/uL (1.3-7.7); Neutrophils % (A) 85 %; Platelet Count 345 k/uL (150-450); RBC 3.94 m/uL (4.30-5.90); RDW 18.8 % (11.5-15.5); WBC 12.7 k/uL (3.8-10.6)
[2020-05-21 08:07] LABS: Glucose,Whole Blood 140 mg/dL (75-99)
[2020-05-21] MEDS: PANTOPRAZOLE 40 MG TABLET PO SCH (08:21)
[2020-05-21] MEDS ORDERED: ENOXAPARIN 40 MG/0.4 ML SYRINGE SQ SCH (09:00)
[2020-05-21] MEDS ORDERED: PANTOPRAZOLE 40 MG/10 ML VIAL IVP SCH (09:00)
[2020-05-21 10:19] LABS: African American GFR (CKD) 45.8 (60.0-200.0); Anion Gap 11.7 mmol/L (4.00-12.00); BUN/Creat Ratio 23.75 Ratio (12.00-20.00); Calcium 9.3 mg/dL (8.7-10.3); Carbon Dioxide 19.3 mmol/L (21.6-31.8); Non-African American GFR(CKD) 39.5 (60.0-200.0); Potassium 4.6 mmol/L (3.5-5.5)
[2020-05-21] MEDS: INSULIN ASPART (NovoLOG) 100 UNIT/ML VIAL SQ SCH ×4 (10:41→21:26)
[2020-05-21] MEDS: SERTRALINE 25 MG TAB PO SCH (11:37)
[2020-05-21 11:53] LABS: Glucose,Whole Blood 148 mg/dL (75-99)
--- NOTE | 2020-05-21 12:47 | P.PN ---
Subjective Progress Note Date: 05/21/20 CHIEF COMPLAINT: Bowel obstruction HISTORY OF PRESENT ILLNESS: Patient is being followed for colon obstruction. NG tube was not inserted due to patient's deviated septum. His abdomen is more distended today. He is complaining of lower abdominal pain. Denies any vomiting. He is not passing any gas and it has been 3 days since last bowel movement. He is afebrile. WBC is 12.7 hemoglobin 9.7. He is currently nothing by mouth. PHYSICAL EXAM: VITAL SIGNS: Reviewed. GENERAL: Well-developed in no acute distress. HEENT: No sclera icterus. Extraocular movements grossly intact. Moist buccal mucosa. Head is atraumatic, normocephalic. ABDOMEN: Firm and distended. More tenderness in the lower abdomen with palpation NEUROLOGIC: Alert and oriented. Cranial nerves II through XII grossly intact. ASSESSMENT: 1. Colon obstruction 2. History of bladder cancer with bilateral hydronephrosis status post nephrostomy tube placement 3. History of chronic kidney disease 4. Diabetes mellitus PLAN: -Patient is scheduled for exploratory laparotomy today with Dr. Garcia -Keep patient nothing by mouth Physician Executive Team Leader note has been reviewed by physician. Signing provider agrees with the documented findings, assessment, and plan of care. Objective - Vital Signs Vital signs: Vital Signs Temp 97.3 F L 05/21/20 06:45 Pulse 84 05/21/20 06:45 Resp 16 05/21/20 08:00 BP 122/69 05/21/20 06:45 Pulse Ox 97 05/21/20 06:45 Intake & Output 05/20/20 05/21/20 05/21/20 18:59 06:59 18:59 Intake Total 100 Output Total 300 150 Balance -200 -150 Weight 58.513 kg Intake: Oral 100 Output: Urine 300 150 Other: Voiding Method Ileal Conduit (Right) Ileal Conduit (Left) # Voids 1 - Labs CBC & Chem 7: 05/21/20 05:42 05/21/20 05:42 Labs: Abnormal Lab Results - Last 24 Hours (Table) 05/20/20 05/20/20 05/20/20 Range/Units 13:44 13:44 14:34 WBC 19.5 H (3.8-10.6) k/uL RBC (4.30-5.90) m/uL Hgb 11.1 L D (13.0-17.5) gm/dL Hct 35.5 L (39.0-53.0) % MCH (25.0-35.0) pg MCHC (31.0-37.0) g/dL RDW 18.8 H (11.5-15.5) % Neutrophils # 16.6 H (1.3-7.7) k/uL Chloride (96-109) mmol/L Carbon Dioxide 21 L (22-30) mmol/L BUN 39 H (9-20) mg/dL Creatinine 1.65 H (0.66-1.25) mg/dL Est GFR (CKD-EPI)AfAm (60.0-200.0) Est GFR (CKD-EPI)NonAf (60.0-200.0) BUN/Creatinine Ratio (12.00-20.00) Ratio Glucose 166 H (74-99) mg/dL POC Glucose (mg/dL) (75-99) mg/dL Urine Protein 2+ H (Negative) Urine Blood Moderate H (Negative) Ur Leukocyte Esterase Large H (Negative) Urine RBC >182 H (0-5) /hpf Urine WBC 99 H (0-5) /hpf Urine WBC Clumps Few H (None) /hpf Urine Bacteria Few H (None) /hpf 05/20/20 05/21/20 05/21/20 Range/Units 20:56 05:42 05:42 WBC 12.7 H (3.8-10.6) k/uL RBC 3.94 L (4.30-5.90) m/uL Hgb 9.7 L (13.0-17.5) gm/dL Hct 32.1 L (39.0-53.0) % MCH 24.6 L (25.0-35.0) pg MCHC 30.2 L (31.0-37.0) g/dL RDW 18.8 H (11.5-15.5) % Neutrophils # 10.7 H (1.3-7.7) k/uL Chloride 110 H (96-109) mmol/L Carbon Dioxide 19.3 L (22-30) mmol/L BUN 38.0 H (9-20) mg/dL Creatinine 1.6 H (0.66-1.25) mg/dL Est GFR (CKD-EPI)AfAm 45.8 L (60.0-200.0) Est GFR (CKD-EPI)NonAf 39.5 L (60.0-200.0) BUN/Creatinine Ratio 23.75 H (12.00-20.00) Ratio Glucose 127 H (74-99) mg/dL POC Glucose (mg/dL) 128 H (75-99) mg/dL Urine Protein (Negative) Urine Blood (Negative) Ur Leukocyte Esterase (Negative) Urine RBC (0-5) /hpf Urine WBC (0-5) /hpf Urine WBC Clumps (None) /hpf Urine Bacteria (None) /hpf 05/21/20 05/21/20 Range/Units 08:04 11:51 WBC (3.8-10.6) k/uL RBC (4.30-5.90) m/uL Hgb (13.0-17.5) gm/dL Hct (39.0-53.0) % MCH (25.0-35.0) pg MCHC (31.0-37.0) g/dL RDW (11.5-15.5) % Neutrophils # (1.3-7.7) k/uL Chloride (96-109) mmol/L Carbon Dioxide (22-30) mmol/L BUN (9-20) mg/dL Creatinine (0.66-1.25) mg/dL Est GFR (CKD-EPI)AfAm (60.0-200.0) Est GFR (CKD-EPI)NonAf (60.0-200.0) BUN/Creatinine Ratio (12.00-20.00) Ratio Glucose (74-99) mg/dL POC Glucose (mg/dL) 140 H 148 H (75-99) mg/dL Urine Protein (Negative) Urine Blood (Negative) Ur Leukocyte Esterase (Negative) Urine RBC (0-5) /hpf Urine WBC (0-5) /hpf Urine WBC Clumps (None) /hpf Urine Bacteria (None) /hpf Microbiology - Last 24 Hours (Table) 05/20/20 14:34 Urine Culture - Preliminary Urine,Voided
--- NOTE | 2020-05-21 14:19 | P.PN ---
Subjective Progress Note Date: 05/21/20 Ongoing complaints of abd pain, dry mouth, no BM or flatus. Could not pass NGT overnight. Surgery following. Objective - Vital Signs Vital signs: Vital Signs Temp 97.3 F L 05/21/20 06:45 Pulse 84 05/21/20 06:45 Resp 16 05/21/20 08:00 BP 122/69 05/21/20 06:45 Pulse Ox 97 05/21/20 06:45 Intake & Output 05/20/20 05/21/20 05/21/20 18:59 06:59 18:59 Intake Total 100 Output Total 300 150 Balance -200 -150 Weight 58.513 kg Intake: Oral 100 Output: Urine 300 150 Other: Voiding Method Ileal Conduit (Right) Ileal Conduit (Left) # Voids 1 - Exam Gen: awake, alert HEENT: normocephalic, atraumatic, good hearing acuity, moist mucous membranes Resp: good air exchange, breathing comfortably with no accessory muscle use CVS: good distal perfusion x 4, GI: Diffusely tender palpation, most in the left lower quadrant, very distended : no SPT, no CVAT, skelton catheter not present, bilateral nephrostomy tubes MSK: no pitting edema, no clubbing Neuro: non-focal, moving all extremities Psych: cooperative, euthymic mood - Labs CBC & Chem 7: 05/21/20 05:42 05/21/20 05:42 Labs: Abnormal Lab Results - Last 24 Hours (Table) 05/20/20 05/20/20 05/20/20 Range/Units 13:44 14:34 20:56 WBC 19.5 H (3.8-10.6) k/uL RBC (4.30-5.90) m/uL Hgb 11.1 L D (13.0-17.5) gm/dL Hct 35.5 L (39.0-53.0) % MCH (25.0-35.0) pg MCHC (31.0-37.0) g/dL RDW 18.8 H (11.5-15.5) % Neutrophils # 16.6 H (1.3-7.7) k/uL Chloride (96-109) mmol/L Carbon Dioxide (21.6-31.8) mmol/L BUN (9.0-27.0) mg/dL Creatinine (0.6-1.5) mg/dL Est GFR (CKD-EPI)AfAm (60.0-200.0) Est GFR (CKD-EPI)NonAf (60.0-200.0) BUN/Creatinine Ratio (12.00-20.00) Ratio Glucose (70-110) mg/dL POC Glucose (mg/dL) 128 H (75-99) mg/dL Urine Protein 2+ H (Negative) Urine Blood Moderate H (Negative) Ur Leukocyte Esterase Large H (Negative) Urine RBC >182 H (0-5) /hpf Urine WBC 99 H (0-5) /hpf Urine WBC Clumps Few H (None) /hpf Urine Bacteria Few H (None) /hpf 05/21/20 05/21/20 05/21/20 Range/Units 05:42 05:42 08:04 WBC 12.7 H (3.8-10.6) k/uL RBC 3.94 L (4.30-5.90) m/uL Hgb 9.7 L (13.0-17.5) gm/dL Hct 32.1 L (39.0-53.0) % MCH 24.6 L (25.0-35.0) pg MCHC 30.2 L (31.0-37.0) g/dL RDW 18.8 H (11.5-15.5) % Neutrophils # 10.7 H (1.3-7.7) k/uL Chloride 110 H (96-109) mmol/L Carbon Dioxide 19.3 L (21.6-31.8) mmol/L BUN 38.0 H (9.0-27.0) mg/dL Creatinine 1.6 H (0.6-1.5) mg/dL Est GFR (CKD-EPI)AfAm 45.8 L (60.0-200.0) Est GFR (CKD-EPI)NonAf 39.5 L (60.0-200.0) BUN/Creatinine Ratio 23.75 H (12.00-20.00) Ratio Glucose 127 H (70-110) mg/dL POC Glucose (mg/dL) 140 H (75-99) mg/dL Urine Protein (Negative) Urine Blood (Negative) Ur Leukocyte Esterase (Negative) Urine RBC (0-5) /hpf Urine WBC (0-5) /hpf Urine WBC Clumps (None) /hpf Urine Bacteria (None) /hpf 05/21/20 Range/Units 11:51 WBC (3.8-10.6) k/uL RBC (4.30-5.90) m/uL Hgb (13.0-17.5) gm/dL Hct (39.0-53.0) % MCH (25.0-35.0) pg MCHC (31.0-37.0) g/dL RDW (11.5-15.5) % Neutrophils # (1.3-7.7) k/uL Chloride (96-109) mmol/L Carbon Dioxide (21.6-31.8) mmol/L BUN (9.0-27.0) mg/dL Creatinine (0.6-1.5) mg/dL Est GFR (CKD-EPI)AfAm (60.0-200.0) Est GFR (CKD-EPI)NonAf (60.0-200.0) BUN/Creatinine Ratio (12.00-20.00) Ratio Glucose (70-110) mg/dL POC Glucose (mg/dL) 148 H (75-99) mg/dL Urine Protein (Negative) Urine Blood (Negative) Ur Leukocyte Esterase (Negative) Urine RBC (0-5) /hpf Urine WBC (0-5) /hpf Urine WBC Clumps (None) /hpf Urine Bacteria (None) /hpf Microbiology - Last 24 Hours (Table) 05/20/20 14:34 Urine Culture - Preliminary Urine,Voided Assessment and Plan Assessment: 1. Small vs Large Bowel Obstruction 2. DM, Type II 3. 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 CKD III 5. Hypothyroidism 80 year old man with bladder obstruction due to cancer warranting b/l nephrostomy tubes presented initially for abdominal pain and leaking tubes, hwoever, was noted to have distended and painful abdomen with evidence of obstruction on imaging; surgery admitted with medicine consult for further treatment. Type 2 DM -Lispro insulin sliding scale, blood glucose monitoring -Check A1c Hypothyroidism -Continue with home levothyroxine Abnormal UA -Likely colonization in setting of chronic urinary retention Small bowel obstruction -Will defer management to surgical service -Ex Lap today 05/21 Inoperable bladder ca -Patient notes that he has not been able to follow-up with Oncologists to schedule his Chemotherapy treatments as of yet -Oncology consult for suspicion of local spread with possible resultant obstruction Chronic kidney disease -Improved from baseline -Continue to monitor for now DVT prophylaxis -Lovenox
[2020-05-21 16:22] LABS: Hemoglobin A1C 7.6 % (4.0-6.0)
[2020-05-21 17:35] LABS: Glucose,Whole Blood 116 mg/dL (75-99)
[2020-05-21] MEDS: fentaNYL (PF) 50 MCG/ML 2 ML AMP IVP ONE ×4 (17:50→20:10)
[2020-05-21] MEDS ORDERED: LIDOCAINE 1% INJ 10MG/ML (20 ML MDV) ONE (18:10)
[2020-05-21] MEDS ORDERED: PROPOFOL 10 MG/ML 20 ML VIAL IV ONE (18:10)
[2020-05-21] MEDS ORDERED: fentaNYL (PF) 50 MCG/ML 2 ML AMP ONE (18:10)
[2020-05-21] MEDS ORDERED: HYDROmorphone (PF) 1 MG/ML ONE (18:10)
[2020-05-21] MEDS ORDERED: MIDAZOLAM 2 MG/2 ML VIAL ONE (18:10)
[2020-05-21] MEDS ORDERED: SUCCINYLCHOLINE CHLORIDE 100 MG/5 ML SYR IV ONE (18:10)
[2020-05-21] MEDS ORDERED: GLYCOPYRROLATE 0.2 MG/ML 2 ML VIAL ONE (18:10)
[2020-05-21] MEDS ORDERED: NEOSTIGMINE 1 MG/ML 10 ML VIAL ONE (18:10)
[2020-05-21] MEDS ORDERED: ROCURONIUM 10 MG/ML (10 ML VIAL) IV ONE (18:10)
[2020-05-21] MEDS ORDERED: SODIUM CHLORIDE 0.9% 1,000 ML IV ONE ×4 (18:12→20:43)
--- NOTE | 2020-05-21 19:24 | P.OP ---
Date of Procedure: 05/21/20 Preoperative Diagnosis: Colonic obstruction Postoperative Diagnosis: Carcinomatosis Colonic obstruction at sigmoid colon Procedure(s) Performed: Partial omentectomy Loop transverse colostomy Anesthesia: CODY Surgeon: Ryan Garcia Estimated Blood Loss (ml): 30 Pathology: other (Omentum) Condition: critical Disposition: PACU Description of Procedure: The patient's placed on the operating table in the supine position. He received general anesthesia. His abdomen was prepped and draped usual sterile fashion. There was entered through a midline incision. Upon entering the abdomen there was some serosanguineous ascites. This was aspirated. The patient appeared to have evidence of a colonic obstruction. The colon and small bowel were dilated. The sigmoid colon appeared to be obstructed. There is evidence of carcinomatosis. A portion of omentum was transected and sent to pathology. At this point decided to bring out a loop transverse colostomy. Suitable spot for the colostomy was chosen upper quadrant. The skin was incised in the fascia was then dissected in a cruciate fashion and the rectus abdominis was split and then the colon was brought up through the opening. The fascia was then closed loop #1 PDS suture. Skin closed rich. Colostomy then matured with 3-0 Vicryl suture. Patient top she will was sent to recovery in stable condition
--- NOTE | 2020-05-21 20:05 | P.CONS ---
History of Present Illness - Reason for Consult Consult date: 05/21/20 bladder carcinoma Requesting physician: Linda Quiles - Chief Complaint abd pain - History of Present Illness Mister Fung is a very pleasant patient of Dr. Guerrero initially seen in consult 12/12/19 when he presented with hematuria and lower abdominal pain. 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 CT AP 12/05/19 showed possible diverticulitis treated with antibiotics. Renal ultrasound mild left hydronephrosis. CT chest and abdomen confirmed left hydronephrosis with possible small fistula from mid sigmoid to the bladder. Colonoscopy 10/18/19 showed no evidence of fistula. Repeat cystoscopy with transurethral resection 12/13/19 showed high-grade urothelial carcinoma, lymphovascular invasion, muscularis propria extensively involved by tumor. Staging scans and bone scan showed no evidence of metastatic disease. Patient has had multiple complications. 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 Exploratory laparotomy 12/25/19 with plan for bladder resection, unfortunately found to have extensive adhesions between the bladder, sigmoid colon and anterior abdominal wall. The sigmoid colon biopsy showed involvement with carcinoma, 4 lymph nodes were negative. Surgery was aborted, recommended [facility] therapy. He was seen for his first office visit on 01/12/20. He was showing evidence of dehydration and SIRS, sent to the emergency room. CT showed a 9+ centimeter diverticular abscess adjacent to the sigmoid colon. Drain was placed, cultures grew multiple organisms. Patient was treated, improved slowly and discharged to [facility]. Readmitted early January with GI bleed and EGD showing a large antral ulcer. Treated supportively. Patient had a restaging PET scan. No evidence of metastatic disease, uptake essentially only in the bladder. Patient was noted though to have bilateral pleural effusions, marked renal insufficiency. Patient was treated then seen in the office 03/14/20 and sent to the emergency room again for acute kidney injury, fluid retention and anemia. He had short- term dialysis, nephrostomy tube placed with improvement. Dialysis was event ually discontinued. He was readmitted early March with progressive weakness, decreased appetite and dehydration. Also suspect UTI, improved with antibiotics and hydration. Patient was seen later in March with improvement in appetite and energy levels. Urostomy was functioning well. Plan was to begin treatment. 05/08/20 Patient came in for chemotherapy teaching. He had about 2 good weeks and stated that he just started going downhill again. No appetite, weakness, sleeping up to 15 hours a day, he was needing the percutaneous nephrostomy drains changed as they were irritating him and starting to fray. He was given Megace for appetite stimulation, nystatin for oral thrush. After discussion with primary oncologist recommendation was for restaging scans since he had been so long without getting any treatment. Due to his symptoms start of chemotherapy was held. Patient is being seen today due to progressive abdominal pain and distention and his Hx of bladder carcinoma. He denied fever but notes poor appetite, no recent vomiting, chest pain, difficulty in breathing, his weakness is moderate to severe. Review of Systems 10 point review systems is as stated in HPI Past Medical History Past Medical History: Cancer, Diabetes Mellitus, Hypertension Additional Past Medical History / Comment(s): shortness of breath, bowel and bladder ca, kidney failure and had dialysis a few months ago. History of Any Multi-Drug Resistant Organisms: None Reported Past Surgical History: Back Surgery Additional Past Surgical History / Comment(s): hand surgery. back surgery with 4 screws and 2 rods currently had surgery for cancer on bladder on on the outside of his colon, has drain to LLQ abdomen, hx. of bleeding ulcer & sepsis. nephrotomy tubes. Past Anesthesia/Blood Transfusion Reactions: No Reported Reaction Additional Past Anesthesia/Blood Transfusion Reaction / Comm: son allergic to one type of anesthesia Past Psychological History: No Psychological Hx Reported Smoking Status: Former smoker Past Alcohol Use History: None Reported Past Drug Use History: None Reported - Past Family History Mother Family Medical History: Unable to Obtain Additional Family Medical History / Comment(s): adopted Medications and Allergies Home Medications Medication Instructions Recorded Confirmed Type Levothyroxine Sodium [Synthroid] 50 mcg PO DAILY 10/10/19 05/20/20 History Pantoprazole Sodium [Protonix] 20 mg PO DAILY 04/05/20 05/20/20 History Sertraline [Zoloft] 25 mg PO DAILY 04/05/20 05/20/20 History HYDROcodone/APAP 5-325MG [[place] 1 tab PO TID PRN 05/09/20 05/20/20 History 5-325] Insulin Aspart [NovoLOG Flexpen] See Protocol SQ AC-TID 05/20/20 05/20/20 History Megestrol [Megace] 80 mg PO DAILY 05/20/20 05/20/20 History Nystatin 100,000 Unit/ml Susp 400,000 unit PO QID 05/20/20 05/20/20 History [Mycostatin Oral Susp] Allergies Allergy/AdvReac Type Severity Reaction Status Date / Time ciprofloxacin [From Cipro] Allergy Swelling Verified 05/20/20 15:40 propoxyphene [From Darvon] Allergy Hallucinati Verified 05/20/20 15:40 ons Iodinated Contrast Media AdvReac Dyspnea Verified 05/20/20 15:40 [Iodinated Contrast- Oral and IV Dye] Physical Exam Vitals: Vital Signs Temp Pulse Pulse Resp BP BP Pulse Ox 05/21/20 06:45 97.3 F L 84 17 122/69 97 05/21/20 02:00 98.0 F 89 16 120/72 98 05/20/20 20:00 97.6 F 72 16 165/72 99 05/20/20 17:21 97.6 F 72 18 165/72 99 05/20/20 17:16 74 18 118/91 98 05/20/20 16:44 98 16 144/75 96 05/20/20 12:33 97.6 F 106 H 18 126/75 98 Intake and Output 05/20/20 05/21/20 05/21/20 22:59 06:59 14:59 Intake Total 100 Output Total 175 125 Balance -175 -25 Intake: Oral 100 Output: Urine 175 125 Other: Voiding Method Ileal Conduit (Right) Ileal Conduit (Left) # Voids 1 Weight 58.513 kg - Constitutional General appearance: average body habitus, cooperative, mild distress - EENT Eyes: anicteric sclerae, edentulous ENT: hearing grossly normal, normal oropharynx - Neck Neck: no lymphadenopathy - Respiratory Respiratory: bilateral: CTA - Cardiovascular Heart sounds: normal: S1, S2 Abnormal Heart Sounds: no systolic murmur, no diastolic murmur, no rub, no S3 Gallop, no S4 Gallop, no click, no other leg Peripheral Edema: bilateral: None - Gastrointestinal General gastrointestinal: no absent bowel sounds, decreased bowel sounds, distended, no hepatomegaly, no hyperactive bowel sounds, no normal bowel sounds, no organomegaly, no rigid, no scaphoid, no soft, no splenomegaly, tenderness, no umbilical hernia, no ventral hernia - Integumentary Integumentary: pale - Neurologic Neurologic: CNII-XII intact - Musculoskeletal Musculoskeletal: generalized weakness - Psychiatric Psychiatric: A&O x's 3, appropriate affect, intact judgment & insight Results CBC & Chem 7: 05/21/20 05:42 05/21/20 05:42 Labs: Abnormal Lab Results - Last 24 Hours (Table) 05/20/20 05/20/20 05/20/20 Range/Units 13:44 13:44 14:34 WBC 19.5 H (3.8-10.6) k/uL RBC (4.30-5.90) m/uL Hgb 11.1 L D (13.0-17.5) gm/dL Hct 35.5 L (39.0-53.0) % MCH (25.0-35.0) pg MCHC (31.0-37.0) g/dL RDW 18.8 H (11.5-15.5) % Neutrophils # 16.6 H (1.3-7.7) k/uL Carbon Dioxide 21 L (22-30) mmol/L BUN 39 H (9-20) mg/dL Creatinine 1.65 H (0.66-1.25) mg/dL Glucose 166 H (74-99) mg/dL POC Glucose (mg/dL) (75-99) mg/dL Urine Protein 2+ H (Negative) Urine Blood Moderate H (Negative) Ur Leukocyte Esterase Large H (Negative) Urine RBC >182 H (0-5) /hpf Urine WBC 99 H (0-5) /hpf Urine WBC Clumps Few H (None) /hpf Urine Bacteria Few H (None) /hpf 05/20/20 05/21/20 05/21/20 Range/Units 20:56 05:42 08:04 WBC 12.7 H (3.8-10.6) k/uL RBC 3.94 L (4.30-5.90) m/uL Hgb 9.7 L (13.0-17.5) gm/dL Hct 32.1 L (39.0-53.0) % MCH 24.6 L (25.0-35.0) pg MCHC 30.2 L (31.0-37.0) g/dL RDW 18.8 H (11.5-15.5) % Neutrophils # 10.7 H (1.3-7.7) k/uL Carbon Dioxide (22-30) mmol/L BUN (9-20) mg/dL Creatinine (0.66-1.25) mg/dL Glucose (74-99) mg/dL POC Glucose (mg/dL) 128 H 140 H (75-99) mg/dL Urine Protein (Negative) Urine Blood (Negative) Ur Leukocyte Esterase (Negative) Urine RBC (0-5) /hpf Urine WBC (0-5) /hpf Urine WBC Clumps (None) /hpf Urine Bacteria (None) /hpf Microbiology - Last 24 Hours (Table) 05/20/20 14:34 Urine Culture - Preliminary Urine,Voided CT scan - abdomen: report reviewed CT scan - pelvis: report reviewed Assessment and Plan (1) Bowel obstruction Narrative/Plan: Patient is likely going to require a palliative diverting ostomy for obstruction secondary to malignancy. Pending Dr. Garcia's evaluation and plan Current Visit: Yes Status: Acute Priority: High Code(s): K56.609 - UNSP INTESTNL OBST, UNSP TO PARTIAL VERSUS COMPLETE OBST SNOMED Code(s): 73638395 (2) Urothelial carcinoma of bladder Narrative/Plan: Patient was going to start some treatment last week but, unfortunately he presented with recurrence of symptoms such as fatigue, weakness. He was not maxim dy to begin therapy at that time. After palliative surgery, will have a discussion with the patient and the family to clarify goals. Pt is not a candidate for treatment post op for at least 3-4 weeks (carbo/gemzar was planned). Current Visit: Yes Status: Acute Priority: High Code(s): C67.9 - MALIGNANT NEOPLASM OF BLADDER, UNSPECIFIED SNOMED Code(s): 297258435 Plan: Doctor attests: I performed a history and physical examination of this patient, developed impression and plan of care, discussed with dictator. I agree with dictators note, documented as a scribe.
[2020-05-21 20:30] LABS: Glucose,Whole Blood 134 mg/dL (75-99)
[2020-05-21 21:09] LABS: Glucose,Whole Blood 157 mg/dL (75-99)
[2020-05-22] MEDS: HYDROmorphone 1 MG/ML 1 ML SYRINGE IVP PRN ×3 (01:01→23:39)
[2020-05-22] MEDS: HYDROmorphone 1 MG/ML 1 ML SYRINGE IVP SCH ×3 (02:50→09:04)
[2020-05-22] MEDS: LEVOTHYROXINE 50 MCG TAB PO SCH (05:06)
[2020-05-22 08:08] LABS: Glucose,Whole Blood 160 mg/dL (75-99)
[2020-05-22] MEDS: PIPERACILLIN-TAZOBACTAM 3.375 GM in SODIUM CHLORIDE 0.9% 100 ML IVPB SCH ×3 (08:28→23:41)
[2020-05-22] MEDS: INSULIN ASPART (NovoLOG) 100 UNIT/ML VIAL SQ SCH ×4 (08:29→22:53)
[2020-05-22] MEDS: ENOXAPARIN 40 MG/0.4 ML SYRINGE SQ SCH (08:30)
[2020-05-22] MEDS: SODIUM CHLORIDE 0.9% 1,000 ML IV SCH ×2 (08:30→17:57)
[2020-05-22] MEDS: SERTRALINE 25 MG TAB PO SCH (08:35)
[2020-05-22] MEDS: PANTOPRAZOLE 40 MG TABLET PO SCH (08:35)
[2020-05-22] MEDS ORDERED: ENOXAPARIN 30 MG/0.3 ML SYRINGE SQ SCH (09:00)
[2020-05-22 09:01] LABS: Anisocytosis Slight; Basophils % (A) 0 %; Eosinophils % (A) 0 %; HCT 31.5 % (39.0-53.0); HGB 9.5 gm/dL (13.0-17.5); Hypochromasia Marked; Lymphocytes # (A) 0.7 k/uL (1.0-4.8); Lymphocytes % (A) 4 %; MCH 25.2 pg (25.0-35.0); MCHC 30.3 g/dL (31.0-37.0); MCV 83.2 fL (80.0-100.0); Microcytosis Slight; Monocytes # (A) 0.7 k/uL (0-1.0); Monocytes % (A) 4 %; Neutrophils # (A) 18.4 k/uL (1.3-7.7); Neutrophils % (A) 92 %; Platelet Count 326 k/uL (150-450); RBC 3.78 m/uL (4.30-5.90); RDW 19.1 % (11.5-15.5); WBC 20.1 k/uL (3.8-10.6)
[2020-05-22 09:30] LABS: ALT 16 U/L (4-49); AST 33 U/L (17-59); African American GFR (CKD) 32 (>60 ml/min/1.73 sqM); Albumin 3.3 g/dL (3.5-5.0); Albumin/Globulin Ratio 1.1; Alkaline Phosphatase 76 U/L (38-126); Anion Gap 11 mmol/L; Blood Urea Nitrogen 41 mg/dL (9-20); Carbon Dioxide 16 mmol/L (22-30); Chloride 114 mmol/L (98-107); Glucose 155 mg/dL (74-99); Non-African American GFR(CKD) 28 (>60 ml/min/1.73 sqM); Potassium 5.8 mmol/L (3.5-5.1); Sodium 141 mmol/L (137-145); Total Bilirubin 0.5 mg/dL (0.2-1.3); Total Protein 6.3 g/dL (6.3-8.2)
[2020-05-22] MEDS ORDERED: NALOXONE 0.4 MG/ML 1 ML VIAL IV PRN (09:40)
[2020-05-22] MEDS: HYDROmorphone PCA 10 MG/50 ML BAG IV PRN (11:01)
[2020-05-22 11:27] LABS: Glucose,Whole Blood 123 mg/dL (75-99)
--- NOTE | 2020-05-22 11:43 | P.PN ---
Subjective Progress Note Date: 05/22/20 CHIEF COMPLAINT: Bowel obstruction HISTORY OF PRESENT ILLNESS: Patient is postop day #1 status post partial omentectomy and loop transverse colostomy for carcinomatosis and colonic obstruction at sigmoid colon. Patient is still complaining of a lot of abdominal pain. He reports his pain was not controlled with current pain regimen. There is stool and gas present throughout his ostomy. He is currently nothing by mouth is receiving IV fluids and IV Zosyn for antibiotics. Medicine service has added a Dilaudid [employer]IST to help with pain control. Patient denies any nausea or vomiting. He did pull his NG tube out during the night. Patient followed by nephrology and patient will likely get nephrostomy tube replaced today PHYSICAL EXAM: VITAL SIGNS: Reviewed. GENERAL: Well-developed in no acute distress. HEENT: No sclera icterus. Extraocular movements grossly intact. Moist buccal mucosa. Head is atraumatic, normocephalic. ABDOMEN: Distended but less distended than yesterday. Pain with light palpation of the entire abdomen. Dressing clean dry and intact. Stool and gas present in ostomy NEUROLOGIC: Alert and oriented. Cranial nerves II through XII grossly intact. ASSESSMENT: 1. Colonic obstruction of sigmoid colon and carcinomatosis status post partial omentectomy and loop transverse colostomy 2. History of bladder cancer with bilateral hydronephrosis status post nephrostomy tube placement 3. History of chronic kidney disease 4. Diabetes mellitus PLAN: -Keep patient nothing by mouth except for ice chips and popsicles -Agree with Dilaudid [employer] SPECIALIST to help with pain control -And IV morphine as needed for breakthrough pain -Continue IV fluids -Continue IV antibiotics -Follow up on pathology result Physician Personal Companion note has been reviewed by physician. Signing provider agrees with the documented findings, assessment, and plan of care. Objective - Vital Signs Vital signs: Vital Signs Temp 98.4 F 05/22/20 08:00 Pulse 101 H 05/22/20 08:00 Resp 20 05/22/20 08:00 BP 130/74 05/22/20 08:00 Pulse Ox 97 05/22/20 08:00 Intake & Output 05/21/20 05/22/20 05/22/20 18:59 06:59 18:59 Intake Total 1100 125 Output Total 150 495 Balance 950 -370 Weight 58.513 kg Intake: IV 1100 125 Output: Gastric Drainage 50 Urine 150 420 Estimated Blood Loss 25 - Labs CBC & Chem 7: 05/22/20 08:38 05/22/20 08:38 Labs: Abnormal Lab Results - Last 24 Hours (Table) 05/21/20 05/21/20 05/21/20 Range/Units 05:42 11:51 17:20 WBC (3.8-10.6) k/uL RBC (4.30-5.90) m/uL Hgb (13.0-17.5) gm/dL Hct (39.0-53.0) % MCHC (31.0-37.0) g/dL RDW (11.5-15.5) % Neutrophils # (1.3-7.7) k/uL Lymphocytes # (1.0-4.8) k/uL Potassium (3.5-5.1) mmol/L Chloride (98-107) mmol/L Carbon Dioxide (22-30) mmol/L BUN (9-20) mg/dL Creatinine (0.66-1.25) mg/dL Glucose (74-99) mg/dL POC Glucose (mg/dL) 148 H 116 H (75-99) mg/dL Hemoglobin A1c 7.6 H (4.0-6.0) % Albumin (3.5-5.0) g/dL 05/21/20 05/21/20 05/22/20 Range/Units 20:29 21:07 08:06 WBC (3.8-10.6) k/uL RBC (4.30-5.90) m/uL Hgb (13.0-17.5) gm/dL Hct (39.0-53.0) % MCHC (31.0-37.0) g/dL RDW (11.5-15.5) % Neutrophils # (1.3-7.7) k/uL Lymphocytes # (1.0-4.8) k/uL Potassium (3.5-5.1) mmol/L Chloride (98-107) mmol/L Carbon Dioxide (22-30) mmol/L BUN (9-20) mg/dL Creatinine (0.66-1.25) mg/dL Glucose (74-99) mg/dL POC Glucose (mg/dL) 134 H 157 H 160 H (75-99) mg/dL Hemoglobin A1c (4.0-6.0) % Albumin (3.5-5.0) g/dL 05/22/20 05/22/20 05/22/20 Range/Units 08:38 08:38 11:22 WBC 20.1 H (3.8-10.6) k/uL RBC 3.78 L (4.30-5.90) m/uL Hgb 9.5 L (13.0-17.5) gm/dL Hct 31.5 L (39.0-53.0) % MCHC 30.3 L (31.0-37.0) g/dL RDW 19.1 H (11.5-15.5) % Neutrophils # 18.4 H (1.3-7.7) k/uL Lymphocytes # 0.7 L (1.0-4.8) k/uL Potassium 5.8 H (3.5-5.1) mmol/L Chloride 114 H (98-107) mmol/L Carbon Dioxide 16 L (22-30) mmol/L BUN 41 H (9-20) mg/dL Creatinine 2.15 H (0.66-1.25) mg/dL Glucose 155 H (74-99) mg/dL POC Glucose (mg/dL) 123 H (75-99) mg/dL Hemoglobin A1c (4.0-6.0) % Albumin 3.3 L (3.5-5.0) g/dL Microbiology - Last 24 Hours (Table) 05/20/20 16:12 Blood Culture - Preliminary Blood No Growth after 24 hours 05/20/20 14:34 Urine Culture - Preliminary Urine,Voided Group D Enterococcus
--- NOTE | 2020-05-22 11:57 | P.PN ---
Subjective Progress Note Date: 05/22/20 Pt continues to report significant pain, especially across the lower abdomen. POD#1 s/p diverting loop colostomy and omental resection. Objective - Vital Signs Vital signs: Vital Signs Temp 98.4 F 05/22/20 08:00 Pulse 101 H 05/22/20 08:00 Resp 20 05/22/20 08:00 BP 130/74 05/22/20 08:00 Pulse Ox 97 05/22/20 08:00 Intake & Output 05/21/20 05/22/20 05/22/20 18:59 06:59 18:59 Intake Total 1100 125 Output Total 150 495 Balance 950 -370 Weight 58.513 kg Intake: IV 1100 125 Output: Gastric Drainage 50 Urine 150 420 Estimated Blood Loss 25 - Exam Gen: awake, alert HEENT: normocephalic, atraumatic, good hearing acuity, moist mucous membranes Resp: good air exchange, breathing comfortably with no accessory muscle use CVS: good distal perfusion x 4, GI: Diffusely tender palpation, most in the left lower quadrant, very distended : no SPT, no CVAT, skelton catheter not present, bilateral nephrostomy tubes MSK: no pitting edema, no clubbing Neuro: non-focal, moving all extremities Psych: cooperative, euthymic mood - Labs CBC & Chem 7: 05/22/20 08:38 05/22/20 08:38 Labs: Abnormal Lab Results - Last 24 Hours (Table) 05/21/20 05/21/20 05/21/20 Range/Units 05:42 17:20 20:29 WBC (3.8-10.6) k/uL RBC (4.30-5.90) m/uL Hgb (13.0-17.5) gm/dL Hct (39.0-53.0) % MCHC (31.0-37.0) g/dL RDW (11.5-15.5) % Neutrophils # (1.3-7.7) k/uL Lymphocytes # (1.0-4.8) k/uL Potassium (3.5-5.1) mmol/L Chloride (98-107) mmol/L Carbon Dioxide (22-30) mmol/L BUN (9-20) mg/dL Creatinine (0.66-1.25) mg/dL Glucose (74-99) mg/dL POC Glucose (mg/dL) 116 H 134 H (75-99) mg/dL Hemoglobin A1c 7.6 H (4.0-6.0) % Albumin (3.5-5.0) g/dL 05/21/20 05/22/20 05/22/20 Range/Units 21:07 08:06 08:38 WBC 20.1 H (3.8-10.6) k/uL RBC 3.78 L (4.30-5.90) m/uL Hgb 9.5 L (13.0-17.5) gm/dL Hct 31.5 L (39.0-53.0) % MCHC 30.3 L (31.0-37.0) g/dL RDW 19.1 H (11.5-15.5) % Neutrophils # 18.4 H (1.3-7.7) k/uL Lymphocytes # 0.7 L (1.0-4.8) k/uL Potassium (3.5-5.1) mmol/L Chloride (98-107) mmol/L Carbon Dioxide (22-30) mmol/L BUN (9-20) mg/dL Creatinine (0.66-1.25) mg/dL Glucose (74-99) mg/dL POC Glucose (mg/dL) 157 H 160 H (75-99) mg/dL Hemoglobin A1c (4.0-6.0) % Albumin (3.5-5.0) g/dL 05/22/20 05/22/20 Range/Units 08:38 11:22 WBC (3.8-10.6) k/uL RBC (4.30-5.90) m/uL Hgb (13.0-17.5) gm/dL Hct (39.0-53.0) % MCHC (31.0-37.0) g/dL RDW (11.5-15.5) % Neutrophils # (1.3-7.7) k/uL Lymphocytes # (1.0-4.8) k/uL Potassium 5.8 H (3.5-5.1) mmol/L Chloride 114 H (98-107) mmol/L Carbon Dioxide 16 L (22-30) mmol/L BUN 41 H (9-20) mg/dL Creatinine 2.15 H (0.66-1.25) mg/dL Glucose 155 H (74-99) mg/dL POC Glucose (mg/dL) 123 H (75-99) mg/dL Hemoglobin A1c (4.0-6.0) % Albumin 3.3 L (3.5-5.0) g/dL Microbiology - Last 24 Hours (Table) 05/20/20 16:12 Blood Culture - Preliminary Blood No Growth after 24 hours 05/20/20 14:34 Urine Culture - Preliminary Urine,Voided Group D Enterococcus Assessment and Plan Assessment: 1. Small vs Large Bowel Obstruction 2. DM, Type II 3. 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 CKD III 5. Hypothyroidism 80 year old man with bladder obstruction due to cancer warranting b/l nephrostomy tubes presented initially for abdominal pain and leaking tubes, hwoever, was noted to have distended and painful abdomen with evidence of obstruction on imaging; surgery admitted with medicine consult for further treatment. Type 2 DM -Lispro insulin sliding scale, blood glucose monitoring -Check A1c Hypothyroidism -Continue with home levothyroxine Abnormal UA -Likely colonization in setting of chronic urinary retention Small bowel obstruction -Will defer management to surgical service -Ex Lap today 05/21 Inoperable bladder ca -Patient notes that he has not been able to follow-up with Oncologists to schedule his Chemotherapy treatments as of yet -Oncology consult for suspicion of local spread with possible resultant obstruction Chronic kidney disease -Improved from baseline -Continue to monitor for now DVT prophylaxis -Lovenox
[2020-05-22] MEDS: ACETAMINOPHEN IV (For NPO) 1,000 MG in EMPTY BAG 1 BAG IVPB SCH ×3 (12:45→23:14)
--- NOTE | 2020-05-22 15:25 | P.PN ---
Subjective Progress Note Date: 05/22/20 Principal diagnosis: bowel obstruction Pt is very uncomfortable when seen, guarding surgical site, ostomy is pink, some clear red fluid noted, small flecks of matter visible Objective - Vital Signs Vital signs: Vital Signs Temp 98.4 F 05/22/20 08:00 Pulse 101 H 05/22/20 08:00 Resp 20 05/22/20 08:00 BP 130/74 05/22/20 08:00 Pulse Ox 97 05/22/20 09:41 Intake & Output 05/21/20 05/22/20 05/22/20 18:59 06:59 18:59 Intake Total 1100 125 Output Total 150 495 Balance 950 -370 Weight 58.513 kg Intake: IV 1100 125 Output: Gastric Drainage 50 Urine 150 420 Estimated Blood Loss 25 - Constitutional General appearance: Present: cooperative, severe distress, thin - EENT Eyes: Present: anicteric sclerae, EOMI ENT: Present: hearing grossly normal - Respiratory Respiratory: bilateral: CTA - Cardiovascular Details: tachy Heart sounds: normal: S1, S2 - Gastrointestinal Gastrointestinal Comment(s): midline incision dressing intact, small amt of blood on dressing noted, abd is not hot to touch General gastrointestinal: Present: tenderness - Integumentary Integumentary: Present: pale - Neurologic Neurologic: Present: CNII-XII intact - Musculoskeletal Musculoskeletal: Present: generalized weakness - Psychiatric Psychiatric: Present: A&O x's 3, appropriate affect, intact judgment & insight - Labs CBC & Chem 7: 05/22/20 08:38 05/22/20 08:38 Labs: Abnormal Lab Results - Last 24 Hours (Table) 05/21/20 05/21/20 05/21/20 Range/Units 05:42 17:20 20:29 WBC (3.8-10.6) k/uL RBC (4.30-5.90) m/uL Hgb (13.0-17.5) gm/dL Hct (39.0-53.0) % MCHC (31.0-37.0) g/dL RDW (11.5-15.5) % Neutrophils # (1.3-7.7) k/uL Lymphocytes # (1.0-4.8) k/uL Potassium (3.5-5.1) mmol/L Chloride (98-107) mmol/L Carbon Dioxide (22-30) mmol/L BUN (9-20) mg/dL Creatinine (0.66-1.25) mg/dL Glucose (74-99) mg/dL POC Glucose (mg/dL) 116 H 134 H (75-99) mg/dL Hemoglobin A1c 7.6 H (4.0-6.0) % Albumin (3.5-5.0) g/dL 05/21/20 05/22/20 05/22/20 Range/Units 21:07 08:06 08:38 WBC 20.1 H (3.8-10.6) k/uL RBC 3.78 L (4.30-5.90) m/uL Hgb 9.5 L (13.0-17.5) gm/dL Hct 31.5 L (39.0-53.0) % MCHC 30.3 L (31.0-37.0) g/dL RDW 19.1 H (11.5-15.5) % Neutrophils # 18.4 H (1.3-7.7) k/uL Lymphocytes # 0.7 L (1.0-4.8) k/uL Potassium (3.5-5.1) mmol/L Chloride (98-107) mmol/L Carbon Dioxide (22-30) mmol/L BUN (9-20) mg/dL Creatinine (0.66-1.25) mg/dL Glucose (74-99) mg/dL POC Glucose (mg/dL) 157 H 160 H (75-99) mg/dL Hemoglobin A1c (4.0-6.0) % Albumin (3.5-5.0) g/dL 05/22/20 05/22/20 Range/Units 08:38 11:22 WBC (3.8-10.6) k/uL RBC (4.30-5.90) m/uL Hgb (13.0-17.5) gm/dL Hct (39.0-53.0) % MCHC (31.0-37.0) g/dL RDW (11.5-15.5) % Neutrophils # (1.3-7.7) k/uL Lymphocytes # (1.0-4.8) k/uL Potassium 5.8 H (3.5-5.1) mmol/L Chloride 114 H (98-107) mmol/L Carbon Dioxide 16 L (22-30) mmol/L BUN 41 H (9-20) mg/dL Creatinine 2.15 H (0.66-1.25) mg/dL Glucose 155 H (74-99) mg/dL POC Glucose (mg/dL) 123 H (75-99) mg/dL Hemoglobin A1c (4.0-6.0) % Albumin 3.3 L (3.5-5.0) g/dL Microbiology - Last 24 Hours (Table) 05/20/20 16:12 Blood Culture - Preliminary Blood No Growth after 24 hours 05/20/20 14:34 Urine Culture - Preliminary Urine,Voided Group D Enterococcus Assessment and Plan (1) Bowel obstruction Narrative/Plan: Patient had palliative diverting ostomy with omentectomy. Hope procedure will help pt to feel better. Spoke with Surgical team and all specimens were involved with cancer. Current Visit: Yes Status: Acute Priority: High Code(s): K56.609 - UNSP INTESTNL OBST, UNSP TO PARTIAL VERSUS COMPLETE OBST SNOMED Code(s): 19055210 (2) Urothelial carcinoma of bladder Narrative/Plan: Patient was going to start some treatment last week but, unfortunately he presented with recurrence of symptoms such as fatigue, weakness. He was not ready to begin therapy at that time. This progressed to his current situation of bowel obstruction needing palliative surgery. After pt feeling better post op we will sched a discussion with the patient and the family to clarify goals. Pt is not a candidate for treatment post op for at least 3-4 weeks (carbo/gemzar was planned). Current Visit: Yes Status: Acute Priority: High Code(s): C67.9 - MALIGNANT NEOPLASM OF BLADDER, UNSPECIFIED SNOMED Code(s): 529620217
--- NOTE | 2020-05-22 15:35 | P.GSCN ---
History of Present Illness Consult date: 05/22/20 Reason for Consult: dislodged left nephrostomy tube History of present illness: Mr Pineda is an 80 yo male who is admitted to the hospital for bowel obstruction. He is S/P partial omentectomy and loop transverse colostomy for carcinomatosis and colonic obstruction at sigmoid colon. Patient has hx of muscle invasive bladder cancer, he underwent attempted radical cystectomy at [facility] but his tumor was deemed unresectable. He has hx of bilateral ureteral obstruction which are managed by PCN, when patient was transfered from the bed to the stretcher it was accidentally dislodged. He denies any flank pain, but complaing of sever abdominal pain near his incision. He is having good urine output from his right PCN. Review of Systems - Constitutional Denies fever, Denies weight loss - Cardiovascular Denies chest pain, Denies shortness of breath - Respiratory Denies cough, Denies 7 - Gastrointestinal Reports abdominal pain - Genitourinary Denies dysuria, Denies hematuria - Neurological Denies headaches, Denies syncope Past Medical History Past Medical History: Cancer, Diabetes Mellitus, Hypertension Additional Past Medical History / Comment(s): shortness of breath, bowel and suni dder ca, kidney failure and had dialysis a few months ago. History of Any Multi-Drug Resistant Organisms: None Reported Past Surgical History: Back Surgery Additional Past Surgical History / Comment(s): hand surgery. back surgery with 4 screws and 2 rods currently had surgery for cancer on bladder on on the outside of his colon, has drain to LLQ abdomen, hx. of bleeding ulcer & sepsis. nephrotomy tubes. Past Anesthesia/Blood Transfusion Reactions: No Reported Reaction Additional Past Anesthesia/Blood Transfusion Reaction / Comm: son allergic to one type of anesthesia Past Psychological History: No Psychological Hx Reported Smoking Status: Former smoker Past Alcohol Use History: None Reported Past Drug Use History: None Reported - Past Family History Mother Family Medical History: Unable to Obtain Additional Family Medical History / Comment(s): adopted Medications and Allergies Home Medications Medication Instructions Recorded Confirmed Type Levothyroxine Sodium [Synthroid] 50 mcg PO DAILY 10/10/19 05/20/20 History Pantoprazole Sodium [Protonix] 20 mg PO DAILY 04/05/20 05/20/20 History Sertraline [Zoloft] 25 mg PO DAILY 04/05/20 05/20/20 History HYDROcodone/APAP 5-325MG [[place] 1 tab PO TID PRN 05/09/20 05/20/20 History 5-325] Insulin Aspart [NovoLOG Flexpen] See Protocol SQ AC-TID 05/20/20 05/20/20 History Megestrol [Megace] 80 mg PO DAILY 05/20/20 05/20/20 History Nystatin 100,000 Unit/ml Susp 400,000 unit PO QID 05/20/20 05/20/20 History [Mycostatin Oral Susp] Allergies Allergy/AdvReac Type Severity Reaction Status Date / Time ciprofloxacin [From Cipro] Allergy Swelling Verified 05/20/20 15:40 propoxyphene [From Darvon] Allergy Hallucinati Verified 05/20/20 15:40 ons Iodinated Contrast Media AdvReac Dyspnea Verified 05/20/20 15:40 [Iodinated Contrast- Oral and IV Dye] Surgical - Exam Vital Signs Temp Pulse Resp BP Pulse Ox 97.6 F 106 H 18 126/75 98 05/20/20 12:33 05/20/20 12:33 05/20/20 12:33 05/20/20 12:33 05/20/20 12:33 - General well developed, well nourished, moderate distress, severe pain - Eyes PERRL, normal ocular movement - ENT normal nares, normal mucosa - Respiratory normal expansion, normal respiratory effort - Abdomen Abdomen: soft, tender - Psychiatric oriented to time, oriented to person, oriented to place Results - Labs 05/22/20 08:38 05/22/20 08:38 Abnormal Lab Results - Last 24 Hours (Table) 05/21/20 05/21/20 05/21/20 Range/Units 05:42 17:20 20:29 WBC (3.8-10.6) k/uL RBC (4.30-5.90) m/uL Hgb (13.0-17.5) gm/dL Hct (39.0-53.0) % MCHC (31.0-37.0) g/dL RDW (11.5-15.5) % Neutrophils # (1.3-7.7) k/uL Lymphocytes # (1.0-4.8) k/uL Potassium (3.5-5.1) mmol/L Chloride (98-107) mmol/L Carbon Dioxide (22-30) mmol/L BUN (9-20) mg/dL Creatinine (0.66-1.25) mg/dL Glucose (74-99) mg/dL POC Glucose (mg/dL) 116 H 134 H (75-99) mg/dL Hemoglobin A1c 7.6 H (4.0-6.0) % Albumin (3.5-5.0) g/dL 05/21/20 05/22/20 05/22/20 Range/Units 21:07 08:06 08:38 WBC 20.1 H (3.8-10.6) k/uL RBC 3.78 L (4.30-5.90) m/uL Hgb 9.5 L (13.0-17.5) gm/dL Hct 31.5 L (39.0-53.0) % MCHC 30.3 L (31.0-37.0) g/dL RDW 19.1 H (11.5-15.5) % Neutrophils # 18.4 H (1.3-7.7) k/uL Lymphocytes # 0.7 L (1.0-4.8) k/uL Potassium (3.5-5.1) mmol/L Chloride (98-107) mmol/L Carbon Dioxide (22-30) mmol/L BUN (9-20) mg/dL Creatinine (0.66-1.25) mg/dL Glucose (74-99) mg/dL POC Glucose (mg/dL) 157 H 160 H (75-99) mg/dL Hemoglobin A1c (4.0-6.0) % Albumin (3.5-5.0) g/dL 05/22/20 05/22/20 Range/Units 08:38 11:22 WBC (3.8-10.6) k/uL RBC (4.30-5.90) m/uL Hgb (13.0-17.5) gm/dL Hct (39.0-53.0) % MCHC (31.0-37.0) g/dL RDW (11.5-15.5) % Neutrophils # (1.3-7.7) k/uL Lymphocytes # (1.0-4.8) k/uL Potassium 5.8 H (3.5-5.1) mmol/L Chloride 114 H (98-107) mmol/L Carbon Dioxide 16 L (22-30) mmol/L BUN 41 H (9-20) mg/dL Creatinine 2.15 H (0.66-1.25) mg/dL Glucose 155 H (74-99) mg/dL POC Glucose (mg/dL) 123 H (75-99) mg/dL Hemoglobin A1c (4.0-6.0) % Albumin 3.3 L (3.5-5.0) g/dL Microbiology - Last 24 Hours (Table) 05/20/20 16:12 Blood Culture - Preliminary Blood No Growth after 24 hours 05/20/20 14:34 Urine Culture - Preliminary Urine,Voided Group D Enterococcus Diabetes panel 05/21/20 05/22/20 Range/Units 05:42 08:38 Sodium 141 (137-145) mmol/L Potassium 5.8 H (3.5-5.1) mmol/L Chloride 114 H (98-107) mmol/L Carbon Dioxide 16 L (22-30) mmol/L BUN 41 H (9-20) mg/dL Creatinine 2.15 H (0.66-1.25) mg/dL Glucose 155 H (74-99) mg/dL Hemoglobin A1c 7.6 H (4.0-6.0) % Calcium 9.0 (8.4-10.2) mg/dL AST 33 (17-59) U/L ALT 16 (4-49) U/L Alkaline Phosphatase 76 (38-126) U/L Total Protein 6.3 (6.3-8.2) g/dL Albumin 3.3 L (3.5-5.0) g/dL Calcium panel 05/22/20 Range/Units 08:38 Calcium 9.0 (8.4-10.2) mg/dL Albumin 3.3 L (3.5-5.0) g/dL Pituitary panel 05/22/20 Range/Units 08:38 Sodium 141 (137-145) mmol/L Potassium 5.8 H (3.5-5.1) mmol/L Chloride 114 H (98-107) mmol/L Carbon Dioxide 16 L (22-30) mmol/L BUN 41 H (9-20) mg/dL Creatinine 2.15 H (0.66-1.25) mg/dL Glucose 155 H (74-99) mg/dL Calcium 9.0 (8.4-10.2) mg/dL Adrenal panel 05/22/20 Range/Units 08:38 Sodium 141 (137-145) mmol/L Potassium 5.8 H (3.5-5.1) mmol/L Chloride 114 H (98-107) mmol/L Carbon Dioxide 16 L (22-30) mmol/L BUN 41 H (9-20) mg/dL Creatinine 2.15 H (0.66-1.25) mg/dL Glucose 155 H (74-99) mg/dL Calcium 9.0 (8.4-10.2) mg/dL Total Bilirubin 0.5 (0.2-1.3) mg/dL AST 33 (17-59) U/L ALT 16 (4-49) U/L Alkaline Phosphatase 76 (38-126) U/L Total Protein 6.3 (6.3-8.2) g/dL Albumin 3.3 L (3.5-5.0) g/dL Assessment and Plan Assessment: 80 yo male with hx of muscle invasive bladder cancer and bilateral hydronephrosis. His hydronephrosis is managed by bilateral PCN, Left PCN was accidently dislodged -Patient will need left PCN reinserted, patient declined to have this done today secondary to abdominal pain and inability to lie in prone position. Discussed with him he will most likely have worsening of kidney function by delaying PCN placement, he understood risk. At this time will continue to monitor his renal function. WIll have IR reattempt PCN placement when patient pain is more controlled
[2020-05-22 17:19] LABS: Glucose,Whole Blood 116 mg/dL (75-99)
[2020-05-22 20:16] LABS: Glucose,Whole Blood 114 mg/dL (75-99)
[2020-05-23] MEDS: ACETAMINOPHEN IV (For NPO) 1,000 MG in EMPTY BAG 1 BAG IVPB SCH (04:27)
[2020-05-23] MEDS: SODIUM CHLORIDE 0.9% 1,000 ML IV SCH ×2 (04:29→15:09)
[2020-05-23] MEDS: INSULIN ASPART (NovoLOG) 100 UNIT/ML VIAL SQ SCH ×4 (08:25→22:29)
[2020-05-23 08:26] LABS: Anisocytosis Slight; HCT 30.6 % (39.0-53.0); Hypochromasia Marked; MCHC 29.4 g/dL (31.0-37.0); Mean Platelet Volume 7.2; Platelet Count 305 k/uL (150-450); RDW 19.1 % (11.5-15.5); WBC 18.3 k/uL (3.8-10.6)
[2020-05-23 08:35] LABS: African American GFR (CKD) 31 (>60 ml/min/1.73 sqM); Anion Gap 12 mmol/L; Blood Urea Nitrogen 45 mg/dL (9-20); Carbon Dioxide 12 mmol/L (22-30); Chloride 116 mmol/L (98-107); Glucose 107 mg/dL (74-99); Non-African American GFR(CKD) 27 (>60 ml/min/1.73 sqM); Sodium 140 mmol/L (137-145)
[2020-05-23] MEDS: PIPERACILLIN-TAZOBACTAM 3.375 GM in SODIUM CHLORIDE 0.9% 100 ML IVPB SCH ×2 (08:40→15:10)
[2020-05-23] MEDS: SERTRALINE 25 MG TAB PO SCH (08:40)
[2020-05-23] MEDS: LEVOTHYROXINE 50 MCG TAB PO SCH (08:40)
[2020-05-23] MEDS: PANTOPRAZOLE 40 MG TABLET PO SCH (08:40)
[2020-05-23] MEDS: ENOXAPARIN 40 MG/0.4 ML SYRINGE SQ SCH (08:40)
[2020-05-23 09:06] LABS: Potassium 5.7 mmol/L (3.5-5.1)
[2020-05-23] MEDS: MORPHINE SULFATE 4 MG/ML SYRINGE IVP PRN ×2 (09:07→10:10)
--- NOTE | 2020-05-23 10:06 | P.PN ---
Subjective Progress Note Date: 05/23/20 Principal diagnosis: bowel obstruction 2/2 malignancy Pt is a little more comfortable today when seen. We discussed the concerning findings of the Surgeon Objective - Vital Signs Vital signs: Vital Signs Temp 98.1 F 05/23/20 08:00 Pulse 61 05/23/20 08:00 Resp 18 05/23/20 08:00 BP 152/78 05/23/20 08:00 Pulse Ox 96 05/23/20 09:41 Intake & Output 05/22/20 05/23/20 05/23/20 18:59 06:59 18:59 Output Total 350 900 300 Balance -350 -900 -300 Output: Urine 300 800 250 Stool 50 100 50 Other: Voiding Method Ileal Conduit (Right) Ileal Conduit (Right) Ileal Conduit (Left) Ileal Conduit (Left) # Voids 1 1 - Constitutional General appearance: Present: mild distress, thin - EENT Eyes: Present: anicteric sclerae, EOMI ENT: Present: hearing grossly normal - Respiratory Details: resp even and unlabored - Peripheral edema leg Peripheral Edema: bilateral: None - Gastrointestinal Gastrointestinal Comment(s): pt is guarding, abd was not warm to light touch - Neurologic Neurologic: Present: CNII-XII intact - Musculoskeletal Musculoskeletal: Present: generalized weakness - Psychiatric Psychiatric: Present: A&O x's 3, appropriate affect, intact judgment & insight - Labs CBC & Chem 7: 05/23/20 07:56 05/23/20 07:56 Labs: Abnormal Lab Results - Last 24 Hours (Table) 05/22/20 05/22/20 05/22/20 Range/Units 11:22 17:18 20:15 WBC (3.8-10.6) k/uL RBC (4.30-5.90) m/uL Hgb (13.0-17.5) gm/dL Hct (39.0-53.0) % MCHC (31.0-37.0) g/dL RDW (11.5-15.5) % Potassium (3.5-5.1) mmol/L Chloride (98-107) mmol/L Carbon Dioxide (22-30) mmol/L BUN (9-20) mg/dL Creatinine (0.66-1.25) mg/dL Glucose (74-99) mg/dL POC Glucose (mg/dL) 123 H 116 H 114 H (75-99) mg/dL 05/23/20 05/23/20 Range/Units 07:56 07:56 WBC 18.3 H (3.8-10.6) k/uL RBC 3.60 L (4.30-5.90) m/uL Hgb 9.0 L (13.0-17.5) gm/dL Hct 30.6 L (39.0-53.0) % MCHC 29.4 L (31.0-37.0) g/dL RDW 19.1 H (11.5-15.5) % Potassium 5.7 H (3.5-5.1) mmol/L Chloride 116 H (98-107) mmol/L Carbon Dioxide 12 L (22-30) mmol/L BUN 45 H (9-20) mg/dL Creatinine 2.23 H (0.66-1.25) mg/dL Glucose 107 H (74-99) mg/dL POC Glucose (mg/dL) (75-99) mg/dL Microbiology - Last 24 Hours (Table) 05/20/20 14:34 Urine Culture - Final Urine,Voided Enterococcus faecalis 05/20/20 16:12 Blood Culture - Preliminary Blood No Growth after 48 hours Assessment and Plan (1) Bowel obstruction Narrative/Plan: Patient had palliative diverting ostomy with omentectomy. Hope procedure will help pt to feel better. Current Visit: Yes Status: Acute Priority: High Code(s): K56.609 - UNSP INTESTNL OBST, UNSP TO PARTIAL VERSUS COMPLETE OBST SNOMED Code(s): 19739835 (2) Urothelial carcinoma of bladder Narrative/Plan: Patient was going to start some treatment last week but, unfortunately he presented with recurrence of symptoms such as fatigue, weakness. He was not ready to begin therapy at that time. This progressed to his current situation of bowel obstruction needing palliative surgery. Did discuss with pt the findings the Surgeon reviewed with me yesterday. The tissue removed had visible malignant studding. We discussed that this would be progression of cancer. We reviewed that he needed surgery to prevent total obstruction. AQll pt immediate questions were answered to the best of my ability. Pt is not a candidate for treatment post op for at least 3-4 weeks (carbo/gemzar was planned). We will see how pt progresses. Current Visit: Yes Status: Acute Priority: High Code(s): C67.9 - MALIGNANT NEOPLASM OF BLADDER, UNSPECIFIED SNOMED Code(s): 327550953
[2020-05-23] MEDS: HYDROmorphone PCA 10 MG/50 ML BAG IV PRN (10:55)
[2020-05-23] MEDS: HYDROmorphone 1 MG/ML 1 ML SYRINGE IVP PRN (11:21)
[2020-05-23] MEDS ORDERED: LIDOCAINE 1% INJ 10MG/ML (20 ML MDV) SQ ONE (11:41)
--- NOTE | 2020-05-23 12:30 | P.PN ---
Subjective Progress Note Date: 05/23/20 Principal diagnosis: CC: abdominal pain Patient is still complaining of intractable abdominal pain. Patient stated that he is not amenable to having a percutaneous nephrostomy tube placed. He is currently on a SPECIAL SERVICES COORDINATOR pump. Objective - Vital Signs Vital signs: Vital Signs Temp 98.1 F 05/23/20 08:00 Pulse 113 H 05/23/20 11:57 Resp 18 05/23/20 08:00 BP 139/65 05/23/20 11:57 Pulse Ox 96 05/23/20 11:57 Intake & Output 05/22/20 05/23/20 05/23/20 18:59 06:59 18:59 Output Total 350 900 300 Balance -350 -900 -300 Output: Urine 300 800 250 Stool 50 100 50 Other: Voiding Method Ileal Conduit (Right) Ileal Conduit (Right) Ileal Conduit (Left) Ileal Conduit (Left) # Voids 1 1 - Exam General examination - Alert and Oriented 3 in NAD, appears chronically debilitated Heart - + S1S2 no murmurs Lungs - Clear to auscultation Abdomen soft NT ND +ve BS, + ostomy with stool output Extremities - No edema 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 Psych - Calm and cooperative - Labs CBC & Chem 7: 05/23/20 07:56 05/23/20 07:56 Labs: Abnormal Lab Results - Last 24 Hours (Table) 05/22/20 05/22/20 05/23/20 Range/Units 17:18 20:15 07:56 WBC 18.3 H (3.8-10.6) k/uL RBC 3.60 L (4.30-5.90) m/uL Hgb 9.0 L (13.0-17.5) gm/dL Hct 30.6 L (39.0-53.0) % MCHC 29.4 L (31.0-37.0) g/dL RDW 19.1 H (11.5-15.5) % Potassium (3.5-5.1) mmol/L Chloride (98-107) mmol/L Carbon Dioxide (22-30) mmol/L BUN (9-20) mg/dL Creatinine (0.66-1.25) mg/dL Glucose (74-99) mg/dL POC Glucose (mg/dL) 116 H 114 H (75-99) mg/dL 05/23/20 Range/Units 07:56 WBC (3.8-10.6) k/uL RBC (4.30-5.90) m/uL Hgb (13.0-17.5) gm/dL Hct (39.0-53.0) % MCHC (31.0-37.0) g/dL RDW (11.5-15.5) % Potassium 5.7 H (3.5-5.1) mmol/L Chloride 116 H (98-107) mmol/L Carbon Dioxide 12 L (22-30) mmol/L BUN 45 H (9-20) mg/dL Creatinine 2.23 H (0.66-1.25) mg/dL Glucose 107 H (74-99) mg/dL POC Glucose (mg/dL) (75-99) mg/dL Microbiology - Last 24 Hours (Table) 05/20/20 14:34 Urine Culture - Final Urine,Voided Enterococcus faecalis 05/20/20 16:12 Blood Culture - Preliminary Blood No Growth after 48 hours Assessment and Plan Assessment: 1. Small vs Large Bowel Obstruction 2. DM, Type II 3. 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 CKD III 5. Hypothyroidism 80 year old man with bladder obstruction due to cancer warranting b/l nephrostomy tubes presented initially for abdominal pain and leaking tubes, hwoever, was noted to have distended and painful abdomen with evidence of obstruction on imaging; surgery admitted with medicine consult for further treatment. #Type 2 DM -Lispro insulin sliding scale, blood glucose monitoring -HgbA1c is 7.6 #Hypothyroidism -Continue with home levothyroxine #Abnormal UA -Likely colonization in setting of chronic urinary retention #Small bowel obstruction -Will defer management to surgical service -Ex Lap today 05/21 #Inoperable bladder ca -Patient notes that he has not been able to follow-up with Oncologists to schedule his Chemotherapy treatments as of yet -Oncology on board #Mild JUDD on Chronic kidney disease (baseline creatinine 1.6-2.1) -Likely due to obstruction -Patient's left percutaneous nephrostomy tube was dislodged and he was initially refusing to have it replaced. Patient now amenable. INR will be replacing the PCN today. -Increasing DVT prophylaxis -Lovenox
[2020-05-23] MEDS ORDERED: SODIUM POLYSTYRENE SULFONATE 15 GM/60 ML BOTTLE PO STA (12:39)
--- NOTE | 2020-05-23 12:48 | P.PN ---
Progress Note - Text Progress Note Date: 05/23/20 Patient was in his room receiving a nephrostomy tube in interventional radiology.
[2020-05-23 13:36] VITALS: BMI 20.2
[2020-05-24] MEDS: MORPHINE SULFATE 4 MG/ML SYRINGE IVP PRN ×3 (00:31→06:33)
[2020-05-24] MEDS: SODIUM CHLORIDE 0.9% 1,000 ML IV SCH ×2 (00:34→13:00)
[2020-05-24] MEDS: PIPERACILLIN-TAZOBACTAM 3.375 GM in SODIUM CHLORIDE 0.9% 100 ML IVPB SCH ×3 (00:36→16:18)
[2020-05-24] MEDS: LEVOTHYROXINE 50 MCG TAB PO SCH (06:26)
[2020-05-24 07:41] LABS: Anisocytosis Slight; Basophils # (A) 0.1 k/uL (0-0.2); Basophils % (A) 0 %; Eosinophils # (A) 0.2 k/uL (0-0.7); Eosinophils % (A) 1 %; HGB 9.2 gm/dL (13.0-17.5); Hypochromasia Marked; Lymphocytes % (A) 7 %; MCH 24.9 pg (25.0-35.0); MCHC 29.6 g/dL (31.0-37.0); MCV 83.9 fL (80.0-100.0); Microcytosis Slight; Monocytes # (A) 0.7 k/uL (0-1.0); Monocytes % (A) 5 %; Neutrophils % (A) 85 %; Platelet Count 359 k/uL (150-450); RBC 3.69 m/uL (4.30-5.90); WBC 14.2 k/uL (3.8-10.6)
[2020-05-24] MEDS: ENOXAPARIN 30 MG/0.3 ML SYRINGE SQ SCH (08:06)
[2020-05-24] MEDS: PANTOPRAZOLE 40 MG TABLET PO SCH (08:06)
[2020-05-24] MEDS: SERTRALINE 25 MG TAB PO SCH (08:07)
[2020-05-24] MEDS: INSULIN ASPART (NovoLOG) 100 UNIT/ML VIAL SQ SCH ×3 (12:14→17:45)
[2020-05-24 12:48] LABS: Anion Gap 11.5 mmol/L (4.00-12.00); BUN/Creat Ratio 21.9 Ratio (12.00-20.00); Calcium 9.1 mg/dL (8.7-10.3); Carbon Dioxide 15.5 mmol/L (21.6-31.8); Magnesium 2.2 mg/dL (1.5-2.4); Non-African American GFR(CKD) 28.5 (60.0-200.0); Potassium 4.8 mmol/L (3.5-5.5)
--- NOTE | 2020-05-24 14:12 | P.PN ---
Subjective Progress Note Date: 05/24/20 CHIEF COMPLAINT: Bowel obstruction HISTORY OF PRESENT ILLNESS: The patient is a 80-year-old male status post loop colostomy, 05/21/20. Patient reports pre-existing lower abdominal cramping pain that has been present prior to his loop colostomy. Ostomy patent function with moderate gas and stool. Patient is on EPIC PROFESSIONAL. He has a urostomy tube. He reports his abdominal cramping is moderate to severe as related to his urostomy. ROS: No fevers or chills. No new chest pain. PHYSICAL EXAM: VITAL SIGNS: Reviewed CONSTITUTIONAL: Well developed and in no acute distress. EYES: Conjuctivae without sclera icterus. Extraocular movements grossly intact. HEAD, EARS, NOSE, THROAT: Moist buccal mucosa. Head is atraumatic, normocephalic. Hears conversational speech. No nasal drainage. NECK: Supple. No thyroidomegaly. RESPIRATORY: Non-labored respirations and equal bilateral excursions. CARDIOVASCULAR: Palpable 2+ radial pulses. ABDOMEN: Ostomy patent function with moderate gas and stool. Dressing intact without signs of infection. MUSCULOSKELETAL: No gross deformity of the lower extremities noted. No clubbing. No cyanosis. SKIN: Good skin turgor. Well perfused. NEUROLOGIC: Cranial nerves II through XII grossly intact. No focal or lateralizing signs. PSYCH: Appropriate affect. Alert and oriented to person, place and time. CLINICAL LABS: White blood cell count down from 18.3 to 14.2. Hgb 9.2 ASSESSMENT: 1. Colonic obstruction from carcinomatosis PLAN: 1. He reports chronic pre-existing pain. 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 Continue IV antibiotics for leukocytosis Objective - Vital Signs Vital signs: Vital Signs Temp 98.6 F 05/24/20 08:00 Pulse 89 05/24/20 08:00 Resp 18 05/24/20 08:00 BP 144/76 05/24/20 08:00 Pulse Ox 96 05/24/20 09:00 Intake & Output 05/23/20 05/24/20 05/24/20 18:59 06:59 18:59 Intake Total 100 100 Output Total 300 1605 Balance -200 -1505 Weight 58.513 kg Intake: Oral 100 100 Output: Drainage 1105 Left 375 Right 730 Urine 250 250 Stool 50 250 Other: Voiding Method Ileal Conduit (Right) Ileal Conduit (Right) Ileal Conduit (Left) Ileal Conduit (Left) # Voids 1 1 - Labs CBC & Chem 7: 05/24/20 07:14 05/24/20 07:14 Labs: Abnormal Lab Results - Last 24 Hours (Table) 05/24/20 05/24/20 Range/Units 07:14 07:14 WBC 14.2 H (3.8-10.6) k/uL RBC 3.69 L (4.30-5.90) m/uL Hgb 9.2 L (13.0-17.5) gm/dL Hct 31.0 L (39.0-53.0) % MCH 24.9 L (25.0-35.0) pg MCHC 29.6 L (31.0-37.0) g/dL RDW 19.0 H (11.5-15.5) % Neutrophils # 12.0 H (1.3-7.7) k/uL Chloride 117 H (96-109) mmol/L Carbon Dioxide 15.5 L (21.6-31.8) mmol/L BUN 46.0 H (9.0-27.0) mg/dL Creatinine 2.1 H (0.6-1.5) mg/dL Est GFR (CKD-EPI)AfAm 33.0 L (60.0-200.0) Est GFR (CKD-EPI)NonAf 28.5 L (60.0-200.0) BUN/Creatinine Ratio 21.90 H (12.00-20.00) Ratio Glucose 120 H (70-110) mg/dL Microbiology - Last 24 Hours (Table) 05/20/20 16:12 Blood Culture - Preliminary Blood No Growth after 72 hours Assessment and Plan (1) Bowel obstruction Current Visit: Yes Status: Acute Priority: High Code(s): K56.609 - UNSP INTESTNL OBST, UNSP TO PARTIAL VERSUS COMPLETE OBST SNOMED Code(s): 08826119 (2) Leukocytosis Current Visit: Yes Status: Acute Code(s): D72.829 - ELEVATED WHITE BLOOD CELL COUNT, UNSPECIFIED SNOMED Code(s): 596895730 (3) Urothelial carcinoma of bladder Current Visit: Yes Status: Acute Priority: High Code(s): C67.9 - MALIGNANT NEOPLASM OF BLADDER, UNSPECIFIED SNOMED Code(s): 628492110 (4) Chronic pain syndrome Current Visit: Yes Status: Acute Code(s): G89.4 - CHRONIC PAIN SYNDROME SNOMED Code(s): 475686745
--- NOTE | 2020-05-24 14:33 | P.PN ---
Subjective Progress Note Date: 05/24/20 Principal diagnosis: CC: abdominal pain Patient is still complaining of intractable abdominal pain. He has good output in his ostomy. Patient had left-sided nephrostomy tube replaced. Objective - Vital Signs Vital signs: Vital Signs Temp 98.6 F 05/24/20 08:00 Pulse 89 05/24/20 08:00 Resp 18 05/24/20 08:00 BP 144/76 05/24/20 08:00 Pulse Ox 96 05/24/20 09:00 Intake & Output 05/23/20 05/24/20 05/24/20 18:59 06:59 18:59 Intake Total 100 100 Output Total 300 1605 Balance -200 -1505 Weight 58.513 kg Intake: Oral 100 100 Output: Drainage 1105 Left 375 Right 730 Urine 250 250 Stool 50 250 Other: Voiding Method Ileal Conduit (Right) Ileal Conduit (Right) Ileal Conduit (Left) Ileal Conduit (Left) # Voids 1 1 - Exam General examination - Alert and Oriented 3 in NAD, appears chronically debilitated Heart - + S1S2 no murmurs Lungs - Clear to auscultation Abdomen soft NT ND +ve BS, + ostomy with stool output 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 Psych - Calm and cooperative - Labs CBC & Chem 7: 05/24/20 07:14 05/24/20 07:14 Labs: Abnormal Lab Results - Last 24 Hours (Table) 05/24/20 05/24/20 Range/Units 07:14 07:14 WBC 14.2 H (3.8-10.6) k/uL RBC 3.69 L (4.30-5.90) m/uL Hgb 9.2 L (13.0-17.5) gm/dL Hct 31.0 L (39.0-53.0) % MCH 24.9 L (25.0-35.0) pg MCHC 29.6 L (31.0-37.0) g/dL RDW 19.0 H (11.5-15.5) % Neutrophils # 12.0 H (1.3-7.7) k/uL Chloride 117 H (96-109) mmol/L Carbon Dioxide 15.5 L (21.6-31.8) mmol/L BUN 46.0 H (9.0-27.0) mg/dL Creatinine 2.1 H (0.6-1.5) mg/dL Est GFR (CKD-EPI)AfAm 33.0 L (60.0-200.0) Est GFR (CKD-EPI)NonAf 28.5 L (60.0-200.0) BUN/Creatinine Ratio 21.90 H (12.00-20.00) Ratio Glucose 120 H (70-110) mg/dL Microbiology - Last 24 Hours (Table) 05/20/20 16:12 Blood Culture - Preliminary Blood No Growth after 72 hours Assessment and Plan Assessment: 1. Small vs Large Bowel Obstruction 2. DM, Type II 3. 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 CKD III 5. Hypothyroidism 80 year old man with bladder obstruction due to cancer warranting b/l nephrostomy tubes presented initially for abdominal pain and leaking tubes, hwoever, was noted to have distended and painful abdomen with evidence of obstruction on imaging; surgery admitted with medicine consult for further treatment. #Type 2 DM -Lispro insulin sliding scale, blood glucose monitoring -HgbA1c is 7.6 #Hypothyroidism -Continue with home levothyroxine #Abnormal UA -Likely colonization in setting of chronic urinary retention #Small bowel obstruction -Will defer management to surgical service -Ex Lap today 05/21 #Inoperable bladder ca -Patient notes that he has not been able to follow-up with Oncologists to schedule his Chemotherapy treatments as of yet -Oncology on board #Mild JUDD on Chronic kidney disease (baseline creatinine 1.6-2.1) -Likely due to obstruction -Patient's left percutaneous nephrostomy tube was dislodged and he was initially refusing to have it replaced. Patient now amenable. IR will be replaced the PCN on 05/23. -Improving DVT prophylaxis -Lovenox
[2020-05-24] MEDS: LACTATED RINGERS 1,000 ML IV SCH (16:17)
[2020-05-25] MEDS: PIPERACILLIN-TAZOBACTAM 3.375 GM in SODIUM CHLORIDE 0.9% 100 ML IVPB SCH ×3 (00:32→16:02)
[2020-05-25] MEDS ORDERED: HYDROmorphone PCA 10 MG/50 ML BAG IV PRN (00:46)
[2020-05-25] MEDS: INSULIN ASPART (NovoLOG) 100 UNIT/ML VIAL SQ SCH ×5 (05:01→21:58)
[2020-05-25 06:07] LABS: Anisocytosis Slight; Basophils % (A) 0 %; Eosinophils # (A) 0.2 k/uL (0-0.7); Eosinophils % (A) 1 %; HCT 31.6 % (39.0-53.0); HGB 9.4 gm/dL (13.0-17.5); Hypochromasia Marked; Lymphocytes # (A) 0.7 k/uL (1.0-4.8); Lymphocytes % (A) 5 %; MCHC 29.6 g/dL (31.0-37.0); MCV 84.4 fL (80.0-100.0); Mean Platelet Volume 6.9; Microcytosis Slight; Monocytes # (A) 0.6 k/uL (0-1.0); Monocytes % (A) 4 %; Neutrophils # (A) 12.1 k/uL (1.3-7.7); Neutrophils % (A) 86 %; Platelet Count 363 k/uL (150-450); RBC 3.75 m/uL (4.30-5.90); RDW 18.9 % (11.5-15.5)
[2020-05-25] MEDS: LACTATED RINGERS 1,000 ML IV SCH ×2 (07:43→16:03)
[2020-05-25] MEDS: SERTRALINE 25 MG TAB PO SCH (07:45)
[2020-05-25] MEDS: ENOXAPARIN 30 MG/0.3 ML SYRINGE SQ SCH (07:45)
[2020-05-25] MEDS: LEVOTHYROXINE 50 MCG TAB PO SCH (07:46)
[2020-05-25] MEDS: PANTOPRAZOLE 40 MG TABLET PO SCH (07:46)
[2020-05-25 09:42] LABS: African American GFR (CKD) 39.7 (60.0-200.0); Anion Gap 12.6 mmol/L (4.00-12.00); BUN/Creat Ratio 21.67 Ratio (12.00-20.00); Calcium 9.4 mg/dL (8.7-10.3); Carbon Dioxide 16.4 mmol/L (21.6-31.8); Non-African American GFR(CKD) 34.3 (60.0-200.0); Potassium 4.9 mmol/L (3.5-5.5)
--- NOTE | 2020-05-25 11:29 | P.PN ---
Subjective Progress Note Date: 05/25/20 Principal diagnosis: CC: abdominal pain Patient states that his symptoms are improving gradually every day. He states that he was able to sit in a chair yesterday. He does not feel he is ready for discharge. 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 Per nurse patient has good output in his ostomy. Objective - Vital Signs Vital signs: Vital Signs Temp 97.8 F 05/25/20 08:00 Pulse 71 05/25/20 08:00 Resp 18 05/25/20 08:00 BP 178/76 05/25/20 08:00 Pulse Ox 100 05/25/20 08:00 Intake & Output 05/24/20 05/25/20 05/25/20 18:59 06:59 18:59 Intake Total 840 Output Total 1000 1675 Balance -1000 -835 Intake: Intake, IV Titration 600 Amount Lactated Ringers 1,000 ml 600 @ 75 mls/hr IV .[id number] [facility] Rx#:[id number] Oral 240 Output: Drainage 650 Left 250 Right 400 Urine 1000 475 Stool 550 Other: Voiding Method Ileal Conduit (Right) Ileal Conduit (Right) Ileal Conduit (Left) Ileal Conduit (Left) - Exam General examination - Alert and Oriented 3 in NAD, appears chronically debilitated Heart - + S1S2 no murmurs Lungs - Clear to auscultation Abdomen soft NT ND +ve BS, + ostomy with stool output Extremities - No edema 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0 H (9.0-27.0) mg/dL Creatinine 2.1 H 1.8 H (0.6-1.5) mg/dL Est GFR (CKD-EPI)AfAm 33.0 L 39.7 L (60.0-200.0) Est GFR (CKD-EPI)NonAf 28.5 L 34.3 L (60.0-200.0) BUN/Creatinine Ratio 21.90 H 21.67 H (12.00-20.00) Ratio Glucose 120 H 114 H (70-110) mg/dL Microbiology - Last 24 Hours (Table) 05/20/20 16:12 Blood Culture - Preliminary Blood No Growth after 96 hours Assessment and Plan Assessment: 1. Small vs Large Bowel Obstruction 2. DM, Type II 3. 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 CKD III 5. Hypothyroidism 80 year old man with bladder obstruction due to cancer warranting b/l nephrostomy tubes presented initially for abdominal pain and leaking tubes, hwoever, was noted to have distended and painful abdomen with evidence of obstruction on imaging; surgery admitted with medicine consult for further treatment. 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 Patient now amenable. IR will be replaced the PCN on 05/23. -Improving DVT prophylaxis -Lovenox
--- NOTE | 2020-05-25 12:43 | P.PN ---
Subjective Progress Note Date: 05/25/20 CHIEF COMPLAINT: Bowel obstruction HISTORY OF PRESENT ILLNESS: The patient is a 80-year-old male status post loop colostomy, 05/21/20. Yesterday, was notified by nursing last night patient is hungry and what liquids. His ostomy is working. He does report taking narcotics at home for chronic pain. He is tolerating liquid diet. "I don't have an appetite for much." ROS: No fevers or chills. No new chest pain. PHYSICAL EXAM: VITAL SIGNS: Reviewed CONSTITUTIONAL: Well developed and in no acute distress. EYES: Conjuctivae without sclera icterus. Extraocular movements grossly intact. HEAD, EARS, NOSE, THROAT: Moist buccal mucosa. Head is atraumatic, normocephalic. Hears conversational speech. No nasal drainage. NECK: Supple. No thyroidomegaly. RESPIRATORY: Non-labored respirations and equal bilateral excursions. CARDIOVASCULAR: Palpable 2+ radial pulses. ABDOMEN: Ostomy patent function with moderate gas and stool. Dressing intact without signs of infection. MUSCULOSKELETAL: No gross deformity of the lower extremities noted. No clubbing. No cyanosis. SKIN: Good skin turgor. Well perfused. NEUROLOGIC: Cranial nerves II through XII grossly intact. No focal or lateralizing signs. PSYCH: Appropriate affect. Alert and oriented to person, place and time. CLINICAL LABS: White blood cell count down from 18.3 to 14.2, now 14.0. Hgb 9.2, now 9.4. Creatinine improved 2.1-1.8 ASSESSMENT: 1. 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 Bladder cancer metastases PLAN: 1. Will advance diet to full liquid diet including protein supplementation 2. Will resume home pain medication management Objective - Vital Signs Vital signs: Vital Signs Temp 97.8 F 05/25/20 08:00 Pulse 71 05/25/20 08:00 Resp 18 05/25/20 08:00 BP 178/76 05/25/20 08:00 Pulse Ox 100 05/25/20 09:00 Intake & Output 05/24/20 05/25/20 05/25/20 18:59 06:59 18:59 Intake Total 840 Output Total 1000 1675 Balance -1000 -835 Weight 58.513 kg Intake: Intake, IV Titration 600 Amount Lactated Ringers 1,000 ml 600 @ 75 mls/hr IV .[id number] [facility] Rx#:[id number] Oral 240 Output: Drainage 650 Left 250 Right 400 Urine 1000 475 Stool 550 Other: Voiding Method Ileal Conduit (Right) Ileal Conduit (Right) Ileal Conduit (Left) Ileal Conduit (Left) - Labs CBC & Chem 7: 05/25/20 05:43 05/25/20 05:43 Labs: Abnormal Lab Results - Last 24 Hours (Table) 05/24/20 05/25/20 05/25/20 Range/Units 07:14 05:43 05:43 WBC 14.0 H (3.8-10.6) k/uL RBC 3.75 L (4.30-5.90) m/uL Hgb 9.4 L (13.0-17.5) gm/dL Hct 31.6 L (39.0-53.0) % MCHC 29.6 L (31.0-37.0) g/dL RDW 18.9 H (11.5-15.5) % Neutrophils # 12.1 H (1.3-7.7) k/uL Lymphocytes # 0.7 L (1.0-4.8) k/uL Chloride 117 H 115 H (96-109) mmol/L Carbon Dioxide 15.5 L 16.4 L (21.6-31.8) mmol/L Anion Gap 12.60 H (4.00-12.00) mmol/L BUN 46.0 H 39.0 H (9.0-27.0) mg/dL Creatinine 2.1 H 1.8 H (0.6-1.5) mg/dL Est GFR (CKD-EPI)AfAm 33.0 L 39.7 L (60.0-200.0) Est GFR (CKD-EPI)NonAf 28.5 L 34.3 L (60.0-200.0) BUN/Creatinine Ratio 21.90 H 21.67 H (12.00-20.00) Ratio Glucose 120 H 114 H (70-110) mg/dL Microbiology - Last 24 Hours (Table) 05/20/20 16:12 Blood Culture - Preliminary Blood No Growth after 96 hours Assessment and Plan (1) Bowel obstruction Current Visit: Yes Status: Acute Priority: High Code(s): K56.609 - UNSP INTESTNL OBST, UNSP TO PARTIAL VERSUS COMPLETE OBST SNOMED Code(s): 80379563 (2) Leukocytosis Current Visit: Yes Status: Acute Code(s): D72.829 - ELEVATED WHITE BLOOD CELL COUNT, UNSPECIFIED SNOMED Code(s): 463045141 (3) Urothelial carcinoma of bladder Current Visit: Yes Status: Acute Priority: High Code(s): C67.9 - MALIGNANT NEOPLASM OF BLADDER, UNSPECIFIED SNOMED Code(s): 077325224 (4) Chronic pain syndrome Current Visit: Yes Status: Acute Code(s): G89.4 - CHRONIC PAIN SYNDROME SNOMED Code(s): 283857154
[2020-05-26] MEDS: PIPERACILLIN-TAZOBACTAM 3.375 GM in SODIUM CHLORIDE 0.9% 100 ML IVPB SCH ×4 (00:52→23:52)
[2020-05-26] MEDS: LEVOTHYROXINE 50 MCG TAB PO SCH (06:01)
[2020-05-26] MEDS: LACTATED RINGERS 1,000 ML IV SCH ×2 (06:21→20:59)
[2020-05-26 07:35] LABS: Anisocytosis Slight; Basophils % (A) 0 %; Eosinophils # (A) 0.2 k/uL (0-0.7); Eosinophils % (A) 1 %; HCT 33.2 % (39.0-53.0); HGB 10.1 gm/dL (13.0-17.5); Hypochromasia Marked; Lymphocytes # (A) 0.8 k/uL (1.0-4.8); Lymphocytes % (A) 6 %; MCH 24.8 pg (25.0-35.0); MCHC 30.6 g/dL (31.0-37.0); Mean Platelet Volume 6.9; Microcytosis Slight; Monocytes # (A) 0.6 k/uL (0-1.0); Monocytes % (A) 5 %; Neutrophils # (A) 11.9 k/uL (1.3-7.7); Neutrophils % (A) 87 %; Platelet Count 412 k/uL (150-450); RDW 18.9 % (11.5-15.5); WBC 13.7 k/uL (3.8-10.6)
[2020-05-26] MEDS: INSULIN ASPART (NovoLOG) 100 UNIT/ML VIAL SQ SCH ×4 (09:06→20:53)
[2020-05-26] MEDS: PANTOPRAZOLE 40 MG TABLET PO SCH (09:07)
[2020-05-26] MEDS: ENOXAPARIN 30 MG/0.3 ML SYRINGE SQ SCH (09:07)
[2020-05-26] MEDS: SERTRALINE 25 MG TAB PO SCH (09:08)
[2020-05-26 09:27] LABS: Glucose,Whole Blood 98 mg/dL (75-99)
[2020-05-26 09:27] LABS: Glucose,Whole Blood 124 mg/dL (75-99)
[2020-05-26 09:27] LABS: Glucose,Whole Blood 121 mg/dL (75-99)
[2020-05-26 09:27] LABS: Glucose,Whole Blood 97 mg/dL (75-99)
[2020-05-26 09:27] LABS: Glucose,Whole Blood 110 mg/dL (75-99)
[2020-05-26 09:27] LABS: Glucose,Whole Blood 164 mg/dL (75-99)
[2020-05-26 09:27] LABS: Glucose,Whole Blood 111 mg/dL (75-99)
[2020-05-26 09:27] LABS: Glucose,Whole Blood 102 mg/dL (75-99)
[2020-05-26 09:27] LABS: Glucose,Whole Blood 114 mg/dL (75-99)
[2020-05-26 09:27] LABS: Glucose,Whole Blood 139 mg/dL (75-99)
[2020-05-26 09:30] LABS: Glucose,Whole Blood 207 mg/dL (75-99)
[2020-05-26 09:30] LABS: Glucose,Whole Blood 160 mg/dL (75-99)
--- NOTE | 2020-05-26 10:06 | P.PN ---
Subjective Progress Note Date: 05/26/20 No acute overnight event, bilateral PCN draining clear yellow urine. Creat stable Objective - Vital Signs Vital signs: Vital Signs Temp 97.4 F L 05/26/20 08:00 Pulse 98 05/26/20 08:00 Resp 18 05/26/20 08:00 BP 165/74 05/26/20 08:00 Pulse Ox 100 05/26/20 08:00 Intake & Output 05/25/20 05/26/20 05/26/20 18:59 06:59 18:59 Intake Total 100 Output Total 875 1625 Balance -775 -1625 Weight 58.513 kg Intake: Other 100 Output: Drainage 400 Left 100 Right 300 Urine 600 350 Stool 275 875 Other: Voiding Method Ileal Conduit (Right) Ileal Conduit (Right) Ileal Conduit (Left) Ileal Conduit (Left) # Bowel Movements 200 - Constitutional General appearance: Present: mild distress - Gastrointestinal General gastrointestinal: Present: soft - Genitourinary Genitourinary Comment(s): bilateral PCN with clear yellow urine - Psychiatric Psychiatric: Present: A&O x's 3 - Labs CBC & Chem 7: 05/26/20 06:46 05/25/20 05:43 Labs: Abnormal Lab Results - Last 24 Hours (Table) 05/23/20 05/23/20 05/24/20 Range/Units 07:13 16:53 07:31 WBC (3.8-10.6) k/uL RBC (4.30-5.90) m/uL Hgb (13.0-17.5) gm/dL Hct (39.0-53.0) % MCH (25.0-35.0) pg MCHC (31.0-37.0) g/dL RDW (11.5-15.5) % Neutrophils # (1.3-7.7) k/uL Lymphocytes # (1.0-4.8) k/uL POC Glucose (mg/dL) 111 H 102 H 124 H (75-99) mg/dL 05/24/20 05/24/20 05/25/20 Range/Units 11:48 16:46 07:34 WBC (3.8-10.6) k/uL RBC (4.30-5.90) m/uL Hgb (13.0-17.5) gm/dL Hct (39.0-53.0) % MCH (25.0-35.0) pg MCHC (31.0-37.0) g/dL RDW (11.5-15.5) % Neutrophils # (1.3-7.7) k/uL Lymphocytes # (1.0-4.8) k/uL POC Glucose (mg/dL) 114 H 110 H 121 H (75-99) mg/dL 05/25/20 05/25/20 05/25/20 Range/Units 11:45 16:51 20:53 WBC (3.8-10.6) k/uL RBC (4.30-5.90) m/uL Hgb (13.0-17.5) gm/dL Hct (39.0-53.0) % MCH (25.0-35.0) pg MCHC (31.0-37.0) g/dL RDW (11.5-15.5) % Neutrophils # (1.3-7.7) k/uL Lymphocytes # (1.0-4.8) k/uL POC Glucose (mg/dL) 164 H 139 H 160 H (75-99) mg/dL 05/26/20 05/26/20 Range/Units 06:46 07:42 WBC 13.7 H (3.8-10.6) k/uL RBC 4.10 L (4.30-5.90) m/uL Hgb 10.1 L (13.0-17.5) gm/dL Hct 33.2 L (39.0-53.0) % MCH 24.8 L (25.0-35.0) pg MCHC 30.6 L (31.0-37.0) g/dL RDW 18.9 H (11.5-15.5) % Neutrophils # 11.9 H (1.3-7.7) k/uL Lymphocytes # 0.8 L (1.0-4.8) k/uL POC Glucose (mg/dL) 207 H (75-99) mg/dL Microbiology - Last 24 Hours (Table) 05/20/20 16:12 Blood Culture - Preliminary Blood No Growth after 120 hours
--- NOTE | 2020-05-26 11:02 | P.PN ---
Subjective Progress Note Date: 05/26/20 CHIEF COMPLAINT: Bowel obstruction HISTORY OF PRESENT ILLNESS: The patient is a 80-year-old male status post loop colostomy, 05/21/20. He tolerated full liquid diet. Ostomy is patent. ROS: No fevers or chills. No new chest pain. PHYSICAL EXAM: VITAL SIGNS: Reviewed CONSTITUTIONAL: Well developed and in no acute distress. EYES: Conjuctivae without sclera icterus. Extraocular movements grossly intact. HEAD, EARS, NOSE, THROAT: Moist buccal mucosa. Head is atraumatic, normocephalic. Hears conversational speech. No nasal drainage. NECK: Supple. No thyroidomegaly. RESPIRATORY: Non-labored respirations and equal bilateral excursions. CARDIOVASCULAR: Palpable 2+ radial pulses. ABDOMEN: Ostomy patent function with moderate gas and stool. No abdominal distention.. MUSCULOSKELETAL: No gross deformity of the lower extremities noted. No clubbing. No cyanosis. SKIN: Good skin turgor. Well perfused. NEUROLOGIC: Cranial nerves II through XII grossly intact. No focal or lateralizing signs. PSYCH: Appropriate affect. Alert and oriented to person, place and time. CLINICAL LABS: White blood cell count down 14.0 to 13.7 ASSESSMENT: 1. 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 Bladder cancer metastases PLAN: 1. Advance diet to low fiber 2. Start of oral pain medications advised. Objective - Vital Signs Vital signs: Vital Signs Temp 97.4 F L 05/26/20 08:00 Pulse 98 05/26/20 08:00 Resp 18 05/26/20 08:00 BP 165/74 05/26/20 08:00 Pulse Ox 100 05/26/20 08:00 Intake & Output 05/25/20 05/26/20 05/26/20 18:59 06:59 18:59 Intake Total 100 300 Output Total 875 1625 360 Balance -775 -1625 -60 Weight 58.513 kg Intake: Oral 300 Other 100 Output: Drainage 400 360 Left 100 110 Right 300 250 Urine 600 350 Stool 275 875 Other: Voiding Method Ileal Conduit (Right) Ileal Conduit (Right) Ileal Conduit (Left) Ileal Conduit (Left) # Bowel Movements 200 - Labs CBC & Chem 7: 05/26/20 06:46 05/25/20 05:43 Labs: Abnormal Lab Results - Last 24 Hours (Table) 05/23/20 05/23/20 05/24/20 Range/Units 07:13 16:53 07:31 WBC (3.8-10.6) k/uL RBC (4.30-5.90) m/uL Hgb (13.0-17.5) gm/dL Hct (39.0-53.0) % MCH (25.0-35.0) pg MCHC (31.0-37.0) g/dL RDW (11.5-15.5) % Neutrophils # (1.3-7.7) k/uL Lymphocytes # (1.0-4.8) k/uL POC Glucose (mg/dL) 111 H 102 H 124 H (75-99) mg/dL 05/24/20 05/24/20 05/25/20 Range/Units 11:48 16:46 07:34 WBC (3.8-10.6) k/uL RBC (4.30-5.90) m/uL Hgb (13.0-17.5) gm/dL Hct (39.0-53.0) % MCH (25.0-35.0) pg MCHC (31.0-37.0) g/dL RDW (11.5-15.5) % Neutrophils # (1.3-7.7) k/uL Lymphocytes # (1.0-4.8) k/uL POC Glucose (mg/dL) 114 H 110 H 121 H (75-99) mg/dL 05/25/20 05/25/20 05/25/20 Range/Units 11:45 16:51 20:53 WBC (3.8-10.6) k/uL RBC (4.30-5.90) m/uL Hgb (13.0-17.5) gm/dL Hct (39.0-53.0) % MCH (25.0-35.0) pg MCHC (31.0-37.0) g/dL RDW (11.5-15.5) % Neutrophils # (1.3-7.7) k/uL Lymphocytes # (1.0-4.8) k/uL POC Glucose (mg/dL) 164 H 139 H 160 H (75-99) mg/dL 05/26/20 05/26/20 Range/Units 06:46 07:42 WBC 13.7 H (3.8-10.6) k/uL RBC 4.10 L (4.30-5.90) m/uL Hgb 10.1 L (13.0-17.5) gm/dL Hct 33.2 L (39.0-53.0) % MCH 24.8 L (25.0-35.0) pg MCHC 30.6 L (31.0-37.0) g/dL RDW 18.9 H (11.5-15.5) % Neutrophils # 11.9 H (1.3-7.7) k/uL Lymphocytes # 0.8 L (1.0-4.8) k/uL POC Glucose (mg/dL) 207 H (75-99) mg/dL Microbiology - Last 24 Hours (Table) 05/20/20 16:12 Blood Culture - Preliminary Blood No Growth after 120 hours Assessment and Plan (1) Bowel obstruction Current Visit: Yes Status: Acute Priority: High Code(s): K56.609 - UNSP INTESTNL OBST, UNSP TO PARTIAL VERSUS COMPLETE OBST SNOMED Code(s): 74232764 (2) Leukocytosis Current Visit: Yes Status: Acute Code(s): D72.829 - ELEVATED WHITE BLOOD CE LL COUNT, UNSPECIFIED SNOMED Code(s): 611991921 (3) Urothelial carcinoma of bladder Current Visit: Yes Status: Acute Priority: High Code(s): C67.9 - MALIGNANT NEOPLASM OF BLADDER, UNSPECIFIED SNOMED Code(s): 617784234 (4) Chronic pain syndrome Current Visit: Yes Status: Acute Code(s): G89.4 - CHRONIC PAIN SYNDROME SNOMED Code(s): 060311919
[2020-05-26 11:49] LABS: Glucose,Whole Blood 138 mg/dL (75-99)
[2020-05-26 12:34] LABS: African American GFR (CKD) 53.8 (60.0-200.0); Anion Gap 12.8 mmol/L (4.00-12.00); BUN/Creat Ratio 18.57 Ratio (12.00-20.00); Calcium 9.2 mg/dL (8.7-10.3); Carbon Dioxide 18.2 mmol/L (21.6-31.8); Non-African American GFR(CKD) 46.5 (60.0-200.0); Potassium 3.9 mmol/L (3.5-5.5)
--- NOTE | 2020-05-26 13:24 | P.PN ---
Subjective Progress Note Date: 05/26/20 Principal diagnosis: CC: abdominal pain Patient states that he was not able to sit in chair yesterday due to the intractable lower quadrant abdominal pain. Patient is still on a HEARING AID ASSISTANT pump Objective - Vital Signs Vital signs: Vital Signs Temp 97.4 F L 05/26/20 08:00 Pulse 98 05/26/20 08:00 Resp 18 05/26/20 08:00 BP 165/74 05/26/20 08:00 Pulse Ox 100 05/26/20 08:00 Intake & Output 05/25/20 05/26/20 05/26/20 18:59 06:59 18:59 Intake Total 100 300 Output Total 875 1625 360 Balance -775 -1625 -60 Weight 58.513 kg Intake: Oral 300 Other 100 Output: Drainage 400 360 Left 100 110 Right 300 250 Urine 600 350 Stool 275 875 Other: Voiding Method Ileal Conduit (Right) Ileal Conduit (Right) Ileal Conduit (Left) Ileal Conduit (Left) # Bowel Movements 200 - Exam General examination - Alert and Oriented 3 in NAD, appears chronically debilitated Heart - + S1S2 no murmurs Lungs - Clear to auscultation Abdomen soft NT ND +ve BS, + ostomy with stool output Extremities - 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 Psych - Calm and cooperative - Labs CBC & Chem 7: 05/26/20 06:46 05/26/20 06:46 Labs: Abnormal Lab Results - Last 24 Hours (Table) 05/23/20 05/23/20 05/24/20 Range/Units 07:13 16:53 07:31 WBC (3.8-10.6) k/uL RBC (4.30-5.90) m/uL Hgb (13.0-17.5) gm/dL Hct (39.0-53.0) % MCH (25.0-35.0) pg MCHC (31.0-37.0) g/dL RDW (11.5-15.5) % Neutrophils # (1.3-7.7) k/uL Lymphocytes # (1.0-4.8) k/uL Chloride (96-109) mmol/L Carbon Dioxide (21.6-31.8) mmol/L Anion Gap (4.00-12.00) mmol/L Est GFR (CKD-EPI)AfAm (60.0-200.0) Est GFR (CKD-EPI)NonAf (60.0-200.0) Glucose (70-110) mg/dL POC Glucose (mg/dL) 111 H 102 H 124 H (75-99) mg/dL 05/24/20 05/24/20 05/25/20 Range/Units 11:48 16:46 07:34 WBC (3.8-10.6) k/uL RBC (4.30-5.90) m/uL Hgb (13.0-17.5) gm/dL Hct (39.0-53.0) % MCH (25.0-35.0) pg MCHC (31.0-37.0) g/dL RDW (11.5-15.5) % Neutrophils # (1.3-7.7) k/uL Lymphocytes # (1.0-4.8) k/uL Chloride (96-109) mmol/L Carbon Dioxide (21.6-31.8) mmol/L Anion Gap (4.00-12.00) mmol/L Est GFR (CKD-EPI)AfAm (60.0-200.0) Est GFR (CKD-EPI)NonAf (60.0-200.0) Glucose (70-110) mg/dL POC Glucose (mg/dL) 114 H 110 H 121 H (75-99) mg/dL 05/25/20 05/25/20 05/25/20 Range/Units 11:45 16:51 20:53 WBC (3.8-10.6) k/uL RBC (4.30-5.90) m/uL Hgb (13.0-17.5) gm/dL Hct (39.0-53.0) % MCH (25.0-35.0) pg MCHC (31.0-37.0) g/dL RDW (11.5-15.5) % Neutrophils # (1.3-7.7) k/uL Lymphocytes # (1.0-4.8) k/uL Chloride (96-109) mmol/L Carbon Dioxide (21.6-31.8) mmol/L Anion Gap (4.00-12.00) mmol/L Est GFR (CKD-EPI)AfAm (60.0-200.0) Est GFR (CKD-EPI)NonAf (60.0-200.0) Glucose (70-110) mg/dL POC Glucose (mg/dL) 164 H 139 H 160 H (75-99) mg/dL 05/26/20 05/26/20 05/26/20 Range/Units 06:46 06:46 07:42 WBC 13.7 H (3.8-10.6) k/uL RBC 4.10 L (4.30-5.90) m/uL Hgb 10.1 L (13.0-17.5) gm/dL Hct 33.2 L (39.0-53.0) % MCH 24.8 L (25.0-35.0) pg MCHC 30.6 L (31.0-37.0) g/dL RDW 18.9 H (11.5-15.5) % Neutrophils # 11.9 H (1.3-7.7) k/uL Lymphocytes # 0.8 L (1.0-4.8) k/uL Chloride 111 H (96-109) mmol/L Carbon Dioxide 18.2 L (21.6-31.8) mmol/L Anion Gap 12.80 H (4.00-12.00) mmol/L Est GFR (CKD-EPI)AfAm 53.8 L (60.0-200.0) Est GFR (CKD-EPI)NonAf 46.5 L (60.0-200.0) Glucose 159 H (70-110) mg/dL POC Glucose (mg/dL) 207 H (75-99) mg/dL 05/26/20 Range/Units 11:46 WBC (3.8-10.6) k/uL RBC (4.30-5.90) m/uL Hgb (13.0-17.5) gm/dL Hct (39.0-53.0) % MCH (25.0-35.0) pg MCHC (31.0-37.0) g/dL RDW (11.5-15.5) % Neutrophils # (1.3-7.7) k/uL Lymphocytes # (1.0-4.8) k/uL Chloride (96-109) mmol/L Carbon Dioxide (21.6-31.8) mmol/L Anion Gap (4.00-12.00) mmol/L Est GFR (CKD-EPI)AfAm (60.0-200.0) Est GFR (CKD-EPI)NonAf (60.0-200.0) Glucose (70-110) mg/dL POC Glucose (mg/dL) 138 H (75-99) mg/dL Microbiology - Last 24 Hours (Table) 05/20/20 16:12 Blood Culture - Preliminary Blood No Growth after 120 hours Assessment and Plan Assessment: 1. Small vs Large Bowel Obstruction 2. DM, Type II 3. 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 CKD III 5. Hypothyroidism 80 year old man with bladder obstruction due to cancer warranting b/l nephrostomy tubes presented initially for abdominal pain and leaking tubes, hwoever, was noted to have distended and painful abdomen with evidence of obstruction on imaging; surgery admitted with medicine consult for further treatment. 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 Patient now amenable. IR will be replaced the PCN on 05/23. -Improving DVT prophylaxis -Lovenox
[2020-05-26] MEDS: HYDROcodone/APAP 5-325MG 1 EACH TAB PO PRN (14:22)
[2020-05-26 16:57] LABS: Glucose,Whole Blood 169 mg/dL (75-99)
[2020-05-26] MEDS: HYDROmorphone 1 MG/ML 1 ML SYRINGE IVP PRN ×2 (17:41→20:59)
[2020-05-26 20:36] LABS: Glucose,Whole Blood 118 mg/dL (75-99)
[2020-05-27] MEDS: LEVOTHYROXINE 50 MCG TAB PO SCH (05:28)
[2020-05-27 06:54] LABS: Anisocytosis Slight; Basophils % (A) 0 %; Eosinophils # (A) 0.3 k/uL (0-0.7); Eosinophils % (A) 2 %; HCT 29.7 % (39.0-53.0); HGB 9.4 gm/dL (13.0-17.5); Hypochromasia Marked; Lymphocytes # (A) 0.9 k/uL (1.0-4.8); Lymphocytes % (A) 7 %; MCH 25.5 pg (25.0-35.0); MCHC 31.5 g/dL (31.0-37.0); MCV 81.1 fL (80.0-100.0); Microcytosis Slight; Monocytes # (A) 0.6 k/uL (0-1.0); Monocytes % (A) 5 %; Neutrophils # (A) 11.3 k/uL (1.3-7.7); Neutrophils % (A) 85 %; Platelet Count 395 k/uL (150-450); RBC 3.66 m/uL (4.30-5.90); RDW 18.8 % (11.5-15.5); WBC 13.3 k/uL (3.8-10.6)
[2020-05-27] MEDS: HYDROmorphone 1 MG/ML 1 ML SYRINGE IVP PRN ×2 (07:26→20:07)
[2020-05-27 08:19] LABS: Glucose,Whole Blood 132 mg/dL (75-99)
[2020-05-27] MEDS: HYDROcodone/APAP 5-325MG 1 EACH TAB PO PRN (09:04)
[2020-05-27] MEDS: PANTOPRAZOLE 40 MG TABLET PO SCH (09:04)
[2020-05-27] MEDS: SERTRALINE 25 MG TAB PO SCH (09:04)
[2020-05-27] MEDS: ENOXAPARIN 30 MG/0.3 ML SYRINGE SQ SCH (09:04)
[2020-05-27] MEDS: INSULIN ASPART (NovoLOG) 100 UNIT/ML VIAL SQ SCH ×4 (09:05→20:21)
[2020-05-27] MEDS: PIPERACILLIN-TAZOBACTAM 3.375 GM in SODIUM CHLORIDE 0.9% 100 ML IVPB SCH ×2 (09:05→17:49)
[2020-05-27] MEDS: LACTATED RINGERS 1,000 ML IV SCH ×2 (09:15→23:18)
[2020-05-27 09:51] LABS: African American GFR (CKD) 58.9 (60.0-200.0); BUN/Creat Ratio 18.46 Ratio (12.00-20.00); Calcium 8.7 mg/dL (8.7-10.3); Non-African American GFR(CKD) 50.8 (60.0-200.0); Potassium 3.5 mmol/L (3.5-5.5)
[2020-05-27] MEDS ORDERED: HYDROcodone/APAP 5-325MG 1 EACH TAB PO PRN (10:22)
--- NOTE | 2020-05-27 10:28 | P.PN ---
Subjective Progress Note Date: 05/27/20 Principal diagnosis: CC: abdominal pain Patient is now off the FINANCIAL ASSISTANCE ADVISOR pump. He is now on oral and IV pain meds. Patient states that it took him 45 minutes to get his pain meds this morning. I had a long discussion with the patient about hospice. Patient at this time does not want hospice. He wants to go home. I told patient that he is not safe to go home. After lengthy discussion he is considering going to a fpc facility. I also spoke with oncology who said that they will discuss hospice with him as well. Objective - Vital Signs Vital signs: Vital Signs Temp 98.0 F 05/27/20 07:25 Pulse 97 05/27/20 07:25 Resp 16 05/27/20 07:25 BP 165/86 05/27/20 07:25 Pulse Ox 98 05/27/20 07:25 Intake & Output 05/26/20 05/27/20 05/27/20 18:59 06:59 18:59 Intake Total 500 180 Output Total 835 600 100 Balance -335 -600 80 Intake: Oral 500 180 Output: Drainage 360 Left 110 Right 250 Urine 375 600 Stool 100 100 Other: Voiding Method Ileal Conduit (Right) Ileal Conduit (Right) Ileal Conduit (Left) Ileal Conduit (Left) - Exam General examination - Alert and Oriented 3 in NAD, appears chronically debilitated Heart - + S1S2 no murmurs Lungs - Clear to auscultation Abdomen diffuse tenderness to palpate in the lower quadrants, + ostomy with stool output Extremities - No edema 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 Psych - Calm and cooperative - Labs CBC & Chem 7: 05/27/20 06:32 05/27/20 06:32 Labs: Abnormal Lab Results - Last 24 Hours (Table) 05/26/20 05/26/20 05/26/20 Range/Units 06:46 11:46 16:56 WBC (3.8-10.6) k/uL RBC (4.30-5.90) m/uL Hgb (13.0-17.5) gm/dL Hct (39.0-53.0) % RDW (11.5-15.5) % Neutrophils # (1.3-7.7) k/uL Lymphocytes # (1.0-4.8) k/uL Chloride 111 H (96-109) mmol/L Carbon Dioxide 18.2 L (21.6-31.8) mmol/L Anion Gap 12.80 H (4.00-12.00) mmol/L Est GFR (CKD-EPI)AfAm 53.8 L (60.0-200.0) Est GFR (CKD-EPI)NonAf 46.5 L (60.0-200.0) Glucose 159 H (70-110) mg/dL POC Glucose (mg/dL) 138 H 169 H (75-99) mg/dL 05/26/20 05/27/20 05/27/20 Range/Units 20:34 06:32 06:32 WBC 13.3 H (3.8-10.6) k/uL RBC 3.66 L (4.30-5.90) m/uL Hgb 9.4 L (13.0-17.5) gm/dL Hct 29.7 L (39.0-53.0) % RDW 18.8 H (11.5-15.5) % Neutrophils # 11.3 H (1.3-7.7) k/uL Lymphocytes # 0.9 L (1.0-4.8) k/uL Chloride 114 H (96-109) mmol/L Carbon Dioxide 17.0 L (21.6-31.8) mmol/L Anion Gap (4.00-12.00) mmol/L Est GFR (CKD-EPI)AfAm 58.9 L (60.0-200.0) Est GFR (CKD-EPI)NonAf 50.8 L (60.0-200.0) Glucose 130 H (70-110) mg/dL POC Glucose (mg/dL) 118 H (75-99) mg/dL 05/27/20 Range/Units 08:07 WBC (3.8-10.6) k/uL RBC (4.30-5.90) m/uL Hgb (13.0-17.5) gm/dL Hct (39.0-53.0) % RDW (11.5-15.5) % Neutrophils # (1.3-7.7) k/uL Lymphocytes # (1.0-4.8) k/uL Chloride (96-109) mmol/L Carbon Dioxide (21.6-31.8) mmol/L Anion Gap (4.00-12.00) mmol/L Est GFR (CKD-EPI)AfAm (60.0-200.0) Est GFR (CKD-EPI)NonAf (60.0-200.0) Glucose (70-110) mg/dL POC Glucose (mg/dL) 132 H (75-99) mg/dL Microbiology - Last 24 Hours (Table) 05/20/20 16:12 Blood Culture - Final Blood No Growth after 144 hours Assessment and Plan Assessment: 1. Small vs Large Bowel Obstruction 2. DM, Type II 3. 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 CKD III 5. Hypothyroidism 80 year old man with bladder obstruction due to cancer warranting b/l nephrostomy tubes presented initially for abdominal pain and leaking tubes, hwoever, was noted to have distended and painful abdomen with evidence of obstruction on imaging; surgery admitted with medicine consult for further treatment. #Type 2 DM -Lispro insulin sliding scale, blood glucose monitoring -HgbA1c is 7.6 #Hypothyroidism -Continue with home levothyroxine #Abnormal UA -Likely colonization in setting of chronic urinary retention #Small bowel obstruction -We'll defer management to surgery -Status post loop colostomy -Patient has good output and his ostomy bag -Patient now off [employer] pump. He is now on oral and IV pain meds. -Exploratory laparotomy patient was found to have colonic obstruction with carcinomatosis -Patient is on Zosyn -PT OT consult #Bladder cancer with metastasis -Patient notes that he has not been able to follow-up with Oncologists to schedule his Chemotherapy treatments as of yet -I discussed with oncology who agrees with hospice. I discussed with patient about hospice however he declined. Oncology will also discuss with patient about hospice. #Mild JUDD on Chronic kidney disease (baseline creatinine 1.6-2.1) -Likely due to obstruction -Patient's left percutaneous nephrostomy tube was dislodged and he was initially refusing to have it replaced. Patient now amenable. IR will be replaced the PCN on 05/23. -Resolved Prognosis is guarded DVT prophylaxis -Lovenox
[2020-05-27] MEDS: LIDOCAINE 5% PATCH TOPICAL SCH (11:23)
[2020-05-27 11:44] LABS: Glucose,Whole Blood 161 mg/dL (75-99)
--- NOTE | 2020-05-27 14:06 | P.PN ---
Progress Note - Text Progress Note Date: 05/27/20 Patient states his pain is improved. He has had some stool output through his colostomy. On exam vital signs are stable. Abdomen soft. Status post colostomy for colonic obstruction. Patient can be have supportive care.
[2020-05-27 17:12] LABS: Glucose,Whole Blood 171 mg/dL (75-99)
--- NOTE | 2020-05-27 17:28 | P.PN ---
Subjective Progress Note Date: 05/27/20 Principal diagnosis: Progressive cancer Patient seen and examined this am, Dr. Correa had long discussion with patient regarding the progressive picture of his cancer, evidenced with peritoneal involvement ultimately responsible for obstruction and his uncontrolled pain. Pain medication was changed to PO norco TID yesterday although absorption is questioned. He also states if his pain was controlled he feels he maybe able to move around better. Therefore a long acting transdermal absorption is likely to be better suited for his cancer pain at this time. We will add Fentanyl patch 25mcg and change [place] to Roxicodone liquid for breakthrough. As far as his cancer goes, and the complication of requiring emergent surgical intervention, it appears the progression has been rapid. The time he will require for healing, increased performance and strength, it is unlikely we will be able to get ahead of his disease to obtain control, increased quality and quantity of life. Therefore we discussed a change of overall goals of care with the presentation of comfort measures and option of home hospice care. He understands the severity and difficult situation we are faced with and at this time agrees that controlling his pain will be the main goal. Plan to intervene new pain management today, and tomorrow am will discuss his final decision on if he would like to talk further with hospice. Objective - Vital Signs Vital signs: Vital Signs Temp 98.0 F 05/27/20 07:25 Pulse 97 05/27/20 07:25 Resp 16 05/27/20 07:25 BP 165/86 05/27/20 07:25 Pulse Ox 98 05/27/20 07:25 Intake & Output 05/26/20 05/27/20 05/27/20 18:59 06:59 18:59 Intake Total 500 180 Output Total 835 600 100 Balance -335 -600 80 Intake: Oral 500 180 Output: Drainage 360 Left 110 Right 250 Urine 375 600 Stool 100 100 Other: Voiding Method Ileal Conduit (Right) Ileal Conduit (Right) Ileal Conduit (Left) Ileal Conduit (Left) - Exam - Constitutional General appearance: Present: cooperative, severe distress, thin - EENT Eyes: Present: anicteric sclerae, EOMI ENT: Present: hearing grossly normal - Respiratory Respiratory: bilateral: CTA - Cardiovascular Details: tachy Heart sounds: normal: S1, S2 - Gastrointestinal Gastrointestinal Comment(s): midline incision dressing intact, Postitive output in ostomy. Tenderness to pelvic area General gastrointestinal: Present: tenderness - Integumentary Integumentary: Present: pale - Neurologic Neurologic: Present: CNII-XII intact - Musculoskeletal Musculoskeletal: Present: generalized weakness - Psychiatric Psychiatric: Present: A&O x's 3, appropriate affect, intact judgment & insight - Labs CBC & Chem 7: 05/27/20 06:32 05/27/20 06:32 Labs: Abnormal Lab Results - Last 24 Hours (Table) 05/26/20 05/26/20 05/26/20 Range/Units 06:46 11:46 16:56 WBC (3.8-10.6) k/uL RBC (4.30-5.90) m/uL Hgb (13.0-17.5) gm/dL Hct (39.0-53.0) % RDW (11.5-15.5) % Neutrophils # (1.3-7.7) k/uL Lymphocytes # (1.0-4.8) k/uL Chloride 111 H (96-109) mmol/L Carbon Dioxide 18.2 L (21.6-31.8) mmol/L Anion Gap 12.80 H (4.00-12.00) mmol/L Est GFR (CKD-EPI)AfAm 53.8 L (60.0-200.0) Est GFR (CKD-EPI)NonAf 46.5 L (60.0-200.0) Glucose 159 H (70-110) mg/dL POC Glucose (mg/dL) 138 H 169 H (75-99) mg/dL 05/26/20 05/27/20 05/27/20 Range/Units 20:34 06:32 06:32 WBC 13.3 H (3.8-10.6) k/uL RBC 3.66 L (4.30-5.90) m/uL Hgb 9.4 L (13.0-17.5) gm/dL Hct 29.7 L (39.0-53.0) % RDW 18.8 H (11.5-15.5) % Neutrophils # 11.3 H (1.3-7.7) k/uL Lymphocytes # 0.9 L (1.0-4.8) k/uL Chloride 114 H (96-109) mmol/L Carbon Dioxide 17.0 L (21.6-31.8) mmol/L Anion Gap (4.00-12.00) mmol/L Est GFR (CKD-EPI)AfAm 58.9 L (60.0-200.0) Est GFR (CKD-EPI)NonAf 50.8 L (60.0-200.0) Glucose 130 H (70-110) mg/dL POC Glucose (mg/dL) 118 H (75-99) mg/dL 05/27/20 Range/Units 08:07 WBC (3.8-10.6) k/uL RBC (4.30-5.90) m/uL Hgb (13.0-17.5) gm/dL Hct (39.0-53.0) % RDW (11.5-15.5) % Neutrophils # (1.3-7.7) k/uL Lymphocytes # (1.0-4.8) k/uL Chloride (96-109) mmol/L Carbon Dioxide (21.6-31.8) mmol/L Anion Gap (4.00-12.00) mmol/L Est GFR (CKD-EPI)AfAm (60.0-200.0) Est GFR (CKD-EPI)NonAf (60.0-200.0) Glucose (70-110) mg/dL POC Glucose (mg/dL) 132 H (75-99) mg/dL Microbiology - Last 24 Hours (Table) 05/20/20 16:12 Blood Culture - Final Blood No Growth after 144 hours Assessment and Plan (1) Abdominal pain Current Visit: Yes Status: Acute Code(s): R10.9 - UNSPECIFIED ABDOMINAL PAIN SNOMED Code(s): 00746450 (2) Bowel obstruction Current Visit: Yes Status: Acute Priority: High Code(s): K56.609 - UNSP INTESTNL OBST, UNSP TO PARTIAL VERSUS COMPLETE OBST SNOMED Code(s): 89585699 (3) Urothelial carcinoma of bladder Current Visit: Yes Status: Acute Priority: High Code(s): C67.9 - MALIGNANT NEOPLASM OF BLADDER, UNSPECIFIED SNOMED Code(s): 789465555 Plan: Assessment and Plan Bowel obstruction - Patient Status Post palliative diverting ostomy with omentectomy. - Pain is still persistent, therefore likely secondary to his identified rapidily progressive metastatic cancer - Output in ostomy and incision CDI Urothelial carcinoma of bladder - Progression of disease and changes of overal goals of care discussed in detail with patient. Recommendation for comfort measures, also discussed with primary team. - Increase and change in pain management for most allowance of relief given possible decrease absorption \: Fentanyl 25mcg patch and po roxicodone liquid, reassess pain in am and if better control obtained will re-discuss plan for discharge with hospice care if agreeable. Greater than 25 minutes counseling and coordinating care Physician Attest: I have completed the full history and physical and developed t he above impression and plan, agree with TAR KETTLE RUNNER dictation, dictateed as a scribe.
[2020-05-27 20:17] LABS: Glucose,Whole Blood 121 mg/dL (75-99)
[2020-05-28] MEDS: HYDROmorphone 1 MG/ML 1 ML SYRINGE IVP PRN ×4 (03:16→20:31)
[2020-05-28] MEDS: LEVOTHYROXINE 50 MCG TAB PO SCH (05:36)
[2020-05-28 06:58] LABS: Glucose,Whole Blood 103 mg/dL (75-99)
[2020-05-28 07:40] LABS: Anisocytosis Slight; Basophils % (A) 0 %; Eosinophils # (A) 0.4 k/uL (0-0.7); Eosinophils % (A) 3 %; HCT 32.2 % (39.0-53.0); HGB 9.6 gm/dL (13.0-17.5); Hypochromasia Marked; Lymphocytes # (A) 1.2 k/uL (1.0-4.8); Lymphocytes % (A) 9 %; MCHC 29.9 g/dL (31.0-37.0); MCV 83.6 fL (80.0-100.0); Mean Platelet Volume 6.8; Microcytosis Slight; Monocytes # (A) 0.8 k/uL (0-1.0); Monocytes % (A) 6 %; Neutrophils # (A) 10.9 k/uL (1.3-7.7); Neutrophils % (A) 80 %; Platelet Count 408 k/uL (150-450); RBC 3.86 m/uL (4.30-5.90); RDW 18.8 % (11.5-15.5); WBC 13.7 k/uL (3.8-10.6)
[2020-05-28] MEDS: INSULIN ASPART (NovoLOG) 100 UNIT/ML VIAL SQ SCH ×4 (08:44→20:32)
[2020-05-28] MEDS: LACTATED RINGERS 1,000 ML IV SCH (08:56)
[2020-05-28] MEDS: SERTRALINE 25 MG TAB PO SCH (08:58)
[2020-05-28] MEDS: PANTOPRAZOLE 40 MG TABLET PO SCH (08:58)
[2020-05-28] MEDS: ENOXAPARIN 40 MG/0.4 ML SYRINGE SQ SCH (08:58)
[2020-05-28] MEDS: LIDOCAINE 5% PATCH TOPICAL SCH (09:12)
[2020-05-28] MEDS: ONDANSETRON 4 MG/2 ML VIAL IVP PRN (09:29)
--- NOTE | 2020-05-28 10:54 | P.PN ---
Subjective Progress Note Date: 05/28/20 No new complaints. Pt still complaining of significant abdominal pain. Has not moved much from bed since surgery. Pt relays his confusion when discussing hospice. Attempted to explain again to patient today what the situation was, but he appeared to have very little insight. Objective - Vital Signs Vital signs: Vital Signs Temp 97.9 F 05/28/20 07:47 Pulse 93 05/28/20 07:47 Resp 16 05/28/20 07:47 BP 162/78 05/28/20 07:47 Pulse Ox 100 05/28/20 07:47 Intake & Output 05/27/20 05/28/20 05/28/20 18:59 06:59 18:59 Intake Total 180 236 Output Total 650 800 750 Balance -470 -800 -514 Weight 58.513 kg Intake: Oral 180 236 Output: Drainage 250 Left 50 Right 200 Urine 350 550 650 Stool 300 Urine/Stool Mix 100 Other: Voiding Method Ileal Conduit (Right) Ileal Conduit (Left) # Voids 1 # Bowel Movements 1 1 - Exam Gen: awake, alert HEENT: normocephalic, atraumatic, good hearing acuity, moist mucous membranes Resp: good air exchange, breathing comfortably with no accessory muscle use CVS: good distal perfusion x 4, GI: Diffusely tender palpation, most in the left lower quadrant, very distended : no SPT, no CVAT, skelton catheter not present, bilateral nephrostomy tubes MSK: no pitting edema, no clubbing Neuro: non-focal, moving all extremities Psych: cooperative, euthymic mood - Labs CBC & Chem 7: 05/28/20 07:20 05/27/20 06:32 Labs: Abnormal Lab Results - Last 24 Hours (Table) 05/27/20 05/27/20 05/27/20 Range/Units 11:41 17:09 20:15 WBC (3.8-10.6) k/uL RBC (4.30-5.90) m/uL Hgb (13.0-17.5) gm/dL Hct (39.0-53.0) % MCHC (31.0-37.0) g/dL RDW (11.5-15.5) % Neutrophils # (1.3-7.7) k/uL POC Glucose (mg/dL) 161 H 171 H 121 H (75-99) mg/dL 05/28/20 05/28/20 Range/Units 06:56 07:20 WBC 13.7 H (3.8-10.6) k/uL RBC 3.86 L (4.30-5.90) m/uL Hgb 9.6 L (13.0-17.5) gm/dL Hct 32.2 L (39.0-53.0) % MCHC 29.9 L (31.0-37.0) g/dL RDW 18.8 H (11.5-15.5) % Neutrophils # 10.9 H (1.3-7.7) k/uL POC Glucose (mg/dL) 103 H (75-99) mg/dL Assessment and Plan Assessment: 1. Small vs Large Bowel Obstruction 2. DM, Type II 3. 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 CKD III 5. Hypothyroidism 80 year old man with bladder obstruction due to cancer warranting b/l nephrostomy tubes presented initially for abdominal pain and leaking tubes, hwoever, was noted to have distended and painful abdomen with evidence of obstruction on imaging; surgery admitted with medicine consult for further treatment. Type 2 DM -Lispro insulin sliding scale, blood glucose monitoring -Check A1c Hypothyroidism -Continue with home levothyroxine Abnormal UA -Likely colonization in setting of chronic urinary retention Small bowel obstruction -Will defer management to surgical service -Ex Lap today 05/21 Inoperable bladder ca -Patient notes that he has not been able to follow-up with Oncologists to schedule his Chemotherapy treatments as of yet -Oncology consult for suspicion of local spread with possible resultant obstruc tion Chronic kidney disease -Improved from baseline -Continue to monitor for now DVT prophylaxis -Lovenox
[2020-05-28 10:59] LABS: African American GFR (CKD) 53.8 (60.0-200.0); Anion Gap 9.2 mmol/L (4.00-12.00); BUN/Creat Ratio 16.43 Ratio (12.00-20.00); Calcium 8.9 mg/dL (8.7-10.3); Carbon Dioxide 19.8 mmol/L (21.6-31.8); Magnesium 1.7 mg/dL (1.5-2.4); Non-African American GFR(CKD) 46.5 (60.0-200.0); Potassium 3.6 mmol/L (3.5-5.5)
[2020-05-28 11:48] LABS: Glucose,Whole Blood 200 mg/dL (75-99)
--- NOTE | 2020-05-28 13:06 | P.PN ---
Progress Note - Text Progress Note Date: 05/28/20 Patient's pain is slightly improved. He has had some output through his colostomy. On exam vital signs are stable. Abdomen soft. There is some mild tenderness in the lower quadrants. Metastatic ureteral cancer. Patient to receive supportive care.
[2020-05-28 16:51] LABS: Glucose,Whole Blood 123 mg/dL (75-99)
--- NOTE | 2020-05-28 17:37 | P.PN ---
Subjective Progress Note Date: 05/28/20 Principal diagnosis: Progressive cancer Objective - Vital Signs Vital signs: Vital Signs Temp 97.9 F 05/28/20 14:00 Pulse 80 05/28/20 14:00 Resp 16 05/28/20 14:00 BP 144/64 05/28/20 14:00 Pulse Ox 100 05/28/20 14:00 Intake & Output 05/27/20 05/28/20 05/28/20 18:59 06:59 18:59 Intake Total 180 416 Output Total 650 800 950 Balance -470 -800 -534 Weight 58.513 kg Intake: Oral 180 416 Output: Drainage 250 Left 50 Right 200 Urine 350 550 850 Stool 300 Urine/Stool Mix 100 Other: Voiding Method Ileal Conduit (Right) Ileal Conduit (Left) # Voids 1 # Bowel Movements 1 1 - Exam - Constitutional General appearance: Present: cooperative, severe distress, thin - EENT Eyes: Present: anicteric sclerae, EOMI ENT: Present: hearing grossly normal - Respiratory Respiratory: bilateral: CTA - Cardiovascular Details: tachy Heart sounds: normal: S1, S2 - Gastrointestinal Gastrointestinal Comment(s): midline incision dressing intact, Postitive output in ostomy. Tenderness to pelvic area General gastrointestinal: Present: tenderness - Integumentary Integumentary: Present: pale - Neurologic Neurologic: Present: CNII-XII intact - Musculoskeletal Musculoskeletal: Present: generalized weakness - Psychiatric Psychiatric: Present: A&O x's 3, appropriate affect, intact judgment & insight - Labs CBC & Chem 7: 05/28/20 07:20 05/28/20 07:09 Labs: Abnormal Lab Results - Last 24 Hours (Table) 05/27/20 05/28/20 05/28/20 Range/Units 20:15 06:56 07:09 WBC (3.8-10.6) k/uL RBC (4.30-5.90) m/uL Hgb (13.0-17.5) gm/dL Hct (39.0-53.0) % MCHC (31.0-37.0) g/dL RDW (11.5-15.5) % Neutrophils # (1.3-7.7) k/uL Chloride 112 H (96-109) mmol/L Carbon Dioxide 19.8 L (21.6-31.8) mmol/L Est GFR (CKD-EPI)AfAm 53.8 L (60.0-200.0) Est GFR (CKD-EPI)NonAf 46.5 L (60.0-200.0) Glucose 120 H (70-110) mg/dL POC Glucose (mg/dL) 121 H 103 H (75-99) mg/dL 05/28/20 05/28/20 05/28/20 Range/Units 07:20 11:46 16:49 WBC 13.7 H (3.8-10.6) k/uL RBC 3.86 L (4.30-5.90) m/uL Hgb 9.6 L (13.0-17.5) gm/dL Hct 32.2 L (39.0-53.0) % MCHC 29.9 L (31.0-37.0) g/dL RDW 18.8 H (11.5-15.5) % Neutrophils # 10.9 H (1.3-7.7) k/uL Chloride (96-109) mmol/L Carbon Dioxide (21.6-31.8) mmol/L Est GFR (CKD-EPI)AfAm (60.0-200.0) Est GFR (CKD-EPI)NonAf (60.0-200.0) Glucose (70-110) mg/dL POC Glucose (mg/dL) 200 H 123 H (75-99) mg/dL Assessment and Plan (1) Abdominal pain Current Visit: Yes Status: Acute Code(s): R10.9 - UNSPECIFIED ABDOMINAL PAIN SNOMED Code(s): 50900180 (2) Bowel obstruction Current Visit: Yes Status: Acute Priority: High Code(s): K56.609 - UNSP INTESTNL OBST, UNSP TO PARTIAL VERSUS COMPLETE OBST SNOMED Code(s): 40138996 (3) Urothelial carcinoma of bladder Current Visit: Yes Status: Acute Priority: High Code(s): C67.9 - MALIGNANT NEOPLASM OF BLADDER, UNSPECIFIED SNOMED Code(s): 129848832 Plan: Assessment and Plan Bowel obstruction - Patient Status Post palliative diverting ostomy with omentectomy. - Pain is still persistent, therefore likely secondary to his identified rapidily progressive metastatic cancer - Output in ostomy and incision CDI Urothelial carcinoma of bladder - Progression of disease and changes of overal goals of care discussed in detail with patient. Recommendation for comfort measures, also discussed with primary team. - Increase and change in pain management has helped and patient much more co mfortable, with the exception of "spasm, cramping" labile pain events (limited length and sudden on set) Greater than 25 minutes counseling and coordinating care Patient has decided on hospice care, we also discussed resucitation wishes and at this time he wishes to not undergo any life saving methods (no cpr, no intubation, no cardioversion, no cardiac medications) - This will be changed. He is concerned about where he will undergo hospice care and is adament he does not want a detention atmosphere, we discussed seeing if possible for hospice house admission. He has also asked for contact to family. Plan to continue fentanyl at discharge
[2020-05-28 20:07] LABS: Glucose,Whole Blood 166 mg/dL (75-99)
[2020-05-29] MEDS: LACTATED RINGERS 1,000 ML IV SCH ×2 (01:42→08:07)
[2020-05-29] MEDS: HYDROmorphone 1 MG/ML 1 ML SYRINGE IVP PRN ×2 (03:02→19:01)
[2020-05-29] MEDS: LEVOTHYROXINE 50 MCG TAB PO SCH (05:33)
[2020-05-29] MEDS: MORPHINE ORAL SOLN 10 MG/5 ML CUP PO PRN (05:45)
[2020-05-29 07:21] LABS: Glucose,Whole Blood 125 mg/dL (75-99)
[2020-05-29] MEDS: PANTOPRAZOLE 40 MG TABLET PO SCH (07:59)
[2020-05-29] MEDS: INSULIN ASPART (NovoLOG) 100 UNIT/ML VIAL SQ SCH ×4 (07:59→20:58)
[2020-05-29] MEDS: LIDOCAINE 5% PATCH TOPICAL SCH (08:00)
[2020-05-29] MEDS: SERTRALINE 25 MG TAB PO SCH (08:00)
[2020-05-29] MEDS: ENOXAPARIN 40 MG/0.4 ML SYRINGE SQ SCH (08:00)
[2020-05-29 11:52] LABS: Glucose,Whole Blood 187 mg/dL (75-99)
--- NOTE | 2020-05-29 12:25 | P.PN ---
Subjective Progress Note Date: 05/29/20 Principal diagnosis: Colon obstruction Patient doing better today. Pain is controlled. He is tolerating his diet. He would like more solid foods at this time. Objective - Vital Signs Vital signs: Vital Signs Temp 98.5 F 05/29/20 08:00 Pulse 87 05/29/20 08:00 Resp 16 05/29/20 08:00 BP 158/52 05/29/20 08:00 Pulse Ox 99 05/29/20 08:00 Intake & Output 05/28/20 05/29/20 05/29/20 18:59 06:59 18:59 Intake Total 526 236 Output Total 1250 850 100 Balance -724 -850 136 Weight 58.513 kg Intake: Oral 526 236 Output: Drainage 100 Right 100 Urine 1050 700 Stool 100 50 Urine/Stool Mix 100 100 Other: Voiding Method Ileal Conduit (Right) Ileal Conduit (Left) # Voids 1 450 - Exam Abdomen: Soft, minimal distention, dressing clean and dry, ostomy functioning - Labs CBC & Chem 7: 05/28/20 07:20 05/28/20 07:09 Labs: Abnormal Lab Results - Last 24 Hours (Table) 05/28/20 05/28/20 05/29/20 Range/Units 16:49 20:02 07:20 POC Glucose (mg/dL) 123 H 166 H 125 H (75-99) mg/dL 05/29/20 Range/Units 11:51 POC Glucose (mg/dL) 187 H (75-99) mg/dL Assessment and Plan (1) Bowel obstruction Narrative/Plan: Patient tolerating diet at this time. Will increase diet further. Noted plans for hospice care at this point. We'll follow. Current Visit: Yes Status: Acute Priority: High Code(s): K56.609 - UNSP INTESTNL OBST, UNSP TO PARTIAL VERSUS COMPLETE OBST SNOMED Code(s): 81773247
--- NOTE | 2020-05-29 12:46 | P.PN ---
Subjective Progress Note Date: 05/29/20 Principal diagnosis: Abdominal pain Patient still having frequent intermittent episodes of abdominal pain that feels like a sharp sensation in the lower part of the abdomen. He woke up last night at 3:00 in the morning due to the pain. He is still on liquid diet. No nausea or vomiting. Objective - Vital Signs Vital signs: Vital Signs Temp 98.5 F 05/29/20 08:00 Pulse 87 05/29/20 08:00 Resp 16 05/29/20 08:00 BP 158/52 05/29/20 08:00 Pulse Ox 99 05/29/20 08:00 Intake & Output 05/28/20 05/29/20 05/29/20 18:59 06:59 18:59 Intake Total 526 236 Output Total 1250 850 100 Balance -724 -850 136 Weight 58.513 kg Intake: Oral 526 236 Output: Drainage 100 Right 100 Urine 1050 700 Stool 100 50 Urine/Stool Mix 100 100 Other: Voiding Method Ileal Conduit (Right) Ileal Conduit (Left) # Voids 1 450 - Labs CBC & Chem 7: 05/28/20 07:20 05/28/20 07:09 Labs: Abnormal Lab Results - Last 24 Hours (Table) 05/28/20 05/28/20 05/29/20 Range/Units 16:49 20:02 07:20 POC Glucose (mg/dL) 123 H 166 H 125 H (75-99) mg/dL 05/29/20 Range/Units 11:51 POC Glucose (mg/dL) 187 H (75-99) mg/dL Assessment and Plan Plan: 1. Small vs Large Bowel Obstruction 2. DM, Type II 3. 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 CKD III 5. Hypothyroidism 80 year old man with bladder obstruction due to cancer warranting b/l nephrostomy tubes presented initially for abdominal pain and leaking tubes, however, was noted to have distended and painful abdomen with evidence of obstruction on imaging; surgery admitted with medicine consult for further treatment. Type 2 DM -Lispro insulin sliding scale, blood glucose monitoring -No need for aggressive blood sugars controlled due to shortened life expectancy. Hypothyroidism -Continue with home levothyroxine Abnormal UA -Likely colonization in setting of chronic urinary retention Small bowel obstruction -Status post S/P partial omentectomy and loop transverse colostomy for carcinomatosis and colonic obstruction at sigmoid colon -Advance diet today according to surgery Inoperable bladder ca with severe abdominal pain -Oncology recommending hospice care, discussed with patient -Increase the dosage of fentanyl patch today, he is already on 25 mcg/hr patch, will increase to 50 mcg/hr. Chronic kidney disease -Improved from baseline -Continue to monitor for now DVT prophylaxis -Lovenox Discussed with oncology and with care management. Patient understands that hospice means applying comfort measures to his terminal condition. No further treatment for his cancer will be pursued.
--- NOTE | 2020-05-29 14:38 | P.PN ---
Subjective Progress Note Date: 05/29/20 Principal diagnosis: Progressive cancer Feeling better but still with pain, fentanyl increased to 50mcg today. ccase management and hospice team working on hospice house qualifications and admission. His code status has been changed to DNR as discussed with patient yesterday in detail. Patient seen and examined by Dr. Correa this am. Objective - Vital Signs Vital signs: Vital Signs Temp 98.5 F 05/29/20 08:00 Pulse 87 05/29/20 08:00 Resp 16 05/29/20 08:00 BP 158/52 05/29/20 08:00 Pulse Ox 99 05/29/20 08:00 Intake & Output 05/28/20 05/29/20 05/29/20 18:59 06:59 18:59 Intake Total 526 236 Output Total 1250 850 100 Balance -724 -850 136 Weight 58.513 kg Intake: Oral 526 236 Output: Drainage 100 Right 100 Urine 1050 700 Stool 100 50 Urine/Stool Mix 100 100 Other: Voiding Method Ileal Conduit (Right) Ileal Conduit (Left) # Voids 1 450 - Exam - Constitutional General appearance: Present: cooperative, severe distress, thin - EENT Eyes: Present: anicteric sclerae, EOMI ENT: Present: hearing grossly normal - Respiratory Respiratory: bilateral: CTA - Cardiovascular Details: tachy Heart sounds: normal: S1, S2 - Gastrointestinal Gastrointestinal Comment(s): midline incision dressing intact, Postitive output in ostomy. Tenderness to pelvic area General gastrointestinal: Present: tenderness - Integumentary Integumentary: Present: pale - Neurologic Neurologic: Present: CNII-XII intact - Musculoskeletal Musculoskeletal: Present: generalized weakness - Psychiatric Psychiatric: Present: A&O x's 3, appropriate affect, intact judgment & insight - Labs CBC & Chem 7: 05/28/20 07:20 05/28/20 07:09 Labs: Abnormal Lab Results - Last 24 Hours (Table) 05/28/20 05/28/20 05/29/20 Range/Units 16:49 20:02 07:20 POC Glucose (mg/dL) 123 H 166 H 125 H (75-99) mg/dL 05/29/20 Range/Units 11:51 POC Glucose (mg/dL) 187 H (75-99) mg/dL Assessment and Plan (1) Abdominal pain Current Visit: Yes Status: Acute Code(s): R10.9 - UNSPECIFIED ABDOMINAL PAIN SNOMED Code(s): 43385773 (2) Bowel obstruction Current Visit: Yes Status: Acute Priority: High Code(s): K56.609 - UNSP INTESTNL OBST, UNSP TO PARTIAL VERSUS COMPLETE OBST SNOMED Code(s): 52844067 (3) Urothelial carcinoma of bladder Current Visit: Yes Status: Acute Priority: High Code(s): C67.9 - MALIGNANT NEOPLASM OF BLADDER, UNSPECIFIED SNOMED Code(s): 273721844 Plan: Assessment and Plan Bowel obstruction - Patient Status Post palliative diverting ostomy with omentectomy. - Pain is still persistent, therefore likely secondary to his identified rapidily progressive metastatic cancer - Output in ostomy and incision CDI Urothelial carcinoma of bladder - Progression of disease and changes of overal goals of care discussed in detail with patient. Recommendation for comfort measures, also discussed with primary team. - Increase and change in pain management has helped and patient much more comfortable, with the exception of "spasm, cramping" labile pain events (limited length and sudden on set) He is concerned about where he will undergo hospice care and is adament he does not want a long-term atmosphere, we discussed seeing if possible for hospice house admission. He has also asked for contact to family. Plan to continue fentanyl at discharge at higher dose Physician Attest: I have completed the full history and physical and agree with above dictation, dictated as a scribe.
[2020-05-29 17:00] LABS: Glucose,Whole Blood 220 mg/dL (75-99)
[2020-05-29 20:03] LABS: Glucose,Whole Blood 157 mg/dL (75-99)
[2020-05-30] MEDS: HYDROmorphone 1 MG/ML 1 ML SYRINGE IVP PRN ×2 (01:47→03:50)
[2020-05-30 02:32] VITALS: RESP 16
[2020-05-30] MEDS: LACTATED RINGERS 1,000 ML IV SCH (03:53)
[2020-05-30] MEDS: LEVOTHYROXINE 50 MCG TAB PO SCH (05:50)
[2020-05-30 07:00] LABS: Glucose,Whole Blood 115 mg/dL (75-99)
[2020-05-30] MEDS: INSULIN ASPART (NovoLOG) 100 UNIT/ML VIAL SQ SCH (07:29)
[2020-05-30] MEDS: PANTOPRAZOLE 40 MG TABLET PO SCH (07:45)
[2020-05-30] MEDS: ENOXAPARIN 40 MG/0.4 ML SYRINGE SQ SCH (07:45)
[2020-05-30] MEDS: SERTRALINE 25 MG TAB PO SCH (07:45)
[2020-05-30] MEDS: MORPHINE ORAL SOLN 10 MG/5 ML CUP PO PRN ×2 (07:50→11:49)
[2020-05-30 09:15] VITALS: BP 175/83; PULSE 89; TEMP 98.6
--- NOTE | 2020-05-30 09:25 | P.DS ---
Providers Date of admission: 05/20/20 15:16 Expected date of discharge: 05/30/20 Attending physician: Ryan Garcia Consults: 05/20/20 15:17 Consult Physician Urgent Consulting Provider: Jan Mendoza Consult Reason/Comments: abd pain, bowel obstruction, bladder cancer Do you want consulting provider notified?: Yes Consult Physician Urgent Consulting Provider: Maciej Correa Consult Reason/Comments: bladder cancer with possible colonic extension Do you want consulting provider notified?: Yes 05/20/20 17:40 Consult Physician Urgent Consulting Provider: Blane Whitehead Consult Reason/Comments: bladder cancer Do you want consulting provider notified?: Yes 05/21/20 19:50 Consult Physician Stat Consulting Provider: Blane Whitehead Consult Reason/Comments: left nephrostomy tube dislodged Do you want consulting provider notified?: Already Contacted Primary care physician: Pola Rodriguez - Discharge Diagnosis(es) (1) Bowel obstruction Please refer to history and physical for details. Patient admitted with colonic obstruction. 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 Patient is interested in hospice care at this point. Initially he was thinking of going to the hospice home but now is interested in going to his son's home. Arrangements being made for home with hospice today. Current Visit: Yes Status: Acute Priority: High Patient Condition at Discharge: Serious Plan - Discharge Summary Discharge Rx Participant: No New Discharge Prescriptions: No Action Levothyroxine Sodium [Synthroid] 50 mcg PO DAILY Sertraline [Zoloft] 25 mg PO DAILY Pantoprazole Sodium [Protonix] 20 mg PO DAILY HYDROcodone/APAP 5-325MG [Minier 5-325] 1 tab PO TID PRN PRN Reason: Pain Nystatin 100,000 Unit/ml Susp [Mycostatin Oral Susp] 400,000 unit PO QID Megestrol [Megace] 80 mg PO DAILY Insulin Aspart [NovoLOG Flexpen] See Protocol SQ AC-TID Discharge Medication List Levothyroxine Sodium [Synthroid] 50 mcg PO DAILY 10/10/19 [History] Pantoprazole Sodium [Protonix] 20 mg PO DAILY 04/05/20 [History] Sertraline [Zoloft] 25 mg PO DAILY 04/05/20 [History] HYDROcodone/APAP 5-325MG [Minier 5-325] 1 tab PO TID PRN 05/09/20 [History] Insulin Aspart [NovoLOG Flexpen] See Protocol SQ AC-TID 05/20/20 [History] Megestrol [Megace] 80 mg PO DAILY 05/20/20 [History] Nystatin 100,000 Unit/ml Susp [Mycostatin Oral Susp] 400,000 unit PO QID 05/20/20 [History] Follow up Appointment(s)/Referral(s): Maciej Correa MD [STAFF PHYSICIAN] - 05/29/20 3:00 pm [facility] [REFERRING] - Pola Rodriguez MD [Primary Care Provider] - 1-2 days Patient Instructions/Handouts: Colostomy Care (GEN) Activity/Diet/Wound Care/Special Instructions: Colostomy Care Recommendations for after hospital: Last pouching system change: 05.24.2020 Mr Sorensen will have the following ostomy care items for discharge from the hospital: One piece cut to fit [facility] pouches # [id number] (three) No Sting prep pads (12) Ostomy Powder (1) Mr Sorensen is to empty the pouching system when it is 1/2 to 1/3 full while sitting on the toielt or facing the toilet while sitting on a chair. The entire pouching system is to be changed every 3-5 days Mr Sorensen will receive sample supplies for his osotmy care from [facility] in 4-7 days after discharge from the hospital
[2020-05-30] MEDS: LIDOCAINE 5% PATCH TOPICAL SCH (11:50)
--- NOTE | 2020-05-30 11:52 | IR ---
EXAMINATION TYPE: IR nephrostomy tube change DATE OF EXAM: 05/23/2020 COMPARISON: 05/10/2020 HISTORY: Accidental dislodgment of left nephrostomy tube Procedure had been discussed with the patient risks, benefits, alternatives, were discussed and any q uestions were answered. Informed consent was obtained. The patient was in a semiprone position prep ped and draped on the OR table in the usual sterile fashion. Utilizing a 4 Guyanese guidewire and a 0. 018 guidewire a single pass was made into the pre-existing tract of the prior left nephrostomy tube u nder fluoroscopic guidance. An 0.018 guidewire is passed into the renal pelvis. 5 Guyanese catheter wa s advanced over the guidewire and there was free spillage of urine. Guidewire was advanced into the u reter There was conversion to a 0.035 system and placement of the new 8.5 Guyanese nephrostomy tube over karthik dewire. Repeat imaging demonstrated ideal placement of guidewire. Approximately 1 minute of fluorosco py time 0 images submitted. IMPRESSION: 1. Successful reinsertion of a left nephrostomy tube through pre-existing tract post accidental dislo dgment under fluoroscopy..
--- NOTE | 2020-05-30 12:24 | P.PN ---
Subjective Progress Note Date: 05/30/20 Principal diagnosis: Abdominal pain Doing better, pain is improved. No fevers. Objective - Vital Signs Vital signs: Vital Signs Temp 98.6 F 05/30/20 08:00 Pulse 89 05/30/20 08:00 Resp 16 05/30/20 08:00 BP 175/83 05/30/20 08:00 Pulse Ox 96 05/30/20 02:00 Intake & Output 05/29/20 05/30/20 05/30/20 18:59 06:59 18:59 Intake Total 708 240 75 Output Total 1100 600 850 Balance -392 -360 -775 Weight 58.513 kg Intake: IV 75 Lactated Ringers 1,000 ml 75 @ 75 mls/hr IV .[id number] KAT Rx#:[id number] Oral 708 240 Output: Drainage 200 850 Left 100 300 Right 100 550 Urine 600 Stool 400 400 Urine/Stool Mix 100 Other: Voiding Method Ileal Conduit (Right) Ileal Conduit (Right) Ileal Conduit (Right) Ileal Conduit (Left) Ileal Conduit (Left) Ileal Conduit (Left) # Voids 450 - Exam Gen: awake, alert HEENT: normocephalic, atraumatic, good hearing acuity, moist mucous membranes Resp: good air exchange, breathing comfortably with no accessory muscle use CVS: good distal perfusion x 4, GI: Diffusely tender palpation, most in the left lower quadrant, very distended : no SPT, no CVAT, skelton catheter not present, bilateral nephrostomy tubes MSK: no pitting edema, no clubbing Neuro: non-focal, moving all extremities Psych: cooperative, euthymic mood - Labs CBC & Chem 7: 05/28/20 07:20 05/28/20 07:09 Labs: Abnormal Lab Results - Last 24 Hours (Table) 05/29/20 05/29/20 05/30/20 Range/Units 16:56 20:01 06:45 POC Glucose (mg/dL) 220 H 157 H 115 H (75-99) mg/dL Assessment and Plan Plan: 1. Small vs Large Bowel Obstruction 2. DM, Type II 3. 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 CKD III 5. Hypothyroidism 80 year old man with bladder obstruction due to cancer warranting b/l nephrostomy tubes presented initially for abdominal pain and leaking tubes, however, was noted to have distended and painful abdomen with evidence of obstruction on imaging; surgery admitted with medicine consult for further treatment. Type 2 DM -Lispro insulin sliding scale, blood glucose monitoring -No need for aggressive blood sugars controlled due to shortened life expectancy. Hypothyroidism -Continue with home levothyroxine Abnormal UA -Likely colonization in setting of chronic urinary retention Small bowel obstruction -Status post S/P partial omentectomy and loop transverse colostomy for carcinomatosis and colonic obstruction at sigmoid colon -Advanced diet Inoperable bladder ca with severe abdominal pain -Oncology recommending hospice care, discussed with patient -Continue fentanyl patch 50 mcg/hr. Chronic kidney disease -Improved from baseline -Continue to monitor for now DVT prophylaxis -Lovenox Discussed with care management and patient. He eventually chose to go home with hospice.
== END 2020-05-30 12:29 | disposition still patient (30) | DRG 330 ==
LOC: EC 12:29 → 5NMEDONC 15:16
PROVIDERS: ADMIT Surgery; ATTEND Surgery
PROC: 0D9670Z Drainage of Stomach with Drainage Device, Via Natural or Artificial Opening (ICD-10-PCS; 2020-05-20)
PROC: 0DBU0ZZ Excision of Omentum, Open Approach (ICD-10-PCS; principal; 2020-05-21 11:05)
PROC: 0D1L0Z4 Bypass Transverse Colon to Cutaneous, Open Approach (ICD-10-PCS; principal; 2020-05-21 11:05)
PROC: 0T25X0Z Change Drainage Device in Kidney, External Approach (ICD-10-PCS; 2020-05-30)
DX: C78.6 Secondary malignant neoplasm of retroperitoneum and peritoneum (principal); N13.30 Unspecified hydronephrosis; N17.9 Acute kidney failure, unspecified; K59.39 Other megacolon; C79.19 Secondary malignant neoplasm of other urinary organs; B37.0 Candidal stomatitis; J90 Pleural effusion, not elsewhere classified; D63.1 Anemia in chronic kidney disease; C67.9 Malignant neoplasm of bladder, unspecified; E11.22 Type 2 diabetes mellitus with diabetic chronic kidney disease; N18.30 Chronic kidney disease, stage 3 unspecified; E03.9 Hypothyroidism, unspecified; G89.4 Chronic pain syndrome; I25.10 Atherosclerotic heart disease of native coronary artery without angina pectoris; J34.2 Deviated nasal septum; G89.3 Neoplasm related pain (acute) (chronic); K57.90 Diverticulosis of intestine, part unspecified, without perforation or abscess without bleeding; Z43.6 Encounter for attention to other artificial openings of urinary tract; Z79.4 Long term (current) use of insulin; I12.9 Hypertensive chronic kidney disease with stage 1 through stage 4 chronic kidney disease, or unspecified chronic kidney disease; Z66 Do not resuscitate; Z51.5 Encounter for palliative care; Z79.890 Hormone replacement therapy; Z79.818 Long term (current) use of other agents affecting estrogen receptors and estrogen levels; Z79.899 Other long term (current) drug therapy; Z87.39 Personal history of other diseases of the musculoskeletal system and connective tissue; Z87.11 Personal history of peptic ulcer disease; Z86.19 Personal history of other infectious and parasitic diseases; Z87.440 Personal history of urinary (tract) infections; Z98.890 Other specified postprocedural states; Z87.891 Personal history of nicotine dependence; Z95.5 Presence of coronary angioplasty implant and graft; Z88.5 Allergy status to narcotic agent; Z88.1 Allergy status to other antibiotic agents; Z91.041 Radiographic dye allergy status
CPT/HCPCS: 36415; 74176; 75984; 80048; 80053; 81001; 83036; 83605; 83690; 83735; 85025; 85027; 85610; 85730; 87040; 87077; 87086; 87186; 88305; 96361; 96374; 96375; 96376; 99285